=== PATIENT | female | born 1960 | race Caucasian/White ===

== ENCOUNTER → 2018-02-22 13:40 | Outpatient (CLI) | payer MEDICARE, MEDICAID, SELFPAY ==
--- NOTE | 2018-02-22 13:44 | ECHOD_ITS ---
Reason For Study: SOB, HTN Procedure This was a 2D Doppler, Color Flow transthoracic echocardiogram. The study was technically difficult. Exam performed in department. Left Ventricle Normal size and thickness. The estimated ejection fraction is 65 %. No regional wall motion abnormalities noted. Right Ventricle Normal size and thickness. Normal systolic function. Atria The left atrium is severely enlarged. Normal right atrium. Normal atrial septum. Mitral Valve Peak transmitral valve gradient 8 mmHg. Mean transmitral valve gradient 3 mmHg. Bioprosthetic mitral valve. Stable appearing bioprosthetic mitral valve apparatus. Tricuspid Valve Normal tricuspid valve. Mild (1+) tricuspid valve insufficiency. Right ventricular systolic pressure estimated to be 39 mmHg. Mild pulmonary hypertension. Aortic Valve Trisinus/trileaflet aortic valve. Mild diffuse aortic valve thickening. Trivial aortic valve insufficiency. Pulmonic Valve Normal pulmonic valve. Trivial pulmonic valve insufficiency. Great Vessels Normal aortic root. Normal arch. Normal inferior vena cava. Inferior vena cava collapse with sniff. Pericardium/Pleural No pericardial effusion. MMode/2D Measurements & Calculations LVIDd: 4.8 cm IVSd: 1.0 cm Ao root diam: 3.0 cm LVIDs: 3.3 cm LVPWd: 1.0 cm LA dimension: 4.3 cm RVDd: 3.7 cm FS: 31.0 % LAV(MOD-bp): 105.5 ml LA A4 area: 26.7 cm2 RA A4 area: 17.3 cm2 LAV(MOD-bp) Indexed: 65.9 ml/m2 LAV(MOD-sp2): 105.4 ml LAV(MOD-sp4): 93.0 ml Doppler Measurements & Calculations MV E max andry: 127.8 cm/sec Lat Peak E' Andry: 6.6 cm/sec Med Peak E' Andry: 6.2 cm/sec MV A max andry: 135.1 cm/sec E/E' lat: 19.2 E/E' med: 20.6 MV E/A: 0.95 MV V2 max: 141.4 cm/sec Ao V2 max: 151.3 cm/sec AI max andry: 352.0 cm/sec MV max P.0 mmHg Ao max P.2 mmHg AI max P.6 mmHg MV V2 mean: 84.3 cm/sec AI dec slope: 125.9 cm/sec2 MV mean P.1 mmHg AI P1/2t: 818.8 msec MV V2 VTI: 53.0 cm LV V1 max: 143.6 cm/sec PA V2 max: 72.3 cm/sec PI dec slope: 122.8 cm/sec2 LV V1 max P.3 mmHg TR max andry: 257.2 cm/sec TR max P.7 mmHg Interpretation Summary The estimated ejection fraction is 65 %. The left atrium is severely enlarged. Normal functioning bioprosthetic mitral valve. Mild (1+) tricuspid valve insufficiency. Right ventricular systolic pressure estimated to be 39 mmHg. Mild pulmonary hypertension. Trivial aortic valve insufficiency. There is no comparison study available. Ordering Physician: James Spivey Referring Physician: Naveen Chen Performed By: Lisa Cordova RDCS, RVT
== END ==
PROVIDERS: Family Provider Internal Medicine; PCP Internal Medicine; Visit Provider Internal Medicine Cardiovascular Disease
DX: R06.02 Shortness of breath (principal); I10 Essential (primary) hypertension; Z95.2 Presence of prosthetic heart valve
CPT/HCPCS: 93306

== ENCOUNTER → 2018-04-06 12:38 | Outpatient (CLI) | payer MEDICAID, MEDICARE, SELFPAY ==
--- NOTE | 2018-04-06 13:10 | RAD_ITS ---
STUDY: X-RAY - CERVICAL SPINE REASON FOR EXAM: Female, 57 years old. Pain, stiffness TECHNIQUE: 3 view(s) of the cervical spine were obtained. COMPARISON: None FINDINGS: There is curve reversal. There is mild degenerative anterolisthesis at C2-C3. There is marked degenerative disc disease at C3-C4, C4-C5, C5-C6 and C6-C7. There is mild Luschka joint arthrosis. There is multilevel facet osteoarthritis. There is mild curvature at the cervicothoracic region with a convexity to the right. C7-T1 poorly demonstrated on the lateral view. There is no fracture. There is no osseous destruction. The prevertebral soft tissue structures are intact. Craniotomy and median sternotomy noted. RAD/Cerv Spine 2 or 3 Views IMPRESSION: Marked degenerative disease of the cervical spine Mild degenerative anterolisthesis, C2-C3 Mild curvature at the cervicothoracic region with a convexity to the right Electronically Signed: [place] MD at 9:35 EDT Tel , Service support ,
== END ==
PROVIDERS: Family Provider Internal Medicine; PCP Internal Medicine; Visit Provider Nurse Practitioner Family
DX: Z78.0 Asymptomatic menopausal state (principal); M54.2 Cervicalgia
CPT/HCPCS: 72040; 77080

== ENCOUNTER → 2018-06-05 14:00 | Outpatient (CLI) | payer MEDICARE, SELFPAY ==
[2018-06-05 15:32] LABS: Absolute Lymphocyte Count 1.55 X10^3/ul (0.83-4.51); Absolute Neutrophil Count 4.8 X10^3/uL (2.0-7.7); Basophil# 0.04 X10^3/uL; Basophil% 0.5 % (0-1); Eosinophil# 0.34 X10^3/uL; Eosinophils% 4.6 % (0-5); Hematocrit 42.5 % (37-47); Hemoglobin 13.8 g/dl (12.0-15.0); Lymphocyte # 1.55 X10^3/ul (4.0); Mean Corp Hgb Conc 32.5 g/gl (32-36); Mean Corpuscular Hgb 29.1 pg (27.0-32.0); Mean Corpuscular Volume 89.5 fL (81-99); Mean Platelet Vol. 9.7 fl (6.2-12.0); Monocyte# 0.65 X10^3/uL; Monocyte% 8.8 % (0-10); Neutrophil # 4.78 X10^3/uL (2.7-7.7); Platelet Count 163 K/mm3 (150-450); RBC Distribution Width CV 13.6 % (11.6-14.6); RBC Distribution Width SD 44.2 fl (35.1-43.9); Red Blood Count 4.75 M/mm3 (4.2-5.4); White Blood Count 7.4 K/mm3 (4.4-11.0)
[2018-06-05 15:40] LABS: POSITIVE COUNT NO; POSITIVE DIFFERENTIAL NO; POSITIVE MORPHOLOGY NO
[2018-06-05 16:08] LABS: ALB/GLOB Ratio 1.2 RATIO (0.9-2.4); AST(SGOT) 22 U/L (15-37); Alanine Aminotransfer ALT/SGPT 26 U/L (13-56); Alkaline Phosphatase 75 U/L (45-117); Anion Gap 9 (5-15); BUN 11 mg/dL (7-18); Calcium,Total 8.7 mg/dL (8.5-10.1); Chloride 105 mmol/L (98-107); Cholesterol 231 mg/dL (200); Creatinine, Serum 0.65 mg/dL (0.55-1.02); EST Glomerular Filtration Rate 100 mL/min (>60); Est Glom Filt Rate - Afr Amer 120 mL/min (>60); Globulin 3.3 g/dL (2.2-4.2); Glucose 77 mg/dL (74-106); High Density Lipoprotein 59 mg/dL; Potassium 3.7 mmol/L (3.5-5.1); Protein, Total 7.3 g/dL (6.4-8.2); Sodium Level 140 mmol/L (136-145); Triglycerides 122 mg/dL; Very Low Density Lipoprotein 24 mg/dL (5-40)
== END ==
PROVIDERS: Family Provider Internal Medicine; PCP Internal Medicine; Referring Provider Internal Medicine; Visit Provider Internal Medicine
DX: I34.0 Nonrheumatic mitral (valve) insufficiency (principal); I10 Essential (primary) hypertension
CPT/HCPCS: 36415; 80053; 80061; 85025

== ENCOUNTER → 2018-09-07 10:47 | Outpatient (CLI) | payer MEDICARE, SELFPAY ==
[2018-08-10 15:16] VITALS: BMI 25.9
--- NOTE | 2018-09-07 14:29 | PFTCOMP ---
COMPLETE PULMONARY FUNCTION TEST INTERPRETATION Brief HPI: Patient is a 58 year old female, currently under the care of Dr. Chen, who presents to [facility] for complete pulmonary function tests secondary to diagnosis of dyspnea. Respiratory therapist reports good effort and reproducible results. Interpretation: Forced expiration spirometry shows a mild large airways obstructive ventilatory defect with an FEV1 of 87% predicted. There is no significant bronchodilator response by strict ATS criteria. Spirograms are of good quality and plateau slowly, indicating slowly emptying areas of the lungs. The respiratory flow volume loop shows decreased expiratory flow rates at high lung volumes consistent with small airways obstruction. Lung volumes by body plethysmography show a normal total lung capacity at 5.66 L, 103% predicted. All other lung volumes are within normal limits. Diffusion capacity by carbon monoxide is normal at 83% predicted. The airway resistance is normal. No previous pulmonary function tests were available for review. Impression: Irreversible mild large airways obstructive ventilatory defect in a pattern consistent with chronic bronchitis
== END ==
PROVIDERS: Family Provider Internal Medicine; PCP Internal Medicine; Referring Provider Internal Medicine; Visit Provider Internal Medicine
DX: R06.00 Dyspnea, unspecified (principal)
CPT/HCPCS: 94060; 94726; 94729

== ENCOUNTER → 2019-03-28 | Outpatient (CLI) | payer MEDICARE, SELFPAY ==
[2019-02-21 10:17] VITALS: BMI 24.1
--- NOTE | 2019-03-28 13:28 | RAD_ITS ---
STUDY: SWALLOWING STUDY REASON FOR EXAM: Female, 58 years old. Dysphagia. TECHNIQUE: The examination was performed with Speech Pathology in attendance. Under fluoroscopic observation, the patient ingested thin barium, thick barium, barium pudding, and barium coated cracker. FLUOROSCOPY TIME: 1:19 minutes/seconds. 1215 spot images were obtained. RADIOLOGIST INVOLVEMENT: Radiologist was present and providing direct supervision. COMPARISON: None. FINDINGS: The following was observed during swallowing of the various mixtures of barium: Thin Barium: There was no evidence of aspiration or laryngeal penetration. Barium Pudding: There was no evidence of aspiration or laryngeal penetration. Barium Coated Cracker: There was no evidence of aspiration or laryngeal penetration. RAD/Swallowing Function w/Video IMPRESSION: Normal tailored barium swallow study. No evidence of increased risk for aspiration. The swallow study findings were discussed with the patient by the speech pathologist at the conclusion of the examination. Please see speech pathology report for more information and recommendations. Electronically Signed: Francisco Campos, at 14:07 EDT , Service support ,
--- NOTE | 2019-03-28 15:35 | SP.MBSS_ITS ---
PRIMARY / SECONDARY DIAGNOSIS: dysphagia (R13.10) REFERRING PHYSICIAN: TAMARA Gipson CURRENT DIET: regular textures, thin liquids DENTITION: natural MENTAL STATUS: sufficient for participation. RESPIRATORY STATUS: O2 via room air REASON FOR REFERRAL: The Patient is a 58 year old female referred for a modified barium swallow (MBS) study to objectively assess the Patients oropharyngeal swallow function under fluoroscopy secondary to reports of dysphagia with both solids and liquids particularly over the last 3 to 4 weeks described best as post prandial globus sensation without substernal discomfort, with occasional ?scratchy throat? with odynophagia (at most 3/10, though this is not consistent) and fluctuating appetite. She reports prior workup (her description sounds similar to an upper GI series) approximately 5-10 years prior in [place], [place], with some similarities with symptomology (globus sensation and appetite alterations). MEDICAL HISTORY: Chronic obstructive pulmonary disease, chronic asthma, non-rheumatic mitral regurgitation status post mitral valve replacement, osteoarthritis, hypertension, anemia, gout, peptic ulcer disease, ulcerative colitis, status post back surgery. PREVIOUS MODIFIED BARIUM SWALLOW STUDY: None. ASSESSMENT PARAMETERS: The Patient participated in a Modified Barium Swallow (MBS) study on 03/28/2019. Dr. Campos was the radiologist present for this evaluation. This study was recorded in the lateral view and images were sent to PACs for storage. Scoring was completed through each trial using the 8-point Penetration-Aspiration Scale (PAS), and summarized via the Modified Barium Swallow Impairment Profile (MBSImP) and the Bolus Residue Scale (BRS), with severity scoring through the Dysphagia Severity Rating Scale (DSRS) and the Swallowing Performance Scale (PSP), and recommended diet textures through the International Dysphagia Diet Standardisation Initiative (IDDSI). RESULTS OF THE EVALUATION: The Patient presents with mastication and deglutition abilities found to be grossly within functional limits (DSRS: 1; SPS: 2) OBJECTIVE ASSESSMENT OF SWALLOW FUNCTION (QUANTITATIVE ? PER TRIAL): PENETRATION / ASPIRATION SCALE (NGUYEN): 1 = does not enter airway 2 = enters airway/above vocal folds/ejected 3 = enters airway/above vocal folds/not ejected 4 = enters airway/contacts vocal folds/ejected 5 = enters airway/contacts vocal folds/not ejected 6 = enters airway/below vocal folds/ejected 7 = enters airway/below vocal folds/not ejected despite effort 8 = enters airway/below vocal folds/no effort PENETRATION / ASPIRATION SCALE (SCORE): Thin liquid - 5 mL tsp.: 1 Thin liquids via cup (single sip): 2 Thin liquids via cup (single sip): 1 Thin liquids via cup (single sip): 1 Thin liquids via cup (sequential swallows): 1 Pudding via spoon: 1 Regular textured cookie: 1 Thin liquids via straw (sequential swallows): 2 OBJECTIVE ASSESSMENT OF SWALLOW FUNCTION (QUANTITATIVE ? AGGREGATE): MODIFIED BARIUM SWALLOW IMPAIRMENT PROFILE (MBSImP) LABIAL SEAL: 1 (of 4) interlabial escape, no progression TONGUE CONTROL: 2 (of 3) posterior escape < 50% BOLUS PREPARATION / MASTICATION: 0 (of 3) timely and efficient BOLUS TRANSPORT / LINGUAL MOTION: 3 (of 4) repetitive / disorganized motion ORAL RESIDUE: 2 (of 4) residue collection on oral structures INITIATION OF PHARYNGEAL SWALLOW: 2 (of 4) posterior surface of epiglottis SOFT PALATE ELEVATION: 0 (of 4) no bolus between soft palate & pharyngeal wall LARYNGEAL ELEVATION: 0 (of 3) complete superior movement / approximation ANTERIOR HYOID EXCURSION: 1 (of 2) partial movement EPIGLOTTIC MOVEMENT: 0 (of 2) complete inversion LARYNGEAL VESTIBULE CLOSURE: 0 (of 2) complete closure PHARYNGEAL STRIPPING WAVE: 0 (of 2) present / complete PE SEGMENT OPENIN (of 3) complete distension / duration; no obstruction TONGUE BASE RETRACTION: 1 (of 4) trace column of contrast PHARYNGEAL RESIDUE: 1 (of 4) trace residue ESOPHAGEAL BOLUS CLEARANCE: could not view BOLUS RESIDUE SCALE (BRS): 2 (of 6) residue in valleculae DYSPHAGIA SEVERITY RATING SCALE (DSRS): 1 (within functional limits) SWALLOWING PERFORMANCE SCALE (SPS): 2 (within functional limits) OBJECTIVE ASSESSMENT OF SWALLOW FUNCTION (QUALITATIVE): ORAL PREPARATORY PHASE: sufficient mastication rate and quality; sufficient anterior oral containment during presentation / manipulation; preserved management of breathing / bolus formation. ORAL TRANSITIONAL PHASE: occasional fragmented swallowing (piecemeal deglutition); very faint discoordinated lingual movements (lingual undulations) across trials with little impact on bolus transition; insufficient oral containment with premature posterior bolus loss directly contributing to intermittent transient penetration with thin liquids, though occasional transient penetration is not considered to be significantly outside normal values for age matched peers. PHARYNGEAL PHASE: no clinically significant signs of pharyngeal dyssynchrony; appropriate hyolaryngeal excursion and laryngeal vestibule closure / pressure; no signs of pharyngeal dysmotility; no signs of velopharyngeal impairments; no further penetration / no aspiration throughout trials. ESOPHAGEAL PHASE: no obvious esophageal phase abnormalities observed. RESPONSE TO STRATEGIES: all deficits managed successfully with reduction in bolus rate / volume adjustments. INTERVENTION RECOMMENDATIONS AND CONSIDERATIONS: The Patient presents with mastication and deglutition abilities found to be grossly within functional limits. Noted oral transitional phase findings (fine lingual undulations) may potentially be exacerbated with suboptimal intake positioning, though otherwise would not pose a direct negative impact on intake sufficiency at the current time (though these findings are most commonly identified in progressive neurological etiologies if not directly associated with an acute neurological incident). Again, this finding was very mild in nature, and does not directly suggest a neurological etiology. 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 No further skilled speech-language services warranted at this time targeting dysphagia. POST ASSESSMENT EDUCATION: Results and recommendations were discussed with the Patient immediately following MBS completion, with the Patient verbalizing understanding and agreement with all recommendations and education provided. I provided brief overview of signs and symptoms of aspiration, with recommendations for the Patient to further discuss symptoms with the Patients primary care provider. DIET TEXTURE RECOMMENDATIONS: Will recommend a regular ? soft textured (IDDSI: 6), thin liquid diet (IDDSI: 0) diet RECOMMENDED COMPENSATORY STRATEGIES: Reduced bolus volume / rate of ingestion, seated upright at 90 degrees during PO intake, remain upright for 30-60 minutes post meal (GERD precaution). IMAGE COUNT: 1215 Kaamri [address] M.A., CCC-SURGICAL SUPPLY ASSISTANT MBSImP Certified, LSVT Certified [facility] Speech-Language Pathology Department [email or web address]
== END | disposition home or self-care (01) ==
LOC: RAD 13:25
PROVIDERS: Family Provider Internal Medicine; PCP Internal Medicine; Referring Provider Nurse Practitioner Acute Care; Visit Provider Nurse Practitioner Acute Care
DX: R13.10 Dysphagia, unspecified (principal)
CPT/HCPCS: 74230; 92611

== ENCOUNTER → 2019-05-11 | Outpatient (CLI) | payer MEDICARE, SELFPAY ==
[2019-05-10 14:27] VITALS: BMI 24.1
[2019-05-11 12:55] LABS: Absolute Lymphocyte Count 1.99 X10^3/uL (0.83-4.51); Absolute Neutrophil Count 15.3 X10^3/uL (2.0-7.7); Basophil# 0.12 X10^3/uL; Basophil% 0.6 % (0-1); Eosinophil# 0.57 X10^3/uL; Eosinophils% 2.9 % (0-5); Hematocrit 47.8 % (37-47); Hemoglobin 15.2 g/dL (12.0-15.0); Lymphocyte # 1.99 X10^3/ul (4.0); Lymphocyte % 10.1 % (19-41); Mean Corp Hgb Conc 31.8 g/dL (32-36); Mean Corpuscular Hgb 29.1 pg (27.0-32.0); Mean Corpuscular Volume 91.4 fL (81-99); Mean Platelet Vol. 10.8 fl (6.2-12.0); Monocyte# 1.61 X10^3/uL; Monocyte% 8.2 % (0-10); NRBC Flagged by Analyzer 0 % (0-5); Neutrophil # 15.29 X10^3/uL (2.7-7.7); Neutrophil % 77.8 % (47-70); POSITIVE DIFFERENTIAL YES; Platelet Count 248 K/mm3 (150-450); RBC Distribution Width CV 13.5 % (11.6-14.6); RBC Distribution Width SD 45.5 fl (35.1-43.9); Red Blood Count 5.23 M/mm3 (4.2-5.4); White Blood Count 19.7 K/mm3 (4.4-11.0)
[2019-05-11 13:02] LABS: Differential Indicated SCAN CRITERIA MET
[2019-05-11 13:12] LABS: ALB/GLOB Ratio 1.3 RATIO (0.9-2.4); AST(SGOT) 22 U/L (15-37); Alanine Aminotransfer ALT/SGPT 29 U/L (13-56); Albumin, Serum 4.5 g/dL (3.2-5.0); Alkaline Phosphatase 69 U/L (45-117); Anion Gap 10 (5-15); BUN 14 mg/dL (7-18); BUN/Creat Ratio 15.9 RATIO (10-20); Calcium,Total 9.1 mg/dL (8.5-10.1); Chloride 110 mmol/L (98-107); Cholesterol 220 mg/dL (200); Creatinine, Serum 0.88 mg/dL (0.55-1.02); EST Glomerular Filtration Rate 70 mL/min (>60); Est Glom Filt Rate - Afr Amer 84 mL/min (>60); Globulin 3.5 g/dL (2.2-4.2); Glucose 99 mg/dL (74-106); High Density Lipoprotein 55 mg/dL; Potassium 3.9 mmol/L (3.5-5.1); Sodium Level 142 mmol/L (136-145); Thyroid Stim Hormone (TSH) 0.29 uIU/mL (0.358-3.74); Triglycerides 182 mg/dL; Very Low Density Lipoprotein 36 mg/dL (5-40)
[2019-05-11 13:48] LABS: Platelet Estimate ADEQUATE (ADEQ); Red Cell Morphology NORM C+C NORMAL (NORM C&C)
[2019-05-14 12:16] LABS: Pathologist Review Reviewed
== END | disposition home or self-care (01) ==
LOC: BIMLAB 10:22
PROVIDERS: Family Provider Internal Medicine; PCP Internal Medicine; Visit Provider Internal Medicine
DX: I10 Essential (primary) hypertension (principal); K21.9 Gastro-esophageal reflux disease without esophagitis; Z13.29 Encounter for screening for other suspected endocrine disorder
CPT/HCPCS: 36415; 80053; 80061; 84443; 85025

== ENCOUNTER → 2019-05-16 | Outpatient (CLI) | payer MEDICARE, SELFPAY ==
[2019-05-10 14:27] VITALS: BMI 24.1
[2019-05-16 12:38] LABS: Absolute Lymphocyte Count 2.56 X10^3/uL (0.83-4.51); Absolute Neutrophil Count 7.9 X10^3/uL (2.0-7.7); Basophil# 0.11 X10^3/uL; Basophil% 0.9 % (0-1); Eosinophil# 0.37 X10^3/uL; Eosinophils% 3.1 % (0-5); Hematocrit 49.7 % (37-47); Hemoglobin 15.7 g/dL (12.0-15.0); Lymphocyte # 2.56 X10^3/ul (4.0); Lymphocyte % 21.3 % (19-41); Mean Corp Hgb Conc 31.6 g/dL (32-36); Mean Corpuscular Hgb 29.2 pg (27.0-32.0); Mean Corpuscular Volume 92.6 fL (81-99); Mean Platelet Vol. 10.8 fl (6.2-12.0); Monocyte# 1.06 X10^3/uL; Monocyte% 8.8 % (0-10); NRBC Flagged by Analyzer 0 % (0-5); Neutrophil # 7.87 X10^3/uL (2.7-7.7); Neutrophil % 65.3 % (47-70); Platelet Count 260 K/mm3 (150-450); RBC Distribution Width CV 13.2 % (11.6-14.6); Red Blood Count 5.37 M/mm3 (4.2-5.4)
== END | disposition home or self-care (01) ==
LOC: BIMLAB 09:40
PROVIDERS: Family Provider Internal Medicine; PCP Internal Medicine; Visit Provider Internal Medicine
DX: D72.829 Elevated white blood cell count, unspecified (principal)
CPT/HCPCS: 36415; 85025

== ENCOUNTER → 2019-06-11 | Outpatient (CLI) | payer MEDICARE, SELFPAY ==
[2019-06-11 13:38] VITALS: BMI 24.1
[2019-06-11 16:58] LABS: Mucous, Urine 0 SEEN /hpf (<or=2+)
[2019-06-11 17:36] LABS: Color, Urine Yellow (Yellow); Glucose, Dipstick Normal (Normal); Ketone-Dipstick Negative (Negative); Leukocyte Esterase-Dipstick 500 /ul (Negative); Nitrite-Dipstick Negative (Negative); Occult Blood-Urine 25 /ul (Negative); Protein-Dipstick Negative (Negative); Urine Bilirubin Dipstick Negative (Negative); Urine Clarity Sl. Cloudy (Clear); Urine Urobilinogen Normal (Normal)
[2019-06-11 18:04] LABS: White Blood Cells 10-25 SEEN /hpf (0-5)
[2019-06-11 18:05] LABS: Bacteria RARE /hpf (None Seen); Red Blood Cells-Urine 0-5 SEEN /hpf (0-5); Squamous Epithelial Cells - UA 0-5 SEEN /hpf (5-10)
== END | disposition home or self-care (01) ==
LOC: LABSPEC 15:36
PROVIDERS: Family Provider Internal Medicine; PCP Internal Medicine; Referring Provider Internal Medicine; Visit Provider Internal Medicine
DX: R10.2 Pelvic and perineal pain (principal)
CPT/HCPCS: 81001

== ENCOUNTER → 2019-06-12 | Outpatient (CLI) | payer MEDICARE, SELFPAY ==
[2019-06-11 13:38] VITALS: BMI 24.1
[2019-06-12 12:25] LABS: Absolute Lymphocyte Count 2.33 X10^3/uL (0.83-4.51); Absolute Neutrophil Count 6.1 X10^3/uL (2.0-7.7); Eosinophil# 0.65 X10^3/uL; Eosinophils% 6.3 % (0-5); Hematocrit 49.1 % (37-47); Lymphocyte # 2.33 X10^3/ul (4.0); Lymphocyte % 22.7 % (19-41); Mean Corp Hgb Conc 32.6 g/dL (32-36); Mean Corpuscular Hgb 29.3 pg (27.0-32.0); Mean Corpuscular Volume 89.8 fL (81-99); Mean Platelet Vol. 10.6 fl (6.2-12.0); Monocyte# 1.07 X10^3/uL; Monocyte% 10.4 % (0-10); NRBC Flagged by Analyzer 0 % (0-5); Neutrophil # 6.06 X10^3/uL (2.7-7.7); Neutrophil % 59.2 % (47-70); Platelet Count 310 K/mm3 (150-450); RBC Distribution Width CV 12.6 % (11.6-14.6); RBC Distribution Width SD 41.4 fl (35.1-43.9); Red Blood Count 5.47 M/mm3 (4.2-5.4); White Blood Count 10.3 K/mm3 (4.4-11.0)
[2019-06-12 12:42] LABS: T4 Free Direct 1.11 ng/dL (0.76-1.46); Thyroid Stim Hormone (TSH) 0.63 uIU/mL (0.358-3.74)
== END | disposition home or self-care (01) ==
LOC: BIMLAB 10:02
PROVIDERS: Family Provider Internal Medicine; PCP Internal Medicine; Visit Provider Internal Medicine
DX: R94.6 Abnormal results of thyroid function studies (principal); D72.829 Elevated white blood cell count, unspecified
CPT/HCPCS: 36415; 84439; 84443; 85025

== ENCOUNTER → 2019-06-14 | Outpatient (CLI) | payer MEDICARE, SELFPAY ==
[2019-06-11 13:38] VITALS: BMI 24.1
== END | disposition home or self-care (01) ==
LOC: BIMLAB 09:37
PROVIDERS: Family Provider Internal Medicine; PCP Internal Medicine; Visit Provider Internal Medicine
DX: R10.2 Pelvic and perineal pain (principal)
CPT/HCPCS: 87077; 87086; 87088; 87186

== ENCOUNTER → 2019-10-15 09:46 | Outpatient (CLI) | payer MEDICARE, SELFPAY ==
[2019-10-12 13:37] VITALS: BMI 25.5
[2019-10-15 13:13] LABS: Anion Gap 9 (5-15); BUN 11 mg/dL (7-18); BUN/Creat Ratio 12.3 RATIO (10-20); Calcium,Total 9.4 mg/dL (8.5-10.1); Chloride 105 mmol/L (98-107); Creatinine, Serum 0.89 mg/dL (0.55-1.02); EST Glomerular Filtration Rate 68 mL/min (>60); Est Glom Filt Rate - Afr Amer 83 mL/min (>60); Glucose 54 mg/dL (74-106); Potassium 4.1 mmol/L (3.5-5.1); Sodium Level 139 mmol/L (136-145)
[2020-04-29 13:57] VITALS: BMI 24.1
== END ==
PROVIDERS: PCP Internal Medicine; Referring Provider Internal Medicine; Visit Provider Internal Medicine
DX: I10 Essential (primary) hypertension (principal)
CPT/HCPCS: 36415; 80048

== ENCOUNTER → 2020-04-29 14:38 | Outpatient (CLI) | payer MEDICARE, MEDICAID, SELFPAY ==
[2020-04-29 13:57] VITALS: BMI 24.1
[2020-04-29 17:14] LABS: Absolute Lymphocyte Count 1.15 X10^3/uL (0.83-4.51); Absolute Neutrophil Count 7.1 X10^3/uL (2.0-7.7); Basophil# 0.08 X10^3/uL; Basophil% 0.9 % (0-1); Eosinophil# 0.07 X10^3/uL; Eosinophils% 0.8 % (0-5); Hematocrit 49.6 % (37-47); Hemoglobin 15.5 g/dL (12.0-15.0); Lymphocyte # 1.15 X10^3/ul (4.0); Lymphocyte % 12.5 % (19-41); Mean Corp Hgb Conc 31.3 g/dL (32-36); Mean Corpuscular Hgb 28.1 pg (27.0-32.0); Mean Corpuscular Volume 89.9 fL (81-99); Mean Platelet Vol. 10.3 fl (6.2-12.0); Monocyte# 0.79 X10^3/uL; Monocyte% 8.6 % (0-10); NRBC Flagged by Analyzer 0 % (0-5); Neutrophil # 7.08 X10^3/uL (2.7-7.7); Neutrophil % 76.8 % (47-70); Platelet Count 254 K/mm3 (150-450); RBC Distribution Width CV 14.5 % (11.6-14.6); RBC Distribution Width SD 48.2 fl (35.1-43.9); Red Blood Count 5.52 M/mm3 (4.2-5.4); White Blood Count 9.2 K/mm3 (4.4-11.0)
[2020-04-29 17:33] LABS: ALB/GLOB Ratio 1.2 RATIO (0.9-2.4); AST(SGOT) 26 U/L (15-37); Alanine Aminotransfer ALT/SGPT 26 U/L (13-56); Albumin, Serum 4.3 g/dL (3.2-5.0); Alkaline Phosphatase 70 U/L (45-117); Anion Gap 6 (5-15); BUN 11 mg/dL (7-18); BUN/Creat Ratio 14.7 RATIO (10-20); Calcium,Total 8.9 mg/dL (8.5-10.1); Chloride 109 mmol/L (98-107); Cholesterol 213 mg/dL (200); Creatinine, Serum 0.75 mg/dL (0.55-1.02); EST Glomerular Filtration Rate 84 mL/min (>60); Est Glom Filt Rate - Afr Amer 101 mL/min (>60); Globulin 3.6 g/dL (2.2-4.2); Glucose 77 mg/dL (74-106); High Density Lipoprotein 73 mg/dL; Potassium 3.9 mmol/L (3.5-5.1); Protein, Total 7.9 g/dL (6.4-8.2); Sodium Level 140 mmol/L (136-145); Triglycerides 157 mg/dL; Very Low Density Lipoprotein 31 mg/dL (5-40)
== END ==
PROVIDERS: PCP Internal Medicine; Referring Provider Internal Medicine; Visit Provider Internal Medicine
DX: J44.9 Chronic obstructive pulmonary disease, unspecified (principal); I10 Essential (primary) hypertension
CPT/HCPCS: 36415; 80053; 80061; 85025

== ENCOUNTER → 2020-09-03 14:40 | Outpatient (CLI) | payer MEDICARE, MEDICAID, SELFPAY ==
[2020-06-23 14:38] VITALS: BMI 22.8
--- NOTE | 2020-09-03 15:44 | NEURO ---
NCS and/or EMG Patient Report Ordering Doctor: Giuseppe Paris DATE OF SERVICE: 09/03/20 Alia Milner presents for electrodiagnostic testing of the right upper limb. She reports numbness in the fifth digit of the right hand for the past several months. She has had multiple elbow surgeries. Electrodiagnostic findings: Right median motor nerve demonstrates normal distal latency, amplitude and conduction velocity. Right ulnar motor nerve demonstrates normal distal latency and amplitude with an approximately 40% drop in conduction across the elbow. Prolonged right ulnar F wave is noted. Borderline prolonged right median sensory latency. 1+ fibrillations are noted in the right flexor carpi ulnaris. Electrodiagnostic impression: This is an abnormal study of the right upper limb 1. Electrodiagnostic findings suggestive of right ulnar neuropathy. This is consistent with a moderate to advanced right cubital tunnel syndrome. 2. There are borderline findings for right-sided median mononeuropathy. No clinical symptoms of carpal tunnel syndrome are noted. If there are any further questions, please do not hesitate to contact me
== END ==
PROVIDERS: PCP Internal Medicine; Referring Provider Orthopaedic Surgery; Visit Provider Orthopaedic Surgery
DX: G56.21 Lesion of ulnar nerve, right upper limb (principal); M62.541 Muscle wasting and atrophy, not elsewhere classified, right hand
CPT/HCPCS: 95886; 95913

== ENCOUNTER 2020-10-21 06:35 | Day surgery (SDC) | payer MEDICARE, MEDICAID, SELFPAY ==
[2020-06-23 14:38] VITALS: BMI 22.8
[2020-10-21 07:07] VITALS: BP 126/86; PULSE 66; RESP 16; TEMP 36.7; O2SAT 95; BMI 22.1
[2020-10-21] MEDS: Lactated Ringers 1,000 ML 100 ML IV (07:13)
--- NOTE | 2020-10-21 07:22 | PCM.HP.BLA ---
History and Physical Date of Admission: 10/21/20 Intake Intake Visit Reasons: right hand Chief Complaint: f/u visit Allergies linezolid [From Zyvox] Allergy (Unknown, Verified 10/15/19 09:26) Unknown vancomycin Allergy (Unknown, Verified 10/15/19 09:26) Unknown ibuprofen Adverse Reaction (Verified 10/15/19 09:26) Unknown tramadol Adverse Reaction (Verified 10/15/19 09:26) Unknown [facility] Medical History (Updated 06/23/20 @ 14:52 by Mareclina Brewer) Asthma (Chronic) Non-rheumatic mitral regurgitation (Chronic) Hypertension (Chronic) hx of right elbow sugrery (Acute) Anemia (Chronic) COPD (chronic obstructive pulmonary disease) (Chronic) Gout (Chronic) Osteoarthritis (Chronic) Peptic ulcer disease (Chronic) Ulcerative colitis (Chronic) Surgical History H/O mitral valve replacement (Chronic) History of back surgery (Acute) Family History Mother Diabetes Social History (Updated 10/01/20 @ 10:[address] Giuseppe Paris DO) Smoking Status: Former smoker Tobacco: How many years used: 1 how long ago did patient quit smokin, 1ppd second hand exposure: Yes alcohol intake: current alcohol intake frequency: holidays/special occasions only substance use type: does not use what type of physical activity do you participate in: none HPI right hand: Details: Parts of this documentation were recorded by a scribe, this documentation accurately reflects the service provided and the decisions made by me, Dr. Giuseppe Paris DO 10/01/20 075. BLAS LUJAN is a 60 year old F here today for F/U on right hand/elbow after having EMG completed. SHe continues to have numbness and weakness of the right hand. SHe states that she has numbness and tingling mainly in the 5th digit. She does have a hx of right elbow scope with Dr. Mix for spur removal per patient. She is also having right elbow pain. Ortho Exam General General: Yes no acute distress Neurologic: Yes alert, Yes oriented x3 Psychologic: Yes reasonable and appropriate Right Wrist/Hand Skin/Wound: No Swelling, No Ecchymosis, Yes capillary refill normal Right Wrist: Yes Thenar Atrophy WRIST: hypothenar atrophy noted inner osseous wasting Left Wrist/Hand Skin/Wound: No Swelling, No Ecchymosis Right Elbow Skin/Wound: No eccymosis, No erythema, No Swelling ELBOW: hypertrophic elbow lacking 55 elbow extension full flexion full supination crepitation at elbow 85 pronation hypothenar artrophy noted Supplemental Info 09/03/2020 EMG right upper extremity advanced cubital tunnel syndrome 06/23/2020 x-ray right elbow advanced ulnohumeral and radiocapitellar arthrosisAnd proximal radial ulnar joint arthrosisThere is ossification of the lateral collateral ligament Assessment & Plan Problems 1. Cubital tunnel syndrome on right G56.21 Plan Patient educated that the EMG shows moderate to advanced right cubital tunnel syndrome. 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 Recommended a ulnar nerve decompression vs transposition which will take the pressure of the nerve to allow the nerve to regenerate and possibly allow her nerve to regenerate. Educated that this may not take away her numbness and tingling but it will keep it from worsening.As her atrophy is permanent, Educated that the surgery will not do anything to help with the elbow ROM or pain. Reviewed the pre-operative plans with the patient. Risks and benefits of the procedure were fully explained, including but not limited to infection, neurovascular injury, continued pain, arthritis, stiffness, need for further surgery, re-injury, DVT, PE, general risks of anesthesia, and loss of limb or life expected post operative course. The patient understands all the risks and does wish to proceed with written consent for right ulnar nerve decompression vs transposition at the elbow, surgery as indicated. Follow up 2 weeks post op or sooner if pain, swelling, numbness or associated symptoms, or concerns develop. All questions answered. Patient in agreement of plan. Coding Level of Care Code Off vis,est,level 3 Diagnoses Cubital tunnel syndrome on right G56.21 I have re-examined the patient. There are no clinical changes since date of exam Procedure Criteria Procedure Type: Elective COVID Risk Discussion: The surgeon/proceduralist and patient have discussed in detail the risk of exposure to and/or potential harm posed by the COVID-19 virus with having a surgery/procedure at this time versus the risk of delaying the surgery/procedure. It is not possible to know either the risk of delaying the surgery or procedure or chance of getting an infection with perfect accuracy, but a joint decision was made between the patient and the surgeon/proceduralist to proceed at this time with the scheduled surgery/procedure as indicated on the consent form.
[2020-10-21] MEDS: Cefazolin 2 GM in 0.9% Normal Saline 100 ML IV (10:30)
[2020-10-21] MEDS: Bupiv/Epi 0.5% Mpf 30 ML Vial (11:18)
--- NOTE | 2020-10-21 11:25 | PCM.DC.ORTHO ---
Discharge Diet: No Restrictions Keep extremity elevated above heart level: Operative Extremity Additional Instructions: Encourage elbow wrist and finger range of motion immediately. Do not lift push or pull with operative extremity. Leave dressing on clean and dry for 48 hours. Then may remove and begin showering with antibacterial soap. Do not submerge completely as in tub pool or pond for 3 weeks postop. May cover with large Band-Aid to avoid stitch irritation. Follow-up in 2 weeks call with any questions or concerns. Allergies/Adverse Reactions: Allergies linezolid [From Zyvox] Allergy (Unknown, Verified 10/21/20 06:48) Unknown vancomycin Allergy (Unknown, Verified 10/21/20 06:48) Unknown ibuprofen Adverse Reaction (Verified 10/21/20 06:48) Unknown tramadol Adverse Reaction (Verified 10/21/20 06:48) Unknown Medications to take at Discharge aspirin 81 mg tablet,delayed release 81 mg PO QDAY #90 tab 11/16/18 risperidone 1 mg tablet 1 mg PO QHS 11/16/18 omeprazole 40 mg capsule,delayed release 40 mg PO QDAY #90 cap 05/10/19 budesonide-formoterol HFA 160 mcg-4.5 mcg/actuation aerosol inhaler 2 puff INHALATION BID #1 device 09/07/19 tizanidine 4 mg tablet 4 mg PO BID PRN #60 tab 07/28/20 Albuterol Sulfate [Albuterol Sulfate HFA] See Rx Instructions .ROUTE PRN PRN 10/14/20 Allopurinol 100 mg PO DAILY 10/14/20 Fluticasone Propionate 2 spray INTRANASAL PRN PRN 10/14/20 Gabapentin [Neurontin] 300 mg PO BID 10/14/20 Metoprolol Tartrate 25 mg PO QHS 10/14/20 Metoprolol Tartrate 50 mg PO DAILY 10/14/20 Oxycodone [Oxyir] 5 mg PO Q4H PRN PRN #20 tablet 10/21/20 The following prescriptions were given: Oxycodone [Oxyir] 5 mg PO Q4H PRN PRN #20 tablet PRN Reason: Pain Score 6-10 Transmission Status: Received by [facility]/pharmacy #[id number] Primary Care Physician: Naveen Chen MD [Primary Care Provider] - Test Results: Test results from this visit will be discussed in further detail at your follow-up appointment, if applicable. Please Follow Up With: Giuseppe Paris DO - 2 weeks
--- NOTE | 2020-10-21 11:28 | PCM.OPRPT ---
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 Patient did have prior surgery of the right elbow with severe OA with severe stiffness with an ill inability to extend the elbow lacking 70 degrees, risks benefits and alternatives were reviewed including risks of bleeding infection nerve artery tissue damage need for further surgery and continued pain need for possible transposition of nerve if nerve unstable after decompression Procedure: The patient was met in the preoperative holding area the operative extremity was identified by both patient and physician and was marked the patient was met by anesthesia and brought back to the operating room and transferred to the operating table in the supine position. Aanesthesia was started. The patient was prepped and draped in the usual sterile fashion. A well-padded tourniquet was placed on the operative upper extremity in a sterile fashion . A timeout was called to ensure the proper patient procedure and extremity were being contemplated. An Esmarch was used to exsanguinate the extremity. The tourniquet was inflated to 250 mmHg. First we turned our attention to the elbow made a curvilinear skin incision over the path of the ulnar nerve dissection was carried down as full-thickness flaps with attention to avoid any crossing branches of medial antebrachial cutaneous nerves. electrocautery was used for hemostasis, the ulnar nerve was reached the nerve was then identified proximally. dissection to free it from the surrounding soft tissue was performed until its distal extent splitting of the 2 heads of the FCU nerve was mobilized and proximally up to the medial intermuscular septum and there was no further constrictions proximally. The release was carried out on the dorsal side of the tunnel and when the elbow was brought through range of motion there was no subluxation of the nerve. the elbow was brought through range of motion and was felt it was free of constriction and stable without subluxation therefore subcutaneous closure with 3-0 Vicryl followed by 3-0 nylon horizontal matrress stitches. Dressing was applied in the form of Xeroform 4 x 4 ABD web roll and an Ashish wrap from the hand to the axilla. Patient tolerated the procedure well there was no intraoperative complications will follow-up in 2 weeks .
[2020-10-21 11:31] VITALS: BP 122/81; BP 126/86; PULSE 74; RESP 16; TEMP 36.1; O2SAT 98
[2020-10-21 11:45] VITALS: BP 126/86; BP 139/86; PULSE 69; RESP 16; O2SAT 97
[2020-10-21 11:53] VITALS: BP 126/86; BP 138/88; PULSE 68; RESP 16; TEMP 36.2; O2SAT 97
[2020-10-21 12:20] VITALS: BP 126/86
== END 2020-10-21 12:43 | disposition home or self-care (01) ==
LOC: SDC 06:35 → AC 06:36
PROVIDERS: PCP Internal Medicine; Referring Provider Orthopaedic Surgery; Visit Provider Orthopaedic Surgery
PROC: (CPT 64718; principal; 2020-10-21 09:45)
DX: G56.21 Lesion of ulnar nerve, right upper limb (principal); Z20.828 Contact with and (suspected) exposure to other viral communicable diseases; I10 Essential (primary) hypertension; M19.90 Unspecified osteoarthritis, unspecified site; M10.9 Gout, unspecified; K51.90 Ulcerative colitis, unspecified, without complications; J44.9 Chronic obstructive pulmonary disease, unspecified; Z79.899 Other long term (current) drug therapy; Z79.51 Long term (current) use of inhaled steroids; Z79.82 Long term (current) use of aspirin; Z87.891 Personal history of nicotine dependence; Z95.2 Presence of prosthetic heart valve
CPT/HCPCS: 01710; 64718; 87426; C9803; J7120

== ENCOUNTER → 2021-02-26 15:19 | Outpatient (CLI) | payer MEDICARE, MEDICAID, SELFPAY ==
[2021-02-04 13:10] VITALS: BMI 22.1
--- NOTE | 2021-02-26 15:22 | BI_ITS ---
MAMMOGRAPHY - BILATERAL SCREENING REASON FOR EXAM: Female, 60 years old. Routine annual screening examination. PERTINENT HISTORY: Non-contributory. TECHNIQUE: Digital bilateral breast mami (3D mammographic acquisition) in the CC and MLO projections. 2-D mediolateral oblique (MLO) and craniocaudad (CC) views of both breasts were obtained. CAD: Full Field Digital Mammography with Computer Added Detection was performed. COMPARISON: No comparison mammograms available at this time. If any prior films become available, an addendum to this report can be generated. FINDINGS: Breast Composition: The breasts are heterogeneously dense, which may obscure small masses. There are no dominant masses or suspicious calcifications. No other significant abnormalities are identified. BI/SCRN MAMM (CAD)W/MAMI BILAT IMPRESSION: Negative screening mammogram. Yearly followup mammogram recommended. (A) ASSESSMENT CATEGORY: BIRADS Category 1: Negative. A letter regarding these results will be sent to the patient by the facility within 30 days. Approximately 10% of breast cancers are not detected by mammography. A normal mammogram should not delay biopsy of a clinically suspicious abnormality. [id number] Electronically Signed: Francisco Campos MD at 8:09 EDT , Service support ,
--- NOTE | 2021-02-26 15:30 | BD_ITS ---
STUDY: DUAL ENERGY X-RAY ABSORPTIOMETRY / DXA REASON FOR EXAM: Female, 60 years old. Screening. The patient is postmenopausal. Loss of height. TECHNIQUE: Bone Mineral Density (BMD) measurements of lumbar spine and bilateral hips were obtained. COMPARISON: Comparison is made with prior study dated 04/06/2018. FINDINGS: Lumbar Spine (L1-L4): g/cm2 (0.940) / T-score (-2.2) / Z-score (-0.8) Findings are suggestive of osteopenia with a high fracture risk. 50% loss of height of the T12 vertebrae. Left Femur Total: g/cm2 (0.777) / T-score (-1.8) / Z-score (-0.8) Left Femoral Neck: g/cm2 (0.752) / T-score (-2.1) / Z-score (-0.7) Right Femur Total: g/cm2 (0.781) / T-score (-1.8) / Z-score (-0.8) Right Femoral Neck: g/cm2 (0.692) / T-score (-2.5) / Z-score (-1.2) The T-Scores on the most recent prior examination were: Lumbar Spine (L1-L4): There has been improvement of bone density since the previous examination. Left Femur Total: which represents a worsening of 0.8%. Right Femur Total: which represents a worsening of 4.4%. BD/Dexa Bone Density Study IMPRESSION: The patient is considered osteopenic as outlined below according to World Boby Organization (WHO) criteria with a high fracture risk. There has been worsening of bone density since the previous examination. Reference Information: The T-score is the number of standard deviations above or below the standard which is normal for young adults at their peak bone mineral density. The World Health Organization (WHO) interprets the T-scores as follows: Above -1 Normal bone density Between -1 and -2.5 Osteopenia Equal to / or below -2.5 Osteoporosis As a practical clinical guideline, osteopenia may be graded as follows: Mild -1 through -1.5 Moderate -1.6 through -2.0 Severe -2.1 through -2.4 The Z-score is the number of standard deviations above or below age-matched controls. A Z-score of less than -1.5 would be considered abnormal. References: 1. NIH Osteoporosis and Related Bone Diseases www osteo.org 2. International Society for Clinical Densitometry www iscd.org 3. National Osteoporosis Foundation www nof.org Electronically Signed: Francisco Campos MD at 10:07 EDT , Service support ,
== END ==
PROVIDERS: PCP Internal Medicine; Referring Provider Nurse Practitioner Family; Visit Provider Nurse Practitioner Family
DX: Z78.0 Asymptomatic menopausal state (principal); Z12.31 Encounter for screening mammogram for malignant neoplasm of breast
CPT/HCPCS: 77063; 77067; 77080

== ENCOUNTER → 2021-08-20 13:21 | Outpatient (CLI) | payer MEDICARE, MEDICAID, SELFPAY | PROVIDERS: PCP Internal Medicine; Referring Provider Internal Medicine; Visit Provider Internal Medicine | DX: U07.1 COVID-19 (principal) | CPT/HCPCS: 87635; U0005; U0003 ==

== ENCOUNTER 2021-09-09 10:46 | Emergency (ER) | payer MEDICARE, MEDICAID, SELFPAY ==
[2021-09-09 10:47] VITALS: BP 110/84; PULSE 88; RESP 18; TEMP 35.4; O2SAT 100; BMI 22.1
[2021-09-09 11:07] VITALS: O2SAT 95
--- NOTE | 2021-09-09 11:17 | EDS_ITS ---
HPI History of Present Illness Chief Complaint: Shortness of Breath Narrative Narrative: 61-year-old female presenting with dyspnea, body aches, generalized fatigue. She states has been this way for weeks. She tested positive for COVID on 19 August. She was ill prior to this but cannot narrow down to date. This puts her at 21 days post testing. Patient has not had any chest pain. She states that she has had some diarrhea since the time she was diagnosed. She states that even though she is weak she was able to ambulate to her car and get a ride to the emergency room where she walked into the emergency room. She has not had any falls. [facility] Medical History Anemia Asthma COPD (chronic obstructive pulmonary disease) Gout hx of right elbow sugrery Hypertension Muscle spasm Non-rheumatic mitral regurgitation Osteoarthritis Peptic ulcer disease Suspected COVID-19 virus infection Ulcerative colitis URI (upper respiratory infection) Home Medications albuterol sulfate 90 mcg/actuation aerosol inhaler See Rx Instructions .ROUTE PRN PRN #8.5 g 02/04/21 [Rx Last Taken Unknown] aspirin 81 mg tablet,delayed release 81 mg PO QDAY #90 tab 02/04/21 [Rx Last Taken Unknown] metoprolol tartrate 25 mg tablet 50 mg PO DAILY #270 tab 02/04/21 [Rx Last Taken Unknown] omeprazole 40 mg capsule,delayed release 40 mg PO QDAY #90 cap 02/04/21 [Rx Last Taken Unknown] gabapentin 300 mg capsule 300 mg PO BID #180 cap 02/05/21 [Rx Last Taken Unknown] alendronate 35 mg tablet 35 mg PO QWEEK #20 tab 03/03/21 [Rx Last Taken Unknown] allopurinol 100 mg tablet 100 mg PO DAILY #90 tab 05/01/21 [Rx Last Taken Unknown] budesonide-formoterol HFA 160 mcg-4.5 mcg/actuation aerosol inhaler 2 puff INHALATION BID #1 device 08/19/21 [Rx Last Taken Unknown] fluticasone propionate 50 mcg/actuation nasal spray,suspension 2 spray INTRANASAL PRN PRN #16 g 08/19/21 [Rx Last Taken Unknown] tizanidine 4 mg tablet 4 mg PO BID PRN 90 Days #180 tab 08/19/21 [Rx Last Taken Unknown] cephalexin 500 mg PO Q12 #14 capsule 09/09/21 [Rx Last Taken Unknown] lorazepam 0.5 mg PO DAILY PRN PRN 09/09/21 [History Last Taken Unknown] ondansetron 4 mg PO Q8H PRN PRN #10 tab 09/09/21 [Rx Last Taken Unknown] Allergy/AdvReac Type Severity Reaction Status Date / Time linezolid [From Zyvox] Allergy Unknown Unknown Verified 09/09/21 10:47 vancomycin Allergy Unknown Unknown Verified 09/09/21 10:47 ibuprofen AdvReac Unknown Verified 09/09/21 10:47 tramadol AdvReac Unknown Verified 09/09/21 10:47 Family History Mother Diabetes Surgical History H/O mitral valve replacement History of back surgery Social History Smoking Status: Never smoker Tobacco: How many years used: 1 how long ago did patient quit smokin, 1ppd second hand exposure: Yes alcohol intake: current alcohol intake frequency: holidays/special occasions only substance use type: does not use what type of physical activity do you participate in: none ROS ROS ED Constitutional Constitutional ED: Reports chills; Denies fever(s) Eyes Eyes: Denies blurry vision or diplopia ENT ENT ED: Denies rhinorrhea or sore throat Cardiovascular Cardiovascular: Denies chest pain or palpitations Respiratory/Chest Respiratory/Chest: Reports dyspnea; Denies cough or dyspnea on exertion Gastrointestinal Gastrointestinal: Reports diarrhea and nausea; Denies abdominal pain Genitourinary Genitourinary ED: Denies dysuria or hematuria Musculoskeletal Musculoskeletal: Reports myalgias; Denies arthralgias, back pain or neck pain Integumentary Denies Abrasions or rash Neurologic Neurologic: Denies headache(s) or weakness Psychiatric Psychiatric: Reports anxiety EXAM Physical Exam Const Vital Signs: 09/09/21 10:47 09/09/21 11:07 09/09/21 13:30 Temperature 95.7 F L Temperature Source Temporal Pulse Rate 88 103 H Respiratory Rate 18 17 Respiratory Effort Normal Non-Labored Respiratory Depth Normal Respiratory Pattern Normal Blood Pressure 110/84 H 125/105 H Blood Pressure Mean 92 111 Pulse Ox 100 96 Oxygen Delivery Method Room Air Room Air Room Air 09/09/21 14:00 Temperature 98.3 F Temperature Source Temporal Pulse Rate 87 Respiratory Rate 16 Respiratory Effort Respiratory Depth Respiratory Pattern Blood Pressure 125/105 H Blood Pressure Mean 111 Pulse Ox 97 Oxygen Delivery Method Room Air Positive well nourished General Appearance ED: NAD; Negative for pallor HEENT Reports moist mucous membranes atraumatic Eyes PERRL and EOMs intact bilaterally Neck no lymphadenopathy and supple Resp normal respiratory effort and clear to auscultation bilaterally Cardio regular rate and regular rhythm GI non-tender and non-distended Palpation: soft Extremity normal to inspection General Extremety ED: Negative for edema or tenderness General Extremity: Negative for edema Neuro oriented x3, CN's II-XII intact bilaterally and no sensory deficits noted Sensorium / Orientation: alert Motor Exam: strength 5/5 throughout Psych Attitude: agitated Mood & Affect: anxious Skin General Skin Exam: Negative for jaundice or pallor Rashes: no rashes MDM MDM MDM Narrative Medical decision making narrative: Patient presenting with subjective dyspnea, body aches, chills, fatigue. Her examination is normal and her lungs are clear to auscultation. Her respiratory rate is 18. O2 sats are 100% on room air. She is weeks status post having COVID. She is not having any chest pain and she is not hypoxic so has a low clinical suspicion for PE. Due to the patient's chronic diarrhea and fatigue I will obtain blood work and imaging as well as urinalysis to evaluate the patient's symptoms. She is slightly hemoconcentrated with a hemoglobin of 15.9. Platelets are also hemoconcentrated 570. Patient was given IV fluids and Zofran. Her creatinine is noted to be slightly elevated at 1.13. In April of last year it was 0.75. EKG was performed which shows a sinus rhythm with a ventricular rate of 91 bpm without sign of ischemic change on my interpretation. There is artifact noted on EKG. Chest x-ray on my interface shows no acute cardiopulmonary process and the radiologist agree. Patient's alkaline phosphatase is 126, AST is 38 but otherwise her LFTs are unremarkable. This could likely be leftover from her recent COVID infection. High-sensitivity troponin is 7. Again the patient does not have any chest pain and has suggestive shortness of breath without any hypoxia or tachypnea. I do not believe this is ACS. I did check a urinalysis today and it is positive for UTI. Patient is given a dose of Rocephin. Even though she has no other leukocytosis I do not believe she is septic does not require admission. She will be given a prescription for Zofran and Keflex and is counseled to hydrate well. She is to follow-up with her primary care physician to ensure resolution or return for any new or worsening symptoms. Impression: 1. Generalized weakness 2. Dyspnea unknown cause 3. UTI 4. Dehydration 5. Leukocytosis Lab Data Attestation: I reviewed the patient's lab results. Labs: Laboratory Results - last 24 hr 09/09/21 09/09/21 09/09/21 11:40 11:40 14:14 WBC 18.8 H RBC 5.31 Hgb 15.9 H Hct 49.1 H MCV 92.5 MCH 29.9 MCHC 32.4 RDW Std Deviation 42.2 RDW Coeff of Raheel 12.3 Plt Count 570 H MPV 10.5 Immature Gran % (Auto) 4.400 H Neut % (Auto) 76.1 H Lymph % (Auto) 9.1 L Nobles % (Auto) 9.4 Eos % (Auto) 0.1 Baso % (Auto) 0.9 Absolute Neuts (auto) 14.3 H Absolute Lymphs (auto) 1.71 Nucleated RBC % 0 Differential Comment SCANNED Diff Path Review May foll Sodium 134 L Potassium 4.5 Chloride 97 L Carbon Dioxide 29.0 Anion Gap 8 BUN 23 H Creatinine 1.13 H Estim Creat Clear Calc 50.20 Est GFR (MDRD) Af Amer 63 Est GFR (MDRD) Non-Af 52 L BUN/Creatinine Ratio 20.4 H Glucose 99 Calcium 9.5 Total Bilirubin 0.60 AST 38 H ALT 37 Alkaline Phosphatase 126 H Troponin I High Sens 7 Total Protein 8.7 H Albumin 3.1 L Globulin 5.6 H Albumin/Globulin Ratio 0.6 L Urine Color Yellow Urine Clarity Sl. Cloudy Urine pH 7.0 Ur Specific [place] 1.005 Urine Protein 30 H Urine Glucose (UA) Normal Urine Ketones Negative Urine Occult Blood 25 H Urine Nitrite Positive H Urine Bilirubin Negative Urine Urobilinogen 1 H Ur Leukocyte Esterase 500 H Urine RBC 5-10 SEEN Urine WBC >100 SEEN Ur Squamous Epith Cells 0 SEEN Urine Bacteria 4+ Urine Mucus 0 SEEN Radiography Diagnostic Testing: Clinical Impression(s) from Imaging Studies Chest X-Ray 09/09/21 11:45 IMPRESSION: Mild increased markings in the left upper lobe suggestive of either linear atelectasis and/or scarring. Electronically Signed: Francisco Campos MD at 12:05 EST , Service support , Discharge Plan Triage Chief Complaint: Shortness of Breath ED Provider: Ruddy An Dx/Rx/DC Orders Instructions: ED CYSTITIS Female Adult Prescriptions: New cephalexin 500 mg capsule 500 mg PO Q12 Qty: 14 RF: 0 ondansetron 4 mg tablet,disintegrating 4 mg PO Q8H PRN PRN (Reason: Nausea) Qty: 10 RF: 0 No Action albuterol sulfate 90 mcg/actuation HFA aerosol inhaler See Rx Instructions .Route PRN PRN (Reason: Sob &/Or Wheezing) Qty: 8.5 RF: 1 aspirin [Adult Aspirin Regimen] 81 mg tablet,delayed release (DR/EC) 81 mg PO QDAY Qty: 90 RF: 3 metoprolol tartrate 25 mg tablet 50 mg PO DAILY Qty: 270 RF: 1 omeprazole 40 mg capsule,delayed release(DR/EC) 40 mg PO QDAY Qty: 90 RF: 3 tizanidine 4 mg tablet 4 mg PO BID PRN (Reason: muscle spasticity) 90 Days Qty: 180 RF: 0 fluticasone propionate 50 mcg/actuation spray,suspension 2 spray INTRANASAL PRN PRN (Reason: Nasal Congestion) Qty: 16 RF: 2 Symbicort 160-4.5 mcg/actuation HFA aerosol inhaler 2 puff INHALATION BID Qty: 1 RF: 6 lorazepam 0.5 mg tablet 0.5 mg PO DAILY PRN PRN (Reason: Anxiety) RF: 0 gabapentin 300 mg capsule 300 mg PO BID Qty: 180 RF: 1 alendronate 35 mg tablet 35 mg PO QWEEK Qty: 20 RF: 1 allopurinol 100 mg tablet 100 mg PO DAILY Qty: 90 RF: 0 Primary Care Provider: Naveen Chen Referrals: Naveen Chen MD [Primary Care Provider] - Disposition Disposition: Home, Self Care
--- NOTE | 2021-09-09 11:17 | EKG12_ITS ---
Test Reason : SOB Blood Pressure : / mmHG Vent. Rate : 091 BPM Atrial Rate : 091 BPM P-R Int : 170 ms QRS Dur : 076 ms QT Int : 368 ms P-R-T Axes : 034 -50 063 degrees QTc Int : 452 ms Normal sinus rhythm Left axis deviation Inferior infarct , age undetermined Anterior infarct , age undetermined ST & T wave abnormality, consider lateral ischemia Abnormal ECG Confirmed by JARED DELACRUZ, SAIMA ([id number]), school photograph editor JOSE A HOBSON ([id number]) on 09/10/2021 1:38:14 PM Referred By: YVONNE Confirmed By:KAMAR COLEMAN MD
--- NOTE | 2021-09-09 11:23 | NURSING ---
NO OLD EKGS
--- NOTE | 2021-09-09 11:45 | RAD_ITS ---
STUDY: X-RAY CHEST REASON FOR EXAM: Female, 61 years old. Cough TECHNIQUE: Single AP portable view of the chest. COMPARISON: None. FINDINGS: Minimal increased markings in the left upper lobe suggestive of either linear atelectasis and/or scarring. There is no demonstrated pleural abnormality. Sternal cerclage wires are present from a prior sternotomy. Normal mediastinum and destini. Normal visualized pulmonary arteries. There is atherosclerotic tortuosity of the aortic arch and descending thoracic aorta. There are diffuse degenerative changes of the visualized thoracic spine. There is degenerative osteoarthritis of the bilateral shoulders. There is no demonstrated abnormality of the visualized soft tissue structures of the upper abdomen. RAD/Chest 1 View (Portable) IMPRESSION: Mild increased markings in the left upper lobe suggestive of either linear atelectasis and/or scarring. Electronically Signed: Francisco Campos MD at 12:05 EST , Service support ,
[2021-09-09 11:51] LABS: Absolute Lymphocyte Count 1.71 X10^3/uL (0.83-4.51); Absolute Neutrophil Count 14.3 X10^3/uL (2.0-7.7); Basophil# 0.17 X10^3/uL; Basophil% 0.9 % (0-1); Eosinophil# 0.02 X10^3/uL; Eosinophils% 0.1 % (0-5); Hematocrit 49.1 % (37-47); Hemoglobin 15.9 g/dL (12.0-15.0); Lymphocyte # 1.71 X10^3/ul (0.83-4.51); Lymphocyte % 9.1 % (19-41); Mean Corp Hgb Conc 32.4 g/dL (32-36); Mean Corpuscular Hgb 29.9 pg (27.0-32.0); Mean Corpuscular Volume 92.5 fL (81-99); Mean Platelet Vol. 10.5 fl (6.2-12.0); Monocyte# 1.77 X10^3/uL; Monocyte% 9.4 % (0-10); NRBC Flagged by Analyzer 0 % (0-5); Neutrophil # 14.26 X10^3/uL (2.7-7.7); Neutrophil % 76.1 % (47-70); POSITIVE DIFFERENTIAL YES; Platelet Count 570 K/mm3 (150-450); RBC Distribution Width CV 12.3 % (11.6-14.6); RBC Distribution Width SD 42.2 fl (35.1-43.9); Red Blood Count 5.31 M/mm3 (4.2-5.4); White Blood Count 18.8 K/mm3 (4.4-11.0)
[2021-09-09 11:52] LABS: Differential Indicated SCAN CRITERIA MET
[2021-09-09 12:21] LABS: Differential Comment SCANNED
[2021-09-09 12:28] LABS: ALB/GLOB Ratio 0.6 RATIO (0.9-2.4); AST(SGOT) 38 U/L (15-37); Alanine Aminotransfer ALT/SGPT 37 U/L (13-56); Albumin, Serum 3.1 g/dL (3.2-5.0); Alkaline Phosphatase 126 U/L (45-117); Anion Gap 8 (5-15); BUN 23 mg/dL (7-18); BUN/Creat Ratio 20.4 RATIO (10-20); Calcium,Total 9.5 mg/dL (8.5-10.1); Chloride 97 mmol/L (98-107); Creatinine, Serum 1.13 mg/dL (0.55-1.02); EST Glomerular Filtration Rate 52 mL/min (>60); Est Glom Filt Rate - Afr Amer 63 mL/min (>60); Globulin 5.6 g/dL (2.2-4.2); Glucose 99 mg/dL (74-106); Potassium 4.5 mmol/L (3.5-5.1); Protein, Total 8.7 g/dL (6.4-8.2); Sodium Level 134 mmol/L (136-145); Troponin-I HS 7 pg/mL (3.0-54.0)
[2021-09-09 13:30] VITALS: BP 125/105; PULSE 103; RESP 17; O2SAT 96
[2021-09-09 14:00] VITALS: BP 125/105; PULSE 87; RESP 16; TEMP 36.8; O2SAT 97
--- NOTE | 2021-09-09 14:03 | ED.RN ---
risk of sepsis discussed with md. no source at this time. will discuses with patient about straight cath for ua. yany cortez rn [id number]
[2021-09-09 14:18] LABS: Mucous, Urine 0 SEEN /hpf (<or=2+); Squamous Epithelial Cells - UA 0 SEEN /hpf (5-10)
[2021-09-09 14:28] LABS: Color, Urine Yellow (Yellow); Glucose, Dipstick Normal (Normal); Ketone-Dipstick Negative (Negative); Leukocyte Esterase-Dipstick 500 /ul (Negative); Nitrite-Dipstick Positive (Negative); Occult Blood-Urine 25 /ul (Negative); Protein-Dipstick 30 mg/dl (Negative); Specific Gravity, Urine 1.005 (1.002-1.030); Urine Bilirubin Dipstick Negative (Negative); Urine Clarity Sl. Cloudy (Clear); Urine Urobilinogen 1 mg/dl (Normal)
[2021-09-09 15:06] LABS: Bacteria 4+ /hpf (None Seen); Red Blood Cells-Urine 5-10 SEEN /hpf (0-5); White Blood Cells >100 SEEN /hpf (0-5)
[2021-09-09] MEDS: Ceftriaxone 1 GM/50 ML BAG IV (15:35)
[2021-09-09 15:44] VITALS: BP 110/99; PULSE 90; PULSE 93; RESP 20; RESP 21; TEMP 36.8; O2SAT 98
--- NOTE | 2021-09-09 16:40 | ED.RN ---
discharge packet printed, but no order placed. verbal order entered for demarco/galen cortez rn [id number]
[2021-09-09 16:47] VITALS: BP 118/91; PULSE 92; RESP 18; O2SAT 100
[2021-09-10 13:03] LABS: Pathologist Review Reviewed
== END 2021-09-09 16:48 | disposition home or self-care (01) ==
PROVIDERS: Emergency Provider Student in an Organized Health Care Education/Training Program; PCP Internal Medicine; Visit Provider Student in an Organized Health Care Education/Training Program
DX: N39.0 Urinary tract infection, site not specified (principal); J44.9 Chronic obstructive pulmonary disease, unspecified; D72.829 Elevated white blood cell count, unspecified; E86.0 Dehydration; I10 Essential (primary) hypertension; M19.90 Unspecified osteoarthritis, unspecified site; Z79.82 Long term (current) use of aspirin; Z79.899 Other long term (current) drug therapy; Z86.16 Personal history of COVID-19; Z87.891 Personal history of nicotine dependence
CPT/HCPCS: 71045; 80053; 81001; 84484; 85025; 87077; 87086; 87088; 87186; 93005; 96365; 99285; J7040; J7050; P9612; A4216

== ENCOUNTER → 2022-01-21 | Outpatient (CLI) | payer MEDICARE, MEDICAID, SELFPAY ==
[2022-01-21 15:03] LABS: Absolute Lymphocyte Count 1.21 X10^3/uL (0.83-4.51); Absolute Neutrophil Count 6.1 X10^3/uL (2.0-7.7); Basophil# 0.11 X10^3/uL; Basophil% 1.3 % (0-1); Eosinophil# 0.37 X10^3/uL; Eosinophils% 4.3 % (0-5); Hematocrit 41.9 % (37-47); Hemoglobin 14.4 g/dL (12.0-15.0); Lymphocyte # 1.21 X10^3/ul (0.83-4.51); Mean Corp Hgb Conc 34.4 g/dL (32-36); Mean Corpuscular Hgb 31.2 pg (27.0-32.0); Mean Corpuscular Volume 90.9 fL (81-99); Mean Platelet Vol. 9.8 fl (6.2-12.0); Monocyte# 0.78 X10^3/uL; NRBC Flagged by Analyzer 0 % (0-5); Neutrophil # 6.13 X10^3/uL (2.7-7.7); Neutrophil % 71.1 % (47-70); Platelet Count 200 K/mm3 (150-450); RBC Distribution Width CV 12.2 % (11.6-14.6); RBC Distribution Width SD 40.6 fl (35.1-43.9); Red Blood Count 4.61 M/mm3 (4.2-5.4); White Blood Count 8.6 K/mm3 (4.4-11.0)
[2022-01-21 15:26] LABS: Vitamin D,25 Hydroxy 45.6 ng/mL
[2022-01-21 15:42] LABS: ALB/GLOB Ratio 1.1 RATIO (0.9-2.4); AST(SGOT) 50 U/L (15-37); Alanine Aminotransfer ALT/SGPT 35 U/L (13-56); Albumin, Serum 3.9 g/dL (3.2-5.0); Alkaline Phosphatase 69 U/L (45-117); Anion Gap 13 (5-15); BUN 13 mg/dL (7-18); BUN/Creat Ratio 17.6 RATIO (10-20); Calcium,Total 9.2 mg/dL (8.5-10.1); Chloride 101 mmol/L (98-107); Cholesterol 241 mg/dL (200); Creatinine, Serum 0.74 mg/dL (0.55-1.02); EST Glomerular Filtration Rate 85 mL/min (>60); Est Glom Filt Rate - Afr Amer 102 mL/min (>60); Globulin 3.6 g/dL (2.2-4.2); Glucose 84 mg/dL (74-106); High Density Lipoprotein 79 mg/dL; Potassium 3.9 mmol/L (3.5-5.1); Protein, Total 7.5 g/dL (6.4-8.2); Sodium Level 135 mmol/L (136-145); Thyroid Stim Hormone (TSH) 0.37 uIU/mL (0.358-3.74); Triglycerides 111 mg/dL; Very Low Density Lipoprotein 22 mg/dL (5-40)
== END | disposition home or self-care (01) ==
LOC: BIMLAB 13:27
PROVIDERS: PCP Internal Medicine; Referring Provider Nurse Practitioner Family; Visit Provider Nurse Practitioner Family
DX: Z00.00 Encounter for general adult medical examination without abnormal findings (principal); I10 Essential (primary) hypertension; E56.9 Vitamin deficiency, unspecified; M85.80 Other specified disorders of bone density and structure, unspecified site; Z95.2 Presence of prosthetic heart valve
CPT/HCPCS: 36415; 80053; 80061; 82306; 84443; 85025

== ENCOUNTER → 2022-07-20 | Outpatient (CLI) | payer MEDICARE, SELFPAY ==
--- NOTE | 2022-07-20 13:48 | BI_ITS ---
MAMMOGRAPHY - BILATERAL SCREENING REASON FOR EXAM: Female, 62 years old. Routine annual screening examination. PERTINENT HISTORY: Non-contributory. TECHNIQUE: Digital bilateral breast mami (3D mammographic acquisition) in the CC and MLO projections. 2-D mediolateral oblique (MLO) and craniocaudad (CC) views of both breasts were obtained. CAD: Full Field Digital Mammography with Computer Added Detection was performed. COMPARISON: 02/26/2021 FINDINGS: Breast Composition: The breasts are heterogeneously dense, which may obscure small masses. There are no dominant masses or suspicious calcifications. Stable scattered bilateral benign-appearing breast calcifications. No other significant abnormalities are identified. There has been no significant change since the prior study. BI/SCRN MAMM (CAD)W/MAMI BILAT IMPRESSION: Stable bilateral screening mammogram. Yearly follow-up mammogram recommended. (A) ASSESSMENT CATEGORY: BIRADS Category 2: Benign. A letter regarding these results will be sent to the patient by the facility within 30 days. Approximately 10% of breast cancers are not detected by mammography. A normal mammogram should not delay biopsy of a clinically suspicious abnormality. Electronically Signed: Willy Pinedo, at 10:33 EST ,
== END | disposition home or self-care (01) ==
LOC: OPBI 13:47
PROVIDERS: PCP Internal Medicine; Referring Provider Nurse Practitioner Family; Visit Provider Nurse Practitioner Family
DX: Z12.31 Encounter for screening mammogram for malignant neoplasm of breast (principal)
CPT/HCPCS: 77063; 77067

== ENCOUNTER → 2022-09-09 | Outpatient (CLI) | payer MEDICARE, SELFPAY ==
[2022-09-09 15:15] LABS: Absolute Lymphocyte Count 0.88 X10^3/uL (0.83-4.51); Basophil# 0.05 X10^3/uL; Basophil% 0.6 % (0-1); Eosinophil# 0.26 X10^3/uL; Eosinophils% 3.3 % (0-5); Hematocrit 44.4 % (37-47); Hemoglobin 14.6 g/dL (12.0-15.0); Lymphocyte # 0.88 X10^3/ul (0.83-4.51); Lymphocyte % 11.2 % (19-41); Mean Corp Hgb Conc 32.9 g/dL (32-36); Mean Corpuscular Hgb 31.9 pg (27.0-32.0); Mean Corpuscular Volume 96.9 fL (81-99); Mean Platelet Vol. 9.6 fl (6.2-12.0); Monocyte# 0.65 X10^3/uL; Monocyte% 8.3 % (0-10); NRBC Flagged by Analyzer 0 % (0-5); Neutrophil # 5.96 X10^3/uL (2.7-7.7); Neutrophil % 76.1 % (47-70); Platelet Count 191 K/mm3 (150-450); RBC Distribution Width CV 12.3 % (11.6-14.6); RBC Distribution Width SD 44.1 fl (35.1-43.9); Red Blood Count 4.58 M/mm3 (4.2-5.4); White Blood Count 7.8 K/mm3 (4.4-11.0)
[2022-09-09 16:14] LABS: Vitamin B12 428 pg/mL (211-911)
[2022-09-09 16:23] LABS: ALB/GLOB Ratio 1.2 RATIO (0.9-2.4); AST(SGOT) 22 U/L (15-37); Alanine Aminotransfer ALT/SGPT 24 U/L (13-56); Albumin, Serum 4.3 g/dL (3.2-5.0); Alkaline Phosphatase 69 U/L (45-117); Anion Gap 7 (5-15); BUN 9 mg/dL (7-18); BUN/Creat Ratio 10.5 RATIO (10-20); Calcium,Total 9.3 mg/dL (8.5-10.1); Chloride 103 mmol/L (98-107); Creatinine, Serum 0.86 mg/dL (0.55-1.02); EST Glomerular Filtration Rate 71 mL/min (>60); Est Glom Filt Rate - Afr Amer 86 mL/min (>60); Globulin 3.5 g/dL (2.2-4.2); Glucose 139 mg/dL (74-106); Potassium 3.8 mmol/L (3.5-5.1); Protein, Total 7.8 g/dL (6.4-8.2); Sodium Level 136 mmol/L (136-145); T4 Free Direct 0.86 ng/dL (0.76-1.46); Thyroid Stim Hormone (TSH) 0.46 uIU/mL (0.358-3.74)
== END | disposition home or self-care (01) ==
LOC: BIMLAB 14:17
PROVIDERS: PCP Internal Medicine; Referring Provider Internal Medicine; Visit Provider Internal Medicine
DX: G62.9 Polyneuropathy, unspecified (principal); F41.9 Anxiety disorder, unspecified; I10 Essential (primary) hypertension
CPT/HCPCS: 36415; 80053; 82607; 84439; 84443; 85025

== ENCOUNTER 2023-04-28 21:06 | Emergency (ER) | payer MEDICARE, MEDICAID, SELFPAY ==
[2023-04-28 21:07] VITALS: BP 109/75; PULSE 91; RESP 16; TEMP 37.1; O2SAT 99
[2023-04-28 21:59] VITALS: BMI 15.3
--- NOTE | 2023-04-28 22:57 | EKG12_ITS ---
Test Reason : SOB Blood Pressure : / mmHG Vent. Rate : 083 BPM Atrial Rate : 083 BPM P-R Int : 114 ms QRS Dur : 080 ms QT Int : 402 ms P-R-T Axes : -13 -47 072 degrees QTc Int : 472 ms Normal sinus rhythm Left axis deviation Septal infarct (cited on or before 09-SEP-2021) Abnormal ECG Confirmed by JULI SANTANA ([id number]), research editor CARMITA GAMA ([id number]) on 05/12/2023 11:30:42 AM Referred By: Confirmed By:JLUI SANTANA
--- NOTE | 2023-04-28 22:58 | EDS_ITS ---
HPI History of Present Illness Chief Complaint: General Illness Informant: patient Narrative Narrative: Patient presents for multiple symptoms. She states she has had an uncomfortable burning and at times itchy rash in her genital area and proximal inner thighs for the past month or more. She was seen at a different ER states that she was given nystatin but it was a small tube, she did it for a short period of time and she thinks maybe it helped but it is hard to get a clear answer from her, but she ran out and states that she went back and was given a different prescription but she does not know what it was, and she has not seen anybody else until she came here. Today all day, she states she has had stiffness and numbness in her legs, trouble moving them due to this. Feels like muscle spasms. Less in her arms. Occurring bilaterally symmetrically. She admits to feeling very anxious and having a lot of anxiety problems. She denies any potential exposure to STDs or sexual activity in the last year. She denies vaginal discharge, asked on several different occasions, again difficult to get a straight answer from her. She told triage that she was feeling little short of breath, but I had asked her if she was feeling short of breath in order to discern it, she did not disclose this is one of her numerous symptoms, she states she feels a little nauseated. She denies any chest discomfort. [facility] Medical History Anemia Asthma Carpal tunnel syndrome Cervical radiculopathy COPD (chronic obstructive pulmonary disease) Encounter for preventative adult health care examination Flu vaccine need Gout hx of right elbow sugrery Hypertension Lumbar radiculopathy Muscle spasm Neuropathy Non-rheumatic mitral regurgitation Osteoarthritis Peptic ulcer disease Suspected COVID-19 virus infection Tinnitus Ulcerative colitis URI (upper respiratory infection) Vitamin deficiency Home Medications lorazepam 0.5 mg tablet 0.5 mg PO DAILY PRN PRN Anxiety 09/09/21 [History Last Taken Unknown] aspirin 81 mg tablet,delayed release (Adult Aspirin Regimen) 81 mg PO QDAY #90 tabs 02/02/22 [Rx Last Taken Unknown] albuterol sulfate 90 mcg/actuation aerosol inhaler See Rx Instructions .Route .COMPLEX #8.5 ea 04/07/22 [Rx Last Taken Unknown] allopurinol 100 mg tablet 100 mg PO DAILY #90 tabs 04/21/22 [Rx Last Taken Unknown] metoprolol tartrate 25 mg tablet 50 mg (2 x 25 mg) PO DAILY #270 tabs 07/26/22 [Rx Last Taken Unknown] fluticasone propionate 50 mcg/actuation nasal spray,suspension 2 spray intranasal PRN PRN Nasal Congestion #16 grams 08/31/22 [Rx Last Taken Unknown] alendronate 35 mg tablet 35 mg PO QWEEK #20 tabs 10/21/22 [Rx Last Taken Unknown] omeprazole 40 mg capsule,delayed release See Rx Instructions .Route .COMPLEX #90 caps 01/31/23 [Rx Last Taken Unknown] gabapentin 300 mg capsule 300 mg PO BID #180 caps 02/22/23 [Rx Last Taken Unknown] budesonide-formoterol HFA 160 mcg-4.5 mcg/actuation aerosol inhaler (Symbicort) See Rx Instructions .Route .COMPLEX #30.6 ea 03/07/23 [Rx Last Taken Unknown] tizanidine 4 mg tablet See Rx Instructions .Route .COMPLEX #180 tabs 03/07/23 [Rx Last Taken Unknown] halobetasol propionate 0.05 % topical cream See Rx Instructions .Route .COMPLEX #45 grams 03/28/23 [Rx Last Taken Unknown] fluconazole 150 mg tablet 150 mg PO DAILY #1 TAB 04/29/23 [Rx Last Taken Unknown] Allergy/AdvReac Type Severity Reaction Status Date / Time linezolid [From Zyvox] Allergy Unknown Unknown Verified 04/28/23 21:09 vancomycin Allergy Unknown Unknown Verified 04/28/23 21:09 ibuprofen AdvReac Unknown Verified 04/28/23 21:09 tramadol AdvReac Unknown Verified 04/28/23 21:09 Family History Mother Diabetes Surgical History H/O mitral valve replacement History of back surgery Social History Smoking Status: Never smoker Tobacco: How many years used: 1 how long ago did patient quit smokin, 1ppd second hand exposure: Yes alcohol intake: current alcohol intake frequency: holidays/special occasions only substance use type: does not use what type of physical activity do you participate in: none ROS ROS ED Constitutional Constitutional ED: Denies chills or fever(s) Eyes Eyes: Denies change in vision or diplopia ENT ENT ED: Denies rhinorrhea or sore throat Cardiovascular Cardiovascular: Denies chest pain or palpitations Respiratory/Chest Respiratory/Chest: Reports cough, dyspnea and sputum Gastrointestinal Gastrointestinal: Reports nausea; Denies abdominal pain, diarrhea or vomiting Genitourinary Genitourinary ED: Denies dysuria or hematuria Musculoskeletal Musculoskeletal: Denies back pain or neck pain Integumentary Reports rash; Denies abscess Neurologic Neurologic: Denies headache(s), paresthesias or weakness Psychiatric Psychiatric: Reports anxiety; Denies suicidal ideation or suicidal thoughts EXAM Physical Exam Const Vital Signs: 04/28/23 21:07 Temperature 98.7 F Temperature Source Temporal Pulse Rate 91 Respiratory Rate 16 Blood Pressure 109/75 Blood Pressure Mean 86 Pulse Ox 99 Positive well nourished and well developed General Appearance ED: well developed and NAD HEENT Reports moist mucous membranes normocephalic and atraumatic Eyes PERRL and EOMs intact bilaterally Neck full ROM and supple Chest Wall inspection of chest normal and palpation of chest normal Resp normal respiratory effort and clear to auscultation bilaterally Cardio regular rate, regular rhythm and no murmurs Rate: Negative for tachycardic GI non-tender and non-distended Auscultation: normoactive bowel sounds Palpation: soft Narrative: External genitourinary rash, it is nonraised erythematous blanching macular, but coalescent and full blanching erythema on labia. No evidence of a vaginal discharge externally. Rash progresses to the mons pubis and proximal inner thighs bilaterally. The rash is minimally tender except on the labia later it is more so. Back/Spine no CVA tenderness General Back: other FROM Extremity normal to inspection Extremity Narrative: Several nontender ecchymoses of variety of ages both lower legs General Extremety ED: Negative for edema, pulses abnormal or tenderness General Extremity: Negative for edema or pulses abnormal Neuro oriented x3, CN's II-XII intact bilaterally and no sensory deficits noted Sensorium / Orientation: awake and alert Motor Exam: strength 5/5 throughout Psych Psych Narrative: Extremely anxious and fidgety with psychomotor agitation Skin no wounds Skin Narrative: Rash genitourinary area no other rashes see above for details MDM MDM MDM Narrative Medical decision making narrative: Other than a nonspecifically slightly elevated BNP and mild nonspecific leukocytosis, the rest of the patient's labs are unremarkable. 1 view chest x- ray on my interpretation negative for any acute abnormality or pneumonia, radiology in agreement. Her EKG is unremarkable and troponin is normal. Given all of this, I think the rash looks more like candidiasis, and this helps to confirm my suspicion for her dyspnea being related to her anxiety which seems significant. I cross checked all of her medications with fluconazole, there are no significant interactions, so I am going to give her a prescription for a fluconazole 150 mg and have her follow-up with her doctor and/or gynecology as an outpatient. Lab Data Attestation: I reviewed the patient's lab results. Labs: Laboratory Results - last 24 hr 04/28/23 23:10 WBC 13.1 H RBC 4.79 Hgb 15.3 H Hct 45.1 MCV 94.2 MCH 31.9 MCHC 33.9 RDW Std Deviation 42.4 RDW Coeff of Raheel 12.1 Plt Count 214 MPV 9.6 Immature Gran % (Auto) 0.500 Neut % (Auto) 74.5 H Lymph % (Auto) 9.6 L Carbon % (Auto) 11.7 H Eos % (Auto) 3.2 Baso % (Auto) 0.5 Absolute Neuts (auto) 9.7 H Absolute Lymphs (auto) 1.25 Nucleated RBC % 0 Differential Comment SCANNED Diff Path Review December foll PT 12.4 INR 0.9 APTT 25.7 Sodium 131 L Potassium 4.4 Chloride 96 L Carbon Dioxide 25.0 Anion Gap 10 BUN 10 Creatinine 0.93 Estim Creat Clear Calc 42.74 Est GFR (MDRD) Af Amer 78 Est GFR (MDRD) Non-Af 65 BUN/Creatinine Ratio 10.8 Glucose 82 Calcium 10.1 Troponin I High Sens 6 B-Natriuretic Peptide 336.8 H Radiography Diagnostic Testing: Clinical Impression(s) from Imaging Studies Chest X-Ray 04/28/23 23:20 IMPRESSION: No acute findings in the chest. Electronically Signed: Romero Smith MD at 23:39 EDT , Rhythm Strip Rhythm Strip: Sinus Rhythm Rate: 85 Ectopy: None EKG Initial EKG: Attestation: I personally reviewed and interpreted this EKG as follows: Interpretation: Sinus Rhythm, No Acute Injury Pattern and LAFB Discharge Plan Triage Chief Complaint: General Illness ED Provider: Ricki Peña Dx/Rx/DC Orders Clinical Impression: Candidiasis of female genitalia, Anxiety Instructions: ED Erendira Skin Infection (Adult) Prescriptions: New fluconazole 150 mg tablet 150 mg PO DAILY Qty: 1 0RF No Action lorazepam 0.5 mg tablet 0.5 mg PO DAILY PRN PRN (Reason: Anxiety) aspirin [Adult Aspirin Regimen] 81 mg tablet,delayed release (DR/EC) 81 mg PO QDAY Qty: 90 3RF albuterol sulfate 90 mcg/actuation HFA aerosol inhaler See Rx Instructions .ROUTE .COMPLEX Qty: 8.5 1RF Dose Instruction: INHALE 2 PUFFS EVERY 6 HOURS NEEDED FOR SHORTNESS OF BREATH/WHEEZING Rx Instructions: INHALE 2 PUFFS EVERY 6 HOURS NEEDED FOR SHORTNESS OF BREATH/WHEEZING allopurinol 100 mg tablet 100 mg PO DAILY Qty: 90 2RF Rx Instructions: TAKE 1 TABLET BY MOUTH EVERY DAY metoprolol tartrate 25 mg tablet 50 mg PO DAILY Qty: 270 1RF Rx Instructions: TAKE 2 TABLET BY MOUTH IN THE MORNING AND 1 TABLET AT NIGHT. fluticasone propionate 50 mcg/actuation spray,suspension 2 spray INTRANASAL PRN PRN (Reason: Nasal Congestion) Qty: 16 2RF alendronate 35 mg tablet 35 mg PO QWEEK Qty: 20 1RF omeprazole 40 mg capsule,delayed release(DR/EC) See Rx Instructions .ROUTE .COMPLEX Qty: 90 3RF Dose Instruction: TAKE 1 CAPSULE BY MOUTH EVERY DAY Rx Instructions: TAKE 1 CAPSULE BY MOUTH EVERY DAY gabapentin 300 mg capsule 300 mg PO BID Qty: 180 1RF Rx Instructions: TAKE 1 CAPSULE BY MOUTH TWICE DAILY tizanidine 4 mg tablet See Rx Instructions .ROUTE .COMPLEX Qty: 180 0RF Dose Instruction: 1 TABLET ORALLY TWICE A DAY NEEDED FOR MUSCLE SPASTICITY FOR 3 MONTHS Rx Instructions: 1 TABLET ORALLY TWICE A DAY NEEDED FOR MUSCLE SPASTICITY FOR 3 MONTHS Symbicort 160-4.5 mcg/actuation HFA aerosol inhaler See Rx Instructions .ROUTE .COMPLEX Qty: 30.6 2RF Dose Instruction: INHALE 2 PUFFS BY MOUTH TWICE A DAY Rx Instructions: INHALE 2 PUFFS BY MOUTH TWICE A DAY halobetasol propionate 0.05 % cream See Rx Instructions .ROUTE .COMPLEX Qty: 45 1RF Dose Instruction: APPLY TOPICALLY EVERY DAY NEEDED FOR RASH Rx Instructions: APPLY TOPICALLY EVERY DAY NEEDED FOR RASH Primary Care Provider: Naveen Chen Referrals: Naveen Chen MD [Primary Care Provider] - 1 Week if not improving Disposition Disposition: Home, Self Care
--- NOTE | 2023-04-28 23:20 | RAD_ITS ---
EXAM: XR CHEST, 1 VIEW CLINICAL INDICATION: sob TECHNIQUE: Frontal view of the chest. COMPARISON: 09/09/2021 FINDINGS: LUNGS AND PLEURAL SPACES: Unremarkable. No consolidation or edema. No pneumothorax. No effusion. HEART: Unremarkable. Cardiac silhouette not enlarged. MEDIASTINUM: Central airways and mediastinal contour are unremarkable. BONES/JOINTS: Median sternotomy wires are in place. There is an atrial appendage clip. SOFT TISSUES: Unremarkable. RAD/Chest 1 View (Portable) IMPRESSION: No acute findings in the chest. Electronically Signed: Romero Smith MD at 23:39 EDT ,
[2023-04-28 23:23] LABS: Absolute Lymphocyte Count 1.25 X10^3/uL (0.83-4.51); Absolute Neutrophil Count 9.7 X10^3/uL (2.0-7.7); Basophil# 0.06 X10^3/uL; Basophil% 0.5 % (0-1); Eosinophil# 0.42 X10^3/uL; Eosinophils% 3.2 % (0-5); Hematocrit 45.1 % (37-47); Hemoglobin 15.3 g/dL (12.0-15.0); Lymphocyte # 1.25 X10^3/ul (0.83-4.51); Lymphocyte % 9.6 % (19-41); Mean Corp Hgb Conc 33.9 g/dL (32-36); Mean Corpuscular Hgb 31.9 pg (27.0-32.0); Mean Corpuscular Volume 94.2 fL (81-99); Mean Platelet Vol. 9.6 fl (6.2-12.0); Monocyte# 1.53 X10^3/uL; Monocyte% 11.7 % (0-10); NRBC Flagged by Analyzer 0 % (0-5); Neutrophil # 9.72 X10^3/uL (2.7-7.7); Neutrophil % 74.5 % (47-70); POSITIVE DIFFERENTIAL YES; Platelet Count 214 K/mm3 (150-450); RBC Distribution Width CV 12.1 % (11.6-14.6); RBC Distribution Width SD 42.4 fl (35.1-43.9); Red Blood Count 4.79 M/mm3 (4.2-5.4); White Blood Count 13.1 K/mm3 (4.4-11.0)
[2023-04-28 23:31] LABS: Differential Indicated SCAN CRITERIA MET
[2023-04-28 23:33] LABS: International Normalized Ratio 0.9; Prothrombin Time (Protime)PT. 12.4 SECONDS (11.7-14.9)
[2023-04-28 23:34] LABS: Partial Thromboplast Time 25.7 Seconds (24.1-36.2)
[2023-04-28 23:41] LABS: BNP,B-Type NATRIURETIC PEPTIDE 336.8 pg/mL (0-100)
[2023-04-28 23:48] LABS: Anion Gap 10 (5-15); BUN 10 mg/dL (7-18); BUN/Creat Ratio 10.8 RATIO (10-20); Calcium,Total 10.1 mg/dL (8.5-10.1); Chloride 96 mmol/L (98-107); Creatinine, Serum 0.93 mg/dL (0.55-1.02); EST Glomerular Filtration Rate 65 mL/min (>60); Est Glom Filt Rate - Afr Amer 78 mL/min (>60); Estimated Creatinine Clearance 42.74 ml/min; Glucose 82 mg/dL (74-106); Potassium 4.4 mmol/L (3.5-5.1); Sodium Level 131 mmol/L (136-145); Troponin-I HS 6 pg/mL (3.0-54.0)
[2023-04-28 23:50] LABS: Differential Comment SCANNED
[2023-04-29 00:24] VITALS: PULSE 78; RESP 16; O2SAT 97
[2023-05-03 08:58] LABS: Pathologist Review Reviewed
== END 2023-04-29 00:24 | disposition home or self-care (01) ==
PROVIDERS: Emergency Provider Emergency Medicine; PCP Internal Medicine; Visit Provider Emergency Medicine
DX: B37.9 Candidiasis, unspecified (principal); J44.9 Chronic obstructive pulmonary disease, unspecified; F41.9 Anxiety disorder, unspecified; I10 Essential (primary) hypertension; R06.02 Shortness of breath; Z79.82 Long term (current) use of aspirin; Z79.899 Other long term (current) drug therapy; Z87.891 Personal history of nicotine dependence
CPT/HCPCS: 71045; 80048; 83880; 84484; 85025; 85610; 85730; 93005; 99283; J7030; A4216

== ENCOUNTER → 2024-01-04 | Outpatient (CLI) | payer MEDICARE, MEDICAID, SELFPAY ==
[2024-01-04 15:10] LABS: Absolute Lymphocyte Count 2.13 X10^3/uL (0.83-4.51); Absolute Neutrophil Count 4.6 X10^3/uL (2.0-7.7); Basophil# 0.11 X10^3/uL; Basophil% 1.4 % (0-1); Eosinophil# 0.33 X10^3/uL; Eosinophils% 4.1 % (0-5); Hematocrit 42.5 % (37-47); Hemoglobin 13.9 g/dL (12.0-15.0); Lymphocyte # 2.13 X10^3/ul (0.83-4.51); Lymphocyte % 26.2 % (19-41); Mean Corp Hgb Conc 32.7 g/dL (32-36); Mean Corpuscular Hgb 31.9 pg (27.0-32.0); Mean Corpuscular Volume 97.5 fL (81-99); Mean Platelet Vol. 9.6 fl (6.2-12.0); Monocyte# 0.88 X10^3/uL; Monocyte% 10.8 % (0-10); NRBC Flagged by Analyzer 0 % (0-5); Neutrophil # 4.64 X10^3/uL (2.7-7.7); Neutrophil % 57.1 % (47-70); Platelet Count 257 K/mm3 (150-450); RBC Distribution Width CV 11.9 % (11.6-14.6); RBC Distribution Width SD 42.9 fl (35.1-43.9); Red Blood Count 4.36 M/mm3 (4.2-5.4); White Blood Count 8.1 K/mm3 (4.4-11.0)
[2024-01-04 15:38] LABS: Vitamin D,25 Hydroxy 50.6 ng/mL
[2024-01-04 15:52] LABS: ALB/GLOB Ratio 1.2 RATIO (0.9-2.4); AST(SGOT) 25 U/L (15-37); Alanine Aminotransfer ALT/SGPT 19 U/L (13-56); Albumin, Serum 4.2 g/dL (3.2-5.0); Alkaline Phosphatase 63 U/L (45-117); Anion Gap 10 (5-15); BUN 15 mg/dL (7-18); BUN/Creat Ratio 15.4 RATIO (10-20); Calcium,Total 9.9 mg/dL (8.5-10.1); Chloride 100 mmol/L (98-107); Cholesterol 242 mg/dL (200); Creatinine, Serum 0.98 mg/dL (0.55-1.02); EST Glomerular Filtration Rate 61 mL/min (>60); Est Glom Filt Rate - Afr Amer 74 mL/min (>60); Globulin 3.5 g/dL (2.2-4.2); Glucose 80 mg/dL (74-106); High Density Lipoprotein 64 mg/dL; Potassium 4.5 mmol/L (3.5-5.1); Protein, Total 7.7 g/dL (6.4-8.2); Sodium Level 136 mmol/L (136-145); Triglycerides 236 mg/dL; Very Low Density Lipoprotein 47 mg/dL (5-40)
== END | disposition home or self-care (01) ==
LOC: BIMLAB 14:19
PROVIDERS: PCP Internal Medicine; Visit Provider Internal Medicine
DX: I10 Essential (primary) hypertension (principal); M85.80 Other specified disorders of bone density and structure, unspecified site
CPT/HCPCS: 36415; 80053; 80061; 82306; 85025

== ENCOUNTER 2024-01-21 12:36 | Emergency (ER) | payer MEDICARE, MEDICAID, SELFPAY ==
[2024-01-21 12:37] VITALS: BP 129/103; PULSE 67; RESP 18; TEMP 36.8; O2SAT 99
[2024-01-21 12:46] VITALS: O2SAT 96
--- NOTE | 2024-01-21 12:50 | CT_ITS ---
STUDY: CT CERVICAL SPINE WITHOUT CONTRAST REASON FOR EXAM: Female, 63 years old. Neck pain after trauma RADIATION DOSAGE (If Supplied By Facility): CTDIvol = ( 16.49 ) mGy, DLP = ( 324.33 ) mGycm TECHNIQUE: High resolution transaxial imaging was performed without contrast material. Sagittal and coronal images were reconstructed. Individualized dose optimization techniques were used for this CT. COMPARISON: None FINDINGS: Normal craniovertebral junction. There are degenerative changes of the anterior atlantoaxial articulation. Normal odontoid process. There is reversal of the normal cervical lordosis. Bones are demineralized with sclerotic endplate changes. There is 2 to 3 mm of posterior subluxation of C3 on C2. There is anatomic alignment between C3 and T1. C2-3: Sclerotic endplate changes with disc space narrowing. No spinal canal narrowing, there is bilateral foraminal narrowing due to facet joint hypertrophy. C3-4: Sclerotic endplate changes with posterior uncovertebral spurs. No spinal canal narrowing, bilateral foraminal narrowing due to facet joint hypertrophy. C4-5: Sclerotic endplate changes with posterior uncovertebral spurs. No spinal canal narrowing, bilateral foraminal narrowing due to facet joint hypertrophy. C5-6: Sclerotic endplate changes with posterior uncovertebral spurs. No spinal canal narrowing, bilateral foraminal narrowing due to facet joint hypertrophy. C6-7: Sclerotic endplate changes with posterior uncovertebral spurs. No spinal canal narrowing, bilateral foraminal narrowing due to facet joint hypertrophy. C7-T1: Normal endplates. Disc space narrowing. Normal central canal and intervertebral neuroforamina. Dense calcifications in the carotid artery bulbs. No airway narrowing or deviation. Lung apices are free of a superimposed pulmonary process. CT/Spine Cervical without Contras IMPRESSION: Multilevel degenerative changes, as described above. No demonstrated fracture or suspicious osseous lesion Reversal of the natural lordotic curvature Electronically Signed: Evaristo Mckenzie MD at 13:46 EDT ,
--- NOTE | 2024-01-21 12:50 | CT_ITS ---
STUDY: CT BRAIN WITHOUT CONTRAST REASON FOR EXAM: Female, 63 years old. Headache after trauma RADIATION DOSAGE (If Supplied By Facility): CTDIvol = ( 44.99 ) mGy, DLP = ( 829.85 ) mGycm TECHNIQUE: Transaxial CT imaging of the brain was performed without administration of intravenous contrast material. Individualized dose optimization techniques were used for this CT. COMPARISON: No relevant priors. FINDINGS: Left frontal scalp hematoma without associated fracture. Normal size ventricles and extra-axial spaces for the patient''s age. Normal white matter tracts of the cerebral hemispheres. Normal basal ganglia and thalami. Normal brainstem. Normal cerebellum. There is no intracranial hemorrhage. There are no findings of an acute ischemic infarction. There is mucoperiosteal inflammatory disease of the paranasal sinuses consistent with mild chronic sinusitis. CT/Brain/Head without Contrast IMPRESSION: Age consistent changes, no acute intracranial abnormalities Left frontal scalp hematoma without skull fracture Electronically Signed: Evaristo Mckenzie MD at 13:35 EDT ,
--- NOTE | 2024-01-21 12:55 | EX.ED.GENINJ ---
HPI History of Present Illness Chief Complaint: Fall Informant: patient Narrative Narrative: 63-year-old female presenting to the emergency room following mechanical fall. Patient states she was walking to the grocery store when she tripped over an elevated sidewalk. She states she hit her head on the ground injuring her forehead and nose. States that her left wrist was also underneath her. She notes pain to the left wrist. She was assisted back home and EMS was called. Patient was placed in a c-collar. She developed some right-sided facial numbness and route to the hospital which is improved now. This was described more as a tingling sensation. Patient notes a slight amount of neck discomfort particularly on the left. She denies any leg symptoms other than bruising and abrasions to the right knee. [facility] Medical History Health care maintenance Anxiety and depression Dermatitis Abnormal involuntary movement Flu vaccine need Neuropathy Tinnitus Lumbar radiculopathy Cervical radiculopathy Carpal tunnel syndrome Encounter for preventative adult health care examination Vitamin deficiency Muscle spasm Suspected COVID-19 virus infection URI (upper respiratory infection) hx of right elbow sugrery Asthma Osteoarthritis COPD (chronic obstructive pulmonary disease) Peptic ulcer disease Ulcerative colitis Non-rheumatic mitral regurgitation Gout Anemia Hypertension Home Medications ?Medication ?Instructions ?Recorded ?Last Taken ?Type aspirin 81 mg tablet,delayed 81 mg PO QDAY #90 tabs 02/02/22 Unknown Rx release (Adult Aspirin Regimen) omeprazole 40 mg capsule,delayed See Rx Instructions .Route 01/31/23 Unknown Rx release .COMPLEX #90 caps budesonide-formoterol HFA 160 See Rx Instructions .Route 03/07/23 Unknown Rx mcg-4.5 mcg/actuation aerosol .COMPLEX #30.6 ea inhaler (Symbicort) fluticasone propionate 50 See Rx Instructions .Route 09/05/23 Unknown Rx mcg/actuation nasal .COMPLEX #48 mL spray,suspension metoprolol tartrate 25 mg tablet 50 mg (2 x 25 mg) PO DAILY #270 09/16/23 Unknown Rx tabs allopurinol 100 mg tablet 100 mg PO DAILY #90 tabs 12/05/23 Unknown Rx gabapentin 300 mg capsule 300 mg PO BID #180 caps 01/04/24 Unknown Rx tizanidine 4 mg tablet See Rx Instructions .Route 01/04/24 Unknown Rx .COMPLEX #60 tabs hydrocodone-acetaminophen 5-325mg 1 tab PO Q6H PRN PRN Pain 3 days 01/21/24 Unknown Rx 5mg-325mg #12 TABLETS Allergy/AdvReac Type Severity Reaction Status Date / Time linezolid (From Zyvox) Allergy Unknown Unknown Verified 01/21/24 12:42 vancomycin Allergy Unknown Unknown Verified 01/21/24 12:42 ibuprofen AdvReac Unknown Verified 01/21/24 12:42 tramadol AdvReac Unknown Verified 01/21/24 12:42 Family History Mother Diabetes Surgical History History of back surgery H/O mitral valve replacement Social History Smoking Status: Never smoker Tobacco: How many years used: 1 how long ago did patient quit smokin, 1ppd second hand exposure: Yes alcohol intake: current alcohol intake frequency: holidays/special occasions only substance use type: does not use what type of physical activity do you participate in: none ROS ROS ED Constitutional Constitutional ED: Denies chills, fever(s) or weight loss Eyes Eyes: Denies change in vision or diplopia ENT ENT ED: Denies ear pain, rhinorrhea or sore throat Cardiovascular Cardiovascular: Denies chest pain, orthopnea, palpitations or racing heartbeat Respiratory/Chest Respiratory/Chest: Denies cough, dyspnea or orthopnea Gastrointestinal Gastrointestinal: Denies abdominal pain, diarrhea, nausea or vomiting Genitourinary Genitourinary ED: Denies dysuria, hematuria or urinary frequency Musculoskeletal Musculoskeletal: Reports neck pain and other Details: Left wrist pain ; Denies arthralgias or myalgias Integumentary Reports Abrasions; Denies abscess or rash Neurologic Neurologic: Reports headache(s); Denies weakness Psychiatric Psychiatric: Denies anxiety, depression, suicidal ideation or suicidal thoughts Endocrine Endocrinology: Denies polydipsia, polyphagia or polyuria Allergic/Immunologic Allergic/Immunologic ED: Denies mouth swelling, tongue swelling or urticaria EXAM Physical Exam Const Vital Signs: 01/21/24 12:37 01/21/24 12:46 Temperature 98.3 F Temperature Source Oral Pulse Rate 67 Respiratory Rate 18 Respiratory Effort Normal Non-Labored Respiratory Depth Normal Respiratory Pattern Normal Blood Pressure 129/103 H Blood Pressure Mean 111 Pulse Ox 99 96 Oxygen Delivery Method Room Air Room Air Positive well nourished and well developed General Appearance ED: well developed HEENT Reports normocephalic and moist mucous membranes HEENT Narrative: There is hematoma and abrasion to the mid forehead and nose. No obvious septal hematoma. Oropharyngeal exam is negative. Patient is in a c-collar. Eyes PERRL and EOMs intact bilaterally Neck no lymphadenopathy, supple and no JVD Resp normal respiratory effort and clear to auscultation bilaterally Cardio regular rate, regular rhythm and no murmurs GI normal to inspection, nondistended, normoactive bowel sounds and non-tender Palpation: soft Back/Spine no CVA tenderness and normal ROM Extremity Extremity Narrative: There is swelling over the left distal radius. No snuffbox tenderness. Neurovascular intact distal. Elbow and mid forearm appear normal. Right knee demonstrates superficial abrasions and mild contusion over the anterior aspect the knee. There is no joint effusion. Ligaments appear stable. Full range of motion. General Extremety ED: Negative for edema General Extremity: Negative for edema Neuro oriented x3 and CN's II-XII intact bilaterally Sensorium / Orientation: alert Motor Exam: strength 5/5 throughout Psych mental status grossly normal Mood & Affect: Negative for depressed or tearful Skin Skin Narrative: Abrasions to the face nose right knee MDM MDM MDM Narrative Medical decision making narrative: Patient received Percocet for pain. CT of the brain demonstrated no acute intracranial hemorrhage or fracture. CT of the cervical spine demonstrated no acute fracture. She was cleared from the cervical spine. My independent interpretation of the plain films of the left wrist is an acute nondisplaced fracture of the distal radius. Patient was placed in a anterior posterior plaster splint made by this physician. It was well-padded with cotton. Patient neurovascularly intact pre and post application. Patient was advised she will need to follow-up with orthopedics. I will write for pain medication at home. She is understanding of the plan. History & Record Review Discussion w/independent historian: Patient Radiography Diagnostic Testing: Clinical Impression(s) from Imaging Studies Brain CT 01/21/24 12:50 IMPRESSION: Age consistent changes, no acute intracranial abnormalities Left frontal scalp hematoma without skull fracture Electronically Signed: Evaristo Mckenzie MD at 13:35 EDT , Cervical Spine CT 01/21/24 12:50 IMPRESSION: Multilevel degenerative changes, as described above. No demonstrated fracture or suspicious osseous lesion Reversal of the natural lordotic curvature Electronically Signed: Evaristo Mckenzie MD at 13:46 EDT , Wrist X-Ray 01/21/24 13:22 IMPRESSION: Acute minimally displaced fracture in the distal lateral aspect of the radius suspected with associated soft tissue swelling Abnormal widening of the scapholunate joint space suggests ligamentous disruption, likely chronic Severe intercarpal and first carpal metacarpal arthrosis, there is subluxation of the first carpometacarpal joint with soft tissue swelling Chondrocalcinosis noted in the TFCC No other demonstrated fracture. However, wrist fractures in patients of this age can be subtle, particularly due to the overlapping structures and osteopenia. If there is strong clinical suspicion of another fracture, recommend further evaluation with bone scan or cross-sectional imaging Electronically Signed: Evaristo Mckenzie MD at 13:51 EDT , Discharge Plan Triage Chief Complaint: Fall ED Provider: James Ryder Dx/Rx/DC Orders Clinical Impression: Fall, Traumatic hematoma of forehead, Nasal contusion, Distal radius fracture, left, Abrasion of knee Instructions: Distal Radius Fx, ED Head Injury (Adult), ED Nasal Contusion Prescriptions: New hydrocodone-acetaminophen 5-325 mg tablet 1 tab PO Q6H PRN PRN (Reason: Pain) 3 Days Qty: 12 0RF No Action tizanidine 4 mg tablet See Rx Instructions .ROUTE .COMPLEX Qty: 60 1RF Dose Instruction: TAKE 1 TABLET BY MOUTH TWICE A DAY NEEDED FOR MUSCLE SPASTICITY FOR 3 MONTHS Rx Instructions: TAKE 1 TABLET BY MOUTH TWICE A DAY NEEDED FOR MUSCLE SPASTICITY FOR 3 MONTHS gabapentin 300 mg capsule 300 mg PO BID Qty: 180 1RF Rx Instructions: TAKE 1 CAPSULE BY MOUTH TWICE DAILY aspirin [Adult Aspirin Regimen] 81 mg tablet,delayed release (DR/EC) 81 mg PO QDAY Qty: 90 3RF omeprazole 40 mg capsule,delayed release(DR/EC) See Rx Instructions .ROUTE .COMPLEX Qty: 90 3RF Dose Instruction: TAKE 1 CAPSULE BY MOUTH EVERY DAY Rx Instructions: TAKE 1 CAPSULE BY MOUTH EVERY DAY Symbicort 160-4.5 mcg/actuation HFA aerosol inhaler See Rx Instructions .ROUTE .COMPLEX Qty: 30.6 2RF Dose Instruction: INHALE 2 PUFFS BY MOUTH TWICE A DAY Rx Instructions: INHALE 2 PUFFS BY MOUTH TWICE A DAY fluticasone propionate 50 mcg/actuation spray,suspension See Rx Instructions .ROUTE .COMPLEX Qty: 48 0RF Dose Instruction: INSTILL 2 SPRAY(S) INTRANASALLY NEEDED NEEDED FOR NASAL CONGESTION Rx Instructions: INSTILL 2 SPRAY(S) INTRANASALLY NEEDED NEEDED FOR NASAL CONGESTION metoprolol tartrate 25 mg tablet 50 mg PO DAILY Qty: 270 1RF Rx Instructions: TAKE 2 TABLET BY MOUTH IN THE MORNING AND 1 TABLET AT NIGHT. allopurinol 100 mg tablet 100 mg PO DAILY Qty: 90 0RF Rx Instructions: TAKE 1 TABLET BY MOUTH EVERY DAY Primary Care Provider: Naveen Chen Referrals: Naveen Chen MD [Primary Care Provider] - Giuseppe Paris DO [Med Staff - Active Staff] - As soon as possible Print Language: Welsh Disposition Disposition: Home, Self Care
[2024-01-21] MEDS: Oxycodone/Apap 5/325 Tablet PO (13:09)
--- NOTE | 2024-01-21 13:22 | RAD_ITS ---
STUDY: X-RAY - LEFT WRIST REASON FOR EXAM: Female, 63 years old. Acute pain after trauma TECHNIQUE: 3 view(s) of the wrist were obtained. COMPARISON: None. FINDINGS: The bones are diffusely demineralized. Acute nondisplaced fracture of the distal lateral radius suspected with associated soft tissue swelling. No demonstrated distal ulnar fracture. There is chondrocalcinosis noted in the TFCC. There is narrowing of the radioscaphoid joint space and abnormal widening of the scapholunate joint space suggesting ligamentous disruption, likely chronic. There is intercarpal arthrosis particularly between the lunate, capitate and hamate There is severe degenerative arthrosis between the trapezium and first metacarpal with subluxation and extra-articular calcifications. Surgical hardware in the distal first metacarpal free of complication RAD/Wrist min 3 Views IMPRESSION: Acute minimally displaced fracture in the distal lateral aspect of the radius suspected with associated soft tissue swelling Abnormal widening of the scapholunate joint space suggests ligamentous disruption, likely chronic Severe intercarpal and first carpal metacarpal arthrosis, there is subluxation of the first carpometacarpal joint with soft tissue swelling Chondrocalcinosis noted in the TFCC No other demonstrated fracture. However, wrist fractures in patients of this age can be subtle, particularly due to the overlapping structures and osteopenia. If there is strong clinical suspicion of another fracture, recommend further evaluation with bone scan or cross-sectional imaging Electronically Signed: Evaristo Mckenzie MD at 13:51 EDT ,
[2024-01-21 14:25] VITALS: BP 149/94; PULSE 65; RESP 16; TEMP 36.8; O2SAT 97
== END 2024-01-21 14:26 | disposition home or self-care (01) ==
PROVIDERS: Emergency Provider Emergency Medicine; PCP Internal Medicine; Visit Provider Emergency Medicine
DX: S00.03XA Contusion of scalp, initial encounter (principal); J44.9 Chronic obstructive pulmonary disease, unspecified; S00.33XA Contusion of nose, initial encounter; S80.211A Abrasion, right knee, initial encounter; S52.502A Unspecified fracture of the lower end of left radius, initial encounter for closed fracture; Z79.82 Long term (current) use of aspirin; Z79.899 Other long term (current) drug therapy; W10.1XXA Fall (on)(from) sidewalk curb, initial encounter; I10 Essential (primary) hypertension; Z87.891 Personal history of nicotine dependence
CPT/HCPCS: 29125; 70450; 72125; 73110; 99282

== ENCOUNTER → 2024-03-14 | Outpatient (CLI) | payer MEDICARE, MEDICAID, SELFPAY ==
--- NOTE | 2024-03-14 13:42 | BD_ITS ---
STUDY: DUAL ENERGY X-RAY ABSORPTIOMETRY / DXA REASON FOR EXAM: Female, 63 years old. Post Menopausal TECHNIQUE: Bone Mineral Density (BMD) measurements of lumbar spine and bilateral hips were obtained. COMPARISON: Comparison is made with prior study dated February 26, 2021. FINDINGS: Lumbar Spine (L1-L4): g/cm2 (0.745) / T-score (-2.8) / Z-score (-1.1) Findings are suggestive of osteoporosis with a high fracture risk. Left Femur Total: g/cm2 (0.721) / T-score (-1.8) / Z-score (-0.6) Left Femoral Neck: g/cm2 (0.605) / T-score (-2.2) / Z-score (-0.7) Right Femur Total: g/cm2 (0.670) / T-score (-2.2) / Z-score (-1.0) Right Femoral Neck: g/cm2 (0.563) / T-score (-2.6) / Z-score (-1.1) The T-Scores on the most recent prior examination were: Lumbar Spine (L1-L4): There has been worsening of bone density since the previous examination. Left Femur Total: which represents an improvement of 0.6%. Right Femur Total: which represents a worsening of 7.1%. BD/Dexa Bone Density Study IMPRESSION: The patient is considered osteoporotic as outlined below according to World Boby Organization (WHO) criteria with a high fracture risk. There has been worsening of bone density since the previous examination. Reference Information: The T-score is the number of standard deviations above or below the standard which is normal for young adults at their peak bone mineral density. The World Health Organization (WHO) interprets the T-scores as follows: Above -1 Normal bone density Between -1 and -2.5 Osteopenia Equal to / or below -2.5 Osteoporosis As a practical clinical guideline, osteopenia may be graded as follows: Mild -1 through -1.5 Moderate -1.6 through -2.0 Severe -2.1 through -2.4 The Z-score is the number of standard deviations above or below age-matched controls. A Z-score of less than -1.5 would be considered abnormal. References: 1. NIH Osteoporosis and Related Bone Diseases www osteo.org 2. International Society for Clinical Densitometry www iscd.org 3. National Osteoporosis Foundation www nof.org Electronically Signed: Francisco Campos MD at 15:24 EDT ,
--- NOTE | 2024-03-14 13:42 | BI_ITS ---
MAMMOGRAPHY - BILATERAL SCREENING REASON FOR EXAM: Female, 63 years old. Routine annual screening examination. PERTINENT HISTORY: Non-contributory. TECHNIQUE: Digital bilateral breast mmai (3D mammographic acquisition) in the CC and MLO projections. 2-D mediolateral oblique (MLO) and craniocaudad (CC) views of both breasts were obtained. CAD: Full Field Digital Mammography with Computer Added Detection was performed. COMPARISON: Comparison is made with prior study dated July 20, 2022 and February 26, 2021. FINDINGS: Breast Composition: The breasts are heterogeneously dense, which may obscure small masses. There are no dominant masses or suspicious calcifications. Small benign-appearing right axillary lymph nodes. No other significant abnormalities are identified. There has been no significant change since the prior study. BI/SCRN MAMM (CAD)W/MAMI BILAT IMPRESSION: Stable bilateral screening mammogram. Yearly follow-up mammogram recommended. (A) ASSESSMENT CATEGORY: BIRADS Category 2: Benign. A letter regarding these results will be sent to the patient by the facility within 30 days. Approximately 10% of breast cancers are not detected by mammography. A normal mammogram should not delay biopsy of a clinically suspicious abnormality. [id number] Electronically Signed: Francisco aCmpos MD at 8:23 EDT ,
== END | disposition home or self-care (01) ==
LOC: OPBI 13:42
PROVIDERS: PCP Internal Medicine; Referring Provider Internal Medicine; Visit Provider Internal Medicine
DX: Z12.31 Encounter for screening mammogram for malignant neoplasm of breast (principal); Z78.0 Asymptomatic menopausal state
CPT/HCPCS: 77063; 77067; 77080

== ENCOUNTER → 2024-10-01 | Outpatient (CLI) | payer MEDICARE, SELFPAY ==
[2024-10-01 12:19] LABS: Absolute Lymphocyte Count 1.33 X10^3/uL (0.83-4.51); Absolute Neutrophil Count 5.7 X10^3/uL (2.0-7.7); Basophil# 0.06 X10^3/uL; Basophil% 0.7 % (0-1); Eosinophil# 0.35 X10^3/uL; Eosinophils% 4.3 % (0-5); Hematocrit 40.3 % (37-47); Hemoglobin 12.8 g/dL (12.0-15.0); Lymphocyte # 1.33 X10^3/ul (0.83-4.51); Lymphocyte % 16.2 % (19-41); Mean Corp Hgb Conc 31.8 g/dL (32-36); Mean Corpuscular Hgb 30.9 pg (27.0-32.0); Mean Corpuscular Volume 97.3 fL (81-99); Mean Platelet Vol. 10.5 fl (6.2-12.0); Monocyte# 0.73 X10^3/uL; Monocyte% 8.9 % (0-10); NRBC Flagged by Analyzer 0 % (0-5); Neutrophil % 69.7 % (47-70); Platelet Count 228 K/mm3 (150-450); RBC Distribution Width CV 11.6 % (11.6-14.6); RBC Distribution Width SD 41.4 fl (35.1-43.9); Red Blood Count 4.14 M/mm3 (4.2-5.4); White Blood Count 8.2 K/mm3 (4.4-11.0)
[2024-10-01 12:33] LABS: ALB/GLOB Ratio 1.1 RATIO (0.9-2.4); AST(SGOT) 24 U/L (15-37); Alanine Aminotransfer ALT/SGPT 19 U/L (13-56); Albumin, Serum 3.9 g/dL (3.2-5.0); Alkaline Phosphatase 68 U/L (45-117); Anion Gap 10 (5-15); BUN 12 mg/dL (7-18); BUN/Creat Ratio 14.7 RATIO (10-20); Calcium,Total 10.2 mg/dL (8.5-10.1); Chloride 100 mmol/L (98-107); Cholesterol 208 mg/dL (200); Creatinine, Serum 0.82 mg/dL (0.55-1.02); EST Glomerular Filtration Rate 75 mL/min (>60); Est Glom Filt Rate - Afr Amer 90 mL/min (>60); Globulin 3.6 g/dL (2.2-4.2); Glucose 88 mg/dL (74-106); High Density Lipoprotein 71 mg/dL; Potassium 4.2 mmol/L (3.5-5.1); Protein, Total 7.5 g/dL (6.4-8.2); Sodium Level 136 mmol/L (136-145); Triglycerides 146 mg/dL; Uric Acid 5.5 mg/dL (2.6-6.0); Very Low Density Lipoprotein 29 mg/dL (5-40)
[2024-10-01 16:02] LABS: Vitamin D,25 Hydroxy 75.1 ng/mL
== END | disposition home or self-care (01) ==
LOC: BIMLAB 11:15
PROVIDERS: PCP Internal Medicine; Referring Provider Internal Medicine; Visit Provider Internal Medicine
DX: I10 Essential (primary) hypertension (principal); M10.9 Gout, unspecified; J45.909 Unspecified asthma, uncomplicated; M81.0 Age-related osteoporosis without current pathological fracture
CPT/HCPCS: 36415; 80053; 80061; 82306; 84550; 85025

== ENCOUNTER 2025-07-18 11:32 | Emergency (ER) | payer MEDICARE, MEDICAID, SELFPAY ==
[2025-07-18] VITALS (8 sets, daily range): BP systolic 126–147; BP diastolic 88–112; PULSE 85–93; RESP 20–26; TEMP 36.7; O2SAT 94–100; BMI 21.9
--- NOTE | 2025-07-18 11:51 | RAD_ITS ---
PROCEDURE: HIP, UNI W/ PELVIS 2-3 VIEWS 07/18/2025 REASON FOR EXAM: HIP PAIN TECHNIQUE: Procedure Code: RAD Modality: DX Procedure: HIP, UNI W/ PELVIS 2-3 VIEWS Laterality: Left hip FINDINGS: Bones: Transverse impacted fracture of the neck of the left proximal femur. There is cephalic migration of the distal fracture fragment. Joints: Osteoarthritis of the left hip joint. Soft tissues: Findings suggestive of a distended urinary bladder. Other: RAD/HIP, UNI W/ Pelvis 2-3 Views IMPRESSION: Impacted subcapital fracture of the proximal left femoral neck with degenerativ e changes. Cephalic migration of the distal fracture fragment. Reading Location: [facility]
--- NOTE | 2025-07-18 11:58 | EX.ED.DYSGE1 ---
HPI History of Present Illness Chief Complaint: Lower Extremity Injury Narrative Narrative: Chief complaint and HPI: 65-year-old female with past medical history of GERD, anxiety/depression, osteoporosis, COPD, gout presents for evaluation of left pain after a fall. Patient admits to drinking 2 glasses of wine yesterday evening. Fell in her bedroom at approximately 2 AM and has since been lying on the floor. Per patient, she is not a daily drinker however daughter told EMS that the patient is. Patient states she did hit her head. Not on blood thinners. No LOC. Patient complains of left hip pain. Left hip is shortened and internally rotated. She was unable to ambulate given the pain in her hip. She denies any fever, chills, shortness of breath, chest pain abdominal pain, nausea, vomiting, dysuria. Review of systems: See HPI Medications: As listed on the chart Allergies: As listed on the chart PFSH: Per chart Vital signs: As listed on the chart. Reviewed. Physical exam: Gen: A&O x3, anxious, fidgety Head: Normocephalic, atraumatic Eyes: No sclera icterus, conjunctiva clear, PERRL, EOMI ENT: TMs clear BL, dry mucous membranes, no swelling/lacerations/blood in the mouth or the nares, No nasal septal hematoma, no facial tenderness Neck: Trachea midline, No JVD, Nontender, full range of motion CV: RRR, no murmurs, no chest wall TTP Resp: Lungs CTA BL, no w/r/c GI: Abd soft, non-distended, non-tender, no r/r/g Musc: Full ROM of all the extremities except left lower extremity secondary to left hip pain, left hip is shortened and internally rotated, hip is tender to palpation, DP/PT pulses +2 bilaterally, compartments soft, good capillary refill, sensation intact, no spinal TTP, no guillermina step-offs Skin: Warm, dry, scattered abrasions to the right lower extremity Neuro: Alert, oriented, grossly intact, sensation intact, GCS 15 [facility] Medical History Allergies Arthritis Swallowing disorder Balance disorder Choreiform movements GERD (gastroesophageal reflux disease) Osteoporosis Health care maintenance Anxiety and depression Dermatitis Abnormal involuntary movement Flu vaccine need Neuropathy Tinnitus Lumbar radiculopathy Cervical radiculopathy Carpal tunnel syndrome Encounter for preventative adult health care examination Vitamin deficiency Muscle spasm Suspected COVID-19 virus infection URI (upper respiratory infection) hx of right elbow sugrery Asthma Osteoarthritis COPD (chronic obstructive pulmonary disease) Peptic ulcer disease Ulcerative colitis Non-rheumatic mitral regurgitation Gout Anemia Hypertension Home Medications ?Medication ?Instructions ?Recorded ?Last Taken ?Type aspirin 81 mg tablet,delayed 81 mg PO QDAY #90 tabs 02/02/22 Unknown Rx release (Adult Aspirin Regimen) budesonide-formoterol HFA 160 See Rx Instructions .Route 03/07/23 Unknown Rx mcg-4.5 mcg/actuation aerosol .COMPLEX #30.6 ea inhaler (Symbicort) calcium carbonate (Calcium 600) 600 mg PO BID #180 tabs 04/25/24 Unknown Rx cholecalciferol (vitamin D3) 50 50 mcg PO DAILY #90 caps 04/25/24 Unknown Rx mcg (2,000 unit) capsule metoprolol tartrate 25 mg tablet 50 mg (2 x 25 mg) PO DAILY #270 01/24/25 Unknown Rx tabs ketoconazole 2 % shampoo 1 applic topical 3XW #120 mL 05/10/25 Unknown Rx levocetirizine 5 mg tablet (Xyzal) 5 mg PO QDAY PRN allergy symptoms 05/10/25 Unknown Rx #90 tabs triamcinolone acetonide 0.1 % 1 applic topical BID PRN rash #80 05/10/25 Unknown Rx topical ointment grams denosumab 60 mg/mL subcutaneous 60 mg subcut [id number] #1 mL 05/13/25 Unknown Rx syringe (Prolia) fluticasone propionate 50 See Rx Instructions .Route 06/03/25 Unknown Rx mcg/actuation nasal .COMPLEX #48 mL spray,suspension albuterol sulfate 90 mcg/actuation 2 puff inhalation Q6H PRN 06/05/25 Unknown Rx aerosol inhaler shortness of breath or wheezing #8.5 grams omeprazole 40 mg capsule,delayed See Rx Instructions .Route 06/06/25 Unknown Rx release .COMPLEX #90 caps allopurinol 100 mg tablet 100 mg PO DAILY #90 tabs 06/17/25 Unknown Rx cyclobenzaprine 10 mg tablet 10 mg PO BID PRN muscle spasm 30 06/24/25 Unknown Rx days #60 tabs gabapentin 300 mg capsule 300 mg PO BID #180 caps 06/24/25 Unknown Rx Allergy/AdvReac Type Severity Reaction Status Date / Time linezolid (From Zyvox) Allergy Unknown Unknown Verified 07/18/25 11:40 vancomycin Allergy Unknown Unknown Verified 07/18/25 11:40 ibuprofen AdvReac Unknown Verified 07/18/25 11:40 tramadol AdvReac Unknown Verified 07/18/25 11:40 Family History Mother Diabetes Surgical History History of back surgery H/O mitral valve replacement Social History (Updated 07/18/25 @ 11:41 by Amy Guzmán) household members: family current occupational status: disabled Smoking Status: Never smoker Tobacco: How many years used: 1 how long ago did patient quit smokin, 1ppd second hand exposure: Yes alcohol intake: current alcohol intake frequency: holidays/special occasions only substance use type: does not use what type of physical activity do you participate in: none EXAM Physical Exam Const Vital Signs: 07/18/25 11:33 07/18/25 12:30 07/18/25 12:31 Temperature 98.1 F Temperature Source Oral Pulse Rate 85 Respiratory Rate 20 H Blood Pressure 147/112 H 126/95 H Blood Pressure Mean 123 107 Pulse Ox 94 94 Oxygen Delivery Method Room Air Oxygen Flow Rate (L/min) 07/18/25 13:00 07/18/25 13:15 07/18/25 14:00 Temperature Temperature Source Pulse Rate 85 91 Respiratory Rate 22 H 26 H Blood Pressure 141/93 H 141/93 H 142/88 H Blood Pressure Mean 109 109 105 Pulse Ox 97 98 Oxygen Delivery Method Room Air Nasal Cannula Oxygen Flow Rate (L/min) 2 07/18/25 14:05 Temperature Temperature Source Pulse Rate Respiratory Rate Blood Pressure Blood Pressure Mean Pulse Ox 100 Oxygen Delivery Method Nasal Cannula Oxygen Flow Rate (L/min) 2 MDM MDM MDM Narrative Medical decision making narrative: 65-year-old female with past medical history of GERD, anxiety/depression, osteoporosis, COPD, gout presents for evaluation of left pain after a fall. Patient admits to drinking 2 glasses of wine yesterday evening. Fell in her bedroom at approximately 2 AM and has since been lying on the floor. Per patient, she is not a daily drinker however daughter told EMS that the patient is. Patient states she did hit her head. Not on blood thinners. No LOC. Patient complains of left hip pain. See physical exam findings. Differential diagnosis includes but is not limited to left hip fracture, left hip contusion, intracranial bleed/injury, electrolyte abnormality, rhabdomyolysis, dehydration, alcohol intoxication. NS bolus, Zofran, morphine ordered for symptoms. Will get EKG and chest x-ray for suspected left hip fracture for operative planning. I did personally look at the CT head. Concern is for head bleed. Patient's head of bed increased to 30 degrees. SBP goal less than 140. Repeat blood pressure currently 126/95. Will add on coagulation panel. Patient not on blood thinners so no need for reversal. CBC with leukocytosis at 17.7. Hemoglobin and platelets unremarkable. Coagulation panel unremarkable. CMP unremarkable except for mild AST elevation of 36. Would suspect this in someone who drinks alcohol. CPK mildly elevated to 225. Patient receiving fluids. Alcohol level 42.1. Patient mildly intoxicated. UA negative for UTI. CT of the cervical spine without any acute traumatic injury. Degenerative disc disease. CT of the head shows a new area of increased curvilinear density in the posterior superior aspect of the right parietal lobe. This was not seen on prior study. May represent either focal area of contusion versus possible venous angioma with calcification. Given this finding, I did personally speak to the radiologist. Suspect more of a vascular anomaly however cannot rule out a head bleed with her recent trauma. Recommended MRI brain. Given there is a concern for possible traumatic head bleed. Patient will need to be transferred to a trauma center. [facility] Will be contacted. X-ray of the hip and pelvis was personally reviewed and interpreted by me, ED physician. Patient has a left hip fracture. Per radiology impacted subcapital fracture of the proximal left femoral neck. Urine drug screen negative. Patient was discussed with the ER physician Dr. Hazel who accepted admission. Patient will be transferred. She confirmed understand the plan. EKG: Interpreted by me/EM physician: EKG shows normal sinus rhythm with nonspecific T wave abnormalities. Prolonged QTc of 490. Heart rate 85 Diagnostic: Interpreted by me/EM physician: X-ray of the chest shows no pneumonia, pneumothorax, pneumonia. Mild cardiomegaly. Radiology in agreement. Impression: 1. Possible traumatic head bleed versus vascular anomaly 2. Left hip fracture 3. Alcohol intoxication 4. Mild dehydration 5. AST transaminitis 6. Leukocytosis, likely reactive from trauma 7. Mechanical fall Lab Data Labs: Laboratory Results - last 24 hr 07/18/25 07/18/25 11:49 12:43 WBC 17.7 H RBC 3.84 L Hgb 12.6 Hct 37.4 MCV 97.4 MCH 32.8 H MCHC 33.7 RDW Std Deviation 45.4 H RDW Coeff of Raheel 12.7 Plt Count 244 MPV 9.2 Immature Gran % (Auto) 0.600 Neut % (Auto) 88.2 H Lymph % (Auto) 4.8 L [place] % (Auto) 5.8 Eos % (Auto) 0.3 Baso % (Auto) 0.3 Absolute Neuts (auto) 15.6 H Absolute Lymphs (auto) 0.85 Nucleated RBC % 0 PT 12.5 INR 0.9 APTT 24.7 Sodium 139 Potassium 3.7 Chloride 100 Carbon Dioxide 23.6 Anion Gap 15 BUN 12 Creatinine 0.57 L Estim Creat Clear Calc 67.27 Est GFR (MDRD) Non-Af 100 BUN/Creatinine Ratio 21.1 H Glucose 90 Calcium 9.2 Total Bilirubin 0.53 AST 36 H ALT 26 Alkaline Phosphatase 68 Total Creatine Kinase 225 H Total Protein 7.1 Albumin 4.2 Globulin 2.9 Albumin/Globulin Ratio 1.5 Urine Color Yellow Urine Clarity Clear Urine pH 6.5 Ur Specific Starr 1.010 Urine Protein 15 H Urine Glucose (UA) Normal Urine Ketones Negative Urine Occult Blood 10 H Urine Nitrite Negative Urine Bilirubin Negative Urine Urobilinogen Normal Ur Leukocyte Esterase Negative Urine RBC 0 SEEN Urine WBC 0 SEEN Ur Squamous Epith Cells 0 SEEN Urine Bacteria 0 SEEN Urine Mucus 0 SEEN Urine Opiates Screen NEGATIVE U Buprenorphine Qual NEGATIVE Ur Oxycodone Screen NEGATIVE Urine Methadone Screen NEGATIVE Urine Fentanyl Screen NEGATIVE Ur Barbiturates Screen NEGATIVE Ur Phencyclidine Scrn NEGATIVE Ur Amphetamines Screen NEGATIVE U Benzodiazepines Scrn NEGATIVE Urine Cocaine Screen NEGATIVE U Cannabinoids Screen NEGATIVE Ethyl Alcohol 42.1 H Radiography Diagnostic Testing: Clinical Impression(s) from Imaging Studies Hip/Pelvis X-Ray 07/18/25 11:51 IMPRESSION: Impacted subcapital fracture of the proximal left femoral neck with degenerative changes. Cephalic migration of the distal fracture fragment. Reading Location: [facility] Brain CT 07/18/25 12:15 IMPRESSION: New area of increased curvilinear density in the posterior superior aspect of the right parietal lobe. This was not seen on prior study. This may represent either a focal area of contusion versus possible venous angioma with calcifications. Reading Location: [facility] Cervical Spine CT 07/18/25 12:15 IMPRESSION: There is loss of the lordosis. There is grade 1 spondylolisthesis at C2-3, 0.4 cm. There is anterior wedging of the C4-5 and C6 vertebral bodies, similar to the prior. There is degenerative disc disease at each level. Is no visible acute traumatic injury or significant interval change. Reading Location: [facility] Chest X-Ray 07/18/25 12:20 IMPRESSION: No Acute Findings. Stable examination. Reading Location: [facility] Discharge Plan Triage Chief Complaint: Lower Extremity Injury ED Provider: Cayden Regalado Dx/Rx/DC Orders Prescriptions: No Action calcium carbonate [Calcium 600] 600 mg calcium (1,500 mg) tablet 600 mg PO BID Qty: 180 3RF cholecalciferol (vitamin D3) 50 mcg (2,000 unit) capsule 50 mcg PO DAILY Qty: 90 3RF ketoconazole 2 % shampoo 1 applic topical 3XW Qty: 120 3RF triamcinolone acetonide 0.1 % ointment 1 applic topical BID PRN (Reason: rash) Qty: 80 3RF levocetirizine [Xyzal] 5 mg tablet 5 mg PO QDAY PRN (Reason: allergy symptoms) Qty: 90 2RF aspirin [Adult Aspirin Regimen] 81 mg tablet,delayed release (DR/EC) 81 mg PO QDAY Qty: 90 3RF Symbicort 160-4.5 mcg/actuation HFA aerosol inhaler See Rx Instructions .ROUTE .COMPLEX Qty: 30.6 2RF Dose Instruction: INHALE 2 PUFFS BY MOUTH TWICE A DAY Rx Instructions: INHALE 2 PUFFS BY MOUTH TWICE A DAY metoprolol tartrate 25 mg tablet 50 mg PO DAILY Qty: 270 0RF Rx Instructions: TAKE 2 TABLET BY MOUTH IN THE MORNING AND 1 TABLET AT NIGHT. Prolia 60 mg/mL syringe 60 mg subcut [id number] Qty: 1 1RF fluticasone propionate 50 mcg/actuation spray,suspension See Rx Instructions .ROUTE .COMPLEX Qty: 48 1RF Dose Instruction: INSTILL 2 SPRAY(S) INTRANASALLY NEEDED NEEDED FOR NASAL CONGESTION Rx Instructions: INSTILL 2 SPRAY(S) INTRANASALLY NEEDED NEEDED FOR NASAL CONGESTION albuterol sulfate 90 mcg/actuation HFA aerosol inhaler 2 puff inhalation Q6H PRN (Reason: shortness of breath or wheezing) Qty: 8.5 3RF omeprazole 40 mg capsule,delayed release(DR/EC) See Rx Instructions .ROUTE .COMPLEX Qty: 90 1RF Dose Instruction: TAKE 1 CAPSULE BY MOUTH EVERY DAY Rx Instructions: TAKE 1 CAPSULE BY MOUTH EVERY DAY allopurinol 100 mg tablet 100 mg PO DAILY Qty: 90 1RF Rx Instructions: TAKE 1 TABLET BY MOUTH EVERY DAY cyclobenzaprine 10 mg tablet 10 mg PO BID PRN (Reason: muscle spasm) 30 Days Qty: 60 0RF gabapentin 300 mg capsule 300 mg PO BID Qty: 180 0RF Rx Instructions: TAKE 1 CAPSULE BY MOUTH TWICE DAILY Primary Care Provider: Naveen Chen Referrals: Naveen Chen MD [Primary Care Provider, Internal Medicine] Print Language: Icelandic
[2025-07-18 12:00] LABS: Hematocrit 37.4 % (37-47); Hemoglobin 12.6 g/dL (12.0-15.0); Immature Granulocytes Count 0.100 X10^3/uL (0.0-0.0); Mean Corp Hgb Conc 33.7 g/dL (32-36); Mean Corpuscular Volume 97.4 fL (81-99); Mean Platelet Vol. 9.2 fl (6.2-12.0); NRBC Flagged by Analyzer 0 % (0-5); Platelet Count 244 K/mm3 (150-450); RBC Distribution Width CV 12.7 % (11.6-14.6); RBC Distribution Width SD 45.4 fl (35.1-43.9); Red Blood Count 3.84 M/mm3 (4.2-5.4); White Blood Count 17.7 K/mm3 (4.4-11.0)
[2025-07-18] MEDS: 0.9% Normal Saline (1000mL) 1,000 ML 1000 ML IV (12:04)
--- NOTE | 2025-07-18 12:15 | CT_ITS ---
PROCEDURE: BRAIN/HEAD WITHOUT CONTRAST 07/18/2025 REASON FOR EXAM: TRAUMA TECHNIQUE: Procedure Code: CTBR Modality: CT Procedure: BRAIN/HEAD WITHOUT CONTRAST Coronal and Sagittal reconstruction series were provided. One or more dose reduction techniques were used (e.g., Automated exposure control, adjustment of the mA and/or kV according to patient size, use of iterative reconstruction technique. RADIATION DOSE SUMMARY: CTDlvol: 44.99 mGy DLP: 829.85 mGycm COMPARISON: January 21, 2024 FINDINGS: Brain: Within normal limits for age there is evidence of a 8.4 mm focal area of curvilinear increased density in the posterior aspect of the right parietal lobe superiorly. This may represent either a focal contusion versus possible venous angioma malformation. This was not present on prior study. No surrounding edema or mass effect is seen. CSF Spaces: Mild generalized cerebral atrophy Sinuses/Mastoids: Partial opacification of the left maxillary sinus and left ethmoid sinus. Bones: No fracture seen. CT/Brain/Head without Contrast IMPRESSION: New area of increased curvilinear density in the posterior superior aspect of t he right parietal lobe. This was not seen on prior study. This may represent either a focal area of contusion versus possib le venous angioma with calcifications. Reading Location: [facility]
--- NOTE | 2025-07-18 12:15 | CT_ITS ---
PROCEDURE: SPINE CERVICAL WITHOUT CONTRAS 07/18/2025 REASON FOR EXAM: TRAUMA TECHNIQUE: Procedure Code: CTSPC Modality: CT Procedure: SPINE CERVICAL WITHOUT CONTRAS Coronal and Sagittal reconstruction series were provided. One or more dose reduction techniques were used (e.g., Automated exposure control, adjustment of the mA and/or kV according to patient size, use of iterative reconstruction technique. RADIATION DOSE SUMMARY: DLP: 1093 mGycm COMPARISON: Jan 21 2024 FINDINGS: There is loss of the lordosis. There is grade 1 spondylolisthesis at C2-3, 0.4 cm. There is fusion of the C3 and 4 vertebral bodies. There is fusion of the C6 and 7 vertebral bodies. There is anterior wedging of the C4-5 and C6 vertebral bodies, similar to the prior. There is degenerative disc disease at each level. The facets are aligned with severe sclerosis. Prevertebral soft tissues are within normal limits. Shotty adenopathy is noted in the right and left, measuring less than 1 cm in short axis. CT/Spine Cervical without Contras IMPRESSION: There is loss of the lordosis. There is grade 1 spondylolisthesis at C2-3, 0.4 cm. There is anterior wedging of the C4-5 and C6 vertebral bodies, similar to the p rior. There is degenerative disc disease at each level. Is no visible acute traumatic injury or significant interval change. Reading Location: [facility]
--- NOTE | 2025-07-18 12:20 | RAD_ITS ---
PROCEDURE: CHEST 1 VIEW (PORTABLE) 07/18/2025 REASON FOR EXAM: FALL TECHNIQUE: Frontal view of the chest. COMPARISON: April 28, 2023. FINDINGS: Hardware: Prior midline sternotomy and aortic valve replacement. Heart: Mild cardiomegaly. Lungs: The lungs are clear. Bones: Degenerative changes are identified within the thoracic spine. RAD/Chest 1 View (Portable) IMPRESSION: No Acute Findings. Stable examination. Reading Location: [facility]
[2025-07-18 12:33] LABS: Alcohol, Blood (Medical)-Serum 42.1 mg/dL (<=10.0)
[2025-07-18 12:34] LABS: AST(SGOT) 36 U/L (<=31); Alanine Aminotransfer ALT/SGPT 26 U/L (<=34); Albumin, Serum 4.2 g/dL (3.4-4.8); Alkaline Phosphatase 68 U/L (35-104); Anion Gap 15 (5-15); BUN 12 mg/dL (4-19); BUN/Creat Ratio 21.1 RATIO (10-20); CPK Total, Creatine Kinase 225 U/L (24-195); Calcium,Total 9.2 mg/dL (7.6-11.0); Carbon Dioxide 23.6 mmol/L (21.0-32.0); Chloride 100 mmol/L (98-108); Estimated Creatinine Clearance 67.27 ml/min (50-250); Globulin 2.9 g/dL (2.2-4.2); Glucose 90 mg/dL (70-99); Potassium 3.7 mmol/L (3.3-5.1)
[2025-07-18 12:35] LABS: Partial Thromboplast Time 24.7 Seconds (24.1-36.2)
[2025-07-18 12:41] LABS: Prothrombin Time (Protime)PT. 12.5 SECONDS (11.7-14.9)
[2025-07-18 12:46] LABS: Mucous, Urine 0 SEEN /hpf (<or=2+); Red Blood Cells-Urine 0 SEEN /hpf (0-5); Squamous Epithelial Cells - UA 0 SEEN /hpf (5-10)
[2025-07-18 12:56] LABS: Color, Urine Yellow (Yellow); Glucose, Dipstick Normal (Normal); Ketone-Dipstick Negative (Negative); Leukocyte Esterase-Dipstick Negative /ul (Negative); Nitrite-Dipstick Negative (Negative); Occult Blood-Urine 10 /ul (Negative); Protein-Dipstick 15 mg/dl (Negative); Specific Gravity, Urine 1.010 (1.002-1.030); Urine Bilirubin Dipstick Negative (Negative)
[2025-07-18 13:36] LABS: Barbiturate Urine NEGATIVE (< 200 ng/mL); Benzodiazepine Urine NEGATIVE (< 200 ng/mL); PCP Urine NEGATIVE (< 25 ng/mL); THC Urine NEGATIVE (< 50 ng/mL)
--- OUTSIDE RECORDS SUMMARY | 2025-07-18 18:16 | XMS RPT_ITS | CCD ---
Author Organization [facility] Care Team Providers Care Cogeneration Operator Name Role Phone Brauch, Carmen Unavailable No, Physician Unavailable Unavailable No, Physician Unavailable Unavailable CESAR, SHEA BEBO Unavailable Unavailable NO, PHYSICIAN Unavailable Unavailable CRUZ GARY Unavailable Unavailable NO, PHYSICIAN Unavailable Unavailable BLOSSOM, BILL B. Unavailable Unavailable BLOSSOM, BILL B. Unavailable Unavailable CESAR, SHEA BEBO Unavailable Unavailable NO, PHYSICIAN Unavailable Unavailable WILL, YUMI S. Unavailable Unavailable WILL, YUMI S. Unavailable Unavailable BRAUCH, CARMEN Unavailable Unavailable BRAUCH, CARMEN Unavailable Unavailable BLOSSOM, BILL B. Unavailable Unavailable BRAUCH, CARMEN Unavailable Unavailable BLOSSOM, BILL B. Unavailable Unavailable BLOSSOM, BILL B. Unavailable Unavailable [facility] Unavailable Unavailable BRAUCH, CARMEN Unavailable Unavailable Brauch, Carmen A Unavailable Unavailable Harry Feliciano Unavailable Unavailable Brauch, Carmen A Unavailable Unavailable Brauch, Caremn A Unavailable Unavailable Brauch, Carmen A Unavailable Unavailable Brauch, Carmen A Unavailable Unavailable Andres Mason Unavailable Unavailable Chavez Sheikh Unavailable Unavailable Awais Ross Unavailable Unavailable Brauch, Carmen A Unavailable Unavailable Brauch, Carmen A Unavailable Unavailable Andressa Alas Unavailable Unavailable Brauch, Carmen A Unavailable Unavailable Giuseppe Jama Unavailable Unavailable Brauch, Carmen A Unavailable Unavailable Brauch, Carmen A Unavailable Unavailable Brauch, Carmen A Unavailable Unavailable Brauch, Carmen A Unavailable Unavailable Brauch, Carmen A Unavailable Unavailable Brauch, Carmen A Unavailable Unavailable Brauch, Carmen A Unavailable Unavailable Tucker Horton G Unavailable Unavailable Brauch, Carmen A Unavailable Unavailable Brauch, Carmen A Unavailable Unavailable LorenzoMega W Unavailable Unavailable Cesar, Shea Unavailable Unavailable Brauch, Carmen A Unavailable Unavailable Lipsmeyer, Diego P Unavailable Unavaila ble Brauch, Carmen A Unavailable Unavailable Brauch, Carmen A Unavailable Unavailable Brauch, Carmen A Unavailable Unavailable Brauch, Carmen A Unavailable Unavailable Brauch, Carmen A Unavailable Unavailable Brauch, Carmen A Unavailable Unavailable Brauch, Carmen A Unavailable Unavailable Norgan, Malachi S Unavailable Unavailable Brauch, Carmen A Unavailable Unavailable Brauch, Carmen A Unavailable Unavailable Abro, Masroor A Unavailable Unavailable Alvino, Joe L Unavailable Unavailable TatianaSukhdeep dumont Unavailable Unavailable Brauch, Carmen A Unavailable Unavailable Misc1, Doctor Unavailable Unavailable MONISHA CABRAL Unavailable Unavailable NO, PHYSICIAN Unavailable Unavailable BLOSSOM, BILL B. Unavailable Unavailable BLOSSOM, BILL B. Unavailable Unavailable NO, PHYSICIAN Unavailable Unavailable BLOSSOM, BILL B. Unavailable Unavailable NO, PHYSICIAN Unavailable Unavailable BLOSSOM, BILL B. Unavailable Unavailable BLOSSOM, BILL B. Unavailable Unavailable NO, PHYSICIAN Unavailable Unavailable BLOSSOM, BILL B. Unavailable Unavailable BLOSSOM, BILL B. Unavailable Unavailable NO, PHYSICIAN Unavailable Unavailable PROVIDER, UNKNOWN Unavailable Unavailable [facility], Doctor Unavailable Unavailable Remi, Debra Unavailable Unavailable ANDRESSA ALAS MD Unavailable Unavailable ANDRESSA ALAS MD Unavailable Unavailable ANDRESSA ALAS MD Unavailable Unavailable ANDRESSA ALAS MD Unavailable Unavailable HARPREET, ALI Unavailable Unavailable WHITESIDE, SUDHA Unavailable Unavailable STONE, AILYN Unavailable Unavailable WHITESIDE, SUDHA Unavailable Unavailable STONE, AILYN Unavailable Unavailable WHITESIDE, SUDHA Unavailable Unavailable WHITESIDE, SUDHA Unavailable Unavailable HARPREET, ALI Unavailable Unavailable Brauch, Carmen Nannette Primary Care Provider Dr. Alex Chen Primary Care Provider [phone] Dr. Alex Chen Referring Provider Cash WINKLER, TAMARA Bernard Attending Provider [phone] Dr. Alex Chen Primary Care Provider [phone] Dr. Alex Chen Attending Provider [phone] Dr. Alex Chen Referring Provider [phone] ALEX CHEN MD Primary Care Physician ([phone] DR PERNELL ESCAMILLA DO Attending Unavailable VERO DELACRUZ, EFRADHAONGBE B Primary Care Unavailab Pauline DELACRUZ, OPAL Attending Unavailable VERO DELACRUZ, HALBE B Primary Care Unavailab Pauline DELACRUZ, OPAL Attending Unavailable VERO DELACRUZ, ALEX B Primary Care Unavailab Abril DELACRUZ, OLMAN Olguin Attending Unavail able VERO DELACRUZ, ROSHANONGBE B Primary Care UnavailDr. Alex Randall MD Primary Care Provider Dr. Alex Chen MD Referring Provider [phone] NURSE, BIM Attending Provider Unavailable Dr. Alex Chen MD Attending Provider [phone] Oleghe, Efewongbe Primary Care Unavailable Oleghe, Efewongbe Attending Unavailable Oleghe, Efewongbe Referring Unavailable Oleghe, Efewongbe Primary Care Unavailable Oleghe, Efewongbe Attending Unavailable Oleghe, Efewongbe Referring Unavailable Oleghe, Efewongbe Primary Care Unavailable NURSE, BIM Attending Unavailable Oleghe, Efewongbe Referring Unavailable Oleghe, Efewongbe Attending Unavailable Oleghe, Efewongbe Referring Unavailable Oleghe, Efewongbe Primary Care Unavailable Oleghe, Efewongbe Attending Unavailable Oleghe, Efewongbe Referring Unavailable Oleghe, Efewongbe Primary Care Unavailable Oleghe, Efewongbe Primary Care Unavailable Oleghe, Efewongbe Attending Unavailable Oleghe, Efewongbe Referring Unavailable Allergies Allergy Classification Reported Allergen(s) Allergy Type Date of Onset Reaction(s) Facility (11 sources) cefuroxime; Translations: [CEFUROXIME] Propensity to adverse reactions to drug 11-26-19 15 Shortness Of Breath [facility] Work Phone: (17 sources) ibuprofen; Translations: [IBUPROFEN] Propensity to adverse reactions to drug 09-13-19 18 Other (See Comments) [facility] Work Phone: (11 sources) ketorolac; Translations: [KETOROLAC TROMETHAMINE] Propensity to adverse reactions to drug 08-23-20 17 [facility] Work Phone: (11 sources) naproxen; Translations: [NAPROXEN] Propensity to adverse reactions to drug 05-10-20 14 GI Intolerance [facility] Work Phone: (11 sources) sulfaSALAzine; Translations: [SULFASALAZINE] Propensity to adverse reactions to drug 05-05-20 16 Anaphylaxis [facility] Work Phone: (17 sources) traMADol; Translations: [TRAMADOL] Propensity to adverse reactions to drug 09-13-19 18 GI Intolerance [facility] Work Phone: (1 source) brompheniramine Drug Allergy 10-02-19 18 [facility] Repository (1 source) cefuroxime Drug Allergy 10-02-19 18 [facility] (1 source) dextromethorphan Drug Allergy 10-02-19 18 [facility] (2 sources) ibuprofen Drug Allergy 10-02-19 18 [facility] (3 sources) linezolid Drug Allergy 05-25-20 17 [facility] (1 source) metoclopramide Drug Allergy 10-02-19 18 [facility] (1 source) naproxen Drug Allergy 10-02-19 18 [facility] (1 source) pseudoephedrine Drug Allergy 10-02-19 18 [facility] (2 sources) vancomycin Drug Allergy 10-02-19 18 [facility] (6 sources) linezolid Drug Allergy 01-22-20 22 Unknown [facility] (6 sources) Vancomycin Drug Allergy 01-22-20 22 Unknown [facility] (3 sources) misc antibiotic Propensity to adverse reactions to drug [facility] (1 source) traMADol Drug Allergy 05-10-20 [facility] Repository Medications Current Medications Medication Drug Class(es) Dates Sig (Normalized) Sig (Original) [id number] 200 actuat albuterol 0.09 mg/actuat metered dose inhaler (20 sources) beta2-Adrenergic Agonist Start: 04-25-2024 Albuterol Sulfate 90 mcg/actuation HFA aerosol inhaler Active 2 NMA INHALATION EVERY 6 HOURS as needed for shortness of breath or wheezing 8.5 3 April 25, 2024 12:00am Start: 01-21-2022 take 2 puff(s) by in halation every six hours as needed for wheezing Albuterol Sulfate Active 0 .Route NEEDED 8.5 January 21, 2022 1:16pm INHALE 2 PUFF EVERY 6 HOURS NEEDED FOR SHORTNESS OF BREATH OR WHEEZING Start: 07-31-2019 End: 05-19-2023 take 2 puff(s) by inhalation every six hours as needed for wheezing Albuterol Sulfate 90 mcg/actuation HFA aerosol inhaler Discontinued 0 .ROUTE .COMPLEX 8.5 1 April 07, 2022 9:05am May 19, 2023 3:03pm INHALE 2 PUFFS EVERY 6 HOURS NEEDED FOR SHORTNESS OF BREATH/WHEEZING Start: 08-30-2018 End: 07-31-2019 Albuterol Sulfate (Ventolin Hfa) 90 mcg/actuation HFA aerosol inhaler Discontinued 2 NMA INHALATION EVERY 6 HOURS as needed for shortness of breath or wheezing 8.5 3 August 30, 2018 4:16pm July 31, 2019 4:58pm Start: 08-30-2018 End: 07-31-2019 take 1 puff(s) by inhalation every six hours Albuterol Sulfate (Ventolin Hfa) 90 mcg/actuation HFA aerosol inhaler Discontinued 2 PUFF INHALATION EVERY 6 HOURS 8.5 August 30, 2018 4:16pm July 31, 2019 4:58pm Start: 08-30-2018 End: 07-31-2019 take 1 puff(s) by inhalation every six hours Albuterol Sulfate (Ventolin Hfa) 90 mcg/actuation HFA aerosol inhaler Discontinued 2 PUFF INHALATION EVERY 6 HOURS 8.5 August 30, 2018 4:16pm July 31, 2019 4:58pm Start: 03-20-2018 End: 08-30-2018 Albuterol Sulfate (Ventolin Hfa) 90 mcg/actuation HFA aerosol inhaler Discontinued 2 NMA INHALATION EVERY 6 HOURS as needed for shortness of breath or wheezing 8.5 3 March 20, 2018 12:18pm August 30, 2018 4:16pm Start: 03-20-2018 End: 08-30-2018 take 1 puff(s) by inhalation every six hours Albuterol Sulfate (Ventolin Hfa) 90 mcg/actuation HFA aerosol inhaler Discontinued 2 PUFF INHALATION EVERY 6 HOURS 8.5 March 20, 2018 12:18pm August 30, 2018 4:16pm Start: 02-11-2018 End: 03-20-2018 Albuterol Sulfate (Ventolin Hfa) 90 mcg/actuation HFA aerosol inhaler Discontinued 2 NMA INHALATION EVERY 6 HOURS as needed February 11, 2018 12:00am March 20, 2018 12:18pm Start: 02-11-2018 End: 03-20-2018 take 1 puff(s) by inhalation every six hours Albuterol Sulfate (Ventolin Hfa) 90 mcg/actuation HFA aerosol inhaler Discontinued 2 PUFF INHALATION EVERY 6 HOURS February 11, 2018 12:00am March 20, 2018 12:18pm take 2.5 mg by inhal ation three times daily as needed albuterol (PROVENTIL) 2.5 mg /3 mL (0.083 %) nebulizer solution Inhale 2.5 mg 3 (three) times a day as needed . 0 Active take 2 puff(s) by in halation every four to six hours as needed for wheezing VENTOLIN HFA 90 mcg/actuation inhaler Inhale 2 puffs every 4 to 6 hours as needed for wheezing . 0 Active VENTOLIN HFA 90 mcg/actuation inhaler Inhale 2 puffs every 4 to 6 hours as needed for wheezing . Active albuterol 90 mcg /actuation inhaler Inhale 1 puff as needed . Active VENTOLIN HFA 90 mcg/actuation inhaler Inhale 2 puffs every 6 (six) hours as needed for wheezing. Active allopurinol 100 mg oral tablet (20 sources) Xanthine Oxidase Inhibitor Start: 02-11-2018 End: 03-12-2025 take 1 tablet by mouth once daily Allopurinol 100 mg tablet Active 100 mg PO DAILY 90 0 March 12, 2025 1:22pm TAKE 1 TABLET BY MOUTH EVERY DAY atorvastatin 40 mg oral tablet (4 sources) HMG-CoA Reductase Inhibitor Start: 11-07-2017 take 1 tablet by mouth once daily atorvastatin (LIPITOR) 40 MG tablet Take 1 (one) tablet (40 mg total) by mouth nightly. 30 tablet 2 11/07/2017 Active 120 actuat budesonide 0.16 mg/actuat / formoterol fumarate 0.0045 mg/actuat metered dose inhaler (20 sources) Corticosteroid, beta2-Adrenergic Agonist Start: 03-07-2023 take 2 puff(s) by mouth twice daily Budesonide-Formoter ol (Symbicort) 160-4.5 mcg/actuation HFA aerosol inhaler Active 0 .ROUTE .COMPLEX 30.6 2 March 07, 2023 3:59pm INHALE 2 PUFFS BY MOUTH TWICE A DAY Start: 09-07-2019 End: 03-07-2023 Budesonide-Formoterol (Symbi heladio) 160-4.5 mcg/actuation HFA aerosol inhaler Discontinued 2 NMA INHALATION TWICE A DAY 1 March 04, 2021 9:56am August 19, 2021 2:32pm Start: 09-07-2019 End: 03-07-2023 take 1 puff(s) by inhalation twice daily Budesonide-Formoterol (Symbicort) 160-4.5 mcg/actuation HFA aerosol inhaler Discontinued 2 PUFF INHALATION TWICE A DAY March 04, 2021 9:56am August 19, 2021 2:32pm Start: 02-21-2019 End: 09-07-2019 Budesonide-Formoterol (Symbi heladio) 160-4.5 mcg/actuation HFA aerosol inhaler Discontinued 2 NMA INHALATION TWICE A DAY 1 February 21, 2019 12:00am September 07, 2019 5:09pm Start: 02-21-2019 End: 09-07-2019 take 1 puff(s) by inhalation twice daily Budesonide-Formoterol (Symbicort) 160-4.5 mcg/actuation HFA aerosol inhaler Discontinued 2 PUFF INHALATION TWICE A DAY February 21, 2019 12:00am September 07, 2019 5:09pm calcium carbonate 1500 mg oral tablet (2 sources) Start: 04-25-2024 take 1 tablet by mouth twice daily Calcium Carbonate (Calcium 600) 600 mg calcium (1,500 mg) tablet Active 600 mg PO TWICE A DAY 180 April 25, 2024 12:00am cholecalciferol 0.05 mg oral capsule (2 sources) Vitamin D Start: 04-25-2024 take 1 capsule by mouth once daily Cholecalciferol (Vitamin D3) 50 mcg (2,000 unit) capsule Active 50 ug PO DAILY 90 April 25, 2024 12:00am cyclobenzaprine hydrochloride 10 mg oral tablet (10 sources) Muscle Relaxant Start: 05-29-2024 End: 05-10-2025 take 1 tablet by mouth twice daily as needed for muscle spasms Cyclobenzaprine 10 mg tablet Active 10 mg PO TWICE A DAY as needed for muscle spasm 90 May 10, 2025 3:04pm 1 ml denosumab 60 mg/ml prefilled syringe (4 sources) RANK Ligand Inhibitor Start: 04-25-2024 End: 05-16-2024 Denosumab (Prolia) 60 mg/mL syringe Active 60 mg SC every 6 months 1 May 16, 2024 2:08pm fluticasone propionate 0.05 mg/actuat metered dose nasal spray (20 sources) Corticosteroid Start: 09-05-2023 End: 03-11-2025 Fluticasone Propionate 50 mcg/actuation spray,suspension Active 0 .ROUTE .COMPLEX 48 0 March 11, 2025 2:18pm INSTILL 2 SPRAY(S) INTRANASALLY NEEDED NEEDED FOR NASAL CONGESTION Start: 02-04-2021 End: 09-05-2023 Fluticasone Propionate 50 mc g/actuation spray,suspension Discontinued 2 NMA INTRANASAL NEEDED as needed for Nasal Congestion 14 10August 10, 2023 5:34pm September 05, 2023 5:37pm Start: 10-14-2020 End: 02-04-2021 Fluticasone Propionate 16 GM spray,suspension Discontinued 2 NMA INTRANASAL NEEDED as needed for Nasal Congestion October 14, 2020 10:43am February 04, 2021 1:25pm Start: 10-14-2020 End: 08-31-2022 Fluticasone Propionate Disco ntinued 2 SPRAY INTRANASAL NEEDED June 04, 2022 1:17pm August 31, 2022 9:47am Start: 02-11-2018 End: 11-16-2018 Fluticasone Propionate 250 mcg/actuation blister with device Discontinued 1 NMA INHALATION TWICE A DAY February 11, 2018 12:00am November 16, 2018 2:27pm Start: 02-11-2018 End: 10-14-2020 Fluticasone Propionate 50 mc g/actuation spray,suspension Discontinued 2 NMA INTRANASAL daily 47.4 3 May 29, 2020 1:51pm October 14, 2020 10:43am Start: 02-11-2018 End: 11-16-2018 Fluticasone Propionate Disco ntinued 1 INH INHALATION TWICE A DAY February 11, 2018 12:00am November 16, 2018 2:27pm Start: 02-11-2018 End: 10-14-2020 Fluticasone Propionate Disco ntinued 2 SPRAY INTRANASAL daily 47.4 May 29, 2020 1:51pm October 14, 2020 10:43am take 2 spray(s) nasa l route once daily fluticasone (FLONASE) 50 mcg/actuation nasal spray Instill 2 sprays into each nostril daily. 0 Active furosemide 40 mg oral tablet (4 sources) Loop Diuretic take 1 tablet by mouth once daily furosemide (LASIX) 40 MG tablet Take 40 mg by mouth daily. Active gabapentin 300 mg oral capsule (20 sources) Anti-epileptic Agent Start: 02-11-2018 End: 04-05-2025 take 1 capsule by mouth twice daily Gabapentin 300 mg capsule Active 300 mg PO TWICE A DAY 180 0 April 05, 2025 2:49pm TAKE 1 CAPSULE BY MOUTH TWICE DAILY take 1 capsule by mouth once chrsi ly gabapentin (NEURONTIN) 300 MG capsule Take 300 mg by mouth daily. Active ketoconazole 20 mg/ml medicated shampoo (2 sources) Azole Antifungal Start: 05-10-2025 Ketoconazole 2 % shampoo Active 1 NMA TOPICAL 3 TIMES A WEEK 120 3 May 10, 2025 12:00am Start: 04-11-2023 End: 05-09-2023 ketoconazole 2% topical crea m Apply 1 kathe, Topical, qDay, X 14 day(s), # 30 gram(s), 1 Refill(s), Cream Start Date: 04/11/23 Stop Date: 05/09/23 Status: Ordered levocetirizine dihydrochloride 5 mg oral tablet (1 source) Histamine-1 Receptor Antagonist Start: 05-10-2025 take 1 tablet by mouth once daily as needed Levocetirizine (Xyzal) 5 mg tablet Active 5 mg PO daily as needed for allergy symptoms 90 2 May 10, 2025 12:00am lisinopril 10 mg oral tablet (5 sources) Angiotensin Converting Enzyme Inhibitor Start: 08-25-2017 lisinopril (PRINIVIL,ZESTRIL) 10 MG tablet take 1 tablet by gadiel th once daily, then take 1 tablet by mouth lisinopril (PRINIVIL,ZESTRIL) 5 MG table t Take 5 mg by mouth daily. Active magnesium oxide 400 mg oral tablet (4 sources) take 1 tablet by mouth once daily, then take 1 tablet by mouth magnesium oxide (MAG-OX) 400 mg tablet Take 400 mg by mouth daily. Active metroNIDAZOLE 500 mg oral tablet (1 source) Nitroimidazole Antimicrobial Start: 018 metroNIDAZOLE (FLAGYL) 500 MG tablet naproxen 250 mg oral tablet (4 sources) Nonsteroidal Anti-inflammatory Drug take 1 tablet by mouth twice daily at mealtime naproxen (NAPROSYN) 250 MG tablet Take 250 mg by mouth 2 (two) times a day with meals. Active omeprazole 40 mg delayed release oral capsule (20 sources) Proton Pump Inhibitor Start: 019 End: 025 take 1 capsule by mouth once daily Omeprazole 40 mg capsule,delayed release(DR/EC) Active 0 .ROUTE .COMPLEX 90 0 March 11, 2025 2:18pm TAKE 1 CAPSULE BY MOUTH EVERY DAY Start: 02-11-2018 End: 05-10-2019 take 1 capsule by mouth once daily Omeprazole 20 mg capsule,delayed release(DR/EC) Discontinued 20 mg PO daily February 11, 2018 12:00am May 10, 2019 2:52pm oseltamivir 75 mg oral capsule (1 source) Neuraminidase Inhibitor Start: 08-25-2017 oseltamivir (TAMIFLU) 75 MG capsule potassium chloride 10 meq extended release oral capsule (4 sources) take 1 capsule by mouth once daily, then take 1 capsule by mouth potassium chloride (MICRO-K) 10 MEQ CR capsule Take 10 mEq by mouth daily. Active traMADol hydrochloride 50 mg oral tablet (1 source) Opioid Agonist Start: 09-30-2017 traMADol (ULTRAM) 50 mg tablet triamcinolone acetonide 0.001 mg/mg topical ointment (1 source) Corticosteroid Start: 05-10-2025 Triamcinolone Acetonide 0.1 % ointment Active 1 NMA TOPICAL TWICE A DAY as needed for rash 80 3 May 10, 2025 12:00am Completed/Discontinued Medications Medication Drug Class(es) Dates Sig (Normalized) Sig (Original) acetaminophen 325 mg / HYDROcodone bitartrate 5 mg oral tablet (4 sources) Opioid Agonist Start: 01-27-2024 End: 01-31-2024 Hydrocodone-Acetami nophen 5-325 mg tablet Discontinued 1 {tbl} PO Q8H as needed for pain 12 4 0 January 27, 2024 January 30, 2024 12:00am January 31, 2024 12:05am Fracture of distal end of left radius Start: 01-21-2024 End: 05-10-2025 Hydrocodone-Acetaminophen 5- 325 mg tablet Discontinued 1 {tbl} PO EVERY 6 HOURS NEEDED as needed for Pain 12 3 0 January 21, 2024 May 10, 2025 2:02pm Fracture of distal end of left radius alendronic acid 35 mg oral tablet (20 sources) Bisphosphonate Start: 02-04-2021 End: 01-21-2024 take 1 tablet by mouth every week Alendronate 35 mg tablet Discontinued 35 mg PO EVERY WEEK 20 1 October 21, 2022 2:13pm January 21, 2024 12:45pm Start: 06-19-2018 End: 06-23-2020 take 1 tablet by mouth every week Alendronate 35 mg tablet Discontinued 35 mg PO EVERY WEEK 20 0 June 19, 2018 12:00am June 23, 2020 2:37pm ALPRAZolam 0.5 mg oral tablet (14 sources) Benzodiazepine Start: 02-11-2018 End: 11-16-2018 Alprazolam 0.5 mg tablet Discontinued 0.5 mg PO 2 to 3 times per day as needed February 11, 2018 12:00am November 16, 2018 2:28pm take 1 tablet by gadiel th once as needed for sleep ALPRAZolam (XANAX) 0.5 MG tablet Take 0. 5 mg by mouth nightly as needed for sleep. Active amoxicillin 500 mg / clavulanate 125 mg oral tablet (6 sources) Penicillin-class Antibacterial Start: 06-18-2019 End: 07-09-2019 Amoxicillin-Pot Clavulanate 500-125 mg tablet Discontinued 1 {tbl} PO TWICE A DAY 14 June 18, 2019 12:00am July 09, 2019 2:34pm Start: 06-18-2019 End: 07-09-2019 take 1 tablet by mouth twice daily Amoxicillin-Pot Clavulanate Discontinued 1 TABLET PO TWICE A DAY June 18, 2019 12:00am July 09, 2019 2:34pm aspirin 81 mg delayed release oral tablet (20 sources) Nonsteroidal Anti-inflammatory Drug Start: 02-11-2018 End: 02-02-2022 take 1 tablet by mouth once daily Aspirin (Adult Aspirin Regimen) 81 mg tablet,delayed release (DR/EC) Discontinued 81 mg PO daily 90 3 February 04, 2021 1:24pm February 02, 2022 1:48pm Start: 11-08-2017 take 2 tablets by mo [facility] once daily aspirin 81 MG EC tablet Take 2 (two) tablets (162 mg total) by mouth daily. 60 tablet 2 11/08/2017 Active take 1 tablet by gadiel once daily aspirin 81 MG EC tablet Take 81 mg by mouth daily. Active cephalexin 500 mg oral capsule (6 sources) Cephalosporin Antibacterial Start: 09-09-2021 End: 01-21-2022 take 1 capsule by mouth every twelve hours Cephalexin 500 mg capsule Discontinued 500 mg PO EVERY 12 HOURS 14 September 09, 2021 1:00am January 21, 2022 1:01pm cholestyramine resin 4000 mg powder for oral suspension (14 sources) Bile Acid Sequestrant Start: 02-11-2018 End: 10-12-2019 Cholestyramine (With Sugar) 4 gram powder Discontinued 4 g PO TWICE A DAY February 11, 2018 12:00am October 12, 2019 2:35pm take 1 dose by mouth twice daily at mealtime cholestyramine-aspartame (cholestyramine light) 4 gram PwPk Take 1 packet by mouth 2 (two) times a day with meals. 0 Active escitalopram 5 mg oral tablet (12 sources) Serotonin Reuptake Inhibitor Start: 03-20-2018 End: 11-16-2018 take 1 tablet by mouth once daily Escitalopram Oxalate 5 mg tablet Discontinued 5 mg PO DAILY 90 3 June 19, 2018 12:00am November 16, 2018 2:26pm fluconazole 150 mg oral tablet (3 sources) Azole Antifungal Start: 04-29-2023 End: 05-19-2023 take 1 tablet by mouth once daily Fluconazole 150 mg tablet Discontinued 150 mg PO DAILY 1 April 29, 2023 12:00am May 19, 2023 3:02pm Fluticasone Propion-Salmeterol (14 sources) Corticosteroid, beta2-Adrenergic Agonist Start: 02-21-2019 End: 02-21-2019 Fluticasone Propion-Salmeterol (Advair Diskus) 250-50 mcg/dose blister with device Discontinued 1 INH INHALATION TWICE A DAY February 21, 2019 10:24am February 21, 2019 11:02am Start: 02-21-2019 End: 02-21-2019 Fluticasone Propion-Salmeter ol (Advair Diskus) 250-50 mcg/dose blister with device Discontinued 1 NMA INHALATION TWICE A DAY February 21, 2019 12:00am February 21, 2019 11:02am Start: 02-21-2019 End: 02-21-2019 Fluticasone Propion-Salmeter ol (Advair Diskus) 250-50 mcg/dose blister with device Discontinued 1 INH INHALATION TWICE A DAY February 21, 2019 12:00am February 21, 2019 11:02am Start: 02-21-2019 End: 02-21-2019 Fluticasone Propion-Salmeter ol (Advair Diskus) 250-50 mcg/dose blister with device Discontinued 1 INH INHALATION TWICE A DAY February 20, 2019 11:00pm February 21, 2019 10:02am take 1 puff(s) by in halation twice daily as needed fluticasone-salmeterol (ADVAIR DISKUS) 250-50 mcg/dose diskus inhaler Inhale 1 puff 2 (two) times a day as needed . 0 Active fluticasone-salm eterol (ADVAIR DISKUS) 250-50 mcg/dose diskus inhaler Inhale 1 puff 2 (two) times a day as needed . Active fluticasone-salm eterol (ADVAIR DISKUS) 250-50 mcg/dose diskus inhaler Inhale 1 puff 2 (two) times a day. Active halobetasol propionate 0.5 mg/ml topical cream (20 sources) Corticosteroid Start: 03-28-2023 End: 01-21-2024 Halobetasol Propionate 0.05 % cream Discontinued 0 .ROUTE .COMPLEX 45 August 18, 2023 3:59pm January 21, 2024 12:44pm APPLY TOPICALLY EVERY DAY NEEDED FOR RASH Start: 01-21-2022 End: 03-28-2023 Halobetasol Propionate 0.05 % cream Discontinued 1 NMA TOPICAL daily as needed for rash 50 January 21, 2022 1:16pm March 28, 2023 9:12am Start: 02-24-2018 End: 11-16-2018 Halobetasol Propionate 0.05 % cream Discontinued 1 NMA TOPICAL daily February 24, 2018 12:00am November 16, 2018 3:16pm halobetasol (ULT RAVATE) 0.05 % ointment Apply 1 application topically daily as needed . 0 Active halobetasol (ULT RAVATE) 0.05 % cream Apply topically 2 (two) times a day. Active LORazepam 0.5 mg oral tablet (6 sources) Benzodiazepine Start: 09-09-2021 End: 01-21-2024 take 1 tablet by mouth once daily as needed for anxiety Lorazepam 0.5 mg tablet Discontinued 0.5 mg PO DAILY NEEDED as needed for Anxiety September 09, 2021 1:00am January 21, 2024 12:44pm mesalamine 1200 mg delayed release oral tablet (6 sources) Aminosalicylate End: 12-13-2017 take 1200 mg by mouth once daily at breakfast mesalamine (LIALDA) 1.2 g EC tablet Take 1,200 mg by mouth daily with breakfast. 12/13/2017 Discontinued metoprolol tartrate 25 mg oral tablet (20 sources) beta-Adrenergic Mary Start: 10-14-2020 End: 11-03-2020 take 1 tablet by mouth at bedtime Metoprolol Tartrate 25 MG tablet Discontinued 25 mg PO AT BEDTIME October 14, 2020 1:00am November 03, 2020 12:13pm Start: 05-10-2019 End: 01-24-2025 Metoprolol Tartrate 25 mg ta blet Discontinued 50 mg PO DAILY 270 September 16, 2023 11:37am January 24, 2025 2:29pm TAKE 2 TABLET BY MOUTH IN THE MORNING AND 1 TABLET AT NIGHT. Start: 05-10-2019 End: 07-26-2022 Metoprolol Tartrate Disconti nued 0 .ROUTE .COMPLEX 180 January 02, 2020 8:30am October 14, 2020 10:43am TAKE 2 TABLET BY MOUTH IN THE MORNING AND 1 TABLET AT NIGHT. Start: 03-20-2018 End: 05-10-2019 take 1 tablet by mouth twice daily Metoprolol Tartrate 25 mg tablet Discontinued 0 .ROUTE .COMPLEX 180 March 23, 2019 7:29am May 10, 2019 2:52pm TAKE 1 TABLET BY MOUTH TWICE A DAY Start: 02-11-2018 End: 03-20-2018 Metoprolol Tartrate 25 mg ta blet Discontinued 12.5 mg PO TWICE A DAY February 11, 2018 12:00am March 20, 2018 12:21pm Start: 02-11-2018 End: 03-20-2018 take 12.5 mg by mouth twice daily Metoprolol Tartrate Discontinued 12.5 MG PO TWICE A DAY February 11, 2018 12:00am March 20, 2018 12:21pm Start: 11-07-2017 take 0.5 tablet by m outh twice daily metoprolol tartrate (LOPRESSOR) 25 MG tablet Take 0.5 (one-half) tablet (12.5 mg total) by mouth 2 (two) times a day. 30 tablet 2 11/07/2017 Active Start: 08-17-2017 metoprolol tar trate (LOPRESSOR) 25 MG tablet mirtazapine 15 mg oral tablet (4 sources) Start: 11-10-2023 End: 01-21-2024 take 1 tablet by mouth at bedtime Mirtazapine 15 mg tablet Discontinued 15 mg PO AT BEDTIME 60 November 10, 2023 9:20am January 21, 2024 12:45pm Start: 07-11-2023 End: 11-10-2023 Mirtazapine 15 mg tablet Dis continued 15 mg PO AT BEDTIME 60 July 11, 2023 1:00am November 10, 2023 9:21am TAKE 1/2 TABLET DAILY X 2 WEEKS THEN INCREASE TO 1 TABLET nitrofurantoin, macrocrystals 100 mg oral capsule (6 sources) Nitrofuran Antibacterial Start: 06-12-2019 End: 10-12-2019 take 1 capsule by mouth twice daily at mealtime Nitrofurantoin Macrocrystal 100 mg capsule Discontinued 100 mg PO TWICE A DAY 10 June 12, 2019 12:00am October 12, 2019 2:36pm must administer with a meal/food nystatin [id number] unt/ml topical cream (7 sources) Polyene Antifungal Start: 08-08-2023 End: 01-21-2024 Nystatin 100,000 unit/gram cream Discontinued 0 .ROUTE .COMPLEX 180 0 September 05, 2023 5:37pm January 21, 2024 12:43pm 1 APPLICATION TOPICALLY THREE TIMES A DAY FOR 3 MONTHS Start: 05-19-2023 End: 08-08-2023 Nystatin 100,000 unit/gram c ream Discontinued 1 NMA TOPICAL THREE TIMES A DAY 30 90 5 May 19, 2023 12:00am August 08, 2023 5:07pm Start: 03-27-2023 End: 04-06-2023 nystatin 100,000 units/g top ical ointment Apply 1 kathe, Topical, TID, X 10 day(s), # 30 gram(s), 0 Refill(s) Start Date: 03/27/23 Stop Date: 04/06/23 Status: Ordered ondansetron 4 mg disintegrating oral tablet (15 sources) Serotonin-3 Receptor Antagonist Start: 09-09-2021 End: 09-09-2022 take 1 tablet by mouth every eight hours as needed for nausea Ondansetron 4 mg tablet,disintegrating Discontinued 4 mg PO EVERY 8 HOURS NEEDED as needed for Nausea 10 September 09, 2021 1:00am September 09, 2022 2:18pm Start: 09-06-2017 End: 12-13-2017 ondansetron (ZOFRAN-ODT) 4 M G disintegrating tablet End: 12-13-2017 take 1 tablet by mouth every eight hours as needed ondansetron (ZOFRAN) 4 MG tablet Take 4 mg by mouth every 8 (eight) hours as needed for nausea. 12/13/2017 Discontinued OXcarbazepine 150 mg oral tablet (6 sources) Anti-epileptic Agent Start: 11-16-2018 End: 04-29-2020 take 1 tablet by mouth three times daily Oxcarbazepine 150 mg tablet Discontinued 150 mg PO THREE TIMES A DAY November 16, 2018 12:00am April 29, 2020 1:56pm oxyCODONE hydrochloride 5 mg oral capsule (8 sources) Opioid Agonist Start: 02-11-2018 End: 06-19-2018 take 1 capsule by mouth every six hours as needed Oxycodone 5 mg capsule Discontinued 5 mg PO EVERY 6 HOURS as needed 0 February 11, 2018 12:00am June 19, 2018 3:00pm Start: 11-16-2017 End: 12-13-2017 take 1 tablet by mouth every six hours as needed oxyCODONE (ROXICODONE) 5 MG immediate release tablet Take 5 mg by mouth every 6 (six) hours as needed . 11/16/2017 12/13/2017 Discontinued predniSONE 20 mg oral tablet (2 sources) Start: 05-19-2023 End: 07-11-2023 take 1 tablet by mouth once daily Prednisone 20 mg tablet Discontinued 20 mg PO DAILY 10 May 19, 2023 12:00am July 11, 2023 2:28pm risperiDONE 1 mg oral tablet (6 sources) Atypical Antipsychotic Start: 11-16-2018 End: 04-27-2021 take 1 tablet by mouth at bedtime Risperidone 1 mg tablet Discontinued 1 mg PO AT BEDTIME November 16, 2018 12:00am April 27, 2021 12:08pm sucralfate 100 mg/ml oral suspension (6 sources) Aluminum Complex End: 12-13-2017 take 1 g by mouth four times daily before mealtime sucralfate (CARAFATE) 100 mg/mL suspension Take 1 g by mouth 4 (four) times a day before meals and nightly. 12/13/2017 Discontinued take 1 tablet by gadiel th four times daily before mealtime sucralfate (CARAFATE) 1 gram tablet Take 1 g by mouth 4 (four) times a day before meals and nightly. Active tiZANidine 4 mg oral tablet (20 sources) Central alpha-2 Adrenergic Agonist Start: 05-26-2021 End: 05-29-2024 take 1 tablet by mouth twice daily as needed Tizanidine 4 mg tablet Discontinued 0 .ROUTE .COMPLEX 60 1 April 06, 2024 10:20am May 29, 2024 12:18pm TAKE 1 TABLET BY MOUTH TWICE A DAY NEEDED FOR MUSCLE SPASTICITY FOR 3 MONTHS Start: 04-29-2021 End: 05-26-2021 take 1 tablet by mouth once as needed Tizanidine 4 mg tablet Discontinued 4 mg PO ONCE as needed for muscle spasticity 30 0 April 29, 2021 12:18pm May 26, 2021 11:25am Start: 03-20-2018 End: 04-29-2021 take 1 tablet by mouth twice daily as needed Tizanidine 4 mg tablet Discontinued 4 mg PO TWICE A DAY as needed for muscle spasticity 60 2 February 27, 2021 12:53pm April 29, 2021 12:18pm Start: 02-24-2018 End: 03-20-2018 take 1 tablet by mouth three times daily as needed Tizanidine 4 mg tablet Discontinued 4 mg PO THREE TIMES A DAY as needed February 24, 2018 12:00am March 20, 2018 12:18pm take 1 tablet by gadiel th every eight hours as needed tiZANidine (ZANAFLEX) 4 MG tablet Take 4 mg by mouth every 8 (eight) hours as needed . 0 Active tiZANidine (ESTELITA FLEX) 4 MG capsule Take by mouth 3 (three) times a day. Active 24 hr topiramate 50 mg extended release oral capsule (14 sources) Anti-epileptic Agent Start: 02-11-2018 End: 06-19-2018 take 1 capsule by mouth once daily Topiramate 50 mg capsule,extended release 24hr Discontinued 50 mg PO daily February 11, 2018 12:00am June 19, 2018 3:00pm take 1 tablet by mouth once arnulfo y topiramate (TOPAMAX) 50 MG tablet Take 50 mg by mouth daily . 0 Active 30 actuat umeclidinium 0.0625 mg/actuat dry powder inhaler (19 sources) Anticholinergic Start: 03-20-2018 End: 02-21-2019 take 62.5 ug by inhalation every twenty-four hours Umeclidinium (Incruse Ellipta) 62.5 mcg/actuation blister with device Discontinued 1 NMA INHALATION Q24H 30 3 March 20, 2018 12:17pm February 21, 2019 10:25am Start: 02-11-2018 End: 03-20-2018 take 62.5 ug by inhalation every twenty-four hours Umeclidinium (Incruse Ellipta) 62.5 mcg/actuation blister with device Discontinued 1 INH INHALATION Q24H February 11, 2018 8:40pm March 20, 2018 12:18pm Start: 02-11-2018 End: 03-20-2018 take 62.5 ug by inhalation every twenty-four hours Umeclidinium (Incruse Ellipta) 62.5 mcg/actuation blister with device Discontinued 1 NMA INHALATION Q24H February 11, 2018 12:00am March 20, 2018 12:18pm Start: 02-11-2018 End: 03-20-2018 take 62.5 ug by inhalation every twenty-four hours Umeclidinium (Incruse Ellipta) 62.5 mcg/actuation blister with device Discontinued 1 INH INHALATION Q24H February 11, 2018 12:00am March 20, 2018 12:18pm Start: 02-11-2018 End: 03-20-2018 take 62.5 ug by inhalation every twenty-four hours Umeclidinium (Incruse Ellipta) 62.5 mcg/actuation blister with device Discontinued 1 INH INHALATION Q24H February 10, 2018 11:00pm March 20, 2018 11:18am Start: 09-18-2017 INCRUSE ELLIPT A 62.5 mcg/actuation DsDv take 62.5 ug by inha lation once daily INCRUSE ELLIPTA 62.5 mcg/actuation DsDv Inhale 62.5 mcg daily . 0 Active INCRUSE ELLIPTA 62.5 mcg/actuation DsDv Inhale 62.5 mcg daily . Active Problems Active Problems Problem Classification Problem Date Documented Da te Episodic/Chronic Allergic reactions (7 sources) Allergy status to other drugs, medicaments and biological substances status; Translations: [Allergy status to narcotic agent status] Onset: 03-24-2017 05-19-2023 Episodic Anxiety disorders (19 sources) Anxiety state; Translations: [Anxiety disorder, unspecified] Onset: 01-24-2014 09-13-2017 Chronic Asthma (9 sources) Asthma; Translations: [Unspecified asthma, uncomplicated] Onset: 10-01-2024 10-21-2020 Chronic Cardiac and circulatory congenital anomalies (8 sources) Left atrial dilatation; Translations: [Left atrial dilation] Onset: 09-03-2016 09-13-2017 Chronic Cardiac dysrhythmias (10 sources) Nonsustained ventricular tachycardia ; Translations: [Ventricular tachycardia] Onset: 09-13-2017 09-13-2017 Chronic Chronic obstructive pulmonary disease and bronchiectasis (15 sources) Chronic obstructive lung disease; Translations: [Chronic obstructive pulmonary disease with (acute) exacerbation] Onset: 11-13-2014 09-13-2017 Chronic Conditions associated with dizziness or vertigo (6 sources) Dizziness; Translations: [Dizziness and giddiness] 11-16-2018 Episodic Congestive heart failure; nonhypertensive (3 sources) Acute on chronic diastolic (congestive) heart failure; Translations: [ACUTE ON CHRONIC DIASTOLIC (CONGESTIVE) HEART FAILURE] Onset: 08-14-2017 Chronic Deficiency and other anemia (3 sources) Iron deficiency anemia secondary to blood loss (chronic); Translations: [Anemia in other chronic diseases classified elsewhere] Onset: 08-14-2017 Chronic Disorders of lipid metabolism (14 sources) Mixed hyperlipidemia; Translations: [Hyperlipidemia, unspecified] Onset: 01-24-2014 09-13-2017 Chronic E Codes: Fall (2 sources) Fall; Translations: [Unspecified fall, initial encounter] 01-29-2024 Episodic Esophageal disorders (12 sources) Gastro-esophageal reflux disease without esophagitis; Translations: [Gastro-esophageal reflux disease with esophagitis] Onset: 01-24-2014 09-13-2017 Chronic Essential hypertension (18 sources) Essential hypertension; Translations: [Essential (primary) hypertension] Onset: 06-06-2014 09-13-2017 Chronic Fracture of upper limb (2 sources) Unspecified fracture of the lower end of left radius, initial encounter for closed fracture; Translations: [Fracture of distal end of left radius] 01-29-2024 Episodic Gastroduodenal ulcer (1 source) Peptic ulcer, site unspecified, unspecified as acute or chronic, without hemorrhage or perforation; Translations: [PEPTIC ULC, SITE UNSP, UNSP AC OR CHR, W/O HEMOR OR PERF] Onset: 08-14-2017 Chronic Gout and other crystal arthropathies (6 sources) Gout, unspecified; Translations: [Gout] Onset: 03-24-2017 10-01-2024 Chronic Heart valve disorders (20 sources) Non-rheumatic mitral regurgitation ; Translations: [Nonrheumatic mitral (valve) prolapse] Onset: 09-03-2016 09-13-2017 Chronic Comment on above: Mitral valve replace ment w/ 29 mm Medtronic Porcine Valve and left atrial appendage clip Heart valve disorders (1 source) Non-rheumatic mitral valve prolapse; Translations: [Nonrheumatic mitral valve prolapse] Onset: 09-03-2016 09-13-2017 Hypertension with complications and secondary hypertension (1 source) Hypertensive heart disease with heart failure; Translations: [HYPERTENSIVE HEART DISEASE WITH HEART FAILURE] Onset: 08-14-2017 Chronic Immunizations and screening for infectious disease (11 sources) Suspected disease caused by 2019-nCoV; Translations: [Suspected COVID-19 virus infection] 08-19-2021 Episodic Mood disorders (8 sources) Depressive disorder; Translations: [Depression] Onset: 06-06-2014 09-13-2017 Chronic Mood disorders (1 source) Major depressive disorder, single episode, unspecified; Translations: [MAJOR DEPRESSIVE DISORDER, SINGLE EPISODE, UNSPECIFIED] Onset: 08-14-2017 Mycoses (5 sources) Candidal paronychia ; Translations: [Candidiasis of skin and nail] Onset: 03-27-2023 Episodic Nutritional deficiencies (6 sources) Vitamin deficiency; Translations: [Vitamin deficiency, unspecified] 01-21-2022 Episodic Osteoarthritis (2 sources) Unspecified osteoarthritis, unspecified site; Translations: [UNSPECIFIED OSTEOARTHRITIS, UNSPECIFIED SITE] Onset: 08-14-2017 Chronic Osteoporosis (4 sources) Osteoporosis; Translations: [Age-related osteoporosis without current pathological fracture] Onset: 02-07-2025 10-01-2024 Chronic Other and ill-defined heart disease (8 sources) Heart disease, unspecified; Translations: [Disorder of cardiac ventricle] Onset: 09-03-2016 09-13-2017 Chronic Other bone disease and musculoskeletal deformities (6 sources) Osteopenia; Translations: [Other specified disorders of bone density and structure, unspecified site] 08-10-2018 Episodic Other connective tissue disease (6 sources) Spasm; Translations: [Other muscle spasm] 08-19-2021 Episodic Other ear and sense organ disorders (4 sources) Tinnitus; Translations: [Tinnitus, unspecified ear] 09-09-2022 Episodic Other ear and sense organ disorders (1 source) Tinnitus, unspecified ear; Translations: [Tinnitus, unspecified] 01-12-2023 Episodic Other endocrine disorders (1 source) Hypoglycemia; Translations: [Hypoglycemia, unspecified] Onset: 03-27-2023 Chronic Other gastrointestinal disorders (2 sources) Dysphagia; Translations: [Dysphagia, unspecified] 10-01-2024 Episodic Other inflammatory condition of skin (10 sources) Psoriasis; Translations: [Psoriasis, unspecified] Onset: 09-13-2017 09-13-2017 Chronic Other lower respiratory disease (6 sources) Dyspnea; Translations: [Dyspnea, unspecified] 08-10-2018 Episodic Other nervous system disorders (6 sources) Chronic pain; Translations: [Other chronic pain] Onset: 11-05-2016 09-13-2017 Chronic Other nervous system disorders (4 sources) Carpal tunnel syndrome; Translations: [Carpal tunnel syndrome, unspecified upper limb] 09-09-2022 Chronic Other nervous system disorders (4 sources) Neuropathy; Translations: [Polyneuropathy, unspecified] 09-09-2022 Chronic Other nervous system disorders (1 source) Polyneuropathy, unspecified; Translations: [Mononeuritis of unspecified site] 09-09-2022 Chronic Other nervous system disorders (2 sources) Chorea; Translations: [Other abnormal involuntary movements] 10-01-2024 Episodic Other nervous system disorders (2 sources) Involuntary movement; Translations: [Unspecified abnormal involuntary movements] 07-11-2023 Episodic Other nervous system disorders (2 sources) Impairment of balance; Translations: [Other abnormalities of gait and mobility] 10-01-2024 Episodic Other non-traumatic joint disorders (10 sources) Arthritis; Translations: [Unspecified osteoarthritis, unspecified site] Onset: 01-24-2014 09-13-2017 Chronic Other nutritional; endocrine; and metabolic disorders (7 sources) Dyslipidemia; Translations: [Dyslipidemia] Onset: 09-13-2017 09-13-2017 Chronic Other upper respiratory infections (12 sources) Upper respiratory infection; Translations: [Acute upper respiratory infection, unspecified] 08-10-2018 Episodic Veronique-; endo-; and myocarditis; cardiomyopathy (1 source) Endocarditis, valve unspecified; Translations: [ENDOCARDITIS, VALVE UNSPECIFIED] Onset: 03-24-2017 Chronic Residual codes; unclassified (1 source) Problem situation; Translations: [Other problems related to lifestyle] Onset: 03-27-2023 Episodic Respiratory failure; insufficiency; arrest (1 source) Acute and chronic respiratory failure with hypoxia; Translations: [ACUTE AND CHRONIC RESPIRATORY FAILURE WITH HYPOXIA] Onset: 08-14-2017 Chronic Spondylosis; intervertebral disc disorders; other back problems (16 sources) Degeneration of lumbosacral intervertebral disc; Translations: [Degeneration of lumbar intervertebral disc] Onset: 04-04-2015 09-13-2017 Chronic Spondylosis; intervertebral disc disorders; other back problems (20 sources) Chronic back pain ; Translations: [Low back pain] Onset: 08-14-2017 09-13-2017 Episodic Substance-related disorders (1 source) Cocaine abuse, in remission; Translations: [History of cocaine abuse] Onset: 09-13-2017 09-13-2017 Superficial injury; contusion (6 sources) Injury of forehead; Translations: [Contusion of other part of head, initial encounter] 01-29-2024 Episodic Thyroid disorders (8 sources) Goiter; Translations: [Goiter] Onset: 06-13-2014 09-13-2017 Chronic Unclassified (2 sources) Unknown / UNK(Unknown) Onset: 10-18-2017 Unclassified (1 source) Microscopic colitis, unspecified; Translations: [MICROSCOPIC COLITIS, UNSPECIFIED] Onset: 03-24-2017 Unclassified (1 source) Pure hypercholesterolemia , unspecified; Translations: [PURE HYPERCHOLESTEROLEMIA , UNSPECIFIED] Onset: 03-24-2017 Unclassified (1 source) Gout, unspecified / M10.9(ICD-10) Onset: 02-25-2017 Unclassified (2 sources) L30.9 - Dermatitis, unspecified Unclassified (2 sources) M19.90 - Unspecified osteoarthritis, unspecified site Past or Other Problems Problem Classification Problem Date Documented Da te Episodic/Chronic Abdominal hernia (11 sources) Hiatal hernia; Translations: [Diaphragmatic hernia without obstruction or gangrene] Onset: 08-14-2017 09-13-2017 Episodic Acute and unspecified renal failure (1 source) Acute kidney failure, unspecified; Translations: [ACUTE KIDNEY FAILURE, UNSPECIFIED] Onset: 08-14-2017 Episodic Acute posthemorrhagic anemia (1 source) Acute posthemorrhagic anemia; Translations: [ACUTE POSTHEMORRHAGIC ANEMIA] Onset: 03-24-2017 Episodic Deficiency and other anemia (2 sources) Iron deficiency anemia, unspecified; Translations: [Iron deficiency anemia, unspecified] Onset: 08-23-2017 Episodic Fluid and electrolyte disorders (4 sources) Hypokalemia; Translations: [Hyperkalemia] Onset: 08-14-2017 Episodic Gastrointestinal hemorrhage (1 source) Chronic or unspecified gastric ulcer with hemorrhage; Translations: [CHRONIC OR UNSPECIFIED GASTRIC ULCER WITH HEMORRHAGE] Onset: 03-24-2017 Episodic Influenza (2 sources) Influenza due to unidentified influenza virus with other respiratory manifestations; Translations: [Flu due to unidentified influenza virus w oth resp manifest] Onset: 08-23-2017 Episodic Malaise and fatigue (1 source) Other malaise; Translations: [OTHER MALAISE] Onset: 03-24-2017 Episodic Medical examination/evaluation (2 sources) Encounter for other preprocedural examination; Translations: [Encounter for other preprocedural examination] Onset: 11-01-2017 Episodic Nonspecific chest pain (12 sources) Chest pain; Translations: [Other chest pain] Onset: 08-23-2017 09-13-2017 Episodic Other aftercare (2 sources) credit products officer (current) use of aspirin; Translations: [Other halfway (current) drug therapy] Onset: 03-24-2017 Episodic Other bone disease and musculoskeletal deformities (2 sources) Chondrocostal junction syndrome [Tietze]; Translations: [Chondrocostal junction syndrome [Tietze]] Onset: 08-23-2017 Episodic Other fractures (1 source) Collapsed vertebra, not elsewhere classified, thoracic region, initial encounter for fracture; Translations: [COLLAPSED VERTEBRA, NEC, THORACIC REGION, INIT] Onset: 03-24-2017 Episodic Other gastrointestinal disorders (2 sources) Dysphagia, unspecified; Translations: [Dysphagia, unspecified] Onset: 10-01-2024 Episodic Other liver diseases (2 sources) Nonspecific elevation of levels of transaminase and lactic acid dehydrogenase [LDH]; Translations: [Nonspec elev of levels of transamns & lactic acid dehydrgnse] Onset: 08-23-2017 Episodic Other lower respiratory disease (10 sources) Dyspnea on exertion; Translations: [Shortness of breath] Onset: 09-03-2016 09-13-2017 Episodic Other nervous system disorders (2 sources) Other acute postprocedural pain; Translations: [Other acute postprocedural pain] Onset: 11-02-2017 Episodic Other nervous system disorders (1 source) Other abnormal involuntary movements; Translations: [Other abnormal involuntary movements] Onset: 10-01-2024 Episodic Other nervous system disorders (1 source) Other abnormalities of gait and mobility; Translations: [Other abnormalities of gait and mobility] Onset: 10-01-2024 Episodic Other non-traumatic joint disorders (6 sources) Shoulder pain; Translations: [Pain in left shoulder] Onset: 11-05-2016 09-13-2017 Episodic Pleurisy; pneumothorax; pulmonary collapse (1 source) Pleural effusion, not elsewhere classified; Translations: [PLEURAL EFFUSION, NOT ELSEWHERE CLASSIFIED] Onset: 08-14-2017 Episodic Screening or history of mental health and substance abuse (1 source) Personal history of nicotine dependence; Translations: [PERSONAL HISTORY OF NICOTINE DEPENDENCE] Onset: 03-24-2017 Episodic Unclassified (10 sources) Personal history of other specified conditions; Translations: [History of cocaine abuse] Onset: 03-24-2017 09-13-2017 Episodic Unclassified (1 source) Cardiac Valve Problem Onset: 10-18-2017 Unclassified (5 sources) hx of right elbow sugrery 03-29-2022 Comment on above: 2016 Urinary tract infections (1 source) Urinary tract infection, site not specified; Translations: [URINARY TRACT INFECTION, SITE NOT SPECIFIED] Onset: 08-14-2017 Episodic Results Test Name Value Interpretation Reference Range Facility Internal Medicine Office Vis radha 05-10-2025 Internal Medicine Office Visit [facility] [address] [place] [address] OFFICE VISIT Date of Service: 05/10/25 MR#: [id number] Acct: [id number] Name: LEBLAS Acacia Rep #: [id number] : 1960 Provider: Dr. Alex solis MD Age/Sex: 65/F [place] [facility] [place] [facility] [place]: Signed Intake Vital Signs 10/01/24 10:48 05/10/25 14:07 Height 5 ft 7 in 5 ft 7 in Weight: 130 lb BMI 20.3 BP 118/78 Blood Pressure Location Lt brachial Position Sitting Respiration 16 Pulse 81 Pulse Source Monitor Temp 96.5 F L Temp Source Temporal Pulse Oximetry (%) 94 Oxygen Delivery Method room air Intake Visit Reasons: MED FU Chief Complaint: Follow-up chronic conditions [place] And Recausticizing Operator Required: No Accompanied by: Self Is patient in pain?: Yes (generalized left wrist) Pain scale (1-10): 8 Allergies linezolid (From Zyvox) Allergy (Unknown, Verified 05/10/25 13:46) Unknown vancomycin Allergy (Unknown, Verified 05/10/25 13:46) Unknown ibuprofen Adverse Reaction (Verified 05/10/25 13:46) Unknown tramadol Adverse Reaction (Verified 05/10/25 13:46) Unknown Medications ???Medication ???Instructions ???Recorded ???Confirmed ???Type aspirin 81 mg tablet,delayed 81 mg PO QDAY #90 tabs 02/02/22 Rx release (Adult Aspirin Regimen) budesonide-formoterol HFA 160 See Rx Instructions .Route 3 05/10/25 Rx mcg-4.5 mcg/actuation aerosol .COMPLEX #30.6 ea inhaler (Symbicort) albuterol sulfate 90 mcg/actuation 2 puff inhalation Q6H PRN 05/10/25 Rx aerosol inhaler shortness of breath or wheezing #8.5 grams calcium carbonate (Calcium 600) 600 mg PO BID #180 tabs 04/25/24 0 05/10/25 Rx cholecalciferol (vitamin D3) 50 50 mcg PO DAILY #90 caps 04/25/24 05/10/25 Rx mcg (2,000 unit) capsule denosumab 60 mg/mL subcutaneous 60 mg subcut [id number] #1 mL 05/10/25 Rx syringe (Prolia) metoprolol tartrate 25 mg tablet 50 mg (2 x 25 mg) PO DAILY #270 05/10/25 Rx tabs fluticasone propionate 50 See Rx Instructions .Route 5 05/10/25 Rx mcg/actuation nasal .COMPLEX #48 mL spray,suspension omeprazole 40 mg capsule,delayed See Rx Instructions .Route 5 05/10/25 Rx release .COMPLEX #90 caps allopurinol 100 mg tablet 100 mg PO DAILY #90 tabs 03/12/25 05/10/25 Rx gabapentin 300 mg capsule 300 mg PO BID #180 caps 04/05/25 0 05/10/25 Rx cyclobenzaprine 10 mg tablet 10 mg PO BID PRN muscle spasm #90 05/10/25 05/10/25 Rx tabs ketoconazole 2 % shampoo 1 applic topical 3XW #120 mL 05/1005/10/25 Rx levocetirizine 5 mg tablet (Xyzal) 5 mg PO QDAY PRN allergy symptom s 05/10/25 05/10/25 Rx #90 tabs triamcinolone acetonide 0.1 % 1 applic topical BID PRN rash #80 05/10/25 05/10/25 Rx topical ointment grams Have you fallen in the past year?: No PFS Medical History (Updated 05/10/25 @ 16:[address] Alex Chen MD) Allergies Arthritis Swallowing disorder Balance disorder Choreiform movements GERD (gastroesophageal reflux disease) Osteoporosis Health care maintenance Anxiety and depression Dermatitis Abnormal involuntary movement Flu vaccine need Neuropathy Tinnitus Lumbar radiculopathy Cervical radiculopathy Carpal tunnel syndrome Encounter for preventative adult health care examination Vitamin deficiency Muscle spasm Suspected COVID-19 virus infection URI (upper respiratory infection) hx of right elbow sugrery Asthma Osteoarthritis COPD (chronic obstructive pulmonary disease) Peptic ulcer disease Ulcerative colitis Non-rheumatic mitral regurgitation Gout Anemia Hypertension Surgical History History of back surgery H/O mitral valve replacement Family History Mother Diabetes Social History Smoking Status: Never smoker Tobacco: How many years used: 1 how long ago did patient quit smokin, 1ppd second hand exposure: Yes alcohol intake: current alcohol intake frequency: holidays/special occasions only substance use type: does not use what type of physical activity do you participate in: none HPI HPI Chief Complaint: Follow-up chronic conditions Details: BLAS LUJAN, is a 65 F who presents to the office today for follow-up of her chronic conditions. Also has some concerns. She reports a rash on her scalp which has been itchy. Has tried some [id number] measures without any significant improvement. No known precipitating factor. She also reports a prior history of psoriasis, has not seen dermatology lately. Status post fall in December, since then she reported almost generalized joint pain. Limitation of movement due to (more content not included)... Normal [facility] Office Visit Reporton 2024 Office Visit Report [facility] [address] [place] [address] OFFICE VISIT Date of Service: 02/01/25 MR#: [id number] Acct: [id number] Patient: BLAS LUJAN Rep #: [id number] : 1960 Provider: NINFA NURSE Age/Sex: 64/F [place] [facility] [place]: Signed Intake Vital Signs 10/01/24 10:48 Height 5 ft 7 in Intake Visit Reasons: PROLIA Chief Complaint: prolia injection Is patient in pain?: No Allergies linezolid (From Zyvox) Allergy (Unknown, Verified 02/01/25 10:48) Unknown vancomycin Allergy (Unknown, Verified 02/01/25 10:48) Unknown ibuprofen Adverse Reaction (Verified 02/01/25 10:48) Unknown tramadol Adverse Reaction (Verified 02/01/25 10:48) Unknown Medications ???Medication ???Instructions ???Recorded ???Confirmed ???Type aspirin 81 mg tablet,delayed 81 mg PO QDAY #90 tabs 02/02/22 Rx release (Adult Aspirin Regimen) budesonide-formoterol HFA 160 See Rx Instructions .Route 3 02/01/25 Rx mcg-4.5 mcg/actuation aerosol .COMPLEX #30.6 ea inhaler (Symbicort) hydrocodone-acetaminophen 5-325mg 1 tab PO Q6H PRN PRN Pain 3 days 01/21/24 02/01/25 Rx 5mg-325mg #12 TABLETS fluticasone propionate 50 See Rx Instructions .Route 4 02/01/25 Rx mcg/actuation nasal .COMPLEX #48 mL spray,suspension omeprazole 40 mg capsule,delayed See Rx Instructions .Route 4 02/01/25 Rx release .COMPLEX #90 caps albuterol sulfate 90 mcg/actuation 2 puff inhalation Q6H PRN 02/01/25 Rx aerosol inhaler shortness of breath or wheezing #8.5 grams calcium carbonate (Calcium 600) 600 mg PO BID #180 tabs 04/25/24 0 02/01/25 Rx cholecalciferol (vitamin D3) 50 50 mcg PO DAILY #90 caps 04/25/24 02/01/25 Rx mcg (2,000 unit) capsule denosumab 60 mg/mL subcutaneous 60 mg subcut [id number] #1 mL 02/01/25 Rx syringe (Prolia) gabapentin 300 mg capsule 300 mg PO BID #180 caps 11/12/24 0 02/01/25 Rx allopurinol 100 mg tablet 100 mg PO DAILY #90 tabs 12/17/24 02/01/25 Rx cyclobenzaprine 10 mg tablet 10 mg PO BID PRN muscle spasm #90 01/22/25 02/01/25 Rx tabs metoprolol tartrate 25 mg tablet 50 mg (2 x 25 mg) PO DAILY #270 02/01/25 Rx tabs Have you fallen in the past year?: No Nurse's Note: prolia shot given at this time without any signs or symptoms or reactions to injection at this time [facility] Office Procedures Injections Medication Given: Yes Is this a patient provided medication?: Yes Office Meds Prolia 60 mg/mL subcutaneous syringe Performing Provider: Alex Chen MD Performing Location: [facility] Administered by: Mami Pepper on 02/01/25 10:59 Dose Route Admin Location Dispensed Lot Number Expiration Date NDC Man ufacturer 60 mg subcut ASHLEE 1 mL [id number] 03/28/27 92544-413-98 [employer]GEN Assessment and Plan Assessment and Plan (1) Osteoporosis: Status: Chronic Orders: Orders Prolia Injection Today M81.0 - Age-related osteoporosis without current pathological fracture Clinical Quality Measures Falls Risk Screening/Assistive Devices Have you fallen in the past year?: No 02/01/25 1323 Date Alex Chen MD Cosigner Signature: Date (if applicable) CC: Normal [facility] CBC W/Diff, Automatedon 02-0 -2024 Absolute Lymph 1.33 X10 3/uL Normal 0.83-4.51 [facility] Comment on above: Performed By: #### L 100.0100, L506.1000, L500.4100, L501.1400, L500.4050 #### [facility] [address] [place], [address] Absolute Neut 5.7 X10 3/uL Normal 2.0-7.7 [facility] Comment on above: Performed By: #### L 100.0100, L506.1000, L500.4100, L501.1400, L500.4050 #### [facility] [address] [place], [address] Basophils/100 WBC (Bld) 0.7 % Normal 0-1 [facility] Comment on above: Performed By: #### L 100.0100, L506.1000, L500.4100, L501.1400, L500.4050 #### [facility] [address] [place], [address] Eosinophils/100 WBC (Bld) 4.3 % Normal 0-5 [facility] Comment on above: Performed By: #### L 100.0100, L506.1000, L500.4100, L501.1400, L500.4050 #### [facility] [address] [place], [address] Erythrocyte distribution width (RBC) [Ratio] 11.6 % Normal 11.6-14.6 [facility] Comment on above: Performed By: #### L 100.0100, L506.1000, L500.4100, L501.1400, L500.4050 #### [facility] [address] [place], [address] Hematocrit (Bld) [Volume fraction] 40.3 % Normal 37-47 [facility] Comment on above: Performed By: #### L 100.0100, L506.1000, L500.4100, L501.1400, L500.4050 #### [facility] [address] [place], [address] Hemoglobin (Bld) [Mass/Vol] 12.8 g/dL Normal 12.0-15.0 [facility] Comment on above: Performed By: #### L 100.0100, L506.1000, L500.4100, L501.1400, L500.4050 #### [facility] [address] [place], [address] IG% 0.200 Normal 0.0-0.9 [facility] Comment on above: Result Comment: IG% - Immature Granulocytes (promyelocytes, myelocytes and metamyelocytes) > 1% indicates that a LEFT SHIFT is Present. Performed By: #### L 100.0100, L506.1000, L500.4100, L501.1400, L500.4050 #### [facility] [address] [place], [address] Lymphocytes/100 WBC (Bld) 16.2 % Low 19-41 [facility] Comment on above: Performed By: #### L 100.0100, L506.1000, L500.4100, L501.1400, L500.4050 #### [facility] [address] [place], [address] MCH (RBC) [Entitic mass] 30.9 pg Normal 27.0-32.0 [facility] Comment on above: Performed By: #### L 100.0100, L506.1000, L500.4100, L501.1400, L500.4050 #### [facility] [address] [place], [address] MCHC (RBC) [Mass/Vol] 31.8 g/dL Low 32-36 [facility] Comment on above: Performed By: #### L 100.0100, L506.1000, L500.4100, L501.1400, L500.4050 #### [facility] [address] [place], [address] MCV (RBC) [Entitic vol] 97.3 fL Normal 81-99 [facility] Comment on above: Performed By: #### L 100.0100, L506.1000, L500.4100, L501.1400, L500.4050 #### [facility] [address] [place], [address] Monocytes/100 WBC (Bld) 8.9 % Normal 0-10 [facility] Comment on above: Performed By: #### L 100.0100, L506.1000, L500.4100, L501.1400, L500.4050 #### [facility] [address] [place], [address] Neutrophils/100 WBC (Bld) 69.7 % Normal 47-70 [facility] Comment on above: Performed By: #### L 100.0100, L506.1000, L500.4100, L501.1400, L500.4050 #### [facility] [address] [place], [address] Nucleated RBC (Bld) [#/Vol] 0 10*3/uL Normal 0-5 [facility] Comment on above: Performed By: #### L 100.0100, L506.1000, L500.4100, L501.1400, L500.4050 #### [facility] [address] [place], [address] Platelet mean volume (Bld) [Entitic vol] 10.5 fL Normal 6.2-12.0 [facility] Comment on above: Performed By: #### L 100.0100, L506.1000, L500.4100, L501.1400, L500.4050 #### [facility] [address] [place], [address] Platelets (Bld) [#/Vol] 228 10*3/uL Normal 150-450 [facility] Comment on above: Performed By: #### L 100.0100, L506.1000, L500.4100, L501.1400, L500.4050 #### [facility] [address] [place], [address] RBC (Bld) [#/Vol] 4.14 10*6/uL Low 4.2-5.4 [facility] Comment on above: Performed By: #### L 100.0100, L506.1000, L500.4100, L501.1400, L500.4050 #### [facility] [address] [place], [address] RDW SD 41.4 fl Normal 35.1-43.9 [facility] Comment on above: Performed By: #### L 100.0100, L506.1000, L500.4100, L501.1400, L500.4050 #### [facility] [address] [place], [address] WBC (Bld) [#/Vol] 8.2 10*3/uL Normal 4.4-11.0 [facility] Comment on above: Performed By: #### L 100.0100, L506.1000, L500.4100, L501.1400, L500.4050 #### [facility] [address] [place], [address] Comprehensive Metabolic Prof ilon 10-01-2024 Albumin [Mass/Vol] 3.9 g/dL Normal 3.2-5.0 [facility] Comment on above: Performed By: #### L 100.0100, L506.1000, L500.4100, L501.1400, L500.4050 #### [facility] [address] [place], [address] Albumin/Globulin [Mass ratio] 1.1 {ratio} Normal 0.9-2.4 [facility] Comment on above: Performed By: #### L 100.0100, L506.1000, L500.4100, L501.1400, L500.4050 #### [facility] [address] [place], [address] ALK P 68 U/L Normal 45-117 [facility] Comment on above: Performed By: #### L 100.0100, L506.1000, L500.4100, L501.1400, L500.4050 #### [facility] [address] [place], [address] ALT [Catalytic activity/Vol] 19 U/L Normal 13-56 [facility] Comment on above: Performed By: #### L 100.0100, L506.1000, L500.4100, L501.1400, L500.4050 #### [facility] [address] [place], [address] AST [Catalytic activity/Vol] 24 U/L Normal 15-37 [facility] Comment on above: Performed By: #### L 100.0100, L506.1000, L500.4100, L501.1400, L500.4050 #### [facility] [address] [place], [address] Bilirubin [Mass/Vol] 0.50 mg/dL Normal 0.20-1.00 [facility] Comment on above: Result Comment: For patients on eltrombopag therapy, use of Dimension [place] TBIL is not recommended. Performed By: #### L 100.0100, L506.1000, L500.4100, L501.1400, L500.4050 #### [facility] [address] [place], [address] BUN/CRE 14.7 RATIO Normal 10-20 [facility] Comment on above: Performed By: #### L 100.0100, L506.1000, L500.4100, L501.1400, L500.4050 #### [facility] [address] [place], [address] CA,Total 10.2 mg/dL High 8.5-10.1 [facility] Comment on above: Performed By: #### L 100.0100, L506.1000, L500.4100, L501.1400, L500.4050 #### [facility] [address] [place], [address] Chloride [Moles/Vol] 100 mmol/L Normal 98-107 [facility] Comment on above: Performed By: #### L 100.0100, L506.1000, L500.4100, L501.1400, L500.4050 #### [facility] [address] [place], [address] CO2 [Moles/Vol] 26.0 mmol/L Normal 21.0-32.0 [facility] Comment on above: Performed By: #### L 100.0100, L506.1000, L500.4100, L501.1400, L500.4050 #### [facility] [address] [place], [address] Creatinine [Mass/Vol] 0.82 mg/dL Normal 0.55-1.02 [facility] Comment on above: Result Comment: The validity of the calculated GFR GFRAA in patients over 70 years has not been determined. Clinical correlation is essential. Performed By: #### L 100.0100, L506.1000, L500.4100, L501.1400, L500.4050 #### [facility] [address] [place], [address] EST GFR - AA 90 mL/min Normal >60 [facility] Comment on above: Result Comment: Afri can Jordanian GFR Calc Performed By: #### L 100.0100, L506.1000, L500.4100, L501.1400, L500.4050 #### [facility] [address] [place], [address] GAP 10 Normal 5-15 [facility] Comment on above: Performed By: #### L 100.0100, L506.1000, L500.4100, L501.1400, L500.4050 #### [facility] [address] [place], [address] GFR/1.73 sq M.predicted among non-blacks MDRD (S/P/Bld) [Vol rate/Area] 75 mL/min/{1.73_m2} Normal >60 [facility] Comment on above: Result Comment: Non- GFR Calc Performed By: #### L 100.0100, L506.1000, L500.4100, L501.1400, L500.4050 #### [facility] [address] [place], [address] Globulin (S) [Mass/Vol] 3.6 g/dL Normal 2.2-4.2 [facility] Comment on above: Performed By: #### L 100.0100, L506.1000, L500.4100, L501.1400, L500.4050 #### [facility] [address] [place], [address] Glucose [Mass/Vol] 88 mg/dL Normal 74-106 [facility] Comment on above: Performed By: #### L 100.0100, L506.1000, L500.4100, L501.1400, L500.4050 #### [facility] [address] [place], [address] Potassium [Moles/Vol] 4.2 mmol/L Normal 3.5-5.1 [facility] Comment on above: Performed By: #### L 100.0100, L506.1000, L500.4100, L501.1400, L500.4050 #### [facility] [address] [place], [address] Sodium [Moles/Vol] 136 mmol/L Normal 136-145 [facility] Comment on above: Performed By: #### L 100.0100, L506.1000, L500.4100, L501.1400, L500.4050 #### [facility] [address] [place], [address] T PROT 7.5 g/dL Normal 6.4-8.2 [facility] Comment on above: Performed By: #### L 100.0100, L506.1000, L500.4100, L501.1400, L500.4050 #### [facility] [address] [place], [address] Urea nitrogen [Mass/Vol] 12 mg/dL Normal 7-18 [facility] Comment on above: Performed By: #### L 100.0100, L506.1000, L500.4100, L501.1400, L500.4050 #### [facility] [address] [place], [address] Internal Medicine Office Vis sandra 10-01-2024 Internal Medicine Office Visit [facility] [address] [place] [address] [place] [address] OFFICE VISIT Date of Service: 10/01/24 MR#: [id number] Acct: [id number] Name: BLAS LUJAN Acacia Rep #: [id number] : 1960 Provider: Dr. Alex solis MD Age/Sex: 64/F [place] [facility] [place] [facility] [place] Status: Signed Intake Vital Signs 04/25/24 13:32 08/20/24 12:13 10/01/24 10:48 Height 5 ft 7 in 5 ft 7 in 5 ft 7 in Weight: 123 lb 8 oz BMI 19.3 BP 138/98 H Blood Pressure Location Lt brachial Position Sitting Respiration 18 Pulse 64 Pulse Source Auscultation Temp 96 F L Temp Source Temporal Intake Visit Reasons: MED FU Chief Complaint: FU Chronic Conditions. Fell today and tuesday [employer] Required: No Accompanied by: Self Is patient in pain?: Yes (right sided pain headache ) Pain scale (1-10): 9 Pain Scale - Faces (1-5): 4 Allergies linezolid (From Zyvox) Allergy (Unknown, Verified 10/01/24 10:45) Unknown vancomycin Allergy (Unknown, Verified 10/01/24 10:45) Unknown ibuprofen Adverse Reaction (Verified 10/01/24 10:45) Unknown tramadol Adverse Reaction (Verified 10/01/24 10:45) Unknown Medications ???Medication ???Instructions ???Recorded ???Confirmed ???Type aspirin 81 mg tablet,delayed 81 mg PO QDAY #90 tabs 02/02/22 Rx release (Adult Aspirin Regimen) budesonide-formoterol HFA 160 See Rx Instructions .Route 3 10/01/24 Rx mcg-4.5 mcg/actuation aerosol .COMPLEX #30.6 ea inhaler (Symbicort) metoprolol tartrate 25 mg tablet 50 mg (2 x 25 mg) PO DAILY #270 10/01/24 Rx tabs hydrocodone-acetaminophen 5-325mg 1 tab PO Q6H PRN PRN Pain 3 days 01/21/24 10/01/24 Rx 5mg-325mg #12 TABLETS fluticasone propionate 50 See Rx Instructions .Route 4 10/01/24 Rx mcg/actuation nasal .COMPLEX #48 mL spray,suspension omeprazole 40 mg capsule,delayed See Rx Instructions .Route 4 10/01/24 Rx release .COMPLEX #90 caps albuterol sulfate 90 mcg/actuation 2 puff inhalation Q6H PRN 10/01/24 Rx aerosol inhaler shortness of breath or wheezing #8.5 grams calcium carbonate (Calcium 600) 600 mg PO BID #180 tabs 04/25/24 0 10/01/24 Rx cholecalciferol (vitamin D3) 50 50 mcg PO DAILY #90 caps 04/25/24 10/01/24 Rx mcg (2,000 unit) capsule gabapentin 300 mg capsule 300 mg PO BID #180 caps 05/03/24 0 10/01/24 Rx denosumab 60 mg/mL subcutaneous 60 mg subcut [id number] #1 mL 10/01/24 Rx syringe (Prolia) cyclobenzaprine 10 mg tablet 10 mg PO BID PRN muscle spasm #90 08/23/24 10/01/24 Rx tabs allopurinol 100 mg tablet 100 mg PO DAILY #90 tabs 09/24/24 10/01/24 Rx Patient : No Have you fallen in the past year?: Yes (multiple times) [facility] Medical History (Updated 10/01/24 @ 17:[address] Alex Chen MD) Swallowing disorder Balance disorder Choreiform movements GERD (gastroesophageal reflux disease) Osteoporosis Health care maintenance Anxiety and depression Dermatitis Abnormal involuntary movement Flu vaccine need Neuropathy Tinnitus Lumbar radiculopathy Cervical radiculopathy Carpal tunnel syndrome Encounter for preventative adult health care examination Vitamin deficiency Muscle spasm Suspected COVID-19 virus infection URI (upper respiratory infection) hx of right elbow sugrery Asthma Osteoarthritis COPD (chronic obstructive pulmonary disease) Peptic ulcer disease Ulcerative colitis Non-rheumatic mitral regurgitation Gout Anemia Hypertension Surgical History History of back surgery H/O mitral valve replacement Family History Mother Diabetes Social History Smoking Status: Never smoker Tobacco: How many years used: 1 how long ago did patient quit smokin, 1ppd second hand exposure: Yes alcohol intake: current alcohol intake frequency: holidays/special occasions only substance use type: does not use what type of physical activity do you participate in: none HPI HPI Chief Complaint: FU Chronic Conditions. Fell today and tuesday Details: BLAS LUJAN, is a 64 F who presents to the office today for follow-up of her chronic conditions. Also has some concerns. History of balance/gait abnormality. Was seen by neurology in the past and workup for Allegany's came back negative. Movement abnormality was thought to be due to tardive dyskinesia. She however has not followed up with neurology in a while. Worsening symptoms and over the last couple of days, has had some falls. These falls have been mechanical. She also reports sensation of food and medications getting stuck when she swallows. This has been ongoing for a month. Does (more content not included)... Normal [facility] Lipid Profileon 10-01-2024 Cholesterol [Mass/Vol] 208 mg/dL High 200 [facility] Comment on above: Result Comment: <200 mg/dL Desirable 200-240 mg/dL Borderline >240 mg/dL High Risk Performed By: #### L 100.0100, L506.1000, L500.4100, L501.1400, L500.4050 #### [facility] [address] [place], [address] Cholesterol in HDL [Mass/Vol] 71 mg/dL Normal [facility] Comment on above: Result Comment: The drugs N-Acetylcysteine and Metamizole may falsely depress this assay. Reference Range HDL <40 mg/dL Low HDL Cholesterol HDL >or= 60 mg/dL High HDL Cholesterol Performed By: #### L 100.0100, L506.1000, L500.4100, L501.1400, L500.4050 #### [facility] [address] [place], [address] Cholesterol in LDL [Mass/Vol] 108 mg/dL Normal 0-130 [facility] Comment on above: Performed By: #### L 100.0100, L506.1000, L500.4100, L501.1400, L500.4050 #### [facility] [address] [place], [address] Cholesterol in VLDL [Mass/Vol] 29 mg/dL Normal 5-40 [facility] Comment on above: Performed By: #### L 100.0100, L506.1000, L500.4100, L501.1400, L500.4050 #### [facility] [address] [place], [address] Triglyceride [Mass/Vol] 146 mg/dL Normal [facility] Comment on above: Result Comment: The drugs N-Acetylcysteine and Metamizole may falsely depress this assay. Serum Triglycerides Reference Interval Normal <150 mg/dL Borderline high 150 - 199 mg/dL High 200 - 499 mg/dL Very High > or = 500 mg/dL Performed By: #### L 100.0100, L506.1000, L500.4100, L501.1400, L500.4050 #### [facility] [address] [place], [address] Uric Acidon 10-01-2024 URIC 5.5 mg/dL Normal 2.6-6.0 [facility] Comment on above: Result Comment: The drugs N-Acetylcysteine and Metamizole may falsely depress this assay. Performed By: #### L 100.0100, L506.1000, L500.4100, L501.1400, L500.4050 #### [facility] [address] [place], [address] Vitamin D,25 Hydroxyon 10-01 Vitamin D 25-OH 75.1 ng/mL Normal [facility] Comment on above: Result Comment: Brandy min D 25(OH) Status Range Deficiency <20 ng/mL (50nmol/L) Insufficiency 20 - 30 ng/mL (50 - 75 nmol/L) Sufficiency 30 - 100 ng/mL (75 - 250 nmol/L) Toxicity >100 ng/mL (>250 nmol/L) Performed By: #### L 100.0100, L506.1000, L500.4100, L501.1400, L500.4050 #### [facility] [address] [place], [address] Office Visit Reporton 2023 Office Visit Report [facility] [address] [place] [address] OFFICE VISIT Date of Service: 06/08/24 MR#: [id number] Acct: [id number] Patient: BLAS LUJAN Rep #: [id number] : 1960 Provider: NINFA NURSE Age/Sex: 64/F [place] [facility] [place] Status: Signed Intake Vital Signs 04/25/24 13:32 Height 5 ft 7 in Weight: 128 lb 2 oz BMI 20.0 BP 118/66 Blood Pressure Location Lt brachial Position Sitting Respiration 16 Pulse 66 Pulse Source Monitor Temp 97.6 F L Temp Source Temporal Pulse Oximetry (%) 99 Oxygen Delivery Method room air Intake Visit Reasons: PROLIA Chief Complaint: prolia injection Allergies linezolid (From Zyvox) Allergy (Unknown, Verified 04/25/24 13:28) Unknown vancomycin Allergy (Unknown, Verified 04/25/24 13:28) Unknown ibuprofen Adverse Reaction (Verified 04/25/24 13:28) Unknown tramadol Adverse Reaction (Verified 04/25/24 13:28) Unknown Have you fallen in the past year?: No Office Procedures Injections Site of injection: Sub-Q Is this a patient provided medication?: No Office Meds Prolia 60 mg/mL subcutaneous syringe Performing Provider: Alex Chen MD Performing Location: [facility] Administered by: Rosaline Wheatley MA on 06/08/24 10:26 Dose Route Admin Location Dispensed Lot Number Expiration Date ND Man ufacturer 60 mg subcut left Sub Q 1 mL [id number] 07/28/26 70847-205-47 [employer] Assessment and Plan Assessment and Plan (1) Osteoporosis: Status: Acute Orders: Orders Prolia Injection Today M81.0 - Age-related osteoporosis without current pathological fracture Clinical Quality Measures Falls Risk Screening/Assistive Devices Have you fallen in the past year?: No 06/08/24 1219 Date Alex Chen MD Cosigner Signature: Date (if applicable) CC: Normal [facility] CT HEAD OR BRAIN W/O CONTRAS Ton 06-21-2023 CT HEAD OR BRAIN W/O CONTRAST ORIGINAL HISTORY: Involuntary movement COMPARISON: No TECHNIQUE: Routine non-contrast head CT with sagittal and coronal reconstructions This exam was performed according to our departmental dose optimization program, and includes the following measures where applicable: automated exposure control, adjustment of the mAs and/or kVp according to patient size and/or exam, and an iterative reconstruction algorithm. FINDINGS: The study is degraded by motion. There is a right craniotomy. The ventricles and sulci are mildly enlarged. There are no abnormal intra or extra-axial fluid collections within the limits of the examination saavedra-white matter differentiation is maintained. IMPRESSION: Limited by motion. Right craniotomy, otherwise unremarkable. Interpreted by: Willi Deshpande MD Preliminary Report By: Willi Deshpande MD Electronically signed By Willi Deshpande MD Dictated Date: 06/21/2023 9:24:35 AM Prelim Date: 06/21/2023 9:28:08 AM Sign Date: 06/21/2023 9:28:08 AM Ordering Provider: OPAL MEIER [facility] [place]20[place] [facility] [place] See Comments [facility]) Comment on above: Result Comment: Comp lete reference lab report scanned to EMR. Performed By: #### M [facility] #### [address] [address] Absolute lymphocyte countOrd ered By: Ricki Danielsone on 04-28-2023 Lymphocytes Auto (Unsp spec) [#/Vol] 1.25 10*3/uL 0.83-4.51 [facility] Basophil percentageOrdered B y: Ricki Peña on 04-28-2023 Basophils/100 WBC (Bld) 0.5 % 0-1 [facility] Chloride [Moles/Vol] 96 mmol/L 98-107 [facility] Eosinophils/100 WBC (Bld) 3.2 % 0-5 [facility] Glucose [Mass/Vol] 82 mg/dL 74-106 [facility] Neutrophils (Bld) [#/Vol] 9.7 10*3/uL 2.0-7.7 [facility] Neutrophils/100 WBC (Bld) 74.5 % 47-70 [facility] Potassium [Moles/Vol] 4.4 mmol/L 3.5-5.1 [facility] Comment on above: Moderate Hemolysis, Result may be falsely increased. Sodium [Moles/Vol] 131 mmol/L 136-145 [facility] WBC (Bld) [#/Vol] 13.1 10*3/uL 4.4-11.0 [facility] Blood erythrocytes count (nu mber/volume)Ordered By: Ricki Peña on 04-28-2023 RBC (Bld) [#/Vol] 4.79 10*6/uL 4.2-5.4 [facility] Blood hemoglobin measurement (mass/volume)Ordered By: Ricki Peña on 04-28-2023 Hemoglobin (Bld) [Mass/Vol] 15.3 g/dL 12.0-15.0 [facility] Blood lymphocytes/100 leukoc ytesOrdered By: Ricki Peña on 04-28-2023 Lymphocytes/100 WBC (Bld) 9.6 % 19-41 [facility] Blood manual differential co mment interpretation (narrative result)Ordered By: Ricki Peña on 04-28-2023 Manual differential comment Henry (Bld) [Interp] SCANNED [facility] Blood monocytes/100 leukocyt esOrdered By: Ricki Peña on 04-28-2023 Monocytes/100 WBC (Bld) 11.7 % 0-10 [facility] Blood platelet mean volumeOr dered By: Ricki Peña on 04-28-2023 Platelet mean volume (Bld) [Entitic vol] 9.6 fL 6.2-12.0 [facility] Determination of erythrocyte mean corpuscular volume (MCV)Ordered By: Ricki Peña on 04-28-2023 MCV (RBC) [Entitic vol] 94.2 fL 81-99 [facility] Hematocrit Auto (Bld) [Volum e fraction]Ordered By: Ricki Peña on 04-28-2023 Hematocrit (Bld) [Volume fraction] 45.1 % 37-47 [facility] INR in Blood by Coagulation assayOrdered By: Ricki Peña on 04-28-2023 INR Coag (Bld) [Relative time] 0.9 {INR} [facility] Laboratory - Chemistry and C hemistry - challengeOrdered By: Ricki Peña on 04-28-2023 CO2 [Moles/Vol] 25.0 mmol/L 21.0-32.0 [facility] Natriuretic peptide B (Bld) [Mass/Vol] 336.8 pg/mL 0-100 [facility] Urea nitrogen/Creatinine [Mass ratio] 10.8 mg/mg 10-20 [facility] Laboratory - CoagulationOrde red By: Ricki Peña on 04-28-2023 aPTT Coag (Bld) [Time] 25.7 s 24.1-36.2 [facility] PT Coag (PPP) [Time] 12.4 s 11.7-14.9 [facility] Laboratory - Hematology and Cell countsOrdered By: Ricki Peña on 04-28-2023 Erythrocyte distribution width (RBC) [Entitic vol] 42.4 fL 35.1-43.9 [facility] Erythrocyte distribution width (RBC) [Ratio] 12.1 % 11.6-14.6 [facility] Immature granulocytes/100 WBC (Bld) 0.500 % 0.0-0.9 [facility] Comment on above: IG% - Immature Granu locytes (promyelocytes, myelocytes and metamyelocytes) > 1% indicates that a LEFT SHIFT is Present. MCH (RBC) [Entitic mass] 31.9 pg 27.0-32.0 [facility] Nucleated RBC/100 WBC (Bld) [Ratio] 0 % 0-5 [facility] MCHC Auto (RBC) [Mass/Vol]Or dered By: Ricki Peña on 04-28-2023 MCHC (RBC) [Mass/Vol] 33.9 g/dL 32-36 [facility] No Panel InformationOrdered By: Ricki Peña on 04-28-2023 Estimated Creatinine Clearance Calc 42.74 ml/min [facility] Estimated GFR (MDRD) Amer 78 mL/min >60 [facility] Comment on above: GFR Calc Estimated GFR (MDRD) Non-Af Amer 65 mL/min >60 [facility] Comment on above: Non- GFR Calc Troponin I High Sensitivity 6 pg/mL 3.0-54.0 [facility] Comment on above: Please Note: New Johanne t Units and Gender Specific Reference Ranges. For more information see Policy Stat Procedure [place] High Sensitivity Troponin (TNIH) and attachments. Platelets bldOrdered By: Nazia Peña on 04-28-2023 Platelets (Bld) [#/Vol] 214 10*3/uL 150-450 [facility] Review by pathologistOrdered By: Ricki Peña on 04-28-2023 Pathologist review Henry (Unsp spec) [Interp] May foll [facility] Serum or plasma calcium jalen urement (mass/volume)Ordered By: Ricki Peña on 04-28-2023 Calcium [Mass/Vol] 10.1 mg/dL 8.5-10.1 [facility] Serum or plasma creatinine m easurement (mass/volume)Ordered By: Ricki Peña on 04-28-2023 Creatinine [Mass/Vol] 0.93 mg/dL 0.55-1.02 [facility] Comment on above: The validity of the calculated GFR & GFRAA in patients over 70 years has not been determined. Clinical correlation is essential. Serum or plasma urea nitroge n measurement (mass/volume)Ordered By: Ricki Peña on 04-28-2023 Urea nitrogen [Mass/Vol] 10 mg/dL 7-18 [facility] Thin prep Papanicolaou smear with manual screeningOrdered By: Ricki Peña on 04-28-2023 Thin prep Papanicolaou smear with manual screening 10 5-15 [facility] .Auto Diffon 03-27-2023 Basophil, Absolute 0.0 10 3/mcL Normal 0.0-0.2 [facility] ([place]) Comment on above: Performed By: #### T NINA, CBC, ANEU, ADELAINA, MDW, BMP, GFR #### [address] [address] Basophils/100 WBC (Bld) 0.3 % Normal 0.0-2.5 [facility] ([place]) Comment on above: Performed By: #### T NINA, CBC, ANEU, DARVIN, W, BMP, GFR #### [address] [address] Eosinophil, Absolute 0.9 10 3/mcL High 0.0-0.4 [facility] ([place]) Comment on above: Performed By: #### T NINA, CBC, ANEU, ADELAINA, MDW, BMP, GFR #### [address] [address] Eosinophils/100 WBC (Bld) 9.5 % High 0.0-7.0 [facility] ([place]) Comment on above: Performed By: #### T NINA, CBC, ANEU, ADIFF, MDW, BMP, GFR #### [address] [address] Lymphocyte, Absolute 1.5 10 3/mcL Normal 0.8-3.9 [facility] ([place]) Comment on above: Performed By: #### T NINA, CBC, ANEU, ADIFF, MDW, BMP, GFR #### [address] [address] Lymphocytes/100 WBC (Bld) 15.4 % Normal 10.0-50.0 [facility] ([place]) Comment on above: Performed By: #### T NINA, CBC, ANEU, ADIFF, MDW, BMP, GFR #### [address] [address] Monocyte, Absolute 0.9 10 3/mcL Normal 0.2-1.0 [facility] ([place]) Comment on above: Performed By: #### T NINA, CBC, ANEU, ADIFF, MDW, BMP, GFR #### [address] [address] Monocytes/100 WBC (Bld) 9.5 % Normal 1.7-13.0 [facility] ([place]) Comment on above: Performed By: #### T NINA, CBC, ANEU, ADIFF, MDW, BMP, GFR #### [address] [address] Neutrophils/100 WBC (Bld) 65.3 % Normal 37.0-80.0 [facility] ([place] Comment on above: Performed By: #### T NINA, CBC, ANEU, ADIFF, MDW, BMP, GFR #### [address] [address] .GFRon 03-27-2023 GFR Non- 65 ml/min/1.73sqm Normal [facility] ([place]) Comment on above: Result Comment: GFR Population mean for , Non- Americans Ages 20-29 = 116 mL/min/1.73 sq.m. Ages 30-39 = 107 mL/min/1.73 sq.m. Ages 40-49 = 99 mL/min/1.73 sq.m. Ages 50-59 = 93 mL/min/1.73 sq.m. Ages 60-69 = 85 mL/min/1.73 sq.m. Ages 70+ = 75 mL/min/1.73 sq.m. Chronic Kidney Disease: Less than 60 mL/min/1.73 square meters End Stage Renal Disease: Less than 15 mL/min/1.73 square meters Performed By: #### T NINA, CBC, ANEU, ADIFF, MDW, BMP, GFR #### [address] [address] GFR 79 ml/min/1.73sqm Normal [facility] ([place]) Comment on above: Result Comment: GFR Population mean for , Non- Americans Ages 20-29 = 116 mL/min/1.73 sq.m. Ages 30-39 = 107 mL/min/1.73 sq.m. Ages 40-49 = 99 mL/min/1.73 sq.m. Ages 50-59 = 93 mL/min/1.73 sq.m. Ages 60-69 = 85 mL/min/1.73 sq.m. Ages 70+ = 75 mL/min/1.73 sq.m. Chronic Kidney Disease: Less than 60 mL/min/1.73 square meters End Stage Renal Disease: Less than 15 mL/min/1.73 square meters Performed By: #### T NINA, CBC, ANEU, ADIFF, MDW, BMP, GFR #### [address] [address] .MDWon 03-27-2023 Monocyte Distribution Width 17.06 Normal 0.00-20.00 [facility] ([place]) Comment on above: Result Comment: For ED adult patients suspected of sepsis, MDW<=20.0 does not rule out sepsis or risk of sepsis Performed By: #### T NINA, CBC, ANEU, ADIFF, MDW, BMP, GFR #### [address] [address] .NEUABSon 03-27-2023 Neutrophil, Absolute 6.3 10 3/mcL High 2.9-6.2 [facility] ([place]) Comment on above: Performed By: #### T NINA, CBC, ANEU, ADIFF, MDW, BMP, GFR #### [place] [address] .Urinalysis Microscopic (AO) on 03-27-2023 UA Bacteria 2+ /hpf Abnormal [facility] ([place]) Comment on above: Performed By: #### T NINA, CBC, ANEU, ADIFF, MDW, BMP, GFR #### [place] [address] UA RBC 10-15 Abnormal None Seen [facility] ([place]) Comment on above: Performed By: #### T NINA, CBC, ANEU, ADIFF, MDW, BMP, GFR #### [place] [address] UA Squam Epithelial 0-5 Abnormal None Seen [facility] ([place]) Comment on above: Performed By: #### T NINA, CBC, ANEU, ADIFF, MDW, BMP, GFR #### [place] [address] UA WBC 15-25 Abnormal None Seen [facility] ([place]) Comment on above: Performed By: #### T NINA, CBC, ANEU, ADIFF, MDW, BMP, GFR #### [place] [address] Meghna 03-27-2023 Ethanol Level 35 mg/dL High 0-3 [facility] ([place]) Comment on above: Performed By: #### T NINA, CBC, ANEU, ADIFF, MDW, BMP, GFR #### [place] [address] BMPon 03-27-2023 BUN/Creatinine Ratio 5 ratio Low 7-27 [facility] ([place]) Comment on above: Performed By: #### T MARIANOHS, CBC, ANEU, ADIFF, MDW, BMP, GFR #### [address] [address] Calcium [Mass/Vol] 8.5 mg/dL Normal 8.4-10.2 [facility] ([place]) Comment on above: Performed By: #### T NINA, CBC, ANEU, ADIFF, MDW, BMP, GFR #### [address] [address] Chloride [Moles/Vol] 98 mmol/L Normal 98-107 [facility] ([place]) Comment on above: Performed By: #### T NINA, CBC, ANEU, ADIFF, MDW, BMP, GFR #### [address] [address] CO2 [Moles/Vol] 27 mmol/L Normal 23-31 [facility] ([place]) Comment on above: Performed By: #### T NINA, CBC, ANEU, ADIFF, MDW, BMP, GFR #### [address] [address] Creatinine [Mass/Vol] 0.88 mg/dL Normal 0.55-1.02 [facility] ([place]) Comment on above: Performed By: #### T NINA, CBC, ANEU, ADIFF, MDW, BMP, GFR #### [address] [address] Electrolyte Balance 9.0 mEq/L Normal 4.0-15.0 [facility] ([place]) Comment on above: Performed By: #### T NINA, CBC, ANEU, ADIFF, MDW, BMP, GFR #### [address] [address] Glucose [Mass/Vol] 62 mg/dL Low 80-115 [facility] ([place]) Comment on above: Performed By: #### T NINA, CBC, ANEU, ADIFF, MDW, BMP, GFR #### [address] [address] Potassium [Moles/Vol] 3.7 mmol/L Normal 3.5-5.1 [facility] ([place]) Comment on above: Performed By: #### T ROPHS, CBC, ANEU, ADIFF, MDW, BMP, GFR #### [address] [address] Sodium [Moles/Vol] 134 mmol/L Low 136-145 [facility] ([place]) Comment on above: Performed By: #### T MARIANOHS, CBC, ANEU, ADIFF, MDW, BMP, GFR #### [place] [id number] Urea nitrogen [Mass/Vol] 4 mg/dL Low 7-18 [facility] ([place]) Comment on above: Performed By: #### T NINA, CBC, ANEU, ADIFF, MDW, BMP, GFR #### [place] [id number] CBCon 03-27-2023 Erythrocyte distribution width (RBC) [Ratio] 12.8 % Normal 11.5-14.5 [facility] ([place]) Comment on above: Performed By: #### T NINA, CBC, ANEU, ADIFF, MDW, BMP, GFR #### [place] [address] Hematocrit (Bld) [Volume fraction] 41.9 % Normal 37.0-47.0 [facility] ([place]) Comment on above: Performed By: #### T NINA, CBC, ANEU, ADIFF, MDW, BMP, GFR #### [place] [id number] Hgb 14.1 G/dL Normal 12.0-16.0 [facility] ([place]) Comment on above: Performed By: #### T NINA, CBC, ANEU, ADIFF, MDW, BMP, GFR #### [place] [id number] MCH (RBC) [Entitic mass] 32.0 pg High 27.0-31.2 [facility] ([place]) Comment on above: Performed By: #### T MARIANOHS, CBC, ANEU, ADIFF, MDW, BMP, GFR #### [place] [id number] MCHC 33.5 G/dL Normal 33.0-37.0 [facility] ([place]) Comment on above: Performed By: #### T NINA, CBC, ANEU, ADELAINA, MDW, BMP, GFR #### [address] [address] MCV (RBC) [Entitic vol] 95.3 fL High 80.0-94.0 [facility] ([place]) Comment on above: Performed By: #### T NINA, CBC, ANEU, ADIFF, MDW, BMP, GFR #### [address] [address] Platelet 184 10 3/mcL Normal 130-400 [facility] ([place]) Comment on above: Performed By: #### T NINA, CBC, ANEU, ADELAINA, MDW, BMP, GFR #### [address] [address] Platelet mean volume (Bld) [Entitic vol] 7.3 fL Low 7.4-10.4 [facility] ([place]) Comment on above: Performed By: #### T NINA, CBC, ANEU, ADELAINA, MDW, BMP, GFR #### [address] [address] RBC 4.40 10 6/mcL Normal 4.20-5.40 [facility] ([place]) Comment on above: Performed By: #### Keshawn WOOD, CBC, ANEU, ADIFF, MDW, BMP, GFR #### [place] [phone] WBC 9.7 10 3/mcL Normal 4.6-10.8 [facility] ([place]) Comment on above: Performed By: #### T NINA, CBC, ANEU, ADIFF, MDW, BMP, GFR #### [address] [address] LABORATORYOrdered By: SYSTEM SYSTEM on 03-27-2023 Ethanol [Mass/Vol] 35 mg/dL Invalid Interpretation Code 0 - 3 mg/dL AO ADM SS Basophil, Absolute 0.0 103/mcL Invalid Interpretation Code 0.0 - 0.2 10^3/mcL AO Workflow SS Basophils/100 WBC (Bld) 0.3 % Invalid Interpretation Code 0.0 - 2.5 % AO Workflow SS Calcium [Mass/Vol] 8.5 mg/dL Invalid Interpretation Code 8.4 - 10.2 mg/dL AO ADM SS Chloride [Moles/Vol] 98 mmol/L Invalid Interpretation Code 98 - 107 mmol/L AO ADM SS CO2 [Moles/Vol] 27 mmol/L Invalid Interpretation Code 23 - 31 mmol/L AO ADM SS Creatinine [Mass/Vol] 0.88 mg/dL Invalid Interpretation Code 0.55 - 1.02 mg/dL AO ADM SS Electrolyte Balance 9.0 mEq/L Invalid Interpretation Code 4.0 - 15.0 mEq/L AO ADM SS Eosinophil, Absolute 0.9 103/mcL Invalid Interpretation Code 0.0 - 0.4 10^3/mcL AO Workflow SS Eosinophils/100 WBC (Bld) 9.5 % Invalid Interpretation Code 0.0 - 7.0 % AO Workflow SS Erythrocyte distribution width (RBC) [Ratio] 12.8 % Invalid Interpretation Code 11.5 - 14.5 % AO Workflow SS GFR/1.73 sq M.predicted among blacks MDRD (S/P/Bld) [Vol rate/Area] 79 ml/min/1.73sqm Invalid Interpretation Code AO Chemistry S Comment on above: Interpretive Data: GFR Population mean for , Non- Americans Ages 20-29 = 116 mL/min/1.73 sq.m. Ages 30-39 = 107 mL/min/1.73 sq.m. Ages 40-49 = 99 mL/min/1.73 sq.m. Ages 50-59 = 93 mL/min/1.73 sq.m. Ages 60-69 = 85 mL/min/1.73 sq.m. Ages 70+ = 75 mL/min/1.73 sq.m. Chronic Kidney Disease: Less than 60 mL/min/1.73 square meters End Stage Renal Disease: Less than 15 mL/min/1.73 square meters GFR/1.73 sq M.predicted among non-blacks MDRD (S/P/Bld) [Vol rate/Area] 65 ml/min/1.73sqm Invalid Interpretation Code AO Chemistry S Comment on above: Interpretive Data: GFR Population mean for , Non- Americans Ages 20-29 = 116 mL/min/1.73 sq.m. Ages 30-39 = 107 mL/min/1.73 sq.m. Ages 40-49 = 99 mL/min/1.73 sq.m. Ages 50-59 = 93 mL/min/1.73 sq.m. Ages 60-69 = 85 mL/min/1.73 sq.m. Ages 70+ = 75 mL/min/1.73 sq.m. Chronic Kidney Disease: Less than 60 mL/min/1.73 square meters End Stage Renal Disease: Less than 15 mL/min/1.73 square meters Glucose [Mass/Vol] 62 mg/dL Invalid Interpretation Code 80 - 115 mg/dL AO ADM SS Hematocrit (Bld) [Volume fraction] 41.9 % Invalid Interpretation Code 37.0 - 47.0 % AO Workflow SS Hemoglobin (Bld) [Mass/Vol] 14.1 G/dL Invalid Interpretation Code 12.0 - 16.0 G/dL AO Workflow SS Lymphocyte, Absolute 1.5 103/mcL Invalid Interpretation Code 0.8 - 3.9 10^3/mcL AO Workflow SS Lymphocytes/100 WBC (Bld) 15.4 % Invalid Interpretation Code 10.0 - 50.0 % AO Workflow SS MCH (RBC) [Entitic mass] 32.0 pg Invalid Interpretation Code 27.0 - 31.2 pg AO Workflow SS MCHC 33.5 G/dL Invalid Interpretation Code 33.0 - 37.0 G/dL AO Workflow SS MCV (RBC) [Entitic vol] 95.3 fL Invalid Interpretation Code 80.0 - 94.0 fL AO Workflow SS Monocyte distribution width Auto (Bld) [Entitic vol] 17.06 1 Invalid Interpretation Code 0.00 - 20.00 AO Workflow SS Comment on above: Result Comment: For ED adult patients suspected of sepsis, MDW<=20.0 does not rule out sepsis or risk of sepsis Monocyte, Absolute 0.9 103/mcL Invalid Interpretation Code 0.2 - 1.0 10^3/mcL AO Workflow SS Monocytes/100 WBC (Bld) 9.5 % Invalid Interpretation Code 1.7 - 13.0 % AO Workflow SS Neutrophil, Absolute 6.3 103/mcL Invalid Interpretation Code 2.9 - 6.2 10^3/mcL AO Workflow SS Neutrophils/100 WBC (Bld) 65.3 % Invalid Interpretation Code 37.0 - 80.0 % AO Workflow SS Platelet mean volume (Bld) [Entitic vol] 7.3 fL Invalid Interpretation Code 7.4 - 10.4 fL AO Workflow SS Platelets (Bld) [#/Vol] 184 103/mcL Invalid Interpretation Code 130 - 400 10^3/mcL AO Workflow SS Potassium [Moles/Vol] 3.7 mmol/L Invalid Interpretation Code 3.5 - 5.1 mmol/L AO ADM SS RBC (Bld) [#/Vol] 4.40 106/mcL Invalid Interpretation Code 4.20 - 5.40 10^6/mcL AO Workflow SS Sodium [Moles/Vol] 134 mmol/L Invalid Interpretation Code 136 - 145 mmol/L AO ADM SS Troponin I.cardiac DL <= 0.01 ng/mL [Mass/Vol] 5.5 ng/L Invalid Interpretation Code 0.0 - 51.4 ng/L AO ADM SS Urea nitrogen [Mass/Vol] 4 mg/dL Invalid Interpretation Code 7 - 18 mg/dL AO ADM SS Urea nitrogen/Creatinine [Mass ratio] 5 ratio Invalid Interpretation Code 7 - 27 ratio AO ADM SS WBC (Bld) [#/Vol] 9.7 103/mcL Invalid Interpretation Code 4.6 - 10.8 10^3/mcL AO Workflow SS LABORATORYOrdered By: Doug Grimaldo on 03-27-2023 Appearance (U) Clear (03/27/23 6:43 PM) Invalid Interpretation Code Clear AO Auto Urine SS Bacteria LM.HPF (Urine sed) [#/Area] 2 /[HPF] Invalid Interpretation Code AO Auto Urine SS Bilirubin Ql (U) Negative (03/27/23 6:43 PM) Invalid Interpretation Code Negative AO Auto Urine SS Color (U) Yellow (03/27/23 6:43 PM) Invalid Interpretation Code AO Auto Urine SS Glucose Test strip (U) [Mass/Vol] Negative Invalid Interpretation Code Negative AO Auto Urine SS Hemoglobin Auto test strip (U) [Mass/Vol] Small *ABN* (03/27/23 6:43 PM) Invalid Interpretation Code Negative AO Auto Urine SS Ketones Ql (U) Negative Invalid Interpretation Code Negative AO Auto Urine SS UA Leuk Est Moderate *ABN* (03/27/23 6:43 PM) Invalid Interpretation Code Negative AO Auto Urine SS UA Nitrite Negative (03/27/23 6:43 PM) Invalid Interpretation Code Negative AO Auto Urine SS UA pH 6.0 (03/27/23 6:43 PM) Invalid Interpretation Code 5.0 - 8.0 AO Auto Urine SS UA Protein Negative Invalid Interpretation Code Negative AO Auto Urine SS UA RBC 10-15 /HPF Invalid Interpretation Code None Seen AO Auto Urine SS UA Spec Grav 1.010 *ABN* (03/27/23 6:43 PM) Invalid Interpretation Code 1.015-1.02 5 AO Auto Urine SS UA Specimen Type Void (03/27/23 6:43 PM) Invalid Interpretation Code AO Auto Urine SS UA Squam Epithelial 0-5 /HPF Invalid Interpretation Code None Seen AO Auto Urine SS UA Urobilinogen 0.2 E.U./dL Invalid Interpretation Code 0.2-1.0 AO Auto Urine SS WBC LM.HPF (Urine sed) [#/Area] 15-25 /HPF Invalid Interpretation Code None Seen AO Auto Urine SS TROPHSon 03-27-2023 Troponin I High Sensitivity 5.5 ng/L Normal 0.0-51.4 [facility] ([place]) Comment on above: Performed By: #### T ROPHS, CBC, ANEU, DARVIN, W, BMP, GFR #### [address] [address] UAon 03-27-2023 Color (U) Yellow Normal [facility] ([place]) Comment on above: Performed By: #### U AMICAO, UA #### [address] [address] Glucose (U) [Mass/Vol] Negative Normal Negative [facility] ([place]) Comment on above: Performed By: #### U AMICAO, UA #### [address] [address] Ketones Ql (U) Negative Normal Negative [facility] ([place]) Comment on above: Performed By: #### U AMICAO, UA #### [address] [address] UA Appear Clear Normal Clear [facility] ([place] Comment on above: Performed By: #### U AMICAO, UA #### [address] [address] UA Blood Small Abnormal Negative [facility] ([place]) Comment on above: Performed By: #### U AMICAO, UA #### [place] [address] UA Leuk Est Moderate Abnormal Negative [facility] ([place] Comment on above: Performed By: #### U AMICAO, UA #### [place] [address] UA Nitrite Negative Normal Negative [facility] ([place] Comment on above: Performed By: #### U AMICAO, UA #### [place] [address] UA pH 6.0 Normal 5.0 - 8.0 [facility] ([place] Comment on above: Performed By: #### U AMICAO, UA #### [place] [address] UA Protein Negative Normal Negative [facility] ([place] Comment on above: Performed By: #### U AMICAO, UA #### [place] [address] UA Spec Grav 1.010 Abnormal 1.015-1.02 5 [facility] ([place] Comment on above: Performed By: #### U AMICAO, UA #### [place] [address] UA Specimen Type Void Normal [facility] ([place] Comment on above: Performed By: #### U AMICAO, UA #### [place] [address] UA Urobilinogen 0.2 E.U./dL Normal 0.2-1.0 [facility] ([place] Comment on above: Performed By: #### U AMICAO, UA #### [place] [address] Urobilinogen (U) [Mass/Vol] Negative Normal Negative [facility] ([place] Comment on above: Performed By: #### U AMICAO, UA #### [place] [id number] Absolute lymphocyte countOrd ered By: Dr. Chen on 09-09-2022 Lymphocytes Auto (Unsp spec) [#/Vol] 0.88 10*3/uL 0.83-4.51 [facility] Basophil percentageOrdered B y: Dr. Chen on 09-09-2022 Basophils/100 WBC (Bld) 0.6 % 0-1 [facility] Bilirubin [Mass/Vol] 0.50 mg/dL 0.20-1.00 [facility] Comment on above: For patients on eltr ombopag therapy, use of Dimension [place] TBIL is not recommended. Chloride [Moles/Vol] 103 mmol/L 98-107 [facility] Eosinophils/100 WBC (Bld) 3.3 % 0-5 [facility] Glucose [Mass/Vol] 139 mg/dL 74-106 [facility] Comment on above: Fasting Glucose resu lt greater than or equal to 126 mg/dL suggests DIABETES MELLITUS per A.D.A. criteria. Neutrophils (Bld) [#/Vol] 6.0 10*3/uL 2.0-7.7 [facility] Neutrophils/100 WBC (Bld) 76.1 % 47-70 [facility] Potassium [Moles/Vol] 3.8 mmol/L 3.5-5.1 [facility] Protein [Mass/Vol] 7.8 g/dL 6.4-8.2 [facility] Sodium [Moles/Vol] 136 mmol/L 136-145 [facility] WBC (Bld) [#/Vol] 7.8 10*3/uL 4.4-11.0 [facility] Blood erythrocytes count (nu mber/volume)Ordered By: Dr. Chen on 09-09-2022 RBC (Bld) [#/Vol] 4.58 10*6/uL 4.2-5.4 [facility] Blood hemoglobin measurement (mass/volume)Ordered By: Dr. Chen on 09-09-2022 Hemoglobin (Bld) [Mass/Vol] 14.6 g/dL 12.0-15.0 [facility] Blood lymphocytes/100 leukoc ytesOrdered By: Dr. Chen on 09-09-2022 Lymphocytes/100 WBC (Bld) 11.2 % 19-41 [facility] Blood monocytes/100 leukocyt esOrdered By: Dr. Chen on 09-09-2022 Monocytes/100 WBC (Bld) 8.3 % 0-10 [facility] Blood platelet mean volumeOr dered By: Dr. Chen on 09-09-2022 Platelet mean volume (Bld) [Entitic vol] 9.6 fL 6.2-12.0 [facility] Determination of erythrocyte mean corpuscular volume (MCV)Ordered By: Dr. Chen on 09-09-2022 MCV (RBC) [Entitic vol] 96.9 fL 81-99 [facility] Hematocrit Auto (Bld) [Volum e fraction]Ordered By: Dr. Chen on 09-09-2022 Hematocrit (Bld) [Volume fraction] 44.4 % 37-47 [facility] Laboratory - Chemistry and C hemistry - challengeOrdered By: Dr. Chen on 09-09-2022 ALP [Catalytic activity/Vol] 69 U/L 45-117 [facility] ALT [Catalytic activity/Vol] 24 U/L 13-56 [facility] CO2 [Moles/Vol] 26.0 mmol/L 21.0-32.0 [facility] Cobalamin (Vitamin B12) [Mass/Vol] 428 pg/mL 211-911 [facility] Free T4 [Mass/Vol] 0.86 ng/dL 0.76-1.46 [facility] Globulin (S) [Mass/Vol] 3.5 g/dL 2.2-4.2 [facility] Urea nitrogen/Creatinine [Mass ratio] 10.5 mg/mg 10-20 [facility] Laboratory - Hematology and Cell countsOrdered By: Dr. Chen on 09-09-2022 Erythrocyte distribution width (RBC) [Entitic vol] 44.1 fL 35.1-43.9 [facility] Erythrocyte distribution width (RBC) [Ratio] 12.3 % 11.6-14.6 [facility] Immature granulocytes/100 WBC (Bld) 0.500 % 0.0-0.9 [facility] Comment on above: IG% - Immature Granu locytes (promyelocytes, myelocytes and metamyelocytes) > 1% indicates that a LEFT SHIFT is Present. MCH (RBC) [Entitic mass] 31.9 pg 27.0-32.0 [facility] Nucleated RBC/100 WBC (Bld) [Ratio] 0 % 0-5 [facility] MCHC Auto (RBC) [Mass/Vol]Or dered By: Dr. Chen on 09-09-2022 MCHC (RBC) [Mass/Vol] 32.9 g/dL 32-36 [facility] No Panel InformationOrdered By: Dr. Chen on 09-09-2022 Estimated GFR (MDRD) Amer 86 mL/min >60 [facility] Comment on above: GFR Calc Estimated GFR (MDRD) Non-Af Amer 71 mL/min >60 [facility] Comment on above: Non- GFR Calc Thyroid Stimulating Hormone (TSH) 0.46 uIU/mL 0.358-3.74 [facility] Platelets bldOrdered By: Dr. Chen on 09-09-2022 Platelets (Bld) [#/Vol] 191 10*3/uL 150-450 [facility] Serum or plasma albumin jalen urement (mass/volume)Ordered By: Dr. Chen on 09-09-2022 Albumin [Mass/Vol] 4.3 g/dL 3.2-5.0 [facility] Serum or plasma albumin/glob ulin mass ratioOrdered By: Dr. Chen on 09-09-2022 Albumin/Globulin [Mass ratio] 1.2 {ratio} 0.9-2.4 [facility] Serum or plasma calcium jalen urement (mass/volume)Ordered By: Dr. Chen on 09-09-2022 Calcium [Mass/Vol] 9.3 mg/dL 8.5-10.1 [facility] Serum or plasma creatinine m easurement (mass/volume)Ordered By: Dr. Chen on 09-09-2022 Creatinine [Mass/Vol] 0.86 mg/dL 0.55-1.02 [facility] Comment on above: The validity of the calculated GFR & GFRAA in patients over 70 years has not been determined. Clinical correlation is essential. Serum or plasma urea nitroge n measurement (mass/volume)Ordered By: Dr. Chen on 09-09-2022 Urea nitrogen [Mass/Vol] 9 mg/dL 7-18 [facility] Thin prep Papanicolaou smear with manual screeningOrdered By: Dr. Chen on 09-09-2022 Thin prep Papanicolaou smear with manual screening 22 U/L 15-37 [facility] Thin prep Papanicolaou smear with manual screening 7 5-15 [facility] Absolute lymphocyte counton 01-21-2022 Lymphocytes Auto (Unsp spec) [#/Vol] 1.21 10*3/uL 0.83-4.51 [facility] Work Phone: Basophil percentageon 2021 Basophils/100 WBC (Bld) 1.3 % 0-1 [facility] Work Phone: Bilirubin [Mass/Vol] 0.60 mg/dL 0.20-1.00 [facility] Work Phone: Comment on above: For patients on eltr ombopag therapy, use of Dimension [place] TBIL is not recommended. Chloride [Moles/Vol] 101 mmol/L 98-107 [facility] Work Phone: Cholesterol [Mass/Vol] 241 mg/dL <200 [facility] Work Phone: Comment on above: <200 mg/dL Desirable 200-240 mg/dL Borderline >240 mg/dL High Risk Eosinophils/100 WBC (Bld) 4.3 % 0-5 [facility] Work Phone: Glucose [Mass/Vol] 84 mg/dL 74-106 [facility] Work Phone: Neutrophils (Bld) [#/Vol] 6.1 10*3/uL 2.0-7.7 [facility] Work Phone: Neutrophils/100 WBC (Bld) 71.1 % 47-70 [facility] Work Phone: Potassium [Moles/Vol] 3.9 mmol/L 3.5-5.1 [facility] Work Phone: Protein [Mass/Vol] 7.5 g/dL 6.4-8.2 [facility] Work Phone: Sodium [Moles/Vol] 135 mmol/L 136-145 [facility] Work Phone: Triglyceride [Mass/Vol] 111 mg/dL [facility] Work Phone: Comment on above: The drugs N-Acetylcy steine and Metamizole may falsely depress this assay.Serum Triglycerides Reference Interval Normal <150 mg/dL Borderline high 150 - 199 mg/dL High 200 - 499 mg/dL Very High > or = 500 mg/dL WBC (Bld) [#/Vol] 8.6 10*3/uL 4.4-11.0 [facility] Work Phone: Blood erythrocytes count (nu mber/volume)on 01-21-2022 RBC (Bld) [#/Vol] 4.61 10*6/uL 4.2-5.4 [facility] Work Phone: Blood hemoglobin measurement (mass/volume)on 01-21-2022 Hemoglobin (Bld) [Mass/Vol] 14.4 g/dL 12.0-15.0 [facility] Work Phone: Blood lymphocytes/100 leukoc yteson 01-21-2022 Lymphocytes/100 WBC (Bld) 14.0 % 19-41 [facility] Work Phone: Blood monocytes/100 leukocyt eson 01-21-2022 Monocytes/100 WBC (Bld) 9.0 % 0-10 [facility] Work Phone: Blood platelet mean volumeon 01-21-2022 Platelet mean volume (Bld) [Entitic vol] 9.8 fL 6.2-12.0 [facility] Work Phone: Determination of erythrocyte mean corpuscular volume (MCV)on 01-21-2022 MCV (RBC) [Entitic vol] 90.9 fL 81-99 [facility] Work Phone: Hematocrit Auto (Bld) [Volum e fraction]on 01-21-2022 Hematocrit (Bld) [Volume fraction] 41.9 % 37-47 [facility] Work Phone: Laboratory - Chemistry and C hemistry - challengeon 01-21-2022 ALP [Catalytic activity/Vol] 69 U/L 45-117 [facility] Work Phone: [phone] ALT [Catalytic activity/Vol] 35 U/L 13-56 [facility] Work Phone: [phone] CO2 [Moles/Vol] 21.0 mmol/L 21.0-32.0 [facility] Work Phone: [phone] Globulin (S) [Mass/Vol] 3.6 g/dL 2.2-4.2 [facility] Work Phone: Urea nitrogen/Creatinine [Mass ratio] 17.6 mg/mg 10-20 [facility] Work Phone: Laboratory - Hematology and Cell countson 01-21-2022 Erythrocyte distribution width (RBC) [Entitic vol] 40.6 fL 35.1-43.9 [facility] Work Phone: [phone] Erythrocyte distribution width (RBC) [Ratio] 12.2 % 11.6-14.6 [facility] Work Phone: Immature granulocytes/100 WBC (Bld) 0.300 % 0.0-0.9 [facility] Work Phone: Comment on above: IG% - Immature Granu locytes (promyelocytes, myelocytes and metamyelocytes) > 1% indicates that a LEFT SHIFT is Present. MCH (RBC) [Entitic mass] 31.2 pg 27.0-32.0 [facility] Work Phone: Nucleated RBC/100 WBC (Bld) [Ratio] 0 % 0-5 [facility] Work Phone: [phone] MCHC Auto (RBC) [Mass/Vol]on 01-21-2022 MCHC (RBC) [Mass/Vol] 34.4 g/dL 32-36 [facility] Work Phone: No Panel Informationon 01-21 Estimated GFR (MDRD) Amer 102 mL/min >60 [facility] Work Phone: Comment on above: GFR Calc Estimated GFR (MDRD) Non-Af Amer 85 mL/min >60 [facility] Work Phone: Comment on above: Non- GFR Calc Thyroid Stimulating Hormone (TSH) 0.37 uIU/mL 0.358-3.74 [facility] Work Phone: Vitamin D 25-Hydroxy 45.6 ng/mL [facility] Work Phone: Comment on above: Vitamin D 25(OH) Sta tus Range Deficiency <20 ng/mL (50nmol/L) Insufficiency 20 - 30 ng/mL (50 - 75 nmol/L) Sufficiency 30 - 100 ng/mL (75 - 250 nmol/L) Toxicity >100 ng/mL (>250 nmol/L) Platelets bldon 01-21-2022 Platelets (Bld) [#/Vol] 200 10*3/uL 150-450 [facility] Work Phone: Serum or plasma albumin jalen urement (mass/volume)on 01-21-2022 Albumin [Mass/Vol] 3.9 g/dL 3.2-5.0 [facility] Work Phone: Serum or plasma albumin/glob ulin mass ratioon 01-21-2022 Albumin/Globulin [Mass ratio] 1.1 {ratio} 0.9-2.4 [facility] Work Phone: Serum or plasma calcium jalen urement (mass/volume)on 01-21-2022 Calcium [Mass/Vol] 9.2 mg/dL 8.5-10.1 [facility] Work Phone: Serum or plasma cholesterol in HDL measurement (mass/volume)on 01-21-2022 Cholesterol in HDL [Mass/Vol] 79 mg/dL [facility] Work Phone: Comment on above: The drugs N-Acetylcy steine and Metamizole may falsely depress this assay. Reference Range HDL <40 mg/dL Low HDL Cholesterol HDL >or= 60 mg/dL High HDL Cholesterol Serum or plasma cholesterol in VLDL measurement (mass/volume)on 01-21-2022 Cholesterol in VLDL [Mass/Vol] 22 mg/dL 5-40 [facility] Work Phone: Serum or plasma creatinine m easurement (mass/volume)on 01-21-2022 Creatinine [Mass/Vol] 0.74 mg/dL 0.55-1.02 [facility] Work Phone: Comment on above: The validity of the calculated GFR & GFRAA in patients over 70 years has not been determined. Clinical correlation is essential. Serum or plasma low density lipoprotein (LDL) cholesterol measurement (mass/volume)on 01-21-2022 Cholesterol in LDL [Mass/Vol] 140 mg/dL 0-130 [facility] Work Phone: Serum or plasma urea nitroge n measurement (mass/volume)on 01-21-2022 Urea nitrogen [Mass/Vol] 13 mg/dL 7-18 [facility] Work Phone: Thin prep Papanicolaou smear with manual screeningon 01-21-2022 Thin prep Papanicolaou smear with manual screening 50 U/L 15-37 [facility] Work Phone: Thin prep Papanicolaou smear with manual screening 13 5-15 [facility] Work Phone: EXTERNAL LAB SCANon 12-13-19 18 EXTERNAL LAB SCAN Ordered by an unspec ified provider. Invalid Interpretation Code [facility] HEPATIC PANELon 12-12-2017 Albumin 3.9 g/dL Normal 3.9-5.0 [facility] Comment on above: Performed By: #### C REAT-EGFR, SEC CALL ####Main Lab - [id number] [place], [place] [address] Alkaline phosphatase (ALP) 93 U/L Normal 43-122 [facility] Comment on above: Performed By: #### C REAT-EGFR, SEC CALL ####Main Lab - [id number] [place], [place] [address] ALT/SGPT 14 U/L Normal 7-56 [facility] Comment on above: Performed By: #### C REAT-EGFR, SEC CALL ####Main Lab - [id number] [place], [place] [address] AST/SGOT 24 U/L Normal 8-39 [facility] Comment on above: Performed By: #### C REAT-EGFR, SEC CALL ####Main Lab - [id number] [place], [place] [address] Bilirubin (direct) 0.1 mg/dL Normal 0.0-0.6 [facility] Comment on above: Performed By: #### C REAT-EGFR, SEC CALL ####Main Lab - [id number] [place], [place] [address] Bilirubin (total) 0.5 mg/dL Normal 0.2-1.3 [facility] Comment on above: Performed By: #### C REAT-EGFR, SEC CALL ####Main Lab - [id number] [place], [place] [address] Globulin 3.3 g/dL Normal [facility] Comment on above: Performed By: #### C REAT-EGFR, SEC CALL ####Main Lab - [id number] [place], [place] [address] Protein 7.2 g/dL Normal 6.3-8.2 [facility] Comment on above: Performed By: #### C REAT-EGFR, SEC CALL ####Main Lab - [id number] [place], [place] [address] XR CHEST PA/APon 11-03-2017 XR CHEST PA/AP EXAMINATION:XR CHEST PA/APHISTORY:ORDERING SYSTEM PROVIDED HISTORY: post open heart surgery, TECHNOLOGIST PROVIDED HISTORY: Reason for exam: post open heart surgeryIllness/OtherCancer History: .Surgery, RadiationHistory: OHSEncounter Type: OngoingAdditional signs and symptoms:ORDERING SYSTEM PROVIDED DIAGNOSIS CODES:COMPARISON:Prior available dated 11/02/2017.FINDINGS:Cardiom egaly is redemonstrated with an endotracheal tube now removed. Feeding tube has been removed. [place] catheter overlies the right pulmonary artery stable in position. Left atrial appendage closure device is again seen. There is median sternotomy wires and pericardial surgical clips. No acute airspace disease. No large effusion. No pneumothorax. A mediastinal drain is also noted stable in position. No acute osseous finding.IMPRESSION:Interval removal of the endotracheal tube and feeding tube with stable positioning of other lines and support tubes as above. Cardiomegaly. No acute airspace disease or localizing pulmonary pathology.ASC/hffWorkstatio n ID: [id number] by: YAS MELENDEZ on TueNov 03, 2017 4:43:17 AM ESTTranscribed by: GAIL HODGES on TueNov 03, 2017 5:03:54 AM ESTFinalized by: YAS MELENDEZ on TueNov 03, 2017 5:03:54 AM EST Normal [facility] Comment on above: Order Comment: Reaso n for exam?:post open heart surgeryInjury/Trauma or Illness?:Illness/OtherHow long have you had these symptoms (acute/chronic)?:UnknownHistory of cancer?:.Surgeries, chemotherapy, or radiation?:OHSType of Exam?:OngoingAdditional signs and symptoms?: ECHOCARDIOGRAM TRANSESOPHAGE Aida 11-02-2017 ECHOCARDIOGRAM TRANSESOPHAGEAL Transesophageal Echocardiogram ___Patient: LE Roger [facility] Rec#: [id number] (Age): 1960(57y) Height: 160(cm)/62(in) Study Date: 11/02/2017 Weight: 53(kg)/117(lbs)Room#: OR BSA: 1.54 Type: Inpatient Loc: BERTHA Procedure RoomSex: F Reading: Sushant Umaña MD, FAC Referring: BILL GARIBAY B. History: MV disorder. Diagnosis: ICD-10-PCS Nonrheumatic mitral valve disorder,unspecified (I34.9) Mitral valve disorders (424.0) CPT Code(s): DOP ECHO COLOR CONCHIS GÉNESIS MAPG (26690) DOP ECHO COMPL(32037) BERTHA R-T IMG 2D W/PRB IMG ACQUISJ IR (89621) Summary: 3D images were obtained. A technically adequateintraoperative BERTHA study was performed. Esophageal intubation of the TEEprobe was performed by the anesthesiologist. Conclusions: There is normal left ventricular systolic function. There is prolapse of the A2 segment of the anterior mitral valveleaflet with severe (4+) posteriorly directed mitral regurgitation. There is no significant change compared to prior BERTHA report 09/12/17. Findings were discussed with Dr. Garibay in the OR.Findings Reason For Study:Mitral valve disorder. BERTHA Procedures:The BERTHA probe was passed in the operating room after the patient wassedated with general anesthesia. Left Ventricle:The left ventricular chamber size is borderline dilated. Borderlineconcentric left ventricular hypertrophy is observed. There is normalleft ventricular systolic function. The estimated ejection fraction is60-65%. Left Atrium:The left atrium is moderately dilated. The left atrial appendagevelocity is normal. Left atrial appendage peak emptying velocity 55cm/sec. No atrial septal defect is demonstrated by color Doppler. Apatent foramen ovale is not demonstrated by color Doppler. Right Ventricle:The right ventricular chamber size and systolic function are withinnormal limits. Right Atrium:The right atrial cavity size is normal. A prominent eustachian valve isnoted in the right atrium. Aortic Valve:The aortic valve is trileaflet. The aortic valve leaflets are mildlythickened. There is aortic annular calcification. There is nohemodynamically significant stenosis. There is no evidence of aorticregurgitation. Mitral Valve:The mitral valve leaflets appear myxomatous. There is moderate mitralvalve prolapse. There is prolapse of the A2 segment of the anteriormitral valve leaflet. (confirmed with 3D imaging) There is severemitral regurgitation. The mitral regurgitant jet is posteriorlydirected. Pulmonary vein flow reversal is present. Tricuspid Valve:The tricuspid valve leaflets are normal. There is mild tricuspidregurgitation. Unable to estimate the right ventricular systolicpressure. Pulmonic Valve:The pulmonic valve appears normal. There is mild pulmonicregurgitation. Aorta:There is evidence of grade 2 (extensive intimal thickening) atheromatousdisease in the transverse aorta. There is evidence of grade 2(extensive intimal thickening) atherotic disease in the descendingaorta. Pulmonary Artery:The main pulmonary artery is not well visualized. Electronically Signed at 11/02/2017 09:48:51 by: Sushant Umaña MD,FACC, FASE, FASLEÓN, FSCCT Normal [facility] XR CHEST PA/APon 11-02-2017 XR CHEST PA/AP EXAMINATION:XR CHEST PA/AP, 11/02/2017HISTORY:post open heart surgeryCOMPARISON:None.FIND INGS:The patient is mildly kyphotic and mildly rotated to the right. Sternotomy wires are noted. An endotracheal tube is in satisfactory position with its tip 4 cm above the christ. An NG tube is in satisfactory position with the side port in the distal half of the stomach and its tip extending beyond the bottom of this film. A right IJ [place] catheter has its tip projecting over the right main pulmonary artery pointed distally. A mediastinal drain is in place.The heart is moderately enlarged but exaggerated by rightward rotation. The lungs are well expanded and appear clear. No pneumothorax is seen.IMPRESSION:1. Support lines and tubes in satisfactory position.2. Cardiomegaly without acute cardiopulmonary disease.WPT/mjrWorkstation ID: [id number] by: PEYMAN HE on TueNov 02, 2017 2:48:35 PM ESTTranscribed by: CHRISTIE COOK on TueNov 02, 2017 3:30:27 PM ESTFinalized by: PEYMAN HE on TueNov 02, 2017 3:47:38 PM EST Normal [facility] Comment on above: Order Comment: Reaso n for exam?:post open heart surgeryInjury/Trauma or Illness?:Illness/OtherHow long have you had these symptoms (acute/chronic)?:UnknownHistory of cancer?:.Surgeries, chemotherapy, or radiation?:.Type of Exam?:UnknownAdditional signs and symptoms?:. PFT SPIROMETRYon 11-01-2017 PFT SPIROMETRY PFT SPIROMETRY INTERPRETATIONPFT INTERPRETATION INDICATIONS:Dx codes listed based upon CMS 2015 accepted ICD10 codesSOBSPIROMETRY:Spiromet ry demonstrates a mild obstruction. ADDITIONAL STATEMENTS / CONCLUSIONS:See event technician's [id number] ATS/ERS PFT Reference Sets (NHANES III) and Interpretation Guidelines in use.Finalized by: MARGARET MARROQUIN on TueNov 01, 2017 3:44:17 PM EST Normal [facility] REPORT OF OPERATIONon 2017 REPORT OF OPERATION [address] [place] [address] REPORT OF OPERATION : [id number] Signed Name: BLAS LUJAN MRUN: [id number] : 1960 Loc: 2S Age / Sex: 57/ F Adm Status: DIS IN Adm Date:10/01/17 Room/Bed: [facility] CAPSULE ENDOSCOPY DATE: 10/11/2017. REASON FOR REFERRAL: Iron deficiency anemia. PROCEDURE: After informed consent was obtained, the patient was able to swallow capsule endoscopy without difficulty. FINDINGS: The patient was noted to have some diffuse gastritis within the lower portion of the stomach, although no active bleeding or blood was seen. No abnormality was seen within the small bowel. SUMMARY AND RECOMMENDATIONS: Diffuse gastritis was seen was in the stomach, although no active bleeding. The small bowel was completely unremarkable. If he patient continues to drop her hemoglobin count, she may benefit from repeat upper endoscopy. Dictated By: Giuseppe Jama DO 10/12/17 0704 10/12/17 0704 Dictated Date/Time: 10/11/17 1246 Transcribed Date/Time: 10/11/17 1309 Normal [facility] DISCHARGE SUMMARYon 10-05-19 18 DISCHARGE SUMMARY [address] [place] [address] DISCHARGE SUMMARY : [id number] Signed Name: BLAS LUJAN MRUN: [id number] : 1960 Loc: 2S Age / Sex: 57/ F Adm Status: DIS IN Adm Date:10/01/17 Room/Bed: 228[facility] DATE: 10/05/2017 PRIMARY DIAGNOSES: Vasovagal syncope. SECONDARY DIAGNOSES: 1. Severe mitral regurgitation. 2. Acute kidney injury. 3. Hypertension. 4. Microcytic anemia. HOSPITAL COURSE: This patient presented with syncope, it seemed to be consistent with diarrhea. She did have some gastroenteritis. She has a history of ulcerative colitis as well and will followup with gastroenteritis soon. This led to dehydration and a syncopal episode. The patient also had acute kidney injury. This improved with IV fluids. She also worked with PT and OT. Additionally, she has severe mitral regurgitation that may make her more prone to develop syncope. She does have an appointment on the , she had to change it during this hospitalization, to get this evaluated. She will likely need surgical intervention for this, and I also consulted [facility] to talk to her about social and financial support for this. Also, she has a history of microcytic anemia as she had peptic ulcer disease. Dr. Simpson was on consult and did a capsule study on this patient and will followup with this patient regarding that. The patient is feeling better today other than having arthritis pain, but I did tell her since she was in pain management, I cannot discharge her on any narcotics, but will try to get her back in another pain management possibly. Also, she has had some back pain. There was concern for a fracture that we will get an MRI for as an outpatient. We will also try to arrange pain control for this as well. The patient will followup with me next week. PHYSICAL EXAMINATION: VITAL SIGNS: On discharge; temperature is 98.9, pulse is 84, respirations 18, blood pressure 91/62, 97% on room air. GENERAL: The patient is in no acute distress, alert and oriented x3. NECK: Supple. There is no JVD. LUNGS: Breath sounds are clear to auscultation bilaterally. HEART: Regular rate and rhythm with a systolic murmur. ABDOMEN: Soft, nontender, nondistended. EXTREMITIES: There is no edema or rashes. DISPOSITION: The patient will be discharged home today, will followup with me next week regarding these issues and we will try to arrange for MRI and pain management. Additionally, the patient will followup with cardiology at [facility] on 10/18/2017 to get assessed for surgery. Dictated By: Carmen Ford MD 10/17/17 0031 10/17/17 0031 Dictated Date/Time: 10/05/17 0913 Transcribed Date/Time: 10/05/17 0939 Normal [facility] MAGNESIUMon 10-05-2017 Magnesium 1.6 mg/dL Low 1.7-2.2 [facility] Comment on above: Performed By: #### C REAT-EGFR, SEC CALL ####Main Lab - [id number] [place], [place] [address] RENAL PANELon 10-05-2017 Albumin 3.0 g/dL Low 3.9-5.0 [facility] Comment on above: Performed By: #### C REAT-EGFR, SEC CALL ####Main Lab - [id number] [place], [place] [address] Anion gap 12 mmol/L Normal 9-18 [facility] Comment on above: Performed By: #### C REAT-EGFR, SEC CALL ####Main Lab - [id number] [place], [place] [address] BUN (urea nitrogen) 6 mg/dL Low 7-21 [facility] Comment on above: Performed By: #### C REAT-EGFR, SEC CALL ####Main Lab - [id number] [place] [address] BUN/Creatinine Ratio 8.7 Ratio Normal 5.0-42.0 [facility] Comment on above: Performed By: #### C REAT-EGFR, SEC CALL ####Main Lab - [id number] [place], [place] [address] Calcium 8.4 mg/dL Normal 8.4-10.2 [facility] Comment on above: Performed By: #### C REAT-EGFR, SEC CALL ####Main Lab - [id number] [place], [place] [address] Chloride 104 mmol/L Normal 98-107 [facility] Comment on above: Performed By: #### C REAT-EGFR, SEC CALL ####Main Lab - [id number] [place], [place] [address] CO2 27 mmol/L Normal 22-31 [facility] Comment on above: Performed By: #### C REAT-EGFR, SEC CALL ####Main Lab - [id number] [place], [place] [address] Creatinine 73.52 mg/dL Normal [facility] Comment on above: Result Comment: COCK CROFT-GAULT FORMULA 1973 Performed By: #### C REAT-EGFR, SEC CALL ####Main Lab - [id number] [place], [place] [address] Creatinine 0.69 mg/dL Low 0.80-1.30 [facility] Comment on above: Performed By: #### C REAT-EGFR, SEC CALL ####Main Lab - [id number] [place], [place] [address] eGFR (non-black) mL/min/{1.73_m2} Normal So [facility] Comment on above: Performed By: #### C REAT-EGFR, SEC CALL ####Main Lab - [id number] [place], [place] [address] Glucose mass conc 103 mg/dL High 70-99 [facility] Comment on above: Result Comment: The glucose range is based on recommendations from theAmerican Diabetes Association for fasting blood glucoserange. Performed By: #### C REAT-EGFR, SEC CALL ####Main Lab - [id number] [place], [place] [address] Phosphate 2.8 mg/dL Normal 2.5-4.5 [facility] Comment on above: Performed By: #### C REAT-EGFR, SEC CALL ####Main Lab - [id number] [place], [place] [address] Potassium molar conc 3.2 mmol/L Low 3.6-5.0 [facility] Comment on above: Performed By: #### C REAT-EGFR, SEC CALL ####Main Lab - [id number] [place] [address] Sodium 140 mmol/L Normal 137-145 [facility] Comment on above: Performed By: #### C REAT-EGFR, SEC CALL ####Main Lab - [id number] [place], [place] [address] PROGRESS NOTEon 10-04-2017 PROGRESS NOTE [address] [facility], [place] [address] PROGRESS NOTE : [id number] Signed Name: BLAS LUJAN MRUN: [id number] : 1960 Loc: 2S Age / Sex: 57/ F Adm Status: DIS IN Adm Date:10/01/17 Room/Bed: 228- DATE OF NOTE: 10/04/2017 SUBJECTIVE: Blas Lujan is resting comfortably. She denies any chest pain or shortness of breath. Her appetite is still poor. She is voiding without any difficulty. She is continuing on IV fluids. OBJECTIVE: VITAL SIGNS: Blood pressure is 96/68, pulse is 88, temperature 98.5. HEENT EXAM: Benign. LUNGS: Clear anteriorly. HEART: Regular rate. ABDOMEN: Soft. EXTREMITIES: Without pitting edema. LABS: There are no labs today. ASSESSMENT AND PLAN: 1. Acute renal failure due to dehydration. She is stable. Appetite is still poor. She will have labs in the morning. I encouraged her to try to eat as much as possible. 2. History of valvular heart disease. She is scheduled in a few weeks to have an evaluation for possible valvular surgery. Again, I encouraged her to improve her nutrition so she can tolerate any interventions planned. Dictated By: Paxton Kelly MD 10/15/17171810/15/171718 Dictated Date/Time: 10/04/172004 Transcribed Date/Time: 10/04/172052 Normal [facility] PROGRESS NOTE [address] [facility], [place] [address] PROGRESS NOTE : [id number] Signed Name: BLAS LUJAN MRUN: [id number] : 1960 Loc: 2S Age / Sex: 57/ F Adm Status: DIS IN Adm Date:10/01/17 Room/Bed: 228- DATE OF SERVICE: 10/04/2017. SUBJECTIVE: The patient this morning, states that she is feeling so much better, but she is having pain in her elbow, still having a little bit of abdominal pain. Had a capsule study yesterday. She was able to change her cardiology appointment to 10/18/2017. She is currently working with Therapy, but other than that, no other concerns. She should be able to go tomorrow. OBJECTIVE: VITAL SIGNS: Temperature is 98.3, pulse 84, respirations 18, blood pressure 91/64, 94% on room air. GENERAL: She is in no acute distress. She is alert and oriented. NECK: Supple. There is no JVD. CARDIAC: There is a systolic murmur, but regular rate and rhythm. LUNGS: Clear to auscultation bilaterally. ABDOMEN: Soft, nontender, nondistended. EXTREMITIES: Lower extremities, no edema. She does have some edema and tenderness of her right elbow. ASSESSMENT AND PLAN: 1. Syncope. Upon workup, likely etiology appears to be consistent with orthostatic in nature. The patient is currently continuing IV fluids. 2. Severe mitral regurgitation. The patient changed her appointment to 10/18/2017 and will followup for that. She may need surgical intervention. I consulted M to help with social issues just to make sure that the patient has adequate social and financial support to engage in this because she will need transportation to [place] and support and help with this procedure and just want to make sure that she gets adequate help. 3. Acute kidney injury, has now resolved, likely due to volume depletion and diarrhea. 4. Hypertension, currently controlled. Continue to monitor. 5. Microcytic anemia. Has a history of peptic ulcer disease. Dr. Simpson did a capsule endoscopy. DISPOSITION: The PillCam study was done and we will just assess the patient's elbow pain today and have QCM talk to the patient about social issues because I want to make sure she has adequate support for the upcoming valve evaluation and then the patient will likely be able to be discharged tomorrow. Dictated By: Carmen Ford MD 10/17/17 0030 10/17/17 0030 Dictated Date/Time: 10/04/17 0859 Transcribed Date/Time: 10/04/17 0914 Normal [facility] PROGRESS NOTE [address] [facility], [place] [address] PROGRESS NOTE : [id number] Signed Name: BLAS LUJAN MRUN: [id number] : 1960 Loc: 2S Age / Sex: 57/ F Adm Status: DIS IN Adm Date:10/01/17 Room/Bed: [facility] DATE OF NOTE: 10/03/2017 SUBJECTIVE: Blas Lujan says she is doing okay. She still feels weak. She does not have much of an appetite. She says she is voiding without any difficulty. She denies any chest pain or shortness of breath. OBJECTIVE: GENERAL: She is a frail-appearing woman. VITAL SIGNS: Blood pressure is 90/58, pulse is 82, temperature is 98.4. HEENT EXAM: Benign. Mucous membranes appear moist. NECK: There is no apparent JVD. LUNGS: Clear anteriorly. HEART: Regular rate. ABDOMEN: Soft. EXTREMITIES: Without pitting edema. LABS: This morning, show a sodium of 138, potassium is 3.7, BUN 18, creatinine 0.71. IMPRESSION AND PLAN: Acute renal failure. She is stable in this regard. Kidney function is returning to normal. Her oral intake is still quite poor. Therefore, I have elected to maintain IV fluids for now until her diet is more substantial. Dictated By: Paxton Kelly MD 10/15/17171710/15/171717 Dictated Date/Time: 10/03/172214 Transcribed Date/Time: 10/03/172231 Normal [facility] XR ELBOW, RIGHT AP/LATon XR ELBOW, RIGHT AP/LAT [facility] [address] [place] [address] Diagnostic Imaging Report : [id number] S[id number] MRUN: [id number] : 1960 Loc: 2S Age / Sex: 57 / F ADM Status: ADM IN ADM Date: 10/01/17 Room/Bed: [facility] Ordering Physician: Carmen Ford MD Procedure: XR ELBOW, RIGHT AP/LAT Order Number(s): [id number] Ordered Date: 10/04/17 Ordered Time: 08 EXAMINATION: 2 VIEWS OF THE RIGHT ELBOW 10/04/2017 9:55 am COMPARISON: Right elbow 03/09/2016. HISTORY: pain FINDINGS: AP and lateral exposures show similar periarticular osteopenia. Degenerative hypertrophic spurring about the radial head is re- demonstrated with dystrophic corticated calcifications in the periarticular soft tissues lateral to the radiohumeral joint, unchanged. Some hypertrophic bone proliferation near the ulnohumeral joint is re- demonstrated. Slight displaced anterior fat pad could reflect some joint effusion. Occult bony injury cannot be completely excluded in light of joint effusion. IMPRESSION: Degenerative findings are re- demonstrated as discussed above. There appears to be a anterior fat pad as noted above. Follow-up CT or MR imaging if continued symptomatology or clinical suspicion. Dictated By: Errol Vigil DO Dictated Date/Time: 10/04/17 1002 Signed By: Peyman Vigil DO Signed Date/Time: 10/04/17 1010 Transcribed Date/Time: 10/04/17 1006 Normal [facility] OT IP EVALUATIONon 8 OT IP EVALUATION [address] [place] [address] OT IP EVALUATION : [id number] Signed Name: BLAS LUJAN [facility]#: [id number] MRUN: [id number] : 1960 Loc: 2S Age / Sex: 57/ F Adm Status: ADM IN Adm Date:10/01/17 Room/Bed: [facility] OCCUPATIONAL THERAPY INPATIENT EVALUATION Date: 10/03/17 Time: 1011 Diagnosis: Metabolic Acidosis, Renal Failure, Syncope Treatment Diagnosis: Muscle wasting and atrophy, not elsewhere classified, unspecified site Referring Physician: Dr. Byers Orders as They Appear on Chart: OT eval and treat Precautions: Fall risk History of Present Illness: Pt was admitted with multiple syncopal episodes and diarrhea x2-3 days. She was found to be severely dehydrated. Past Medical History: HTN, valve problems, ejection fraction of 55%, moderate increase in left atrial size, severe mitral valve prolapse, mild tricuspid regurgitation, hyperlipidemia Home Environment: Pt lives alone in an apartment. Her significant other lives next door. Her apartment is one story with no AUBREY. She was (I) with ADL, using a shower chair. She has a cane by her bed in case she is unsteady when she wakes up, but typically does not use AD. She shares cooking and cleaning with her significant other. Bed Alarm: yes SUBJECTIVE Pain: 7/10 in her left shoulder; 8/10 in her left elbow. Pt reports gout in her shoulder and spurs in her elbow and reports she fell on her left arm a week ago. She reports pain in her heels, which she did not rate. They felt soft so pt was educated to keep them raised off the bed and nursing was notified. OBJECTIVE Current Functional Status Self Care: LB ADL: SBA Functional Mobility: Bed mobility: SBA Sit to stand: CGA (slightly unsteady) Physical Assessment Range of Motion: BUE: WFL Muscle Strength: Shoulder flexion/extension R: 4-/5 L: 4/5 Shoulder ab/adduction R: 4-/5 L: 4/5 Elbow flexion/extension: 4+/5 Grasp: Fair Sustained Activity Tolerance: Fair- Coordination: Grossly intact Sensation: Pt reports numbness and tingling in her fingertips Perception: Pt hearing and vision appear functional Cognition/Safety: Pt was oriented. She had slurred speech at times and could be difficult to understand, but when asked to repeat herself, would speak clearly. She answered questions and followed directions appropriately. ASSESSMENT Pt is a 57 year old female admitted with syncopal episodes. She is demonstrating decreased endurance and strength affecting her self care skills. She would benefit from OT to improve her independence and safety. PLAN Treatment to include the following: Ther ex, ther act, ADL, endurance, strengthening, functional transfers, pt education Time Frame/Duration of Treatment: 1-2 times per day, 5 days per week while inpatient Goals were established with the patient and are as follows: 1. Pt will complete at least 20 minutes of ADL tasks with 2 or less rest breaks to improve endurance for self care tasks. 2. Pt will complete UE strengthening tasks for at least 10 minutes with 2 or less rest breaks to improve UE strengthen and endurance for self care tasks. 3. Pt will demonstrate improved standing endurance to stand at sink for ADL skills for at least 5 minutes with no rest break. Discharge Recommendations: Pending progress with therapy services to determine if safe to discharge to home Evaluation Complexity Level: Low Impairment code and severity modifier chosen (All patients with Medicare): CURRENT: 20-39% impaired self care GOAL: 1-19% impaired self care Justification: Pt with deficits in self care related to decreased endurance and strength This patient will be discharged from OT services at [facility] when all goals are met, patient has a plateau in progress, per physicians order or refusal of therapy services 3 consecutive times. Thank you very much for requesting our participation in the advancement of this patient's care! Dictated By: Dagoberto CAMARENA/[email or web address] 10/03/17 1237 Dictated Date/Time: 10/03/17 1104 Transcribed Date/Time: 10/03/17 1104 Normal [facility] PROGRESS NOTEon 10-03-2017 PROGRESS NOTE [address] [facility], [place] [address] PROGRESS NOTE : [id number] Signed Name: BLAS LUJAN MRUN: [id number] : 1960 Loc: 2S Age / Sex: 57/ F Adm Status: DIS IN Adm Date:10/01/17 Room/Bed: [facility] DATE: 10/03/2017 SUBJECTIVE: The patient was admitted for syncope, was also found to have an elevated creatinine and found to be dehydrated. She is getting IV fluids. Also, she is getting a capsule study today to look into her anemia and abdominal pain. She states she is feeling somewhat better over all, but she is concerned about missing her appointment at [place] for her heart, but she will call them as soon as she can this morning to reschedule it. I encouraged her to do. OBJECTIVE: VITAL SIGNS: Temperature is 97.7, pulse 92, respirations 16, blood pressure 83/56, 98% on room air. GENERAL: She is in no acute distress, alert and oriented x3, somewhat anxious. NECK: Supple. There is no JVD. CARDIAC: She has a systolic murmur. Regular rate and rhythm. LUNGS: Clear to auscultation bilaterally. ABDOMEN: Soft, nontender, nondistended. LOWER EXTREMITIES: No pitting edema. ASSESSMENT AND PLAN: 1. Syncope. Upon workup appears to be orthostatic. The patient is getting IV fluids. May also be related to her underlying valvular disease. 2. Severe mitral regurgitation. Her appointment is tomorrow morning. The patient is getting a capsule test today. She is going to call to try to reschedule this appointment for later this week. 3. Acute kidney injury, now resolved, likely due to volume depletion and diarrhea. 4. Hypertension. Blood pressure is actually a little bit on the low side. We will continue to monitor that. 5. Microcytic anemia. The patient had an EGD where it was noted she had peptic ulcer disease. Dr. Simpson saw the patient. The patient is currently getting a capsule endoscopy. Stool guaiac was negative. DISPOSITION: The PillCam study is being done and I anticipate discharge tomorrow morning. The patient is going to reschedule her cardiology appointment and I will have her followup with me later on this week. Dictated By: Carmen Ford MD 10/17/17 0029 10/17/17 0029 Dictated Date/Time: 10/03/17 0900 Transcribed Date/Time: 10/03/17 0922 Normal [facility] PT Inpatient Evaluationon PT Inpatient Evaluation [address] [place] [id number] PT Inpatient Evaluation : [id number] Signed Name: BLAS LUJAN MRUN: [id number] : 1960 Loc: 2S Age / Sex: 57/ F Adm Status: DIS IN Adm Date:10/01/17 Room/Bed: [facility] Physical Therapy Inpatient Evaluation Date: 10/03/2017 Time: 1320 Diagnosis: Metabolic acidosis, renal failure, syncope. Treatment Diagnosis: Weakness, difficulty in walking, generalized pain. Referring Physician: Dr. Byers. Order: Physical therapy eval/treat. Precautions: Fall precautions. History of Present Illness: Patient is a 57-year-old female who had been experiencing diarrhea at home for 2-3 days prior to admission. On 10/01/2017, patient experienced several syncopal episodes. Patient complained of headache, neck pain with occasional chest pain. Patient was brought to the Emergency Room on 10/01/2017. Patient had severe dehydration with acute kidney injury. Patient was found to have a high potassium. Patient received a CT of the head that revealed no acute intracranial abnormality. Patient received a chest x-ray which revealed no acute abnormality. Patient was admitted to acute care on 10/01/2017. Patient is now referred to physical therapy. Past Medical History: HTN, mitral valve prolapse, hyperlipidemia, and tricuspid regurgitation. Refer to chart for further past medical history. Home Environment: Patient lives in a one-story apartment with her significant other living next door. Patient had one step to enter her apartment. Patient ambulated with a straight cane occasionally and occasionally held onto furniture depending on how she felt. Patient tub showered with use of shower seat and mat to the floor of the tub. Patient was able to dress herself. Significant other and patient shared the cooking and cleaning. Patient did not drive. Significant other transported her to appointments. Subjective: Patient is lying in bed upon therapist entering the room. Patient reports that she fell a couple weeks ago. Patient reports that she passed out multiple times on Tuesday but does not remember if she felt dizzy at the time. Patient presently complains of pain across her shoulders into her neck. Patient reports that she has gout to the left shoulder. Patient reports soreness to the right elbow. Patient reports a generalized pain in bilateral legs secondary to arthritis. Patient reports that she especially has pain to bilateral heels from lying in bed. Patient reports her fingers feel sore and swollen. Patient reports that she has had a headache since admission. Patient appears to be alert and oriented. Patient had slurred speech at times making it difficult to understand her. Patient required verbal encouragement to participate with physical therapy evaluation especially assessment of functional mobility. ROM: Active range of motion of bilateral upper extremities is within functional limits except for right elbow extension at 0-40 degrees. Active range of motion of bilateral lower extremities is plantar flexion 20 degrees, dorsiflexion to neutral left and limited right, knee flexion 100 degrees, knee extension within functional limits, hip flexion 60 degrees, and hip abduction 10 degrees. Patient tends to lie with left lower extremity internally rotated. Muscle Strength: Patient reports that she is right hand dominant. Muscle strength of right upper extremity is generally 4-/5 for shoulder flexors, elbow extensors to 4+/5 for elbow flexors and grossly hand grasp. Muscle strength of left upper extremity is generally 4/5 for shoulder flexors, elbow extensors to 4+/5 for elbow flexors and gross hand grasp. Muscle strength of bilateral lower extremities is generally 3+/5 for hip flexors, hip abductors, plantar flexors to 4-/5 for left dorsiflexors, bilateral knee flexors to 4/5 for knee extensors. Patient has poor endurance to repetitive activities with bilateral lower extremities. Neurological: Patient presently reports experiencing a headache since admission but does not rate on the pain scale. Patient reports pain across bilateral posterior shoulders into the neck region at 7-8/10 on the pain scale. Patient reports soreness in the right elbow at 8/10 on the pain scale. Patient reports generalized pain to bilateral lower extremities at 7/10 on pain scale. Patient reports pain in bilateral heels at 6/10 on the pain scale. Patient experiences numbness and tingling to bilateral hands. Fine motor coordination appears to be intact to bilateral hands but performed at a slow pace. Integumentary/Circulatory: Patient has an IV located in the left upper extremity. Cardiopulmonary: Refer to patient's past medical history. Patient is currently on telemetry. Functional Activity: Bed mobility: Standby assist with use of side rail, verbal and physical cues for safety. Supine to sit: Standby assist with use of side rail and verbal cueing for safety. Sit to supine: Standby assist to contact guard with verbal cueing to lie to side first. Sit to stand: Contact guard to minimal assist with verbal and physical cues for proper hand placement and safety. Patient tends to have a flexed posture upon standing with rounded shoulders and forward head. Patient is noted to be unsteady initially. Stand to sit: Contact guard with verbal and physical cues for proper hand placement and safety. Ambulation/Stairs: Patient stands at edge of bed without an assistive device with contact guard to minimal assist for safety. Patient tends to hold to the bed with one hand. Patient does not attempt ambulation at this time reporting that she is not feeling well. Balance: Standing static balance: Poor plus to fair minus. Endurance: Endurance for activity: Poor plus as patient limits herself. Patient Education: Patient is educated in the role of physical therapy, the benefits of mobility, safety techniques. Patient requires reinforcement during the evaluation. Physical Therapy Goals to be achieved in 5-7 days. 1. Increase strength and endurance of bilateral lower extremities to promote increased functional mobility with decreased risk of falls by performing range of motion/strengthening exercises to patient's tolerance. 2. Modified independent for bed mobility. 3. Modified independent for transfers supine to sit and sit to supine. 4. Standby assist for transfers sit to stand and stand to sit with increased safety and decreased risk of falls so patient is independent with functional transfers upon return home. 5. Standby assist to contact guard for ambulation at least 180 feet with proper gait components, proper safety techniques and an assistive device if appropriate to promote improved functional mobility with decreased risk of falls for return home. 6. Assess status on one step. Patient Goals: Patient's goals are to be stronger and to return home. Rehab Potential: Fair depending on patient's compliance with PT. Treatment Plan: Patient will be seen 1-2 treatment sessions per day 5 days per week and 1 treatment session per day one day per week consisting of therapeutic exercise bilateral lower extremities, bed mobility training, transfer training, and gait training. If patient has decreased gait components, posture and safety, patient may be instructed in the use of an appropriate assistive device. As patient's status improves, patient will be seen for assessment of status on one step. Treatment received this date: Patient is seen for initial evaluation and therapeutic activities in the p.m. Discharge Plan: Patient will be discharged from physical therapy upon achievement of above goals, physicians orders, and/or plateau in function. Patient will be further assessed for appropriate discharge needs. Post Treatment Positioning: Patient is lying in bed with bed alarm on. Patient has call light, phone, and tray table within reach. Nursing staff is aware of patient's position. Treatment Minutes: Evaluation and 8 minutes of therapeutic activities in the p.m. Evaluation Complexity Level: Moderate Impairment code and severity modifier chosen (All patient's with Medicare Medicare HMOs): CURRENT : G8978 CL 60-79% impaired GOAL: G8979 CJ 20-39% impaired Justification: Due to patient's symptoms, patient had syncopal episodes prior to admission. Patient now presents with generalized pain, decreased strength and endurance of lower extremities with decreased balance, decreased safety and decreased functional mobility compared to her prior levels. Patient requires skilled physical therapy intervention at this time. Thank you for this referral. Please feel free to call with any questions or concerns. Dictated By: Feliberto KIRAN [id number], Zamzam Courtney 10/09/17 1253 Dictated Date/Time: 10/03/17 1320 Transcribed Date/Time: 10/03/17 1722 Normal [facility] RENAL PANELon 10-03-2017 Albumin 3.2 g/dL Low 3.9-5.0 [facility] Comment on above: Performed By: #### C REAT-EGFR, SEC CALL ####Main Lab - [id number] [place], [place] [address] Anion gap 12 mmol/L Normal 9-18 [facility] Comment on above: Performed By: #### C REAT-EGFR, SEC CALL ####Main Lab - [id number] [place], [place] [address] BUN (urea nitrogen) 18 mg/dL Normal 7-21 [facility] Comment on above: Performed By: #### C REAT-EGFR, SEC CALL ####Main Lab - [id number] [place], [place] [address] BUN/Creatinine Ratio 25.4 Ratio Normal 5.0-42.0 [facility] Comment on above: Performed By: #### C REAT-EGFR, SEC CALL ####Main Lab - [id number] [place], [place] [address] Calcium 8.3 mg/dL Low 8.4-10.2 [facility] Comment on above: Performed By: #### C REAT-EGFR, SEC CALL ####Main Lab - [id number] [place], [place] [address] Chloride 105 mmol/L Normal 98-107 [facility] Comment on above: Result Comment: Inco nsisitent with previous results. Performed By: #### C REAT-EGFR, SEC CALL ####Main Lab - [id number] [place], [place] [address] CO2 25 mmol/L Normal 22-31 [facility] Comment on above: Performed By: #### C REAT-EGFR, SEC CALL ####Main Lab - [id number] [place], [place] [address] Creatinine 0.71 mg/dL Low 0.80-1.30 [facility] Comment on above: Performed By: #### C REAT-EGFR, SEC CALL ####Main Lab - [id number] [place], [place] [address] Creatinine 71.45 mg/dL Normal [facility] Comment on above: Result Comment: COCK CROFT-GAULT FORMULA 1972 Performed By: #### C REAT-EGFR, SEC CALL ####Main Lab - [id number] [place], [place] [address] eGFR (non-black) mL/min/{1.73_m2} Normal [facility] Comment on above: Performed By: #### C REAT-EGFR, SEC CALL ####Main Lab - [id number] [place], [place] [address] Glucose mass conc 95 mg/dL Normal 70-99 [facility] Comment on above: Result Comment: The glucose range is based on recommendations from theAmerican Diabetes Association for fasting blood glucoserange. Performed By: #### C REAT-EGFR, SEC CALL ####Main Lab - [id number] [place], [place] [address] Phosphate 3.0 mg/dL Normal 2.5-4.5 [facility] Comment on above: Performed By: #### C REAT-EGFR, SEC CALL ####Main Lab - [id number] [place], [place] [address] Potassium molar conc 3.7 mmol/L Normal 3.6-5.0 [facility] Comment on above: Performed By: #### C REAT-EGFR, SEC CALL ####Main Lab - [id number] [place], [place] [address] Sodium 138 mmol/L Normal 137-145 [facility] Comment on above: Performed By: #### C REAT-EGFR, SEC CALL ####Main Lab - [id number] [place], [place] [address] ANISOCYTOSISon 10-02-2017 Anisocytosis presence 3+ Abnormal [facility] Comment on above: Order Comment: @12/14: SMUDGE CELLS added. RFLXG = MORPH.@10/02/17656: GIANT PLATELETS added. RFLXG = MORPH.@10/02/17656: POLYCHROM added. RFLXG = MORPH.@10/02/17656: HYPERCHROM added. RFLXG = MORPH.@10/02/17656: HYPOCHROM added. RFLXG = MORPH.@10/02/17656: POIK added. RFLXG = MORPH.@10/02/17656: BASO STIP added. RFLXG = MORPH.@10/02/17656: ANISO added. RFLXG = MORPH.@10/02/17656: MICRO added. RFLXG = MORPH.@10/02/17656: MACRO added. RFLXG = MORPH.@10/02/17656: SPHERE added. RFLXG = MORPH.@10/02/17656: ELLIPTO added. RFLXG = MORPH.@10/02/17656: SIDEROCYTE added. RFLXG = MORPH.@02/04/18 0657: ADARSH BODIES added. RFLXG = MORPH.@10/02/1757: PELGER-HUET added. RFLXG = MORPH.@10/02/17656: ANA LILIA BODIES added. RFLXG = MORPH.@10/02/1757: SICKLE added. RFLXG = MORPH.@10/02/1757: TARGET added. RFLXG = MORPH.@10/02/1757: TEAR added. RFLXG = MORPH.@10/02/1757: OVAL added. RFLXG = MORPH.@10/02/1757: STOMATO added. RFLXG = MORPH.@10/02/17656: HELMET CELLS added. RFLXG = MORPH.@10/02/17656: HJ BODIES added. RFLXG = MORPH.@10/02/17656: TOXIC GRAN added. RFLXG = MORPH.@10/02/17656: TOXIC VAC added. RFLXG = MORPH.@10/02/17656: DOHLE BODIES added. RFLXG = MORPH.@10/02/17656: NIMISHA CELLS added. RFLXG = MORPH.@10/02/17656: CRENATED RBC added. RFLXG = MORPH.@10/02/17656: ACANTHO added. RFLXG = MORPH.@10/02/17656: ROLY RODS added. RFLXG = MORPH.@10/02/17656: ROULEAUX added. RFLXG = MORPH.@10/02/17656: SCHISTO added. RFLXG = MORPH.@10/02/17656: PARASITES added. RFLXG = MORPH. Performed By: #### C REAT-EGFR, SEC CALL ####Main Lab - [id number] [place], [place] [address] BASIC METABOLIC PANELon Anion gap 13 mmol/L Normal 9-18 [facility] Comment on above: Performed By: #### C REAT-EGFR, SEC CALL ####Main Lab - [id number] [place], [place] [address] BUN (urea nitrogen) 48 mg/dL High 7-21 [facility] Comment on above: Performed By: #### C REAT-EGFR, SEC CALL ####Main Lab - [id number] [place], [place] [address] BUN/Creatinine Ratio 44.9 Ratio High 5.0-42.0 [facility] Comment on above: Performed By: #### C REAT-EGFR, SEC CALL ####Main Lab - [id number] [place], [place] [address] Calcium 8.8 mg/dL Normal 8.4-10.2 [facility] Comment on above: Performed By: #### C REAT-EGFR, SEC CALL ####Main Lab - [id number] [place], [place] [address] Chloride 116 mmol/L High 98-107 [facility] Comment on above: Performed By: #### C REAT-EGFR, SEC CALL ####Main Lab - [id number] [place] [address] CO2 17 mmol/L Low 22-31 [facility] Comment on above: Performed By: #### C REAT-EGFR, SEC CALL ####Main Lab - [id number] [place] [address] Creatinine 1.07 mg/dL Normal 0.80-1.30 [facility] Comment on above: Performed By: #### C REAT-EGFR, SEC CALL ####Main Lab - [id number] [place] [address] Creatinine 47.41 mg/dL Normal [facility] Comment on above: Result Comment: COCK CROFT-GAULT FORMULA 1973 Performed By: #### C REAT-EGFR, SEC CALL ####Main Lab - [id number] [place] [address] eGFR (non-black) 53.000 mL/min/{1.73_m2} Normal [facility] Comment on above: Performed By: #### C REAT-EGFR, SEC CALL ####Main Lab - [id number] [place], [place] [address] Glucose mass conc 117 mg/dL High 70-99 [facility] Comment on above: Result Comment: The glucose range is based on recommendations from theAmerican Diabetes Association for fasting blood glucoserange. Performed By: #### C REAT-EGFR, SEC CALL ####Main Lab - [id number] [place], [place] [address] Potassium molar conc 4.1 mmol/L Normal 3.6-5.0 [facility] Comment on above: Performed By: #### C REAT-EGFR, SEC CALL ####Main Lab - [id number] [place] [address] Sodium 142 mmol/L Normal 137-145 [facility] Comment on above: Performed By: #### C REAT-EGFR, SEC CALL ####Main Lab - [id number] [place] [address] Age 57 Years Normal [facility] Comment on above: Performed By: #### C REAT-EGFR, SEC CALL ####Main Lab - [id number] [place] [address] Anion gap 11 mmol/L Normal 9-18 [facility] Comment on above: Order Comment: @ COL L DATE was changed from 10/01/17 to 10/02/17@ by [id number]. Old specimen was 0203:[id number]. Performed By: #### C REAT-EGFR, SEC CALL ####Main Lab - [id number] [place] [address] BUN (urea nitrogen) 61 mg/dL High 7-21 [facility] Comment on above: Order Comment: @ COL L DATE was changed from 10/01/17 to 10/02/17@ by [id number]. Old specimen was 0203:[id number]. Performed By: #### C REAT-EGFR, SEC CALL ####Main Lab - [id number] [place] [address] BUN/Creatinine Ratio 40.4 Ratio Normal 5.0-42.0 [facility] Comment on above: Order Comment: @ COL L DATE was changed from 10/01/17 to 10/02/17@ by [id number]. Old specimen was 0203:[id number]. Performed By: #### C REAT-EGFR, SEC CALL ####Main Lab - [id number] [place] [address] Calcium 8.6 mg/dL Normal 8.4-10.2 [facility] Comment on above: Order Comment: @ COL L DATE was changed from 10/01/17 to 10/02/17@ by [id number]. Old specimen was 0203:[id number]. Performed By: #### C REAT-EGFR, SEC CALL ####Main Lab - [id number] [place], [place] [address] Chloride 119 mmol/L High 98-107 [facility] Comment on above: Order Comment: @ COL L DATE was changed from 10/01/17 to 10/02/17@ by [id number]. Old specimen was 0203:[id number]. Performed By: #### C REAT-EGFR, SEC CALL ####Main Lab - [id number] [place], [place] [address] CO2 15 mmol/L Low 22-31 [facility] Comment on above: Order Comment: @ COL L DATE was changed from 10/01/17 to 10/02/17@ by [id number]. Old specimen was 0203:[id number]. Performed By: #### C REAT-EGFR, SEC CALL ####Main Lab - [id number] [place], [place] [address] Creatinine 1.51 mg/dL High 0.80-1.30 [facility] Comment on above: Order Comment: @ COL L DATE was changed from 10/01/17 to 10/02/17@ by [id number]. Old specimen was 0203:[id number]. Performed By: #### Chyna REAT-EGFR, SEC CALL ####Main Lab - [id number] [place], [place] [address] Creatinine 33.59 mg/dL Normal [facility] Comment on above: Order Comment: @ COL L DATE was changed from 10/01/17 to 10/02/17@ by [id number]. Old specimen was 0203:[id number]. Result Comment: COCK CROFT-GAULT FORMULA 1973 Performed By: #### C REAT-EGFR, SEC CALL ####Main Lab - [id number] [place], [place] [address] eGFR (non-black) 35.000 mL/min/{1.73_m2} Normal [facility] Comment on above: Order Comment: @ COL L DATE was changed from 10/01/17 to 10/02/17@ by [id number]. Old specimen was 0203:[id number]. Performed By: #### C REAT-EGFR, SEC CALL ####Main Lab - [id number] [place], [place] [address] Glucose mass conc 69 mg/dL Low 70-99 [facility] Comment on above: Order Comment: @ COL L DATE was changed from 10/01/17 to 10/02/17@ by [id number]. Old specimen was 0203:[id number]. Result Comment: The glucose range is based on recommendations from theAmerican Diabetes Association for fasting blood glucoserange. Performed By: #### C REAT-EGFR, SEC CALL ####Main Lab - [id number] [place] [address] Potassium molar conc 4.2 mmol/L Normal 3.6-5.0 [facility] Comment on above: Order Comment: @ COL L DATE was changed from 10/01/17 to 10/02/17@ by [id number]. Old specimen was 0203:[id number]. Result Comment: Inco nsisitent with previous results. Performed By: #### C REAT-EGFR, SEC CALL ####Main Lab - [id number] [place] [address] Sodium 141 mmol/L Normal 137-145 [facility] Comment on above: Order Comment: @ COL L DATE was changed from 10/01/17 to 10/02/17@ by [id number]. Old specimen was 0203:[id number]. Performed By: #### C REAT-EGFR, SEC CALL ####Main Lab - [id number] [place], [place] [address] Age 57 Years Normal [facility] Comment on above: Order Comment: @ COL L DATE was changed from 10/01/17 to 10/02/17@ by [id number]. Old specimen was 0203:[id number]. Performed By: #### C REAT-EGFR, SEC CALL ####Main Lab - [id number] [place], [place] [address] NIMISHA CELLSon 10-02-2017 NIMISHA CELLS 1+ Abnormal [facility] Comment on above: Order Comment: @12/14: SMUDGE CELLS added. RFLXG = MORPH.@10/02/17656: GIANT PLATELETS added. RFLXG = MORPH.@10/02/17656: POLYCHROM added. RFLXG = MORPH.@10/02/17656: HYPERCHROM added. RFLXG = MORPH.@10/02/17656: HYPOCHROM added. RFLXG = MORPH.@10/02/17656: POIK added. RFLXG = MORPH.@10/02/17656: BASO STIP added. RFLXG = MORPH.@10/02/17656: ANISO added. RFLXG = MORPH.@10/02/17656: MICRO added. RFLXG = MORPH.@10/02/17656: MACRO added. RFLXG = MORPH.@10/02/17656: SPHERE added. RFLXG = MORPH.@10/02/17656: ELLIPTO added. RFLXG = MORPH.@10/02/17656: SIDEROCYTE added. RFLXG = MORPH.@10/02/17656: ADARSH BODIES added. RFLXG = MORPH.@10/02/17656: PELGER-HUET added. RFLXG = MORPH.@10/02/17656: ANA LILIA BODIES added. RFLXG = MORPH.@10/02/17656: SICKLE added. RFLXG = MORPH.@10/02/17656: TARGET added. RFLXG = MORPH.@10/02/17656: TEAR added. RFLXG = MORPH.@10/02/17656: OVAL added. RFLXG = MORPH.@10/02/17656: STOMATO added. RFLXG = MORPH.@10/02/17656: HELMET CELLS added. RFLXG = MORPH.@10/02/17656: HJ BODIES added. RFLXG = MORPH.@10/02/17656: TOXIC GRAN added. RFLXG = MORPH.@10/02/17656: TOXIC VAC added. RFLXG = MORPH.@10/02/17656: DOHLE BODIES added. RFLXG = MORPH.@10/02/17656: NIMISHA CELLS added. RFLXG = MORPH.@10/02/17656: CRENATED RBC added. RFLXG = MORPH.@10/02/17656: ACANTHO added. RFLXG = MORPH.@10/02/17656: ROLY RODS added. RFLXG = MORPH.@10/02/17656: ROULEAUX added. RFLXG = MORPH.@10/02/17656: SCHISTO added. RFLXG = MORPH.@10/02/17656: PARASITES added. RFLXG = MORPH. Performed By: #### C REAT-EGFR, SEC CALL ####Main Lab - [id number] [place] [address] CBC WITH AUTO DIFFon 018 Basophils Auto #/vol (Bld) 0.1 10 3/uL Normal 0.0-0.2 [facility] Comment on above: Order Comment: @12/14: SMUDGE CELLS added. RFLXG = MORPH.@10/02/17656: GIANT PLATELETS added. RFLXG = MORPH.@10/02/17656: POLYCHROM added. RFLXG = MORPH.@10/02/17656: HYPERCHROM added. RFLXG = MORPH.@10/02/17656: HYPOCHROM added. RFLXG = MORPH.@10/02/17656: POIK added. RFLXG = MORPH.@10/02/17656: BASO STIP added. RFLXG = MORPH.@10/02/17656: ANISO added. RFLXG = MORPH.@10/02/17656: MICRO added. RFLXG = MORPH.@10/02/17656: MACRO added. RFLXG = MORPH.@10/02/17656: SPHERE added. RFLXG = MORPH.@10/02/17656: ELLIPTO added. RFLXG = MORPH.@10/02/17656: SIDEROCYTE added. RFLXG = MORPH.@10/02/17656: ADARSH BODIES added. RFLXG = MORPH.@10/02/17656: PELGER-HUET added. RFLXG = MORPH.@10/02/17656: ANA LILIA BODIES added. RFLXG = MORPH.@10/02/17656: SICKLE added. RFLXG = MORPH.@10/02/17656: TARGET added. RFLXG = MORPH.@10/02/17656: TEAR added. RFLXG = MORPH.@10/02/17656: OVAL added. RFLXG = MORPH.@10/02/17656: STOMATO added. RFLXG = MORPH.@10/02/17656: HELMET CELLS added. RFLXG = MORPH.@10/02/17656: HJ BODIES added. RFLXG = MORPH.@10/02/17656: TOXIC GRAN added. RFLXG = MORPH.@10/02/17656: TOXIC VAC added. RFLXG = MORPH.@10/02/17656: DOHLE BODIES added. RFLXG = MORPH.@10/02/17656: NIMISHA CELLS added. RFLXG = MORPH.@10/02/17656: CRENATED RBC added. RFLXG = MORPH.@10/02/17656: ACANTHO added. RFLXG = MORPH.@10/02/17656: ROLY RODS added. RFLXG = MORPH.@10/02/17656: ROULEAUX added. RFLXG = MORPH.@10/02/17656: SCHISTO added. RFLXG = MORPH.@10/02/17656: PARASITES added. RFLXG = MORPH. Performed By: #### C REAT-EGFR, SEC CALL ####Main Lab - [id number] [place], [place] [address] Basophils/100 WBC Auto (Bld) 1.7 % High 0.0-1.0 [facility] Comment on above: Order Comment: @12/14: SMUDGE CELLS added. RFLXG = MORPH.@10/02/17656: GIANT PLATELETS added. RFLXG = MORPH.@10/02/17656: POLYCHROM added. RFLXG = MORPH.@10/02/17656: HYPERCHROM added. RFLXG = MORPH.@10/02/17656: HYPOCHROM added. RFLXG = MORPH.@10/02/17656: POIK added. RFLXG = MORPH.@10/02/17656: BASO STIP added. RFLXG = MORPH.@10/02/17656: ANISO added. RFLXG = MORPH.@10/02/17656: MICRO added. RFLXG = MORPH.@10/02/17656: MACRO added. RFLXG = MORPH.@10/02/17656: SPHERE added. RFLXG = MORPH.@10/02/17656: ELLIPTO added. RFLXG = MORPH.@10/02/17656: SIDEROCYTE added. RFLXG = MORPH.@10/02/17656: ADARSH BODIES added. RFLXG = MORPH.@10/02/17656: PELGER-HUET added. RFLXG = MORPH.@10/02/17656: ANA LILIA BODIES added. RFLXG = MORPH.@10/02/17656: SICKLE added. RFLXG = MORPH.@10/02/17656: TARGET added. RFLXG = MORPH.@10/02/17656: TEAR added. RFLXG = MORPH.@10/02/17656: OVAL added. RFLXG = MORPH.@10/02/17656: STOMATO added. RFLXG = MORPH.@10/02/17656: HELMET CELLS added. RFLXG = MORPH.@10/02/17656: HJ BODIES added. RFLXG = MORPH.@10/02/17656: TOXIC GRAN added. RFLXG = MORPH.@10/02/17656: TOXIC VAC added. RFLXG = MORPH.@10/02/17656: DOHLE BODIES added. RFLXG = MORPH.@10/02/17656: NIMISHA CELLS added. RFLXG = MORPH.@10/02/17656: CRENATED RBC added. RFLXG = MORPH.@10/02/17656: ACANTHO added. RFLXG = MORPH.@10/02/17656: ROLY RODS added. RFLXG = MORPH.@10/02/17656: ROULEAUX added. RFLXG = MORPH.@10/02/17656: SCHISTO added. RFLXG = MORPH.@10/02/17656: PARASITES added. RFLXG = MORPH. Performed By: #### C REAT-EGFR, SEC CALL ####Main Lab - [id number] [place], [place] [address] Eosinophils 0.5 10 3/uL Normal 0.0-0.7 [facility] Comment on above: Order Comment: @0 12/14 656: SMUDGE CELLS added. RFLXG = MORPH.@10/02/17656: GIANT PLATELETS added. RFLXG = MORPH.@10/02/17656: POLYCHROM added. RFLXG = MORPH.@10/02/17656: HYPERCHROM added. RFLXG = MORPH.@10/02/17656: HYPOCHROM added. RFLXG = MORPH.@10/02/17656: POIK added. RFLXG = MORPH.@10/02/17656: BASO STIP added. RFLXG = MORPH.@10/02/17656: ANISO added. RFLXG = MORPH.@10/02/17656: MICRO added. RFLXG = MORPH.@10/02/17656: MACRO added. RFLXG = MORPH.@10/02/17656: SPHERE added. RFLXG = MORPH.@10/02/17656: ELLIPTO added. RFLXG = MORPH.@10/02/17656: SIDEROCYTE added. RFLXG = MORPH.@10/02/17656: ADARSH BODIES added. RFLXG = MORPH.@10/02/17656: PELGER-HUET added. RFLXG = MORPH.@10/02/17656: ANA LILIA BODIES added. RFLXG = MORPH.@10/02/17656: SICKLE added. RFLXG = MORPH.@10/02/17656: TARGET added. RFLXG = MORPH.@10/02/17656: TEAR added. RFLXG = MORPH.@10/02/17656: OVAL added. RFLXG = MORPH.@10/02/17656: STOMATO added. RFLXG = MORPH.@10/02/17656: HELMET CELLS added. RFLXG = MORPH.@10/02/17656: HJ BODIES added. RFLXG = MORPH.@10/02/17656: TOXIC GRAN added. RFLXG = MORPH.@10/02/17656: TOXIC VAC added. RFLXG = MORPH.@10/02/17656: DOHLE BODIES added. RFLXG = MORPH.@10/02/17656: NIMISHA CELLS added. RFLXG = MORPH.@10/02/17656: CRENATED RBC added. RFLXG = MORPH.@10/02/17656: ACANTHO added. RFLXG = MORPH.@10/02/17656: ROLY RODS added. RFLXG = MORPH.@10/02/17656: ROULEAUX added. RFLXG = MORPH.@10/02/17656: SCHISTO added. RFLXG = MORPH.@10/02/17656: PARASITES added. RFLXG = MORPH. Performed By: #### C REAT-EGFR, SEC CALL ####Main Lab - [id number] [place], [place] [address] Eosinophils/100 leukocytes 8.6 % High 0.0-5.0 [facility] Comment on above: Order Comment: @12/14: SMUDGE CELLS added. RFLXG = MORPH.@10/02/17656: GIANT PLATELETS added. RFLXG = MORPH.@10/02/17656: POLYCHROM added. RFLXG = MORPH.@10/02/17656: HYPERCHROM added. RFLXG = MORPH.@10/02/17656: HYPOCHROM added. RFLXG = MORPH.@10/02/17656: POIK added. RFLXG = MORPH.@10/02/17656: BASO STIP added. RFLXG = MORPH.@10/02/17656: ANISO added. RFLXG = MORPH.@10/02/17656: MICRO added. RFLXG = MORPH.@10/02/17656: MACRO added. RFLXG = MORPH.@10/02/17656: SPHERE added. RFLXG = MORPH.@10/02/17656: ELLIPTO added. RFLXG = MORPH.@10/02/17656: SIDEROCYTE added. RFLXG = MORPH.@10/02/17656: ADARSH BODIES added. RFLXG = MORPH.@10/02/17656: PELGER-HUET added. RFLXG = MORPH.@10/02/17656: ANA LILIA BODIES added. RFLXG = MORPH.@10/02/17656: SICKLE added. RFLXG = MORPH.@10/02/17656: TARGET added. RFLXG = MORPH.@10/02/17656: TEAR added. RFLXG = MORPH.@10/02/17656: OVAL added. RFLXG = MORPH.@10/02/17656: STOMATO added. RFLXG = MORPH.@10/02/17656: HELMET CELLS added. RFLXG = MORPH.@10/02/17656: HJ BODIES added. RFLXG = MORPH.@10/02/17656: TOXIC GRAN added. RFLXG = MORPH.@10/02/17656: TOXIC VAC added. RFLXG = MORPH.@10/02/17656: DOHLE BODIES added. RFLXG = MORPH.@10/02/17656: NIMISHA CELLS added. RFLXG = MORPH.@10/02/17656: CRENATED RBC added. RFLXG = MORPH.@10/02/17656: ACANTHO added. RFLXG = MORPH.@10/02/17656: ROLY RODS added. RFLXG = MORPH.@10/02/17656: ROULEAUX added. RFLXG = MORPH.@10/02/17656: SCHISTO added. RFLXG = MORPH.@10/02/17656: PARASITES added. RFLXG = MORPH. Performed By: #### C REAT-EGFR, SEC CALL ####Main Lab - [id number] [place] [address] Erythrocyte distribution width Auto Ratio (RBC) 33.2 % High 11.5-14.0 [facility] Comment on above: Order Comment: @12/14: SMUDGE CELLS added. RFLXG = MORPH.@10/02/17656: GIANT PLATELETS added. RFLXG = MORPH.@10/02/17656: POLYCHROM added. RFLXG = MORPH.@10/02/17656: HYPERCHROM added. RFLXG = MORPH.@10/02/17656: HYPOCHROM added. RFLXG = MORPH.@10/02/17656: POIK added. RFLXG = MORPH.@10/02/17656: BASO STIP added. RFLXG = MORPH.@10/02/17656: ANISO added. RFLXG = MORPH.@10/02/17656: MICRO added. RFLXG = MORPH.@10/02/17656: MACRO added. RFLXG = MORPH.@10/02/17656: SPHERE added. RFLXG = MORPH.@10/02/17656: ELLIPTO added. RFLXG = MORPH.@10/02/17656: SIDEROCYTE added. RFLXG = MORPH.@10/02/17656: ADARSH BODIES added. RFLXG = MORPH.@10/02/17656: PELGER-HUET added. RFLXG = MORPH.@10/02/17656: ANA LILIA BODIES added. RFLXG = MORPH.@10/02/17656: SICKLE added. RFLXG = MORPH.@10/02/17656: TARGET added. RFLXG = MORPH.@10/02/17656: TEAR added. RFLXG = MORPH.@10/02/17656: OVAL added. RFLXG = MORPH.@10/02/17656: STOMATO added. RFLXG = MORPH.@10/02/17656: HELMET CELLS added. RFLXG = MORPH.@10/02/17656: HJ BODIES added. RFLXG = MORPH.@10/02/17656: TOXIC GRAN added. RFLXG = MORPH.@10/02/17656: TOXIC VAC added. RFLXG = MORPH.@10/02/17656: DOHLE BODIES added. RFLXG = MORPH.@10/02/17656: NIMISHA CELLS added. RFLXG = MORPH.@10/02/17656: CRENATED RBC added. RFLXG = MORPH.@10/02/17656: ACANTHO added. RFLXG = MORPH.@10/02/17656: ROLY RODS added. RFLXG = MORPH.@10/02/17656: ROULEAUX added. RFLXG = MORPH.@10/02/17656: SCHISTO added. RFLXG = MORPH.@10/02/17656: PARASITES added. RFLXG = MORPH. Performed By: #### C REAT-EGFR, SEC CALL ####Main Lab - [id number] [place], [place] [address] Erythrocytes (RBC) 3.77 x10 6/uL Low 3.89-5.30 [facility] Comment on above: Order Comment: @12/14: SMUDGE CELLS added. RFLXG = MORPH.@10/02/17656: GIANT PLATELETS added. RFLXG = MORPH.@10/02/17656: POLYCHROM added. RFLXG = MORPH.@10/02/17656: HYPERCHROM added. RFLXG = MORPH.@10/02/17656: HYPOCHROM added. RFLXG = MORPH.@10/02/17656: POIK added. RFLXG = MORPH.@10/02/17656: BASO STIP added. RFLXG = MORPH.@10/02/17656: ANISO added. RFLXG = MORPH.@10/02/17656: MICRO added. RFLXG = MORPH.@10/02/17656: MACRO added. RFLXG = MORPH.@10/02/17656: SPHERE added. RFLXG = MORPH.@10/02/17656: ELLIPTO added. RFLXG = MORPH.@10/02/17656: SIDEROCYTE added. RFLXG = MORPH.@10/02/17656: ADARSH BODIES added. RFLXG = MORPH.@10/02/17656: PELGER-HUET added. RFLXG = MORPH.@10/02/17656: ANA LILIA BODIES added. RFLXG = MORPH.@10/02/17656: SICKLE added. RFLXG = MORPH.@10/02/17656: TARGET added. RFLXG = MORPH.@10/02/17656: TEAR added. RFLXG = MORPH.@10/02/17656: OVAL added. RFLXG = MORPH.@10/02/17656: STOMATO added. RFLXG = MORPH.@10/02/17656: HELMET CELLS added. RFLXG = MORPH.@10/02/17656: HJ BODIES added. RFLXG = MORPH.@10/02/17656: TOXIC GRAN added. RFLXG = MORPH.@10/02/17656: TOXIC VAC added. RFLXG = MORPH.@10/02/17656: DOHLE BODIES added. RFLXG = MORPH.@10/02/17656: NIMISHA CELLS added. RFLXG = MORPH.@10/02/17656: CRENATED RBC added. RFLXG = MORPH.@10/02/17656: ACANTHO added. RFLXG = MORPH.@10/02/17656: ROLY RODS added. RFLXG = MORPH.@10/02/17656: ROULEAUX added. RFLXG = MORPH.@10/02/17656: SCHISTO added. RFLXG = MORPH.@10/02/17656: PARASITES added. RFLXG = MORPH. Performed By: #### C REAT-EGFR, SEC CALL ####Main Lab - [id number] [place] [id number] Hematocrit (HCT) 26.0 % Low 34.8-45.0 [facility] Comment on above: Order Comment: @12/14: SMUDGE CELLS added. RFLXG = MORPH.@10/02/17656: GIANT PLATELETS added. RFLXG = MORPH.@10/02/17656: POLYCHROM added. RFLXG = MORPH.@10/02/17656: HYPERCHROM added. RFLXG = MORPH.@10/02/17656: HYPOCHROM added. RFLXG = MORPH.@10/02/17656: POIK added. RFLXG = MORPH.@10/02/17656: BASO STIP added. RFLXG = MORPH.@10/02/17656: ANISO added. RFLXG = MORPH.@10/02/17656: MICRO added. RFLXG = MORPH.@10/02/17656: MACRO added. RFLXG = MORPH.@10/02/17656: SPHERE added. RFLXG = MORPH.@10/02/17656: ELLIPTO added. RFLXG = MORPH.@10/02/17656: SIDEROCYTE added. RFLXG = MORPH.@10/02/17656: ADARSH BODIES added. RFLXG = MORPH.@10/02/17656: PELGER-HUET added. RFLXG = MORPH.@10/02/17656: ANA LILIA BODIES added. RFLXG = MORPH.@10/02/17656: SICKLE added. RFLXG = MORPH.@10/02/17656: TARGET added. RFLXG = MORPH.@10/02/17656: TEAR added. RFLXG = MORPH.@10/02/17656: OVAL added. RFLXG = MORPH.@10/02/17656: STOMATO added. RFLXG = MORPH.@10/02/17656: HELMET CELLS added. RFLXG = MORPH.@10/02/17656: HJ BODIES added. RFLXG = MORPH.@10/02/17656: TOXIC GRAN added. RFLXG = MORPH.@10/02/17656: TOXIC VAC added. RFLXG = MORPH.@10/02/17656: DOHLE BODIES added. RFLXG = MORPH.@10/02/17656: NIMISHA CELLS added. RFLXG = MORPH.@10/02/17656: CRENATED RBC added. RFLXG = MORPH.@10/02/17656: ACANTHO added. RFLXG = MORPH.@10/02/17656: ROLY RODS added. RFLXG = MORPH.@10/02/17656: ROULEAUX added. RFLXG = MORPH.@10/02/17656: SCHISTO added. RFLXG = MORPH.@10/02/17656: PARASITES added. RFLXG = MORPH. Performed By: #### C REAT-EGFR, SEC CALL ####Main Lab - [id number] [place], [place] [address] Hemoglobin mass conc (Bld) 8.5 g/dL Low 11.6-14.9 [facility] Comment on above: Order Comment: @12/14: SMUDGE CELLS added. RFLXG = MORPH.@10/02/17656: GIANT PLATELETS added. RFLXG = MORPH.@10/02/17656: POLYCHROM added. RFLXG = MORPH.@10/02/17656: HYPERCHROM added. RFLXG = MORPH.@10/02/17656: HYPOCHROM added. RFLXG = MORPH.@10/02/17656: POIK added. RFLXG = MORPH.@10/02/17656: BASO STIP added. RFLXG = MORPH.@10/02/17656: ANISO added. RFLXG = MORPH.@10/02/17656: MICRO added. RFLXG = MORPH.@10/02/17656: MACRO added. RFLXG = MORPH.@10/02/17656: SPHERE added. RFLXG = MORPH.@10/02/17656: ELLIPTO added. RFLXG = MORPH.@10/02/17656: SIDEROCYTE added. RFLXG = MORPH.@10/02/17656: ADARSH BODIES added. RFLXG = MORPH.@10/02/17656: PELGER-HUET added. RFLXG = MORPH.@10/02/17656: ANA LILIA BODIES added. RFLXG = MORPH.@10/02/17656: SICKLE added. RFLXG = MORPH.@10/02/17656: TARGET added. RFLXG = MORPH.@10/02/17656: TEAR added. RFLXG = MORPH.@10/02/17656: OVAL added. RFLXG = MORPH.@10/02/17656: STOMATO added. RFLXG = MORPH.@10/02/17656: HELMET CELLS added. RFLXG = MORPH.@10/02/17656: HJ BODIES added. RFLXG = MORPH.@10/02/17656: TOXIC GRAN added. RFLXG = MORPH.@10/02/17656: TOXIC VAC added. RFLXG = MORPH.@10/02/17656: DOHLE BODIES added. RFLXG = MORPH.@10/02/17656: NIMISHA CELLS added. RFLXG = MORPH.@10/02/17656: CRENATED RBC added. RFLXG = MORPH.@10/02/17656: ACANTHO added. RFLXG = MORPH.@10/02/17656: ROLY RODS added. RFLXG = MORPH.@10/02/17656: ROULEAUX added. RFLXG = MORPH.@10/02/17656: SCHISTO added. RFLXG = MORPH.@10/02/17656: PARASITES added. RFLXG = MORPH. Performed By: #### C REMARY-EGFR, SEC CALL ####Main Lab - [id number] [place], [place] [address] Lymphocytes 1.5 10 3/uL Normal 1.0-3.5 [facility] Comment on above: Order Comment: @12/14: SMUDGE CELLS added. RFLXG = MORPH.@10/02/17656: GIANT PLATELETS added. RFLXG = MORPH.@10/02/17656: POLYCHROM added. RFLXG = MORPH.@10/02/17656: HYPERCHROM added. RFLXG = MORPH.@10/02/17656: HYPOCHROM added. RFLXG = MORPH.@10/02/17656: POIK added. RFLXG = MORPH.@10/02/17656: BASO STIP added. RFLXG = MORPH.@10/02/17656: ANISO added. RFLXG = MORPH.@10/02/17656: MICRO added. RFLXG = MORPH.@10/02/17656: MACRO added. RFLXG = MORPH.@10/02/17656: SPHERE added. RFLXG = MORPH.@10/02/17656: ELLIPTO added. RFLXG = MORPH.@10/02/17656: SIDEROCYTE added. RFLXG = MORPH.@10/02/17656: ADARSH BODIES added. RFLXG = MORPH.@10/02/17656: PELGER-HUET added. RFLXG = MORPH.@10/02/17656: ANA LILIA BODIES added. RFLXG = MORPH.@10/02/17656: SICKLE added. RFLXG = MORPH.@10/02/17656: TARGET added. RFLXG = MORPH.@10/02/17656: TEAR added. RFLXG = MORPH.@10/02/17656: OVAL added. RFLXG = MORPH.@10/02/17656: STOMATO added. RFLXG = MORPH.@10/02/17656: HELMET CELLS added. RFLXG = MORPH.@10/02/17656: HJ BODIES added. RFLXG = MORPH.@10/02/17656: TOXIC GRAN added. RFLXG = MORPH.@10/02/17656: TOXIC VAC added. RFLXG = MORPH.@10/02/17656: DOHLE BODIES added. RFLXG = MORPH.@10/02/17656: NIMISHA CELLS added. RFLXG = MORPH.@10/02/17656: CRENATED RBC added. RFLXG = MORPH.@10/02/17656: ACANTHO added. RFLXG = MORPH.@10/02/17656: ROLY RODS added. RFLXG = MORPH.@10/02/17656: ROULEAUX added. RFLXG = MORPH.@10/02/17656: SCHISTO added. RFLXG = MORPH.@10/02/17656: PARASITES added. RFLXG = MORPH. Performed By: #### C OLIVIER-PRERNA, SEC CALL ####Main Lab - [id number] [place], [place] [address] Lymphocytes/100 leukocytes 23.5 % Low 24.0-44.0 [facility] Comment on above: Order Comment: @12/14: SMUDGE CELLS added. RFLXG = MORPH.@10/02/17656: GIANT PLATELETS added. RFLXG = MORPH.@10/02/17656: POLYCHROM added. RFLXG = MORPH.@10/02/17656: HYPERCHROM added. RFLXG = MORPH.@10/02/17656: HYPOCHROM added. RFLXG = MORPH.@10/02/17656: POIK added. RFLXG = MORPH.@10/02/17656: BASO STIP added. RFLXG = MORPH.@10/02/17656: ANISO added. RFLXG = MORPH.@10/02/17656: MICRO added. RFLXG = MORPH.@10/02/17656: MACRO added. RFLXG = MORPH.@10/02/17656: SPHERE added. RFLXG = MORPH.@10/02/17656: ELLIPTO added. RFLXG = MORPH.@10/02/17656: SIDEROCYTE added. RFLXG = MORPH.@10/02/17656: ADARSH BODIES added. RFLXG = MORPH.@10/02/17656: PELGER-HUET added. RFLXG = MORPH.@10/02/17656: ANA LILIA BODIES added. RFLXG = MORPH.@10/02/17656: SICKLE added. RFLXG = MORPH.@10/02/17656: TARGET added. RFLXG = MORPH.@10/02/17656: TEAR added. RFLXG = MORPH.@10/02/17656: OVAL added. RFLXG = MORPH.@10/02/17656: STOMATO added. RFLXG = MORPH.@10/02/17656: HELMET CELLS added. RFLXG = MORPH.@10/02/17656: HJ BODIES added. RFLXG = MORPH.@10/02/17656: TOXIC GRAN added. RFLXG = MORPH.@10/02/17656: TOXIC VAC added. RFLXG = MORPH.@10/02/17656: DOHLE BODIES added. RFLXG = MORPH.@10/02/17656: NIMISHA CELLS added. RFLXG = MORPH.@10/02/17656: CRENATED RBC added. RFLXG = MORPH.@10/02/17656: ACANTHO added. RFLXG = MORPH.@10/02/17656: ROLY RODS added. RFLXG = MORPH.@10/02/17656: ROULEAUX added. RFLXG = MORPH.@10/02/17656: SCHISTO added. RFLXG = MORPH.@10/02/17656: PARASITES added. RFLXG = MORPH. Performed By: #### C REAT-EGFR, SEC CALL ####Main Lab - [id number] [place], [place] [address] MCH 22.6 pg Low 27.0-31.0 [facility] Comment on above: Order Comment: @12/14: SMUDGE CELLS added. RFLXG = MORPH.@10/02/17656: GIANT PLATELETS added. RFLXG = MORPH.@10/02/17656: POLYCHROM added. RFLXG = MORPH.@10/02/17656: HYPERCHROM added. RFLXG = MORPH.@10/02/17656: HYPOCHROM added. RFLXG = MORPH.@10/02/17656: POIK added. RFLXG = MORPH.@10/02/17656: BASO STIP added. RFLXG = MORPH.@10/02/17656: ANISO added. RFLXG = MORPH.@10/02/17656: MICRO added. RFLXG = MORPH.@10/02/17656: MACRO added. RFLXG = MORPH.@10/02/17656: SPHERE added. RFLXG = MORPH.@10/02/17656: ELLIPTO added. RFLXG = MORPH.@10/02/17656: SIDEROCYTE added. RFLXG = MORPH.@10/02/17656: ADARSH BODIES added. RFLXG = MORPH.@10/02/17656: PELGER-HUET added. RFLXG = MORPH.@10/02/17656: ANA LILIA BODIES added. RFLXG = MORPH.@10/02/17656: SICKLE added. RFLXG = MORPH.@10/02/17656: TARGET added. RFLXG = MORPH.@10/02/17656: TEAR added. RFLXG = MORPH.@10/02/17656: OVAL added. RFLXG = MORPH.@10/02/17656: STOMATO added. RFLXG = MORPH.@10/02/17656: HELMET CELLS added. RFLXG = MORPH.@10/02/17656: HJ BODIES added. RFLXG = MORPH.@10/02/17656: TOXIC GRAN added. RFLXG = MORPH.@10/02/17656: TOXIC VAC added. RFLXG = MORPH.@10/02/17656: DOHLE BODIES added. RFLXG = MORPH.@10/02/17656: NIMISHA CELLS added. RFLXG = MORPH.@10/02/17656: CRENATED RBC added. RFLXG = MORPH.@10/02/17656: ACANTHO added. RFLXG = MORPH.@10/02/17656: ROLY RODS added. RFLXG = MORPH.@10/02/17656: ROULEAUX added. RFLXG = MORPH.@10/02/17656: SCHISTO added. RFLXG = MORPH.@10/02/17656: PARASITES added. RFLXG = MORPH. Performed By: #### C REAT-EGFR, SEC CALL ####Main Lab - [id number] [place] [address] MCHC mass conc (RBC) 32.7 g/dL Normal 32.0-36.0 [facility] Comment on above: Order Comment: @12/14: SMUDGE CELLS added. RFLXG = MORPH.@10/02/17656: GIANT PLATELETS added. RFLXG = MORPH.@10/02/17656: POLYCHROM added. RFLXG = MORPH.@10/02/17656: HYPERCHROM added. RFLXG = MORPH.@10/02/17656: HYPOCHROM added. RFLXG = MORPH.@10/02/17656: POIK added. RFLXG = MORPH.@10/02/17656: BASO STIP added. RFLXG = MORPH.@10/02/17656: ANISO added. RFLXG = MORPH.@10/02/17656: MICRO added. RFLXG = MORPH.@10/02/17656: MACRO added. RFLXG = MORPH.@10/02/17656: SPHERE added. RFLXG = MORPH.@10/02/17656: ELLIPTO added. RFLXG = MORPH.@10/02/17656: SIDEROCYTE added. RFLXG = MORPH.@10/02/17656: ADARSH BODIES added. RFLXG = MORPH.@10/02/17656: PELGER-HUET added. RFLXG = MORPH.@10/02/17656: ANA LILIA BODIES added. RFLXG = MORPH.@10/02/17656: SICKLE added. RFLXG = MORPH.@10/02/17656: TARGET added. RFLXG = MORPH.@10/02/17656: TEAR added. RFLXG = MORPH.@10/02/17656: OVAL added. RFLXG = MORPH.@10/02/17656: STOMATO added. RFLXG = MORPH.@10/02/17656: HELMET CELLS added. RFLXG = MORPH.@10/02/17656: HJ BODIES added. RFLXG = MORPH.@10/02/17656: TOXIC GRAN added. RFLXG = MORPH.@10/02/17656: TOXIC VAC added. RFLXG = MORPH.@10/02/17656: DOHLE BODIES added. RFLXG = MORPH.@10/02/17656: NIMISHA CELLS added. RFLXG = MORPH.@10/02/17656: CRENATED RBC added. RFLXG = MORPH.@10/02/17656: ACANTHO added. RFLXG = MORPH.@10/02/17656: ROLY RODS added. RFLXG = MORPH.@10/02/17656: ROULEAUX added. RFLXG = MORPH.@10/02/17656: SCHISTO added. RFLXG = MORPH.@10/02/17656: PARASITES added. RFLXG = MORPH. Performed By: #### C REAT-EGFR, SEC CALL ####Main Lab - [id number] [place], [place] [address] MCV 69.2 fL Low 78.0-100.0 [facility] Comment on above: Order Comment: @12/14: SMUDGE CELLS added. RFLXG = MORPH.@10/02/17656: GIANT PLATELETS added. RFLXG = MORPH.@10/02/17656: POLYCHROM added. RFLXG = MORPH.@10/02/17656: HYPERCHROM added. RFLXG = MORPH.@10/02/17656: HYPOCHROM added. RFLXG = MORPH.@10/02/17656: POIK added. RFLXG = MORPH.@10/02/17656: BASO STIP added. RFLXG = MORPH.@10/02/17656: ANISO added. RFLXG = MORPH.@10/02/17656: MICRO added. RFLXG = MORPH.@10/02/17656: MACRO added. RFLXG = MORPH.@10/02/17656: SPHERE added. RFLXG = MORPH.@10/02/17656: ELLIPTO added. RFLXG = MORPH.@10/02/17656: SIDEROCYTE added. RFLXG = MORPH.@10/02/17656: ADARSH BODIES added. RFLXG = MORPH.@10/02/17656: PELGER-HUET added. RFLXG = MORPH.@10/02/17656: ANA LILIA BODIES added. RFLXG = MORPH.@10/02/17656: SICKLE added. RFLXG = MORPH.@10/02/17656: TARGET added. RFLXG = MORPH.@02/04/18 0657: TEAR added. RFLXG = MORPH.@10/02/17656: OVAL added. RFLXG = MORPH.@10/02/17656: STOMATO added. RFLXG = MORPH.@10/02/17656: HELMET CELLS added. RFLXG = MORPH.@10/02/17656: HJ BODIES added. RFLXG = MORPH.@10/02/17656: TOXIC GRAN added. RFLXG = MORPH.@10/02/17656: TOXIC VAC added. RFLXG = MORPH.@10/02/17656: DOHLE BODIES added. RFLXG = MORPH.@10/02/17656: NIMISHA CELLS added. RFLXG = MORPH.@10/02/17656: CRENATED RBC added. RFLXG = MORPH.@10/02/17656: ACANTHO added. RFLXG = MORPH.@10/02/17656: ROLY RODS added. RFLXG = MORPH.@10/02/17656: ROULEAUX added. RFLXG = MORPH.@10/02/17656: SCHISTO added. RFLXG = MORPH.@10/02/17656: PARASITES added. RFLXG = MORPH. Performed By: #### C REAT-EGFR, SEC CALL ####Main Lab - [id number] [place], [place] [address] Monocytes 0.5 10 3/uL Normal 0.2-0.8 [facility] Comment on above: Order Comment: @12/14: SMUDGE CELLS added. RFLXG = MORPH.@10/02/17656: GIANT PLATELETS added. RFLXG = MORPH.@10/02/17656: POLYCHROM added. RFLXG = MORPH.@10/02/17656: HYPERCHROM added. RFLXG = MORPH.@10/02/17656: HYPOCHROM added. RFLXG = MORPH.@10/02/17656: POIK added. RFLXG = MORPH.@10/02/17656: BASO STIP added. RFLXG = MORPH.@10/02/17656: ANISO added. RFLXG = MORPH.@10/02/17656: MICRO added. RFLXG = MORPH.@10/02/17656: MACRO added. RFLXG = MORPH.@10/02/17656: SPHERE added. RFLXG = MORPH.@10/02/17656: ELLIPTO added. RFLXG = MORPH.@10/02/17656: SIDEROCYTE added. RFLXG = MORPH.@10/02/17656: ADARSH BODIES added. RFLXG = MORPH.@10/02/17656: PELGER-HUET added. RFLXG = MORPH.@10/02/17656: ANA LILIA BODIES added. RFLXG = MORPH.@10/02/17656: SICKLE added. RFLXG = MORPH.@10/02/17656: TARGET added. RFLXG = MORPH.@10/02/17656: TEAR added. RFLXG = MORPH.@10/02/17656: OVAL added. RFLXG = MORPH.@10/02/17656: STOMATO added. RFLXG = MORPH.@10/02/17656: HELMET CELLS added. RFLXG = MORPH.@10/02/17656: HJ BODIES added. RFLXG = MORPH.@10/02/17656: TOXIC GRAN added. RFLXG = MORPH.@10/02/17656: TOXIC VAC added. RFLXG = MORPH.@10/02/17656: DOHLE BODIES added. RFLXG = MORPH.@10/02/17656: NIMISHA CELLS added. RFLXG = MORPH.@10/02/17656: CRENATED RBC added. RFLXG = MORPH.@10/02/17656: ACANTHO added. RFLXG = MORPH.@10/02/17656: ROLY RODS added. RFLXG = MORPH.@10/02/17656: ROULEAUX added. RFLXG = MORPH.@10/02/17656: SCHISTO added. RFLXG = MORPH.@10/02/17656: PARASITES added. RFLXG = MORPH. Performed By: #### C REAT-EGFR, SEC CALL ####Main Lab - [id number] [place], [place] [address] Monocytes/100 leukocytes 7.9 % Normal 1.7-9.3 [facility] Comment on above: Order Comment: @12/14: SMUDGE CELLS added. RFLXG = MORPH.@10/02/17656: GIANT PLATELETS added. RFLXG = MORPH.@10/02/17656: POLYCHROM added. RFLXG = MORPH.@10/02/17656: HYPERCHROM added. RFLXG = MORPH.@10/02/17656: HYPOCHROM added. RFLXG = MORPH.@10/02/17656: POIK added. RFLXG = MORPH.@10/02/17656: BASO STIP added. RFLXG = MORPH.@10/02/17656: ANISO added. RFLXG = MORPH.@10/02/17656: MICRO added. RFLXG = MORPH.@10/02/17656: MACRO added. RFLXG = MORPH.@10/02/17656: SPHERE added. RFLXG = MORPH.@10/02/17656: ELLIPTO added. RFLXG = MORPH.@10/02/17656: SIDEROCYTE added. RFLXG = MORPH.@10/02/17656: ADARSH BODIES added. RFLXG = MORPH.@10/02/17656: PELGER-HUET added. RFLXG = MORPH.@10/02/17656: ANA LILIA BODIES added. RFLXG = MORPH.@10/02/17656: SICKLE added. RFLXG = MORPH.@10/02/17656: TARGET added. RFLXG = MORPH.@10/02/17656: TEAR added. RFLXG = MORPH.@10/02/17656: OVAL added. RFLXG = MORPH.@10/02/17656: STOMATO added. RFLXG = MORPH.@10/02/17656: HELMET CELLS added. RFLXG = MORPH.@10/02/17656: HJ BODIES added. RFLXG = MORPH.@10/02/17656: TOXIC GRAN added. RFLXG = MORPH.@10/02/17656: TOXIC VAC added. RFLXG = MORPH.@10/02/17656: DOHLE BODIES added. RFLXG = MORPH.@10/02/17656: NIMISHA CELLS added. RFLXG = MORPH.@10/02/17656: CRENATED RBC added. RFLXG = MORPH.@10/02/17656: ACANTHO added. RFLXG = MORPH.@10/02/17656: ROLY RODS added. RFLXG = MORPH.@10/02/17656: ROULEAUX added. RFLXG = MORPH.@10/02/17656: SCHISTO added. RFLXG = MORPH.@10/02/17656: PARASITES added. RFLXG = MORPH. Performed By: #### C REAT-EGFR, SEC CALL ####Main Lab - [id number] [place], [place] [address] Neutrophils 3.7 10 3/uL Normal 1.5-6.7 [facility] Comment on above: Order Comment: @12/14: SMUDGE CELLS added. RFLXG = MORPH.@10/02/17656: GIANT PLATELETS added. RFLXG = MORPH.@10/02/17656: POLYCHROM added. RFLXG = MORPH.@10/02/17656: HYPERCHROM added. RFLXG = MORPH.@10/02/17656: HYPOCHROM added. RFLXG = MORPH.@10/02/17656: POIK added. RFLXG = MORPH.@10/02/17656: BASO STIP added. RFLXG = MORPH.@10/02/17656: ANISO added. RFLXG = MORPH.@10/02/17656: MICRO added. RFLXG = MORPH.@10/02/17656: MACRO added. RFLXG = MORPH.@10/02/17656: SPHERE added. RFLXG = MORPH.@10/02/17656: ELLIPTO added. RFLXG = MORPH.@10/02/17656: SIDEROCYTE added. RFLXG = MORPH.@10/02/17656: ADARSH BODIES added. RFLXG = MORPH.@10/02/17656: PELGER-HUET added. RFLXG = MORPH.@10/02/17656: ANA LILIA BODIES added. RFLXG = MORPH.@10/02/17656: SICKLE added. RFLXG = MORPH.@10/02/17656: TARGET added. RFLXG = MORPH.@10/02/17656: TEAR added. RFLXG = MORPH.@10/02/17656: OVAL added. RFLXG = MORPH.@10/02/17656: STOMATO added. RFLXG = MORPH.@10/02/17656: HELMET CELLS added. RFLXG = MORPH.@10/02/17656: HJ BODIES added. RFLXG = MORPH.@10/02/17656: TOXIC GRAN added. RFLXG = MORPH.@10/02/17656: TOXIC VAC added. RFLXG = MORPH.@10/02/17656: DOHLE BODIES added. RFLXG = MORPH.@10/02/17656: NIMISHA CELLS added. RFLXG = MORPH.@10/02/17656: CRENATED RBC added. RFLXG = MORPH.@10/02/17656: ACANTHO added. RFLXG = MORPH.@10/02/17656: ROLY RODS added. RFLXG = MORPH.@10/02/17656: ROULEAUX added. RFLXG = MORPH.@10/02/17656: SCHISTO added. RFLXG = MORPH.@10/02/17656: PARASITES added. RFLXG = MORPH. Performed By: #### C REAT-EGFR, SEC CALL ####Main Lab - [id number] [place], [place] [address] Platelet mean volume (PMV) 8.4 fL Normal 6.0-9.5 [facility] Comment on above: Order Comment: @12/14: SMUDGE CELLS added. RFLXG = MORPH.@10/02/17656: GIANT PLATELETS added. RFLXG = MORPH.@10/02/17656: POLYCHROM added. RFLXG = MORPH.@10/02/17656: HYPERCHROM added. RFLXG = MORPH.@10/02/17656: HYPOCHROM added. RFLXG = MORPH.@10/02/17656: POIK added. RFLXG = MORPH.@10/02/17656: BASO STIP added. RFLXG = MORPH.@10/02/17656: ANISO added. RFLXG = MORPH.@10/02/17656: MICRO added. RFLXG = MORPH.@10/02/17656: MACRO added. RFLXG = MORPH.@10/02/17656: SPHERE added. RFLXG = MORPH.@10/02/17656: ELLIPTO added. RFLXG = MORPH.@10/02/17656: SIDEROCYTE added. RFLXG = MORPH.@10/02/17656: ADARSH BODIES added. RFLXG = MORPH.@10/02/17656: PELGER-HUET added. RFLXG = MORPH.@10/02/17656: ANA LILIA BODIES added. RFLXG = MORPH.@10/02/17656: SICKLE added. RFLXG = MORPH.@10/02/17656: TARGET added. RFLXG = MORPH.@10/02/17656: TEAR added. RFLXG = MORPH.@10/02/17656: OVAL added. RFLXG = MORPH.@10/02/17656: STOMATO added. RFLXG = MORPH.@10/02/17656: HELMET CELLS added. RFLXG = MORPH.@10/02/17656: HJ BODIES added. RFLXG = MORPH.@10/02/17656: TOXIC GRAN added. RFLXG = MORPH.@10/02/17656: TOXIC VAC added. RFLXG = MORPH.@10/02/17656: DOHLE BODIES added. RFLXG = MORPH.@10/02/17656: NIMISHA CELLS added. RFLXG = MORPH.@10/02/17656: CRENATED RBC added. RFLXG = MORPH.@10/02/17656: ACANTHO added. RFLXG = MORPH.@10/02/1757: ROLY RODS added. RFLXG = MORPH.@10/02/17656: ROULEAUX added. RFLXG = MORPH.@10/02/17656: SCHISTO added. RFLXG = MORPH.@10/02/17656: PARASITES added. RFLXG = MORPH. Performed By: #### C REAT-EGFR, SEC CALL ####Main Lab - [id number] [place], [place] [address] Platelets 206 10 3/uL Normal 150-450 [facility] Comment on above: Order Comment: @0 12/14 656: SMUDGE CELLS added. RFLXG = MORPH.@10/02/17656: GIANT PLATELETS added. RFLXG = MORPH.@10/02/17656: POLYCHROM added. RFLXG = MORPH.@10/02/17656: HYPERCHROM added. RFLXG = MORPH.@10/02/17656: HYPOCHROM added. RFLXG = MORPH.@10/02/17656: POIK added. RFLXG = MORPH.@10/02/17656: BASO STIP added. RFLXG = MORPH.@10/02/17656: ANISO added. RFLXG = MORPH.@10/02/17656: MICRO added. RFLXG = MORPH.@10/02/17656: MACRO added. RFLXG = MORPH.@10/02/17656: SPHERE added. RFLXG = MORPH.@10/02/17656: ELLIPTO added. RFLXG = MORPH.@10/02/17656: SIDEROCYTE added. RFLXG = MORPH.@10/02/17656: ADARSH BODIES added. RFLXG = MORPH.@10/02/17656: PELGER-HUET added. RFLXG = MORPH.@10/02/17656: ANA LILIA BODIES added. RFLXG = MORPH.@10/02/17656: SICKLE added. RFLXG = MORPH.@10/02/17656: TARGET added. RFLXG = MORPH.@10/02/17656: TEAR added. RFLXG = MORPH.@10/02/17656: OVAL added. RFLXG = MORPH.@10/02/17656: STOMATO added. RFLXG = MORPH.@10/02/17656: HELMET CELLS added. RFLXG = MORPH.@10/02/17656: HJ BODIES added. RFLXG = MORPH.@10/02/17656: TOXIC GRAN added. RFLXG = MORPH.@10/02/17656: TOXIC VAC added. RFLXG = MORPH.@10/02/17656: DOHLE BODIES added. RFLXG = MORPH.@10/02/17656: NIMISHA CELLS added. RFLXG = MORPH.@10/02/17656: CRENATED RBC added. RFLXG = MORPH.@10/02/17656: ACANTHO added. RFLXG = MORPH.@10/02/17656: ROLY RODS added. RFLXG = MORPH.@10/02/17656: ROULEAUX added. RFLXG = MORPH.@10/02/17656: SCHISTO added. RFLXG = MORPH.@10/02/17656: PARASITES added. RFLXG = MORPH. Performed By: #### C [facility], SEC CALL ####Main Lab - [id number] [place], [place] [address] Segmented Neutrophils/100 leukocytes 58.3 % Normal 36.0-66.0 [facility] Comment on above: Order Comment: @12/14: SMUDGE CELLS added. RFLXG = MORPH.@10/02/17656: GIANT PLATELETS added. RFLXG = MORPH.@10/02/17656: POLYCHROM added. RFLXG = MORPH.@10/02/17656: HYPERCHROM added. RFLXG = MORPH.@10/02/17656: HYPOCHROM added. RFLXG = MORPH.@10/02/17656: POIK added. RFLXG = MORPH.@10/02/17656: BASO STIP added. RFLXG = MORPH.@10/02/17656: ANISO added. RFLXG = MORPH.@10/02/17656: MICRO added. RFLXG = MORPH.@10/02/17656: MACRO added. RFLXG = MORPH.@10/02/17656: SPHERE added. RFLXG = MORPH.@10/02/17656: ELLIPTO added. RFLXG = MORPH.@10/02/17656: SIDEROCYTE added. RFLXG = MORPH.@10/02/17656: ADARSH BODIES added. RFLXG = MORPH.@10/02/17656: PELGER-HUET added. RFLXG = MORPH.@10/02/17656: ANA LILIA BODIES added. RFLXG = MORPH.@10/02/17656: SICKLE added. RFLXG = MORPH.@10/02/17656: TARGET added. RFLXG = MORPH.@10/02/17656: TEAR added. RFLXG = MORPH.@10/02/17656: OVAL added. RFLXG = MORPH.@10/02/17656: STOMATO added. RFLXG = MORPH.@10/02/17656: HELMET CELLS added. RFLXG = MORPH.@10/02/17656: HJ BODIES added. RFLXG = MORPH.@10/02/17656: TOXIC GRAN added. RFLXG = MORPH.@10/02/17656: TOXIC VAC added. RFLXG = MORPH.@10/02/17656: DOHLE BODIES added. RFLXG = MORPH.@10/02/17656: NIMISHA CELLS added. RFLXG = MORPH.@10/02/17656: CRENATED RBC added. RFLXG = MORPH.@10/02/17656: ACANTHO added. RFLXG = MORPH.@10/02/17656: ROLY RODS added. RFLXG = MORPH.@10/02/17656: ROULEAUX added. RFLXG = MORPH.@10/02/17656: SCHISTO added. RFLXG = MORPH.@10/02/17656: PARASITES added. RFLXG = MORPH. Performed By: #### C [facility], SEC CALL ####Main Lab - [id number] [place], [place] [address] WBC (Leukocytes) 6.4 10 3/uL Normal 4.0-10.5 [facility] Comment on above: Order Comment: @12/14: SMUDGE CELLS added. RFLXG = MORPH.@10/02/17656: GIANT PLATELETS added. RFLXG = MORPH.@10/02/17656: POLYCHROM added. RFLXG = MORPH.@10/02/17656: HYPERCHROM added. RFLXG = MORPH.@10/02/17656: HYPOCHROM added. RFLXG = MORPH.@10/02/17656: POIK added. RFLXG = MORPH.@10/02/17656: BASO STIP added. RFLXG = MORPH.@10/02/17656: ANISO added. RFLXG = MORPH.@10/02/17656: MICRO added. RFLXG = MORPH.@10/02/17656: MACRO added. RFLXG = MORPH.@10/02/17656: SPHERE added. RFLXG = MORPH.@10/02/17656: ELLIPTO added. RFLXG = MORPH.@10/02/17656: SIDEROCYTE added. RFLXG = MORPH.@10/02/17656: ADARSH BODIES added. RFLXG = MORPH.@10/02/17656: PELGER-HUET added. RFLXG = MORPH.@10/02/17656: ANA LILIA BODIES added. RFLXG = MORPH.@10/02/17656: SICKLE added. RFLXG = MORPH.@10/02/17656: TARGET added. RFLXG = MORPH.@10/02/17656: TEAR added. RFLXG = MORPH.@10/02/17656: OVAL added. RFLXG = MORPH.@10/02/17656: STOMATO added. RFLXG = MORPH.@10/02/17656: HELMET CELLS added. RFLXG = MORPH.@10/02/17656: HJ BODIES added. RFLXG = MORPH.@10/02/17656: TOXIC GRAN added. RFLXG = MORPH.@10/02/17 0657: TOXIC VAC added. RFLXG = MORPH.@10/02/1757: DOHLE BODIES added. RFLXG = MORPH.@10/02/17656: NIMISHA CELLS added. RFLXG = MORPH.@10/02/1757: CRENATED RBC added. RFLXG = MORPH.@10/02/1757: ACANTHO added. RFLXG = MORPH.@10/02/1757: ROLY RODS added. RFLXG = MORPH.@10/02/1757: ROULEAUX added. RFLXG = MORPH.@10/02/1757: SCHISTO added. RFLXG = MORPH.@10/02/17656: PARASITES added. RFLXG = MORPH. Performed By: #### C REAT-EGFR, SEC CALL ####Main Lab - [id number] [place], [place] [address] D-DIMERon 10-02-2017 D-DIMER 0.42 ug/mL Normal 0.00-0.50 [facility] Comment on above: Order Comment: @ COL L DATE was changed from 10/01/17 to 10/02/17@ by [id number]. Old specimen was [id number]. Result Comment: The D-Dimer assay can be used to assist in the diagnosis ofvenous thromboembolism. For the assay in use at [facility]), a D-Dimer cutoff of <0.50 ug/mL FEU has anegative predictive value of 99% for all patients suspectedof venous thromboembolism. Performed By: #### C REAT-EGFR, SEC CALL ####Main Lab - [id number] [place], [place] [address] HYPOCHROMASIAon 10-02-2017 HYPOCHROMASIA 1+ Abnormal [facility] Comment on above: Order Comment: @12/14: SMUDGE CELLS added. RFLXG = MORPH.@10/02/17656: GIANT PLATELETS added. RFLXG = MORPH.@10/02/1757: POLYCHROM added. RFLXG = MORPH.@10/02/17656: HYPERCHROM added. RFLXG = MORPH.@10/02/17656: HYPOCHROM added. RFLXG = MORPH.@10/02/17656: POIK added. RFLXG = MORPH.@10/02/17656: BASO STIP added. RFLXG = MORPH.@10/02/17656: ANISO added. RFLXG = MORPH.@10/02/17656: MICRO added. RFLXG = MORPH.@10/02/17656: MACRO added. RFLXG = MORPH.@10/02/17656: SPHERE added. RFLXG = MORPH.@10/02/17656: ELLIPTO added. RFLXG = MORPH.@10/02/17656: SIDEROCYTE added. RFLXG = MORPH.@10/02/17656: ADARSH BODIES added. RFLXG = MORPH.@10/02/17656: PELGER-HUET added. RFLXG = MORPH.@10/02/17656: ANA LILIA BODIES added. RFLXG = MORPH.@10/02/17656: SICKLE added. RFLXG = MORPH.@10/02/17656: TARGET added. RFLXG = MORPH.@10/02/17656: TEAR added. RFLXG = MORPH.@10/02/17656: OVAL added. RFLXG = MORPH.@10/02/17656: STOMATO added. RFLXG = MORPH.@10/02/17656: HELMET CELLS added. RFLXG = MORPH.@10/02/17656: HJ BODIES added. RFLXG = MORPH.@10/02/17656: TOXIC GRAN added. RFLXG = MORPH.@10/02/17656: TOXIC VAC added. RFLXG = MORPH.@10/02/17656: DOHLE BODIES added. RFLXG = MORPH.@10/02/17656: NIMISHA CELLS added. RFLXG = MORPH.@10/02/17656: CRENATED RBC added. RFLXG = MORPH.@10/02/17656: ACANTHO added. RFLXG = MORPH.@10/02/17656: ROLY RODS added. RFLXG = MORPH.@10/02/17656: ROULEAUX added. RFLXG = MORPH.@10/02/17656: SCHISTO added. RFLXG = MORPH.@10/02/17656: PARASITES added. RFLXG = MORPH. Performed By: #### C REAT-EGFR, SEC CALL ####Main Lab - [id number] [place], [place] [address] LACTATEon 10-02-2017 Lactate 2.2 mmol/L Normal 0.7-2.4 [facility] Comment on above: Performed By: #### C REAT-EGFR, SEC CALL ####Main Lab - [id number] [place], [place] [address] MICROCYTOSISon 10-02-2017 MICROCYTOSIS 3+ Abnormal [facility] Comment on above: Order Comment: @12/14: SMUDGE CELLS added. RFLXG = MORPH.@10/02/17656: GIANT PLATELETS added. RFLXG = MORPH.@10/02/17656: POLYCHROM added. RFLXG = MORPH.@10/02/17656: HYPERCHROM added. RFLXG = MORPH.@10/02/17656: HYPOCHROM added. RFLXG = MORPH.@10/02/17656: POIK added. RFLXG = MORPH.@10/02/17656: BASO STIP added. RFLXG = MORPH.@10/02/17656: ANISO added. RFLXG = MORPH.@10/02/17656: MICRO added. RFLXG = MORPH.@10/02/17656: MACRO added. RFLXG = MORPH.@10/02/17656: SPHERE added. RFLXG = MORPH.@10/02/17656: ELLIPTO added. RFLXG = MORPH.@10/02/17656: SIDEROCYTE added. RFLXG = MORPH.@10/02/17656: ADARSH BODIES added. RFLXG = MORPH.@10/02/17656: PELGER-HUET added. RFLXG = MORPH.@10/02/17656: ANA LILIA BODIES added. RFLXG = MORPH.@02/04/18 0657: SICKLE added. RFLXG = MORPH.@10/02/1757: TARGET added. RFLXG = MORPH.@10/02/17656: TEAR added. RFLXG = MORPH.@10/02/17656: OVAL added. RFLXG = MORPH.@10/02/17656: STOMATO added. RFLXG = MORPH.@10/02/17656: HELMET CELLS added. RFLXG = MORPH.@10/02/17656: HJ BODIES added. RFLXG = MORPH.@10/02/17656: TOXIC GRAN added. RFLXG = MORPH.@10/02/17656: TOXIC VAC added. RFLXG = MORPH.@10/02/17656: DOHLE BODIES added. RFLXG = MORPH.@10/02/17656: NIMISHA CELLS added. RFLXG = MORPH.@10/02/17656: CRENATED RBC added. RFLXG = MORPH.@10/02/17656: ACANTHO added. RFLXG = MORPH.@10/02/17656: ROLY RODS added. RFLXG = MORPH.@10/02/17656: ROULEAUX added. RFLXG = MORPH.@10/02/17656: SCHISTO added. RFLXG = MORPH.@10/02/17656: PARASITES added. RFLXG = MORPH. Performed By: #### C REAT-EGFR, SEC CALL ####Main Lab - [id number] [place] [id number] MRSA NASAL INPATIENTon 10-02 MRSA NARES SCREEN Negative Normal NEGATIVE [facility] Comment on above: Result Comment: Meth odology:PCR@Internal Pos/Neg controls reacted as detailed in procedure@literature. Performed By: #### C REAT-EGFR, SEC CALL ####Main Lab - [id number] [place] [id number] PERSONAL HISTORY AND PHYSICA Negro 10-02-2017 PERSONAL HISTORY AND PHYSICAL [address] [place] [address] PERSONAL HISTORY AND PHYSICAL : [id number] Signed Name: LEBLAS MRUN: [id number] : 1960 Loc: 2S Age / Sex: 57/ F Adm Status: ADM IN Adm Date:10/01/17 Room/Bed: [facility] DATE OF ADMISSION: 10/01/2017 DATE OF EXAMINATION: 10/01/2017 CHIEF COMPLAINT: Multiple syncopal episodes, diarrhea. HISTORY OF PRESENT ILLNESS: The patient is a 57-year-old female with history significant for hypertension, valve problems, with a recent ECHO with ejection fraction of 55%, moderate increased left atrial size, severe mitral valve prolapse, mild tricuspid regurgitation and hyperlipidemia who presented here with complaints of multiple syncopal episodes. The patient said she had had diarrhea for the past 2-3 days. No vomiting. Today she had several episodes of syncope. She passed out several times at home. She does not remember what happened and she was brought to the emergency room by a friend. She denied any abdominal pain. She is complaining of headache and neck pain, occasional chest pain. No shortness of breath. The patient was evaluated in the emergency room, found to have severe dehydration with acute kidney injury, creatinine of 2.38, bicarbonate of 13, potassium of 5.9. The patient was treated in the emergency room for the high potassium and admitted to the hospital for further care. PAST MEDICAL HISTORY: 1. Hypertension. 2. Mitral valve prolapse. 3. Hyperlipidemia. 4. Tricuspid regurgitation. FAMILY HISTORY: Diabetes in her mom. Hypertension runs in her family. SOCIAL HISTORY: She quit smoking about 4 years ago. Quit alcohol about 4 months ago. She says she does was not drinking much, just wine occasionally. Denied any drug use. ALLERGIES: SHE IS ALLERGIC TO CEFUROXIME, BROMPHENIRAMINE AND DEXTROMETHORPHAN. HOME MEDICATIONS: Include: 1. Oxycodone. 2. Lisinopril. 3. Cipro. 4. Albuterol. 5. Sucralfate. 6. Xanax. 7. Aspirin. 8. Advair. 9. Metronidazole. 10. Tizanidine 11. Pantoprazole. 12. Topiramate. 13. Gabapentin. REVIEW OF SYSTEMS: The patient had multiple syncopal episodes, chest pain, but no shortness of breath. The rest of her review of systems including all other systems reviewed were negative. PHYSICAL EXAMINATION: VITAL SIGNS: Show temperature of 97.6, pulse of 87, respiratory of 16, blood pressure of 140/111, saturating at 100% on room air. GENERAL: Patient is awake, alert, oriented, not in acute distress. HEENT: Sclerae are clear with no icterus. Mucous membrane is pink but dry. NECK: Supple. No jugular venous distention or carotid bruits. LUNGS: Clear to auscultation bilaterally. No wheezes or crackles. HEART: Regular rate and rhythm. S1 and S2 are positive. No rubs or gallops. The patient has murmurs on listening to her heart. ABDOMEN: Soft, nontender, nondistended. Bowel sounds are positive in all 4 quadrants. SKIN: Warm and dry. No lesions. No petechia or ecchymosis. NEUROLOGIC: No gross deficits. No edema. LABORATORY EVALUATION: CBC shows WBC of 9.9, H/H of 10 and 31.4, platelet count of 245,000. Chemistry shows sodium of 142, potassium of 5.9, chloride of 111, bicarbonate of 13, BUN of 77, creatinine of 2.38, glucose of 104, lactic acid of 2.2. Liver function test is normal. BNP of 100. Troponin of less than 0.03. Stool occult is negative. IMAGING: CT of the head done in the emergency room shows no acute intracranial abnormality. Chest x-ray done in the emergency room shows no acute abnormality. ASSESSMENT: 1. Multiple syncope, etiology not certain. The patient has severe mitral prolapse. Not sure if this is what is causing the syncope. She is very dehydrated from the diarrhea with metabolic acidosis and hyperkalemia, which could also cause the syncope. We will replace fluid and resuscitate the patient and see how the patient does. We will repeat a 2-D ECHO. Consult Cardiology to see the patient. The patient says she has an appointment to see a specialist at [place] for possible surgical repair of her heart. 2. Dehydration due to diarrhea. Continue IV fluid and monitor the patient closely. 3. Metabolic acidosis due to acute kidney injury. Replace with bicarbonate drip and monitor the patient closely. 4. Acute kidney injury, severe, secondary to the dehydration. Continue bicarbonate drip. Consult Nephrology to see the patient. 5. Hyperkalemia. The patient was treated in the emergency room. We will repeat potassium level. 6. Hypertension, benign and well-controlled. Continue home medication. Hold lisinopril and all nephrotoxic medication. 7. Hyperlipidemia. Continue home medication. Continue DVT and GI prophylaxis. I anticipate between 1-2 midnights stay in the hospital. Dictated By: Malachi Byers MD 10/02/17 1224 10/02/17 1224 Dictated Date/Time: 10/02/17 0009 Transcribed Date/Time: 10/02/17 0953 Normal [facility] PROGRESS NOTEon 10-02-[address] [facility], [place] [address] PROGRESS NOTE : [id number] Signed Name: BLAS LUJAN MRUN: [id number] : 1960 Loc: 2S Age / Sex: 57/ F Adm Status: DIS IN Adm Date:10/01/17 Room/Bed: [facility] DATE OF SERVICE: 10/02/2017 SUBJECTIVE: Ms. Lujan was admitted yesterday for symptoms of multiple falls and syncope. She was found to have an elevated creatinine and was started on intravenous fluid resuscitation with bicarbonate. She noticed significant improvement. She denies any dizziness, lightheadedness or near syncope this morning. Her blood work this morning revealed a creatinine of 1.07, BUN of 48 compared to 61 yesterday. Carbon dioxide has improved to 17 compared to 13 last night. All other blood work is unremarkable except a hemoglobin of 8.5 and MCV of 70. OBJECTIVE: VITAL SIGNS: Temperature 98, pulse 85, respiratory rate 16, blood pressure 94/55, oxygen saturation 96% on room air. GENERAL: She is a middle-aged female who appears older than her stated age. She is not in any significant distress. NECK: No elevated JVP. CARDIAC EXAM: Holosystolic murmur in the apex with radiation to the axilla suggestive of severe mitral regurgitation. LUNGS: No significant crackles or wheezing. ABDOMEN: Soft, nontender, nondistended. LOWER EXTREMITIES: No pitting edema. ASSESSMENT: 1. Syncope consistent with orthostatic in nature. It is improving with intravenous fluid resuscitation. 2. Severe mitral regurgitation. The patient is scheduled to undergo evaluation for surgical repair. Her appointment is on Tuesday. Hopefully, she will be discharged and would be able to make that appointment. 3. Acute kidney injury, likely secondary to diarrhea leading to volume depletion. Her creatinine has normalized. 4. Metabolic acidosis secondary to diarrhea, improving. 5. Hypertension, well controlled. 6. Hyperlipidemia. 7. Continue deep venous thrombosis and gastrointestinal prophylaxis. 8. Microcytic anemia. The patient has had an EGD and colonoscopy in the recent past. She was recommended a capsule endoscopy for further evaluation. She was seen by Dr. Simpson this afternoon, who recommended a capsule endoscopy, which will be started tomorrow. The drop in hemoglobin from 10 at presentation to 8.5 this morning is consistent with dilution due to concomitant decrease in the platelet count. Stool guaiac was negative during this hospitalization. DISPOSITION: Anticipated discharge in the next 24 hours. A PillCam study will be completed as an outpatient. Dictated By: Luis A Delgado MD 10/15/17 1155 10/15/17 1155 Dictated Date/Time: 10/02/17 2141 Transcribed Date/Time: 10/03/17 0767 Normal [facility] REPORT OF CONSULTATIONon REPORT OF CONSULTATION [facility] [place] [address] REPORT OF CONSULTATION : [id number] S[id number] MRUN: [id number] : 1960 Loc: 2S Age / Sex: 57/ F Adm Status: DIS IN Adm Date:10/01/17 Room/Bed: [facility] REASON FOR CONSULTATION: Acute kidney injury. HISTORY OF PRESENT ILLNESS: This 57-year-old lady tells me she has a history of colitis. She had a CT scan of the abdomen last Tuesday when she went to the ER; that was because she was having profound diarrhea and has a history of colitis. Her diarrhea persisted since that time. It looks like her baseline creatinine is anywhere from about 0.7 to 1. There are a couple of outliers, one from November 2 years ago when her creatinine was as high as 4.85. When she came in this time, it was 2.38, and by this morning with some rehydration with just IV fluids, it is down to 1.07. She is feeling somewhat better. She was passing out at home. She has valvular heart disease and was scheduled to see Dr. Bill Garibay at [facility] on Tuesday regarding valve replacement surgery. She does not feel dizzy today and does not feel like she is going to pass out. She is able to eat and drink. The diarrhea persists, but it seems not to be as active. Her last urine was from this past July and it showed just trace proteinuria. PAST MEDICAL HISTORY: Significant for valvular heart disease affecting both her mitral valve and tricuspid valve. Again, she is being evaluated for replacement surgery. She has had hypertension, dyslipidemia and colitis of some sort. SURGICAL HISTORY: She has really not had any surgery she tells me. ALLERGIES: SHE STATES SHE IS ALLERGIC TO BROMPHENIRAMINE, DEXTROMETHORPHAN CEFTRIAXONE. HOME MEDICATIONS: Included: 1. Oxycodone. 2. Lisinopril. 3. Ciprofloxacin. 4. Gabapentin. 5. Topiramate. 6. Pantoprazole. 7. Metronidazole. 8. Advair. 9. Aspirin. 10. Alprazolam. 11. Sucralfate. 12. Albuterol 13. Tizanidine. FAMILY HISTORY: In this case is irrelevant. SOCIAL HISTORY: She quit smoking about 4 years ago. She stopped drinking alcohol about 4 months ago. She was not drinking a lot even then, just occasionally. She has a remote history of cocaine abuse for over 20 years ago according to her history. PHYSICAL EXAMINATION: VITAL SIGNS: Her blood pressure is 93/56, pulse 89, respirations 20, temperature 97.9. GENERAL: She is a thin, alert lady lying in bed. She looks much older than her stated age of 57. HEENT: Normocephalic. Scar over the left frontal area. I did not ask her what that was from. Pupils are round, react to light and accommodation. NECK: No nodes, JVD, goiter or bruits. LUNGS: Clear to auscultation. HEART: Regular rate and rhythm. ABDOMEN: Soft and nontender. Bowel sounds are hyperactive. EXTREMITIES: She has no edema. Her radial pulses are 3+. Dorsalis pedis and posterior tibials are 2+. NEUROLOGIC: Nonlateralizing. LABORATORY AND ANCILLARY DATA: Her most recent sodium is 142, potassium 4.1, chloride 116, CO2 17, urea nitrogen 48 and creatinine 1.07, down from 2.3 yesterday. IMPRESSION AND PLAN: Acute kidney injury due to volume depletion. It looks like this is primarily due to her diarrhea and has mostly resolved right now with aggressive rehydration. I think it is important looking forward to make sure that she is not still having diarrhea before we stop her IV fluids. The composition of those IV fluids should chloride-poor and bicarbonate-rich since she still has a metabolic acidosis. I do see that the composition of those fluids has been changed from admission. It had been normal saline and it looks like she has half-normal saline now that is just about to be hung, with 50 mEq of sodium bicarbonate. I might opt for something more like D5W with 100 mEq of sodium bicarbonate, but there is nothing wrong with the fluids she is prescribed now either. I think we will see what that does between today and tomorrow, and if we need to make changes, we will. Dictated By: Joe De Oliveira MD 10/09/[id number] Dictated Date/Time: 10/02/17 1207 Transcribed Date/Time: 10/02/17 1351 Normal [facility] REPORT OF CONSULTATION [address] [place] [address] REPORT OF CONSULTATION : [id number] Signed Name: BLAS LUJAN MRUN: [id number] : 1960 Loc: 2S Age / Sex: 57/ F Adm Status: ADM IN Adm Date:10/01/17 Room/Bed: [facility] DATE OF ADMISSION: 10/01/2017. DATE OF SERVICE: 10/02/2017. REASON FOR CONSULTATION: Syncope. PRIMARY [place] [employer] ATTENDANT: Dr. Cesar. HISTORY OF PRESENT ILLNESS: This is a 57-year-old female with known history of severe mitral valve prolapse with severe MR, normal LV function, status post recent BERTHA. Patient is scheduled for mitral valve repair with Dr. Garibay at [place]. She is scheduled on this coming Tuesday with him. Patient has presented to the hospital with multiple recurrent syncopal episodes. According to the patient, for the past 2 weeks, she has been having severe diarrhea and at times they are black in color with some chills and abdominal pain. She states that she was seen by her primary care physician and had given her 2 p.o. antibiotics for her ongoing diarrhea. She states that in those 2 weeks, she has also presented to the ER for the same symptoms and was subsequently discharged. She states that, due to her ongoing symptoms not resolving, then for the past day she has been having recurrent syncopal episodes and feeling really weak. She is denying any palpitations. No chest pain, no shortness of breath, no edema. The patient stated that she has had a GI workup last year and she had endoscopy done last year, as well. Since admission, the patient states that she is feeling a little bit better, but still feels really weak. She has no other complaints. PAST MEDICAL HISTORY: 1. Severe mitral valve regurgitation secondary to mitral valve prolapse. 2. Hypertension. 3. Hyperlipidemia. 4. History of colitis. 5. Gastroesophageal reflux disease. PAST SURGICAL HISTORY: 1. The patient had a cardiac catheterization done last year. 2. Thoracentesis. ALLERGIES: PLEASE SEE ATTACHED LIST. HOME MEDICATIONS: 1. Lisinopril. 2. Ciprofloxacin. 3. Albuterol. 4. Carafate. 5. Xanax. 6. Aspirin. 7. Flagyl. 8. Protonix. 9. Gabapentin. 10. Topiramate. 11. Advair. 12. Oxycodone. IMMUNIZATIONS: The patient is up-to-date with her immunizations. SOCIAL HISTORY: The patient is a former smoker. Denies any IV drug use, also denies any high large quantity of alcohol. FAMILY HISTORY: Significant for diabetes, hypertension. REVIEW OF SYSTEMS: All systems reviewed were negative, except as per HPI. CODE STATUS: The patient is a FULL CODE. PHYSICAL EXAMINATION: GENERAL APPEARANCE: The patient does not seem to be in any distress. VITAL SIGNS: Afebrile, T-max of 97.9, blood pressure 93/56, heart rate of 89 beats per minute, saturating 98% on room air. HEAD/NECK: No JVD. No goiter. No bruit. CARDIOVASCULAR: Normal S1, S2 sounds. No friction, no rubs. Grade 3 systolic ejection murmur noted. No S3 or S4 heart sounds. LUNGS: Clear breath sounds. ABDOMEN: Soft, mild, diffuse tenderness. EXTREMITIES: No edema. No rash. PSYCHIATRIC: Negative for anxiety or depression. Alert and oriented x3. NEUROLOGIC: Cranial nerves 2-12 grossly intact. No lateralizing signs. LABORATORIES AND IMAGING: Hemoglobin on presentation was 10, today it is 8.5, hematocrit 31.4 to 26. Platelet count 245, today is 206. Sodium 142, potassium was 5.9 upon presentation. BUN 77, creatinine 2.38. This is all acute. Glucose 104. Troponins x3 negative. BNP is 100. CT of the brain is unremarkable. Chest x-ray shows no acute cardiopulmonary process. EKG shows sinus rhythm with a heart rate of 82 beats per minute. ASSESSMENT AND PLAN: A 57-year-old female with known history of severe mitral regurgitation due to mitral valve prolapse, pending mitral valve repair. She has presented with 2 weeks of diarrhea with black stools, has presented with recurrent multiple syncopal episodes, most likely secondary to dehydration and possibly acute blood loss anemia. Agree with primary care's assessment and management with IV hydration and antibiotics. Also would recommend for GI consult to further assess for possible acute blood loss anemia versus dilutional drop of hemoglobin due to aggressive hydration. We will discontinue echocardiogram due to the patient recently having a BERTHA done already. No further cardiac workup indicated at this time. From cardiac standpoint, the patient is stable. DISPOSITION: As per the patient's clinical improvement, no further cardiac workup indicated at this time. We will sign off at this time. Please call with any questions. Thank you for the consult. Dictated By: Zaira Russo MD 10/02/17 1444 10/02/17 1444 Dictated Date/Time: 10/02/17 1136 Transcribed Date/Time: 10/02/17 1318 Normal [facility] REPORT OF CONSULTATION [address] [place] [address] REPORT OF CONSULTATION : [id number] Signed [id number] MRUN: [id number] : 1960 Loc: 2S Age / Sex: 57/ F Adm Status: ADM IN Adm Date:10/01/17 Room/Bed: [facility] DATE: 10/02/2017. HISTORY OF PRESENT ILLNESS: I am asked to see Blas in consultation for blood per rectum and decreased hemoglobin. I reviewed the chart. I also reviewed an operative report from Dr. Jama from April 2017 where he did an upper and lower endoscopy. Colonoscopy was normal. EGD was normal. He made a comment that she may benefit from a PillCam evaluation of the small bowel if she would have persistent symptoms. She also had an EGD by Dr. Sheikh in February 2017 showing some gastritis. She is on daily aspirin and she is on omeprazole and Carafate at home as well. She was admitted with diarrhea, dehydration and acute renal failure. Her creatinine has resolved. Her BUN remains elevated. Her hemoglobin did decrease from 10 to 8.5 but I suspect some of this is due to dehydration. She does have a decreased MCV consistent with iron deficiency. She denies to me that she saw any blood, but nursing staff reports there was some visible blood in her stool. She denies nausea or vomiting. She had a syncopal episode. She also complained of headache, neck pain, chest pain. She also has severe valvular heart disease and is supposed to see a surgeon in [place] to discuss surgical repair. PAST MEDICAL HISTORY: As above, plus hypertension and hyperlipidemia. FAMILY HISTORY: Positive for hypertension, diabetes. SOCIAL HISTORY: She is an ex-smoker, recently quit drinking. ALLERGIES: REVIEWED. MEDICATIONS: As above. REVIEW OF SYSTEMS: A total of 12 systems reviewed, otherwise negative. PHYSICAL EXAMINATION: GENERAL: She is awake, alert, oriented, in no acute distress. VITAL SIGNS: Height 5 feet 3 inches, weight 57.8 kg. Temperature 97.9, pulse 89, respirations 20, blood pressure 93/56, oxygen saturation 98% on room air. HEENT: Normocephalic. Sclerae are white. NECK: Supple. LUNGS: Clear and symmetric. HEART: Regular rate and rhythm. ABDOMEN: Soft, nontender. SKIN: Warm and dry. NEURO: Without focal deficits. LABORATORY STUDIES: Reviewed. She did have a negative Hemoccult on admission. ASSESSMENT AND PLAN: The patient was admitted with dehydration, diarrhea and microcytic anemia. She has had recent upper and lower endoscopy. I am concerned that she may still be dehydrated and would not do well with a colonoscopy prep right now. I discussed this case with the hospitalist and will plan on doing a small bowel PillCam endoscopy tomorrow. Dictated By: Sukhdeep Simpson MD 10/02/17 1434 10/02/17 1434 Dictated Date/Time: 10/02/17 1134 Transcribed Date/Time: 10/02/17 1151 Normal [facility] TROPONIN Ion 10-02-2017 Troponin I.cardiac mass conc ng/mL Normal 0.0-0.03 [facility] Comment on above: Result Comment: Refe rence Interval < or = 0.03 ng/mLClinical Correlation Needed 0.03 - 0.12 ng/mLAMI Cutoff, Presumptive = or > 0.12 ng/mL Performed By: #### C REAT-EGFR, SEC CALL ####Main Lab - [id number] [place], [place] [address] Troponin I.cardiac mass conc ng/mL Normal 0.0-0.03 [facility] Comment on above: Order Comment: @ COL L DATE was changed from 10/01/17 to 10/02/17@ by [id number]. Old specimen was [id number]. Result Comment: Refe rence Interval < or = 0.03 ng/mLClinical Correlation Needed 0.03 - 0.12 ng/mLAMI Cutoff, Presumptive = or > 0.12 ng/mL Performed By: #### C REAT-EGFR, SEC CALL ####Main Lab - [id number] [place], [place] [address] VENOUS PHon 10-02-2017 VENOUS PH 7.22 Units Low 7.32-7.42 [facility] Comment on above: Order Comment: [place] rature 96.1 F Performed By: #### C REAT-EGFR, SEC CALL ####Main Lab - [id number] [place], [place] [address] ANISOCYTOSISon 10-01-2017 Anisocytosis presence 2+ Abnormal [facility] Comment on above: Order Comment: @11/13: SMUDGE CELLS added. RFLXG = MORPH.@10/01/172108: GIANT PLATELETS added. RFLXG = MORPH.@10/01/172108: POLYCHROM added. RFLXG = MORPH.@10/01/172108: HYPERCHROM added. RFLXG = MORPH.@10/01/172108: HYPOCHROM added. RFLXG = MORPH.@10/01/172108: POIK added. RFLXG = MORPH.@10/01/172108: BASO STIP added. RFLXG = MORPH.@10/01/172108: ANISO added. RFLXG = MORPH.@10/01/172108: MICRO added. RFLXG = MORPH.@10/01/172108: MACRO added. RFLXG = MORPH.@10/01/172108: SPHERE added. RFLXG = MORPH.@10/01/172108: ELLIPTO added. RFLXG = MORPH.@10/01/172108: SIDEROCYTE added. RFLXG = MORPH.@10/01/172108: ADARSH BODIES added. RFLXG = MORPH.@10/01/172108: PELGER-HUET added. RFLXG = MORPH.@10/01/172108: ANA LILIA BODIES added. RFLXG = MORPH.@10/01/172108: SICKLE added. RFLXG = MORPH.@10/01/172108: TARGET added. RFLXG = MORPH.@10/01/172108: TEAR added. RFLXG = MORPH.@10/01/172108: OVAL added. RFLXG = MORPH.@10/01/172108: STOMATO added. RFLXG = MORPH.@10/01/172108: HELMET CELLS added. RFLXG = MORPH.@10/01/172108: HJ BODIES added. RFLXG = MORPH.@10/01/172108: TOXIC GRAN added. RFLXG = MORPH.@10/01/172108: TOXIC VAC added. RFLXG = MORPH.@10/01/172108: DOHLE BODIES added. RFLXG = MORPH.@10/01/172108: NIMISHA CELLS added. RFLXG = MORPH.@10/01/172108: CRENATED RBC added. RFLXG = MORPH.@10/01/172108: ACANTHO added. RFLXG = MORPH.@10/01/172108: ROLY RODS added. RFLXG = MORPH.@10/01/172108: ROULEAUX added. RFLXG = MORPH.@10/01/172108: SCHISTO added. RFLXG = MORPH.@10/01/172108: PARASITES added. RFLXG = MORPH. Performed By: #### C OLIVIER-EGFR, SEC CALL ####Main Lab - [id number] [place] [address] B-TYPE NATRIURETIC PEPTIDEon 10-01-2017 BNP 100 pg/mL High 0-99 [facility] Comment on above: Result Comment: BNP Reference Heyxmuyln203-293 pg/mL: Indeterminate range. > 400 pg/mL: Very high probability of myocardial strain/failure. Performed By: #### C REAT-EGFR, SEC CALL ####Main Lab - [id number] [place], [place] [address] CBC WITH AUTO DIFFon 018 Basophils Auto #/vol (Bld) 0.2 10 3/uL Normal 0.0-0.2 [facility] Comment on above: Order Comment: @11/13: SMUDGE CELLS added. RFLXG = MORPH.@10/01/172108: GIANT PLATELETS added. RFLXG = MORPH.@10/01/172108: POLYCHROM added. RFLXG = MORPH.@10/01/172108: HYPERCHROM added. RFLXG = MORPH.@10/01/172108: HYPOCHROM added. RFLXG = MORPH.@10/01/172108: POIK added. RFLXG = MORPH.@10/01/172108: BASO STIP added. RFLXG = MORPH.@10/01/172108: ANISO added. RFLXG = MORPH.@10/01/172108: MICRO added. RFLXG = MORPH.@10/01/172108: MACRO added. RFLXG = MORPH.@10/01/172108: SPHERE added. RFLXG = MORPH.@10/01/172108: ELLIPTO added. RFLXG = MORPH.@10/01/172108: SIDEROCYTE added. RFLXG = MORPH.@10/01/172108: ADARSH BODIES added. RFLXG = MORPH.@10/01/172108: PELGER-HUET added. RFLXG = MORPH.@10/01/172108: ANA LILIA BODIES added. RFLXG = MORPH.@10/01/172108: SICKLE added. RFLXG = MORPH.@10/01/172108: TARGET added. RFLXG = MORPH.@10/01/172108: TEAR added. RFLXG = MORPH.@10/01/172108: OVAL added. RFLXG = MORPH.@10/01/172108: STOMATO added. RFLXG = MORPH.@10/01/172108: HELMET CELLS added. RFLXG = MORPH.@10/01/172108: HJ BODIES added. RFLXG = MORPH.@10/01/172108: TOXIC GRAN added. RFLXG = MORPH.@10/01/172108: TOXIC VAC added. RFLXG = MORPH.@10/01/172108: DOHLE BODIES added. RFLXG = MORPH.@10/01/172108: NIMISHA CELLS added. RFLXG = MORPH.@10/01/172108: CRENATED RBC added. RFLXG = MORPH.@10/01/172108: ACANTHO added. RFLXG = MORPH.@10/01/172108: ROLY RODS added. RFLXG = MORPH.@10/01/172108: ROULEAUX added. RFLXG = MORPH.@10/01/172108: SCHISTO added. RFLXG = MORPH.@10/01/172108: PARASITES added. RFLXG = MORPH. Performed By: #### C REAT-EGFR, SEC CALL ####Main Lab - [id number] [place], [place] [address] Basophils/100 WBC Auto (Bld) 1.6 % High 0.0-1.0 [facility] Comment on above: Order Comment: @11/13: SMUDGE CELLS added. RFLXG = MORPH.@10/01/172108: GIANT PLATELETS added. RFLXG = MORPH.@10/01/172108: POLYCHROM added. RFLXG = MORPH.@10/01/172108: HYPERCHROM added. RFLXG = MORPH.@10/01/172108: HYPOCHROM added. RFLXG = MORPH.@10/01/172108: POIK added. RFLXG = MORPH.@10/01/172108: BASO STIP added. RFLXG = MORPH.@10/01/172108: ANISO added. RFLXG = MORPH.@10/01/172108: MICRO added. RFLXG = MORPH.@10/01/172108: MACRO added. RFLXG = MORPH.@10/01/172108: SPHERE added. RFLXG = MORPH.@10/01/172108: ELLIPTO added. RFLXG = MORPH.@10/01/172108: SIDEROCYTE added. RFLXG = MORPH.@10/01/172108: ADARSH BODIES added. RFLXG = MORPH.@10/01/172108: PELGER-HUET added. RFLXG = MORPH.@10/01/172108: ANA LILIA BODIES added. RFLXG = MORPH.@10/01/172108: SICKLE added. RFLXG = MORPH.@10/01/172108: TARGET added. RFLXG = MORPH.@10/01/172108: TEAR added. RFLXG = MORPH.@10/01/172108: OVAL added. RFLXG = MORPH.@10/01/172108: STOMATO added. RFLXG = MORPH.@10/01/172108: HELMET CELLS added. RFLXG = MORPH.@10/01/172108: HJ BODIES added. RFLXG = MORPH.@10/01/172108: TOXIC GRAN added. RFLXG = MORPH.@10/01/172108: TOXIC VAC added. RFLXG = MORPH.@10/01/172108: DOHLE BODIES added. RFLXG = MORPH.@10/01/172108: NIMISHA CELLS added. RFLXG = MORPH.@10/01/172108: CRENATED RBC added. RFLXG = MORPH.@10/01/172108: ACANTHO added. RFLXG = MORPH.@10/01/172108: ROLY RODS added. RFLXG = MORPH.@10/01/172108: ROULEAUX added. RFLXG = MORPH.@10/01/172108: SCHISTO added. RFLXG = MORPH.@10/01/172108: PARASITES added. RFLXG = MORPH. Performed By: #### C REAT-EGFR, SEC CALL ####Main Lab - [id number] [place], [place] [address] Eosinophils 0.4 10 3/uL Normal 0.0-0.7 [facility] Comment on above: Order Comment: @11/13: SMUDGE CELLS added. RFLXG = MORPH.@10/01/172108: GIANT PLATELETS added. RFLXG = MORPH.@10/01/172108: POLYCHROM added. RFLXG = MORPH.@10/01/172108: HYPERCHROM added. RFLXG = MORPH.@10/01/172108: HYPOCHROM added. RFLXG = MORPH.@10/01/172108: POIK added. RFLXG = MORPH.@10/01/172108: BASO STIP added. RFLXG = MORPH.@10/01/172108: ANISO added. RFLXG = MORPH.@10/01/172108: MICRO added. RFLXG = MORPH.@10/01/172108: MACRO added. RFLXG = MORPH.@10/01/172108: SPHERE added. RFLXG = MORPH.@10/01/172108: ELLIPTO added. RFLXG = MORPH.@10/01/172108: SIDEROCYTE added. RFLXG = MORPH.@10/01/172108: ADARSH BODIES added. RFLXG = MORPH.@10/01/172108: PELGER-HUET added. RFLXG = MORPH.@10/01/172108: ANA LILIA BODIES added. RFLXG = MORPH.@10/01/172108: SICKLE added. RFLXG = MORPH.@10/01/172108: TARGET added. RFLXG = MORPH.@10/01/172108: TEAR added. RFLXG = MORPH.@10/01/172108: OVAL added. RFLXG = MORPH.@10/01/172108: STOMATO added. RFLXG = MORPH.@10/01/172108: HELMET CELLS added. RFLXG = MORPH.@10/01/172108: HJ BODIES added. RFLXG = MORPH.@10/01/172108: TOXIC GRAN added. RFLXG = MORPH.@10/01/172108: TOXIC VAC added. RFLXG = MORPH.@10/01/172108: DOHLE BODIES added. RFLXG = MORPH.@10/01/172108: NIMISHA CELLS added. RFLXG = MORPH.@10/01/172108: CRENATED RBC added. RFLXG = MORPH.@10/01/172108: ACANTHO added. RFLXG = MORPH.@10/01/172108: ROLY RODS added. RFLXG = MORPH.@10/01/172108: ROULEAUX added. RFLXG = MORPH.@10/01/172108: SCHISTO added. RFLXG = MORPH.@10/01/172108: PARASITES added. RFLXG = MORPH. Performed By: #### C REAT-EGFR, SEC CALL ####Main Lab - [id number] [place], [place] [address] Eosinophils/100 leukocytes 4.2 % Normal 0.0-5.0 [facility] Comment on above: Order Comment: @11/13: SMUDGE CELLS added. RFLXG = MORPH.@10/01/172108: GIANT PLATELETS added. RFLXG = MORPH.@10/01/172108: POLYCHROM added. RFLXG = MORPH.@10/01/172108: HYPERCHROM added. RFLXG = MORPH.@10/01/172108: HYPOCHROM added. RFLXG = MORPH.@10/01/172108: POIK added. RFLXG = MORPH.@10/01/172108: BASO STIP added. RFLXG = MORPH.@10/01/172108: ANISO added. RFLXG = MORPH.@10/01/172108: MICRO added. RFLXG = MORPH.@10/01/172108: MACRO added. RFLXG = MORPH.@10/01/172108: SPHERE added. RFLXG = MORPH.@10/01/172108: ELLIPTO added. RFLXG = MORPH.@10/01/172108: SIDEROCYTE added. RFLXG = MORPH.@10/01/172108: ADARSH BODIES added. RFLXG = MORPH.@10/01/172108: PELGER-HUET added. RFLXG = MORPH.@10/01/172108: ANA LILIA BODIES added. RFLXG = MORPH.@10/01/172108: SICKLE added. RFLXG = MORPH.@10/01/172108: TARGET added. RFLXG = MORPH.@10/01/172108: TEAR added. RFLXG = MORPH.@10/01/172108: OVAL added. RFLXG = MORPH.@10/01/172108: STOMATO added. RFLXG = MORPH.@10/01/172108: HELMET CELLS added. RFLXG = MORPH.@10/01/172108: HJ BODIES added. RFLXG = MORPH.@10/01/172108: TOXIC GRAN added. RFLXG = MORPH.@10/01/172108: TOXIC VAC added. RFLXG = MORPH.@10/01/172108: DOHLE BODIES added. RFLXG = MORPH.@10/01/172108: NIMISHA CELLS added. RFLXG = MORPH.@10/01/172108: CRENATED RBC added. RFLXG = MORPH.@10/01/172108: ACANTHO added. RFLXG = MORPH.@10/01/172108: ROLY RODS added. RFLXG = MORPH.@10/01/172108: ROULEAUX added. RFLXG = MORPH.@10/01/172108: SCHISTO added. RFLXG = MORPH.@10/01/172108: PARASITES added. RFLXG = MORPH. Performed By: #### C REAT-EGFR, SEC CALL ####Main Lab - [id number] [place], [place] [address] Erythrocyte distribution width Auto Ratio (RBC) 32.6 % High 11.5-14.0 [facility] Comment on above: Order Comment: @11/13: SMUDGE CELLS added. RFLXG = MORPH.@10/01/172108: GIANT PLATELETS added. RFLXG = MORPH.@10/01/172108: POLYCHROM added. RFLXG = MORPH.@10/01/172108: HYPERCHROM added. RFLXG = MORPH.@10/01/172108: HYPOCHROM added. RFLXG = MORPH.@10/01/172108: POIK added. RFLXG = MORPH.@10/01/172108: BASO STIP added. RFLXG = MORPH.@10/01/172108: ANISO added. RFLXG = MORPH.@10/01/172108: MICRO added. RFLXG = MORPH.@10/01/172108: MACRO added. RFLXG = MORPH.@10/01/172108: SPHERE added. RFLXG = MORPH.@10/01/172108: ELLIPTO added. RFLXG = MORPH.@10/01/172108: SIDEROCYTE added. RFLXG = MORPH.@10/01/172108: ADARSH BODIES added. RFLXG = MORPH.@10/01/172108: PELGER-HUET added. RFLXG = MORPH.@10/01/172108: ANA LILIA BODIES added. RFLXG = MORPH.@10/01/172108: SICKLE added. RFLXG = MORPH.@10/01/172108: TARGET added. RFLXG = MORPH.@10/01/172108: TEAR added. RFLXG = MORPH.@10/01/172108: OVAL added. RFLXG = MORPH.@10/01/172108: STOMATO added. RFLXG = MORPH.@10/01/172108: HELMET CELLS added. RFLXG = MORPH.@10/01/172108: HJ BODIES added. RFLXG = MORPH.@10/01/172108: TOXIC GRAN added. RFLXG = MORPH.@10/01/172108: TOXIC VAC added. RFLXG = MORPH.@10/01/172108: DOHLE BODIES added. RFLXG = MORPH.@10/01/172108: NIMISHA CELLS added. RFLXG = MORPH.@10/01/172108: CRENATED RBC added. RFLXG = MORPH.@10/01/172108: ACANTHO added. RFLXG = MORPH.@10/01/172108: ROLY RODS added. RFLXG = MORPH.@10/01/172108: ROULEAUX added. RFLXG = MORPH.@10/01/172108: SCHISTO added. RFLXG = MORPH.@10/01/172108: PARASITES added. RFLXG = MORPH. Performed By: #### C REAT-EGFR, SEC CALL ####Main Lab - [id number] [place], [place] [address] Erythrocytes (RBC) 4.43 x10 6/uL Normal 3.89-5.30 [facility] Comment on above: Order Comment: @11/13: SMUDGE CELLS added. RFLXG = MORPH.@10/01/172108: GIANT PLATELETS added. RFLXG = MORPH.@10/01/172108: POLYCHROM added. RFLXG = MORPH.@10/01/172108: HYPERCHROM added. RFLXG = MORPH.@10/01/172108: HYPOCHROM added. RFLXG = MORPH.@10/01/172108: POIK added. RFLXG = MORPH.@10/01/172108: BASO STIP added. RFLXG = MORPH.@10/01/172108: ANISO added. RFLXG = MORPH.@10/01/172108: MICRO added. RFLXG = MORPH.@10/01/172108: MACRO added. RFLXG = MORPH.@10/01/172108: SPHERE added. RFLXG = MORPH.@10/01/172108: ELLIPTO added. RFLXG = MORPH.@10/01/172108: SIDEROCYTE added. RFLXG = MORPH.@10/01/172108: ADARSH BODIES added. RFLXG = MORPH.@10/01/172108: PELGER-HUET added. RFLXG = MORPH.@10/01/172108: ANA LILIA BODIES added. RFLXG = MORPH.@10/01/172108: SICKLE added. RFLXG = MORPH.@10/01/172108: TARGET added. RFLXG = MORPH.@10/01/172108: TEAR added. RFLXG = MORPH.@10/01/172108: OVAL added. RFLXG = MORPH.@10/01/172108: STOMATO added. RFLXG = MORPH.@10/01/172108: HELMET CELLS added. RFLXG = MORPH.@10/01/172108: HJ BODIES added. RFLXG = MORPH.@10/01/172108: TOXIC GRAN added. RFLXG = MORPH.@10/01/172108: TOXIC VAC added. RFLXG = MORPH.@10/01/172108: DOHLE BODIES added. RFLXG = MORPH.@10/01/172108: NIMISHA CELLS added. RFLXG = MORPH.@10/01/172108: CRENATED RBC added. RFLXG = MORPH.@10/01/172108: ACANTHO added. RFLXG = MORPH.@10/01/172108: ROLY RODS added. RFLXG = MORPH.@10/01/172108: ROULEAUX added. RFLXG = MORPH.@10/01/172108: SCHISTO added. RFLXG = MORPH.@10/01/172108: PARASITES added. RFLXG = MORPH. Performed By: #### C REAT-EGFR, SEC CALL ####Main Lab - [id number] [place], [place] [address] Hematocrit (HCT) 31.4 % Low 34.8-45.0 [facility] Comment on above: Order Comment: @11/13: SMUDGE CELLS added. RFLXG = MORPH.@10/01/172108: GIANT PLATELETS added. RFLXG = MORPH.@10/01/172108: POLYCHROM added. RFLXG = MORPH.@10/01/172108: HYPERCHROM added. RFLXG = MORPH.@10/01/172108: HYPOCHROM added. RFLXG = MORPH.@10/01/172108: POIK added. RFLXG = MORPH.@10/01/172108: BASO STIP added. RFLXG = MORPH.@10/01/172108: ANISO added. RFLXG = MORPH.@10/01/172108: MICRO added. RFLXG = MORPH.@10/01/172108: MACRO added. RFLXG = MORPH.@10/01/172108: SPHERE added. RFLXG = MORPH.@10/01/172108: ELLIPTO added. RFLXG = MORPH.@10/01/172108: SIDEROCYTE added. RFLXG = MORPH.@10/01/172108: ADARSH BODIES added. RFLXG = MORPH.@10/01/172108: PELGER-HUET added. RFLXG = MORPH.@10/01/172108: ANA LILIA BODIES added. RFLXG = MORPH.@10/01/172108: SICKLE added. RFLXG = MORPH.@10/01/172108: TARGET added. RFLXG = MORPH.@10/01/172108: TEAR added. RFLXG = MORPH.@10/01/172108: OVAL added. RFLXG = MORPH.@10/01/172108: STOMATO added. RFLXG = MORPH.@10/01/172108: HELMET CELLS added. RFLXG = MORPH.@10/01/172108: HJ BODIES added. RFLXG = MORPH.@10/01/172108: TOXIC GRAN added. RFLXG = MORPH.@10/01/172108: TOXIC VAC added. RFLXG = MORPH.@10/01/172108: DOHLE BODIES added. RFLXG = MORPH.@10/01/172108: NIMISHA CELLS added. RFLXG = MORPH.@10/01/172108: CRENATED RBC added. RFLXG = MORPH.@10/01/172108: ACANTHO added. RFLXG = MORPH.@10/01/172108: ROLY RODS added. RFLXG = MORPH.@10/01/172108: ROULEAUX added. RFLXG = MORPH.@10/01/172108: SCHISTO added. RFLXG = MORPH.@10/01/172108: PARASITES added. RFLXG = MORPH. Performed By: #### C REAT-EGFR, SEC CALL ####Main Lab - [id number] [place] [address] Hemoglobin mass conc (Bld) 10.0 g/dL Low 11.6-14.9 [facility] Comment on above: Order Comment: @11/13: SMUDGE CELLS added. RFLXG = MORPH.@10/01/172108: GIANT PLATELETS added. RFLXG = MORPH.@10/01/172108: POLYCHROM added. RFLXG = MORPH.@10/01/172108: HYPERCHROM added. RFLXG = MORPH.@10/01/172108: HYPOCHROM added. RFLXG = MORPH.@10/01/172108: POIK added. RFLXG = MORPH.@10/01/172108: BASO STIP added. RFLXG = MORPH.@10/01/172108: ANISO added. RFLXG = MORPH.@10/01/172108: MICRO added. RFLXG = MORPH.@10/01/172108: MACRO added. RFLXG = MORPH.@10/01/172108: SPHERE added. RFLXG = MORPH.@10/01/172108: ELLIPTO added. RFLXG = MORPH.@10/01/172108: SIDEROCYTE added. RFLXG = MORPH.@10/01/172108: ADARSH BODIES added. RFLXG = MORPH.@10/01/172108: PELGER-HUET added. RFLXG = MORPH.@10/01/172108: ANA LILIA BODIES added. RFLXG = MORPH.@10/01/172108: SICKLE added. RFLXG = MORPH.@10/01/172108: TARGET added. RFLXG = MORPH.@10/01/172108: TEAR added. RFLXG = MORPH.@10/01/172108: OVAL added. RFLXG = MORPH.@10/01/172108: STOMATO added. RFLXG = MORPH.@10/01/172108: HELMET CELLS added. RFLXG = MORPH.@10/01/172108: HJ BODIES added. RFLXG = MORPH.@10/01/172108: TOXIC GRAN added. RFLXG = MORPH.@10/01/172108: TOXIC VAC added. RFLXG = MORPH.@10/01/172108: DOHLE BODIES added. RFLXG = MORPH.@10/01/172108: NIMISHA CELLS added. RFLXG = MORPH.@10/01/172108: CRENATED RBC added. RFLXG = MORPH.@10/01/172108: ACANTHO added. RFLXG = MORPH.@10/01/172108: ROLY RODS added. RFLXG = MORPH.@10/01/172108: ROULEAUX added. RFLXG = MORPH.@10/01/172108: SCHISTO added. RFLXG = MORPH.@10/01/172108: PARASITES added. RFLXG = MORPH. Performed By: #### C REAT-EGFR, SEC CALL ####Main Lab - [id number] [place], [place] [address] Lymphocytes 1.5 10 3/uL Normal 1.0-3.5 [facility] Comment on above: Order Comment: @11/13: SMUDGE CELLS added. RFLXG = MORPH.@10/01/172108: GIANT PLATELETS added. RFLXG = MORPH.@10/01/172108: POLYCHROM added. RFLXG = MORPH.@10/01/172108: HYPERCHROM added. RFLXG = MORPH.@10/01/172108: HYPOCHROM added. RFLXG = MORPH.@10/01/172108: POIK added. RFLXG = MORPH.@10/01/172108: BASO STIP added. RFLXG = MORPH.@10/01/172108: ANISO added. RFLXG = MORPH.@10/01/172108: MICRO added. RFLXG = MORPH.@10/01/172108: MACRO added. RFLXG = MORPH.@10/01/172108: SPHERE added. RFLXG = MORPH.@10/01/172108: ELLIPTO added. RFLXG = MORPH.@10/01/172108: SIDEROCYTE added. RFLXG = MORPH.@10/01/172108: ADARSH BODIES added. RFLXG = MORPH.@10/01/172108: PELGER-HUET added. RFLXG = MORPH.@10/01/172108: ANA LILIA BODIES added. RFLXG = MORPH.@10/01/172108: SICKLE added. RFLXG = MORPH.@10/01/172108: TARGET added. RFLXG = MORPH.@10/01/172108: TEAR added. RFLXG = MORPH.@10/01/172108: OVAL added. RFLXG = MORPH.@10/01/172108: STOMATO added. RFLXG = MORPH.@10/01/172108: HELMET CELLS added. RFLXG = MORPH.@10/01/172108: HJ BODIES added. RFLXG = MORPH.@10/01/172108: TOXIC GRAN added. RFLXG = MORPH.@10/01/172108: TOXIC VAC added. RFLXG = MORPH.@10/01/172108: DOHLE BODIES added. RFLXG = MORPH.@10/01/172108: NIMISHA CELLS added. RFLXG = MORPH.@10/01/172108: CRENATED RBC added. RFLXG = MORPH.@10/01/172108: ACANTHO added. RFLXG = MORPH.@10/01/172108: ROLY RODS added. RFLXG = MORPH.@10/01/172108: ROULEAUX added. RFLXG = MORPH.@10/01/172108: SCHISTO added. RFLXG = MORPH.@10/01/172108: PARASITES added. RFLXG = MORPH. Performed By: #### C REAT-EGFR, SEC CALL ####[facility] - [id number] [place], [place] [address] Lymphocytes/100 leukocytes 15.5 % Low 24.0-44.0 [facility] Comment on above: Order Comment: @11/13: SMUDGE CELLS added. RFLXG = MORPH.@10/01/172108: GIANT PLATELETS added. RFLXG = MORPH.@10/01/172108: POLYCHROM added. RFLXG = MORPH.@10/01/172108: HYPERCHROM added. RFLXG = MORPH.@10/01/172108: HYPOCHROM added. RFLXG = MORPH.@10/01/172108: POIK added. RFLXG = MORPH.@10/01/172108: BASO STIP added. RFLXG = MORPH.@10/01/172108: ANISO added. RFLXG = MORPH.@10/01/172108: MICRO added. RFLXG = MORPH.@10/01/172108: MACRO added. RFLXG = MORPH.@10/01/172108: SPHERE added. RFLXG = MORPH.@10/01/172108: ELLIPTO added. RFLXG = MORPH.@10/01/172108: SIDEROCYTE added. RFLXG = MORPH.@10/01/172108: ADARSH BODIES added. RFLXG = MORPH.@10/01/172108: PELGER-HUET added. RFLXG = MORPH.@10/01/172108: ANA LILIA BODIES added. RFLXG = MORPH.@10/01/172108: SICKLE added. RFLXG = MORPH.@10/01/172108: TARGET added. RFLXG = MORPH.@10/01/172108: TEAR added. RFLXG = MORPH.@10/01/172108: OVAL added. RFLXG = MORPH.@10/01/172108: STOMATO added. RFLXG = MORPH.@10/01/172108: HELMET CELLS added. RFLXG = MORPH.@10/01/172108: HJ BODIES added. RFLXG = MORPH.@10/01/172108: TOXIC GRAN added. RFLXG = MORPH.@10/01/172108: TOXIC VAC added. RFLXG = MORPH.@10/01/172108: DOHLE BODIES added. RFLXG = MORPH.@10/01/172108: NIMISHA CELLS added. RFLXG = MORPH.@10/01/172108: CRENATED RBC added. RFLXG = MORPH.@10/01/172108: ACANTHO added. RFLXG = MORPH.@10/01/172108: ROLY RODS added. RFLXG = MORPH.@10/01/172108: ROULEAUX added. RFLXG = MORPH.@10/01/172108: SCHISTO added. RFLXG = MORPH.@10/01/172108: PARASITES added. RFLXG = MORPH. Performed By: #### C REAT-EGFR, SEC CALL ####[facility] - [id number] [place], [place] [address] MCH 22.4 pg Low 27.0-31.0 [facility] Comment on above: Order Comment: @11/13: SMUDGE CELLS added. RFLXG = MORPH.@10/01/172108: GIANT PLATELETS added. RFLXG = MORPH.@10/01/172108: POLYCHROM added. RFLXG = MORPH.@10/01/172108: HYPERCHROM added. RFLXG = MORPH.@10/01/172108: HYPOCHROM added. RFLXG = MORPH.@10/01/172108: POIK added. RFLXG = MORPH.@10/01/172108: BASO STIP added. RFLXG = MORPH.@10/01/172108: ANISO added. RFLXG = MORPH.@10/01/172108: MICRO added. RFLXG = MORPH.@10/01/172108: MACRO added. RFLXG = MORPH.@10/01/172108: SPHERE added. RFLXG = MORPH.@10/01/172108: ELLIPTO added. RFLXG = MORPH.@10/01/172108: SIDEROCYTE added. RFLXG = MORPH.@10/01/172108: ADARSH BODIES added. RFLXG = MORPH.@10/01/172108: PELGER-HUET added. RFLXG = MORPH.@10/01/172108: ANA LILIA BODIES added. RFLXG = MORPH.@10/01/172108: SICKLE added. RFLXG = MORPH.@10/01/172108: TARGET added. RFLXG = MORPH.@10/01/172108: TEAR added. RFLXG = MORPH.@10/01/172108: OVAL added. RFLXG = MORPH.@10/01/172108: STOMATO added. RFLXG = MORPH.@10/01/172108: HELMET CELLS added. RFLXG = MORPH.@10/01/172108: HJ BODIES added. RFLXG = MORPH.@10/01/172108: TOXIC GRAN added. RFLXG = MORPH.@10/01/172108: TOXIC VAC added. RFLXG = MORPH.@10/01/172108: DOHLE BODIES added. RFLXG = MORPH.@10/01/172108: NIMISHA CELLS added. RFLXG = MORPH.@10/01/172108: CRENATED RBC added. RFLXG = MORPH.@10/01/172108: ACANTHO added. RFLXG = MORPH.@10/01/172108: ROLY RODS added. RFLXG = MORPH.@10/01/172108: ROULEAUX added. RFLXG = MORPH.@10/01/172108: SCHISTO added. RFLXG = MORPH.@10/01/172108: PARASITES added. RFLXG = MORPH. Performed By: #### C REAT-EGFR, SEC CALL ####[facility] - [id number] [place] [address] MCHC mass conc (RBC) 31.7 g/dL Low 32.0-36.0 [facility] Comment on above: Order Comment: @11/13: SMUDGE CELLS added. RFLXG = MORPH.@10/01/172108: GIANT PLATELETS added. RFLXG = MORPH.@10/01/172108: POLYCHROM added. RFLXG = MORPH.@10/01/172108: HYPERCHROM added. RFLXG = MORPH.@10/01/172108: HYPOCHROM added. RFLXG = MORPH.@10/01/172108: POIK added. RFLXG = MORPH.@10/01/172108: BASO STIP added. RFLXG = MORPH.@10/01/172108: ANISO added. RFLXG = MORPH.@10/01/172108: MICRO added. RFLXG = MORPH.@10/01/172108: MACRO added. RFLXG = MORPH.@10/01/172108: SPHERE added. RFLXG = MORPH.@10/01/172108: ELLIPTO added. RFLXG = MORPH.@10/01/172108: SIDEROCYTE added. RFLXG = MORPH.@10/01/172108: ADARSH BODIES added. RFLXG = MORPH.@10/01/172108: PELGER-HUET added. RFLXG = MORPH.@10/01/172108: ANA LILIA BODIES added. RFLXG = MORPH.@10/01/172108: SICKLE added. RFLXG = MORPH.@10/01/172108: TARGET added. RFLXG = MORPH.@10/01/172108: TEAR added. RFLXG = MORPH.@10/01/172108: OVAL added. RFLXG = MORPH.@10/01/172108: STOMATO added. RFLXG = MORPH.@10/01/172108: HELMET CELLS added. RFLXG = MORPH.@10/01/172108: HJ BODIES added. RFLXG = MORPH.@10/01/172108: TOXIC GRAN added. RFLXG = MORPH.@10/01/172108: TOXIC VAC added. RFLXG = MORPH.@10/01/172108: DOHLE BODIES added. RFLXG = MORPH.@10/01/172108: NIMISHA CELLS added. RFLXG = MORPH.@10/01/172108: CRENATED RBC added. RFLXG = MORPH.@10/01/172108: ACANTHO added. RFLXG = MORPH.@10/01/172108: ROLY RODS added. RFLXG = MORPH.@10/01/172108: ROULEAUX added. RFLXG = MORPH.@10/01/172108: SCHISTO added. RFLXG = MORPH.@10/01/172108: PARASITES added. RFLXG = MORPH. Performed By: #### C REAT-EGFR, SEC CALL ####[facility] - [id number] [place], [place] [address] MCV 70.8 fL Low 78.0-100.0 [facility] Comment on above: Order Comment: @11/13: SMUDGE CELLS added. RFLXG = MORPH.@10/01/172108: GIANT PLATELETS added. RFLXG = MORPH.@10/01/172108: POLYCHROM added. RFLXG = MORPH.@10/01/172108: HYPERCHROM added. RFLXG = MORPH.@10/01/172108: HYPOCHROM added. RFLXG = MORPH.@10/01/172108: POIK added. RFLXG = MORPH.@10/01/172108: BASO STIP added. RFLXG = MORPH.@10/01/172108: ANISO added. RFLXG = MORPH.@10/01/172108: MICRO added. RFLXG = MORPH.@10/01/172108: MACRO added. RFLXG = MORPH.@10/01/172108: SPHERE added. RFLXG = MORPH.@10/01/172108: ELLIPTO added. RFLXG = MORPH.@10/01/172108: SIDEROCYTE added. RFLXG = MORPH.@10/01/172108: ADARSH BODIES added. RFLXG = MORPH.@10/01/172108: PELGER-HUET added. RFLXG = MORPH.@10/01/172108: ANA LILIA BODIES added. RFLXG = MORPH.@10/01/172108: SICKLE added. RFLXG = MORPH.@10/01/172108: TARGET added. RFLXG = MORPH.@10/01/172108: TEAR added. RFLXG = MORPH.@10/01/172108: OVAL added. RFLXG = MORPH.@10/01/172108: STOMATO added. RFLXG = MORPH.@10/01/172108: HELMET CELLS added. RFLXG = MORPH.@10/01/172108: HJ BODIES added. RFLXG = MORPH.@10/01/172108: TOXIC GRAN added. RFLXG = MORPH.@10/01/172108: TOXIC VAC added. RFLXG = MORPH.@10/01/172108: DOHLE BODIES added. RFLXG = MORPH.@10/01/172108: NIMISHA CELLS added. RFLXG = MORPH.@10/01/172108: CRENATED RBC added. RFLXG = MORPH.@10/01/172108: ACANTHO added. RFLXG = MORPH.@10/01/172108: ROLY RODS added. RFLXG = MORPH.@10/01/172108: ROULEAUX added. RFLXG = MORPH.@10/01/172108: SCHISTO added. RFLXG = MORPH.@10/01/172108: PARASITES added. RFLXG = MORPH. Performed By: #### C REAT-EGFR, SEC CALL ####[facility] - [id number] [place], [place] [address] Monocytes 0.8 10 3/uL Normal 0.2-0.8 [facility] Comment on above: Order Comment: @11/13: SMUDGE CELLS added. RFLXG = MORPH.@10/01/172108: GIANT PLATELETS added. RFLXG = MORPH.@10/01/172108: POLYCHROM added. RFLXG = MORPH.@10/01/172108: HYPERCHROM added. RFLXG = MORPH.@10/01/172108: HYPOCHROM added. RFLXG = MORPH.@10/01/172108: POIK added. RFLXG = MORPH.@10/01/172108: BASO STIP added. RFLXG = MORPH.@10/01/172108: ANISO added. RFLXG = MORPH.@10/01/172108: MICRO added. RFLXG = MORPH.@10/01/172108: MACRO added. RFLXG = MORPH.@10/01/172108: SPHERE added. RFLXG = MORPH.@10/01/172108: ELLIPTO added. RFLXG = MORPH.@10/01/172108: SIDEROCYTE added. RFLXG = MORPH.@10/01/172108: ADARSH BODIES added. RFLXG = MORPH.@10/01/172108: PELGER-HUET added. RFLXG = MORPH.@10/01/172108: ANA LILIA BODIES added. RFLXG = MORPH.@10/01/172108: SICKLE added. RFLXG = MORPH.@10/01/172108: TARGET added. RFLXG = MORPH.@10/01/172108: TEAR added. RFLXG = MORPH.@10/01/172108: OVAL added. RFLXG = MORPH.@10/01/172108: STOMATO added. RFLXG = MORPH.@10/01/172108: HELMET CELLS added. RFLXG = MORPH.@10/01/172108: HJ BODIES added. RFLXG = MORPH.@10/01/172108: TOXIC GRAN added. RFLXG = MORPH.@10/01/172108: TOXIC VAC added. RFLXG = MORPH.@10/01/172108: DOHLE BODIES added. RFLXG = MORPH.@10/01/172108: NIMISHA CELLS added. RFLXG = MORPH.@10/01/172108: CRENATED RBC added. RFLXG = MORPH.@10/01/172108: ACANTHO added. RFLXG = MORPH.@10/01/172108: ROLY RODS added. RFLXG = MORPH.@10/01/172108: ROULEAUX added. RFLXG = MORPH.@10/01/172108: SCHISTO added. RFLXG = MORPH.@10/01/172108: PARASITES added. RFLXG = MORPH. Performed By: #### C REMARY-EGFR, SEC CALL ####[facility] - [id number] [place], [place] [address] Monocytes/100 leukocytes 7.7 % Normal 1.7-9.3 [facility] Comment on above: Order Comment: @11/13: SMUDGE CELLS added. RFLXG = MORPH.@10/01/172108: GIANT PLATELETS added. RFLXG = MORPH.@10/01/172108: POLYCHROM added. RFLXG = MORPH.@10/01/172108: HYPERCHROM added. RFLXG = MORPH.@10/01/172108: HYPOCHROM added. RFLXG = MORPH.@10/01/172108: POIK added. RFLXG = MORPH.@10/01/172108: BASO STIP added. RFLXG = MORPH.@10/01/172108: ANISO added. RFLXG = MORPH.@10/01/172108: MICRO added. RFLXG = MORPH.@10/01/172108: MACRO added. RFLXG = MORPH.@10/01/172108: SPHERE added. RFLXG = MORPH.@10/01/172108: ELLIPTO added. RFLXG = MORPH.@10/01/172108: SIDEROCYTE added. RFLXG = MORPH.@10/01/172108: ADARSH BODIES added. RFLXG = MORPH.@10/01/172108: PELGER-HUET added. RFLXG = MORPH.@10/01/172108: ANA LILIA BODIES added. RFLXG = MORPH.@10/01/172108: SICKLE added. RFLXG = MORPH.@10/01/172108: TARGET added. RFLXG = MORPH.@10/01/172108: TEAR added. RFLXG = MORPH.@10/01/172108: OVAL added. RFLXG = MORPH.@10/01/172108: STOMATO added. RFLXG = MORPH.@10/01/172108: HELMET CELLS added. RFLXG = MORPH.@10/01/172108: HJ BODIES added. RFLXG = MORPH.@10/01/172108: TOXIC GRAN added. RFLXG = MORPH.@10/01/172108: TOXIC VAC added. RFLXG = MORPH.@10/01/172108: DOHLE BODIES added. RFLXG = MORPH.@10/01/172108: NIMISHA CELLS added. RFLXG = MORPH.@10/01/172108: CRENATED RBC added. RFLXG = MORPH.@10/01/172108: ACANTHO added. RFLXG = MORPH.@10/01/172108: ROLY RODS added. RFLXG = MORPH.@10/01/172108: ROULEAUX added. RFLXG = MORPH.@10/01/172108: SCHISTO added. RFLXG = MORPH.@10/01/172108: PARASITES added. RFLXG = MORPH. Performed By: #### C REAT-EGFR, SEC CALL ####[facility] - [id number] [place], [place] [address] Neutrophils 7.0 10 3/uL High 1.5-6.7 [facility] Comment on above: Order Comment: @11/13: SMUDGE CELLS added. RFLXG = MORPH.@10/01/172108: GIANT PLATELETS added. RFLXG = MORPH.@10/01/172108: POLYCHROM added. RFLXG = MORPH.@10/01/172108: HYPERCHROM added. RFLXG = MORPH.@10/01/172108: HYPOCHROM added. RFLXG = MORPH.@10/01/172108: POIK added. RFLXG = MORPH.@10/01/172108: BASO STIP added. RFLXG = MORPH.@10/01/172108: ANISO added. RFLXG = MORPH.@10/01/172108: MICRO added. RFLXG = MORPH.@10/01/172108: MACRO added. RFLXG = MORPH.@10/01/172108: SPHERE added. RFLXG = MORPH.@10/01/172108: ELLIPTO added. RFLXG = MORPH.@10/01/172108: SIDEROCYTE added. RFLXG = MORPH.@10/01/172108: ADARSH BODIES added. RFLXG = MORPH.@10/01/172108: PELGER-HUET added. RFLXG = MORPH.@10/01/172108: ANA LILIA BODIES added. RFLXG = MORPH.@10/01/172108: SICKLE added. RFLXG = MORPH.@10/01/172108: TARGET added. RFLXG = MORPH.@10/01/172108: TEAR added. RFLXG = MORPH.@10/01/172108: OVAL added. RFLXG = MORPH.@10/01/172108: STOMATO added. RFLXG = MORPH.@10/01/172108: HELMET CELLS added. RFLXG = MORPH.@10/01/172108: HJ BODIES added. RFLXG = MORPH.@10/01/172108: TOXIC GRAN added. RFLXG = MORPH.@10/01/172108: TOXIC VAC added. RFLXG = MORPH.@10/01/172108: DOHLE BODIES added. RFLXG = MORPH.@10/01/172108: NIMISHA CELLS added. RFLXG = MORPH.@10/01/172108: CRENATED RBC added. RFLXG = MORPH.@10/01/172108: ACANTHO added. RFLXG = MORPH.@10/01/172108: ROLY RODS added. RFLXG = MORPH.@10/01/172108: ROULEAUX added. RFLXG = MORPH.@10/01/172108: SCHISTO added. RFLXG = MORPH.@10/01/172108: PARASITES added. RFLXG = MORPH. Performed By: #### C REAT-EGFR, SEC CALL ####[facility] - [id number] [place] [address] PLATELET ESTIMATE COMMENT CONFIRMED Abnormal [facility] Comment on above: Order Comment: @11/13: SMUDGE CELLS added. RFLXG = MORPH.@10/01/172108: GIANT PLATELETS added. RFLXG = MORPH.@10/01/172108: POLYCHROM added. RFLXG = MORPH.@10/01/172108: HYPERCHROM added. RFLXG = MORPH.@10/01/172108: HYPOCHROM added. RFLXG = MORPH.@10/01/172108: POIK added. RFLXG = MORPH.@10/01/172108: BASO STIP added. RFLXG = MORPH.@10/01/172108: ANISO added. RFLXG = MORPH.@10/01/172108: MICRO added. RFLXG = MORPH.@10/01/172108: MACRO added. RFLXG = MORPH.@10/01/172108: SPHERE added. RFLXG = MORPH.@10/01/172108: ELLIPTO added. RFLXG = MORPH.@10/01/172108: SIDEROCYTE added. RFLXG = MORPH.@10/01/172108: ADARSH BODIES added. RFLXG = MORPH.@10/01/172108: PELGER-HUET added. RFLXG = MORPH.@10/01/172108: ANA LILIA BODIES added. RFLXG = MORPH.@10/01/172108: SICKLE added. RFLXG = MORPH.@10/01/172108: TARGET added. RFLXG = MORPH.@10/01/172108: TEAR added. RFLXG = MORPH.@10/01/172108: OVAL added. RFLXG = MORPH.@10/01/172108: STOMATO added. RFLXG = MORPH.@10/01/172108: HELMET CELLS added. RFLXG = MORPH.@10/01/172108: HJ BODIES added. RFLXG = MORPH.@10/01/172108: TOXIC GRAN added. RFLXG = MORPH.@10/01/172108: TOXIC VAC added. RFLXG = MORPH.@10/01/172108: DOHLE BODIES added. RFLXG = MORPH.@10/01/172108: NIMISHA CELLS added. RFLXG = MORPH.@10/01/172108: CRENATED RBC added. RFLXG = MORPH.@10/01/172108: ACANTHO added. RFLXG = MORPH.@10/01/172108: ROLY RODS added. RFLXG = MORPH.@10/01/172108: ROULEAUX added. RFLXG = MORPH.@10/01/172108: SCHISTO added. RFLXG = MORPH.@10/01/172108: PARASITES added. RFLXG = MORPH. Result Comment: Plat elet count performed by review: at 21:04:13 10/01/2017by .Platelet count performed by review: at 21:07:37 10/01/2017by . Performed By: #### C REAT-EGFR, SEC CALL ####[facility] - [id number] [place], [place] [address] Platelet mean volume (PMV) 8.6 fL Normal 6.0-9.5 [facility] Comment on above: Order Comment: @11/13: SMUDGE CELLS added. RFLXG = MORPH.@10/01/172108: GIANT PLATELETS added. RFLXG = MORPH.@10/01/172108: POLYCHROM added. RFLXG = MORPH.@10/01/172108: HYPERCHROM added. RFLXG = MORPH.@10/01/172108: HYPOCHROM added. RFLXG = MORPH.@10/01/172108: POIK added. RFLXG = MORPH.@10/01/172108: BASO STIP added. RFLXG = MORPH.@10/01/172108: ANISO added. RFLXG = MORPH.@10/01/172108: MICRO added. RFLXG = MORPH.@10/01/172108: MACRO added. RFLXG = MORPH.@10/01/172108: SPHERE added. RFLXG = MORPH.@10/01/172108: ELLIPTO added. RFLXG = MORPH.@10/01/172108: SIDEROCYTE added. RFLXG = MORPH.@10/01/172108: ADARSH BODIES added. RFLXG = MORPH.@10/01/172108: PELGER-HUET added. RFLXG = MORPH.@10/01/172108: ANA LILIA BODIES added. RFLXG = MORPH.@10/01/172108: SICKLE added. RFLXG = MORPH.@10/01/172108: TARGET added. RFLXG = MORPH.@10/01/172108: TEAR added. RFLXG = MORPH.@10/01/172108: OVAL added. RFLXG = MORPH.@10/01/172108: STOMATO added. RFLXG = MORPH.@10/01/172108: HELMET CELLS added. RFLXG = MORPH.@10/01/172108: HJ BODIES added. RFLXG = MORPH.@10/01/172108: TOXIC GRAN added. RFLXG = MORPH.@10/01/172108: TOXIC VAC added. RFLXG = MORPH.@10/01/172108: DOHLE BODIES added. RFLXG = MORPH.@10/01/172108: NIMISHA CELLS added. RFLXG = MORPH.@10/01/172108: CRENATED RBC added. RFLXG = MORPH.@10/01/172108: ACANTHO added. RFLXG = MORPH.@10/01/172108: ROLY RODS added. RFLXG = MORPH.@10/01/172108: ROULEAUX added. RFLXG = MORPH.@10/01/172108: SCHISTO added. RFLXG = MORPH.@10/01/172108: PARASITES added. RFLXG = MORPH. Performed By: #### C REAT-EGFR, SEC CALL ####[facility] - [id number] [place], [place] [address] Platelets 245 10 3/uL Normal 150-450 [facility] Comment on above: Order Comment: @11/13: SMUDGE CELLS added. RFLXG = MORPH.@10/01/172108: GIANT PLATELETS added. RFLXG = MORPH.@10/01/172108: POLYCHROM added. RFLXG = MORPH.@10/01/172108: HYPERCHROM added. RFLXG = MORPH.@10/01/172108: HYPOCHROM added. RFLXG = MORPH.@10/01/172108: POIK added. RFLXG = MORPH.@10/01/172108: BASO STIP added. RFLXG = MORPH.@10/01/172108: ANISO added. RFLXG = MORPH.@10/01/172108: MICRO added. RFLXG = MORPH.@10/01/172108: MACRO added. RFLXG = MORPH.@10/01/172108: SPHERE added. RFLXG = MORPH.@10/01/172108: ELLIPTO added. RFLXG = MORPH.@10/01/172108: SIDEROCYTE added. RFLXG = MORPH.@10/01/172108: ADARSH BODIES added. RFLXG = MORPH.@10/01/172108: PELGER-HUET added. RFLXG = MORPH.@10/01/172108: ANA LILIA BODIES added. RFLXG = MORPH.@10/01/172108: SICKLE added. RFLXG = MORPH.@10/01/172108: TARGET added. RFLXG = MORPH.@10/01/172108: TEAR added. RFLXG = MORPH.@10/01/172108: OVAL added. RFLXG = MORPH.@10/01/172108: STOMATO added. RFLXG = MORPH.@10/01/172108: HELMET CELLS added. RFLXG = MORPH.@10/01/172108: HJ BODIES added. RFLXG = MORPH.@10/01/172108: TOXIC GRAN added. RFLXG = MORPH.@10/01/172108: TOXIC VAC added. RFLXG = MORPH.@10/01/172108: DOHLE BODIES added. RFLXG = MORPH.@10/01/172108: NIMISHA CELLS added. RFLXG = MORPH.@10/01/172108: CRENATED RBC added. RFLXG = MORPH.@10/01/172108: ACANTHO added. RFLXG = MORPH.@10/01/172108: ROLY RODS added. RFLXG = MORPH.@10/01/172108: ROULEAUX added. RFLXG = MORPH.@10/01/172108: SCHISTO added. RFLXG = MORPH.@10/01/172108: PARASITES added. RFLXG = MORPH. Performed By: #### C REAT-EGFR, SEC CALL ####[facility] - [id number] [place], [place] [address] Segmented Neutrophils/100 leukocytes 71.0 % High 36.0-66.0 [facility] Comment on above: Order Comment: @11/13: SMUDGE CELLS added. RFLXG = MORPH.@10/01/172108: GIANT PLATELETS added. RFLXG = MORPH.@10/01/172108: POLYCHROM added. RFLXG = MORPH.@10/01/172108: HYPERCHROM added. RFLXG = MORPH.@10/01/172108: HYPOCHROM added. RFLXG = MORPH.@10/01/172108: POIK added. RFLXG = MORPH.@10/01/172108: BASO STIP added. RFLXG = MORPH.@10/01/172108: ANISO added. RFLXG = MORPH.@10/01/172108: MICRO added. RFLXG = MORPH.@10/01/172108: MACRO added. RFLXG = MORPH.@10/01/172108: SPHERE added. RFLXG = MORPH.@10/01/172108: ELLIPTO added. RFLXG = MORPH.@10/01/172108: SIDEROCYTE added. RFLXG = MORPH.@10/01/172108: ADARSH BODIES added. RFLXG = MORPH.@10/01/172108: PELGER-HUET added. RFLXG = MORPH.@10/01/172108: ANA LILIA BODIES added. RFLXG = MORPH.@10/01/172108: SICKLE added. RFLXG = MORPH.@10/01/172108: TARGET added. RFLXG = MORPH.@10/01/172108: TEAR added. RFLXG = MORPH.@10/01/172108: OVAL added. RFLXG = MORPH.@10/01/172108: STOMATO added. RFLXG = MORPH.@10/01/172108: HELMET CELLS added. RFLXG = MORPH.@10/01/172108: HJ BODIES added. RFLXG = MORPH.@10/01/172108: TOXIC GRAN added. RFLXG = MORPH.@10/01/172108: TOXIC VAC added. RFLXG = MORPH.@10/01/172108: DOHLE BODIES added. RFLXG = MORPH.@10/01/172108: NIMISHA CELLS added. RFLXG = MORPH.@10/01/172108: CRENATED RBC added. RFLXG = MORPH.@10/01/172108: ACANTHO added. RFLXG = MORPH.@10/01/172108: ROLY RODS added. RFLXG = MORPH.@10/01/172108: ROULEAUX added. RFLXG = MORPH.@10/01/172108: SCHISTO added. RFLXG = MORPH.@10/01/172108: PARASITES added. RFLXG = MORPH. Performed By: #### C REAT-EGFR, SEC CALL ####[facility] - [id number] [place] 6[address] WBC (Leukocytes) 9.9 10 3/uL Normal 4.0-10.5 [facility] Comment on above: Order Comment: @11/13: SMUDGE CELLS added. RFLXG = MORPH.@10/01/172108: GIANT PLATELETS added. RFLXG = MORPH.@10/01/172108: POLYCHROM added. RFLXG = MORPH.@10/01/172108: HYPERCHROM added. RFLXG = MORPH.@10/01/172108: HYPOCHROM added. RFLXG = MORPH.@10/01/172108: POIK added. RFLXG = MORPH.@10/01/172108: BASO STIP added. RFLXG = MORPH.@10/01/172108: ANISO added. RFLXG = MORPH.@10/01/172108: MICRO added. RFLXG = MORPH.@10/01/172108: MACRO added. RFLXG = MORPH.@10/01/172108: SPHERE added. RFLXG = MORPH.@10/01/172108: ELLIPTO added. RFLXG = MORPH.@10/01/172108: SIDEROCYTE added. RFLXG = MORPH.@10/01/172108: ADARSH BODIES added. RFLXG = MORPH.@10/01/172108: PELGER-HUET added. RFLXG = MORPH.@10/01/172108: ANA LILIA BODIES added. RFLXG = MORPH.@10/01/172108: SICKLE added. RFLXG = MORPH.@10/01/172108: TARGET added. RFLXG = MORPH.@10/01/172108: TEAR added. RFLXG = MORPH.@10/01/172108: OVAL added. RFLXG = MORPH.@10/01/172108: STOMATO added. RFLXG = MORPH.@10/01/172108: HELMET CELLS added. RFLXG = MORPH.@10/01/172108: HJ BODIES added. RFLXG = MORPH.@10/01/172108: TOXIC GRAN added. RFLXG = MORPH.@10/01/172108: TOXIC VAC added. RFLXG = MORPH.@10/01/172108: DOHLE BODIES added. RFLXG = MORPH.@10/01/172108: NIMISHA CELLS added. RFLXG = MORPH.@10/01/172108: CRENATED RBC added. RFLXG = MORPH.@10/01/172108: ACANTHO added. RFLXG = MORPH.@10/01/172108: ROLY RODS added. RFLXG = MORPH.@10/01/172108: ROULEAUX added. RFLXG = MORPH.@10/01/172108: SCHISTO added. RFLXG = MORPH.@10/01/172108: PARASITES added. RFLXG = MORPH. Performed By: #### C REAT-EGFR, SEC CALL ####[facility] - [id number] [place], [place] [address] COMPREHENSIVE METABOLIC PANE Negro 10-01-2017 Albumin 4.2 g/dL Normal 3.9-5.0 [facility] Comment on above: Performed By: #### C REAT-EGFR, SEC CALL ####[facility] - [id number] [place], [place] [address] Albumin/Globulin Ratio 1.4 {ratio} Normal 1.1-1.8 [facility] Comment on above: Performed By: #### C REAT-EGFR, SEC CALL ####[facility] - [id number] [place], [place] [address] Alkaline phosphatase (ALP) 53 U/L Normal 43-122 [facility] Comment on above: Performed By: #### C REAT-EGFR, SEC CALL ####[facility] - [id number] [place], [place] [address] ALT/SGPT 18 U/L Normal 7-56 [facility] Comment on above: Performed By: #### C REAT-EGFR, SEC CALL ####[facility] - [id number] [place], [place] [address] Anion gap 18 mmol/L Normal 9-18 [facility] Comment on above: Performed By: #### C REAT-EGFR, SEC CALL ####[facility] - [id number] [place], [place] [address] AST/SGOT 21 U/L Normal 8-39 [facility] Comment on above: Performed By: #### C REAT-EGFR, SEC CALL ####[facility] - [id number] [place], [place] [address] Bilirubin (total) 0.4 mg/dL Normal 0.2-1.3 [facility] Comment on above: Performed By: #### C REAT-EGFR, SEC CALL ####[facility] - [id number] [place], [place] [address] BUN (urea nitrogen) 77 mg/dL High 7-21 [facility] Comment on above: Performed By: #### C REAT-EGFR, SEC CALL ####[facility] - [id number] [place], [place] [address] BUN/Creatinine Ratio 32.4 Ratio Normal 5.0-42.0 [facility] Comment on above: Performed By: #### C REAT-EGFR, SEC CALL ####[facility] - [id number] [place], [place] [address] Calcium 9.3 mg/dL Normal 8.4-10.2 [facility] Comment on above: Performed By: #### C REAT-EGFR, SEC CALL ####[facility] - [id number] [place], [place] [address] Chloride 117 mmol/L High 98-107 [facility] Comment on above: Performed By: #### C REAT-EGFR, SEC CALL ####[facility] - [id number] [place], [place] [address] CO2 13 mmol/L Critically low 22-31 [facility] Comment on above: Performed By: #### C REAT-EGFR, SEC CALL ####[facility] - [id number] [place], [place] [address] Creatinine 21.31 mg/dL Normal [facility] Comment on above: Result Comment: COCK CROFT-GAULT FORMULA 1973 Performed By: #### C REAT-EGFR, SEC CALL ####[facility] - [id number] [place], [place] [address] Creatinine 2.38 mg/dL High 0.80-1.30 [facility] Comment on above: Performed By: #### C REAT-EGFR, SEC CALL ####[facility] - [id number] [place], [place] [address] eGFR (non-black) 21.000 mL/min/{1.73_m2} Normal [facility] Comment on above: Performed By: #### C REAT-EGFR, SEC CALL ####[facility] - [id number] [place], [place] [address] Globulin 2.9 g/dL Normal [facility] Comment on above: Performed By: #### C REAT-EGFR, SEC CALL ####[facility] - [id number] [place], [place] [address] Glucose mass conc 104 mg/dL High 70-99 [facility] Comment on above: Result Comment: The glucose range is based on recommendations from theAmerican Diabetes Association for fasting blood glucoserange. Performed By: #### C REAT-EGFR, SEC CALL ####[facility] - [id number] [place], [place] [address] Potassium molar conc 5.9 mmol/L High 3.6-5.0 [facility] Comment on above: Performed By: #### C REAT-EGFR, SEC CALL ####[facility] - [id number] [place], [place] [address] Protein 7.1 g/dL Normal 6.3-8.2 [facility] Comment on above: Performed By: #### C REAT-EGFR, SEC CALL ####[facility] - [id number] [place], [place] [address] Sodium 142 mmol/L Normal 137-145 [facility] Comment on above: Performed By: #### C REAT-EGFR, SEC CALL ####[facility] - [id number] [place], [place] [address] Age 57 Years Normal [facility] Comment on above: Performed By: #### C REAT-EGFR, SEC CALL ####[facility] - [id number] [place], [place] [address] CREATINE KINASEon 10-01-2017 Creatine kinase (CK) 51 U/L Low 55-170 [facility] Comment on above: Performed By: #### C REAT-EGFR, SEC CALL ####[facility] - [id number] [place], [place] [address] CREATINE KINASE MBon 018 CKMB 5.4 ng/mL High 0.0-3.7 [facility] Comment on above: Performed By: #### C REAT-EGFR, SEC CALL ####[facility] - [id number] [place], [place] [address] CT HEAD W/O CONTRASTon 10-01 CT HEAD W/O CONTRAST [facility] [address] [place] [address] Diagnostic Imaging Report : [id number] Signed Name: BLAS LUJAN MRUN: [id number] : 1960 Loc: ED Age / Sex: 57 / F ADM Status: REG ER ADM Date: 10/01/17 Room/Bed: Ordering Physician: Paxton Rodriguez PA-C Procedure: CT HEAD W/O CONTRAST Order Number(s): [id number] Ordered Date: 10/01/17 Ordered Time: 2101 EXAMINATION: CT OF THE HEAD WITHOUT CONTRAST 10/01/2017 9:08 pm TECHNIQUE: CT of the head was performed without the administration of intravenous contrast. Dose modulation, iterative reconstruction, and/or weight based adjustment of the mA/kV was utilized to reduce the radiation dose to as low as reasonably achievable. COMPARISON: HISTORY: headache syncope FINDINGS: The brain volume is within normal limits for age. There is no acute infarct, hemorrhage, or hydrocephalus identified. Opacification of right mastoid air cells is present which is nonspecific, new compared to previously. Postop changes right temporal calvarium present. Motion artifact limits the exam. Cerebellar tonsils mildly low could indicate Chiari 1 malformation IMPRESSION: No acute intracranial abnormality is identified. Opacification of right mastoid air cells. Dictated By: Александр Marcos DO Dictated Date/Time: 10/01/172142 Signed By: Александр Marcos Signed Date/Time: 10/01/172153 Transcribed Date/Time: 10/01/172149 Normal [facility] HYPOCHROMASIAon 10-01-2017 HYPOCHROMASIA 2+ Abnormal [facility] Comment on above: Order Comment: @11/13: SMUDGE CELLS added. RFLXG = MORPH.@10/01/172108: GIANT PLATELETS added. RFLXG = MORPH.@10/01/172108: POLYCHROM added. RFLXG = MORPH.@10/01/172108: HYPERCHROM added. RFLXG = MORPH.@10/01/172108: HYPOCHROM added. RFLXG = MORPH.@10/01/172108: POIK added. RFLXG = MORPH.@10/01/172108: BASO STIP added. RFLXG = MORPH.@10/01/172108: ANISO added. RFLXG = MORPH.@10/01/172108: MICRO added. RFLXG = MORPH.@10/01/172108: MACRO added. RFLXG = MORPH.@10/01/172108: SPHERE added. RFLXG = MORPH.@10/01/172108: ELLIPTO added. RFLXG = MORPH.@10/01/172108: SIDEROCYTE added. RFLXG = MORPH.@10/01/172108: ADARSH BODIES added. RFLXG = MORPH.@10/01/172108: PELGER-HUET added. RFLXG = MORPH.@10/01/172108: ANA LILIA BODIES added. RFLXG = MORPH.@10/01/172108: SICKLE added. RFLXG = MORPH.@10/01/172108: TARGET added. RFLXG = MORPH.@10/01/172108: TEAR added. RFLXG = MORPH.@10/01/172108: OVAL added. RFLXG = MORPH.@10/01/172108: STOMATO added. RFLXG = MORPH.@10/01/172108: HELMET CELLS added. RFLXG = MORPH.@10/01/172108: HJ BODIES added. RFLXG = MORPH.@10/01/172108: TOXIC GRAN added. RFLXG = MORPH.@10/01/172108: TOXIC VAC added. RFLXG = MORPH.@10/01/172108: DOHLE BODIES added. RFLXG = MORPH.@10/01/172108: NIMISHA CELLS added. RFLXG = MORPH.@10/01/172108: CRENATED RBC added. RFLXG = MORPH.@10/01/172108: ACANTHO added. RFLXG = MORPH.@10/01/172108: ROLY RODS added. RFLXG = MORPH.@10/01/172108: ROULEAUX added. RFLXG = MORPH.@10/01/172108: SCHISTO added. RFLXG = MORPH.@10/01/172108: PARASITES added. RFLXG = MORPH. Performed By: #### C REAT-EGFR, SEC CALL ####Main Lab - [id number] [place] [address] MICROCYTOSISon 10-01-2017 MICROCYTOSIS 1+ Abnormal [facility] Comment on above: Order Comment: @11/13: SMUDGE CELLS added. RFLXG = MORPH.@10/01/172108: GIANT PLATELETS added. RFLXG = MORPH.@10/01/172108: POLYCHROM added. RFLXG = MORPH.@10/01/172108: HYPERCHROM added. RFLXG = MORPH.@10/01/172108: HYPOCHROM added. RFLXG = MORPH.@10/01/172108: POIK added. RFLXG = MORPH.@10/01/172108: BASO STIP added. RFLXG = MORPH.@10/01/172108: ANISO added. RFLXG = MORPH.@10/01/172108: MICRO added. RFLXG = MORPH.@10/01/172108: MACRO added. RFLXG = MORPH.@10/01/172108: SPHERE added. RFLXG = MORPH.@10/01/172108: ELLIPTO added. RFLXG = MORPH.@10/01/172108: SIDEROCYTE added. RFLXG = MORPH.@10/01/172108: ADARSH BODIES added. RFLXG = MORPH.@10/01/172108: PELGER-HUET added. RFLXG = MORPH.@10/01/172108: ANA LILIA BODIES added. RFLXG = MORPH.@10/01/172108: SICKLE added. RFLXG = MORPH.@10/01/172108: TARGET added. RFLXG = MORPH.@10/01/172108: TEAR added. RFLXG = MORPH.@10/01/172108: OVAL added. RFLXG = MORPH.@10/01/172108: STOMATO added. RFLXG = MORPH.@10/01/172108: HELMET CELLS added. RFLXG = MORPH.@10/01/172108: HJ BODIES added. RFLXG = MORPH.@10/01/172108: TOXIC GRAN added. RFLXG = MORPH.@10/01/172108: TOXIC VAC added. RFLXG = MORPH.@10/01/172108: DOHLE BODIES added. RFLXG = MORPH.@10/01/172108: NIMISHA CELLS added. RFLXG = MORPH.@10/01/172108: CRENATED RBC added. RFLXG = MORPH.@10/01/172108: ACANTHO added. RFLXG = MORPH.@10/01/172108: ROLY RODS added. RFLXG = MORPH.@10/01/172108: ROULEAUX added. RFLXG = MORPH.@10/01/172108: SCHISTO added. RFLXG = MORPH.@10/01/172108: PARASITES added. RFLXG = MORPH. Performed By: #### C REAT-EGFR, SEC CALL ####Main Lab - [id number] [place], [place] [address] OCCULT BLOOD, STOOLon 2017 OCCULT BLOOD, STOOL Negative Normal NEGATIVE [facility] Comment on above: Result Comment: @Int ernal Pos/Neg controls reacted as detailed in procedure@literature. Performed By: #### C REAT-EGFR, SEC CALL ####Main Lab - [id number] [place], [place] [address] POIKILOCYTOSISon 10-01-2017 POIKILOCYTOSIS 1+ Abnormal [facility] Comment on above: Order Comment: @11/13: SMUDGE CELLS added. RFLXG = MORPH.@10/01/172108: GIANT PLATELETS added. RFLXG = MORPH.@10/01/172108: POLYCHROM added. RFLXG = MORPH.@10/01/172108: HYPERCHROM added. RFLXG = MORPH.@10/01/172108: HYPOCHROM added. RFLXG = MORPH.@10/01/172108: POIK added. RFLXG = MORPH.@10/01/172108: BASO STIP added. RFLXG = MORPH.@10/01/172108: ANISO added. RFLXG = MORPH.@10/01/172108: MICRO added. RFLXG = MORPH.@10/01/172108: MACRO added. RFLXG = MORPH.@10/01/172108: SPHERE added. RFLXG = MORPH.@10/01/172108: ELLIPTO added. RFLXG = MORPH.@10/01/172108: SIDEROCYTE added. RFLXG = MORPH.@10/01/172108: ADARSH BODIES added. RFLXG = MORPH.@10/01/172108: PELGER-HUET added. RFLXG = MORPH.@10/01/172108: ANA LILIA BODIES added. RFLXG = MORPH.@10/01/172108: SICKLE added. RFLXG = MORPH.@10/01/172108: TARGET added. RFLXG = MORPH.@10/01/172108: TEAR added. RFLXG = MORPH.@10/01/172108: OVAL added. RFLXG = MORPH.@10/01/172108: STOMATO added. RFLXG = MORPH.@10/01/172108: HELMET CELLS added. RFLXG = MORPH.@10/01/172108: HJ BODIES added. RFLXG = MORPH.@10/01/172108: TOXIC GRAN added. RFLXG = MORPH.@10/01/172108: TOXIC VAC added. RFLXG = MORPH.@10/01/172108: DOHLE BODIES added. RFLXG = MORPH.@10/01/172108: NIMISHA CELLS added. RFLXG = MORPH.@10/01/172108: CRENATED RBC added. RFLXG = MORPH.@10/01/172108: ACANTHO added. RFLXG = MORPH.@10/01/172108: ROLY RODS added. RFLXG = MORPH.@10/01/172108: ROULEAUX added. RFLXG = MORPH.@10/01/172108: SCHISTO added. RFLXG = MORPH.@10/01/172108: PARASITES added. RFLXG = MORPH. Performed By: #### C REAT-EGFR, SEC CALL ####Main Lab - [id number] [place], [place] [address] TROPONIN Ion 10-01-2017 Troponin I.cardiac mass conc ng/mL Normal 0.0-0.03 [facility] Comment on above: Result Comment: Refe rence Interval < or = 0.03 ng/mLClinical Correlation Needed 0.03 - 0.12 ng/mLAMI Cutoff, Presumptive = or > 0.12 ng/mL Performed By: #### C REAT-EGFR, SEC CALL ####Main Lab - [id number] [place], [place] [address] XR PORTABLE CHEST (1VIEW)on 10-01-2017 XR PORTABLE CHEST (1VIEW) [facility] [address] [place] [id number] Diagnostic Imaging Report : [id number] Signed Name: BLAS LUJAN MRUN: [id number] : 1960 Loc: ED Age / Sex: 57 / F ADM Status: REG ER ADM Date: 10/01/17 Room/Bed: Ordering Physician: Paxton Rodriguez PA-C Procedure: XR PORTABLE CHEST (1VIEW) Order Number(s): [id number] Ordered Date: 10/01/17 Ordered Time: 2012 EXAMINATION: SINGLE VIEW OF THE CHEST 10/01/2017 9:00 pm COMPARISON: HISTORY: lightheaded FINDINGS: Stable cardiomediastinal silhouette. No acute pleural or pulmonary abnormality is identified. Overlying monitoring wires/ leads are present. IMPRESSION: No acute cardiopulmonary process by portable evaluation. Dictated By: Александр Marcos DO Dictated Date/Time: 10/01/172118 Signed By: Александр Marcos Signed Date/Time: 10/01/172124 Transcribed Date/Time: 10/01/172120 Normal [facility] XR CERVICAL SPINEon 09-27-19 XR CERVICAL SPINE [facility] [address] [place], [place] [id number] Diagnostic Imaging Report : [id number] Signed Name: BLAS LUJAN MRUN: [id number] : 1960 Loc: RAD Age / Sex: 57 / F ADM Status: REG CLI ADM Date: 09/27/17 Room/Bed: Ordering Physician: Carmen Ford MD Procedure: XR CERVICAL SPINE Order Number(s): [id number] Ordered Date: 09/27/17 Ordered Time: 1411 EXAMINATION: 5 VIEWS OF THE CERVICAL SPINE 09/27/2017 2:29 pm COMPARISON: 02/04/2017 HISTORY: NECK PAIN FINDINGS: Stable 3.5- 4 mm anterior subluxation C2 on C3, stable loss vertebral body height at C3, radiographically stable reversal cervical lordosis and multilevel advanced disc space narrowing throughout cervical spine. Prevertebral soft tissue prominence noted of the C2 and C3 level which may partially reflect reversal cervical lordosis however, retropharyngeal soft tissue mass, edema/inflammatory change cannot be excluded. No air-fluid leveling. Contrast-enhanced soft tissue neck CT suggested if clinical concern of prevertebral soft tissue pathology. Otherwise, facet joints are radiographically intact. Bony foraminal stenosis C3-C4 and to a lesser degree at C4-C5 noted. IMPRESSION: Prevertebral soft tissue prominence new/ worse compared to 02/04/2017. Contrast-enhanced soft tissue neck CT recommended if clinical concern of inflammatory or neoplastic prevertebral soft tissue abnormality. Otherwise, no significant radiographic change with 3.5- 4 mm anterior subluxation C 2 on C3, advanced multilevel disc space narrowing, bony foraminal stenosis at loss vertebral body height at C3. Cervical MRI suggested if clinical concern of radiculopathy/ nerve compression. Dictated By: Awais Asencio DO Dictated Date/Time: 09/27/17 1459 Signed By: Awais Asencio DO Signed Date/Time: 09/27/17 1507 Transcribed Date/Time: 09/27/17 1503 Normal [facility] XR LUMBAR SPINEon 09-27-2017 XR LUMBAR SPINE [facility] [address] [place] [address] Diagnostic Imaging Report : [id number] [id number] MRUN: [id number] : 1960 Loc: RAD Age / Sex: 57 / F ADM Status: REG CLI ADM Date: 09/27/17 Room/Bed: Ordering Physician: Carmen Ford MD Procedure: XR LUMBAR SPINE Order Number(s): [id number] Ordered Date: 09/27/17 Ordered Time: 141 EXAMINATION: 5 VIEWS OF THE LUMBAR SPINE 09/27/2017 2:29 pm COMPARISON: 02/04/2017 HISTORY: LOW BACK PAIN FINDINGS: Vertebral body compression fracture T11 of uncertain acuity. Lumbar MRI to include lower thoracic region suggested for further evaluation. Stable grade 2 spondylolisthesis, severe disc space narrowing at L5-S1 with underlying bilateral spondylolysis at this level. 1.5 cm subluxation L5 on S1 noted at this level. Otherwise, vertebral body heights, spinal alignment are intact. There is approximately 05-10 degrees lumbar side bending to the left which may partially reflect patient positioning or muscle spasm. Otherwise, spinal alignment is intact. IMPRESSION: New vertebral body compression fracture T11 compared to 02/04/2017. Finding is of uncertain radiographic acuity. Lumbar MRI to include lower thoracic segments recommended for further evaluation. 1. Bilateral spondylolysis, grade 2 spondylolisthesis, severe disc space narrowing L5-S1. 1.5 cm stable subluxation of L5 on S1 noted. Lumbar MRI can also further evaluate the debris/severity of exiting nerve compression at this level. 2. 05-10 degrees lumbar side bending to the left which may reflect muscle spasm or patient positioning. Dictated By: Awais Asencio DO Dictated Date/Time: 09/27/17 1435 Signed By: Awais Asencio DO Signed Date/Time: 09/27/17 1443 Transcribed Date/Time: 09/27/17 1439 Normal [facility] AMYLASEon 09-25-2017 Amylase 107 U/L Normal 30-110 [facility] Comment on above: Performed By: #### C REAT-EGFR, SEC CALL ####Main Lab - [id number] [place] [id number] ANISOCYTOSISon 09-25-2017 Anisocytosis presence 2+ Abnormal [facility] Comment on above: Order Comment: @08/30: SMUDGE CELLS added. RFLXG = MORPH.@09/25/1744: GIANT PLATELETS added. RFLXG = MORPH.@09/25/17 0944: POLYCHROM added. RFLXG = MORPH.@09/25/1744: HYPERCHROM added. RFLXG = MORPH.@09/25/1744: HYPOCHROM added. RFLXG = MORPH.@09/25/1744: POIK added. RFLXG = MORPH.@09/25/1744: BASO STIP added. RFLXG = MORPH.@09/25/1744: ANISO added. RFLXG = MORPH.@09/25/1744: MICRO added. RFLXG = MORPH.@09/25/1744: MACRO added. RFLXG = MORPH.@09/25/1744: SPHERE added. RFLXG = MORPH.@09/25/1744: ELLIPTO added. RFLXG = MORPH.@09/25/17943: SIDEROCYTE added. RFLXG = MORPH.@09/25/17943: ADARSH BODIES added. RFLXG = MORPH.@09/25/17943: PELGER-HUET added. RFLXG = MORPH.@09/25/17943: ANA LILIA BODIES added. RFLXG = MORPH.@09/25/17943: SICKLE added. RFLXG = MORPH.@09/25/17943: TARGET added. RFLXG = MORPH.@09/25/17943: TEAR added. RFLXG = MORPH.@09/25/17943: OVAL added. RFLXG = MORPH.@09/25/17943: STOMATO added. RFLXG = MORPH.@09/25/17943: HELMET CELLS added. RFLXG = MORPH.@09/25/17943: HJ BODIES added. RFLXG = MORPH.@09/25/17943: TOXIC GRAN added. RFLXG = MORPH.@09/25/17943: TOXIC VAC added. RFLXG = MORPH.@09/25/17943: DOHLE BODIES added. RFLXG = MORPH.@09/25/17943: NIMISHA CELLS added. RFLXG = MORPH.@09/25/17943: CRENATED RBC added. RFLXG = MORPH.@09/25/17943: ACANTHO added. RFLXG = MORPH.@09/25/17943: ROLY RODS added. RFLXG = MORPH.@09/25/17943: ROULEAUX added. RFLXG = MORPH.@09/25/17943: SCHISTO added. RFLXG = MORPH.@09/25/17943: PARASITES added. RFLXG = MORPH. Performed By: #### C REAT-EGFR, SEC CALL ####Main Lab - [id number] [place], [place] [address] CBC WITH AUTO DIFFon 018 Basophils Auto #/vol (Bld) 0.1 10 3/uL Normal 0.0-0.2 [facility] Comment on above: Order Comment: @08/30: SMUDGE CELLS added. RFLXG = MORPH.@09/25/17943: GIANT PLATELETS added. RFLXG = MORPH.@09/25/17943: POLYCHROM added. RFLXG = MORPH.@09/25/17943: HYPERCHROM added. RFLXG = MORPH.@09/25/17943: HYPOCHROM added. RFLXG = MORPH.@09/25/17943: POIK added. RFLXG = MORPH.@09/25/17943: BASO STIP added. RFLXG = MORPH.@09/25/17943: ANISO added. RFLXG = MORPH.@09/25/17943: MICRO added. RFLXG = MORPH.@09/25/17943: MACRO added. RFLXG = MORPH.@09/25/17943: SPHERE added. RFLXG = MORPH.@09/25/17943: ELLIPTO added. RFLXG = MORPH.@09/25/17943: SIDEROCYTE added. RFLXG = MORPH.@09/25/17943: ADARSH BODIES added. RFLXG = MORPH.@09/25/17943: PELGER-HUET added. RFLXG = MORPH.@09/25/17943: ANA LILIA BODIES added. RFLXG = MORPH.@09/25/17943: SICKLE added. RFLXG = MORPH.@09/25/17943: TARGET added. RFLXG = MORPH.@09/25/17943: TEAR added. RFLXG = MORPH.@09/25/17943: OVAL added. RFLXG = MORPH.@09/25/17943: STOMATO added. RFLXG = MORPH.@09/25/17943: HELMET CELLS added. RFLXG = MORPH.@09/25/17943: HJ BODIES added. RFLXG = MORPH.@09/25/17943: TOXIC GRAN added. RFLXG = MORPH.@09/25/17943: TOXIC VAC added. RFLXG = MORPH.@09/25/17943: DOHLE BODIES added. RFLXG = MORPH.@09/25/17943: NIMISHA CELLS added. RFLXG = MORPH.@09/25/17943: CRENATED RBC added. RFLXG = MORPH.@09/25/17943: ACANTHO added. RFLXG = MORPH.@09/25/17943: ROLY RODS added. RFLXG = MORPH.@09/25/17943: ROULEAUX added. RFLXG = MORPH.@09/25/17943: SCHISTO added. RFLXG = MORPH.@09/25/17943: PARASITES added. RFLXG = MORPH. Performed By: #### C REAT-EGFR, SEC CALL ####Main Lab - [id number] [place], [place] [address] Basophils/100 WBC Auto (Bld) 1.2 % High 0.0-1.0 [facility] Comment on above: Order Comment: @08/30: SMUDGE CELLS added. RFLXG = MORPH.@09/25/17943: GIANT PLATELETS added. RFLXG = MORPH.@09/25/17943: POLYCHROM added. RFLXG = MORPH.@09/25/17943: HYPERCHROM added. RFLXG = MORPH.@09/25/17943: HYPOCHROM added. RFLXG = MORPH.@09/25/17943: POIK added. RFLXG = MORPH.@09/25/17943: BASO STIP added. RFLXG = MORPH.@09/25/17943: ANISO added. RFLXG = MORPH.@09/25/17943: MICRO added. RFLXG = MORPH.@09/25/17943: MACRO added. RFLXG = MORPH.@09/25/17943: SPHERE added. RFLXG = MORPH.@09/25/17943: ELLIPTO added. RFLXG = MORPH.@09/25/17943: SIDEROCYTE added. RFLXG = MORPH.@09/25/17943: ADARSH BODIES added. RFLXG = MORPH.@09/25/17943: PELGER-HUET added. RFLXG = MORPH.@09/25/17943: ANA LILIA BODIES added. RFLXG = MORPH.@09/25/17943: SICKLE added. RFLXG = MORPH.@09/25/17943: TARGET added. RFLXG = MORPH.@09/25/17943: TEAR added. RFLXG = MORPH.@09/25/17943: OVAL added. RFLXG = MORPH.@09/25/17943: STOMATO added. RFLXG = MORPH.@09/25/17943: HELMET CELLS added. RFLXG = MORPH.@09/25/17943: HJ BODIES added. RFLXG = MORPH.@09/25/17943: TOXIC GRAN added. RFLXG = MORPH.@09/25/17943: TOXIC VAC added. RFLXG = MORPH.@09/25/17943: DOHLE BODIES added. RFLXG = MORPH.@09/25/17943: NIMISHA CELLS added. RFLXG = MORPH.@09/25/17943: CRENATED RBC added. RFLXG = MORPH.@09/25/17943: ACANTHO added. RFLXG = MORPH.@09/25/17943: ROLY RODS added. RFLXG = MORPH.@09/25/17943: ROULEAUX added. RFLXG = MORPH.@09/25/17943: SCHISTO added. RFLXG = MORPH.@09/25/17943: PARASITES added. RFLXG = MORPH. Performed By: #### C REAT-EGFR, SEC CALL ####Main Lab - [id number] [place], [place] [address] Eosinophils 0.7 10 3/uL Normal 0.0-0.7 [facility] Comment on above: Order Comment: @08/30: SMUDGE CELLS added. RFLXG = MORPH.@09/25/17943: GIANT PLATELETS added. RFLXG = MORPH.@09/25/17943: POLYCHROM added. RFLXG = MORPH.@09/25/17943: HYPERCHROM added. RFLXG = MORPH.@09/25/17943: HYPOCHROM added. RFLXG = MORPH.@09/25/17943: POIK added. RFLXG = MORPH.@09/25/17943: BASO STIP added. RFLXG = MORPH.@09/25/17943: ANISO added. RFLXG = MORPH.@09/25/17943: MICRO added. RFLXG = MORPH.@09/25/17943: MACRO added. RFLXG = MORPH.@09/25/17943: SPHERE added. RFLXG = MORPH.@09/25/17943: ELLIPTO added. RFLXG = MORPH.@09/25/17943: SIDEROCYTE added. RFLXG = MORPH.@09/25/17943: ADARSH BODIES added. RFLXG = MORPH.@09/25/17943: PELGER-HUET added. RFLXG = MORPH.@09/25/17943: ANA LILIA BODIES added. RFLXG = MORPH.@09/25/17943: SICKLE added. RFLXG = MORPH.@09/25/17943: TARGET added. RFLXG = MORPH.@09/25/17943: TEAR added. RFLXG = MORPH.@09/25/17943: OVAL added. RFLXG = MORPH.@09/25/17943: STOMATO added. RFLXG = MORPH.@09/25/17943: HELMET CELLS added. RFLXG = MORPH.@09/25/17943: HJ BODIES added. RFLXG = MORPH.@09/25/17943: TOXIC GRAN added. RFLXG = MORPH.@09/25/17943: TOXIC VAC added. RFLXG = MORPH.@09/25/17943: DOHLE BODIES added. RFLXG = MORPH.@09/25/17943: NIMISHA CELLS added. RFLXG = MORPH.@09/25/17943: CRENATED RBC added. RFLXG = MORPH.@09/25/17943: ACANTHO added. RFLXG = MORPH.@09/25/17943: ROLY RODS added. RFLXG = MORPH.@09/25/17943: ROULEAUX added. RFLXG = MORPH.@09/25/17943: SCHISTO added. RFLXG = MORPH.@09/25/17943: PARASITES added. RFLXG = MORPH. Performed By: #### C REAT-EGFR, SEC CALL ####[facility] - [id number] [place], [place] [address] Eosinophils/100 leukocytes 6.3 % High 0.0-5.0 [facility] Comment on above: Order Comment: @08/30: SMUDGE CELLS added. RFLXG = MORPH.@09/25/17943: GIANT PLATELETS added. RFLXG = MORPH.@09/25/17943: POLYCHROM added. RFLXG = MORPH.@09/25/17943: HYPERCHROM added. RFLXG = MORPH.@09/25/17943: HYPOCHROM added. RFLXG = MORPH.@09/25/17943: POIK added. RFLXG = MORPH.@09/25/17943: BASO STIP added. RFLXG = MORPH.@09/25/17943: ANISO added. RFLXG = MORPH.@09/25/17943: MICRO added. RFLXG = MORPH.@09/25/17943: MACRO added. RFLXG = MORPH.@09/25/17943: SPHERE added. RFLXG = MORPH.@09/25/17943: ELLIPTO added. RFLXG = MORPH.@09/25/17943: SIDEROCYTE added. RFLXG = MORPH.@09/25/17943: ADARSH BODIES added. RFLXG = MORPH.@09/25/17943: PELGER-HUET added. RFLXG = MORPH.@09/25/17943: ANA LILIA BODIES added. RFLXG = MORPH.@09/25/17943: SICKLE added. RFLXG = MORPH.@09/25/17943: TARGET added. RFLXG = MORPH.@09/25/17943: TEAR added. RFLXG = MORPH.@09/25/17943: OVAL added. RFLXG = MORPH.@09/25/17943: STOMATO added. RFLXG = MORPH.@09/25/17943: HELMET CELLS added. RFLXG = MORPH.@09/25/17943: HJ BODIES added. RFLXG = MORPH.@09/25/17943: TOXIC GRAN added. RFLXG = MORPH.@09/25/17943: TOXIC VAC added. RFLXG = MORPH.@09/25/17943: DOHLE BODIES added. RFLXG = MORPH.@09/25/17943: NIMISHA CELLS added. RFLXG = MORPH.@09/25/17943: CRENATED RBC added. RFLXG = MORPH.@09/25/17943: ACANTHO added. RFLXG = MORPH.@09/25/17943: ROLY RODS added. RFLXG = MORPH.@09/25/17943: ROULEAUX added. RFLXG = MORPH.@09/25/17943: SCHISTO added. RFLXG = MORPH.@09/25/17943: PARASITES added. RFLXG = MORPH. Performed By: #### C REAT-EGFR, SEC CALL ####Main Lab - [id number] [place] [address] Erythrocyte distribution width Auto Ratio (RBC) 33.4 % High 11.5-14.0 [facility] Comment on above: Order Comment: @08/30: SMUDGE CELLS added. RFLXG = MORPH.@09/25/17943: GIANT PLATELETS added. RFLXG = MORPH.@09/25/17943: POLYCHROM added. RFLXG = MORPH.@09/25/17943: HYPERCHROM added. RFLXG = MORPH.@09/25/17943: HYPOCHROM added. RFLXG = MORPH.@09/25/17943: POIK added. RFLXG = MORPH.@09/25/17943: BASO STIP added. RFLXG = MORPH.@09/25/17943: ANISO added. RFLXG = MORPH.@09/25/17943: MICRO added. RFLXG = MORPH.@09/25/17943: MACRO added. RFLXG = MORPH.@09/25/17943: SPHERE added. RFLXG = MORPH.@09/25/17943: ELLIPTO added. RFLXG = MORPH.@09/25/17943: SIDEROCYTE added. RFLXG = MORPH.@09/25/17943: ADARSH BODIES added. RFLXG = MORPH.@09/25/17943: PELGER-HUET added. RFLXG = MORPH.@09/25/17943: ANA LILIA BODIES added. RFLXG = MORPH.@09/25/17943: SICKLE added. RFLXG = MORPH.@09/25/17943: TARGET added. RFLXG = MORPH.@09/25/17943: TEAR added. RFLXG = MORPH.@09/25/17943: OVAL added. RFLXG = MORPH.@09/25/17943: STOMATO added. RFLXG = MORPH.@09/25/17943: HELMET CELLS added. RFLXG = MORPH.@09/25/17943: HJ BODIES added. RFLXG = MORPH.@09/25/17943: TOXIC GRAN added. RFLXG = MORPH.@09/25/17943: TOXIC VAC added. RFLXG = MORPH.@09/25/17943: DOHLE BODIES added. RFLXG = MORPH.@09/25/17943: NIMISHA CELLS added. RFLXG = MORPH.@09/25/17943: CRENATED RBC added. RFLXG = MORPH.@09/25/17943: ACANTHO added. RFLXG = MORPH.@09/25/17943: ROLY RODS added. RFLXG = MORPH.@09/25/17943: ROULEAUX added. RFLXG = MORPH.@09/25/17943: SCHISTO added. RFLXG = MORPH.@09/25/17943: PARASITES added. RFLXG = MORPH. Performed By: #### C REMARY-EGFR, SEC CALL ####Main Lab - [id number] [place] [address] Erythrocytes (RBC) 5.23 x10 6/uL Normal 3.89-5.30 [facility] Comment on above: Order Comment: @08/30: SMUDGE CELLS added. RFLXG = MORPH.@09/25/17943: GIANT PLATELETS added. RFLXG = MORPH.@09/25/17943: POLYCHROM added. RFLXG = MORPH.@09/25/17943: HYPERCHROM added. RFLXG = MORPH.@09/25/17943: HYPOCHROM added. RFLXG = MORPH.@09/25/17943: POIK added. RFLXG = MORPH.@09/25/17943: BASO STIP added. RFLXG = MORPH.@09/25/17943: ANISO added. RFLXG = MORPH.@09/25/17943: MICRO added. RFLXG = MORPH.@09/25/17943: MACRO added. RFLXG = MORPH.@09/25/17943: SPHERE added. RFLXG = MORPH.@09/25/17943: ELLIPTO added. RFLXG = MORPH.@09/25/17943: SIDEROCYTE added. RFLXG = MORPH.@09/25/17943: ADARSH BODIES added. RFLXG = MORPH.@09/25/17943: PELGER-HUET added. RFLXG = MORPH.@09/25/17943: ANA LILIA BODIES added. RFLXG = MORPH.@09/25/17943: SICKLE added. RFLXG = MORPH.@09/25/17943: TARGET added. RFLXG = MORPH.@09/25/17943: TEAR added. RFLXG = MORPH.@09/25/17943: OVAL added. RFLXG = MORPH.@09/25/17943: STOMATO added. RFLXG = MORPH.@09/25/17943: HELMET CELLS added. RFLXG = MORPH.@09/25/17943: HJ BODIES added. RFLXG = MORPH.@09/25/17943: TOXIC GRAN added. RFLXG = MORPH.@09/25/17943: TOXIC VAC added. RFLXG = MORPH.@09/25/17943: DOHLE BODIES added. RFLXG = MORPH.@09/25/17943: NIMISHA CELLS added. RFLXG = MORPH.@09/25/17943: CRENATED RBC added. RFLXG = MORPH.@09/25/17943: ACANTHO added. RFLXG = MORPH.@09/25/17943: ROLY RODS added. RFLXG = MORPH.@09/25/17943: ROULEAUX added. RFLXG = MORPH.@09/25/17943: SCHISTO added. RFLXG = MORPH.@09/25/17943: PARASITES added. RFLXG = MORPH. Performed By: #### C REAT-EGFR, SEC CALL ####Main Lab - [id number] [place] [id number] Hematocrit (HCT) 35.6 % Normal 34.8-45.0 [facility] Comment on above: Order Comment: @08/30: SMUDGE CELLS added. RFLXG = MORPH.@09/25/17943: GIANT PLATELETS added. RFLXG = MORPH.@09/25/17943: POLYCHROM added. RFLXG = MORPH.@09/25/17943: HYPERCHROM added. RFLXG = MORPH.@09/25/17943: HYPOCHROM added. RFLXG = MORPH.@09/25/17943: POIK added. RFLXG = MORPH.@09/25/17943: BASO STIP added. RFLXG = MORPH.@09/25/17943: ANISO added. RFLXG = MORPH.@09/25/17943: MICRO added. RFLXG = MORPH.@09/25/17943: MACRO added. RFLXG = MORPH.@09/25/17943: SPHERE added. RFLXG = MORPH.@09/25/17943: ELLIPTO added. RFLXG = MORPH.@09/25/17943: SIDEROCYTE added. RFLXG = MORPH.@09/25/17943: ADARSH BODIES added. RFLXG = MORPH.@09/25/17943: PELGER-HUET added. RFLXG = MORPH.@09/25/17943: ANA LILIA BODIES added. RFLXG = MORPH.@09/25/17943: SICKLE added. RFLXG = MORPH.@09/25/17943: TARGET added. RFLXG = MORPH.@09/25/17943: TEAR added. RFLXG = MORPH.@09/25/17943: OVAL added. RFLXG = MORPH.@09/25/17943: STOMATO added. RFLXG = MORPH.@09/25/17943: HELMET CELLS added. RFLXG = MORPH.@09/25/17943: HJ BODIES added. RFLXG = MORPH.@09/25/17943: TOXIC GRAN added. RFLXG = MORPH.@09/25/17943: TOXIC VAC added. RFLXG = MORPH.@09/25/17943: DOHLE BODIES added. RFLXG = MORPH.@09/25/17943: NIMISHA CELLS added. RFLXG = MORPH.@09/25/17943: CRENATED RBC added. RFLXG = MORPH.@09/25/17943: ACANTHO added. RFLXG = MORPH.@09/25/17943: ROLY RODS added. RFLXG = MORPH.@09/25/17943: ROULEAUX added. RFLXG = MORPH.@09/25/17943: SCHISTO added. RFLXG = MORPH.@09/25/17943: PARASITES added. RFLXG = MORPH. Performed By: #### C REAT-EGFR, SEC CALL ####Main Lab - [id number] [place], [place] [address] Hemoglobin mass conc (Bld) 11.3 g/dL Low 11.6-14.9 [facility] Comment on above: Order Comment: @08/30: SMUDGE CELLS added. RFLXG = MORPH.@09/25/17943: GIANT PLATELETS added. RFLXG = MORPH.@09/25/17943: POLYCHROM added. RFLXG = MORPH.@09/25/17943: HYPERCHROM added. RFLXG = MORPH.@09/25/17943: HYPOCHROM added. RFLXG = MORPH.@09/25/17943: POIK added. RFLXG = MORPH.@09/25/17943: BASO STIP added. RFLXG = MORPH.@09/25/17943: ANISO added. RFLXG = MORPH.@09/25/17943: MICRO added. RFLXG = MORPH.@09/25/17943: MACRO added. RFLXG = MORPH.@09/25/17943: SPHERE added. RFLXG = MORPH.@09/25/17943: ELLIPTO added. RFLXG = MORPH.@09/25/17943: SIDEROCYTE added. RFLXG = MORPH.@09/25/17943: ADARSH BODIES added. RFLXG = MORPH.@09/25/17943: PELGER-HUET added. RFLXG = MORPH.@09/25/17943: ANA LILIA BODIES added. RFLXG = MORPH.@09/25/17943: SICKLE added. RFLXG = MORPH.@09/25/17943: TARGET added. RFLXG = MORPH.@09/25/17943: TEAR added. RFLXG = MORPH.@09/25/17943: OVAL added. RFLXG = MORPH.@09/25/17943: STOMATO added. RFLXG = MORPH.@09/25/17943: HELMET CELLS added. RFLXG = MORPH.@09/25/17943: HJ BODIES added. RFLXG = MORPH.@09/25/17943: TOXIC GRAN added. RFLXG = MORPH.@09/25/17943: TOXIC VAC added. RFLXG = MORPH.@09/25/17943: DOHLE BODIES added. RFLXG = MORPH.@09/25/17943: NIMISHA CELLS added. RFLXG = MORPH.@09/25/17943: CRENATED RBC added. RFLXG = MORPH.@09/25/17943: ACANTHO added. RFLXG = MORPH.@09/25/17943: ROLY RODS added. RFLXG = MORPH.@09/25/17943: ROULEAUX added. RFLXG = MORPH.@09/25/17943: SCHISTO added. RFLXG = MORPH.@09/25/17943: PARASITES added. RFLXG = MORPH. Performed By: #### C REAT-EGFR, SEC CALL ####Main Lab - [id number] [place], [place] [address] Lymphocytes 1.7 10 3/uL Normal 1.0-3.5 [facility] Comment on above: Order Comment: @08/30: SMUDGE CELLS added. RFLXG = MORPH.@09/25/17943: GIANT PLATELETS added. RFLXG = MORPH.@09/25/17943: POLYCHROM added. RFLXG = MORPH.@09/25/17943: HYPERCHROM added. RFLXG = MORPH.@09/25/17943: HYPOCHROM added. RFLXG = MORPH.@09/25/17943: POIK added. RFLXG = MORPH.@09/25/17943: BASO STIP added. RFLXG = MORPH.@09/25/17943: ANISO added. RFLXG = MORPH.@09/25/17943: MICRO added. RFLXG = MORPH.@09/25/17943: MACRO added. RFLXG = MORPH.@09/25/17943: SPHERE added. RFLXG = MORPH.@09/25/17943: ELLIPTO added. RFLXG = MORPH.@09/25/17943: SIDEROCYTE added. RFLXG = MORPH.@09/25/17943: ADARSH BODIES added. RFLXG = MORPH.@09/25/17943: PELGER-HUET added. RFLXG = MORPH.@09/25/17943: ANA LILIA BODIES added. RFLXG = MORPH.@09/25/17943: SICKLE added. RFLXG = MORPH.@09/25/17943: TARGET added. RFLXG = MORPH.@09/25/17943: TEAR added. RFLXG = MORPH.@09/25/17943: OVAL added. RFLXG = MORPH.@09/25/17943: STOMATO added. RFLXG = MORPH.@09/25/17943: HELMET CELLS added. RFLXG = MORPH.@09/25/17943: HJ BODIES added. RFLXG = MORPH.@09/25/17943: TOXIC GRAN added. RFLXG = MORPH.@09/25/17943: TOXIC VAC added. RFLXG = MORPH.@09/25/17943: DOHLE BODIES added. RFLXG = MORPH.@09/25/17943: NIMISHA CELLS added. RFLXG = MORPH.@09/25/17943: CRENATED RBC added. RFLXG = MORPH.@09/25/17943: ACANTHO added. RFLXG = MORPH.@09/25/17943: ROLY RODS added. RFLXG = MORPH.@09/25/17943: ROULEAUX added. RFLXG = MORPH.@09/25/17943: SCHISTO added. RFLXG = MORPH.@09/25/17943: PARASITES added. RFLXG = MORPH. Performed By: #### C REAT-EGFR, SEC CALL ####Main Lab - [id number] [place], [place] [address] Lymphocytes/100 leukocytes 15.4 % Low 24.0-44.0 [facility] Comment on above: Order Comment: @08/30: SMUDGE CELLS added. RFLXG = MORPH.@09/25/17943: GIANT PLATELETS added. RFLXG = MORPH.@09/25/17943: POLYCHROM added. RFLXG = MORPH.@09/25/17943: HYPERCHROM added. RFLXG = MORPH.@09/25/17943: HYPOCHROM added. RFLXG = MORPH.@09/25/17943: POIK added. RFLXG = MORPH.@09/25/17943: BASO STIP added. RFLXG = MORPH.@09/25/17943: ANISO added. RFLXG = MORPH.@09/25/17943: MICRO added. RFLXG = MORPH.@09/25/17943: MACRO added. RFLXG = MORPH.@09/25/17943: SPHERE added. RFLXG = MORPH.@09/25/17943: ELLIPTO added. RFLXG = MORPH.@09/25/17943: SIDEROCYTE added. RFLXG = MORPH.@09/25/17943: ADARSH BODIES added. RFLXG = MORPH.@09/25/17943: PELGER-HUET added. RFLXG = MORPH.@09/25/17943: ANA LIILA BODIES added. RFLXG = MORPH.@09/25/17943: SICKLE added. RFLXG = MORPH.@09/25/17943: TARGET added. RFLXG = MORPH.@09/25/17943: TEAR added. RFLXG = MORPH.@09/25/17943: OVAL added. RFLXG = MORPH.@09/25/17943: STOMATO added. RFLXG = MORPH.@09/25/17943: HELMET CELLS added. RFLXG = MORPH.@09/25/17943: HJ BODIES added. RFLXG = MORPH.@09/25/17943: TOXIC GRAN added. RFLXG = MORPH.@09/25/17943: TOXIC VAC added. RFLXG = MORPH.@09/25/17943: DOHLE BODIES added. RFLXG = MORPH.@09/25/17943: NIMISHA CELLS added. RFLXG = MORPH.@09/25/17943: CRENATED RBC added. RFLXG = MORPH.@09/25/17943: ACANTHO added. RFLXG = MORPH.@09/25/17943: ROLY RODS added. RFLXG = MORPH.@09/25/17943: ROULEAUX added. RFLXG = MORPH.@09/25/17943: SCHISTO added. RFLXG = MORPH.@09/25/17943: PARASITES added. RFLXG = MORPH. Performed By: #### C REAT-EGFR, SEC CALL ####Main Lab - [id number] [place] [address] MCH 21.6 pg Low 27.0-31.0 [facility] Comment on above: Order Comment: @08/30: SMUDGE CELLS added. RFLXG = MORPH.@09/25/17943: GIANT PLATELETS added. RFLXG = MORPH.@09/25/17943: POLYCHROM added. RFLXG = MORPH.@09/25/17943: HYPERCHROM added. RFLXG = MORPH.@09/25/17943: HYPOCHROM added. RFLXG = MORPH.@09/25/17943: POIK added. RFLXG = MORPH.@09/25/17943: BASO STIP added. RFLXG = MORPH.@09/25/17943: ANISO added. RFLXG = MORPH.@09/25/17943: MICRO added. RFLXG = MORPH.@09/25/17943: MACRO added. RFLXG = MORPH.@09/25/17943: SPHERE added. RFLXG = MORPH.@09/25/17943: ELLIPTO added. RFLXG = MORPH.@09/25/17943: SIDEROCYTE added. RFLXG = MORPH.@09/25/17943: ADARSH BODIES added. RFLXG = MORPH.@09/25/17943: PELGER-HUET added. RFLXG = MORPH.@09/25/17943: ANA LILIA BODIES added. RFLXG = MORPH.@09/25/17943: SICKLE added. RFLXG = MORPH.@09/25/17943: TARGET added. RFLXG = MORPH.@09/25/17943: TEAR added. RFLXG = MORPH.@09/25/17943: OVAL added. RFLXG = MORPH.@09/25/17943: STOMATO added. RFLXG = MORPH.@09/25/17943: HELMET CELLS added. RFLXG = MORPH.@09/25/17943: HJ BODIES added. RFLXG = MORPH.@09/25/17943: TOXIC GRAN added. RFLXG = MORPH.@09/25/17943: TOXIC VAC added. RFLXG = MORPH.@09/25/17943: DOHLE BODIES added. RFLXG = MORPH.@09/25/17943: NIMISHA CELLS added. RFLXG = MORPH.@09/25/17943: CRENATED RBC added. RFLXG = MORPH.@09/25/17943: ACANTHO added. RFLXG = MORPH.@09/25/17943: ROLY RODS added. RFLXG = MORPH.@09/25/17943: ROULEAUX added. RFLXG = MORPH.@09/25/17943: SCHISTO added. RFLXG = MORPH.@09/25/17943: PARASITES added. RFLXG = MORPH. Performed By: #### C REAT-EGFR, SEC CALL ####Main Lab - [id number] [place] [id number] MCHC mass conc (RBC) 31.8 g/dL Low 32.0-36.0 [facility] Comment on above: Order Comment: @08/30: SMUDGE CELLS added. RFLXG = MORPH.@09/25/17943: GIANT PLATELETS added. RFLXG = MORPH.@09/25/17943: POLYCHROM added. RFLXG = MORPH.@09/25/17943: HYPERCHROM added. RFLXG = MORPH.@09/25/17943: HYPOCHROM added. RFLXG = MORPH.@09/25/17943: POIK added. RFLXG = MORPH.@09/25/17943: BASO STIP added. RFLXG = MORPH.@09/25/17943: ANISO added. RFLXG = MORPH.@09/25/17943: MICRO added. RFLXG = MORPH.@09/25/17943: MACRO added. RFLXG = MORPH.@09/25/17943: SPHERE added. RFLXG = MORPH.@09/25/17943: ELLIPTO added. RFLXG = MORPH.@09/25/17943: SIDEROCYTE added. RFLXG = MORPH.@09/25/17943: ADARSH BODIES added. RFLXG = MORPH.@09/25/17943: PELGER-HUET added. RFLXG = MORPH.@09/25/17943: ANA LILIA BODIES added. RFLXG = MORPH.@09/25/17943: SICKLE added. RFLXG = MORPH.@09/25/17943: TARGET added. RFLXG = MORPH.@09/25/17943: TEAR added. RFLXG = MORPH.@09/25/17943: OVAL added. RFLXG = MORPH.@09/25/17943: STOMATO added. RFLXG = MORPH.@09/25/17943: HELMET CELLS added. RFLXG = MORPH.@09/25/17943: HJ BODIES added. RFLXG = MORPH.@09/25/17943: TOXIC GRAN added. RFLXG = MORPH.@09/25/17943: TOXIC VAC added. RFLXG = MORPH.@09/25/17943: DOHLE BODIES added. RFLXG = MORPH.@09/25/17943: NIMISHA CELLS added. RFLXG = MORPH.@09/25/17943: CRENATED RBC added. RFLXG = MORPH.@09/25/17943: ACANTHO added. RFLXG = MORPH.@09/25/17943: ROLY RODS added. RFLXG = MORPH.@09/25/17943: ROULEAUX added. RFLXG = MORPH.@09/25/17943: SCHISTO added. RFLXG = MORPH.@09/25/17943: PARASITES added. RFLXG = MORPH. Performed By: #### C REAT-EGFR, SEC CALL ####Main Lab - [id number] [place], [place] [address] MCV 68.1 fL Low 78.0-100.0 [facility] Comment on above: Order Comment: @08/30: SMUDGE CELLS added. RFLXG = MORPH.@09/25/17943: GIANT PLATELETS added. RFLXG = MORPH.@09/25/17943: POLYCHROM added. RFLXG = MORPH.@09/25/17943: HYPERCHROM added. RFLXG = MORPH.@09/25/17943: HYPOCHROM added. RFLXG = MORPH.@09/25/17943: POIK added. RFLXG = MORPH.@09/25/17943: BASO STIP added. RFLXG = MORPH.@09/25/17943: ANISO added. RFLXG = MORPH.@09/25/17943: MICRO added. RFLXG = MORPH.@09/25/17943: MACRO added. RFLXG = MORPH.@09/25/17943: SPHERE added. RFLXG = MORPH.@09/25/17943: ELLIPTO added. RFLXG = MORPH.@09/25/17943: SIDEROCYTE added. RFLXG = MORPH.@09/25/17943: ADARSH BODIES added. RFLXG = MORPH.@09/25/17943: PELGER-HUET added. RFLXG = MORPH.@09/25/17943: ANA LILIA BODIES added. RFLXG = MORPH.@09/25/17943: SICKLE added. RFLXG = MORPH.@09/25/17943: TARGET added. RFLXG = MORPH.@09/25/17943: TEAR added. RFLXG = MORPH.@09/25/17943: OVAL added. RFLXG = MORPH.@09/25/17943: STOMATO added. RFLXG = MORPH.@09/25/17943: HELMET CELLS added. RFLXG = MORPH.@09/25/17943: HJ BODIES added. RFLXG = MORPH.@09/25/17943: TOXIC GRAN added. RFLXG = MORPH.@09/25/17943: TOXIC VAC added. RFLXG = MORPH.@09/25/17943: DOHLE BODIES added. RFLXG = MORPH.@09/25/17943: NIMISHA CELLS added. RFLXG = MORPH.@09/25/17943: CRENATED RBC added. RFLXG = MORPH.@09/25/17943: ACANTHO added. RFLXG = MORPH.@09/25/17943: ROLY RODS added. RFLXG = MORPH.@09/25/17943: ROULEAUX added. RFLXG = MORPH.@09/25/17943: SCHISTO added. RFLXG = MORPH.@09/25/17943: PARASITES added. RFLXG = MORPH. Performed By: #### C REAT-EGFR, SEC CALL ####Main Lab - [id number] [place], [place] [address] Monocytes 0.9 10 3/uL High 0.2-0.8 [facility] Comment on above: Order Comment: @08/30: SMUDGE CELLS added. RFLXG = MORPH.@09/25/17943: GIANT PLATELETS added. RFLXG = MORPH.@09/25/17943: POLYCHROM added. RFLXG = MORPH.@09/25/17943: HYPERCHROM added. RFLXG = MORPH.@09/25/17943: HYPOCHROM added. RFLXG = MORPH.@09/25/17943: POIK added. RFLXG = MORPH.@09/25/17943: BASO STIP added. RFLXG = MORPH.@09/25/17943: ANISO added. RFLXG = MORPH.@09/25/17943: MICRO added. RFLXG = MORPH.@09/25/17943: MACRO added. RFLXG = MORPH.@09/25/17943: SPHERE added. RFLXG = MORPH.@09/25/17943: ELLIPTO added. RFLXG = MORPH.@09/25/17943: SIDEROCYTE added. RFLXG = MORPH.@09/25/17943: ADARSH BODIES added. RFLXG = MORPH.@09/25/17943: PELGER-HUET added. RFLXG = MORPH.@09/25/17943: ANA LILIA BODIES added. RFLXG = MORPH.@09/25/17943: SICKLE added. RFLXG = MORPH.@09/25/17943: TARGET added. RFLXG = MORPH.@09/25/17943: TEAR added. RFLXG = MORPH.@09/25/17943: OVAL added. RFLXG = MORPH.@09/25/17943: STOMATO added. RFLXG = MORPH.@09/25/17943: HELMET CELLS added. RFLXG = MORPH.@09/25/17943: HJ BODIES added. RFLXG = MORPH.@09/25/17943: TOXIC GRAN added. RFLXG = MORPH.@09/25/17943: TOXIC VAC added. RFLXG = MORPH.@09/25/17943: DOHLE BODIES added. RFLXG = MORPH.@09/25/17943: NIMISHA CELLS added. RFLXG = MORPH.@09/25/17943: CRENATED RBC added. RFLXG = MORPH.@09/25/17943: ACANTHO added. RFLXG = MORPH.@09/25/17943: ROLY RODS added. RFLXG = MORPH.@09/25/17943: ROULEAUX added. RFLXG = MORPH.@09/25/17943: SCHISTO added. RFLXG = MORPH.@09/25/17943: PARASITES added. RFLXG = MORPH. Performed By: #### C REAT-EGFR, SEC CALL ####Main Lab - [id number] [place], [place] [address] Monocytes/100 leukocytes 8.2 % Normal 1.7-9.3 [facility] Comment on above: Order Comment: @08/30: SMUDGE CELLS added. RFLXG = MORPH.@09/25/17943: GIANT PLATELETS added. RFLXG = MORPH.@09/25/17943: POLYCHROM added. RFLXG = MORPH.@09/25/17943: HYPERCHROM added. RFLXG = MORPH.@09/25/17943: HYPOCHROM added. RFLXG = MORPH.@09/25/17943: POIK added. RFLXG = MORPH.@09/25/17943: BASO STIP added. RFLXG = MORPH.@09/25/17943: ANISO added. RFLXG = MORPH.@09/25/17943: MICRO added. RFLXG = MORPH.@09/25/17943: MACRO added. RFLXG = MORPH.@09/25/17943: SPHERE added. RFLXG = MORPH.@09/25/17943: ELLIPTO added. RFLXG = MORPH.@09/25/17943: SIDEROCYTE added. RFLXG = MORPH.@09/25/17943: ADARSH BODIES added. RFLXG = MORPH.@09/25/17943: PELGER-HUET added. RFLXG = MORPH.@09/25/17943: ANA LILIA BODIES added. RFLXG = MORPH.@09/25/17943: SICKLE added. RFLXG = MORPH.@09/25/17943: TARGET added. RFLXG = MORPH.@09/25/17943: TEAR added. RFLXG = MORPH.@09/25/17943: OVAL added. RFLXG = MORPH.@09/25/17943: STOMATO added. RFLXG = MORPH.@09/25/17943: HELMET CELLS added. RFLXG = MORPH.@09/25/17943: HJ BODIES added. RFLXG = MORPH.@09/25/17943: TOXIC GRAN added. RFLXG = MORPH.@09/25/17943: TOXIC VAC added. RFLXG = MORPH.@09/25/17943: DOHLE BODIES added. RFLXG = MORPH.@09/25/17943: NIMISHA CELLS added. RFLXG = MORPH.@09/25/17943: CRENATED RBC added. RFLXG = MORPH.@09/25/17943: ACANTHO added. RFLXG = MORPH.@09/25/17943: ROLY RODS added. RFLXG = MORPH.@09/25/17943: ROULEAUX added. RFLXG = MORPH.@09/25/17943: SCHISTO added. RFLXG = MORPH.@09/25/17943: PARASITES added. RFLXG = MORPH. Performed By: #### C REAT-EGFR, SEC CALL ####Main Lab - [id number] [place] [address] Neutrophils 7.8 10 3/uL High 1.5-6.7 [facility] Comment on above: Order Comment: @08/30: SMUDGE CELLS added. RFLXG = MORPH.@09/25/17943: GIANT PLATELETS added. RFLXG = MORPH.@09/25/17943: POLYCHROM added. RFLXG = MORPH.@09/25/17943: HYPERCHROM added. RFLXG = MORPH.@09/25/17943: HYPOCHROM added. RFLXG = MORPH.@09/25/17943: POIK added. RFLXG = MORPH.@09/25/17943: BASO STIP added. RFLXG = MORPH.@09/25/17943: ANISO added. RFLXG = MORPH.@09/25/17943: MICRO added. RFLXG = MORPH.@09/25/17943: MACRO added. RFLXG = MORPH.@09/25/17943: SPHERE added. RFLXG = MORPH.@09/25/17943: ELLIPTO added. RFLXG = MORPH.@09/25/17943: SIDEROCYTE added. RFLXG = MORPH.@09/25/17943: ADARSH BODIES added. RFLXG = MORPH.@09/25/17943: PELGER-HUET added. RFLXG = MORPH.@09/25/17943: ANA LILIA BODIES added. RFLXG = MORPH.@09/25/17943: SICKLE added. RFLXG = MORPH.@09/25/17943: TARGET added. RFLXG = MORPH.@09/25/17943: TEAR added. RFLXG = MORPH.@09/25/17943: OVAL added. RFLXG = MORPH.@09/25/17943: STOMATO added. RFLXG = MORPH.@09/25/17943: HELMET CELLS added. RFLXG = MORPH.@09/25/17943: HJ BODIES added. RFLXG = MORPH.@09/25/17943: TOXIC GRAN added. RFLXG = MORPH.@09/25/17943: TOXIC VAC added. RFLXG = MORPH.@09/25/17943: DOHLE BODIES added. RFLXG = MORPH.@09/25/17943: NIMISHA CELLS added. RFLXG = MORPH.@09/25/17943: CRENATED RBC added. RFLXG = MORPH.@09/25/17943: ACANTHO added. RFLXG = MORPH.@09/25/17943: ROLY RODS added. RFLXG = MORPH.@09/25/17943: ROULEAUX added. RFLXG = MORPH.@09/25/17943: SCHISTO added. RFLXG = MORPH.@09/25/17943: PARASITES added. RFLXG = MORPH. Performed By: #### C REAT-EGFR, SEC CALL ####Main Lab - [id number] [place], [place] [address] Platelet mean volume (PMV) 8.6 fL Normal 6.0-9.5 [facility] Comment on above: Order Comment: @08/30: SMUDGE CELLS added. RFLXG = MORPH.@09/25/17943: GIANT PLATELETS added. RFLXG = MORPH.@09/25/17943: POLYCHROM added. RFLXG = MORPH.@09/25/17943: HYPERCHROM added. RFLXG = MORPH.@09/25/17943: HYPOCHROM added. RFLXG = MORPH.@09/25/17943: POIK added. RFLXG = MORPH.@09/25/17943: BASO STIP added. RFLXG = MORPH.@09/25/17943: ANISO added. RFLXG = MORPH.@09/25/17943: MICRO added. RFLXG = MORPH.@09/25/17943: MACRO added. RFLXG = MORPH.@09/25/17943: SPHERE added. RFLXG = MORPH.@09/25/17943: ELLIPTO added. RFLXG = MORPH.@09/25/17943: SIDEROCYTE added. RFLXG = MORPH.@09/25/17943: ADARSH BODIES added. RFLXG = MORPH.@09/25/17943: PELGER-HUET added. RFLXG = MORPH.@09/25/17943: ANA LILIA BODIES added. RFLXG = MORPH.@09/25/17943: SICKLE added. RFLXG = MORPH.@09/25/17943: TARGET added. RFLXG = MORPH.@09/25/17943: TEAR added. RFLXG = MORPH.@09/25/17943: OVAL added. RFLXG = MORPH.@09/25/17943: STOMATO added. RFLXG = MORPH.@09/25/17943: HELMET CELLS added. RFLXG = MORPH.@09/25/17943: HJ BODIES added. RFLXG = MORPH.@09/25/17943: TOXIC GRAN added. RFLXG = MORPH.@09/25/17943: TOXIC VAC added. RFLXG = MORPH.@09/25/17943: DOHLE BODIES added. RFLXG = MORPH.@09/25/17943: NIMISHA CELLS added. RFLXG = MORPH.@09/25/17943: CRENATED RBC added. RFLXG = MORPH.@09/25/17943: ACANTHO added. RFLXG = MORPH.@09/25/17943: ROLY RODS added. RFLXG = MORPH.@09/25/17943: ROULEAUX added. RFLXG = MORPH.@09/25/17943: SCHISTO added. RFLXG = MORPH.@09/25/17943: PARASITES added. RFLXG = MORPH. Performed By: #### C REAT-EGFR, SEC CALL ####Main Lab - [id number] [place], [place] [address] Platelets 352 10 3/uL Normal 150-450 [facility] Comment on above: Order Comment: @08/30: SMUDGE CELLS added. RFLXG = MORPH.@09/25/17943: GIANT PLATELETS added. RFLXG = MORPH.@09/25/17943: POLYCHROM added. RFLXG = MORPH.@09/25/17943: HYPERCHROM added. RFLXG = MORPH.@09/25/17943: HYPOCHROM added. RFLXG = MORPH.@09/25/17943: POIK added. RFLXG = MORPH.@09/25/17943: BASO STIP added. RFLXG = MORPH.@09/25/17943: ANISO added. RFLXG = MORPH.@09/25/17943: MICRO added. RFLXG = MORPH.@09/25/17943: MACRO added. RFLXG = MORPH.@09/25/17943: SPHERE added. RFLXG = MORPH.@09/25/17943: ELLIPTO added. RFLXG = MORPH.@09/25/17943: SIDEROCYTE added. RFLXG = MORPH.@09/25/17943: ADARSH BODIES added. RFLXG = MORPH.@09/25/17943: PELGER-HUET added. RFLXG = MORPH.@09/25/17943: ANA LILIA BODIES added. RFLXG = MORPH.@09/25/17943: SICKLE added. RFLXG = MORPH.@09/25/17943: TARGET added. RFLXG = MORPH.@09/25/17943: TEAR added. RFLXG = MORPH.@09/25/17943: OVAL added. RFLXG = MORPH.@09/25/17943: STOMATO added. RFLXG = MORPH.@09/25/17943: HELMET CELLS added. RFLXG = MORPH.@09/25/17943: HJ BODIES added. RFLXG = MORPH.@09/25/17943: TOXIC GRAN added. RFLXG = MORPH.@09/25/17943: TOXIC VAC added. RFLXG = MORPH.@09/25/17943: DOHLE BODIES added. RFLXG = MORPH.@09/25/17943: NIMISHA CELLS added. RFLXG = MORPH.@09/25/17943: CRENATED RBC added. RFLXG = MORPH.@09/25/17943: ACANTHO added. RFLXG = MORPH.@09/25/17943: ROLY RODS added. RFLXG = MORPH.@09/25/17943: ROULEAUX added. RFLXG = MORPH.@09/25/17943: SCHISTO added. RFLXG = MORPH.@09/25/17943: PARASITES added. RFLXG = MORPH. Performed By: #### C REAT-EGFR, SEC CALL ####Main Lab - [id number] [place], [place] [address] Segmented Neutrophils/100 leukocytes 68.9 % High 36.0-66.0 [facility] Comment on above: Order Comment: @08/30: SMUDGE CELLS added. RFLXG = MORPH.@09/25/17943: GIANT PLATELETS added. RFLXG = MORPH.@09/25/17943: POLYCHROM added. RFLXG = MORPH.@09/25/17943: HYPERCHROM added. RFLXG = MORPH.@09/25/17943: HYPOCHROM added. RFLXG = MORPH.@09/25/17943: POIK added. RFLXG = MORPH.@09/25/17943: BASO STIP added. RFLXG = MORPH.@09/25/17943: ANISO added. RFLXG = MORPH.@09/25/17943: MICRO added. RFLXG = MORPH.@09/25/17943: MACRO added. RFLXG = MORPH.@09/25/17943: SPHERE added. RFLXG = MORPH.@09/25/17943: ELLIPTO added. RFLXG = MORPH.@09/25/17943: SIDEROCYTE added. RFLXG = MORPH.@09/25/17943: ADARSH BODIES added. RFLXG = MORPH.@09/25/17943: PELGER-HUET added. RFLXG = MORPH.@09/25/17943: ANA LILIA BODIES added. RFLXG = MORPH.@09/25/17943: SICKLE added. RFLXG = MORPH.@09/25/17943: TARGET added. RFLXG = MORPH.@09/25/17943: TEAR added. RFLXG = MORPH.@01/28/18 0944: OVAL added. RFLXG = MORPH.@09/25/17943: STOMATO added. RFLXG = MORPH.@09/25/17943: HELMET CELLS added. RFLXG = MORPH.@09/25/17943: HJ BODIES added. RFLXG = MORPH.@09/25/17943: TOXIC GRAN added. RFLXG = MORPH.@09/25/17943: TOXIC VAC added. RFLXG = MORPH.@09/25/17943: DOHLE BODIES added. RFLXG = MORPH.@09/25/17943: NIMISHA CELLS added. RFLXG = MORPH.@09/25/17943: CRENATED RBC added. RFLXG = MORPH.@09/25/17943: ACANTHO added. RFLXG = MORPH.@09/25/17943: ROLY RODS added. RFLXG = MORPH.@09/25/17943: ROULEAUX added. RFLXG = MORPH.@09/25/17943: SCHISTO added. RFLXG = MORPH.@09/25/17943: PARASITES added. RFLXG = MORPH. Performed By: #### C REAT-EGFR, SEC CALL ####Main Lab - [id number] [place] [address] WBC (Leukocytes) 11.3 10 3/uL High 4.0-10.5 [facility] Comment on above: Order Comment: @08/30: SMUDGE CELLS added. RFLXG = MORPH.@09/25/17943: GIANT PLATELETS added. RFLXG = MORPH.@09/25/17943: POLYCHROM added. RFLXG = MORPH.@09/25/17943: HYPERCHROM added. RFLXG = MORPH.@09/25/17943: HYPOCHROM added. RFLXG = MORPH.@09/25/17943: POIK added. RFLXG = MORPH.@09/25/17943: BASO STIP added. RFLXG = MORPH.@09/25/17943: ANISO added. RFLXG = MORPH.@09/25/17943: MICRO added. RFLXG = MORPH.@09/25/17943: MACRO added. RFLXG = MORPH.@09/25/17943: SPHERE added. RFLXG = MORPH.@09/25/17943: ELLIPTO added. RFLXG = MORPH.@09/25/17943: SIDEROCYTE added. RFLXG = MORPH.@09/25/17943: ADARSH BODIES added. RFLXG = MORPH.@09/25/17943: PELGER-HUET added. RFLXG = MORPH.@09/25/17943: ANA LILIA BODIES added. RFLXG = MORPH.@09/25/17943: SICKLE added. RFLXG = MORPH.@09/25/17943: TARGET added. RFLXG = MORPH.@09/25/17943: TEAR added. RFLXG = MORPH.@09/25/17943: OVAL added. RFLXG = MORPH.@09/25/17943: STOMATO added. RFLXG = MORPH.@09/25/17943: HELMET CELLS added. RFLXG = MORPH.@09/25/17943: HJ BODIES added. RFLXG = MORPH.@09/25/17943: TOXIC GRAN added. RFLXG = MORPH.@09/25/17943: TOXIC VAC added. RFLXG = MORPH.@09/25/17943: DOHLE BODIES added. RFLXG = MORPH.@09/25/17943: NIMISHA CELLS added. RFLXG = MORPH.@09/25/17943: CRENATED RBC added. RFLXG = MORPH.@09/25/17943: ACANTHO added. RFLXG = MORPH.@09/25/17943: ROLY RODS added. RFLXG = MORPH.@09/25/17943: ROULEAUX added. RFLXG = MORPH.@09/25/17943: SCHISTO added. RFLXG = MORPH.@09/25/17943: PARASITES added. RFLXG = MORPH. Performed By: #### C REAT-EGFR, SEC CALL ####[facility] - [id number], [place] [address] COMPREHENSIVE METABOLIC PANE Negro 09-25-2017 Albumin 4.8 g/dL Normal 3.9-5.0 [facility] Comment on above: Performed By: #### C REAT-EGFR, SEC CALL ####[facility] - [id number] [place], [place] [address] Albumin/Globulin Ratio 1.4 {ratio} Normal 1.1-1.8 [facility] Comment on above: Performed By: #### C REAT-EGFR, SEC CALL ####[facility] - [id number] [place], [place] [address] Alkaline phosphatase (ALP) 75 U/L Normal 43-122 [facility] Comment on above: Performed By: #### C REAT-EGFR, SEC CALL ####[facility] - [id number] [place], [place] [address] ALT/SGPT 14 U/L Normal 7-56 [facility] Comment on above: Performed By: #### C REAT-EGFR, SEC CALL ####[facility] - [id number] [place], [place] [address] Anion gap 17 mmol/L Normal 9-18 [facility] Comment on above: Performed By: #### C REAT-EGFR, SEC CALL ####[facility] - [id number] [place], [place] [address] AST/SGOT 20 U/L Normal 8-39 [facility] Comment on above: Performed By: #### C REAT-EGFR, SEC CALL ####[facility] - [id number] [place], [place] [address] Bilirubin (total) 0.5 mg/dL Normal 0.2-1.3 [facility] Comment on above: Performed By: #### C REAT-EGFR, SEC CALL ####[facility] - [id number] [place], [place] [address] BUN (urea nitrogen) 47 mg/dL High 7-21 [facility] Comment on above: Performed By: #### C REAT-EGFR, SEC CALL ####[facility] - [id number] [place], [place] [address] BUN/Creatinine Ratio 26.4 Ratio Normal 5.0-42.0 [facility] Comment on above: Performed By: #### C REAT-EGFR, SEC CALL ####[facility] - [id number] [place], [place] [address] Calcium 9.6 mg/dL Normal 8.4-10.2 [facility] Comment on above: Performed By: #### C REAT-EGFR, SEC CALL ####[facility] - [id number] [place] [address] Chloride 105 mmol/L Normal 98-107 [facility] Comment on above: Performed By: #### C REAT-EGFR, SEC CALL ####[facility] - [id number] [place] [address] CO2 17 mmol/L Low 22-31 [facility] Comment on above: Performed By: #### C REAT-EGFR, SEC CALL ####[facility] - [id number] [place] [address] Creatinine 1.78 mg/dL High 0.80-1.30 [facility] Comment on above: Performed By: #### C REAT-EGFR, SEC CALL ####[facility] - [id number] [place] [address] Creatinine 28.50 mg/dL Normal [facility] Comment on above: Result Comment: COCK CROFT-GAULT FORMULA 1972 Performed By: #### C REAT-EGFR, SEC CALL ####[facility] - [id number] [place] [address] eGFR (non-black) 29.000 mL/min/{1.73_m2} Normal [facility] Comment on above: Performed By: #### C REAT-EGFR, SEC CALL ####[facility] - [id number] [place] [address] Globulin 3.4 g/dL Normal [facility] Comment on above: Performed By: #### C REAT-EGFR, SEC CALL ####[facility] - [id number] [place] [address] Glucose mass conc 110 mg/dL High 70-99 [facility] Comment on above: Result Comment: The glucose range is based on recommendations from theAmerican Diabetes Association for fasting blood glucoserange. Performed By: #### C REAT-EGFR, SEC CALL ####[facility] - [id number] [place], [place] [address] Potassium molar conc 4.6 mmol/L Normal 3.6-5.0 [facility] Comment on above: Performed By: #### C REAT-EGFR, SEC CALL ####[facility] - [id number] [place], [place] [address] Protein 8.2 g/dL Normal 6.3-8.2 [facility] Comment on above: Performed By: #### C REAT-EGFR, SEC CALL ####[facility] - [id number] [place], [place] [address] Sodium 134 mmol/L Low 137-145 [facility] Comment on above: Performed By: #### C REAT-EGFR, SEC CALL ####[facility] - [id number] [place], [place] [address] Age 57 Years Normal [facility] Comment on above: Performed By: #### C REAT-EGFR, SEC CALL ####[facility] - [id number] [place], [place] [address] CT ABDOMEN PELVIS W/Oon 08-30 CT ABDOMEN PELVIS W/O [facility] [address] [place], [place] [id number] Diagnostic Imaging Report : [id number] Signed Name: BLAS LUJAN MRUN: [id number] : 1960 Loc: ED Age / Sex: 57 / F ADM Status: REG ER ADM Date: 09/25/17 Room/Bed: Ordering Physician: Willi Cesar PA-C Procedure: CT ABDOMEN PELVIS W/O Order Number(s): [id number] Ordered Date: 09/25/17 Ordered Time: 12 EXAMINATION: CT OF THE ABDOMEN AND PELVIS WITHOUT CONTRAST 09/25/2017 10:02 am TECHNIQUE: CT of the abdomen and pelvis was performed without the administration of intravenous contrast. Multiplanar reformatted images are provided for review. Dose modulation, iterative reconstruction, and/or weight based adjustment of the mA/kV was utilized to reduce the radiation dose to as low as reasonably achievable. COMPARISON: 08/14/2017 HISTORY: abd pain FINDINGS: Lower Chest: There is resolution of right pleural effusion. Organs: The liver, spleen, pancreas, gallbladder, adrenal glands, kidneys within normal limits. GI/Bowel: There is mild fluid distention of the colon likely related to diarrhea. The appendix is seen within normal limits. There are no dilated small bowel loops. Pelvis: No free fluid evident in the pelvis. Peritoneum/Retroperitoneum: No evidence for retroperitoneal adenopathy. Bones/Soft Tissues: There is 1 cm anterolisthesis L5 on S1 related to pars defect with associated marked degenerative disc change. Schmorl's node versus old compression T11. IMPRESSION: Mild fluid distention of the colon suggests gastroenteritis and diarrhea. No evidence for stone involving the kidneys or ureters. 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 Dictated By: Min Lynn MD Dictated Date/Time: 09/25/17 1016 Signed By: Min Lynn MD Signed Date/Time: 09/25/17 1024 Transcribed Date/Time: 09/25/17 1020 Normal [facility] LIPASEon 09-25-2017 Lipase 28 U/L Normal 23-300 [facility] Comment on above: Performed By: #### C REAT-EGFR, SEC CALL ####Main Lab - [id number] [place] [address] MICROCYTOSISon 09-25-2017 MICROCYTOSIS 1+ Abnormal [facility] Comment on above: Order Comment: @08/30 04/15 0944: SMUDGE CELLS added. RFLXG = MORPH.@09/25/17 0944: GIANT PLATELETS added. RFLXG = MORPH.@09/25/17 0944: POLYCHROM added. RFLXG = MORPH.@09/25/17 0944: HYPERCHROM added. RFLXG = MORPH.@09/25/17 0944: HYPOCHROM added. RFLXG = MORPH.@09/25/17 0944: POIK added. RFLXG = MORPH.@09/25/17 0944: BASO STIP added. RFLXG = MORPH.@09/25/17 0944: ANISO added. RFLXG = MORPH.@09/25/17 0944: MICRO added. RFLXG = MORPH.@09/25/17 0944: MACRO added. RFLXG = MORPH.@09/25/17943: SPHERE added. RFLXG = MORPH.@09/25/17943: ELLIPTO added. RFLXG = MORPH.@09/25/17943: SIDEROCYTE added. RFLXG = MORPH.@09/25/17943: ADARSH BODIES added. RFLXG = MORPH.@09/25/17943: PELGER-HUET added. RFLXG = MORPH.@09/25/17943: ANA LILIA BODIES added. RFLXG = MORPH.@09/25/17943: SICKLE added. RFLXG = MORPH.@09/25/17943: TARGET added. RFLXG = MORPH.@09/25/17943: TEAR added. RFLXG = MORPH.@09/25/17943: OVAL added. RFLXG = MORPH.@09/25/17943: STOMATO added. RFLXG = MORPH.@09/25/17943: HELMET CELLS added. RFLXG = MORPH.@09/25/17943: HJ BODIES added. RFLXG = MORPH.@09/25/17943: TOXIC GRAN added. RFLXG = MORPH.@09/25/17943: TOXIC VAC added. RFLXG = MORPH.@09/25/17943: DOHLE BODIES added. RFLXG = MORPH.@09/25/17943: NIMISHA CELLS added. RFLXG = MORPH.@09/25/17943: CRENATED RBC added. RFLXG = MORPH.@09/25/17943: ACANTHO added. RFLXG = MORPH.@09/25/17943: ROLY RODS added. RFLXG = MORPH.@09/25/17943: ROULEAUX added. RFLXG = MORPH.@09/25/17943: SCHISTO added. RFLXG = MORPH.@09/25/17943: PARASITES added. RFLXG = MORPH. Performed By: #### C REAT-EGFR, SEC CALL ####Main Lab - [id number] [address] POIKILOCYTOSISon 09-25-2017 POIKILOCYTOSIS 1+ Abnormal [place] rn [facility] Comment on above: Order Comment: @08/30: SMUDGE CELLS added. RFLXG = MORPH.@09/25/17943: GIANT PLATELETS added. RFLXG = MORPH.@09/25/17943: POLYCHROM added. RFLXG = MORPH.@09/25/17943: HYPERCHROM added. RFLXG = MORPH.@09/25/17943: HYPOCHROM added. RFLXG = MORPH.@09/25/17943: POIK added. RFLXG = MORPH.@09/25/17943: BASO STIP added. RFLXG = MORPH.@09/25/17943: ANISO added. RFLXG = MORPH.@09/25/17943: MICRO added. RFLXG = MORPH.@09/25/17943: MACRO added. RFLXG = MORPH.@09/25/17943: SPHERE added. RFLXG = MORPH.@09/25/17943: ELLIPTO added. RFLXG = MORPH.@09/25/17943: SIDEROCYTE added. RFLXG = MORPH.@09/25/17943: ADARSH BODIES added. RFLXG = MORPH.@09/25/17943: PELGER-HUET added. RFLXG = MORPH.@09/25/17943: ANA LILIA BODIES added. RFLXG = MORPH.@09/25/17943: SICKLE added. RFLXG = MORPH.@09/25/17943: TARGET added. RFLXG = MORPH.@09/25/17943: TEAR added. RFLXG = MORPH.@09/25/17943: OVAL added. RFLXG = MORPH.@09/25/17943: STOMATO added. RFLXG = MORPH.@09/25/17943: HELMET CELLS added. RFLXG = MORPH.@09/25/17943: HJ BODIES added. RFLXG = MORPH.@09/25/17943: TOXIC GRAN added. RFLXG = MORPH.@09/25/17943: TOXIC VAC added. RFLXG = MORPH.@09/25/17 0944: DOHLE BODIES added. RFLXG = MORPH.@09/25/17 0944: NIMISHA CELLS added. RFLXG = MORPH.@09/25/17 0944: CRENATED RBC added. RFLXG = MORPH.@09/25/17 0944: ACANTHO added. RFLXG = MORPH.@09/25/17 0944: ROLY RODS added. RFLXG = MORPH.@09/25/17 0944: ROULEAUX added. RFLXG = MORPH.@09/25/17 0944: SCHISTO added. RFLXG = MORPH.@09/25/17 0944: PARASITES added. RFLXG = MORPH. Performed By: #### C REAT-EGFR, SEC CALL ####Main Lab - [id number] [place], [place] [address] ECHO BRETHA(TRANSESOPHAGEAL)on 09-12-2017 ECHO BERTHA(TRANSESOPHAGEAL) [facility] [address] [place] [id number] Cardiovascular Imaging Report : [id number] Signed Name: BLAS LUJAN MRUN: [id number] : 1960 Loc: CCL Age / Sex: 57 / F ADM Status: REG [facility] ADM Date: 09/12/17 Room/Bed: Ordering Physician: Shea Cesar MD Procedure: ECHO BERTHA(TRANSESOPHAGEAL) Order Number(s): [id number] Ordered Date: 09/12/17 Ordered Time: 921 SEOSYNCVPROD [id number].PDF Transesophageal Echo Report Ht (in): 63 Wt (lb): 127 BSA: 1.6 Stay Type: O Technologist: Tammy Juarez RDCS Nurse: Ashley Cabral RN Nurse: Bridgett Washington BSN, Indications: SEVERE MR BP: 114 / 71 HR: 85 Rhythm: Sinus. Technical Quality: Good Medications The posterior pharynx was sprayed with Cetacaine spray. The patient was medicated with 8 mcg of IV Fentanyl and 150 mgs of IV Versed. Complications None. Proc. Components The patient was brought to the BERTHA examination room in a fasting state after obtaining an informed consent. The BERTHA probe was passed into the posterior pharynx , mid-esophagus, distal esophagus, and gastric fundus. BERTHA was performed at multiple levels. The patient tolerated the procedure well and there were no complications. The patient was transferred to the floor in satisfactory condition. CONCLUSIONS Left ventricular ejection fraction is estimated at 55 %. Moderately increased left atrial size. Severe mitral valve prolapse. Prolapse of the anterior mitral valve leaflet. Prolapse of the posterior mitral valve leaflet. Mild tricuspid valve regurgitation. Will refer to CTS for MVR FINDINGS Left Ventricle Normal left ventricular cavity size. Normal left ventricular wall thickness. Normal left ventricular systolic function. Left ventricular ejection fraction is estimated at 55 %. Right Ventricle Normal right ventricular size. Normal right ventricular systolic function. Right Atrium Normal right atrial size. Left Atrium Moderately increased left atrial size. LA Appendage Normal left atrial appendage. No thrombus visualized in the left atrial appendage. IA Septum Normal interatrial septum. No patent foramen ovale. Mitral Valve Severe mitral valve prolapse. Prolapse of the anterior mitral valve leaflet. Prolapse of the posterior mitral valve leaflet. No mitral valve stenosis. Aortic Valve Structurally normal trileaflet aortic valve. No aortic valve stenosis. No aortic valve regurgitation. Tricuspid Valve Structurally normal tricuspid valve. No tricuspid valve stenosis. Mild tricuspid valve regurgitation. Pulmonic Valve Structurally normal pulmonic valve. No pulmonary valve stenosis. No pulmonary valve regurgitation. Pericardium No pericardial effusion. Aorta Normal aorta. Shea Cesar MD (Electronically Signed) Final Date: 12 September 2017 18:07 Dictated By: Shea Cesar MD Dictated Date/Time: 09/12/17 1043 Signed By: Shea Cesar MD, MD Signed Date/Time: 09/12/17 1807 Transcribed Date/Time: 09/12/17 1043 Normal [facility] TEEon 09-12-2017 BERTHA Ordered by an unspec ified provider. Invalid Interpretation Code [employer] Work Phone: Basic Metabolic Panelon 12-2 Anion gap 15 mmol/L Normal [facility] Comment on above: Result Comment: Rene dash entered after finding on pending list. Performed By: #### B MP3, MG3, TSH4, TROPN ####[address] [place] [address] CO2 18 mmol/L Low 22-30 [facility] Comment on above: Performed By: #### B MP3, MG3, TSH4, TROPN ####[address] [place] [address] Troponin Ion 08-26-2017 Troponin I.cardiac mass conc 0.018 ng/mL Normal 0.000-0.03 4 [facility] Comment on above: Result Comment: 0.04 6 - 0.400 = Indeterminate> 0.400 = Consider Myocardial Injury Performed By: #### T ROPN, HEMOG, LFT3, ACET4 ####[place] [address] Acetaminophenon 08-25-2017 Acetaminophen mass conc <10.0 Normal 10.0-30.0 [facility] Comment on above: Performed By: #### T ROPN, HEMOG, LFT3, ACET4 ####[address] [place] [address] Basic Metabolic Panelon 07-30 Calcium 8.4 mg/dL Normal 8.4-10.2 [facility] Comment on above: Performed By: #### T ROPN, HEMOG, LFT3, ACET4 ####[place] [address] Glucose mass conc 78 mg/dL Normal 70-100 [facility] Comment on above: Performed By: #### T ROPN, HEMOG, LFT3, ACET4 ####[address] [place] [address] Urea nitrogen 17 mg/dL Normal 7-20 [facility] Comment on above: Performed By: #### T ROPN, HEMOG, LFT3, ACET4 ####[address] [place] [address] Anion gap 10 mmol/L Normal [facility] Comment on above: Performed By: #### T ROPN, HEMOG, LFT3, ACET4 ####[address] [place] [address] CO2 22 mmol/L Normal 22-30 [facility] Comment on above: Performed By: #### T PAYTON, HEMOG, LFT3, ACET4 ####[address] [place] [address] Creatinine 0.70 mg/dL Normal 0.52-1.25 [facility] Comment on above: Performed By: #### T PAYTON, HEMOG, LFT3, ACET4 ####[address] [address] [place] [address] eGFR (black) mL/min/{1.73_m2} Normal >60 [facility] Comment on above: Performed By: #### T PAYTON, HEMOG, LFT3, ACET4 ####[address] [address] [place] [address] eGFR (non-black) mL/min/{1.73_m2} Normal >60 [facility] Comment on above: Result Comment: Sour ce- MDRD equation with creatinine calibration to IDMS(NKDEP)eGFR not recommended for drug dose adjustment Performed By: #### T PAYTON HEMOG, LFT3, ACET4 ####[address] [place] [address] Chloride 103 mmol/L Normal 98-107 [facility] Comment on above: Performed By: #### T PAYTON, HEMOG, LFT3, ACET4 ####[place] [address] Potassium molar conc 4.1 mmol/L Normal 3.5-5.1 [facility] Comment on above: Performed By: #### T PAYTON HEMOG, LFT3, ACET4 ####[address] [place] [address] Sodium 135 mmol/L Low 137-145 [facility] Comment on above: Performed By: #### T PAYTON, HEMOG, LFT3, ACET4 ####[place] [address] Ethanol Serum/Plasmaon 08-25 Ethanol-Serum/Plasma <0.010 Normal 0.000-0 .01 0 [facility] Comment on above: Result Comment: NOTE : This result is for medical treatment only.Analysis performed using non-forensic procedures. Performed By: #### T PAYTON HEMOG, LFT3, ACET4 ####[place] [address] Ferritinon 08-25-2017 Ferritin 14 ng/mL Normal 8-252 [facility] Comment on above: Performed By: #### T PAYTON, HEMOG, LFT3, ACET4 ####[place] [address] Hemogram w/ Autodiffon 08-25 WBC (Leukocytes) 6.4 10*3/uL Normal 3.6-10.7 [facility] Comment on above: Performed By: #### T PAYTON HEMOG, LFT3, ACET4 ####[place] [address] Erythrocyte distribution width Auto Ratio (RBC) 26.8 % High 11.5-14.5 [facility] Comment on above: Performed By: #### T PAYTON HEMOG, LFT3, ACET4 ####[place] [address] Erythrocytes (RBC) 4.59 10*6/uL Normal 3.80-5.20 [facility] Comment on above: Performed By: #### T PAYTON HEMOG, LFT3, ACET4 ####[place] [address] Hematocrit (HCT) 29.0 % Low 35.0-47.0 [facility] Comment on above: Performed By: #### T PAYTON, HEMOG, LFT3, ACET4 ####[place] [address] Hemoglobin mass conc (Bld) 9.0 g/dL Low 11.7-16.0 [facility] Comment on above: Performed By: #### T PAYTON, HEMOG, LFT3, ACET4 ####[address] [address] MCH 19.6 pg Low 26.0-34.0 [facility] Comment on above: Performed By: #### T PAYTON, HEMOG, LFT3, ACET4 ####[address] [address] [facility] mass conc (RBC) 31.0 % Low 32.0-36.0 [facility] Comment on above: Performed By: #### T PAYTON, HEMOG, LFT3, ACET4 ####[address] [address] MCV 63.3 fL Low 79.0-98.0 [facility] Comment on above: Performed By: #### T PAYTON, HEMOG, LFT3, ACET4 ####[address] [address] Platelet mean volume (PMV) 9.6 fL Normal 7.4-10.4 [facility] Comment on above: Performed By: #### T PAYTON, HEMOG, LFT3, ACET4 ####[address] [address] Platelets 276 10*3/uL Normal 140-440 [facility] Comment on above: Performed By: #### T PAYTON, HEMOG, LFT3, ACET4 ####[address] [address] Hepatic Functionon 7 Alanine aminotransferase (ALT) 68 U/L Normal 13-69 [facility] Comment on above: Performed By: #### T PAYTON, HEMOG, LFT3, ACET4 ####[address] [address] Albumin 3.4 g/dL Low 3.5-5.0 [facility] Comment on above: Performed By: #### T ROPN, HEMOG, LFT3, ACET4 ####[address] [address] Alkaline phosphatase (ALP) 86 U/L Normal 38-126 [facility] Comment on above: Performed By: #### T ROPN, HEMOG, LFT3, ACET4 ####[address] [address] Aspartate aminotransferase (AST) 98 U/L High 15-46 [facility] Comment on above: Performed By: #### T ROPN, HEMOG, LFT3, ACET4 ####[address] [place] [address] Protein 6.1 g/dL Low 6.3-8.2 [facility] Comment on above: Performed By: #### T ROPN, HEMOG, LFT3, ACET4 ####[address] [place] [address] Bilirubin (direct) 0.0 mg/dL Normal 0.0-0.3 [facility] Comment on above: Performed By: #### T ROPN, HEMOG, LFT3, ACET4 ####[address] [place] [address] Bilirubin (total) 1.1 mg/dL Normal 0.2-1.3 [facility] Comment on above: Performed By: #### T ROPN, HEMOG, LFT3, ACET4 ####[place] [address] Ironon 08-25-2017 Saturation 6 % Low 15-50 [facility] Comment on above: Performed By: #### T ROPN, HEMOG, LFT3, ACET4 ####[place] [address] Total Iron Binding Cap. 419 ug/dL Normal 261-497 [facility] Comment on above: Performed By: #### T ROPN, HEMOG, LFT3, ACET4 ####[place] [address] Iron, Total 27 ug/dL Low 37-170 [facility] Comment on above: Performed By: #### T ROPN, HEMOG, LFT3, ACET4 ####[address] [address] Manual Diffon 08-25-2017 Abs Baso Cnt 0.0 10*3/uL Normal 0.0-0.2 [facility] Comment on above: Performed By: #### T ROPN, HEMOG, LFT3, ACET4 ####[address] [place] [address] Anisocytosis presence Slight Normal [facility] Comment on above: Performed By: #### T ROPN, HEMOG, LFT3, ACET4 ####[place] [address] Eosinophils 0.0 10*3/uL Normal 0.0-0.5 [facility] Comment on above: Performed By: #### T ROPN, HEMOG, LFT3, ACET4 ####[place] [address] Erythrocyte morphology ABNORMAL Normal [facility] Comment on above: Performed By: #### T ROPN, HEMOG, LFT3, ACET4 ####[place] [address] Erythrocytes (RBC) 1 /100{WBCs} High -1-0 [facility] Comment on above: Result Comment: Newb orn (<60 days) 1-10Adult <1 Performed By: #### T ROPN, HEMOG, LFT3, ACET4 ####[place] [address] Hypochromia Slight Normal [facility] Comment on above: Performed By: #### T ROPN, HEMOG, LFT3, ACET4 ####[place] [address] Lymphocytes 1.8 10*3/uL Normal 1.1-4.5 [facility] Comment on above: Performed By: #### T ROPN, HEMOG, LFT3, ACET4 ####[place] [address] Lymphocytes/100 leukocytes 28 % Normal [facility] Comment on above: Performed By: #### T ROPN, HEMOG, LFT3, ACET4 ####[place] [address] Macrocytosis Slight Normal [facility] Comment on above: Performed By: #### T ROPN, HEMOG, LFT3, ACET4 ####[place] [address] Monocytes 0.3 10*3/uL Normal 0.2-1.1 [facility] Comment on above: Performed By: #### T ROPN, HEMOG, LFT3, ACET4 ####[address] [place] [address] Monocytes/100 leukocytes 4 % Normal [facility] Comment on above: Performed By: #### T ROPMonet, HEMOG, LFT3, ACET4 ####[address] [place] [address] Neutrophils 4.4 10*3/uL Normal 2.2-8.2 [facility] Comment on above: Performed By: #### T ROPN, HEMOG, LFT3, ACET4 ####[address] [place] [address] Polychromasia Slight Normal [facility] Comment on above: Performed By: #### T ROPMonet, HEMOG, LFT3, ACET4 ####[address] [address] Seg Neutrophils 68 % Normal [facility] Comment on above: Performed By: #### T ROPMonet, HEMOG, LFT3, ACET4 ####[address] [place] [address] Bands 0 % Normal [facility] Comment on above: Performed By: #### T ROPMonet, HEMOG, LFT3, ACET4 ####[address] [address] Basophils/100 WBC Auto (Bld) 0 % Normal [facility] Comment on above: Performed By: #### T PAYTON, HEMOG, LFT3, ACET4 ####[address] [place] [address] Cells counted 100 Normal [facility] Comment on above: Performed By: #### T ROPN, HEMOG, LFT3, ACET4 ####[address] [place] [address] Eosinophils/100 leukocytes 0 % Normal [facility] Comment on above: Performed By: #### T ROPN, HEMOG, LFT3, ACET4 ####[address] [place] [address] NT pro BNPon 08-25-2017 BNP 78168 pg/mL High 0-125 [facility] Comment on above: Performed By: #### T ROPN, HEMOG, LFT3, ACET4 ####[place] [address] Vitamin B12on 08-25-2017 Cobalamins (Vitamin B12) pg/mL High 239-931 [facility] Comment on above: Performed By: #### T ROPN, HEMOG, LFT3, ACET4 ####[place] [address] Basic Metabolic Panelon 07-30 Calcium 8.4 mg/dL Normal 8.4-10.2 [facility] Comment on above: Performed By: #### B MP3, MG3, TSH4, TROPN ####[place] [address] Glucose mass conc 113 mg/dL High 70-100 [facility] Comment on above: Performed By: #### B MP3, MG3, TSH4, TROPN ####[place] [address] Urea nitrogen 12 mg/dL Normal 7-20 [facility] Comment on above: Performed By: #### B MP3, MG3, TSH4, TROPN ####[place] [address] Creatinine 0.77 mg/dL Normal 0.52-1.25 [facility] Comment on above: Performed By: #### B MP3, MG3, TSH4, TROPN ####[place] [address] eGFR (black) mL/min/{1.73_m2} Normal >60 [facility] Comment on above: Performed By: #### B MP3, MG3, TSH4, TROPN ####[place] [address] eGFR (non-black) mL/min/{1.73_m2} Normal >60 [facility] Comment on above: Result Comment: Sour ce- MDRD equation with creatinine calibration to IDMS(NKDEP)eGFR not recommended for drug dose adjustment Performed By: #### B MP3, MG3, TSH4, TROPN ####[address] [place] [address] Potassium molar conc 3.7 mmol/L Normal 3.5-5.1 [facility] Comment on above: Performed By: #### B MP3, MG3, TSH4, TROPN ####[address] [place] [address] Sodium 136 mmol/L Low 137-145 [facility] Comment on above: Performed By: #### B MP3, MG3, TSH4, TROPN ####[address] [address] Chloride 103 mmol/L Normal 98-107 [facility] Comment on above: Performed By: #### B MP3, MG3, TSH4, TROPN ####[place] [address] Hemogram w/ Autodiffon 08-24 Abs Baso Cnt 0.0 10*3/uL Normal 0.0-0.2 [facility] Comment on above: Performed By: #### T PAYTON, HEMOG, LFT3, ACET4 ####[place] [address] Basophils/100 WBC Auto (Bld) 0.0 % Normal [facility] Comment on above: Performed By: #### T PAYTON, HEMOG, LFT3, ACET4 ####[address] [place] [address] Eosinophils 0.1 10*3/uL Normal 0.0-0.5 [facility] Comment on above: Performed By: #### T PAYTON, HEMOG, LFT3, ACET4 ####[address] [address] Eosinophils/100 leukocytes 0.6 % Normal [facility] Comment on above: Performed By: #### T PAYTON, HEMOG, LFT3, ACET4 ####[address] [place] [address] Erythrocyte distribution width Auto Ratio (RBC) 27.3 % High 11.5-14.5 [facility] Comment on above: Performed By: #### T PAYTON, HEMOG, LFT3, ACET4 ####[place] [address] Erythrocytes (RBC) 5.00 10*6/uL Normal 3.80-5.20 [facility] Comment on above: Performed By: #### T PAYTON, HEMOG, LFT3, ACET4 ####[address] [address] Granulocytes/100 WBC (Bld) 85.8 % Normal [facility] Comment on above: Performed By: #### T PAYTON HEMOG, LFT3, ACET4 ####[address] [address] Hematocrit (HCT) 32.4 % Low 35.0-47.0 [facility] Comment on above: Performed By: #### T PAYTON HEMOG, LFT3, ACET4 ####[place] [address] Hemoglobin mass conc (Bld) 9.9 g/dL Low 11.7-16.0 [facility] Comment on above: Performed By: #### T PAYTON, HEMOG, LFT3, ACET4 ####[address] [address] Lymphocytes 0.9 10*3/uL Low 1.0-4.3 [facility] Comment on above: Performed By: #### T PAYTON, HEMOG, LFT3, ACET4 ####[address] [address] Lymphocytes/100 leukocytes 9.7 % Normal [facility] Comment on above: Performed By: #### T PAYTON, HEMOG, LFT3, ACET4 ####[address] [address] MCH 19.8 pg Low 26.0-34.0 [facility] Comment on above: Performed By: #### T PAYTON, HEMOG, LFT3, ACET4 ####[address] [address] MCHC mass conc (RBC) 30.5 % Low 32.0-36.0 [facility] Comment on above: Performed By: #### T SHIVA CAIN, LFT3, ACET4 ####[address] [address] MCV 64.8 fL Low 79.0-98.0 [facility] Comment on above: Performed By: #### T PAYTON HEMOG, LFT3, ACET4 ####[place] [address] Monocytes 0.4 10*3/uL Normal 0.0-0.8 [facility] Comment on above: Performed By: #### Keshawn CAIN HEMOG, LFT3, ACET4 ####[place] [address] Monocytes/100 leukocytes 3.9 % Normal [facility] Comment on above: Performed By: #### SHIVA TORRES, LFT3, ACET4 ####[place] [address] Neutrophils 8.0 10*3/uL High 1.8-7.0 [facility] Comment on above: Performed By: #### HAYLEY TORRESOG, LFT3, ACET4 ####[place] [address] Platelet mean volume (PMV) 8.1 fL Normal 7.4-10.4 [facility] Comment on above: Performed By: #### Keshawn CAIN HEMOG, LFT3, ACET4 ####[address] [address] Platelets 289 10*3/uL Normal 140-440 [facility] Comment on above: Performed By: #### Keshawn CAIN HEMOG, LFT3, ACET4 ####[address] [address] WBC (Leukocytes) 9.3 10*3/uL Normal 3.6-10.7 [facility] Comment on above: Performed By: #### Keshawn CAIN HEMOG, LFT3, ACET4 ####[place] [address] Magnesiumon 08-24-2017 Magnesium 1.7 mg/dL Normal 1.6-2.3 [facility] Comment on above: Performed By: #### T ROPN, HEMOG, LFT3, ACET4 ####[place] [address] Procalcitoninon 08-24-2017 Procalcitonin <0.10 Normal <0.10 [facility] Comment on above: Performed By: #### T ROPN, HEMOG, LFT3, ACET4 ####[place] [address] Interpretation See Below Normal [facility] Comment on above: Result Comment: PCT <0.50 = Low risk of severe sepsis and/or septic shock.PCT >2.00 = High risk of severe sepsis and/or septic shock. Performed By: #### T ROPMonet, HEMOG, LFT3, ACET4 ####[place] [address] Thyroid Stim. Hormoneon 07-30 Thyroid Stim. Hormone 1.410 uU/mL Normal 0.465-4.68 0 [facility] Comment on above: Performed By: #### T ROPMonet, HEMOG, LFT3, ACET4 ####[place] [address] Acetaminophenon 08-23-2017 Acetaminophen mass conc <10.0 Normal 10.0-30.0 [facility] Comment on above: Performed By: #### T ROPN, HEMOG, LFT3, ACET4 ####[place] [address] CR Chest PA/LATon 08-23-2017 CR Chest PA/LAT Patient Name: BLAS ABARCA Diagnostic Radiology Exam Date/Time 08/23/2017 12:10:23 EST Exam CR Chest PA/LAT Ordering Physician KATHLEEN CARMONA ROBERT Accession Number [id number] CPT4 Codes 84219 () Reason For Exam chest pain, shortness of breath Report Clinical indications: Chest pain and shortness of breath FINDINGS: Two views are submitted and compared with a prior study from 11/17/2007. The cardiomediastinal silhouette may be slightly enlarged, accounting for some differences in patient positioning and beam angle. There is slight interstitial prominence which is suggestive of pulmonary venous congestion. There is no clear-cut evidence of lobar infiltrate, effusion or pneumothorax. Osseous and soft tissue structures remain intact. IMPRESSION: Findings suggestive of mild cardiomegaly and slight pulmonary venous congestion. Report Dictated on Final Dictated: 08/23/2017 12:17 pm Dictating Physician: MD TAPIA RUSSELL Signed Date and Time: 08/23/2017 12:19 pm Signed by: MD TAPIA RUSSELL Transcribed Date and Time: 08/23/2017 12:17 Normal [facility] Chem and Lactic Acid Panel, POCon 08-23-2017 Anion gap 9 mmol/L Normal 7-16 [facility] Comment on above: Performed By: #### C LAPC ####[address] [address] [place] [address] Chloride 105 mmol/L Normal 98-107 [facility] Comment on above: Performed By: #### C LAPC ####[address] [address] [place] [address] CO2 19 mmol/L Low 22-30 [facility] Comment on above: Performed By: #### C LAPC ####[id number] [place] [address] Creatinine 0.39 mg/dL Low 0.52-1.25 [facility] Comment on above: Performed By: #### C LAPC ####[address] [place] [address] eGFR (non-black) mL/min/{1.73_m2} Normal -1-61 [facility] Comment on above: Performed By: #### C LAPC ####[address] [place], [place] [address] Glucose mass conc 107 mg/dL High 70-100 [facility] Comment on above: Performed By: #### C LAPC ####[address] [place] [address] Ionized Ca,Measured 4.4 mg/dL Normal 4.3-5.2 [facility] Comment on above: Result Comment: Perf ormed by KATERIN ID: [id number] Performed By: #### C LAPC ####[address] [place] [address] Lactic Acid, POC 0.97 mmol/L Normal 0.59-1.39 [facility] Comment on above: Performed By: #### C LAPC ####[address] [address] Potassium molar conc 3.5 mmol/L Normal 3.5-5.1 [facility] Comment on above: Performed By: #### C LAPC ####[address] [address] Sodium 132 mmol/L Low 133-145 [facility] Comment on above: Performed By: #### C LAPC ####[address] [address] Hemogramon 08-23-2017 Erythrocyte distribution width Auto Ratio (RBC) 27.1 % High 11.5-14.5 [facility] Comment on above: Performed By: #### T PAYTON, HEMOG, LFT3, ACET4 ####[address] [address] Erythrocytes (RBC) 5.51 10*6/uL High 3.80-5.20 [facility] Comment on above: Performed By: #### T PAYTON, HEMOG, LFT3, ACET4 ####[address] [address] Hematocrit (HCT) 35.5 % Normal 35.0-47.0 [facility] Comment on above: Performed By: #### T MARIANON, HEMOG, LFT3, ACET4 ####[address] [address] Hemoglobin mass conc (Bld) 10.8 g/dL Low 11.7-16.0 [facility] Comment on above: Performed By: #### T ROPN, HEMOG, LFT3, ACET4 ####[place] [address] MCH 19.7 pg Low 26.0-34.0 [facility] Comment on above: Performed By: #### T ROPN, HEMOG, LFT3, ACET4 ####[place] [address] MCHC mass conc (RBC) 30.5 % Low 32.0-36.0 [facility] Comment on above: Performed By: #### T ROPN, HEMOG, LFT3, ACET4 ####[place] [address] MCV 64.4 fL Low 79.0-98.0 [facility] Comment on above: Performed By: #### T ROPN, HEMOG, LFT3, ACET4 ####[place] [address] Platelet mean volume (PMV) 8.4 fL Normal 7.4-10.4 [facility] Comment on above: Performed By: #### T PAYTON, HEMOG, LFT3, ACET4 ####[place] [address] Platelets 288 10*3/uL Normal 140-440 [facility] Comment on above: Performed By: #### T ROPN, HEMOG, LFT3, ACET4 ####[place] [address] WBC (Leukocytes) 9.0 10*3/uL Normal 3.6-10.7 [facility] Comment on above: Performed By: #### T ROPN, HEMOG, LFT3, ACET4 ####[place] [address] Hepatic Functionon 7 Alanine aminotransferase (ALT) 120 U/L High 1369 [facility] Comment on above: Performed By: #### T ROPN, HEMOG, LFT3, ACET4 ####[place] [facility] [place] [address] Alkaline phosphatase (ALP) 106 U/L Normal 38-126 [facility] Comment on above: Performed By: #### T ROPN, HEMOG, LFT3, ACET4 ####[place] [address] [place] [address] Aspartate aminotransferase (AST) 91 U/L High 15-46 [facility] Comment on above: Result Comment: Slig htly hemolysed, interpret with caution. Performed By: #### T ROPN, HEMOG, LFT3, ACET4 ####[address] [address] [place] [address] Bilirubin (direct) 0.0 mg/dL Normal 0.0-0.3 [facility] Comment on above: Result Comment: Slig htly hemolysed, interpret with caution. Performed By: #### T ROPN, HEMOG, LFT3, ACET4 ####[address] [address] [place] [address] Bilirubin (total) 1.0 mg/dL Normal 0.2-1.3 [facility] Comment on above: Performed By: #### T ROPN, HEMOG, LFT3, ACET4 ####[address] [address] [place] [address] Protein 6.9 g/dL Normal 6.3-8.2 [facility] Comment on above: Performed By: #### T ROPN, HEMOG, LFT3, ACET4 ####[address] [address] [place] [address] Albumin 4.1 g/dL Normal 3.5-5.0 [facility] Comment on above: Performed By: #### T ROPN, HEMOG, LFT3, ACET4 ####[address] [address] [place] [address] Influenza/RSV by PCRon 08-23 Influenza/RSV by PCR Specimen Source Comment:Nasal [facility] Patient name: BLAS LUJAN ArvinRJaiN.: [id number] : 1960 Age: 57 Sex: F Ord. Physician: TOBIAS MAURER III Location: [id number] Copy to: MIGUEL MAURER IIIT Acacia Yu. Date: 08/23/17 MICROBIOLOGYORDER#: [id number] COLLECTED: 08/23/17 19:02SOURCE: Respiratory -Nasopharyngeal RECEIVED: 08/23/17 19:22 OE C O M M E N T S Specime n Source Comment:NasalFlu A PCR FINAL 08/23/17 21:POSITIVEFlu B PCR FINAL 08/23/17 21:NEGATIVERSV PCR FINAL 08/23/17 21:NEGATIVEMethod : FDA-Approved PCR Assay by [employer] Normal [facility] Comment on above: Performed By: #### I NFPC ####[place] [address] Troponin Ion 08-23-2017 Troponin I.cardiac mass conc 0.013 ng/mL Normal 0.000-0.03 4 [facility] Comment on above: Result Comment: 0.04 6 - 0.400 = Indeterminate> 0.400 = Consider Myocardial Injury Performed By: #### T ROPN, HEMOG, LFT3, ACET4 ####[place] [address] Urinalysis,Macroon 7 Bilirubin (direct) Negative Normal Negative [facility] Comment on above: Performed By: #### U AMAC, UAMIC ####[place] [address] Ketone,Urine Negative Normal Negative [facility] Comment on above: Performed By: #### U AMAC, UAMIC ####[place] [address] Occult Blood,Ur Negative Normal Negative [facility] Comment on above: Performed By: #### U AMAC, UAMIC ####[place] [address] Specific [place],Urine 1.005 Normal 1.005-1.03 0 [facility] Comment on above: Performed By: #### U AMAC, UAMIC ####[address] [place] [address] Total Protein,Urine Negative Normal Negative [facility] Comment on above: Performed By: #### U AMAC, UAMIC ####[address] [address] [place] [address] Urine, appearance clear Normal Clear [facility] Comment on above: Performed By: #### U AMAC, UAMIC ####[address] [address] [place] [address] Urine, color yellow Normal Lt. Yellow [facility] Comment on above: Performed By: #### U AMAC, UAMIC ####[address] [place] [address] Urine, glucose presence NORM Normal Negative [facility] Comment on above: Performed By: #### U AMAC, UAMIC ####[address] [address] [place] [address] Urine, nitrite presence Negative Normal Negative [facility] Comment on above: Performed By: #### U AMAC, UAMIC ####[address] [place] [address] Urine, pH 7.0 [pH] Normal 5.0-8.0 [facility] Comment on above: Performed By: #### U AMAC, UAMIC ####[address] [place] [address] Urine, urobilinogen NORM Normal 0-1 [facility] Comment on above: Performed By: #### U AMAC, UAMIC ####[address] [place] [address] WBC (Leukocytes) 1+ Normal Negative [facility] Comment on above: Performed By: #### U AMAC, UAMIC ####[address] [place] [address] Urinalysis,Microscopicon Urine, bacteria in sediment Few (1-5) Normal Negative [facility] Comment on above: Performed By: #### U AMAC, UAMIC ####[place] [address] [address] Urine, epithelial cells in sediment 0-2 Normal 3-5 [facility] Comment on above: Performed By: #### U AMAC, UAMIC ####[place] [address] [place] [address] Urine, erythrocytes in sediment by area Negative Normal 0-2 [facility] Comment on above: Performed By: #### U AMAC, UAMIC ####[place] [address] [place] [address] Urine, leukocytes in sedmiment 0-2 Normal 0-5 [facility] Comment on above: Performed By: #### U AMDAVID, UAMIC ####[address] [place] [address] BLOOD CULTUREon 08-20-2017 Bacteria culture : No Growth after 5 days. Normal [facility] Comment on above: Performed By: #### C REAT-EGFR, SEC CALL ####Main Lab - [id number] [place], [place] [address] PLEURAL FLUID, CYTOLOGYon PLEURAL FLUID, CYTOLOGY SEE REF LAB REPORT Normal [facility] Comment on above: Performed By: #### C REAT-EGFR, SEC CALL ####Main Lab - [id number] [place], [place] [address] BODY FLUID AMYLASEon 017 Amylase 7 U/L Normal . [facility] Comment on above: Order Comment: Pleur al Fluid Result Comment: : Peritoneal : Pleural : Synovial :: : : :: : Transudate : Exudate : :: : : : :: 88-109 U/L : Not Estab. : Not Estab.: Not Estab. :: : : : : The method performance specifications have not been established for this test in body fluid. The test result should be integrated into the clinical context for interpretation.The method performance specifications have not beenestablished for this test in body fluid. The test resultshould be integrated into the clinical context forinterpretation.Performed at: [address] [id number] Director: Stefan Tyler PhD, Phone: [phone] Performed By: #### C REAT-EGFR, SEC CALL ####Main Lab - [id number] [place] [address] BODY FLUID LDHon 08-18-2017 BODY FLUID LDH 81 IU/L Normal . [place] [facility] Comment on above: Order Comment: Oneil ramos Fluid Result Comment: : Peritoneal : Pleural : Synovial : CSF :: : : : :: : Transudate: Exudate : : :: : : : : :: Not Estab. : <200 U/L : >200 U/L : <240 U/L : Not Estab.:: : : : _: The method performance specifications have not been established for this test in body fluid. The test result should be integrated into the clinical context for interpretation.The reference intervals and other method performancespecifications have not been established for this test. Thetest result should be integrated into the clinical contextfor interpretation. Performed By: #### C REAT-EGFR, SEC CALL ####Main Lab - [id number] [place], [place] [address] BODY FLUID PROTEINon 12- 017 BODY FLUID PROTEIN 1.7 g/dL Normal . [facility] Comment on above: Order Comment: Oneil al Fluid Result Comment: : Peritoneal : Pleural : Synovial :: : : :: : Transudate : Exudate : :: : : : :: Not Estab. : <3 g/dL : >3 g/dL : <2.5 g/dL :: : : : : The method performance specifications have not been established for this test in body fluid. The test result should be integrated into the clinical context for interpretation.The method performance specifications have not beenestablished for this test in body fluid. The test resultshould be integrated into the clinical context forinterpretation. Performed By: #### C WILFREDAT-EGFR, SEC CALL ####Main Lab - [id number] [place] [address] BODY FLUID TRIGLYCERIDESon 1 10-19-2016 BODY FLUID TRIGLYCERIDES 13 mg/dL Normal . [facility] Comment on above: Order Comment: Oneil ramos Fluid Result Comment: : Peritoneal : Pleural : Synovial :: : : :: : Transudate : Exudate : :: : : : :: Not Estab. : Not Estab. : Not Estab.: Not Estab. :: : : : : The method performance specifications have not been established for this test in body fluid. The test result should be integrated into the clinical context for interpretation.The reference intervals and other method performancespecifications have not been established for this test. Thetest result should be integrated into the clinical contextfor interpretation.Performed at: [address] [id number] Director: Stefan Tyler PhD, Phone: [phone] Performed By: #### C WILFREDAT-EGFR, SEC CALL ####Main Lab - [id number] [place], [place] [address] ACID FAST CULTUREon 08-17-20 17 ACID FAST CULTURE PLEURAL FLUID - RIGH T Mycobacterium XXX Ql Cult: Negative No acid fast bacilli isolated after 6 weeks. Performed at: [address] [id number] Manager Environmental Health And Safety: Stefan Tyler PhD, Phone: [phone] [facility] Comment on above: Performed By: #### C REAT-EGFR, SEC CALL ####Main Lab - [id number] [place], [place] [address] ACID FAST SMEARon 08-17-2017 ACID FAST SMEAR PLEURAL FLUID - RIGH T Acid fast Stn XXX: Negative Performed at: [address] [id number] Manager Environmental Health And Safety: Stefan Tyler PhD, Phone: [phone] [facility] Comment on above: Performed By: #### C REAT-EGFR, SEC CALL ####[facility] - [id number] [place], [place] [address] AFB SPECIMEN PROCESSINGon AFB SPECIMEN PROCESSING PLEURAL FLUID - RIGHT Specimen preparation XXX: Comment Straight Inoculation without Smear Normal [facility] Comment on above: Performed By: #### C REAT-EGFR, SEC CALL ####Main Lab - [id number] [place], [place] [address] ANISOCYTOSISon 08-17-2017 Anisocytosis presence 3+ Abnormal [facility] Comment on above: Order Comment: @07/30: SMUDGE CELLS added. RFLXG = MORPH.@08/17/1751: GIANT PLATELETS added. RFLXG = MORPH.@08/17/1751: POLYCHROM added. RFLXG = MORPH.@08/17/1751: HYPERCHROM added. RFLXG = MORPH.@08/17/1751: HYPOCHROM added. RFLXG = MORPH.@08/17/1751: POIK added. RFLXG = MORPH.@08/17/1751: BASO STIP added. RFLXG = MORPH.@08/17/1751: ANISO added. RFLXG = MORPH.@08/17/17650: MICRO added. RFLXG = MORPH.@08/17/17650: MACRO added. RFLXG = MORPH.@08/17/17650: SPHERE added. RFLXG = MORPH.@08/17/17650: ELLIPTO added. RFLXG = MORPH.@08/17/17650: SIDEROCYTE added. RFLXG = MORPH.@08/17/17650: ADARSH BODIES added. RFLXG = MORPH.@08/17/17650: PELGER-HUET added. RFLXG = MORPH.@08/17/17650: ANA LILIA BODIES added. RFLXG = MORPH.@08/17/17650: SICKLE added. RFLXG = MORPH.@08/17/17650: TARGET added. RFLXG = MORPH.@08/17/17650: TEAR added. RFLXG = MORPH.@08/17/17650: OVAL added. RFLXG = MORPH.@08/17/17650: STOMATO added. RFLXG = MORPH.@08/17/17650: HELMET CELLS added. RFLXG = MORPH.@08/17/17650: HJ BODIES added. RFLXG = MORPH.@08/17/17650: TOXIC GRAN added. RFLXG = MORPH.@08/17/17650: TOXIC VAC added. RFLXG = MORPH.@08/17/17650: DOHLE BODIES added. RFLXG = MORPH.@08/17/17650: NIMISHA CELLS added. RFLXG = MORPH.@08/17/17650: CRENATED RBC added. RFLXG = MORPH.@08/17/17650: ACANTHO added. RFLXG = MORPH.@08/17/17650: ROLY RODS added. RFLXG = MORPH.@08/17/17650: ROULEAUX added. RFLXG = MORPH.@08/17/17650: SCHISTO added. RFLXG = MORPH.@08/17/17650: PARASITES added. RFLXG = MORPH. Performed By: #### C REAT-EGFR, SEC CALL ####Main Lab - [id number] [place], [place] [address] BASIC METABOLIC PANELon 12-2 0-2017 Anion gap 13 mmol/L Normal 9-18 [facility] Comment on above: Performed By: #### C REAT-EGFR, SEC CALL ####Main Lab - [id number] [place], [place] [address] BUN (urea nitrogen) 17 mg/dL Normal 7-21 [facility] Comment on above: Performed By: #### C REAT-EGFR, SEC CALL ####Main Lab - [id number] [place] [address] BUN/Creatinine Ratio 23.9 Ratio Normal 5.0-42.0 [facility] Comment on above: Performed By: #### C REAT-EGFR, SEC CALL ####Main Lab - [id number] [place], [place] [address] Calcium 8.4 mg/dL Normal 8.4-10.2 [facility] Comment on above: Performed By: #### C REAT-EGFR, SEC CALL ####[facility] Lab - [id number] [place], [place] [address] Chloride 103 mmol/L Normal 98-107 [facility] Comment on above: Performed By: #### C REAT-EGFR, SEC CALL ####[facility] Lab - [id number] [place], [place] [address] CO2 21 mmol/L Low 22-31 [facility] Comment on above: Performed By: #### C REAT-EGFR, SEC CALL ####Main Lab - [id number] [place], [place] [address] Creatinine 71.45 mg/dL Normal [facility] Comment on above: Result Comment: COCK CROFT-GAULT FORMULA 1974 Performed By: #### C REAT-EGFR, SEC CALL ####Main Lab - [id number] [place] [address] Creatinine 0.71 mg/dL Low 0.80-1.30 [facility] Comment on above: Performed By: #### C REAT-EGFR, SEC CALL ####Main Lab - [id number] [place] [address] eGFR (non-black) mL/min/{1.73_m2} Normal So [facility] Comment on above: Performed By: #### C REAT-EGFR, SEC CALL ####Main Lab - [id number] [place], [place] [address] Glucose mass conc 94 mg/dL Normal 70-99 [facility] Comment on above: Result Comment: The glucose range is based on recommendations from theAmerican Diabetes Association for fasting blood glucoserange. Performed By: #### C REAT-EGFR, SEC CALL ####Main Lab - [id number] [place], [place] [address] Potassium molar conc 3.4 mmol/L Low 3.6-5.0 [facility] Comment on above: Performed By: #### C REAT-EGFR, SEC CALL ####Main Lab - [id number] [place], [place] [address] Sodium 134 mmol/L Low 137-145 [facility] Comment on above: Performed By: #### C REAT-EGFR, SEC CALL ####Main Lab - [id number] [place], [place] [address] Age 57 Years Normal [facility] Comment on above: Performed By: #### C REAT-EGFR, SEC CALL ####Main Lab - [id number] [place], [place] [address] CBC WITH AUTO DIFFon 08-17-2 017 Basophils Auto #/vol (Bld) 0.1 10 3/uL Normal 0.0-0.2 [facility] Comment on above: Order Comment: @07/30: SMUDGE CELLS added. RFLXG = MORPH.@08/17/17650: GIANT PLATELETS added. RFLXG = MORPH.@08/17/1751: POLYCHROM added. RFLXG = MORPH.@08/17/17650: HYPERCHROM added. RFLXG = MORPH.@08/17/1751: HYPOCHROM added. RFLXG = MORPH.@08/17/1751: POIK added. RFLXG = MORPH.@08/17/1751: BASO STIP added. RFLXG = MORPH.@08/17/1751: ANISO added. RFLXG = MORPH.@08/17/17650: MICRO added. RFLXG = MORPH.@08/17/17650: MACRO added. RFLXG = MORPH.@08/17/17650: SPHERE added. RFLXG = MORPH.@08/17/17650: ELLIPTO added. RFLXG = MORPH.@08/17/17650: SIDEROCYTE added. RFLXG = MORPH.@08/17/17650: ADARSH BODIES added. RFLXG = MORPH.@08/17/17650: PELGER-HUET added. RFLXG = MORPH.@08/17/17650: ANA LILIA BODIES added. RFLXG = MORPH.@08/17/17650: SICKLE added. RFLXG = MORPH.@08/17/17650: TARGET added. RFLXG = MORPH.@08/17/17650: TEAR added. RFLXG = MORPH.@08/17/17650: OVAL added. RFLXG = MORPH.@08/17/17650: STOMATO added. RFLXG = MORPH.@08/17/17650: HELMET CELLS added. RFLXG = MORPH.@08/17/17650: HJ BODIES added. RFLXG = MORPH.@08/17/17650: TOXIC GRAN added. RFLXG = MORPH.@08/17/17650: TOXIC VAC added. RFLXG = MORPH.@08/17/17650: DOHLE BODIES added. RFLXG = MORPH.@08/17/17650: NIMISHA CELLS added. RFLXG = MORPH.@08/17/17650: CRENATED RBC added. RFLXG = MORPH.@08/17/17650: ACANTHO added. RFLXG = MORPH.@08/17/17650: ROLY RODS added. RFLXG = MORPH.@08/17/17650: ROULEAUX added. RFLXG = MORPH.@08/17/17650: SCHISTO added. RFLXG = MORPH.@08/17/17650: PARASITES added. RFLXG = MORPH. Performed By: #### C REAT-EGFR, SEC CALL ####Main Lab - [id number] [place], [place] [address] Basophils/100 WBC Auto (Bld) 1.0 % Normal 0.0-1.0 [facility] Comment on above: Order Comment: @07/30: SMUDGE CELLS added. RFLXG = MORPH.@08/17/17650: GIANT PLATELETS added. RFLXG = MORPH.@08/17/17650: POLYCHROM added. RFLXG = MORPH.@08/17/17650: HYPERCHROM added. RFLXG = MORPH.@08/17/17650: HYPOCHROM added. RFLXG = MORPH.@08/17/17650: POIK added. RFLXG = MORPH.@08/17/17650: BASO STIP added. RFLXG = MORPH.@08/17/17650: ANISO added. RFLXG = MORPH.@08/17/17650: MICRO added. RFLXG = MORPH.@08/17/17650: MACRO added. RFLXG = MORPH.@08/17/17650: SPHERE added. RFLXG = MORPH.@08/17/17650: ELLIPTO added. RFLXG = MORPH.@08/17/17650: SIDEROCYTE added. RFLXG = MORPH.@08/17/17650: ADARSH BODIES added. RFLXG = MORPH.@08/17/17650: PELGER-HUET added. RFLXG = MORPH.@08/17/17650: ANA LILIA BODIES added. RFLXG = MORPH.@08/17/17650: SICKLE added. RFLXG = MORPH.@08/17/1751: TARGET added. RFLXG = MORPH.@08/17/17650: TEAR added. RFLXG = MORPH.@08/17/17650: OVAL added. RFLXG = MORPH.@08/17/17650: STOMATO added. RFLXG = MORPH.@08/17/17650: HELMET CELLS added. RFLXG = MORPH.@08/17/17650: HJ BODIES added. RFLXG = MORPH.@08/17/17650: TOXIC GRAN added. RFLXG = MORPH.@08/17/17650: TOXIC VAC added. RFLXG = MORPH.@08/17/17650: DOHLE BODIES added. RFLXG = MORPH.@08/17/17650: NIMISHA CELLS added. RFLXG = MORPH.@08/17/17650: CRENATED RBC added. RFLXG = MORPH.@08/17/17650: ACANTHO added. RFLXG = MORPH.@08/17/17650: ROLY RODS added. RFLXG = MORPH.@08/17/17650: ROULEAUX added. RFLXG = MORPH.@08/17/17650: SCHISTO added. RFLXG = MORPH.@08/17/17650: PARASITES added. RFLXG = MORPH. Performed By: #### C REAT-EGFR, SEC CALL ####Main Lab - [id number] [place], [place] [address] Eosinophils 0.4 10 3/uL Normal 0.0-0.7 [facility] Comment on above: Order Comment: @07/30: SMUDGE CELLS added. RFLXG = MORPH.@08/17/17650: GIANT PLATELETS added. RFLXG = MORPH.@08/17/17650: POLYCHROM added. RFLXG = MORPH.@08/17/17650: HYPERCHROM added. RFLXG = MORPH.@08/17/17650: HYPOCHROM added. RFLXG = MORPH.@08/17/17650: POIK added. RFLXG = MORPH.@08/17/17650: BASO STIP added. RFLXG = MORPH.@08/17/17650: ANISO added. RFLXG = MORPH.@08/17/17650: MICRO added. RFLXG = MORPH.@08/17/17650: MACRO added. RFLXG = MORPH.@08/17/17650: SPHERE added. RFLXG = MORPH.@08/17/17650: ELLIPTO added. RFLXG = MORPH.@08/17/17650: SIDEROCYTE added. RFLXG = MORPH.@08/17/17650: ADARSH BODIES added. RFLXG = MORPH.@08/17/17650: PELGER-HUET added. RFLXG = MORPH.@08/17/17650: ANA LILIA BODIES added. RFLXG = MORPH.@08/17/17650: SICKLE added. RFLXG = MORPH.@08/17/17650: TARGET added. RFLXG = MORPH.@08/17/17650: TEAR added. RFLXG = MORPH.@08/17/17650: OVAL added. RFLXG = MORPH.@08/17/17650: STOMATO added. RFLXG = MORPH.@08/17/17650: HELMET CELLS added. RFLXG = MORPH.@08/17/17650: HJ BODIES added. RFLXG = MORPH.@08/17/17650: TOXIC GRAN added. RFLXG = MORPH.@08/17/17650: TOXIC VAC added. RFLXG = MORPH.@08/17/17650: DOHLE BODIES added. RFLXG = MORPH.@08/17/17650: NIMIHSA CELLS added. RFLXG = MORPH.@08/17/17650: CRENATED RBC added. RFLXG = MORPH.@08/17/17650: ACANTHO added. RFLXG = MORPH.@08/17/17650: ROLY RODS added. RFLXG = MORPH.@08/17/17650: ROULEAUX added. RFLXG = MORPH.@08/17/17650: SCHISTO added. RFLXG = MORPH.@08/17/17650: PARASITES added. RFLXG = MORPH. Performed By: #### C REAT-EGFR, SEC CALL ####[facility] - [id number] [place], [place] [address] Eosinophils/100 leukocytes 4.6 % Normal 0.0-5.0 [facility] Comment on above: Order Comment: @07/30: SMUDGE CELLS added. RFLXG = MORPH.@08/17/17650: GIANT PLATELETS added. RFLXG = MORPH.@08/17/17650: POLYCHROM added. RFLXG = MORPH.@08/17/17650: HYPERCHROM added. RFLXG = MORPH.@08/17/17650: HYPOCHROM added. RFLXG = MORPH.@08/17/17650: POIK added. RFLXG = MORPH.@08/17/17650: BASO STIP added. RFLXG = MORPH.@08/17/17650: ANISO added. RFLXG = MORPH.@08/17/17650: MICRO added. RFLXG = MORPH.@08/17/17650: MACRO added. RFLXG = MORPH.@08/17/17650: SPHERE added. RFLXG = MORPH.@08/17/17650: ELLIPTO added. RFLXG = MORPH.@08/17/17650: SIDEROCYTE added. RFLXG = MORPH.@08/17/17650: ADARSH BODIES added. RFLXG = MORPH.@08/17/17650: PELGER-HUET added. RFLXG = MORPH.@08/17/17650: ANA LILIA BODIES added. RFLXG = MORPH.@08/17/17650: SICKLE added. RFLXG = MORPH.@08/17/17650: TARGET added. RFLXG = MORPH.@08/17/17650: TEAR added. RFLXG = MORPH.@08/17/17650: OVAL added. RFLXG = MORPH.@08/17/17650: STOMATO added. RFLXG = MORPH.@08/17/17650: HELMET CELLS added. RFLXG = MORPH.@08/17/17650: HJ BODIES added. RFLXG = MORPH.@08/17/17650: TOXIC GRAN added. RFLXG = MORPH.@08/17/17650: TOXIC VAC added. RFLXG = MORPH.@08/17/17650: DOHLE BODIES added. RFLXG = MORPH.@08/17/17650: NIMISHA CELLS added. RFLXG = MORPH.@08/17/17650: CRENATED RBC added. RFLXG = MORPH.@08/17/17650: ACANTHO added. RFLXG = MORPH.@08/17/17650: ROLY RODS added. RFLXG = MORPH.@08/17/17650: ROULEAUX added. RFLXG = MORPH.@08/17/17650: SCHISTO added. RFLXG = MORPH.@08/17/17650: PARASITES added. RFLXG = MORPH. Performed By: #### C REAT-EGFR, SEC CALL ####[facility] - [id number] [place], [place] [address] Erythrocyte distribution width Auto Ratio (RBC) 26.3 % High 11.5-14.0 [facility] Comment on above: Order Comment: @07/30: SMUDGE CELLS added. RFLXG = MORPH.@08/17/17650: GIANT PLATELETS added. RFLXG = MORPH.@08/17/17650: POLYCHROM added. RFLXG = MORPH.@08/17/17650: HYPERCHROM added. RFLXG = MORPH.@08/17/17650: HYPOCHROM added. RFLXG = MORPH.@08/17/17650: POIK added. RFLXG = MORPH.@08/17/17650: BASO STIP added. RFLXG = MORPH.@08/17/17650: ANISO added. RFLXG = MORPH.@08/17/17650: MICRO added. RFLXG = MORPH.@08/17/17650: MACRO added. RFLXG = MORPH.@08/17/17650: SPHERE added. RFLXG = MORPH.@08/17/17650: ELLIPTO added. RFLXG = MORPH.@08/17/17650: SIDEROCYTE added. RFLXG = MORPH.@08/17/17650: ADARSH BODIES added. RFLXG = MORPH.@08/17/17650: PELGER-HUET added. RFLXG = MORPH.@08/17/17650: ANA LILIA BODIES added. RFLXG = MORPH.@08/17/17650: SICKLE added. RFLXG = MORPH.@08/17/17650: TARGET added. RFLXG = MORPH.@08/17/17650: TEAR added. RFLXG = MORPH.@08/17/17650: OVAL added. RFLXG = MORPH.@08/17/17650: STOMATO added. RFLXG = MORPH.@08/17/17650: HELMET CELLS added. RFLXG = MORPH.@08/17/17650: HJ BODIES added. RFLXG = MORPH.@08/17/17650: TOXIC GRAN added. RFLXG = MORPH.@08/17/17650: TOXIC VAC added. RFLXG = MORPH.@08/17/17650: DOHLE BODIES added. RFLXG = MORPH.@08/17/17650: NIMISHA CELLS added. RFLXG = MORPH.@08/17/17650: CRENATED RBC added. RFLXG = MORPH.@08/17/17650: ACANTHO added. RFLXG = MORPH.@08/17/17650: ROLY RODS added. RFLXG = MORPH.@08/17/17650: ROULEAUX added. RFLXG = MORPH.@08/17/17650: SCHISTO added. RFLXG = MORPH.@08/17/17650: PARASITES added. RFLXG = MORPH. Performed By: #### C REAT-EGFR, SEC CALL ####Main Lab - [id number] [place], [place] [address] Erythrocytes (RBC) 4.50 x10 6/uL Normal 3.89-5.30 [facility] Comment on above: Order Comment: @07/30: SMUDGE CELLS added. RFLXG = MORPH.@08/17/17650: GIANT PLATELETS added. RFLXG = MORPH.@08/17/17650: POLYCHROM added. RFLXG = MORPH.@08/17/17650: HYPERCHROM added. RFLXG = MORPH.@08/17/17650: HYPOCHROM added. RFLXG = MORPH.@08/17/17650: POIK added. RFLXG = MORPH.@08/17/17650: BASO STIP added. RFLXG = MORPH.@08/17/17650: ANISO added. RFLXG = MORPH.@08/17/17650: MICRO added. RFLXG = MORPH.@08/17/17650: MACRO added. RFLXG = MORPH.@08/17/17650: SPHERE added. RFLXG = MORPH.@08/17/17650: ELLIPTO added. RFLXG = MORPH.@08/17/17650: SIDEROCYTE added. RFLXG = MORPH.@08/17/17650: ADARSH BODIES added. RFLXG = MORPH.@08/17/17650: PELGER-HUET added. RFLXG = MORPH.@08/17/17650: ANA LILIA BODIES added. RFLXG = MORPH.@08/17/17650: SICKLE added. RFLXG = MORPH.@08/17/17650: TARGET added. RFLXG = MORPH.@08/17/17650: TEAR added. RFLXG = MORPH.@08/17/17650: OVAL added. RFLXG = MORPH.@08/17/17650: STOMATO added. RFLXG = MORPH.@08/17/17650: HELMET CELLS added. RFLXG = MORPH.@08/17/17650: HJ BODIES added. RFLXG = MORPH.@08/17/17650: TOXIC GRAN added. RFLXG = MORPH.@08/17/17650: TOXIC VAC added. RFLXG = MORPH.@08/17/17650: DOHLE BODIES added. RFLXG = MORPH.@08/17/17650: NIMISHA CELLS added. RFLXG = MORPH.@08/17/17650: CRENATED RBC added. RFLXG = MORPH.@08/17/17650: ACANTHO added. RFLXG = MORPH.@08/17/17650: ROLY RODS added. RFLXG = MORPH.@08/17/17650: ROULEAUX added. RFLXG = MORPH.@08/17/17650: SCHISTO added. RFLXG = MORPH.@08/17/17650: PARASITES added. RFLXG = MORPH. Performed By: #### C REAT-EGFR, SEC CALL ####Main Lab - [id number] [place], [place] [address] Hematocrit (HCT) 27.8 % Low 34.8-45.0 [facility] Comment on above: Order Comment: @07/30: SMUDGE CELLS added. RFLXG = MORPH.@08/17/17650: GIANT PLATELETS added. RFLXG = MORPH.@08/17/17650: POLYCHROM added. RFLXG = MORPH.@08/17/17650: HYPERCHROM added. RFLXG = MORPH.@08/17/17650: HYPOCHROM added. RFLXG = MORPH.@08/17/17650: POIK added. RFLXG = MORPH.@08/17/17650: BASO STIP added. RFLXG = MORPH.@08/17/17650: ANISO added. RFLXG = MORPH.@08/17/17650: MICRO added. RFLXG = MORPH.@08/17/17650: MACRO added. RFLXG = MORPH.@08/17/17650: SPHERE added. RFLXG = MORPH.@08/17/17650: ELLIPTO added. RFLXG = MORPH.@08/17/17650: SIDEROCYTE added. RFLXG = MORPH.@08/17/17650: ADARSH BODIES added. RFLXG = MORPH.@08/17/17650: PELGER-HUET added. RFLXG = MORPH.@08/17/17650: ANA LILIA BODIES added. RFLXG = MORPH.@08/17/1751: SICKLE added. RFLXG = MORPH.@08/17/17650: TARGET added. RFLXG = MORPH.@08/17/17650: TEAR added. RFLXG = MORPH.@08/17/17650: OVAL added. RFLXG = MORPH.@08/17/17650: STOMATO added. RFLXG = MORPH.@08/17/17650: HELMET CELLS added. RFLXG = MORPH.@08/17/17650: HJ BODIES added. RFLXG = MORPH.@08/17/17650: TOXIC GRAN added. RFLXG = MORPH.@08/17/17650: TOXIC VAC added. RFLXG = MORPH.@08/17/17650: DOHLE BODIES added. RFLXG = MORPH.@08/17/17650: NIMISHA CELLS added. RFLXG = MORPH.@08/17/17650: CRENATED RBC added. RFLXG = MORPH.@08/17/17650: ACANTHO added. RFLXG = MORPH.@08/17/17650: ROLY RODS added. RFLXG = MORPH.@08/17/17650: ROULEAUX added. RFLXG = MORPH.@08/17/17650: SCHISTO added. RFLXG = MORPH.@08/17/17650: PARASITES added. RFLXG = MORPH. Performed By: #### C REAT-EGFR, SEC CALL ####Main Lab - [id number] [place] [address] Hemoglobin mass conc (Bld) 9.0 g/dL Low 11.6-14.9 [facility] Comment on above: Order Comment: @07/30: SMUDGE CELLS added. RFLXG = MORPH.@08/17/17650: GIANT PLATELETS added. RFLXG = MORPH.@08/17/17650: POLYCHROM added. RFLXG = MORPH.@08/17/17650: HYPERCHROM added. RFLXG = MORPH.@08/17/17650: HYPOCHROM added. RFLXG = MORPH.@08/17/17650: POIK added. RFLXG = MORPH.@08/17/17650: BASO STIP added. RFLXG = MORPH.@08/17/17650: ANISO added. RFLXG = MORPH.@08/17/17650: MICRO added. RFLXG = MORPH.@08/17/17650: MACRO added. RFLXG = MORPH.@08/17/17650: SPHERE added. RFLXG = MORPH.@08/17/17650: ELLIPTO added. RFLXG = MORPH.@08/17/17650: SIDEROCYTE added. RFLXG = MORPH.@08/17/17650: ADARSH BODIES added. RFLXG = MORPH.@08/17/17650: PELGER-HUET added. RFLXG = MORPH.@08/17/17650: ANA LILIA BODIES added. RFLXG = MORPH.@08/17/17650: SICKLE added. RFLXG = MORPH.@08/17/17650: TARGET added. RFLXG = MORPH.@08/17/17650: TEAR added. RFLXG = MORPH.@08/17/17650: OVAL added. RFLXG = MORPH.@08/17/17650: STOMATO added. RFLXG = MORPH.@08/17/17650: HELMET CELLS added. RFLXG = MORPH.@08/17/17650: HJ BODIES added. RFLXG = MORPH.@08/17/17650: TOXIC GRAN added. RFLXG = MORPH.@08/17/17650: TOXIC VAC added. RFLXG = MORPH.@08/17/17650: DOHLE BODIES added. RFLXG = MORPH.@08/17/17650: NIMISHA CELLS added. RFLXG = MORPH.@08/17/17650: CRENATED RBC added. RFLXG = MORPH.@08/17/17650: ACANTHO added. RFLXG = MORPH.@08/17/17650: ROLY RODS added. RFLXG = MORPH.@08/17/17650: ROULEAUX added. RFLXG = MORPH.@08/17/17650: SCHISTO added. RFLXG = MORPH.@08/17/17650: PARASITES added. RFLXG = MORPH. Performed By: #### C REAT-EGFR, SEC CALL ####[facility] - [id number] [place], [place] [address] Lymphocytes 1.6 10 3/uL Normal 1.0-3.5 [facility] Comment on above: Order Comment: @07/30: SMUDGE CELLS added. RFLXG = MORPH.@08/17/17650: GIANT PLATELETS added. RFLXG = MORPH.@08/17/17650: POLYCHROM added. RFLXG = MORPH.@08/17/17650: HYPERCHROM added. RFLXG = MORPH.@08/17/17650: HYPOCHROM added. RFLXG = MORPH.@08/17/17650: POIK added. RFLXG = MORPH.@08/17/17650: BASO STIP added. RFLXG = MORPH.@08/17/17650: ANISO added. RFLXG = MORPH.@08/17/17650: MICRO added. RFLXG = MORPH.@08/17/17650: MACRO added. RFLXG = MORPH.@08/17/17650: SPHERE added. RFLXG = MORPH.@08/17/17650: ELLIPTO added. RFLXG = MORPH.@08/17/17650: SIDEROCYTE added. RFLXG = MORPH.@08/17/17650: ADARSH BODIES added. RFLXG = MORPH.@08/17/17650: PELGER-HUET added. RFLXG = MORPH.@08/17/17650: ANA LILIA BODIES added. RFLXG = MORPH.@08/17/17650: SICKLE added. RFLXG = MORPH.@08/17/17650: TARGET added. RFLXG = MORPH.@08/17/17650: TEAR added. RFLXG = MORPH.@08/17/17650: OVAL added. RFLXG = MORPH.@08/17/17650: STOMATO added. RFLXG = MORPH.@08/17/17650: HELMET CELLS added. RFLXG = MORPH.@08/17/17650: HJ BODIES added. RFLXG = MORPH.@08/17/17650: TOXIC GRAN added. RFLXG = MORPH.@08/17/17650: TOXIC VAC added. RFLXG = MORPH.@08/17/17650: DOHLE BODIES added. RFLXG = MORPH.@08/17/17650: NIMISHA CELLS added. RFLXG = MORPH.@08/17/17650: CRENATED RBC added. RFLXG = MORPH.@08/17/17650: ACANTHO added. RFLXG = MORPH.@08/17/17650: ROLY RODS added. RFLXG = MORPH.@08/17/17650: ROULEAUX added. RFLXG = MORPH.@08/17/17650: SCHISTO added. RFLXG = MORPH.@08/17/17650: PARASITES added. RFLXG = MORPH. Performed By: #### C REAT-EGFR, SEC CALL ####Main Lab - [id number] [place], [place] [address] Lymphocytes/100 leukocytes 19.7 % Low 24.0-44.0 [facility] Comment on above: Order Comment: @07/30: SMUDGE CELLS added. RFLXG = MORPH.@08/17/17650: GIANT PLATELETS added. RFLXG = MORPH.@08/17/17650: POLYCHROM added. RFLXG = MORPH.@08/17/17650: HYPERCHROM added. RFLXG = MORPH.@08/17/17650: HYPOCHROM added. RFLXG = MORPH.@08/17/17650: POIK added. RFLXG = MORPH.@08/17/17650: BASO STIP added. RFLXG = MORPH.@08/17/17650: ANISO added. RFLXG = MORPH.@08/17/17650: MICRO added. RFLXG = MORPH.@08/17/17650: MACRO added. RFLXG = MORPH.@08/17/17650: SPHERE added. RFLXG = MORPH.@08/17/17650: ELLIPTO added. RFLXG = MORPH.@08/17/17650: SIDEROCYTE added. RFLXG = MORPH.@08/17/17650: ADARSH BODIES added. RFLXG = MORPH.@08/17/17650: PELGER-HUET added. RFLXG = MORPH.@08/17/17650: ANA LILIA BODIES added. RFLXG = MORPH.@08/17/17650: SICKLE added. RFLXG = MORPH.@08/17/17650: TARGET added. RFLXG = MORPH.@08/17/17650: TEAR added. RFLXG = MORPH.@08/17/17650: OVAL added. RFLXG = MORPH.@08/17/17650: STOMATO added. RFLXG = MORPH.@08/17/17650: HELMET CELLS added. RFLXG = MORPH.@08/17/17650: HJ BODIES added. RFLXG = MORPH.@08/17/17650: TOXIC GRAN added. RFLXG = MORPH.@08/17/17650: TOXIC VAC added. RFLXG = MORPH.@08/17/17650: DOHLE BODIES added. RFLXG = MORPH.@08/17/17650: NIMISHA CELLS added. RFLXG = MORPH.@08/17/17650: CRENATED RBC added. RFLXG = MORPH.@08/17/17650: ACANTHO added. RFLXG = MORPH.@08/17/17650: ROLY RODS added. RFLXG = MORPH.@08/17/17650: ROULEAUX added. RFLXG = MORPH.@08/17/17650: SCHISTO added. RFLXG = MORPH.@08/17/17650: PARASITES added. RFLXG = MORPH. Performed By: #### C REAT-EGFR, SEC CALL ####Main Lab - [id number] [place] [address] MCH 20.1 pg Low 27.0-31.0 [facility] Comment on above: Order Comment: @07/30: SMUDGE CELLS added. RFLXG = MORPH.@08/17/17650: GIANT PLATELETS added. RFLXG = MORPH.@08/17/17650: POLYCHROM added. RFLXG = MORPH.@08/17/17650: HYPERCHROM added. RFLXG = MORPH.@08/17/17650: HYPOCHROM added. RFLXG = MORPH.@08/17/17650: POIK added. RFLXG = MORPH.@08/17/17650: BASO STIP added. RFLXG = MORPH.@08/17/17650: ANISO added. RFLXG = MORPH.@08/17/17650: MICRO added. RFLXG = MORPH.@08/17/17650: MACRO added. RFLXG = MORPH.@08/17/17650: SPHERE added. RFLXG = MORPH.@08/17/17650: ELLIPTO added. RFLXG = MORPH.@08/17/17650: SIDEROCYTE added. RFLXG = MORPH.@08/17/17650: ADARSH BODIES added. RFLXG = MORPH.@08/17/17650: PELGER-HUET added. RFLXG = MORPH.@08/17/17650: ANA LILIA BODIES added. RFLXG = MORPH.@08/17/17650: SICKLE added. RFLXG = MORPH.@08/17/17650: TARGET added. RFLXG = MORPH.@08/17/17650: TEAR added. RFLXG = MORPH.@08/17/17650: OVAL added. RFLXG = MORPH.@08/17/17650: STOMATO added. RFLXG = MORPH.@08/17/17650: HELMET CELLS added. RFLXG = MORPH.@08/17/17650: HJ BODIES added. RFLXG = MORPH.@08/17/17650: TOXIC GRAN added. RFLXG = MORPH.@08/17/17650: TOXIC VAC added. RFLXG = MORPH.@08/17/17650: DOHLE BODIES added. RFLXG = MORPH.@08/17/17650: NIMISHA CELLS added. RFLXG = MORPH.@08/17/17650: CRENATED RBC added. RFLXG = MORPH.@08/17/17650: ACANTHO added. RFLXG = MORPH.@08/17/17650: ROLY RODS added. RFLXG = MORPH.@08/17/17650: ROULEAUX added. RFLXG = MORPH.@08/17/17650: SCHISTO added. RFLXG = MORPH.@08/17/17650: PARASITES added. RFLXG = MORPH. Performed By: #### C REAT-EGFR, SEC CALL ####Main Lab - [id number] [place] [id number] MCHC mass conc (RBC) 32.5 g/dL Normal 32.0-36.0 [facility] Comment on above: Order Comment: @07/30: SMUDGE CELLS added. RFLXG = MORPH.@08/17/17650: GIANT PLATELETS added. RFLXG = MORPH.@08/17/17650: POLYCHROM added. RFLXG = MORPH.@08/17/17650: HYPERCHROM added. RFLXG = MORPH.@08/17/17650: HYPOCHROM added. RFLXG = MORPH.@08/17/17650: POIK added. RFLXG = MORPH.@08/17/17650: BASO STIP added. RFLXG = MORPH.@08/17/17650: ANISO added. RFLXG = MORPH.@08/17/17650: MICRO added. RFLXG = MORPH.@08/17/17650: MACRO added. RFLXG = MORPH.@08/17/17650: SPHERE added. RFLXG = MORPH.@08/17/17650: ELLIPTO added. RFLXG = MORPH.@08/17/17650: SIDEROCYTE added. RFLXG = MORPH.@08/17/17650: ADARSH BODIES added. RFLXG = MORPH.@08/17/17650: PELGER-HUET added. RFLXG = MORPH.@08/17/17650: ANA LILIA BODIES added. RFLXG = MORPH.@08/17/17650: SICKLE added. RFLXG = MORPH.@08/17/17650: TARGET added. RFLXG = MORPH.@08/17/17650: TEAR added. RFLXG = MORPH.@08/17/17650: OVAL added. RFLXG = MORPH.@08/17/17650: STOMATO added. RFLXG = MORPH.@08/17/17650: HELMET CELLS added. RFLXG = MORPH.@08/17/17650: HJ BODIES added. RFLXG = MORPH.@08/17/17650: TOXIC GRAN added. RFLXG = MORPH.@08/17/17650: TOXIC VAC added. RFLXG = MORPH.@08/17/17650: DOHLE BODIES added. RFLXG = MORPH.@08/17/17650: NIMISHA CELLS added. RFLXG = MORPH.@08/17/17650: CRENATED RBC added. RFLXG = MORPH.@08/17/17650: ACANTHO added. RFLXG = MORPH.@08/17/17650: ROLY RODS added. RFLXG = MORPH.@08/17/17650: ROULEAUX added. RFLXG = MORPH.@08/17/17650: SCHISTO added. RFLXG = MORPH.@08/17/17650: PARASITES added. RFLXG = MORPH. Performed By: #### C REAT-EGFR, SEC CALL ####Main Lab - [id number] [place], [place] [address] MCV 61.9 fL Low 78.0-100.0 [facility] Comment on above: Order Comment: @07/30: SMUDGE CELLS added. RFLXG = MORPH.@08/17/17650: GIANT PLATELETS added. RFLXG = MORPH.@08/17/17650: POLYCHROM added. RFLXG = MORPH.@08/17/17650: HYPERCHROM added. RFLXG = MORPH.@08/17/17650: HYPOCHROM added. RFLXG = MORPH.@08/17/17650: POIK added. RFLXG = MORPH.@08/17/17650: BASO STIP added. RFLXG = MORPH.@08/17/17650: ANISO added. RFLXG = MORPH.@08/17/17650: MICRO added. RFLXG = MORPH.@08/17/17650: MACRO added. RFLXG = MORPH.@08/17/17650: SPHERE added. RFLXG = MORPH.@08/17/17650: ELLIPTO added. RFLXG = MORPH.@08/17/17650: SIDEROCYTE added. RFLXG = MORPH.@08/17/17650: ADARSH BODIES added. RFLXG = MORPH.@08/17/17650: PELGER-HUET added. RFLXG = MORPH.@08/17/17650: ANA LILIA BODIES added. RFLXG = MORPH.@08/17/17650: SICKLE added. RFLXG = MORPH.@08/17/17650: TARGET added. RFLXG = MORPH.@08/17/17650: TEAR added. RFLXG = MORPH.@08/17/17650: OVAL added. RFLXG = MORPH.@08/17/17650: STOMATO added. RFLXG = MORPH.@08/17/17650: HELMET CELLS added. RFLXG = MORPH.@08/17/17650: HJ BODIES added. RFLXG = MORPH.@08/17/17650: TOXIC GRAN added. RFLXG = MORPH.@08/17/17650: TOXIC VAC added. RFLXG = MORPH.@08/17/17650: DOHLE BODIES added. RFLXG = MORPH.@08/17/17650: NIMISHA CELLS added. RFLXG = MORPH.@08/17/17650: CRENATED RBC added. RFLXG = MORPH.@08/17/17650: ACANTHO added. RFLXG = MORPH.@08/17/17650: ROLY RODS added. RFLXG = MORPH.@08/17/17650: ROULEAUX added. RFLXG = MORPH.@08/17/17650: SCHISTO added. RFLXG = MORPH.@08/17/17650: PARASITES added. RFLXG = MORPH. Performed By: #### C REAT-EGFR, SEC CALL ####[facility] - [id number] [place], [place] [address] Monocytes 0.9 10 3/uL High 0.2-0.8 [facility] Comment on above: Order Comment: @07/30: SMUDGE CELLS added. RFLXG = MORPH.@08/17/17650: GIANT PLATELETS added. RFLXG = MORPH.@08/17/17650: POLYCHROM added. RFLXG = MORPH.@08/17/17650: HYPERCHROM added. RFLXG = MORPH.@08/17/17650: HYPOCHROM added. RFLXG = MORPH.@08/17/17650: POIK added. RFLXG = MORPH.@08/17/17650: BASO STIP added. RFLXG = MORPH.@08/17/17650: ANISO added. RFLXG = MORPH.@08/17/17650: MICRO added. RFLXG = MORPH.@08/17/17650: MACRO added. RFLXG = MORPH.@08/17/17650: SPHERE added. RFLXG = MORPH.@08/17/17650: ELLIPTO added. RFLXG = MORPH.@08/17/17650: SIDEROCYTE added. RFLXG = MORPH.@08/17/17650: ADARSH BODIES added. RFLXG = MORPH.@08/17/17650: PELGER-HUET added. RFLXG = MORPH.@08/17/17650: ANA LILIA BODIES added. RFLXG = MORPH.@08/17/17650: SICKLE added. RFLXG = MORPH.@08/17/17650: TARGET added. RFLXG = MORPH.@08/17/17650: TEAR added. RFLXG = MORPH.@08/17/17650: OVAL added. RFLXG = MORPH.@08/17/17650: STOMATO added. RFLXG = MORPH.@08/17/17650: HELMET CELLS added. RFLXG = MORPH.@08/17/17650: HJ BODIES added. RFLXG = MORPH.@08/17/17650: TOXIC GRAN added. RFLXG = MORPH.@08/17/17650: TOXIC VAC added. RFLXG = MORPH.@08/17/17650: DOHLE BODIES added. RFLXG = MORPH.@08/17/17650: NIMISHA CELLS added. RFLXG = MORPH.@08/17/17650: CRENATED RBC added. RFLXG = MORPH.@08/17/17650: ACANTHO added. RFLXG = MORPH.@08/17/17650: ROLY RODS added. RFLXG = MORPH.@08/17/17650: ROULEAUX added. RFLXG = MORPH.@08/17/17650: SCHISTO added. RFLXG = MORPH.@08/17/17650: PARASITES added. RFLXG = MORPH. Performed By: #### C REAT-EGFR, SEC CALL ####Main Lab - [id number] [place], [place] [address] Monocytes/100 leukocytes 11.9 % High 1.7-9.3 [facility] Comment on above: Order Comment: @07/30: SMUDGE CELLS added. RFLXG = MORPH.@08/17/17650: GIANT PLATELETS added. RFLXG = MORPH.@08/17/17650: POLYCHROM added. RFLXG = MORPH.@08/17/17650: HYPERCHROM added. RFLXG = MORPH.@08/17/17650: HYPOCHROM added. RFLXG = MORPH.@08/17/17650: POIK added. RFLXG = MORPH.@08/17/17650: BASO STIP added. RFLXG = MORPH.@08/17/17650: ANISO added. RFLXG = MORPH.@08/17/17650: MICRO added. RFLXG = MORPH.@08/17/17650: MACRO added. RFLXG = MORPH.@08/17/17650: SPHERE added. RFLXG = MORPH.@08/17/17650: ELLIPTO added. RFLXG = MORPH.@08/17/17650: SIDEROCYTE added. RFLXG = MORPH.@08/17/17650: ADARSH BODIES added. RFLXG = MORPH.@08/17/17650: PELGER-HUET added. RFLXG = MORPH.@08/17/17650: ANA LILIA BODIES added. RFLXG = MORPH.@08/17/17650: SICKLE added. RFLXG = MORPH.@08/17/17650: TARGET added. RFLXG = MORPH.@08/17/17650: TEAR added. RFLXG = MORPH.@08/17/17650: OVAL added. RFLXG = MORPH.@08/17/17650: STOMATO added. RFLXG = MORPH.@08/17/17650: HELMET CELLS added. RFLXG = MORPH.@08/17/17650: HJ BODIES added. RFLXG = MORPH.@08/17/17650: TOXIC GRAN added. RFLXG = MORPH.@08/17/17650: TOXIC VAC added. RFLXG = MORPH.@08/17/17650: DOHLE BODIES added. RFLXG = MORPH.@08/17/17650: NIMISHA CELLS added. RFLXG = MORPH.@08/17/17650: CRENATED RBC added. RFLXG = MORPH.@08/17/17650: ACANTHO added. RFLXG = MORPH.@08/17/17650: ROLY RODS added. RFLXG = MORPH.@08/17/17650: ROULEAUX added. RFLXG = MORPH.@08/17/17650: SCHISTO added. RFLXG = MORPH.@08/17/17650: PARASITES added. RFLXG = MORPH. Performed By: #### C REAT-EGFR, SEC CALL ####[facility] - [id number] [place], [place] [address] Neutrophils 5.0 10 3/uL Normal 1.5-6.7 [facility] Comment on above: Order Comment: @07/30: SMUDGE CELLS added. RFLXG = MORPH.@08/17/17650: GIANT PLATELETS added. RFLXG = MORPH.@08/17/17650: POLYCHROM added. RFLXG = MORPH.@08/17/17650: HYPERCHROM added. RFLXG = MORPH.@08/17/17650: HYPOCHROM added. RFLXG = MORPH.@08/17/17650: POIK added. RFLXG = MORPH.@08/17/17650: BASO STIP added. RFLXG = MORPH.@08/17/17650: ANISO added. RFLXG = MORPH.@08/17/17650: MICRO added. RFLXG = MORPH.@08/17/17650: MACRO added. RFLXG = MORPH.@08/17/17650: SPHERE added. RFLXG = MORPH.@08/17/17650: ELLIPTO added. RFLXG = MORPH.@08/17/17650: SIDEROCYTE added. RFLXG = MORPH.@08/17/17650: ADARSH BODIES added. RFLXG = MORPH.@08/17/17650: PELGER-HUET added. RFLXG = MORPH.@08/17/17650: ANA LILIA BODIES added. RFLXG = MORPH.@08/17/17650: SICKLE added. RFLXG = MORPH.@08/17/17650: TARGET added. RFLXG = MORPH.@08/17/17650: TEAR added. RFLXG = MORPH.@08/17/17650: OVAL added. RFLXG = MORPH.@08/17/17650: STOMATO added. RFLXG = MORPH.@08/17/17650: HELMET CELLS added. RFLXG = MORPH.@08/17/17650: HJ BODIES added. RFLXG = MORPH.@08/17/17650: TOXIC GRAN added. RFLXG = MORPH.@08/17/17650: TOXIC VAC added. RFLXG = MORPH.@08/17/17650: DOHLE BODIES added. RFLXG = MORPH.@08/17/17650: NIMISHA CELLS added. RFLXG = MORPH.@08/17/17650: CRENATED RBC added. RFLXG = MORPH.@08/17/17650: ACANTHO added. RFLXG = MORPH.@08/17/17650: ROLY RODS added. RFLXG = MORPH.@08/17/17650: ROULEAUX added. RFLXG = MORPH.@08/17/17650: SCHISTO added. RFLXG = MORPH.@08/17/17650: PARASITES added. RFLXG = MORPH. Performed By: #### C REAT-EGFR, SEC CALL ####[facility] - [id number] [place] [id number] Platelet mean volume (PMV) 9.1 fL Normal 6.0-9.5 [facility] Comment on above: Order Comment: @07/30: SMUDGE CELLS added. RFLXG = MORPH.@08/17/17650: GIANT PLATELETS added. RFLXG = MORPH.@08/17/17650: POLYCHROM added. RFLXG = MORPH.@08/17/17650: HYPERCHROM added. RFLXG = MORPH.@08/17/17650: HYPOCHROM added. RFLXG = MORPH.@08/17/17650: POIK added. RFLXG = MORPH.@08/17/17650: BASO STIP added. RFLXG = MORPH.@08/17/17650: ANISO added. RFLXG = MORPH.@08/17/17650: MICRO added. RFLXG = MORPH.@08/17/17650: MACRO added. RFLXG = MORPH.@08/17/17650: SPHERE added. RFLXG = MORPH.@08/17/17650: ELLIPTO added. RFLXG = MORPH.@08/17/17650: SIDEROCYTE added. RFLXG = MORPH.@08/17/17650: ADARSH BODIES added. RFLXG = MORPH.@08/17/17650: PELGER-HUET added. RFLXG = MORPH.@08/17/17650: ANA LILIA BODIES added. RFLXG = MORPH.@08/17/17650: SICKLE added. RFLXG = MORPH.@08/17/17650: TARGET added. RFLXG = MORPH.@08/17/17650: TEAR added. RFLXG = MORPH.@08/17/17650: OVAL added. RFLXG = MORPH.@08/17/17650: STOMATO added. RFLXG = MORPH.@08/17/17650: HELMET CELLS added. RFLXG = MORPH.@08/17/17650: HJ BODIES added. RFLXG = MORPH.@08/17/17650: TOXIC GRAN added. RFLXG = MORPH.@08/17/17650: TOXIC VAC added. RFLXG = MORPH.@08/17/17650: DOHLE BODIES added. RFLXG = MORPH.@08/17/17650: NIMISHA CELLS added. RFLXG = MORPH.@08/17/17650: CRENATED RBC added. RFLXG = MORPH.@08/17/17650: ACANTHO added. RFLXG = MORPH.@08/17/17650: ROLY RODS added. RFLXG = MORPH.@08/17/17650: ROULEAUX added. RFLXG = MORPH.@08/17/17650: SCHISTO added. RFLXG = MORPH.@08/17/17650: PARASITES added. RFLXG = MORPH. Performed By: #### C REAT-EGFR, SEC CALL ####[facility] - [id number] [place], [place] [address] Platelets 243 10 3/uL Normal 150-450 [facility] Comment on above: Order Comment: @07/30: SMUDGE CELLS added. RFLXG = MORPH.@08/17/17650: GIANT PLATELETS added. RFLXG = MORPH.@08/17/17650: POLYCHROM added. RFLXG = MORPH.@08/17/17650: HYPERCHROM added. RFLXG = MORPH.@08/17/17650: HYPOCHROM added. RFLXG = MORPH.@08/17/17650: POIK added. RFLXG = MORPH.@08/17/17650: BASO STIP added. RFLXG = MORPH.@08/17/17650: ANISO added. RFLXG = MORPH.@08/17/17650: MICRO added. RFLXG = MORPH.@08/17/17650: MACRO added. RFLXG = MORPH.@08/17/17650: SPHERE added. RFLXG = MORPH.@08/17/17650: ELLIPTO added. RFLXG = MORPH.@08/17/17650: SIDEROCYTE added. RFLXG = MORPH.@08/17/17650: ADARSH BODIES added. RFLXG = MORPH.@08/17/17650: PELGER-HUET added. RFLXG = MORPH.@08/17/17650: ANA LILIA BODIES added. RFLXG = MORPH.@08/17/17650: SICKLE added. RFLXG = MORPH.@08/17/17650: TARGET added. RFLXG = MORPH.@08/17/17650: TEAR added. RFLXG = MORPH.@08/17/17650: OVAL added. RFLXG = MORPH.@08/17/17650: STOMATO added. RFLXG = MORPH.@08/17/17650: HELMET CELLS added. RFLXG = MORPH.@08/17/17650: HJ BODIES added. RFLXG = MORPH.@08/17/17650: TOXIC GRAN added. RFLXG = MORPH.@08/17/17650: TOXIC VAC added. RFLXG = MORPH.@08/17/17650: DOHLE BODIES added. RFLXG = MORPH.@08/17/17650: NIMISHA CELLS added. RFLXG = MORPH.@08/17/17650: CRENATED RBC added. RFLXG = MORPH.@08/17/17650: ACANTHO added. RFLXG = MORPH.@08/17/17650: ROLY RODS added. RFLXG = MORPH.@08/17/17650: ROULEAUX added. RFLXG = MORPH.@08/17/17650: SCHISTO added. RFLXG = MORPH.@08/17/17650: PARASITES added. RFLXG = MORPH. Performed By: #### C REMARY-EGFR, SEC CALL ####[facility] - [id number] [place], [place] [address] Segmented Neutrophils/100 leukocytes 62.8 % Normal 36.0-66.0 [facility] Comment on above: Order Comment: @07/30: SMUDGE CELLS added. RFLXG = MORPH.@08/17/17650: GIANT PLATELETS added. RFLXG = MORPH.@08/17/17650: POLYCHROM added. RFLXG = MORPH.@08/17/17650: HYPERCHROM added. RFLXG = MORPH.@08/17/17650: HYPOCHROM added. RFLXG = MORPH.@08/17/17650: POIK added. RFLXG = MORPH.@08/17/17650: BASO STIP added. RFLXG = MORPH.@08/17/17650: ANISO added. RFLXG = MORPH.@08/17/17650: MICRO added. RFLXG = MORPH.@08/17/17650: MACRO added. RFLXG = MORPH.@08/17/17650: SPHERE added. RFLXG = MORPH.@08/17/17650: ELLIPTO added. RFLXG = MORPH.@08/17/17650: SIDEROCYTE added. RFLXG = MORPH.@08/17/17650: ADARSH BODIES added. RFLXG = MORPH.@08/17/17650: PELGER-HUET added. RFLXG = MORPH.@08/17/17650: ANA LILIA BODIES added. RFLXG = MORPH.@08/17/17650: SICKLE added. RFLXG = MORPH.@08/17/17650: TARGET added. RFLXG = MORPH.@08/17/17650: TEAR added. RFLXG = MORPH.@08/17/17650: OVAL added. RFLXG = MORPH.@08/17/17650: STOMATO added. RFLXG = MORPH.@08/17/17650: HELMET CELLS added. RFLXG = MORPH.@08/17/17650: HJ BODIES added. RFLXG = MORPH.@08/17/17650: TOXIC GRAN added. RFLXG = MORPH.@08/17/17650: TOXIC VAC added. RFLXG = MORPH.@08/17/17650: DOHLE BODIES added. RFLXG = MORPH.@08/17/17650: NIMISHA CELLS added. RFLXG = MORPH.@08/17/17650: CRENATED RBC added. RFLXG = MORPH.@08/17/17650: ACANTHO added. RFLXG = MORPH.@08/17/17650: ROLY RODS added. RFLXG = MORPH.@08/17/17650: ROULEAUX added. RFLXG = MORPH.@08/17/17650: SCHISTO added. RFLXG = MORPH.@08/17/17650: PARASITES added. RFLXG = MORPH. Performed By: #### C REAT-EGFR, SEC CALL ####Main Lab - [id number] [place], [place] [address] WBC (Leukocytes) 7.9 10 3/uL Normal 4.0-10.5 [facility] Comment on above: Order Comment: @07/30: SMUDGE CELLS added. RFLXG = MORPH.@08/17/17650: GIANT PLATELETS added. RFLXG = MORPH.@08/17/17650: POLYCHROM added. RFLXG = MORPH.@08/17/17650: HYPERCHROM added. RFLXG = MORPH.@08/17/17650: HYPOCHROM added. RFLXG = MORPH.@08/17/17650: POIK added. RFLXG = MORPH.@08/17/17650: BASO STIP added. RFLXG = MORPH.@08/17/17650: ANISO added. RFLXG = MORPH.@08/17/17650: MICRO added. RFLXG = MORPH.@08/17/17650: MACRO added. RFLXG = MORPH.@08/17/17650: SPHERE added. RFLXG = MORPH.@08/17/17650: ELLIPTO added. RFLXG = MORPH.@08/17/17650: SIDEROCYTE added. RFLXG = MORPH.@08/17/17650: ADARSH BODIES added. RFLXG = MORPH.@08/17/17650: PELGER-HUET added. RFLXG = MORPH.@08/17/17650: ANA LILIA BODIES added. RFLXG = MORPH.@08/17/17650: SICKLE added. RFLXG = MORPH.@08/17/17650: TARGET added. RFLXG = MORPH.@08/17/17650: TEAR added. RFLXG = MORPH.@08/17/17650: OVAL added. RFLXG = MORPH.@08/17/17650: STOMATO added. RFLXG = MORPH.@08/17/17650: HELMET CELLS added. RFLXG = MORPH.@08/17/17650: HJ BODIES added. RFLXG = MORPH.@08/17/17650: TOXIC GRAN added. RFLXG = MORPH.@08/17/17650: TOXIC VAC added. RFLXG = MORPH.@08/17/17650: DOHLE BODIES added. RFLXG = MORPH.@08/17/17650: NIMISHA CELLS added. RFLXG = MORPH.@08/17/17650: CRENATED RBC added. RFLXG = MORPH.@08/17/17650: ACANTHO added. RFLXG = MORPH.@08/17/17650: ROLY RODS added. RFLXG = MORPH.@08/17/17650: ROULEAUX added. RFLXG = MORPH.@08/17/17650: SCHISTO added. RFLXG = MORPH.@08/17/17650: PARASITES added. RFLXG = MORPH. Performed By: #### C REAT-EGFR, SEC CALL ####Main Lab - [id number] [place], [place] [address] CELL COUNT,PLEURAL FLUIDon 1 10-18-2016 RBC,PLEURAL FLUID 369 /ccm High 0-0 [facility] Comment on above: Order Comment: @07/30 1147: PLF DIFF added. RFLXG = PLFCTDIFF. Performed By: #### C REAT-EGFR, SEC CALL ####Main Lab - [id number] [place], [place] [address] WBC,PLEURAL FLUID 100 /ccm High 0-0 [facility] Comment on above: Order Comment: @07/30 1147: PLF DIFF added. RFLXG = PLFCTDIFF. Result Comment: The WBC Differential was performed on a concentratedspecimen by [employer]. Performed By: #### C REAT-EGFR, SEC CALL ####Main Lab - [id number] [place], [place] [address] APPEARANCE,BODY FLUID CLEAR Normal [facility] Comment on above: Order Comment: @07/30 1147: PLF DIFF added. RFLXG = PLFCTDIFF. Performed By: #### C REAT-EGFR, SEC CALL ####Main Lab - [id number] [place], [place] [address] COLOR,BODY FLUID STRAW Abnormal [facility] Comment on above: Order Comment: @07/30 1147: PLF DIFF added. RFLXG = PLFCTDIFF. Performed By: #### C REAT-EGFR, SEC CALL ####Main Lab - [id number] [place], [place] [address] TOTAL VOLUME,BODY FLUID 858 mL Normal [facility] Comment on above: Order Comment: @07/30 1147: PLF DIFF added. RFLXG = PLFCTDIFF. Performed By: #### C REAT-EGFR, SEC CALL ####Main Lab - [id number] [place], [place] [address] DIFFERENTIAL, PLEURAL FLUIDo n 08-17-2017 MESOTHELIAL CELLS,PLEURAL FLD 24 % Normal [facility] Comment on above: Order Comment: @07/30 1147: PLF DIFF added. RFLXG = PLFCTDIFF. Result Comment: CLUS TERED CELLS SIMILAR TO ISOLATED MESOTHELIAL CELLS, FAVORCLUSTERED MESOTHELIALS. CORRELATE WITH CYTOPATHOLOGY RESULT.Rolando HAN MD Performed By: #### C REAT-EGFR, SEC CALL ####Main Lab - [id number] [place], [place] [address] MACROPHAGE, PLEURAL FLUID 9 % Normal [facility] Comment on above: Order Comment: @07/30 1147: PLF DIFF added. RFLXG = PLFCTDIFF. Performed By: #### C REAT-EGFR, SEC CALL ####Main Lab - [id number] [place], [place] [address] Lymphocytes/100 leukocytes 37 % Normal [facility] Comment on above: Order Comment: @07/30 1147: PLF DIFF added. RFLXG = PLFCTDIFF. Performed By: #### C REAT-EGFR, SEC CALL ####Main Lab - [id number] [place], [place] [address] Monocytes/100 leukocytes 9 % Normal [facility] Comment on above: Order Comment: @07/30 1147: PLF DIFF added. RFLXG = PLFCTDIFF. Performed By: #### C REAT-EGFR, SEC CALL ####Main Lab - [id number] [place], [place] [address] SEG NEUT,PLEURAL FLUID 21 % Normal [facility] Comment on above: Order Comment: @07/30 1147: PLF DIFF added. RFLXG = PLFCTDIFF. Performed By: #### C REAT-EGFR, SEC CALL ####Main Lab - [id number] [place], [place] [address] DISCHARGE SUMMARYon 08-17-20 DISCHARGE SUMMARY [address] [place] [address] DISCHARGE SUMMARY : [id number] Signed Name: BLAS LUJAN MRUN: [id number] : 1960 Loc: 3S Age / Sex: 57/ F Adm Status: DIS IN Adm Date:08/14/17 Room/Bed: [facility] DISCHARGE DIAGNOSES: Include 1. Severe mitral regurgitation and pleural effusion. 2. Anemia secondary to peptic ulcer disease. 3. Chronic pain due to back pain, has history of fractures of her disks. 4. Chronic obstructive pulmonary disease. HOSPITAL COURSE: The patient presented with atypical chest pain, ruled out for ACS. Also ruled out for pulmonary embolism. Did have multiple heart failure symptoms as well, found that she does have severe mitral regurgitation. Dr. Shea Cesar saw the patient. Recommended the patient get a BERTHA after the holidays since the patient did want to be discharged to spend time with family. She does have a history of a heart catheterization done in August 2006 that did not show any coronary artery disease. The BERTHA will be scheduled after 09/04/2017 and then she will probably get further referral from there. The patient is now feeling much better after a thoracentesis today and her breathing is well improved and she is ready to go home. She is still concerned about her back pain, wanted to try a different pain management doctor, so I will refer that as an outpatient as well and will have her follow up in my office with me and I will make sure that she gets her BERTHA done and gets her pain management scheduled. We also discharged her on 28 of Percocet until she gets in pain management as well as add albuterol nebulizer treatments. Also, for her mitral regurgitation, she was placed on Lasix 20 mg daily, Lopressor 12.5 mg twice a day, aspirin 81 mg daily and Mag-Ox 400 mg p.o. q.24 hours and potassium 20 mEq every day, and we will make sure we send her scripts through outpatient systems with those so that it is updated. PHYSICAL EXAMINATION: VITAL SIGNS: Temperature is 97.7, pulse is 76, respirations 18, blood pressure 107/77, 100% on room air. GENERAL: The patient is in no acute distress, alert and oriented x3. NECK: Supple. There is no JVD. LUNGS: Breath sounds are clear to auscultation bilaterally. CARDIAC: Regular rate and rhythm with no murmurs. EXTREMITIES: There is no edema or rash. DISPOSITION: Patient will be discharged home to see her family over the holidays. She should follow up with me within about a week or so, and I will have our office call for an appointment and make sure her medication list is updated and make sure that she gets her BERTHA scheduled as suggested by Dr. Cesar. I appreciate cardiology help in managing this patient. Dictated By: Carmen Ford MD 08/25/[id number] Dictated Date/Time: 08/17/17 1712 Transcribed Date/Time: 08/18/17 1302 Normal [facility] GRAM STAINon 08-17-2017 GRAM STAIN Gram Stn XXX: GRAM STAIN RESULT GRAM STAIN MADE FROM CONCENTRATED SPECIMEN MODERATE WBC's PRESENT/HPF NO BACTERIA SEEN/OIF Normal [facility] Comment on above: Performed By: #### C REAT-EGFR, SEC CALL ####Main Lab - [id number] [place] [address] HYPOCHROMASIAon 08-17-2017 HYPOCHROMASIA 1+ Abnormal [facility] Comment on above: Order Comment: @07/30: SMUDGE CELLS added. RFLXG = MORPH.@08/17/1751: GIANT PLATELETS added. RFLXG = MORPH.@08/17/1751: POLYCHROM added. RFLXG = MORPH.@08/17/1751: HYPERCHROM added. RFLXG = MORPH.@08/17/17650: HYPOCHROM added. RFLXG = MORPH.@08/17/1751: POIK added. RFLXG = MORPH.@08/17/17650: BASO STIP added. RFLXG = MORPH.@08/17/17650: ANISO added. RFLXG = MORPH.@08/17/17650: MICRO added. RFLXG = MORPH.@08/17/17650: MACRO added. RFLXG = MORPH.@08/17/17650: SPHERE added. RFLXG = MORPH.@08/17/17650: ELLIPTO added. RFLXG = MORPH.@08/17/17650: SIDEROCYTE added. RFLXG = MORPH.@08/17/17650: ADARSH BODIES added. RFLXG = MORPH.@08/17/1751: PELGER-HUET added. RFLXG = MORPH.@08/17/1751: ANA LILIA BODIES added. RFLXG = MORPH.@08/17/17650: SICKLE added. RFLXG = MORPH.@08/17/1751: TARGET added. RFLXG = MORPH.@08/17/1751: TEAR added. RFLXG = MORPH.@08/17/1751: OVAL added. RFLXG = MORPH.@08/17/17650: STOMATO added. RFLXG = MORPH.@08/17/1751: HELMET CELLS added. RFLXG = MORPH.@08/17/1751: HJ BODIES added. RFLXG = MORPH.@08/17/17650: TOXIC GRAN added. RFLXG = MORPH.@12/20/17 0651: TOXIC VAC added. RFLXG = MORPH.@08/17/1751: DOHLE BODIES added. RFLXG = MORPH.@08/17/17650: NIMISHA CELLS added. RFLXG = MORPH.@08/17/17650: CRENATED RBC added. RFLXG = MORPH.@08/17/17650: ACANTHO added. RFLXG = MORPH.@08/17/17650: ROLY RODS added. RFLXG = MORPH.@08/17/17650: ROULEAUX added. RFLXG = MORPH.@08/17/17650: SCHISTO added. RFLXG = MORPH.@08/17/17650: PARASITES added. RFLXG = MORPH. Performed By: #### C REAT-EGFR, SEC CALL ####Main Lab - [id number] [place], [place] [address] LACTATE DEHYDROGENASE (LDH)o n 08-17-2017 Lactate dehydrogenase (LDH) 253 U/L Low 313-618 [facility] Comment on above: Order Comment: Karlai rachel Instructions: draw within 30 minutes of the procedure Performed By: #### C REAT-EGFR, SEC CALL ####Main Lab - [id number] [place], [place] [address] MICROCYTOSISon 08-17-2017 MICROCYTOSIS 2+ Abnormal [facility] Comment on above: Order Comment: @07/30: SMUDGE CELLS added. RFLXG = MORPH.@08/17/17650: GIANT PLATELETS added. RFLXG = MORPH.@08/17/17650: POLYCHROM added. RFLXG = MORPH.@08/17/1751: HYPERCHROM added. RFLXG = MORPH.@08/17/17650: HYPOCHROM added. RFLXG = MORPH.@08/17/17650: POIK added. RFLXG = MORPH.@08/17/17650: BASO STIP added. RFLXG = MORPH.@08/17/1751: ANISO added. RFLXG = MORPH.@08/17/17650: MICRO added. RFLXG = MORPH.@08/17/17650: MACRO added. RFLXG = MORPH.@08/17/17650: SPHERE added. RFLXG = MORPH.@08/17/17650: ELLIPTO added. RFLXG = MORPH.@08/17/17650: SIDEROCYTE added. RFLXG = MORPH.@08/17/17650: ADARSH BODIES added. RFLXG = MORPH.@08/17/17650: PELGER-HUET added. RFLXG = MORPH.@08/17/17650: ANA LILIA BODIES added. RFLXG = MORPH.@08/17/17650: SICKLE added. RFLXG = MORPH.@08/17/17650: TARGET added. RFLXG = MORPH.@08/17/17650: TEAR added. RFLXG = MORPH.@08/17/17650: OVAL added. RFLXG = MORPH.@08/17/17650: STOMATO added. RFLXG = MORPH.@08/17/17650: HELMET CELLS added. RFLXG = MORPH.@08/17/17650: HJ BODIES added. RFLXG = MORPH.@08/17/17650: TOXIC GRAN added. RFLXG = MORPH.@08/17/17650: TOXIC VAC added. RFLXG = MORPH.@08/17/17650: DOHLE BODIES added. RFLXG = MORPH.@08/17/17650: NIMISHA CELLS added. RFLXG = MORPH.@08/17/17650: CRENATED RBC added. RFLXG = MORPH.@08/17/17650: ACANTHO added. RFLXG = MORPH.@08/17/17650: ROLY RODS added. RFLXG = MORPH.@08/17/17650: ROULEAUX added. RFLXG = MORPH.@08/17/17650: SCHISTO added. RFLXG = MORPH.@08/17/1751: PARASITES added. RFLXG = MORPH. Performed By: #### C REAT-EGFR, SEC CALL ####Main Lab - [id number] [place], [place] [address] OVALOCYTESon 08-17-2017 OVALOCYTES 1+ Normal [facility] Comment on above: Order Comment: @07/30: SMUDGE CELLS added. RFLXG = MORPH.@08/17/17650: GIANT PLATELETS added. RFLXG = MORPH.@08/17/17650: POLYCHROM added. RFLXG = MORPH.@08/17/17650: HYPERCHROM added. RFLXG = MORPH.@08/17/17650: HYPOCHROM added. RFLXG = MORPH.@08/17/17650: POIK added. RFLXG = MORPH.@08/17/17650: BASO STIP added. RFLXG = MORPH.@08/17/17650: ANISO added. RFLXG = MORPH.@08/17/17650: MICRO added. RFLXG = MORPH.@08/17/17650: MACRO added. RFLXG = MORPH.@08/17/17650: SPHERE added. RFLXG = MORPH.@08/17/17650: ELLIPTO added. RFLXG = MORPH.@08/17/17650: SIDEROCYTE added. RFLXG = MORPH.@08/17/17650: ADARSH BODIES added. RFLXG = MORPH.@08/17/17650: PELGER-HUET added. RFLXG = MORPH.@08/17/17650: ANA LILIA BODIES added. RFLXG = MORPH.@08/17/17650: SICKLE added. RFLXG = MORPH.@08/17/17650: TARGET added. RFLXG = MORPH.@08/17/17650: TEAR added. RFLXG = MORPH.@08/17/17650: OVAL added. RFLXG = MORPH.@08/17/17650: STOMATO added. RFLXG = MORPH.@08/17/17650: HELMET CELLS added. RFLXG = MORPH.@08/17/17650: HJ BODIES added. RFLXG = MORPH.@08/17/17650: TOXIC GRAN added. RFLXG = MORPH.@08/17/17650: TOXIC VAC added. RFLXG = MORPH.@12/20/17 0651: DOHLE BODIES added. RFLXG = MORPH.@08/17/17 0651: NIMISHA CELLS added. RFLXG = MORPH.@08/17/1751: CRENATED RBC added. RFLXG = MORPH.@08/17/1751: ACANTHO added. RFLXG = MORPH.@08/17/1751: ROLY RODS added. RFLXG = MORPH.@08/17/1751: ROULEAUX added. RFLXG = MORPH.@08/17/1751: SCHISTO added. RFLXG = MORPH.@08/17/1751: PARASITES added. RFLXG = MORPH. Performed By: #### C REAT-EGFR, SEC CALL ####Main Lab - [id number] [place], [place] [address] PH,PLEURAL FLUIDon 7 PH,PLEURAL FLUID 7.6 Units Normal [facility] Comment on above: Order Comment: @07/30 1147: PLF DIFF added. RFLXG = PLFCTDIFF. Performed By: #### C REAT-EGFR, SEC CALL ####Main Lab - [id number] [place], [place] [address] POIKILOCYTOSISon 08-17-2017 POIKILOCYTOSIS 1+ Abnormal [facility] Comment on above: Order Comment: @07/30: SMUDGE CELLS added. RFLXG = MORPH.@08/17/1751: GIANT PLATELETS added. RFLXG = MORPH.@08/17/1751: POLYCHROM added. RFLXG = MORPH.@08/17/1751: HYPERCHROM added. RFLXG = MORPH.@08/17/1751: HYPOCHROM added. RFLXG = MORPH.@08/17/1751: POIK added. RFLXG = MORPH.@08/17/1751: BASO STIP added. RFLXG = MORPH.@08/17/1751: ANISO added. RFLXG = MORPH.@08/17/1751: MICRO added. RFLXG = MORPH.@08/17/17650: MACRO added. RFLXG = MORPH.@08/17/17650: SPHERE added. RFLXG = MORPH.@08/17/17650: ELLIPTO added. RFLXG = MORPH.@08/17/17650: SIDEROCYTE added. RFLXG = MORPH.@08/17/17650: ADARSH BODIES added. RFLXG = MORPH.@08/17/17650: PELGER-HUET added. RFLXG = MORPH.@08/17/17650: ANA LILIA BODIES added. RFLXG = MORPH.@08/17/17650: SICKLE added. RFLXG = MORPH.@08/17/17650: TARGET added. RFLXG = MORPH.@08/17/17650: TEAR added. RFLXG = MORPH.@08/17/17650: OVAL added. RFLXG = MORPH.@08/17/17650: STOMATO added. RFLXG = MORPH.@08/17/17650: HELMET CELLS added. RFLXG = MORPH.@08/17/17650: HJ BODIES added. RFLXG = MORPH.@08/17/17650: TOXIC GRAN added. RFLXG = MORPH.@08/17/17650: TOXIC VAC added. RFLXG = MORPH.@08/17/17650: DOHLE BODIES added. RFLXG = MORPH.@08/17/17650: NIMISHA CELLS added. RFLXG = MORPH.@08/17/17650: CRENATED RBC added. RFLXG = MORPH.@08/17/17650: ACANTHO added. RFLXG = MORPH.@08/17/17650: ROLY RODS added. RFLXG = MORPH.@08/17/17650: ROULEAUX added. RFLXG = MORPH.@08/17/17650: SCHISTO added. RFLXG = MORPH.@08/17/17650: PARASITES added. RFLXG = MORPH. Performed By: #### C REAT-EGFR, SEC CALL ####Main Lab - [id number] [place], [place] [address] PROGRESS NOTEon 08-17-2017 PROGRESS NOTE [address] [place] [address] PROGRESS NOTE : [id number] Signed Name: BLAS LUJAN MRUN: [id number] : 1960 Loc: 3S Age / Sex: 57/ F Adm Status: ADM IN Adm Date:08/14/17 Room/Bed: [facility] DATE: 08/17/2017 SUBJECTIVE: Patient underwent thoracentesis today and is feeling a lot better. She would like to be discharged home. ECHO on 08/15/2017 revealed severe mitral regurgitation with prolapse of both her anterior and posterior leaflet of the mitral valve. Unfortunately, she is not a candidate for the mitral clipping because she is not considered high risk. She will need a BERTHA, which we will schedule after the holidays, and then I will subsequently refer her to CT surgeons for mitral valve repair. She did have a heart catheterization done on 09/08/2016 which revealed no CAD. ECHO at that time showed mild mitral regurgitation. MEDICATIONS: 1. Proventil. 2. DuoNeb. 3. Xanax. 4. Lasix. 5. Neurontin. 6. Zofran. 7. Protonix. 8. Advair Diskus. 9. Carafate. 10. Topamax. We will change her over to p.o. Lasix and Lopressor. PHYSICAL EXAMINATION: VITAL SIGNS: Temperature 97.6, pulse 78, respirations 18, blood pressure 114/78, SAT 98% on room air. LUNGS: Clear to auscultation. CARDIOVASCULAR: 2/6 systolic ejection murmur at the apex. ABDOMEN: Benign. EXTREMITIES: No edema. LABS: WBC 7.9, hemoglobin 9, hematocrit 27.8, platelets normal. Chem-7 normal except sodium of 134, potassium 3.4, bicarbonate 21, creatinine 0.71. ASSESSMENT: 1. Severe mitral regurgitation. We will start her on Lasix 20 mg p.o. daily, Lopressor 12.5 mg p.o. b.i.d., aspirin 81 mg p.o. every day, mag oxide 400 mg p.o. q24 hours, potassium 20 mEq p.o. every day. We will schedule her outpatient BERTHA after 09/04/2016 when she returns from her vacation, for severe MR for future MVR. 2. Hypokalemia. We will start her on potassium supplements. 3. Anemia. She has had an upper and lower GI in the past. 4. Chronic pain. Managed by PCP. Dictated By: Shea Cesar MD 08/17/17 1632 08/17/17 1632 Dictated Date/Time: 08/17/17 1217 Transcribed Date/Time: 08/17/17 1232 Normal [facility] TARGET CELLSon 08-17-2017 TARGET CELLS 1+ Abnormal [facility] Comment on above: Order Comment: @07/30 0651: SMUDGE CELLS added. RFLXG = MORPH.@08/17/17 0651: GIANT PLATELETS added. RFLXG = MORPH.@08/17/1751: POLYCHROM added. RFLXG = MORPH.@08/17/17 0651: HYPERCHROM added. RFLXG = MORPH.@08/17/1751: HYPOCHROM added. RFLXG = MORPH.@08/17/17 0651: POIK added. RFLXG = MORPH.@08/17/1751: BASO STIP added. RFLXG = MORPH.@08/17/17 0651: ANISO added. RFLXG = MORPH.@08/17/17 0651: MICRO added. RFLXG = MORPH.@08/17/1751: MACRO added. RFLXG = MORPH.@08/17/1751: SPHERE added. RFLXG = MORPH.@08/17/1751: ELLIPTO added. RFLXG = MORPH.@08/17/1751: SIDEROCYTE added. RFLXG = MORPH.@08/17/17 0651: ADARSH BODIES added. RFLXG = MORPH.@08/17/1751: PELGER-HUET added. RFLXG = MORPH.@08/17/1751: ANA LILIA BODIES added. RFLXG = MORPH.@08/17/1751: SICKLE added. RFLXG = MORPH.@08/17/1751: TARGET added. RFLXG = MORPH.@08/17/17 0651: TEAR added. RFLXG = MORPH.@08/17/17 0651: OVAL added. RFLXG = MORPH.@08/17/17 0651: STOMATO added. RFLXG = MORPH.@08/17/17 0651: HELMET CELLS added. RFLXG = MORPH.@08/17/17 0651: HJ BODIES added. RFLXG = MORPH.@08/17/17 0651: TOXIC GRAN added. RFLXG = MORPH.@08/17/17 0651: TOXIC VAC added. RFLXG = MORPH.@08/17/1751: DOHLE BODIES added. RFLXG = MORPH.@08/17/17 0651: NIMISHA CELLS added. RFLXG = MORPH.@08/17/17 0651: CRENATED RBC added. RFLXG = MORPH.@08/17/1751: ACANTHO added. RFLXG = MORPH.@08/17/1751: ROLY RODS added. RFLXG = MORPH.@08/17/1751: ROULEAUX added. RFLXG = MORPH.@08/17/1751: SCHISTO added. RFLXG = MORPH.@08/17/1751: PARASITES added. RFLXG = MORPH. Performed By: #### C REAT-EGFR, SEC CALL ####Main Lab - [id number] [place], [place] [address] TOTAL PROTEINon 08-17-2017 Protein 6.1 g/dL Low 6.3-8.2 [facility] Comment on above: Order Comment: Karlai rachel Instructions: draw within 30 minutes of the procedure Performed By: #### C REAT-EGFR, SEC CALL ####Main Lab - [id number] [place], [place] [address] US THORACENTESIS RIGHTon US THORACENTESIS RIGHT [facility] [address] [place], [place] [id number] Diagnostic Imaging Report : [id number] Signed Name: BLAS LUJAN MRUN: [id number] : 1960 Loc: 3S Age / Sex: 57 / F ADM Status: ADM IN ADM Date: 08/14/17 Room/Bed: [facility] Ordering Physician: Shea Cesar MD Procedure: US THORACENTESIS RIGHT Order Number(s): [id number] Ordered Date: 08/17/17 Ordered Time: 819 PROCEDURE: ULTRASOUNDGUIDED RIGHT THORACENTESIS 08/17/2017 HISTORY: pl effusion TECHNIQUE: Informed consent was obtained after a detailed explanation of the procedure including risks, benefits, and alternatives. Isle protocol was performed. The right chest was prepped and draped in sterile fashion and local anesthesia was achieved with lidocaine. A 6 Spanish needle sheath was advanced under ultrasound guidance into pleural effusion and thoracentesis was performed. The patient tolerated the procedure well. 860 mL serous appearing fluid removed from the right pleural space. Dressing applied the puncture site. FINDINGS: A total of 160 mL serous appearing fluid removed from right pleural space . IMPRESSION: Successful ultrasound guided right thoracentesis yielding 160 mL clear serous fluid. No residual pleural effusion or complication suggested. Dictated By: Awais Asencio DO Dictated Date/Time: 08/17/17908 Signed By: Awais Asencio DO Signed Date/Time: 08/17/17913 Transcribed Date/Time: 08/17/17909 Normal [facility] XR CHEST, ONE VIEWon 017 XR CHEST, ONE VIEW [facility] [address] [place] [address] Diagnostic Imaging Report : [id number] S[id number] MRUN: [id number] : 1960 Loc: 3S Age / Sex: 57 / F ADM Status: ADM IN ADM Date: 08/14/17 Room/Bed: [facility] Ordering Physician: Tucker Horton MD Procedure: XR CHEST, ONE VIEW Order Number(s): [id number] Ordered Date: 08/17/17 Ordered Time: 08 EXAMINATION: SINGLE VIEW OF THE CHEST 08/17/2017 8:50 am COMPARISON: Portable chest 08/04/2017 HISTORY: RIGHT PLEURAL EFFUSION FINDINGS: Stable cardiomegaly and central pulmonary vascular prominence consistent with congestive heart failure. No acute pulmonary consolidation, pleural effusion, pneumothorax, procedure related complication. IMPRESSION: Cardiomegaly and central pulmonary vascular prominence consistent congestive heart failure. No portable radiographic evidence of residual right pleural effusion or thoracentesis related complication. Dictated By: Awais Asencio DO Dictated Date/Time: 08/17/17909 Signed By: Awais Asencio DO Signed Date/Time: 08/17/17914 Transcribed Date/Time: 08/17/17910 Normal [facility] ANISOCYTOSISon 08-16-2017 Anisocytosis presence 2+ Abnormal [facility] Comment on above: Order Comment: @07/29 05/15 0639: SMUDGE CELLS added. RFLXG = MORPH.@08/16/17 0639: GIANT PLATELETS added. RFLXG = MORPH.@08/16/17 0639: POLYCHROM added. RFLXG = MORPH.@08/16/17 0639: HYPERCHROM added. RFLXG = MORPH.@08/16/1739: HYPOCHROM added. RFLXG = MORPH.@08/16/17 0639: POIK added. RFLXG = MORPH.@08/16/17 0639: BASO STIP added. RFLXG = MORPH.@08/16/17 0639: ANISO added. RFLXG = MORPH.@08/16/17 0639: MICRO added. RFLXG = MORPH.@08/16/17 0639: MACRO added. RFLXG = MORPH.@08/16/17 0639: SPHERE added. RFLXG = MORPH.@08/16/17 0639: ELLIPTO added. RFLXG = MORPH.@08/16/17 0639: SIDEROCYTE added. RFLXG = MORPH.@08/16/1739: ADARSH BODIES added. RFLXG = MORPH.@08/16/17 0639: PELGER-HUET added. RFLXG = MORPH.@08/16/17 0639: ANA LILIA BODIES added. RFLXG = MORPH.@08/16/17 0639: SICKLE added. RFLXG = MORPH.@08/16/17 0639: TARGET added. RFLXG = MORPH.@08/16/17 0639: TEAR added. RFLXG = MORPH.@08/16/17 0639: OVAL added. RFLXG = MORPH.@08/16/17 0639: STOMATO added. RFLXG = MORPH.@08/16/17 0639: HELMET CELLS added. RFLXG = MORPH.@08/16/17 0639: HJ BODIES added. RFLXG = MORPH.@08/16/17 0639: TOXIC GRAN added. RFLXG = MORPH.@08/16/17 0639: TOXIC VAC added. RFLXG = MORPH.@08/16/17 0639: DOHLE BODIES added. RFLXG = MORPH.@08/16/17 0639: NIMISHA CELLS added. RFLXG = MORPH.@08/16/17 0639: CRENATED RBC added. RFLXG = MORPH.@08/16/17 0639: ACANTHO added. RFLXG = MORPH.@08/16/17 0639: ROLY RODS added. RFLXG = MORPH.@08/16/1739: ROULEAUX added. RFLXG = MORPH.@08/16/17 0639: SCHISTO added. RFLXG = MORPH.@08/16/17 0639: PARASITES added. RFLXG = MORPH. Performed By: #### C MP, PT, CBC, PTT, ESR, CPK 1, CKMB 1, TROP 1, ST OCC BLD ####[facility] - [id number] [place], [place] [address] BASIC METABOLIC PANELon 12- Anion gap 13 mmol/L Normal -18 [facility] Comment on above: Performed By: #### C MP, PT, CBC, PTT, ESR, CPK 1, CKMB 1, TROP 1, ST OCC BLD ####Main Lab - [id number] [place], [place] [address] BUN (urea nitrogen) 26 mg/dL High 7- [facility] Comment on above: Performed By: #### C MP, PT, CBC, PTT, ESR, CPK 1, CKMB 1, TROP 1, ST OCC BLD ####Main Lab - [id number] [place], [place] [address] BUN/Creatinine Ratio 29.9 Ratio Normal 5.0-42.0 [facility] Comment on above: Performed By: #### C MP, PT, CBC, PTT, ESR, CPK 1, CKMB 1, TROP 1, ST OCC BLD ####Main Lab - [id number] [place] [address] Calcium 8.3 mg/dL Low 8.4-10.2 [facility] Comment on above: Performed By: #### C MP, PT, CBC, PTT, ESR, CPK 1, CKMB 1, TROP 1, ST OCC BLD ####Main Lab - [id number] [place] [address] Chloride 105 mmol/L Normal 98-107 [facility] Comment on above: Performed By: #### C MP, PT, CBC, PTT, ESR, CPK 1, CKMB 1, TROP 1, ST OCC BLD ####Main Lab - [id number] [place] [address] CO2 18 mmol/L Low 22-31 [facility] Comment on above: Performed By: #### C MP, PT, CBC, PTT, ESR, CPK 1, CKMB 1, TROP 1, ST OCC BLD ####Main Lab - [id number] [place] [address] Creatinine 58.31 mg/dL Normal [facility] Comment on above: Result Comment: COCK CROFT-GAULT FORMULA 1972 Performed By: #### C MP, PT, CBC, PTT, ESR, CPK 1, CKMB 1, TROP 1, ST OCC BLD ####Main Lab - [id number] [place] [address] Creatinine 0.87 mg/dL Normal 0.80-1.30 [facility] Comment on above: Performed By: #### C MP, PT, CBC, PTT, ESR, CPK 1, CKMB 1, TROP 1, ST OCC BLD ####Main Lab - [id number] [place] [address] eGFR (non-black) mL/min/{1.73_m2} Normal [facility] Comment on above: Performed By: #### C MP, PT, CBC, PTT, ESR, CPK 1, CKMB 1, TROP 1, ST OCC BLD ####Main Lab - [id number] [place] [address] Glucose mass conc 90 mg/dL Normal 70-99 [facility] Comment on above: Result Comment: The glucose range is based on recommendations from theAmerican Diabetes Association for fasting blood glucoserange. Performed By: #### C MP, PT, CBC, PTT, ESR, CPK 1, CKMB 1, TROP 1, ST OCC BLD ####Main Lab - [id number] [place] [address] Potassium molar conc 3.8 mmol/L Normal 3.6-5.0 [facility] Comment on above: Result Comment: Inco nsisitent with previous results. Performed By: #### C MP, PT, CBC, PTT, ESR, CPK 1, CKMB 1, TROP 1, ST OCC BLD ####Main Lab - [id number] [place] [address] Sodium 132 mmol/L Low 137-145 [facility] Comment on above: Performed By: #### C MP, PT, CBC, PTT, ESR, CPK 1, CKMB 1, TROP 1, ST OCC BLD ####Main Lab - [id number] [place] [address] Age 57 Years Normal [facility] Comment on above: Performed By: #### C MP, PT, CBC, PTT, ESR, CPK 1, CKMB 1, TROP 1, ST OCC BLD ####Main Lab - [id number] [place] [address] CARDIAC ENZYMESon 08-16-2017 CKMB 9.7 ng/mL High 0.0-3.7 [facility] Comment on above: Performed By: #### C MP, PT, CBC, PTT, ESR, CPK 1, CKMB 1, TROP 1, ST OCC BLD ####Main Lab - [id number] [place] [address] Creatine kinase (CK) 109 U/L Normal 55-170 [facility] Comment on above: Performed By: #### C MP, PT, CBC, PTT, ESR, CPK 1, CKMB 1, TROP 1, ST OCC BLD ####Main Lab - [id number] [place] [address] Troponin I.cardiac mass conc 0.03 ng/mL Normal 0.0-0.03 [facility] Comment on above: Result Comment: Refe rence Interval < or = 0.03 ng/mLClinical Correlation Needed 0.03 - 0.12 ng/mLAMI Cutoff, Presumptive = or > 0.12 ng/mL Performed By: #### C MP, PT, CBC, PTT, ESR, CPK 1, CKMB 1, TROP 1, ST OCC BLD ####Main Lab - [id number] [place], [place] [address] CKMB 11.5 ng/mL Critically high 0.0-3.7 [facility] Comment on above: Result Comment: Crit ical Result CKMB: Called to: MARIELENA VILLEGAS RN at:23:41:15 by:RENETTA Read back by:MARIELENA VILLEGAS RN Performed By: #### C MP, PT, CBC, PTT, ESR, CPK 1, CKMB 1, TROP 1, ST OCC BLD ####Main Lab - [id number] [place], [place] [address] Creatine kinase (CK) 145 U/L Normal 55-170 [facility] Comment on above: Performed By: #### C MP, PT, CBC, PTT, ESR, CPK 1, CKMB 1, TROP 1, ST OCC BLD ####Main Lab - [id number] [place], [place] [address] Troponin I.cardiac mass conc 0.04 ng/mL High 0.0-0.03 [facility] Comment on above: Result Comment: Refe rence Interval < or = 0.03 ng/mLClinical Correlation Needed 0.03 - 0.12 ng/mLAMI Cutoff, Presumptive = or > 0.12 ng/mL Performed By: #### C MP, PT, CBC, PTT, ESR, CPK 1, CKMB 1, TROP 1, ST OCC BLD ####Main Lab - [id number] [place], [place] [address] CBC WITH AUTO DIFFon 017 Basophils Auto #/vol (Bld) 0.1 10 3/uL Normal 0.0-0.2 [facility] Comment on above: Order Comment: @07/29 05/15 0639: SMUDGE CELLS added. RFLXG = MORPH.@08/16/17 0639: GIANT PLATELETS added. RFLXG = MORPH.@08/16/17 0639: POLYCHROM added. RFLXG = MORPH.@08/16/1739: HYPERCHROM added. RFLXG = MORPH.@08/16/1739: HYPOCHROM added. RFLXG = MORPH.@08/16/1739: POIK added. RFLXG = MORPH.@08/16/1739: BASO STIP added. RFLXG = MORPH.@08/16/1739: ANISO added. RFLXG = MORPH.@08/16/17 0639: MICRO added. RFLXG = MORPH.@08/16/1739: MACRO added. RFLXG = MORPH.@08/16/1739: SPHERE added. RFLXG = MORPH.@08/16/1739: ELLIPTO added. RFLXG = MORPH.@08/16/1739: SIDEROCYTE added. RFLXG = MORPH.@08/16/1739: ADARSH BODIES added. RFLXG = MORPH.@08/16/1739: PELGER-HUET added. RFLXG = MORPH.@08/16/1739: ANA LILIA BODIES added. RFLXG = MORPH.@08/16/1739: SICKLE added. RFLXG = MORPH.@08/16/1739: TARGET added. RFLXG = MORPH.@08/16/1739: TEAR added. RFLXG = MORPH.@08/16/1739: OVAL added. RFLXG = MORPH.@08/16/1739: STOMATO added. RFLXG = MORPH.@08/16/1739: HELMET CELLS added. RFLXG = MORPH.@08/16/1739: HJ BODIES added. RFLXG = MORPH.@08/16/1739: TOXIC GRAN added. RFLXG = MORPH.@08/16/1739: TOXIC VAC added. RFLXG = MORPH.@08/16/1739: DOHLE BODIES added. RFLXG = MORPH.@08/16/1739: NIMISHA CELLS added. RFLXG = MORPH.@08/16/1739: CRENATED RBC added. RFLXG = MORPH.@08/16/17 0639: ACANTHO added. RFLXG = MORPH.@08/16/1739: ROLY RODS added. RFLXG = MORPH.@08/16/1739: ROULEAUX added. RFLXG = MORPH.@08/16/1739: SCHISTO added. RFLXG = MORPH.@08/16/17 0639: PARASITES added. RFLXG = MORPH. Performed By: #### C MP, PT, CBC, PTT, ESR, CPK 1, CKMB 1, TROP 1, ST OCC BLD ####Main Lab - [id number] [place], [place] [address] Basophils/100 WBC Auto (Bld) 0.6 % Normal 0.0-1.0 [facility] Comment on above: Order Comment: @07/29: SMUDGE CELLS added. RFLXG = MORPH.@08/16/1739: GIANT PLATELETS added. RFLXG = MORPH.@08/16/1739: POLYCHROM added. RFLXG = MORPH.@08/16/1739: HYPERCHROM added. RFLXG = MORPH.@08/16/1739: HYPOCHROM added. RFLXG = MORPH.@08/16/1739: POIK added. RFLXG = MORPH.@08/16/1739: BASO STIP added. RFLXG = MORPH.@08/16/17 0639: ANISO added. RFLXG = MORPH.@08/16/1739: MICRO added. RFLXG = MORPH.@08/16/1739: MACRO added. RFLXG = MORPH.@08/16/1739: SPHERE added. RFLXG = MORPH.@08/16/1739: ELLIPTO added. RFLXG = MORPH.@08/16/1739: SIDEROCYTE added. RFLXG = MORPH.@08/16/1739: ADARSH BODIES added. RFLXG = MORPH.@08/16/1739: PELGER-HUET added. RFLXG = MORPH.@08/16/1739: ANA LILIA BODIES added. RFLXG = MORPH.@08/16/17 0639: SICKLE added. RFLXG = MORPH.@08/16/17 0639: TARGET added. RFLXG = MORPH.@08/16/17 0639: TEAR added. RFLXG = MORPH.@08/16/17 0639: OVAL added. RFLXG = MORPH.@08/16/17 0639: STOMATO added. RFLXG = MORPH.@08/16/17 0639: HELMET CELLS added. RFLXG = MORPH.@08/16/17 0639: HJ BODIES added. RFLXG = MORPH.@08/16/17 0639: TOXIC GRAN added. RFLXG = MORPH.@08/16/1739: TOXIC VAC added. RFLXG = MORPH.@08/16/1739: DOHLE BODIES added. RFLXG = MORPH.@08/16/1739: NIMISHA CELLS added. RFLXG = MORPH.@08/16/1739: CRENATED RBC added. RFLXG = MORPH.@08/16/17 0639: ACANTHO added. RFLXG = MORPH.@08/16/17 0639: ROLY RODS added. RFLXG = MORPH.@08/16/1739: ROULEAUX added. RFLXG = MORPH.@08/16/1739: SCHISTO added. RFLXG = MORPH.@08/16/17 0639: PARASITES added. RFLXG = MORPH. Performed By: #### C MP, PT, CBC, PTT, ESR, CPK 1, CKMB 1, TROP 1, ST OCC BLD ####Main Lab - [id number] [place], [place] [address] Eosinophils 0.3 10 3/uL Normal 0.0-0.7 [facility] Comment on above: Order Comment: @07/29: SMUDGE CELLS added. RFLXG = MORPH.@08/16/17 0639: GIANT PLATELETS added. RFLXG = MORPH.@08/16/17 0639: POLYCHROM added. RFLXG = MORPH.@08/16/1739: HYPERCHROM added. RFLXG = MORPH.@08/16/17 0639: HYPOCHROM added. RFLXG = MORPH.@08/16/17 0639: POIK added. RFLXG = MORPH.@08/16/17 0639: BASO STIP added. RFLXG = MORPH.@08/16/1739: ANISO added. RFLXG = MORPH.@08/16/17 0639: MICRO added. RFLXG = MORPH.@08/16/17 0639: MACRO added. RFLXG = MORPH.@08/16/17 0639: SPHERE added. RFLXG = MORPH.@08/16/17 0639: ELLIPTO added. RFLXG = MORPH.@08/16/1739: SIDEROCYTE added. RFLXG = MORPH.@08/16/1739: ADARSH BODIES added. RFLXG = MORPH.@08/16/1739: PELGER-HUET added. RFLXG = MORPH.@08/16/1739: ANA LILIA BODIES added. RFLXG = MORPH.@08/16/17 0639: SICKLE added. RFLXG = MORPH.@08/16/1739: TARGET added. RFLXG = MORPH.@08/16/17 0639: TEAR added. RFLXG = MORPH.@08/16/1739: OVAL added. RFLXG = MORPH.@08/16/1739: STOMATO added. RFLXG = MORPH.@08/16/1739: HELMET CELLS added. RFLXG = MORPH.@08/16/1739: HJ BODIES added. RFLXG = MORPH.@08/16/1739: TOXIC GRAN added. RFLXG = MORPH.@08/16/17 0639: TOXIC VAC added. RFLXG = MORPH.@08/16/1739: DOHLE BODIES added. RFLXG = MORPH.@08/16/1739: NIMISHA CELLS added. RFLXG = MORPH.@08/16/1739: CRENATED RBC added. RFLXG = MORPH.@08/16/1739: ACANTHO added. RFLXG = MORPH.@08/16/1739: ROLY RODS added. RFLXG = MORPH.@08/16/1739: ROULEAUX added. RFLXG = MORPH.@08/16/17 0639: SCHISTO added. RFLXG = MORPH.@08/16/17638: PARASITES added. RFLXG = MORPH. Performed By: #### C MP, PT, CBC, PTT, ESR, CPK 1, CKMB 1, TROP 1, ST OCC BLD ####Main Lab - [id number] [place], [place] [address] Eosinophils/100 leukocytes 2.9 % Normal 0.0-5.0 [facility] Comment on above: Order Comment: @07/29: SMUDGE CELLS added. RFLXG = MORPH.@08/16/17638: GIANT PLATELETS added. RFLXG = MORPH.@08/16/17638: POLYCHROM added. RFLXG = MORPH.@08/16/17638: HYPERCHROM added. RFLXG = MORPH.@08/16/17638: HYPOCHROM added. RFLXG = MORPH.@08/16/17638: POIK added. RFLXG = MORPH.@08/16/1739: BASO STIP added. RFLXG = MORPH.@08/16/1739: ANISO added. RFLXG = MORPH.@08/16/17638: MICRO added. RFLXG = MORPH.@08/16/1739: MACRO added. RFLXG = MORPH.@08/16/1739: SPHERE added. RFLXG = MORPH.@08/16/1739: ELLIPTO added. RFLXG = MORPH.@08/16/1739: SIDEROCYTE added. RFLXG = MORPH.@08/16/1739: ADARSH BODIES added. RFLXG = MORPH.@08/16/1739: PELGER-HUET added. RFLXG = MORPH.@08/16/17638: ANA LILIA BODIES added. RFLXG = MORPH.@08/16/1739: SICKLE added. RFLXG = MORPH.@08/16/1739: TARGET added. RFLXG = MORPH.@08/16/1739: TEAR added. RFLXG = MORPH.@12/19/17 0639: OVAL added. RFLXG = MORPH.@08/16/17 0639: STOMATO added. RFLXG = MORPH.@08/16/1739: HELMET CELLS added. RFLXG = MORPH.@08/16/17 0639: HJ BODIES added. RFLXG = MORPH.@08/16/1739: TOXIC GRAN added. RFLXG = MORPH.@08/16/1739: TOXIC VAC added. RFLXG = MORPH.@08/16/1739: DOHLE BODIES added. RFLXG = MORPH.@08/16/1739: NIMISHA CELLS added. RFLXG = MORPH.@08/16/17638: CRENATED RBC added. RFLXG = MORPH.@08/16/17638: ACANTHO added. RFLXG = MORPH.@08/16/17638: ROLY RODS added. RFLXG = MORPH.@08/16/17638: ROULEAUX added. RFLXG = MORPH.@08/16/17638: SCHISTO added. RFLXG = MORPH.@08/16/17638: PARASITES added. RFLXG = MORPH. Performed By: #### C MP, PT, CBC, PTT, ESR, CPK 1, CKMB 1, TROP 1, ST OCC BLD ####Main Lab - [id number] [place], [place] [address] Lymphocytes 1.8 10 3/uL Normal 1.0-3.5 [facility] Comment on above: Order Comment: @07/29: SMUDGE CELLS added. RFLXG = MORPH.@08/16/1739: GIANT PLATELETS added. RFLXG = MORPH.@08/16/1739: POLYCHROM added. RFLXG = MORPH.@08/16/1739: HYPERCHROM added. RFLXG = MORPH.@08/16/1739: HYPOCHROM added. RFLXG = MORPH.@08/16/1739: POIK added. RFLXG = MORPH.@08/16/1739: BASO STIP added. RFLXG = MORPH.@08/16/1739: ANISO added. RFLXG = MORPH.@08/16/17 0639: MICRO added. RFLXG = MORPH.@08/16/1739: MACRO added. RFLXG = MORPH.@08/16/1739: SPHERE added. RFLXG = MORPH.@08/16/1739: ELLIPTO added. RFLXG = MORPH.@08/16/1739: SIDEROCYTE added. RFLXG = MORPH.@08/16/1739: ADARSH BODIES added. RFLXG = MORPH.@08/16/1739: PELGER-HUET added. RFLXG = MORPH.@08/16/1739: ANA LILIA BODIES added. RFLXG = MORPH.@08/16/17638: SICKLE added. RFLXG = MORPH.@08/16/1739: TARGET added. RFLXG = MORPH.@08/16/1739: TEAR added. RFLXG = MORPH.@08/16/17638: OVAL added. RFLXG = MORPH.@08/16/1739: STOMATO added. RFLXG = MORPH.@08/16/1739: HELMET CELLS added. RFLXG = MORPH.@08/16/1739: HJ BODIES added. RFLXG = MORPH.@08/16/1739: TOXIC GRAN added. RFLXG = MORPH.@08/16/1739: TOXIC VAC added. RFLXG = MORPH.@08/16/1739: DOHLE BODIES added. RFLXG = MORPH.@08/16/1739: NIMISHA CELLS added. RFLXG = MORPH.@08/16/1739: CRENATED RBC added. RFLXG = MORPH.@08/16/1739: ACANTHO added. RFLXG = MORPH.@08/16/1739: ROLY RODS added. RFLXG = MORPH.@08/16/1739: ROULEAUX added. RFLXG = MORPH.@08/16/1739: SCHISTO added. RFLXG = MORPH.@08/16/1739: PARASITES added. RFLXG = MORPH. Performed By: #### C MP, PT, CBC, PTT, ESR, CPK 1, CKMB 1, TROP 1, ST OCC BLD ####Main Lab - [id number] [place], [place] [address] Lymphocytes/100 leukocytes 20.3 % Low 24.0-44.0 [facility] Comment on above: Order Comment: @07/29 05/15 06: SMUDGE CELLS added. RFLXG = MORPH.@08/16/17 0639: GIANT PLATELETS added. RFLXG = MORPH.@08/16/17 0639: POLYCHROM added. RFLXG = MORPH.@08/16/17 0639: HYPERCHROM added. RFLXG = MORPH.@08/16/1739: HYPOCHROM added. RFLXG = MORPH.@08/16/1739: POIK added. RFLXG = MORPH.@08/16/1739: BASO STIP added. RFLXG = MORPH.@08/16/17 0639: ANISO added. RFLXG = MORPH.@08/16/17 0639: MICRO added. RFLXG = MORPH.@08/16/17 0639: MACRO added. RFLXG = MORPH.@08/16/17 0639: SPHERE added. RFLXG = MORPH.@08/16/1739: ELLIPTO added. RFLXG = MORPH.@08/16/1739: SIDEROCYTE added. RFLXG = MORPH.@08/16/1739: ADARSH BODIES added. RFLXG = MORPH.@08/16/1739: PELGER-HUET added. RFLXG = MORPH.@08/16/1739: ANA LILIA BODIES added. RFLXG = MORPH.@08/16/17 0639: SICKLE added. RFLXG = MORPH.@08/16/17 0639: TARGET added. RFLXG = MORPH.@08/16/1739: TEAR added. RFLXG = MORPH.@08/16/1739: OVAL added. RFLXG = MORPH.@08/16/17 0639: STOMATO added. RFLXG = MORPH.@08/16/17 0639: HELMET CELLS added. RFLXG = MORPH.@08/16/17 0639: HJ BODIES added. RFLXG = MORPH.@08/16/17 0639: TOXIC GRAN added. RFLXG = MORPH.@08/16/1739: TOXIC VAC added. RFLXG = MORPH.@08/16/17638: DOHLE BODIES added. RFLXG = MORPH.@08/16/1739: NIMISHA CELLS added. RFLXG = MORPH.@08/16/17638: CRENATED RBC added. RFLXG = MORPH.@08/16/1739: ACANTHO added. RFLXG = MORPH.@08/16/1739: ROLY RODS added. RFLXG = MORPH.@08/16/17638: ROULEAUX added. RFLXG = MORPH.@08/16/17638: SCHISTO added. RFLXG = MORPH.@08/16/17638: PARASITES added. RFLXG = MORPH. Performed By: #### C MP, PT, CBC, PTT, ESR, CPK 1, CKMB 1, TROP 1, ST OCC BLD ####Main Lab - [id number] [place], [place] [address] Monocytes 1.2 10 3/uL High 0.2-0.8 [facility] Comment on above: Order Comment: @07/29: SMUDGE CELLS added. RFLXG = MORPH.@08/16/17638: GIANT PLATELETS added. RFLXG = MORPH.@08/16/1739: POLYCHROM added. RFLXG = MORPH.@08/16/17638: HYPERCHROM added. RFLXG = MORPH.@08/16/1739: HYPOCHROM added. RFLXG = MORPH.@08/16/1739: POIK added. RFLXG = MORPH.@08/16/1739: BASO STIP added. RFLXG = MORPH.@08/16/17638: ANISO added. RFLXG = MORPH.@08/16/1739: MICRO added. RFLXG = MORPH.@08/16/1739: MACRO added. RFLXG = MORPH.@08/16/17638: SPHERE added. RFLXG = MORPH.@12/19/17 0639: ELLIPTO added. RFLXG = MORPH.@08/16/17 0639: SIDEROCYTE added. RFLXG = MORPH.@08/16/1739: ADARSH BODIES added. RFLXG = MORPH.@08/16/17 0639: PELGER-HUET added. RFLXG = MORPH.@08/16/17 0639: ANA LILIA BODIES added. RFLXG = MORPH.@08/16/17 0639: SICKLE added. RFLXG = MORPH.@08/16/17 0639: TARGET added. RFLXG = MORPH.@08/16/17 0639: TEAR added. RFLXG = MORPH.@08/16/1739: OVAL added. RFLXG = MORPH.@08/16/1739: STOMATO added. RFLXG = MORPH.@08/16/1739: HELMET CELLS added. RFLXG = MORPH.@08/16/17 0639: HJ BODIES added. RFLXG = MORPH.@08/16/1739: TOXIC GRAN added. RFLXG = MORPH.@08/16/17 0639: TOXIC VAC added. RFLXG = MORPH.@08/16/17 0639: DOHLE BODIES added. RFLXG = MORPH.@08/16/1739: NIMISHA CELLS added. RFLXG = MORPH.@08/16/1739: CRENATED RBC added. RFLXG = MORPH.@08/16/17 0639: ACANTHO added. RFLXG = MORPH.@08/16/1739: ROLY RODS added. RFLXG = MORPH.@08/16/17 0639: ROULEAUX added. RFLXG = MORPH.@08/16/17 0639: SCHISTO added. RFLXG = MORPH.@08/16/1739: PARASITES added. RFLXG = MORPH. Performed By: #### C MP, PT, CBC, PTT, ESR, CPK 1, CKMB 1, TROP 1, ST OCC BLD ####Main Lab - [id number] [place], [place] [address] Monocytes/100 leukocytes 12.9 % High 1.7-9.3 [facility] Comment on above: Order Comment: @07/29: SMUDGE CELLS added. RFLXG = MORPH.@08/16/17 0639: GIANT PLATELETS added. RFLXG = MORPH.@08/16/1739: POLYCHROM added. RFLXG = MORPH.@08/16/17 0639: HYPERCHROM added. RFLXG = MORPH.@08/16/17 0639: HYPOCHROM added. RFLXG = MORPH.@08/16/1739: POIK added. RFLXG = MORPH.@08/16/17 0639: BASO STIP added. RFLXG = MORPH.@08/16/17 0639: ANISO added. RFLXG = MORPH.@08/16/1739: MICRO added. RFLXG = MORPH.@08/16/1739: MACRO added. RFLXG = MORPH.@08/16/1739: SPHERE added. RFLXG = MORPH.@08/16/1739: ELLIPTO added. RFLXG = MORPH.@08/16/1739: SIDEROCYTE added. RFLXG = MORPH.@08/16/1739: ADARSH BODIES added. RFLXG = MORPH.@08/16/1739: PELGER-HUET added. RFLXG = MORPH.@08/16/1739: ANA LILIA BODIES added. RFLXG = MORPH.@08/16/17 0639: SICKLE added. RFLXG = MORPH.@08/16/17 0639: TARGET added. RFLXG = MORPH.@08/16/1739: TEAR added. RFLXG = MORPH.@08/16/17 0639: OVAL added. RFLXG = MORPH.@08/16/17 0639: STOMATO added. RFLXG = MORPH.@08/16/1739: HELMET CELLS added. RFLXG = MORPH.@08/16/1739: HJ BODIES added. RFLXG = MORPH.@08/16/1739: TOXIC GRAN added. RFLXG = MORPH.@08/16/17 0639: TOXIC VAC added. RFLXG = MORPH.@08/16/17 0639: DOHLE BODIES added. RFLXG = MORPH.@08/16/1739: NIMISHA CELLS added. RFLXG = MORPH.@08/16/17638: CRENATED RBC added. RFLXG = MORPH.@08/16/17638: ACANTHO added. RFLXG = MORPH.@08/16/1739: ROLY RODS added. RFLXG = MORPH.@08/16/1739: ROULEAUX added. RFLXG = MORPH.@08/16/17638: SCHISTO added. RFLXG = MORPH.@08/16/17638: PARASITES added. RFLXG = MORPH. Performed By: #### C MP, PT, CBC, PTT, ESR, CPK 1, CKMB 1, TROP 1, ST OCC BLD ####Main Lab - [id number] [place], [place] [address] Neutrophils 5.7 10 3/uL Normal 1.5-6.7 [facility] Comment on above: Order Comment: @07/29: SMUDGE CELLS added. RFLXG = MORPH.@08/16/17638: GIANT PLATELETS added. RFLXG = MORPH.@08/16/17638: POLYCHROM added. RFLXG = MORPH.@08/16/17638: HYPERCHROM added. RFLXG = MORPH.@08/16/1739: HYPOCHROM added. RFLXG = MORPH.@08/16/1739: POIK added. RFLXG = MORPH.@08/16/1739: BASO STIP added. RFLXG = MORPH.@08/16/1739: ANISO added. RFLXG = MORPH.@08/16/1739: MICRO added. RFLXG = MORPH.@08/16/1739: MACRO added. RFLXG = MORPH.@08/16/17638: SPHERE added. RFLXG = MORPH.@08/16/1739: ELLIPTO added. RFLXG = MORPH.@08/16/1739: SIDEROCYTE added. RFLXG = MORPH.@08/16/1739: ADARSH BODIES added. RFLXG = MORPH.@08/16/17638: PELGER-HUET added. RFLXG = MORPH.@08/16/17 0639: ANA LILIA BODIES added. RFLXG = MORPH.@08/16/17 0639: SICKLE added. RFLXG = MORPH.@08/16/17 0639: TARGET added. RFLXG = MORPH.@08/16/17 0639: TEAR added. RFLXG = MORPH.@08/16/1739: OVAL added. RFLXG = MORPH.@08/16/17 0639: STOMATO added. RFLXG = MORPH.@08/16/17 0639: HELMET CELLS added. RFLXG = MORPH.@08/16/1739: HJ BODIES added. RFLXG = MORPH.@08/16/1739: TOXIC GRAN added. RFLXG = MORPH.@08/16/1739: TOXIC VAC added. RFLXG = MORPH.@08/16/1739: DOHLE BODIES added. RFLXG = MORPH.@08/16/1739: NIMISHA CELLS added. RFLXG = MORPH.@08/16/1739: CRENATED RBC added. RFLXG = MORPH.@08/16/1739: ACANTHO added. RFLXG = MORPH.@08/16/1739: ROLY RODS added. RFLXG = MORPH.@08/16/1739: ROULEAUX added. RFLXG = MORPH.@08/16/1739: SCHISTO added. RFLXG = MORPH.@08/16/1739: PARASITES added. RFLXG = MORPH. Performed By: #### C MP, PT, CBC, PTT, ESR, CPK 1, CKMB 1, TROP 1, ST OCC BLD ####Main Lab - [id number] [place], [place] [address] Segmented Neutrophils/100 leukocytes 63.3 % Normal 36.0-66.0 [facility] Comment on above: Order Comment: @07/29: SMUDGE CELLS added. RFLXG = MORPH.@08/16/1739: GIANT PLATELETS added. RFLXG = MORPH.@08/16/1739: POLYCHROM added. RFLXG = MORPH.@08/16/17 0639: HYPERCHROM added. RFLXG = MORPH.@08/16/1739: HYPOCHROM added. RFLXG = MORPH.@08/16/17 0639: POIK added. RFLXG = MORPH.@08/16/1739: BASO STIP added. RFLXG = MORPH.@08/16/17 0639: ANISO added. RFLXG = MORPH.@08/16/17 0639: MICRO added. RFLXG = MORPH.@08/16/17 0639: MACRO added. RFLXG = MORPH.@08/16/1739: SPHERE added. RFLXG = MORPH.@08/16/1739: ELLIPTO added. RFLXG = MORPH.@08/16/1739: SIDEROCYTE added. RFLXG = MORPH.@08/16/1739: ADARSH BODIES added. RFLXG = MORPH.@08/16/1739: PELGER-HUET added. RFLXG = MORPH.@08/16/1739: ANA LILIA BODIES added. RFLXG = MORPH.@08/16/1739: SICKLE added. RFLXG = MORPH.@08/16/1739: TARGET added. RFLXG = MORPH.@08/16/1739: TEAR added. RFLXG = MORPH.@08/16/1739: OVAL added. RFLXG = MORPH.@08/16/17 0639: STOMATO added. RFLXG = MORPH.@08/16/1739: HELMET CELLS added. RFLXG = MORPH.@08/16/1739: HJ BODIES added. RFLXG = MORPH.@08/16/1739: TOXIC GRAN added. RFLXG = MORPH.@08/16/1739: TOXIC VAC added. RFLXG = MORPH.@08/16/1739: DOHLE BODIES added. RFLXG = MORPH.@08/16/1739: NIMISHA CELLS added. RFLXG = MORPH.@08/16/1739: CRENATED RBC added. RFLXG = MORPH.@08/16/1739: ACANTHO added. RFLXG = MORPH.@08/16/1739: ROLY RODS added. RFLXG = MORPH.@08/16/1739: ROULEAUX added. RFLXG = MORPH.@08/16/1739: SCHISTO added. RFLXG = MORPH.@08/16/17 0639: PARASITES added. RFLXG = MORPH. Performed By: #### C MP, PT, CBC, PTT, ESR, CPK 1, CKMB 1, TROP 1, ST OCC BLD ####Main Lab - [id number] [place], [place] [address] Erythrocyte distribution width Auto Ratio (RBC) 24.3 % High 11.5-14.0 [facility] Comment on above: Order Comment: @07/29: SMUDGE CELLS added. RFLXG = MORPH.@08/16/17638: GIANT PLATELETS added. RFLXG = MORPH.@08/16/17638: POLYCHROM added. RFLXG = MORPH.@08/16/17638: HYPERCHROM added. RFLXG = MORPH.@08/16/1739: HYPOCHROM added. RFLXG = MORPH.@08/16/1739: POIK added. RFLXG = MORPH.@08/16/1739: BASO STIP added. RFLXG = MORPH.@08/16/17 0639: ANISO added. RFLXG = MORPH.@08/16/1739: MICRO added. RFLXG = MORPH.@08/16/1739: MACRO added. RFLXG = MORPH.@08/16/1739: SPHERE added. RFLXG = MORPH.@08/16/1739: ELLIPTO added. RFLXG = MORPH.@08/16/1739: SIDEROCYTE added. RFLXG = MORPH.@08/16/1739: ADARSH BODIES added. RFLXG = MORPH.@08/16/1739: PELGER-HUET added. RFLXG = MORPH.@08/16/1739: ANA LILIA BODIES added. RFLXG = MORPH.@08/16/1739: SICKLE added. RFLXG = MORPH.@08/16/1739: TARGET added. RFLXG = MORPH.@08/16/17 0639: TEAR added. RFLXG = MORPH.@08/16/1739: OVAL added. RFLXG = MORPH.@08/16/1739: STOMATO added. RFLXG = MORPH.@08/16/1739: HELMET CELLS added. RFLXG = MORPH.@08/16/17 0639: HJ BODIES added. RFLXG = MORPH.@08/16/1739: TOXIC GRAN added. RFLXG = MORPH.@08/16/17 0639: TOXIC VAC added. RFLXG = MORPH.@08/16/1739: DOHLE BODIES added. RFLXG = MORPH.@08/16/17638: NIMISHA CELLS added. RFLXG = MORPH.@08/16/17638: CRENATED RBC added. RFLXG = MORPH.@08/16/1739: ACANTHO added. RFLXG = MORPH.@08/16/17638: ROLY RODS added. RFLXG = MORPH.@08/16/1739: ROULEAUX added. RFLXG = MORPH.@08/16/17638: SCHISTO added. RFLXG = MORPH.@08/16/17638: PARASITES added. RFLXG = MORPH. Performed By: #### C MP, PT, CBC, PTT, ESR, CPK 1, CKMB 1, TROP 1, ST OCC BLD ####Main Lab - [id number] [place] [address] Erythrocytes (RBC) 4.01 x10 6/uL Normal 3.89-5.30 [facility] Comment on above: Order Comment: @07/29: SMUDGE CELLS added. RFLXG = MORPH.@08/16/1739: GIANT PLATELETS added. RFLXG = MORPH.@08/16/1739: POLYCHROM added. RFLXG = MORPH.@08/16/1739: HYPERCHROM added. RFLXG = MORPH.@08/16/17 0639: HYPOCHROM added. RFLXG = MORPH.@08/16/1739: POIK added. RFLXG = MORPH.@08/16/17 0639: BASO STIP added. RFLXG = MORPH.@08/16/17 0639: ANISO added. RFLXG = MORPH.@08/16/1739: MICRO added. RFLXG = MORPH.@08/16/1739: MACRO added. RFLXG = MORPH.@08/16/17 0639: SPHERE added. RFLXG = MORPH.@08/16/1739: ELLIPTO added. RFLXG = MORPH.@08/16/1739: SIDEROCYTE added. RFLXG = MORPH.@08/16/1739: ADARSH BODIES added. RFLXG = MORPH.@08/16/1739: PELGER-HUET added. RFLXG = MORPH.@08/16/1739: ANA LILIA BODIES added. RFLXG = MORPH.@08/16/17 0639: SICKLE added. RFLXG = MORPH.@08/16/1739: TARGET added. RFLXG = MORPH.@08/16/1739: TEAR added. RFLXG = MORPH.@08/16/1739: OVAL added. RFLXG = MORPH.@08/16/1739: STOMATO added. RFLXG = MORPH.@08/16/1739: HELMET CELLS added. RFLXG = MORPH.@08/16/1739: HJ BODIES added. RFLXG = MORPH.@08/16/1739: TOXIC GRAN added. RFLXG = MORPH.@08/16/1739: TOXIC VAC added. RFLXG = MORPH.@08/16/1739: DOHLE BODIES added. RFLXG = MORPH.@08/16/1739: NIMISHA CELLS added. RFLXG = MORPH.@08/16/1739: CRENATED RBC added. RFLXG = MORPH.@08/16/1739: ACANTHO added. RFLXG = MORPH.@08/16/1739: ROLY RODS added. RFLXG = MORPH.@08/16/1739: ROULEAUX added. RFLXG = MORPH.@08/16/1739: SCHISTO added. RFLXG = MORPH.@08/16/17 0639: PARASITES added. RFLXG = MORPH. Performed By: #### C MP, PT, CBC, PTT, ESR, CPK 1, CKMB 1, TROP 1, ST OCC BLD ####Main Lab - [id number] [place], [place] [address] Hematocrit (HCT) 24.5 % Low 34.8-45.0 [facility] Comment on above: Order Comment: @07/29: SMUDGE CELLS added. RFLXG = MORPH.@08/16/17 0639: GIANT PLATELETS added. RFLXG = MORPH.@08/16/1739: POLYCHROM added. RFLXG = MORPH.@08/16/17638: HYPERCHROM added. RFLXG = MORPH.@08/16/1739: HYPOCHROM added. RFLXG = MORPH.@08/16/1739: POIK added. RFLXG = MORPH.@08/16/1739: BASO STIP added. RFLXG = MORPH.@08/16/17 0639: ANISO added. RFLXG = MORPH.@08/16/17 0639: MICRO added. RFLXG = MORPH.@08/16/17638: MACRO added. RFLXG = MORPH.@08/16/1739: SPHERE added. RFLXG = MORPH.@08/16/1739: ELLIPTO added. RFLXG = MORPH.@08/16/1739: SIDEROCYTE added. RFLXG = MORPH.@08/16/1739: ADARSH BODIES added. RFLXG = MORPH.@08/16/1739: PELGER-HUET added. RFLXG = MORPH.@08/16/1739: ANA LILIA BODIES added. RFLXG = MORPH.@08/16/1739: SICKLE added. RFLXG = MORPH.@08/16/1739: TARGET added. RFLXG = MORPH.@08/16/1739: TEAR added. RFLXG = MORPH.@08/16/1739: OVAL added. RFLXG = MORPH.@08/16/17 0639: STOMATO added. RFLXG = MORPH.@08/16/17 0639: HELMET CELLS added. RFLXG = MORPH.@08/16/17 0639: HJ BODIES added. RFLXG = MORPH.@08/16/1739: TOXIC GRAN added. RFLXG = MORPH.@08/16/17 0639: TOXIC VAC added. RFLXG = MORPH.@08/16/1739: DOHLE BODIES added. RFLXG = MORPH.@08/16/1739: NIMISHA CELLS added. RFLXG = MORPH.@08/16/1739: CRENATED RBC added. RFLXG = MORPH.@08/16/1739: ACANTHO added. RFLXG = MORPH.@08/16/17638: ROLY RODS added. RFLXG = MORPH.@08/16/1739: ROULEAUX added. RFLXG = MORPH.@08/16/17638: SCHISTO added. RFLXG = MORPH.@08/16/17638: PARASITES added. RFLXG = MORPH. Performed By: #### C MP, PT, CBC, PTT, ESR, CPK 1, CKMB 1, TROP 1, ST OCC BLD ####Main Lab - [id number] [place] [address] Hemoglobin mass conc (Bld) 7.8 g/dL Low 11.6-14.9 [facility] Comment on above: Order Comment: @07/29: SMUDGE CELLS added. RFLXG = MORPH.@08/16/1739: GIANT PLATELETS added. RFLXG = MORPH.@08/16/1739: POLYCHROM added. RFLXG = MORPH.@08/16/1739: HYPERCHROM added. RFLXG = MORPH.@08/16/1739: HYPOCHROM added. RFLXG = MORPH.@08/16/1739: POIK added. RFLXG = MORPH.@08/16/1739: BASO STIP added. RFLXG = MORPH.@08/16/1739: ANISO added. RFLXG = MORPH.@08/16/1739: MICRO added. RFLXG = MORPH.@08/16/1739: MACRO added. RFLXG = MORPH.@08/16/1739: SPHERE added. RFLXG = MORPH.@08/16/1739: ELLIPTO added. RFLXG = MORPH.@08/16/1739: SIDEROCYTE added. RFLXG = MORPH.@08/16/1739: ADARSH BODIES added. RFLXG = MORPH.@08/16/1739: PELGER-HUET added. RFLXG = MORPH.@08/16/1739: ANA LILIA BODIES added. RFLXG = MORPH.@08/16/17638: SICKLE added. RFLXG = MORPH.@08/16/17638: TARGET added. RFLXG = MORPH.@08/16/17638: TEAR added. RFLXG = MORPH.@08/16/17638: OVAL added. RFLXG = MORPH.@08/16/17638: STOMATO added. RFLXG = MORPH.@08/16/1739: HELMET CELLS added. RFLXG = MORPH.@08/16/1739: HJ BODIES added. RFLXG = MORPH.@08/16/1739: TOXIC GRAN added. RFLXG = MORPH.@08/16/1739: TOXIC VAC added. RFLXG = MORPH.@08/16/1739: DOHLE BODIES added. RFLXG = MORPH.@08/16/1739: NIMISHA CELLS added. RFLXG = MORPH.@08/16/1739: CRENATED RBC added. RFLXG = MORPH.@08/16/1739: ACANTHO added. RFLXG = MORPH.@08/16/1739: ROLY RODS added. RFLXG = MORPH.@08/16/1739: ROULEAUX added. RFLXG = MORPH.@08/16/1739: SCHISTO added. RFLXG = MORPH.@08/16/1739: PARASITES added. RFLXG = MORPH. Performed By: #### C MP, PT, CBC, PTT, ESR, CPK 1, CKMB 1, TROP 1, ST OCC BLD ####Main Lab - [id number] [place], [place] [address] MCH 19.4 pg Low 27.0-31.0 [facility] Comment on above: Order Comment: @07/29: SMUDGE CELLS added. RFLXG = MORPH.@08/16/17 0639: GIANT PLATELETS added. RFLXG = MORPH.@08/16/17 0639: POLYCHROM added. RFLXG = MORPH.@08/16/17 0639: HYPERCHROM added. RFLXG = MORPH.@08/16/17 0639: HYPOCHROM added. RFLXG = MORPH.@08/16/17 0639: POIK added. RFLXG = MORPH.@08/16/1739: BASO STIP added. RFLXG = MORPH.@08/16/17 0639: ANISO added. RFLXG = MORPH.@08/16/17 0639: MICRO added. RFLXG = MORPH.@08/16/17 0639: MACRO added. RFLXG = MORPH.@08/16/17 0639: SPHERE added. RFLXG = MORPH.@08/16/17 0639: ELLIPTO added. RFLXG = MORPH.@08/16/17 0639: SIDEROCYTE added. RFLXG = MORPH.@08/16/17 0639: DAARSH BODIES added. RFLXG = MORPH.@08/16/17 0639: PELGER-HUET added. RFLXG = MORPH.@08/16/17 0639: ANA LILIA BODIES added. RFLXG = MORPH.@08/16/17 0639: SICKLE added. RFLXG = MORPH.@08/16/17 0639: TARGET added. RFLXG = MORPH.@08/16/17 0639: TEAR added. RFLXG = MORPH.@08/16/17 0639: OVAL added. RFLXG = MORPH.@08/16/17 0639: STOMATO added. RFLXG = MORPH.@08/16/17 0639: HELMET CELLS added. RFLXG = MORPH.@08/16/17 0639: HJ BODIES added. RFLXG = MORPH.@08/16/17 0639: TOXIC GRAN added. RFLXG = MORPH.@08/16/17 0639: TOXIC VAC added. RFLXG = MORPH.@08/16/1739: DOHLE BODIES added. RFLXG = MORPH.@08/16/17638: NIMISHA CELLS added. RFLXG = MORPH.@08/16/1739: CRENATED RBC added. RFLXG = MORPH.@08/16/1739: ACANTHO added. RFLXG = MORPH.@08/16/1739: ROLY RODS added. RFLXG = MORPH.@08/16/1739: ROULEAUX added. RFLXG = MORPH.@08/16/17638: SCHISTO added. RFLXG = MORPH.@08/16/17638: PARASITES added. RFLXG = MORPH. Performed By: #### C MP, PT, CBC, PTT, ESR, CPK 1, CKMB 1, TROP 1, ST OCC BLD ####Main Lab - [id number] [place] [address] MCHC mass conc (RBC) 31.8 g/dL Low 32.0-36.0 [facility] Comment on above: Order Comment: @07/29: SMUDGE CELLS added. RFLXG = MORPH.@08/16/17638: GIANT PLATELETS added. RFLXG = MORPH.@08/16/1739: POLYCHROM added. RFLXG = MORPH.@08/16/1739: HYPERCHROM added. RFLXG = MORPH.@08/16/1739: HYPOCHROM added. RFLXG = MORPH.@08/16/1739: POIK added. RFLXG = MORPH.@08/16/1739: BASO STIP added. RFLXG = MORPH.@08/16/1739: ANISO added. RFLXG = MORPH.@08/16/1739: MICRO added. RFLXG = MORPH.@08/16/1739: MACRO added. RFLXG = MORPH.@08/16/1739: SPHERE added. RFLXG = MORPH.@08/16/1739: ELLIPTO added. RFLXG = MORPH.@08/16/17 0639: SIDEROCYTE added. RFLXG = MORPH.@08/16/17 0639: ADARSH BODIES added. RFLXG = MORPH.@08/16/1739: PELGER-HUET added. RFLXG = MORPH.@08/16/17 0639: ANA LILIA BODIES added. RFLXG = MORPH.@08/16/17 0639: SICKLE added. RFLXG = MORPH.@08/16/17 0639: TARGET added. RFLXG = MORPH.@08/16/17 0639: TEAR added. RFLXG = MORPH.@08/16/17 0639: OVAL added. RFLXG = MORPH.@08/16/1739: STOMATO added. RFLXG = MORPH.@08/16/1739: HELMET CELLS added. RFLXG = MORPH.@08/16/1739: HJ BODIES added. RFLXG = MORPH.@08/16/1739: TOXIC GRAN added. RFLXG = MORPH.@08/16/1739: TOXIC VAC added. RFLXG = MORPH.@08/16/1739: DOHLE BODIES added. RFLXG = MORPH.@08/16/1739: NIMISHA CELLS added. RFLXG = MORPH.@08/16/1739: CRENATED RBC added. RFLXG = MORPH.@08/16/17 0639: ACANTHO added. RFLXG = MORPH.@08/16/1739: ROLY RODS added. RFLXG = MORPH.@08/16/1739: ROULEAUX added. RFLXG = MORPH.@08/16/17 0639: SCHISTO added. RFLXG = MORPH.@08/16/17 0639: PARASITES added. RFLXG = MORPH. Performed By: #### C MP, PT, CBC, PTT, ESR, CPK 1, CKMB 1, TROP 1, ST OCC BLD ####Main Lab - [id number] [place], [place] [address] MCV 61.0 fL Low 78.0-100.0 [facility] Comment on above: Order Comment: @07/29 05/15 0639: SMUDGE CELLS added. RFLXG = MORPH.@08/16/1739: GIANT PLATELETS added. RFLXG = MORPH.@08/16/17 0639: POLYCHROM added. RFLXG = MORPH.@08/16/1739: HYPERCHROM added. RFLXG = MORPH.@08/16/1739: HYPOCHROM added. RFLXG = MORPH.@08/16/1739: POIK added. RFLXG = MORPH.@08/16/1739: BASO STIP added. RFLXG = MORPH.@08/16/17 0639: ANISO added. RFLXG = MORPH.@08/16/17 0639: MICRO added. RFLXG = MORPH.@08/16/1739: MACRO added. RFLXG = MORPH.@08/16/1739: SPHERE added. RFLXG = MORPH.@08/16/1739: ELLIPTO added. RFLXG = MORPH.@08/16/1739: SIDEROCYTE added. RFLXG = MORPH.@08/16/1739: ADARSH BODIES added. RFLXG = MORPH.@08/16/1739: PELGER-HUET added. RFLXG = MORPH.@08/16/1739: ANA LILIA BODIES added. RFLXG = MORPH.@08/16/17 0639: SICKLE added. RFLXG = MORPH.@08/16/1739: TARGET added. RFLXG = MORPH.@08/16/1739: TEAR added. RFLXG = MORPH.@08/16/1739: OVAL added. RFLXG = MORPH.@08/16/1739: STOMATO added. RFLXG = MORPH.@08/16/1739: HELMET CELLS added. RFLXG = MORPH.@08/16/1739: HJ BODIES added. RFLXG = MORPH.@08/16/1739: TOXIC GRAN added. RFLXG = MORPH.@08/16/1739: TOXIC VAC added. RFLXG = MORPH.@08/16/1739: DOHLE BODIES added. RFLXG = MORPH.@08/16/1739: NIMISHA CELLS added. RFLXG = MORPH.@08/16/1739: CRENATED RBC added. RFLXG = MORPH.@08/16/17 0639: ACANTHO added. RFLXG = MORPH.@08/16/1739: ROLY RODS added. RFLXG = MORPH.@08/16/1739: ROULEAUX added. RFLXG = MORPH.@08/16/1739: SCHISTO added. RFLXG = MORPH.@08/16/1739: PARASITES added. RFLXG = MORPH. Performed By: #### C MP, PT, CBC, PTT, ESR, CPK 1, CKMB 1, TROP 1, ST OCC BLD ####Main Lab - [id number] [place] [address] Platelet mean volume (PMV) 8.6 fL Normal 6.0-9.5 [facility] Comment on above: Order Comment: @07/29: SMUDGE CELLS added. RFLXG = MORPH.@08/16/1739: GIANT PLATELETS added. RFLXG = MORPH.@08/16/1739: POLYCHROM added. RFLXG = MORPH.@08/16/1739: HYPERCHROM added. RFLXG = MORPH.@08/16/1739: HYPOCHROM added. RFLXG = MORPH.@08/16/17 0639: POIK added. RFLXG = MORPH.@08/16/1739: BASO STIP added. RFLXG = MORPH.@08/16/1739: ANISO added. RFLXG = MORPH.@08/16/17 0639: MICRO added. RFLXG = MORPH.@08/16/1739: MACRO added. RFLXG = MORPH.@08/16/1739: SPHERE added. RFLXG = MORPH.@08/16/1739: ELLIPTO added. RFLXG = MORPH.@08/16/1739: SIDEROCYTE added. RFLXG = MORPH.@08/16/1739: ADARSH BODIES added. RFLXG = MORPH.@08/16/1739: PELGER-HUET added. RFLXG = MORPH.@08/16/17 0639: ANA LILIA BODIES added. RFLXG = MORPH.@08/16/17 0639: SICKLE added. RFLXG = MORPH.@08/16/17 0639: TARGET added. RFLXG = MORPH.@08/16/17 0639: TEAR added. RFLXG = MORPH.@08/16/17 0639: OVAL added. RFLXG = MORPH.@08/16/1739: STOMATO added. RFLXG = MORPH.@08/16/17 0639: HELMET CELLS added. RFLXG = MORPH.@08/16/17 0639: HJ BODIES added. RFLXG = MORPH.@08/16/1739: TOXIC GRAN added. RFLXG = MORPH.@08/16/1739: TOXIC VAC added. RFLXG = MORPH.@08/16/1739: DOHLE BODIES added. RFLXG = MORPH.@08/16/1739: NIMISHA CELLS added. RFLXG = MORPH.@08/16/1739: CRENATED RBC added. RFLXG = MORPH.@08/16/1739: ACANTHO added. RFLXG = MORPH.@08/16/1739: ROLY RODS added. RFLXG = MORPH.@08/16/1739: ROULEAUX added. RFLXG = MORPH.@08/16/1739: SCHISTO added. RFLXG = MORPH.@08/16/17 0639: PARASITES added. RFLXG = MORPH. Performed By: #### C MP, PT, CBC, PTT, ESR, CPK 1, CKMB 1, TROP 1, ST OCC BLD ####Main Lab - [id number] [place], [place] [address] Platelets 270 10 3/uL Normal 150-450 [facility] Comment on above: Order Comment: @07/29: SMUDGE CELLS added. RFLXG = MORPH.@08/16/1739: GIANT PLATELETS added. RFLXG = MORPH.@08/16/17 0639: POLYCHROM added. RFLXG = MORPH.@08/16/1739: HYPERCHROM added. RFLXG = MORPH.@08/16/17 0639: HYPOCHROM added. RFLXG = MORPH.@08/16/17 0639: POIK added. RFLXG = MORPH.@08/16/17 0639: BASO STIP added. RFLXG = MORPH.@08/16/17 0639: ANISO added. RFLXG = MORPH.@08/16/17 0639: MICRO added. RFLXG = MORPH.@08/16/17 0639: MACRO added. RFLXG = MORPH.@08/16/17 0639: SPHERE added. RFLXG = MORPH.@08/16/1739: ELLIPTO added. RFLXG = MORPH.@08/16/1739: SIDEROCYTE added. RFLXG = MORPH.@08/16/1739: ADARSH BODIES added. RFLXG = MORPH.@08/16/1739: PELGER-HUET added. RFLXG = MORPH.@08/16/1739: ANA LILIA BODIES added. RFLXG = MORPH.@08/16/17 0639: SICKLE added. RFLXG = MORPH.@08/16/1739: TARGET added. RFLXG = MORPH.@08/16/1739: TEAR added. RFLXG = MORPH.@08/16/1739: OVAL added. RFLXG = MORPH.@08/16/1739: STOMATO added. RFLXG = MORPH.@08/16/17 0639: HELMET CELLS added. RFLXG = MORPH.@08/16/1739: HJ BODIES added. RFLXG = MORPH.@08/16/1739: TOXIC GRAN added. RFLXG = MORPH.@08/16/17 0639: TOXIC VAC added. RFLXG = MORPH.@08/16/1739: DOHLE BODIES added. RFLXG = MORPH.@08/16/1739: NIMISHA CELLS added. RFLXG = MORPH.@08/16/1739: CRENATED RBC added. RFLXG = MORPH.@08/16/17 0639: ACANTHO added. RFLXG = MORPH.@08/16/1739: ROLY RODS added. RFLXG = MORPH.@08/16/1739: ROULEAUX added. RFLXG = MORPH.@08/16/17638: SCHISTO added. RFLXG = MORPH.@08/16/17638: PARASITES added. RFLXG = MORPH. Performed By: #### C MP, PT, CBC, PTT, ESR, CPK 1, CKMB 1, TROP 1, ST OCC BLD ####Main Lab - [id number] [place] [id number] WBC (Leukocytes) 9.1 10 3/uL Normal 4.0-10.5 [facility] Comment on above: Order Comment: @07/29: SMUDGE CELLS added. RFLXG = MORPH.@08/16/17638: GIANT PLATELETS added. RFLXG = MORPH.@08/16/17638: POLYCHROM added. RFLXG = MORPH.@08/16/17638: HYPERCHROM added. RFLXG = MORPH.@08/16/17638: HYPOCHROM added. RFLXG = MORPH.@08/16/1739: POIK added. RFLXG = MORPH.@08/16/1739: BASO STIP added. RFLXG = MORPH.@08/16/1739: ANISO added. RFLXG = MORPH.@08/16/1739: MICRO added. RFLXG = MORPH.@08/16/1739: MACRO added. RFLXG = MORPH.@08/16/17638: SPHERE added. RFLXG = MORPH.@08/16/17638: ELLIPTO added. RFLXG = MORPH.@08/16/1739: SIDEROCYTE added. RFLXG = MORPH.@08/16/1739: ADARSH BODIES added. RFLXG = MORPH.@08/16/17638: PELGER-HUET added. RFLXG = MORPH.@08/16/1739: ANA LILIA BODIES added. RFLXG = MORPH.@08/16/1739: SICKLE added. RFLXG = MORPH.@08/16/1739: TARGET added. RFLXG = MORPH.@08/16/1739: TEAR added. RFLXG = MORPH.@08/16/17 0639: OVAL added. RFLXG = MORPH.@08/16/1739: STOMATO added. RFLXG = MORPH.@08/16/1739: HELMET CELLS added. RFLXG = MORPH.@08/16/17 0639: HJ BODIES added. RFLXG = MORPH.@08/16/1739: TOXIC GRAN added. RFLXG = MORPH.@08/16/17 0639: TOXIC VAC added. RFLXG = MORPH.@08/16/17 0639: DOHLE BODIES added. RFLXG = MORPH.@08/16/1739: NIMISHA CELLS added. RFLXG = MORPH.@08/16/17638: CRENATED RBC added. RFLXG = MORPH.@08/16/1739: ACANTHO added. RFLXG = MORPH.@08/16/17638: ROLY RODS added. RFLXG = MORPH.@08/16/17638: ROULEAUX added. RFLXG = MORPH.@08/16/1739: SCHISTO added. RFLXG = MORPH.@08/16/17638: PARASITES added. RFLXG = MORPH. Performed By: #### C MP, PT, CBC, PTT, ESR, CPK 1, CKMB 1, TROP 1, ST OCC BLD ####Main Lab - [id number] [place], [place] [address] EKGon 08-16-2017 EKG Ordered by an unspec ified provider. Invalid Interpretation Code [facility] Work Phone: HYPOCHROMASIAon 08-16-2017 HYPOCHROMASIA 2+ Abnormal [facility] Comment on above: Order Comment: @07/29: SMUDGE CELLS added. RFLXG = MORPH.@08/16/17638: GIANT PLATELETS added. RFLXG = MORPH.@08/16/1739: POLYCHROM added. RFLXG = MORPH.@08/16/17 0639: HYPERCHROM added. RFLXG = MORPH.@08/16/1739: HYPOCHROM added. RFLXG = MORPH.@08/16/17 0639: POIK added. RFLXG = MORPH.@08/16/17 0639: BASO STIP added. RFLXG = MORPH.@08/16/17 0639: ANISO added. RFLXG = MORPH.@08/16/17 0639: MICRO added. RFLXG = MORPH.@08/16/17 0639: MACRO added. RFLXG = MORPH.@08/16/17 0639: SPHERE added. RFLXG = MORPH.@08/16/17 0639: ELLIPTO added. RFLXG = MORPH.@08/16/17 0639: SIDEROCYTE added. RFLXG = MORPH.@08/16/1739: ADARSH BODIES added. RFLXG = MORPH.@08/16/1739: PELGER-HUET added. RFLXG = MORPH.@08/16/1739: ANA LILIA BODIES added. RFLXG = MORPH.@08/16/17 0639: SICKLE added. RFLXG = MORPH.@08/16/17 0639: TARGET added. RFLXG = MORPH.@08/16/17 0639: TEAR added. RFLXG = MORPH.@08/16/1739: OVAL added. RFLXG = MORPH.@08/16/1739: STOMATO added. RFLXG = MORPH.@08/16/1739: HELMET CELLS added. RFLXG = MORPH.@08/16/17 0639: HJ BODIES added. RFLXG = MORPH.@08/16/17 0639: TOXIC GRAN added. RFLXG = MORPH.@08/16/17 0639: TOXIC VAC added. RFLXG = MORPH.@08/16/1739: DOHLE BODIES added. RFLXG = MORPH.@08/16/1739: NIMISHA CELLS added. RFLXG = MORPH.@08/16/1739: CRENATED RBC added. RFLXG = MORPH.@08/16/17 0639: ACANTHO added. RFLXG = MORPH.@08/16/17 0639: ROLY RODS added. RFLXG = MORPH.@08/16/17 0639: ROULEAUX added. RFLXG = MORPH.@08/16/1739: SCHISTO added. RFLXG = MORPH.@08/16/1739: PARASITES added. RFLXG = MORPH. Performed By: #### C MP, PT, CBC, PTT, ESR, CPK 1, CKMB 1, TROP 1, ST OCC BLD ####Main Lab - [id number] [place], [place] [address] MAGNESIUMon 08-16-2017 Magnesium 2.0 mg/dL Normal 1.7-2.2 [facility] Comment on above: Performed By: #### C MP, PT, CBC, PTT, ESR, CPK 1, CKMB 1, TROP 1, ST OCC BLD ####Main Lab - [id number] [place], [place] [address] MICROCYTOSISon 08-16-2017 MICROCYTOSIS 3+ Abnormal [facility] Comment on above: Order Comment: @07/29: SMUDGE CELLS added. RFLXG = MORPH.@08/16/17638: GIANT PLATELETS added. RFLXG = MORPH.@08/16/1739: POLYCHROM added. RFLXG = MORPH.@08/16/17638: HYPERCHROM added. RFLXG = MORPH.@08/16/17638: HYPOCHROM added. RFLXG = MORPH.@08/16/1739: POIK added. RFLXG = MORPH.@08/16/1739: BASO STIP added. RFLXG = MORPH.@08/16/1739: ANISO added. RFLXG = MORPH.@08/16/1739: MICRO added. RFLXG = MORPH.@08/16/1739: MACRO added. RFLXG = MORPH.@08/16/1739: SPHERE added. RFLXG = MORPH.@08/16/17638: ELLIPTO added. RFLXG = MORPH.@08/16/1739: SIDEROCYTE added. RFLXG = MORPH.@08/16/1739: ADARSH BODIES added. RFLXG = MORPH.@08/16/1739: PELGER-HUET added. RFLXG = MORPH.@12/19/17 0639: ANA LILIA BODIES added. RFLXG = MORPH.@08/16/17 0639: SICKLE added. RFLXG = MORPH.@08/16/17 0639: TARGET added. RFLXG = MORPH.@08/16/17 0639: TEAR added. RFLXG = MORPH.@08/16/17 0639: OVAL added. RFLXG = MORPH.@08/16/17 0639: STOMATO added. RFLXG = MORPH.@08/16/17 0639: HELMET CELLS added. RFLXG = MORPH.@08/16/17 0639: HJ BODIES added. RFLXG = MORPH.@08/16/17 0639: TOXIC GRAN added. RFLXG = MORPH.@08/16/17 0639: TOXIC VAC added. RFLXG = MORPH.@08/16/17 0639: DOHLE BODIES added. RFLXG = MORPH.@08/16/17 0639: NIMISHA CELLS added. RFLXG = MORPH.@08/16/17 0639: CRENATED RBC added. RFLXG = MORPH.@08/16/17 0639: ACANTHO added. RFLXG = MORPH.@08/16/17 0639: ROLY RODS added. RFLXG = MORPH.@08/16/17 0639: ROULEAUX added. RFLXG = MORPH.@08/16/17 0639: SCHISTO added. RFLXG = MORPH.@08/16/17 0639: PARASITES added. RFLXG = MORPH. Performed By: #### C MP, PT, CBC, PTT, ESR, CPK 1, CKMB 1, TROP 1, ST OCC BLD ####Main Lab - [id number] [place], [place] [address] OT IP EVALUATIONon 7 OT IP EVALUATION [address] [id number] OT IP EVALUATION : [id number] Signed Name: BLAS LUJAN MRUN: [id number] : 1960 Loc: 3S Age / Sex: 57/ F Adm Status: ADM IN Adm Date:08/14/17 Room/Bed: [facility] OCCUPATIONAL THERAPY INPATIENT EVALUATION Date: 08/16/17 Time: 1044 am Diagnosis: Leukocytosis, UTI, elevated lactate Treatment Diagnosis: Muscle wasting and atrophy, not elsewhere classified, unspecified site Referring Physician: Dr. Ford Orders as They Appear on Chart: PT/OT Eval and Treat Precautions: IV, Telemetry, Fall Watch History of Present Illness: Pt is a 57 yo female who presented to the hospital with progressive dyspnea on exertion to SOB with minimal activity for 1 week duration. Pt with generalized weakness, cough, tachycardia and palpations. Urinalysis consistent with UTI. Past Medical History: COPD, anxiety/depressive disorder, GERD, chronic recurrent back pain, OA, hx of substance abuse, heart murmur, HTN, dyslipidemia, hiatal hernia Home Environment: Pt lives alone in a one bedroom apartment with 1 step to enter. Her friend lives next door and assists the pt with cooking/cleaning and transportation. She reports using straight cane for ambulation and often holds onto furniture and alicea for support. She has a tub shower with seat and is IND with her ADL's. Pt does not drive. Bed Alarm: no SUBJECTIVE Pain: Shoulder pain 6-7/10, RUE 6-7/10, LUE 5/10 OBJECTIVE Current Functional Status Self Care: LB ADL's: CGA UB ADL's: Supervision Toileting Hygiene: IND Functional Mobility: Supine to sit : SBAx1 with bed rail Sit to stand: CGAx2 In room mob: CGAx2 Sit to supine: SBAx1 Physical Assessment Range of Motion: BUE's are WFL Right elbow extension 40 deg from 0 Muscle Strength: RUE Shoulder flex: 4-/5 Elbow flex: 4/5 Ext: 4-/5 Wrist flex/ext: 4/5 LUE Shoulder flex: 4/5 Elbow flex: 4/5 Ext: 4-/5 Wrist flex/ext: 4/5 Sustained Activity Tolerance: Pt demonstrates fair- activity tolerance with increased fatigue and lethargy. Pt to receive blood transfusion today. Coordination: hair opposition intact. She is right handed Sensation: Intermittent numbness to the 4/5th digits on right hand Perception: hearing and vision appear functional. Cognition/Safety: Pt is alert and oriented x3. ASSESSMENT Pt is a 57 yo female who presented to the hospital with SOB, tachycardia and generalized weakness. Pt with co-morbidities that include: generalized weakness throughout with poor activity tolerance and endurance, assistance with safe functional transfers, mobility and self care. PLAN Treatment to include the following: ADL's, transfers, thera exc, thera act Time Frame/Duration of Treatment: 1-2x daily during inpatient stay, 5 days a week Goals were established with the patient and are as follows: 1. Pt will participate in therapeutic exercises for BUE's for at least 12 mins provided rest breaks as needed to improve UB endurance for self care. 2. Pt will complete all functional transfers provided no more than CGAx1 with good hand placement for improved safety. 3. Pt will participate in UB/LB ADL's for at least 15 mins while seated for improved overall activity tolerance. 4. Pt will stand at the sink to complete grooming routine for at least 8 mins to improve standing endurance. Discharge Recommendations: HH therapies Evaluation Complexity Level: Low Impairment code and severity modifier chosen (All patients with Medicare): CURRENT: G8987 CK GOAL: G8988 CJ Justification: Based on pt's current deficits in self care routine due to generalized weakness. This patient will be discharged from OT services at [facility] when all goals are met, patient has a plateau in progress, per physicians order or refusal of therapy services 3 consecutive times. Thank you very much for requesting our participation in the advancement of this patient's care! Dictated By: Tone ARNOLD/[id number] 08/17/17 1028 Dictated Date/Time: 08/16/171742 Transcribed Date/Time: 08/16/171742 Normal [facility] POIKILOCYTOSISon 08-16-2017 POIKILOCYTOSIS 1+ Abnormal Silvia ledezma [facility] Comment on above: Order Comment: @07/29 05/15 0639: SMUDGE CELLS added. RFLXG = MORPH.@08/16/17 0639: GIANT PLATELETS added. RFLXG = MORPH.@08/16/17 0639: POLYCHROM added. RFLXG = MORPH.@08/16/17 0639: HYPERCHROM added. RFLXG = MORPH.@08/16/17 0639: HYPOCHROM added. RFLXG = MORPH.@08/16/17 0639: POIK added. RFLXG = MORPH.@08/16/17 0639: BASO STIP added. RFLXG = MORPH.@08/16/17 0639: ANISO added. RFLXG = MORPH.@08/16/1739: MICRO added. RFLXG = MORPH.@08/16/1739: MACRO added. RFLXG = MORPH.@08/16/1739: SPHERE added. RFLXG = MORPH.@08/16/1739: ELLIPTO added. RFLXG = MORPH.@08/16/1739: SIDEROCYTE added. RFLXG = MORPH.@08/16/1739: ADARSH BODIES added. RFLXG = MORPH.@08/16/1739: PELGER-HUET added. RFLXG = MORPH.@08/16/17638: ANA LILIA BODIES added. RFLXG = MORPH.@08/16/17638: SICKLE added. RFLXG = MORPH.@08/16/17638: TARGET added. RFLXG = MORPH.@08/16/17638: TEAR added. RFLXG = MORPH.@08/16/17638: OVAL added. RFLXG = MORPH.@08/16/1739: STOMATO added. RFLXG = MORPH.@08/16/17638: HELMET CELLS added. RFLXG = MORPH.@08/16/17638: HJ BODIES added. RFLXG = MORPH.@08/16/1739: TOXIC GRAN added. RFLXG = MORPH.@08/16/1739: TOXIC VAC added. RFLXG = MORPH.@08/16/1739: DOHLE BODIES added. RFLXG = MORPH.@08/16/1739: NIMISHA CELLS added. RFLXG = MORPH.@08/16/1739: CRENATED RBC added. RFLXG = MORPH.@08/16/1739: ACANTHO added. RFLXG = MORPH.@08/16/17638: ROLY RODS added. RFLXG = MORPH.@08/16/1739: ROULEAUX added. RFLXG = MORPH.@08/16/1739: SCHISTO added. RFLXG = MORPH.@08/16/17638: PARASITES added. RFLXG = MORPH. Performed By: #### C MP, PT, CBC, PTT, ESR, CPK 1, CKMB 1, TROP 1, ST OCC BLD ####Main Lab - [id number], [place] [address] PROGRESS NOTEon 08-16-2017 PROGRESS NOTE [address] [facility] [address], [place] [address] PROGRESS NOTE : [phone] Signed Name: BLAS LUJAN MRUN: [id number] : 1960 Loc: 3S Age / Sex: 57/ F Adm Status: ADM IN Adm Date:08/14/17 Room/Bed: [facility] DATE: 08/16/2017. HISTORY OF PRESENT ILLNESS: Blas is doing better today. She was transfused. On the monitor, her QT interval prolonged, so Levaquin was stopped. She denies having any chest pain. She had a heart catheterization in August, which showed no CAD, mild mitral regurgitation, left ventricular end diastolic pressure of 17. She had an ECHO done yesterday that showed severe mitral regurgitation. She had EGD and colonoscopy done by Dr. Jama that showed no reason for her drop in hemoglobin. PHYSICAL EXAMINATION: VITAL SIGNS: Temperature 97.6, pulse 63, respirations 18, blood pressure 100/62, saturation 100% on room air. LUNGS: Decreased breath sounds. CV: Regular rate and rhythm. ABDOMEN: Soft. EXTREMITIES: No edema. LABORATORY DATA: 1. Hemoglobin 7.8, hematocrit 24.5, MCV 61, MCH 19. 2. Chem-7 normal, except sodium of 132, Bicarb 18, BUN 46. 3. Troponin 0.05, 0.04, 0.03, 0.03. ASSESSMENT AND PLAN: 1. Severe mitral regurgitation on echocardiogram yesterday. She most likely, at this point, will need mitral valve repair or replacement. I discussed this with the patient. She would like to spend the holidays with the family and then pursue intervention after the holidays. 2. Right pleural effusion. We will see if Dr. Asencio can do a thoracentesis tomorrow. 3. Exacerbation of diastolic heart failure. Continue to diurese and follow electrolytes. 4. Chronic obstructive pulmonary disease exacerbation. She was on Levaquin, but it was stopped due to the prolonged QT interval. 5. Urinary tract infection. 6. Deconditioning. 7. Acute renal failure has resolved. 8. Anemia. She did have a history of peptic ulcer disease. Dictated By: Shea Cesar MD 08/17/1781808/17/17818 Dictated Date/Time: 08/16/17 170 Transcribed Date/Time: 08/16/17 2109 Normal [facility] PROGRESS NOTE [address] [facility], [place] [address] PROGRESS NOTE : [phone] Signed Name: BLAS LUJAN MRUN: [id number] : 1960 Loc: 3S Age / Sex: 57/ F Adm Status: ADM IN Adm Date:08/14/17 Room/Bed: [facility] DATE: 08/16/2017. SUBJECTIVE: The patient is feeling better. Had a CTA done yesterday. It did show some fluid, but not a pulmonary embolism. Will transfuse a unit of blood today. OBJECTIVE: VITAL SIGNS: Today, temperature is 97.6, pulse is 61, respirations 20, blood pressure 98/53. GENERAL: The patient is in no acute distress and alert and oriented. NECK: Supple. There is no JVD. LUNGS: Breath sounds are decreased bilaterally. HEART: Regular rate and rhythm with systolic murmur. ABDOMEN: Soft, mild diffuse tenderness. Normoactive bowel sounds. EXTREMITIES: There is no edema or rashes. LABORATORY/STUDIES: White blood cell count is 9.19, hemoglobin is 7.8, platelets 270. D-dimer 1.58, sodium 132, potassium 3.8, chloride 105, carbon dioxide 18, BUN 26, creatinine 0.87, glucose 90, calcium 8.3, magnesium 2.0, creatinine kinase 109, CK-MB 9.7, troponin 0.03. Urine culture shows group B strep. CT ANGIO showed no filling defects or pulmonary embolism, increased volume and pleural effusion on the right with adjacent compressive and subsegmental atelectasis in the right lower lung field. Mediastinal lymph nodes as discussed above. A small amount of ascites fluid appears similar to previous exam. Similar compression deformity of T11. Irregular disk space at T11-12. ASSESSMENT AND PLAN: 1. Exacerbation of diastolic heart failure that may be due to her underlying valvular disease. We will continue diuresis. Noted there is some pleural effusion on CT. I spoke with Cardiology and she is going to assess the patient for possible valve replacement. She feels that it is likely that this needs to be replaced. I appreciate help in managing this patient. 2. Chronic obstructive pulmonary disease exacerbation. Continue breathing treatments and current Levaquin. 3. Urinary tract infection. Continue Levaquin. 4. Acute kidney injury has now resolved. We will continue to monitor renal function, given the patient remains on diuretics. 5. Atypical chest pain and elevated cardiac enzymes. They have now come down. The patient's symptoms are getting better, likely related to her valvular disease and fluid overload. We will continue diuresis. 6. Deconditioning. Ordering PT and OT today. 7. Anemia. The patient has history of peptic ulcer disease. Does have slow blood loss related to this and will transfuse. The unit today should help with her shortness of breath. DISPOSITION: We will continue breathing treatments, Levaquin and gentle diuresis. I appreciate Cardiology evaluation and referral for valve replacement. Will assess the patient tomorrow and she may be ready for discharge at that time. Dictated By: Carmen Ford MD 08/17/17 0908 08/17/17 0908 Dictated Date/Time: 08/16/17 0820 Transcribed Date/Time: 08/16/17 0955 Normal [facility] PT Inpatient Evaluationon PT Inpatient Evaluation [address] [place] [address] PT Inpatient Evaluation : [phone] Signed Name: BLAS LUJAN MRUN: [id number] : 1960 Loc: 3S Age / Sex: 57/ F Adm Status: DIS IN Adm Date:08/14/17 Room/Bed: [facility] Physical Therapy Inpatient Evaluation Date: 08/16/2017 Time: 1030 Diagnosis: Leukocytosis, urinary tract infection, elevated lactate. Treatment Diagnosis: Weakness, difficulty in walking. Referring Physician: Dr. Ford. Order: Physical (physical therapy eval/treat). Precautions: Fall precautions. History of Present Illness: Patient is a 57-year-old female who was not feeling well and was seen by physician. Patient was tested for strep which was negative. Patient was feeling weak and short of breath especially with walking. Patient does have history of to blood transfusions in the past few months. Patient was brought to the Emergency Room on 08/14/2017 secondary to general weakness, cough, tachycardia, palpitations and shortness of breath with minimal activity times one week. Patient received a CT of the chest, abdomen and pelvis. Patient received a chest x-ray and urinalysis. Patient was noted to have a troponin of 0.05 as well as an elevated BNP. Patient was found to have a UTI and was given IV Levaquin. Patient was admitted to acute care on 08/14/2017. Patient received an MRI of the lumbar spine and an MRI of the thoracic spine on 08/15/2017. Patient was also seen by Dr. Cesar and received a CT angio of chest. Patient is now referred to physical therapy Past Medical History: COPD, anxiety/depressive disorder, GERD, chronic back pain, osteoarthritis, substance abuse, heart murmur, HTN, dyslipidemia, hiatal hernia and back surgery. Refer to chart for further past medical history. Home Environment: Patient lives alone in a one-story apartment with 1 small step to enter. Patient's friend lives next door. Patient ambulated without an assistive device but has a straight cane that she keeps near her bed at night if she feels lightheaded upon getting up. Patient had tendency to hold onto furniture and alicea for support. Patient's friend has been cooking and cleaning for her. Patient reports that she was able to cook when able. Patient showered with use of shower seat and dressed herself. Patient's friend did the driving. Subjective: Patient is lying in bed upon therapist entering the room. Patient reports that she came in because she was short of breath with movement and had a rapid heart rate for approximately 1-2 weeks that became worse prior to admission. Patient reports that she is feeling somewhat better today. Patient reports that she is still short of breath especially with walking but that it is getting better. Patient reports that she is tired due to not able to sleep well. Patient reports that she is to receive 1 unit of blood today. Patient presently complains of pain across her shoulders and upper back region. Patient reports soreness in her arms, right greater than left. Patient has intermittent numbness to the fourth and fifth fingers of the right hand. Patient complains of feeling weak and more unsteady over the past week. Patient reports that she has history of panic attacks. Patient appears to be alert and oriented but demonstrates decreased safety awareness. Patient tends to be slow to respond to therapist at times. ROM: Active range of motion of bilateral upper extremities is within functional limits except for right elbow extension 0-40 degrees. Active range of motion of bilateral lower extremities is within functional limits with dorsiflexion 2 degrees. Muscle Strength: Patient is right-hand dominant. Refer to OT evaluation for muscle strength of bilateral upper extremities. Muscle strength of bilateral lower extremities is generally 3+/5 for hip abductors, plantar flexors to 4-/5 for hip flexors to 4/5 for knee flexors, knee extensors and dorsiflexors. Patient has decreased endurance to repetitive activities with bilateral lower extremities. Neurological: Patient presently complains of pain in the thoracic region and across bilateral posterior shoulders at 6-7/10 on the pain scale. Patient reports soreness in bilateral upper extremities at 6-7/10 on the pain scale right and 5/10 on the pain scale left. Patient experiences intermittent numbness to the fourth and fifth digits of the right hand. Fine motor coordination appears to be intact to bilateral hands. Integumentary/Circulatory: Patient has an IV located in the right upper extremity. Cardiopulmonary: Refer to patient's past medical history. Patient is currently on telemetry. Patient is noted to become short of breath with functional mobility. Patient requires verbal and physical cues as well as physical demonstration for proper deep breathing techniques. Patient tends to be a mouth breather and to breathe at a faster pace. Functional Activity: Bed mobility: Standby assist with use of side rail. Supine to sit: Standby assist with use of side rail. Sit to supine: Standby assist with use of side rail. Sit to stand: +2 contact guard with verbal and physical cues for proper hand placement and safety. Stand to sit: +2 contact guard with verbal and physical cues for proper hand placement and safety. Ambulation/Stairs: Patient ambulates 50 feet without an assistive device with contact guard to minimal assist and contact guard of another. Patient is noted to have a very narrow base of support. Patient tends to internally rotate the left lower extremity causing patient to have the scissoring gait pattern. Patient is noted to be unsteady which increases with fatigue. Patient is noted to be unsteady with 2 losses of balance requiring minimal assist and contact guard of another to regain. Patient requires verbal and physical cues for proper deep breathing techniques. Balance: Standing dynamic balance: Poor plus. Endurance: Endurance for ambulation: Poor plus. Patient Education: Patient is educated in the role of physical therapy, proper deep breathing techniques and safety techniques. Patient requires reinforcement during the evaluation. Physical Therapy Goals to be achieved in 5-7 days. 1. Increase strength and endurance of bilateral lower extremities to promote increased safety, increased gait components and increased independence with functional mobility with decreased risk of falls by performing range of motion/strength and exercises to patient's tolerance. 2. Modified independent for bed mobility. 3. Modified independent for transfers supine to sit and sit to supine. 4. Standby assist for transfers sit stand and stand to sit with increased safety to promote safe and independent functional transfers with decreased risk of falls upon return home. 5. Standby assist for ambulation at least 180 feet with increased gait components, increased safety and an appropriate assistive device to promote functional mobility with decreased risk of falls upon return home. X. Standing dynamic balance to at least fair. Patient Goals: Patient's goals are to feel better, to be stronger and to return home. Rehab Potential: Fair. Treatment Plan: Patient will be seen 1-2 treatment sessions per day 5 days per week and 1 treatment session per day one day per week consisting of therapeutic exercise bilateral lower extremities to increase strength and endurance for improved functional mobility, bed mobility training, transfer training, and gait training. Emphasis will be placed on increased gait components and safety. As patient's status improves, patient would benefit from standing balance activities. If patient continues to be unsteady, patient may be instructed in the use of an assistive device to increase safety and independence. Discharge Plan: Patient will be discharged from physical therapy upon achievement of above goals, physicians orders, and/or plateau in function. At this time, patient we further assessed for appropriate discharged needs such as home health therapy and an appropriate assistive device depending on patient's progress while on acute care. Post Treatment Positioning: Patient is lying in bed with bed alarm on. Patient has call light, phone, and tray table within reach. Nursing staff is aware of patient's position. Treatment Minutes: Evaluation in the a.m. Evaluation Complexity Level: Moderate Impairment code and severity modifier chosen (All patient's with Medicare Medicare HMOs): CURRENT : G8978 CL 60-79% impaired GOAL: G8979 CJ 20-39% impaired Justification: Patient demonstrates decreased strength and endurance of lower extremities as well as decreased balance, decreased safety and decreased functional mobility with decreased gait components. Patient requires skilled physical therapy intervention at this time. Thank you for this referral. Please feel free to call with any questions or concerns. Dictated By: Feliberto KIRAN [id number], Zamzam Courtney 09/04/17 1011 Dictated Date/Time: 08/16/17 1030 Transcribed Date/Time: 08/16/17 1858 Normal [facility] ROULEAUXon 08-16-2017 ROULEAUX PRESENT Abnormal [facility] Comment on above: Order Comment: @07/29 05/15 0639: SMUDGE CELLS added. RFLXG = MORPH.@08/16/17 0639: GIANT PLATELETS added. RFLXG = MORPH.@08/16/17 0639: POLYCHROM added. RFLXG = MORPH.@08/16/17 0639: HYPERCHROM added. RFLXG = MORPH.@08/16/17 0639: HYPOCHROM added. RFLXG = MORPH.@08/16/17 0639: POIK added. RFLXG = MORPH.@08/16/17 0639: BASO STIP added. RFLXG = MORPH.@08/16/17 0639: ANISO added. RFLXG = MORPH.@08/16/17 0639: MICRO added. RFLXG = MORPH.@08/16/17 0639: MACRO added. RFLXG = MORPH.@08/16/17 0639: SPHERE added. RFLXG = MORPH.@08/16/17 0639: ELLIPTO added. RFLXG = MORPH.@08/16/17 0639: SIDEROCYTE added. RFLXG = MORPH.@08/16/17 0639: ADARSH BODIES added. RFLXG = MORPH.@08/16/17 0639: PELGER-HUET added. RFLXG = MORPH.@08/16/17 0639: ANA LILIA BODIES added. RFLXG = MORPH.@08/16/17 0639: SICKLE added. RFLXG = MORPH.@08/16/17 0639: TARGET added. RFLXG = MORPH.@08/16/17 0639: TEAR added. RFLXG = MORPH.@08/16/1739: OVAL added. RFLXG = MORPH.@08/16/1739: STOMATO added. RFLXG = MORPH.@08/16/1739: HELMET CELLS added. RFLXG = MORPH.@08/16/17 0639: HJ BODIES added. RFLXG = MORPH.@08/16/1739: TOXIC GRAN added. RFLXG = MORPH.@08/16/17 0639: TOXIC VAC added. RFLXG = MORPH.@08/16/1739: DOHLE BODIES added. RFLXG = MORPH.@08/16/17638: NIMISHA CELLS added. RFLXG = MORPH.@08/16/17638: CRENATED RBC added. RFLXG = MORPH.@08/16/1739: ACANTHO added. RFLXG = MORPH.@08/16/17638: ROLY RODS added. RFLXG = MORPH.@08/16/1739: ROULEAUX added. RFLXG = MORPH.@08/16/1739: SCHISTO added. RFLXG = MORPH.@08/16/1739: PARASITES added. RFLXG = MORPH. Performed By: #### C MP, PT, CBC, PTT, ESR, CPK 1, CKMB 1, TROP 1, ST OCC BLD ####Main Lab - [id number] [place], [place] [address] STREP A SCREENon 08-16-2017 STREP A SCREEN STREP A SCREEN: NEG:X/NEG/24/48 NO GROUP A BETA HEMOLYTIC STREP ISOLATED @ 48 HOURS Normal [facility] Comment on above: Performed By: #### C MP, PT, CBC, PTT, ESR, CPK 1, CKMB 1, TROP 1, ST OCC BLD ####Main Lab - [id number] [place], [place] [address] TROPONIN Ion 08-16-2017 Troponin I.cardiac mass conc ng/mL Normal 0.0-0.03 [facility] Comment on above: Result Comment: Refe rence Interval < or = 0.03 ng/mLClinical Correlation Needed 0.03 - 0.12 ng/mLAMI Cutoff, Presumptive = or > 0.12 ng/mL Performed By: #### C MP, PT, CBC, PTT, ESR, CPK 1, CKMB 1, TROP 1, ST OCC BLD ####Main Lab - [id number] [place] [address] TYPE AND AJYDO-PLEN-BWxx Erythrocytes (RBC) TRANSFUSED 08/16/17 1220 Normal [facility] Comment on above: Performed By: #### C MP, PT, CBC, PTT, ESR, CPK 1, CKMB 1, TROP 1, ST OCC BLD ####Main Lab - [id number] [place] [address] TYPE AND SCREENon 08-16-2017 ANTIBODY SCREEN Negative Normal [facility] Comment on above: Order Comment: @Resu lts at Enter/Edit Orders as of 08/16/17 0813 ...@Test View Group: MOST RECENT HGB HCT RESULTS@ LABORATORY@Date Time Test Result Flag Normal Range@08/16/17 0555 HGB 7.8 *L 11.6-14.9 g/dL@08/16/17 0555 HCT 24.5 *L 34.8-45.0 %@@ Performed By: #### C MP, PT, CBC, PTT, ESR, CPK 1, CKMB 1, TROP 1, ST OCC BLD ####Main Lab - [id number] [place] [address] BLOOD TYPE Positive Normal [facility] Comment on above: Order Comment: @Resu lts at Enter/Edit Orders as of 08/16/17 0813 ...@Test View Group: MOST RECENT HGB HCT RESULTS@ LABORATORY@Date Time Test Result Flag Normal Range@08/16/17 0555 HGB 7.8 *L 11.6-14.9 g/dL@08/16/17 0555 HCT 24.5 *L 34.8-45.0 %@@ Performed By: #### C MP, PT, CBC, PTT, ESR, CPK 1, CKMB 1, TROP 1, ST OCC BLD ####Main Lab - [id number] [place] [address] BASIC METABOLIC PANELon 12-1 Anion gap 20 mmol/L High 9-18 [facility] Comment on above: Performed By: #### C MP, PT, CBC, PTT, ESR, CPK 1, CKMB 1, TROP 1, ST OCC BLD ####Main Lab - [id number] [place] [address] BUN (urea nitrogen) 37 mg/dL High 7- [facility] Comment on above: Performed By: #### C MP, PT, CBC, PTT, ESR, CPK 1, CKMB 1, TROP 1, ST OCC BLD ####Main Lab - [id number] [place] [address] BUN/Creatinine Ratio 32.7 Ratio Normal 5.0-42.0 [facility] Comment on above: Performed By: #### C MP, PT, CBC, PTT, ESR, CPK 1, CKMB 1, TROP 1, ST OCC BLD ####Main Lab - [id number] [place] [address] Calcium 8.5 mg/dL Normal 8.4-10.2 [facility] Comment on above: Performed By: #### C MP, PT, CBC, PTT, ESR, CPK 1, CKMB 1, TROP 1, ST OCC BLD ####Main Lab - [id number] [place] [address] Chloride 102 mmol/L Normal 98-107 [facility] Comment on above: Performed By: #### C MP, PT, CBC, PTT, ESR, CPK 1, CKMB 1, TROP 1, ST OCC BLD ####Main Lab - [id number] [place] [address] CO2 14 mmol/L Low 22-31 [facility] Comment on above: Performed By: #### C MP, PT, CBC, PTT, ESR, CPK 1, CKMB 1, TROP 1, ST OCC BLD ####Main Lab - [id number] [place] [address] Creatinine 44.89 mg/dL Normal [facility] Comment on above: Result Comment: COCK CROFT-GAULT FORMULA 1973 Performed By: #### C MP, PT, CBC, PTT, ESR, CPK 1, CKMB 1, TROP 1, ST OCC BLD ####Main Lab - [id number] [place] [address] Creatinine 1.13 mg/dL Normal 0.80-1.30 [facility] Comment on above: Performed By: #### C MP, PT, CBC, PTT, ESR, CPK 1, CKMB 1, TROP 1, ST OCC BLD ####Main Lab - [id number] [place] [address] eGFR (non-black) 49.000 mL/min/{1.73_m2} Normal [facility] Comment on above: Performed By: #### C MP, PT, CBC, PTT, ESR, CPK 1, CKMB 1, TROP 1, ST OCC BLD ####Main Lab - [id number] [place] [address] Glucose mass conc 102 mg/dL High 70-99 [facility] Comment on above: Result Comment: The glucose range is based on recommendations from theAmerican Diabetes Association for fasting blood glucoserange. Performed By: #### C MP, PT, CBC, PTT, ESR, CPK 1, CKMB 1, TROP 1, ST OCC BLD ####Main Lab - [id number] [place] [address] Potassium molar conc 4.8 mmol/L Normal 3.6-5.0 [facility] Comment on above: Performed By: #### C MP, PT, CBC, PTT, ESR, CPK 1, CKMB 1, TROP 1, ST OCC BLD ####Main Lab - [id number] [place] [address] Sodium 131 mmol/L Low 137-145 [facility] Comment on above: Performed By: #### C MP, PT, CBC, PTT, ESR, CPK 1, CKMB 1, TROP 1, ST OCC BLD ####Main Lab - [id number] [place], [place] [address] Age 57 Years Normal [facility] Comment on above: Performed By: #### C MP, PT, CBC, PTT, ESR, CPK 1, CKMB 1, TROP 1, ST OCC BLD ####Main Lab - [id number] [place], [place] [address] C-REACTIVE PROTEINon 017 C reactive protein (CRP) 6.30 mg/dL High 0.0-1.0 [facility] Comment on above: Performed By: #### C MP, PT, CBC, PTT, ESR, CPK 1, CKMB 1, TROP 1, ST OCC BLD ####Main Lab - [id number] [place] [address] CARDIAC ENZYMESon 08-15-2017 CKMB 10.9 ng/mL Critically high 0.0-3.7 [facility] Comment on above: Result Comment: Cons istent with previous results.Critical Result CKMB: Called to: MARINE SALGADO RN at:17:15:52 by:PAOLA Read back by:MARINE SALGADO RN Performed By: #### C MP, PT, CBC, PTT, ESR, CPK 1, CKMB 1, TROP 1, ST OCC BLD ####[facility] - [id number] [place] [address] Troponin I.cardiac mass conc 0.05 ng/mL High 0.0-0.03 [facility] Comment on above: Result Comment: Refe rence Interval < or = 0.03 ng/mLClinical Correlation Needed 0.03 - 0.12 ng/mLAMI Cutoff, Presumptive = or > 0.12 ng/mL Performed By: #### C MP, PT, CBC, PTT, ESR, CPK 1, CKMB 1, TROP 1, ST OCC BLD ####Main Lab - [id number] [place] [address] Creatine kinase (CK) 162 U/L Normal 55-170 [facility] Comment on above: Performed By: #### C MP, PT, CBC, PTT, ESR, CPK 1, CKMB 1, TROP 1, ST OCC BLD ####Main Lab - [id number] [place], [place] [address] CKMB 12.8 ng/mL Critically high 0.0-3.7 [facility] Comment on above: Result Comment: Crit ical Result CKMB: Called to: ANDREINA LAROSE RN at:11:05:46 by:BLONG Read back by:ANDREINA LAROSE RN Performed By: #### C MP, PT, CBC, PTT, ESR, CPK 1, CKMB 1, TROP 1, ST OCC BLD ####Main Lab - [id number] [place] [address] Creatine kinase (CK) 165 U/L Normal 55-170 [facility] Comment on above: Performed By: #### C MP, PT, CBC, PTT, ESR, CPK 1, CKMB 1, TROP 1, ST OCC BLD ####Main Lab - [id number] [place] [address] Troponin I.cardiac mass conc 0.05 ng/mL High 0.0-0.03 [facility] Comment on above: Result Comment: Refe rence Interval < or = 0.03 ng/mLClinical Correlation Needed 0.03 - 0.12 ng/mLAMI Cutoff, Presumptive = or > 0.12 ng/mL Performed By: #### C MP, PT, CBC, PTT, ESR, CPK 1, CKMB 1, TROP 1, ST OCC BLD ####Main Lab - [id number] [place], [place] [address] CBC WITH AUTO DIFFon 12-18-2 017 Basophils Auto #/vol (Bld) 0.0 10 3/uL Normal 0.0-0.2 [facility] Comment on above: Performed By: #### C MP, PT, CBC, PTT, ESR, CPK 1, CKMB 1, TROP 1, ST OCC BLD ####Main Lab - [id number] [place], [place] [address] Basophils/100 WBC Auto (Bld) 0.3 % Normal 0.0-1.0 [facility] Comment on above: Performed By: #### C MP, PT, CBC, PTT, ESR, CPK 1, CKMB 1, TROP 1, ST OCC BLD ####Main Lab - [id number] [place], [place] [address] Eosinophils 0.0 10 3/uL Normal 0.0-0.7 [facility] Comment on above: Performed By: #### C MP, PT, CBC, PTT, ESR, CPK 1, CKMB 1, TROP 1, ST OCC BLD ####Main Lab - [id number] [place], [place] [address] Eosinophils/100 leukocytes 0.1 % Normal 0.0-5.0 [facility] Comment on above: Performed By: #### C MP, PT, CBC, PTT, ESR, CPK 1, CKMB 1, TROP 1, ST OCC BLD ####Main Lab - [id number] [place] [address] Erythrocyte distribution width Auto Ratio (RBC) 25.0 % High 11.5-14.0 [facility] Comment on above: Performed By: #### C MP, PT, CBC, PTT, ESR, CPK 1, CKMB 1, TROP 1, [facility] BLD ####Main Lab - [id number] [place] [address] Erythrocytes (RBC) 4.71 x10 6/uL Normal 3.89-5.30 [facility] Comment on above: Performed By: #### C MP, PT, CBC, PTT, ESR, CPK 1, CKMB 1, TROP 1, ST OCC BLD ####Main Lab - [id number] [place], [place] [address] Hematocrit (HCT) 29.2 % Low 34.8-45.0 [facility] Comment on above: Performed By: #### C MP, PT, CBC, PTT, ESR, CPK 1, CKMB 1, TROP 1, ST OCC BLD ####Main Lab - [id number] [place], [place] [address] Hemoglobin mass conc (Bld) 9.0 g/dL Low 11.6-14.9 [facility] Comment on above: Performed By: #### C MP, PT, CBC, PTT, ESR, CPK 1, CKMB 1, TROP 1, ST OCC BLD ####Main Lab - [id number] [place] [address] Lymphocytes 1.9 10 3/uL Normal 1.0-3.5 [facility] Comment on above: Performed By: #### C MP, PT, CBC, PTT, ESR, CPK 1, CKMB 1, TROP 1, ST OCC BLD ####Main Lab - [id number] [place] [address] Lymphocytes/100 leukocytes 13.4 % Low 24.0-44.0 [facility] Comment on above: Performed By: #### C MP, PT, CBC, PTT, ESR, CPK 1, CKMB 1, TROP 1, ST OCC BLD ####Main Lab - [id number] [place] [address] MCH 19.1 pg Low 27.0-31.0 [facility] Comment on above: Performed By: #### C MP, PT, CBC, PTT, ESR, CPK 1, CKMB 1, TROP 1, ST OCC BLD ####Main Lab - [id number] [place] [address] MCHC mass conc (RBC) 30.8 g/dL Low 32.0-36.0 [facility] Comment on above: Performed By: #### C MP, PT, CBC, PTT, ESR, CPK 1, CKMB 1, TROP 1, ST OCC BLD ####Main Lab - [id number] [place] [address] MCV 61.9 fL Low 78.0-100.0 [facility] Comment on above: Performed By: #### C MP, PT, CBC, PTT, ESR, CPK 1, CKMB 1, TROP 1, ST OCC BLD ####Main Lab - [id number] [place] [address] Monocytes 1.8 10 3/uL High 0.2-0.8 [facility] Comment on above: Performed By: #### C MP, PT, CBC, PTT, ESR, CPK 1, CKMB 1, TROP 1, ST OCC BLD ####Main Lab - [id number] [place], [place] [address] Monocytes/100 leukocytes 12.8 % High 1.7-9.3 [facility] Comment on above: Performed By: #### C MP, PT, CBC, PTT, ESR, CPK 1, CKMB 1, TROP 1, ST OCC BLD ####Main Lab - [id number] [place], [place] [address] Neutrophils 10.2 10 3/uL High 1.5-6.7 [facility] Comment on above: Performed By: #### C MP, PT, CBC, PTT, ESR, CPK 1, CKMB 1, TROP 1, ST OCC BLD ####Main Lab - [id number] [place], [place] [address] Platelet mean volume (PMV) 8.6 fL Normal 6.0-9.5 [facility] Comment on above: Performed By: #### C MP, PT, CBC, PTT, ESR, CPK 1, CKMB 1, TROP 1, ST OCC BLD ####Main Lab - [id number] [place], [place] [address] Platelets 358 10 3/uL Normal 150-450 [facility] Comment on above: Performed By: #### C MP, PT, CBC, PTT, ESR, CPK 1, CKMB 1, TROP 1, ST OCC BLD ####Main Lab - [id number] [place], [place] [address] Segmented Neutrophils/100 leukocytes 73.4 % High 36.0-66.0 [facility] Comment on above: Performed By: #### C MP, PT, CBC, PTT, ESR, CPK 1, CKMB 1, TROP 1, ST OCC BLD ####Main Lab - [id number] [place], [place] [address] WBC (Leukocytes) 13.9 10 3/uL High 4.0-10.5 [facility] Comment on above: Performed By: #### C MP, PT, CBC, PTT, ESR, CPK 1, CKMB 1, TROP 1, ST OCC BLD ####Main Lab - [id number] [place] [address] CREATINE KINASEon 12-18-2017 Creatine kinase (CK) 160 U/L Normal 55-170 [facility] Comment on above: Performed By: #### C MP, PT, CBC, PTT, ESR, CPK 1, CKMB 1, TROP 1, ST OCC BLD ####Main Lab - [id number] [place], [place] [address] Creatine kinase (CK) 193 U/L High 55-170 [facility] Comment on above: Performed By: #### C MP, PT, CBC, PTT, ESR, CPK 1, CKMB 1, TROP 1, ST OCC BLD ####Main Lab - [id number] [place], [place] [address] CREATINE KINASE MBon 017 CKMB 11.5 ng/mL Critically high 0.0-3.7 [facility] Comment on above: Result Comment: Crit ical Result CKMB: Called to: LULA PITTMAN RN at:07:42:38 by:KATT Read back by:LULA PITTMAN RN Performed By: #### C MP, PT, CBC, PTT, ESR, CPK 1, CKMB 1, TROP 1, ST OCC BLD ####Main Lab - [id number] [place] [address] CKMB 13.4 ng/mL Critically high 0.0-3.7 [facility] Comment on above: Result Comment: Crit ical Result CKMB: Called to: AILEEN COOK RN at:02:41:06 by:TAMMY Read back by:AILEEN COOK RN Performed By: #### C MP, PT, CBC, PTT, ESR, CPK 1, CKMB 1, TROP 1, ST OCC BLD ####Main Lab - [id number] [place], [place] [address] CT ANGIO CHEST W/CONTRASTon 08-15-2017 CT ANGIO CHEST W/CONTRAST [facility] [address] [place] [address] Diagnostic Imaging Report : [id number] Signed Name: BLAS LUJAN MRUN: [id number] : 1960 Loc: 3S Age / Sex: 57 / F ADM Status: ADM IN ADM Date: 08/14/17 Room/Bed: [facility] Ordering Physician: Shea Cesar MD Procedure: CT ANGIO CHEST W/CONTRAST Order Number(s): [id number] Ordered Date: 08/15/17 Ordered Time: 1235 EXAMINATION: CTA OF THE CHEST 08/15/2017 2:19 pm TECHNIQUE: CTA of the chest was performed after the administration of intravenous contrast. Multiplanar reformatted images are provided for review. MIP images are provided for review. Dose modulation, iterative reconstruction, and/or weight based adjustment of the mA/kV was utilized to reduce the radiation dose to as low as reasonably achievable. Post IV 75 mL Visipaque 320. COMPARISON: CT chest abdomen and pelvis 08/14/2017. MR lumbar spine 07/11/2017. HISTORY: evaluate for PE FINDINGS: No filling defects to suggest pulmonary embolism. Anatomic course and caliber of the thoracic aorta. Heart size within normal limits. Subcentimeter mediastinal lymph nodes in the AP window. Slightly enlarged pretracheal lymph node 12.9 mm. Possible enlarged subcarinal lymph node 22.7 mm. More prominent pleural effusion in the right lung extending from the base to the apex suggesting moderate volume. Adjacent compressive atelectasis in the right lower lung field and subsegmental atelectatic streaks as well. No pneumothorax. No gross consolidation in the left lung. The visualized abdominal anatomy suggests a small amount of perihepatic and perisplenic fluid appearing similar. Moderate anterior wedge compression of T11 vertebral body with irregular endplate contour and some sclerosis. Some sclerosis and Schmorl's node type defect superior endplate of T12 is similar. Findings are unchanged. IMPRESSION: No filling defects for pulmonary embolism. Increased volume of pleural effusion on the right with adjacent compressive and subsegmental atelectasis in the right lower lung field. Mediastinal lymph nodes as discussed above. Small amount of ascites fluid appears similar to previous exam. Similar compression deformity of T11 and irregular disc space at T11-12. Please see above. Dictated By: Errol Vigil DO Dictated Date/Time: 08/15/17 1426 Signed By: Peyman Vigil DO Signed Date/Time: 08/15/17 1442 Transcribed Date/Time: 08/15/17 1438 Normal [facility] D-DIMERon 08-15-2017 D-DIMER 1.58 ug/mL High 0.00-0.50 [facility] Comment on above: Result Comment: The D-Dimer assay can be used to assist in the diagnosis ofvenous thromboembolism. For the assay in use at [facility]), a D-Dimer cutoff of <0.50 ug/mL FEU has anegative predictive value of 99% for all patients suspectedof venous thromboembolism. Performed By: #### C MP, PT, CBC, PTT, ESR, CPK 1, CKMB 1, TROP 1, ST OCC BLD ####Main Lab - [id number] [place], [place] [address] ECHOCARDIOGRAMon 08-15-2017 ECHOCARDIOGRAM Ordered by an unspec ified provider. Invalid Interpretation Code [facility] Work Phone: ECHOCARDIOGRAM COMPLETEon ECHOCARDIOGRAM COMPLETE [facility] [address] [place], [place] [id number] Cardiovascular Imaging Report : [id number] Signed Name: BLAS LUJAN MRUN: [id number] : 1960 Loc: 3S Age / Sex: 57 / F ADM Status: ADM IN ADM Date: 08/14/17 Room/Bed: [facility] Ordering Physician: Tucker Horton MD Procedure: ECHOCARDIOGRAM COMPLETE Order Number(s): [id number] Ordered Date: 08/15/17 Ordered Time: 957 SEOSYNCVPROD [id number].PDF Transthoracic Echo Report Ht (in): 63 Wt (lb): 141 BSA: 1.7 Technologist: Naz Gonzalez RDCS Nurse: Stay Type: I Indications: dyspna, NSVT Procedure: A complete Transthoracic Echocardiogram was performed utilizing two-dimensional evaluation, color flow and spectral Doppler analysis. BP: 121 / 76 HR: 63 Rhythm: NSR Technical Quality: Good CONCLUSIONS Left ventricular ejection fraction is estimated at 65 %. Grade II/IV diastolic dysfunction, moderately elevated filling pressures. Normal right ventricular size and systolic function, RVSP 43.9 mmHg. Moderate pulmonary hypertension. Mildly increased right atrial size. Severely increased left atrial size. Mxyomatous changes of both leaflets. Severe mitral valve regurgitation. Prolapse of the posterior mitral valve leaflet. Prolapse of the anterior mitral valve leaflet. Trace aortic valve regurgitation. Mild tricuspid valve regurgitation. Moderate pulmonary valve regurgitation. Small pericardial effusion. Small pericardial effusion. Dilated IVC. FINDINGS Left Ventricle Moderately increased left ventricular diastolic diameter. Severely increased left ventricular diastolic volume. Normal left ventricular cavity size. Normal left ventricular wall thickness. Normal left ventricular systolic function. Left ventricular ejection fraction is estimated at 65 %. Grade II/IV diastolic dysfunction, moderately elevated filling pressures. Right Ventricle Normal right ventricular size and systolic function, RVSP 43.9 mmHg.moderate pulmonary hypertension. Right Atrium Mildly increased right atrial size. Left Atrium Severely increased left atrial volume. Severely increased left atrial area. Severely increased left atrial size. Mitral Valve Structurally normal mitral valve. Prolapse of the anterior mitral valve leaflet. Prolapse of the posterior mitral valve leaflet. No mitral valve stenosis. Severe mitral valve regurgitation. Mxyomatous changes of both leaflets. Aortic Valve Structurally normal trileaflet aortic valve. No aortic valve stenosis. Trace aortic valve regurgitation. Tricuspid Valve Structurally normal tricuspid valve. No tricuspid valve stenosis. Mild tricuspid valve regurgitation. Pulmonic Valve Structurally normal pulmonic valve. No pulmonary valve stenosis. Moderate pulmonary valve regurgitation. Pericardium Small pericardial effusion. Pericardial effusion located posteriorly. Echocardiographic findings suggest a non hemodynamically significant pericardial effusion. IVC Ivc shows less than 50 % respiratory variation. Dilated IVC. Aorta Normal ascending aorta dimension. MEASUREMENTS (Male / Female) Normal Values 2D ECHO Body Surface Area 1.7 m? LV Diastolic Diameter PLAX 6.0 cm 4.2 - 5.9 / 3.9 - 5.3 cm LV Systolic Diameter PLAX 3.4 cm LV Fractional Shortening PLAX 43.7 % IVS Diastolic Thickness 1.0 cm 0.6 - 1.0 / 0.6 - 0.9 cm LVPW Diastolic Thickness 0.8 cm 0.6 - 1.0 / 0.6 - 0.9 cm LV Ejection Fraction 2D Teich 74.0 % LV Diastolic Volume MOD BP 142.0 ml 67 - 155 / 56 - 104 ml LV Systolic Volume MOD BP 33.7 ml 22 - 58 / 19 - 49 ml LV Ejection Fraction MOD BP 76.3 % >= 55 % LV Stroke Volume MOD BP 108.3 ml LA Area 4C View 40.2 cm? <= 20 cm? LA Area 2C View 40.5 cm? <= 20 cm? LA Volume 200.5 ml 18 - 58 / 22 - 52 ml LA Volume Index 118.1 ml/m? 16 - 28 ml/m? LA Systolic Volume 2C AL 195.2 ml LA Systolic Volume 4C AL 199.0 ml Right Atrial Area 29.4 cm? Ascending Aorta Diameter 3.1 cm IVC Diameter Expiration 3.0 cm M-MODE Aortic Root Diameter MM 3.7 cm LA Systolic Diameter MM 6.0 cm LA Ao Ratio MM 1.7 DOPPLER AV Peak Velocity 1.3 m/s AV Peak Gradient 7.0 mmHg LVOT Peak Velocity 1.1 m/s LVOT Peak Gradient 4.7 mmHg LVOT Mean Velocity 0.7 m/s LVOT Mean Gradient 2.5 mmHg LVOT Velocity Time Integral 19.0 cm MV Peak Velocity 1.8 m/s MV Peak Gradient 13.7 mmHg MV Mean Velocity 0.8 m/s MV Mean Gradient 3.1 mmHg MV Velocity Time Integral 48.4 cm MV Deceleration [place] 3.6 m/s? MV Pressure Half Time 107.4 ms MV Area PHT 2.0 cm? MR Peak Velocity 4.7 m/s MR Peak Gradient 88.3 mmHg MR Velocity Time Integral 118.7 cm MR Flow Rate PISA 486.9 ml/s MR ERO PISA 1.0 cm? MR Regurgitant Volume PISA 123.0 ml E/e' Ratio 14.7 Mitral E Point Velocity 170.5 cm/s Mitral A Point Velocity 93.4 cm/s Mitral E to A Ratio 1.8 MV Deceleration Time 225.4 ms TR Peak Velocity 3.0 m/s TR Peak Gradient 35.9 mmHg Right Atrial Pressure 8.0 mmHg Pulmonary Artery Systolic Pressu 43.9 mmHg Right Ventricular Systolic Press 43.9 mmHg PV Peak Velocity 0.6 m/s PV Peak Gradient 1.6 mmHg PI Peak Velocity 1.6 m/s PI Peak Gradient 9.9 mmHg Pulmonary Artery Diastolic Press 17.9 mmHg RVOT Peak Velocity 0.4 m/s RVOT Peak Gradient 0.8 mmHg RVOT Mean Velocity 0.3 m/s RVOT Mean Gradient 0.4 mmHg RVOT Velocity Time Integral 8.9 cm Shea Cesar MD (Electronically Signed) Final Date: 15 August 2017 14:54 Amended: 16 August 2017 17:44 Dictated By: Shea Cesar MD Dictated Date/Time: 08/15/17 1310 Signed By: Shea Cesar MD, MD Signed Date/Time: 08/16/17 1745 Transcribed Date/Time: 08/15/17 1310 Normal [facility] LACTATEon 08-15-2017 Lactate 1.6 mmol/L Normal 0.7-2.4 [facility] Comment on above: Performed By: #### C MP, PT, CBC, PTT, ESR, CPK 1, CKMB 1, TROP 1, ST OCC BLD ####Main Lab - [id number] [place] [address] MRI LUMBAR SPINE W/O CONTRAS Ton 08-15-2017 MRI LUMBAR SPINE W/O CONTRAST [facility] [address] [place] [address] Diagnostic Imaging Report : [id number] Signed Name: BLAS LUJAN MRUN: [id number] : 1960 Loc: 3S Age / Sex: 57 / F ADM Status: ADM IN ADM Date: 08/14/17 Room/Bed: [facility] Ordering Physician: Tucker Horton MD Procedure: MRI LUMBAR SPINE W/O CONTRAST Order Number(s): [id number] Ordered Date: 08/15/17 Ordered Time: 001 EXAMINATION: MRI OF THE LUMBAR SPINE WITHOUT CONTRAST, 08/15/2017 8:15 am TECHNIQUE: Multiplanar multisequence MRI of the lumbar spine was performed without the administration of intravenous contrast. COMPARISON: 07/11/2017 HISTORY: Probable diskitis FINDINGS: Mild signal alteration in contour deformity in the inferior endplate of T11 noted consistent with inferior endplate compression fracture and/or Schmorl's node which appears chronic with stable 20- 25% loss vertebral body height. Underlying advanced disc space narrowing also noted T11-T12 Stable bilateral spondylolysis and 8.5 mm anterior subluxation L5-S1 with underlying severe disc space narrowing, foraminal osteophyte formation and exiting nerve compression which is worse on the right. No new fractures or new/increasing subluxations. Other than T11, vertebral body heights, pedicles are intact. Other than L5-S1, spinal alignment is intact. No acute abnormality of the spinal cord or conus medullaris. T9-T10, T10-T11: No significant disc bulging, spinal canal stenosis, neural foraminal stenosis, facet ligamentous hypertrophy. No nerve root or spinal nerve compression at these levels. T11-T12: Moderate-advanced intervertebral disc space narrowing, mild -moderate circumferential disc bulging unchanged compared to prior study. No significant central spinal canal stenosis, neural foraminal stenosis, nerve root or spinal nerve compression. T12-L1, L1-L 2, L2-L3, L3-L4: No significant disc bulging, spinal canal stenosis, neural foraminal stenosis, facet ligamentous hypertrophy. L4-L5: Circumferential disc bulging without focal protrusion, extrusion or significant interval change. Bilateral spinal nerve effacement noted which is worse on the left. No significant central spinal canal stenosis, facet ligamentous hypertrophy. L5-S1: Stable advanced intervertebral disc space narrowing, stable grade 2 spondylolisthesis and foraminal osteophyte formation producing bilateral foraminal stenosis markedly worse on the right. Bilateral exiting spinal nerve effacement noted which is worse on the right. Visualized paraspinal soft tissues demonstrate no acute abnormalities. IMPRESSION: No MRI evidence of acute/ new abnormality lumbar spine or significant interval change compared to 07/11/2017. 1. Stable/ old mild inferior endplate compression fracture and Schmorl's node defects T11 with mild disc bulging however, no significant spinal canal stenosis, neural foraminal stenosis or nerve compression. 2. Stable grade 2 spondylolisthesis L5-S1 with approximately 8.5- 9 mm anterior subluxation, severe disc space narrowing and foraminal osteophyte formation producing bilateral spinal nerve effacement/mild compression which is markedly worse on the right. 3. Mild circumferential disc bulging L4-L5 which contacts/minimally effaces the exiting spinal nerves bilaterally which is subjectively worse on the left. . Dictated By: Awais Asencio DO Dictated Date/Time: 08/15/1728 Signed By: Awais Asencio DO Signed Date/Time: 08/15/17 0845 Transcribed Date/Time: 08/15/17839 Normal [facility] MRI THORACIC SPINE W/O Jose 08-15-2017 MRI THORACIC SPINE W/O CON [facility] [address] [place], [place] [id number] Diagnostic Imaging Report : [id number] Signed Name: BLAS LUJAN MRUN: [id number] : 1960 Loc: 3S Age / Sex: 57 / F ADM Status: ADM IN ADM Date: 08/14/17 Room/Bed: [facility] Ordering Physician: Tucker Horton MD Procedure: MRI THORACIC SPINE W/O CON Order Number(s): [id number] Ordered Date: 08/15/17 Ordered Time: 13 EXAMINATION: MRI OF THE THORACIC SPINE WITHOUT CONTRAST 08/15/2017 8:15 am TECHNIQUE: Multiplanar multisequence MRI of the thoracic spine was performed without the administration of intravenous contrast. COMPARISON: 07/11/2017, lumbar spine MRI 03/22/2017. HISTORY: probable discitis FINDINGS: Cortical irregularity and disc space narrowing noted T11-T12 most consistent with near completely healed mild inferior endplate compression fracture or Schmorl's node deformity without significant interval change compared to prior studies. No significant associated marrow edema or paraspinal soft tissue inflammatory change. Postoperative and degenerative changes of the incidentally visualized cervical spine also noted and unchanged as visualized compared to prior study. Current study demonstrates no MRI evidence of acute fracture or subluxation. Other than T11 which demonstrates stable 20- 25% loss vertebral body height, vertebral body heights, pedicles, facet joints, spinal alignment in the thoracic spine is intact. No significant thoracic disc bulging, spinal canal stenosis, neural foraminal stenosis, facet ligamentous hypertrophy and no thoracic nerve compression. Moderate -large right pleural effusion incidentally noted. IMPRESSION: Stable chronic mild inferior endplate compression fracture and Schmorl's node deformities at T11 with approximately 20- 25% loss vertebral body height, stable postoperative and degenerative changes of incidentally visualized cervical spine as visualized. Otherwise, no acute MRI abnormality thoracic spine or thoracic spinal cord noted. 1. Moderate-large right pleural effusion of uncertain etiology. 2. Multilevel advanced postoperative and degenerative change of the cervical spine. Dedicated cervical MRI recommended if clinical concern of radiculopathy or nerve compression. Dictated By: Awais Asencio DO Dictated Date/Time: 08/15/17 0851 Signed By: Awais Asencio DO Signed Date/Time: 08/15/17 0905 Transcribed Date/Time: 08/15/17 0900 Normal [facility] PERSONAL HISTORY AND PHYSICA Negro 08-15-2017 PERSONAL HISTORY AND PHYSICAL [address] [place] [address] PERSONAL HISTORY AND PHYSICAL : [phone] Signed [id number]: [id number] : 1960 Loc: 3S Age / Sex: 57/ F Adm Status: DIS IN Adm Date:08/14/17 Room/Bed: [facility] DATE OF SERVICE: 08/14/2017. CHIEF COMPLAINT: Shortness of breath, tachycardia, and palpitation and generalized weakness. HISTORY OF PRESENT ILLNESS: This is a 57-year-old female with history of COPD, heart murmur, hypertension and anxiety/depressive disorder, who presents with the above. The patient reported progressive dyspnea on exertion to shortness of breath with this minimal activity over the last 1 week. She endorsed associated generalized weakness, cough, tachycardia, and palpitations. The patient reported multiple other range of symptoms The patient reported multiple other symptoms including back pain, abdominal pain, chest wall pain, dry mouth, and nausea. At the ER, she was found to have WBC of 16.0 with neutrophils of 81.1%. Sodium was 129, potassium 5.7. Lactic acid 4.2. BNP was 2270 and troponin 0.05. Arterial blood gas performed on room air and reported pCO2 of 26 and pO2 of 76. Urinalysis was consistent with infection. She was started on IV Levaquin. However, she also received at least 2 units. However, she also received at least 2 liters of normal saline. REVIEW OF SYSTEMS: A 10-system review was performed. Pertinent history is as reported above. The patient has described reproducible pain with palpation at the left lower chest. She also reported ill feeling and dysuria. No vomiting or GI bleeding. No loss of consciousness or seizure activity. PAST MEDICAL HISTORY: 1. COPD. 2. Anxiety/depressive disorder. 2. GERD. 3. Chronic/recurrent back pain. 4. Osteoarthritis. 5. History of substance abuse. 6. Heart murmur. 7. Hypertension. 8. Dyslipidemia. 9. Hiatal hernia. PAST SURGICAL HISTORY: Back surgery. FAMILY HISTORY: Mother with hypertension, diabetes mellitus and rheumatoid arthritis. Brother with coronary artery disease. SOCIAL HISTORY: She lives alone. She does not smoke cigarettes. She denies significant alcohol use. Chart review indicated history of crack cocaine abuse. HOME MEDICATIONS: 1. Topamax. 2. Zanaflex 3. Carafate. 4. Omeprazole. 5. Gabapentin. 6. Advair Diskus. 7. Albuterol sulfate. 8. Xanax. ALLERGIES: 1. BROMFED DM. 2. CEFUROXIME. 3. VANCOMYCIN. 4. IBUPROFEN. 5. NAPROXEN. PHYSICAL EXAMINATION: VITAL SIGNS: Blood pressure of 116/76, pulse of 92, respiratory rate of 22, temperature of 98.2, saturation of 92 percent on 2 liters of oxygen via nasal cannula. GENERAL: Revealed middle-aged female who seems to be in mild respiratory distress. She gets more dyspneic/ tachypneic with minimal activity. She is alert and communicative. HEENT: Normocephalic. Atraumatic. NECK: Supple. CARDIOVASCULAR: First and second heart sounds audible and currently regular. LUNGS:. Diminished breath sounds with some bronchial breath sounds. CHEST: She reported diffuse point tenderness at the left lower chest region. BACK: She reported point tenderness in the mid back region. No swelling or erythema. ABDOMEN: Bowel sounds are audible. Soft. No significant tenderness. No distention. EXTREMITIES: No pedal edema. CENTRAL NERVOUS SYSTEM: Orientation as mentioned above. No facial asymmetry or dysarthria. No new focal neurologic weakness. DIAGNOSTIC DATA: As above. Also, hemoglobin 9.5, platelet is 413, bicarbonate is 15, BUN is 35, creatinine is 1.41. GFR is 38. AST 384, ALT 301, alkaline phosphatase 150, creatinine kinase 249, CK-MB 16.7. ASSESSMENT: 1. Exacerbation of diastolic congestive heart failure. 2. Acute on chronic respiratory failure with hypoxia. 3. Chronic obstructive pulmonary disease exacerbation. 4. Urinary tract infection. 5. Lactic acidosis. 6. Acute kidney injury. 7. Hyponatremia. 8. Elevated cardiac enzymes. 9. Chest pain, atypical. 10. Hyperkalemia. 11. Back pain, acute on chronic. PLAN: Admit to medical floor with telemetry. Serial cardiac enzymes and EKG. Continue empiric IV antibiotics. Followup culture results and monitor inflammatory markers. Trial of cautious diuresis. Monitor fluid input/output, weight, electrolytes and renal function. Trend lactic acid. Consider MRI of the lumbar spine. Pain management able, use opiate cautiously. Other supportive care and DVT prophylaxis will be provided. Dictated By: Tucker Horton MD 09/05/17 0904 09/05/17 0904 Dictated Date/Time: 08/14/17 2255 Transcribed Date/Time: 08/15/17 0652 Normal [facility] PROGRESS NOTEon 08-15-[address] [facility], [place], [place] [id number] PROGRESS NOTE : [id number] Signed Name: BLAS LUJAN MRUN: [id number] : 1960 Loc: 3S Age / Sex: 57/ F Adm Status: ADM IN Adm Date:08/14/17 Room/Bed: [facility] DATE: 08/15/2017. SUBJECTIVE: The patient does state that she is still having some shortness of breath as well as some nausea, but overall feeling a little bit better. No new complaints at this time. Cardiology was consulted for her slightly elevated troponin as well as her BNP. OBJECTIVE: VITAL SIGNS: Temperature is 98.1, pulse is 92, respirations 14 and blood pressure 104/66, and 1% on 1 liter. GENERAL: The patient is in no acute distress, but appears uncomfortable, is alert and oriented. NECK: Supple. There is no JVD. CHEST: Breath sounds are decreased bilaterally. CARDIAC: Regular rate and rhythm, but she does have a systolic murmur. ABDOMEN: Soft, mild diffuse tenderness. Normoactive bowel sounds. EXTREMITIES: There is no edema or rashes. LABORATORIES AND STUDIES: Her white blood cell count is 13.9, hemoglobin is 9.0, platelets 258, neutrophils 73.4%. Sodium is 131, potassium 4.8, chloride 102, carbon dioxide 14, BUN 37, creatinine 1.13, glucose 102, calcium 8.5, creatinine kinase 160, CK-MB 11.5, troponin 0.06. C-reactive protein 6.0. BNP is 2270 and urinalysis shows white blood cells. There is Strep agalactiae in her urine culture. MRI shows a stable old mild inferior endplate compression fracture and Schmorl's node defects at T11 with mild disk bulging. Stable grade 2 spondylolisthesis L5-S1 with 9 mm anterior subluxation and mild circumferential disk bulging at L4-L5 which contacts/minimally effaces the exiting spinal nerves bilaterally which is subjectively worse on the left. ASSESSMENT AND PLAN: 1. Exacerbation of diastolic heart failure, may be due to her underlying valvular disease. Continue current diuresis and monitor fluid status. Cardiology was consulted. Will continue the cardiac enzymes for now q. 6 hours until their evaluation and continue to monitor the patient's response. 2. Chronic obstructive pulmonary disease exacerbation. Continue breathing treatments. 3. Urinary tract infection. Would continue current empiric antibiotics. 4. Acute kidney injury. Is currently resolving. 5. Atypical chest pain and elevated cardiac enzymes. The patient is complaining more of shortness of breath and nausea this morning, but did have elevated BNP, probably most likely related to her heart failure. Troponins are very mild elevation. EKG does not show acute ischemic changes. I appreciate Cardiology's assistance and will continue to monitor. 6. Hyperkalemia, now resolved today. Her potassium went from 5.7-4.8. DISPOSITION. I appreciate cardiology evaluation. Will continue breathing treatments as well as Levaquin. Hospitalist admitted with gentle diuresis right now, currently not on any diuretics. We will defer to Cardiology that management and will continue to monitor the patient and also additionally for her back pain will consult Neurosurgery for assessment. Dictated By: Carmen Ford MD 08/17/17 0908 08/17/17 0908 Dictated Date/Time: 08/15/17 0917 Transcribed Date/Time: 08/15/17 0956 Normal [facility] REPORT OF CONSULTATIONon REPORT OF CONSULTATION [address] [place] [address] REPORT OF CONSULTATION : [id number] Signed Name: BLAS LUJAN MRUN: [id number] : 1960 Loc: 3S Age / Sex: 57/ F Adm Status: ADM IN Adm Date:08/14/17 Room/Bed: [facility] DATE: 08/15/2017 REFERRING: Hospitalist. INDICATION: Chest pain. HISTORY OF PRESENT ILLNESS: This is a pleasant 57-year-old female who presented to the emergency room with complaints of chest pain, shortness of breath. She said she has developed progressive dyspnea on exertion with minimal activity over the last week. She has been having this chest pain similar to what she had in August when she underwent a left heart catheterization which showed no coronary artery disease and mild mitral regurgitation. EF was 60%. Her left ventricular end-diastolic pressure was 17. She has had generalized weakness, cough, palpitations, dry heaves, dry mouth, positive orthopnea but no PND. In the emergency room, EKG was done which showed an accelerated junctional rhythm. She was transferred to [address] [place] [address], put on the monitor and she has had 2 episodes of 3 beats of nonsustained VTACH and now is in sinus rhythm. In the ER, WBC was 16. Neutrophils were 81.1. Sodium was 129, potassium 5.7. Lactic acid is 4.2. BNP was 2270. Troponin is staying mildly elevated at 0.05. ABG on room air: PCO2 was 26 and PaO2 was 76. UA was positive for Strep agalactiae. She was started on IV Levaquin. This morning, she is complaining of shortness of breath and nausea. On the monitor, she is in sinus rhythm. She is having pain that starts in her back and radiates around her left lower breast. PAST MEDICAL HISTORY: COPD, anxiety, depression, GERD, chronic back pain, osteoarthritis, history of substance abuse, hypertension, dyslipidemia, hiatal hernia, mitral regurgitation, psoriasis. PAST SURGICAL HISTORY: Back surgery. FAMILY HISTORY: Mother had hypertension, diabetes, rheumatoid arthritis. Brother had coronary artery disease. SOCIAL HISTORY: Lives alone. Does not smoke. No alcohol use. She does have a history of crack cocaine abuse. HOME MEDICATIONS: 1. Topamax. 2. Zanaflex. 3. Carafate. 4. Prilosec. 5. Gabapentin. 6. Advair Diskus. 7. Albuterol. 8. Xanax. ALLERGIES: BROMFED DM, CEFUROXIME, VANCOMYCIN, IBUPROFEN AND NAPROXEN. PHYSICAL EXAMINATION: VITAL SIGNS: Temperature 98.1, pulse 92, respirations 14, blood pressure 104/66, SAT 98% on 1 liter. GENERAL: This is an ill-appearing female sitting up in bed in no acute distress, complaining of some mild chest pain that starts in her back and radiates forward, and some shortness of breath and nausea. HEENT: No JVD. No carotid bruits. LUNGS: Clear to auscultation. CV: Regular rate and rhythm, 1/6 systolic ejection murmur heard at the apex. ABDOMEN: Soft, positive bowel sounds. EXTREMITIES: No clubbing, cyanosis, edema. NEUROLOGIC: Alert and oriented x3. Cranial nerves 2-12 grossly intact. Moved all extremities. LABORATORY DATA: WBC was 13.9, hemoglobin 9, hematocrit 29.2, MCV 61.9, MCH 19.1. ABG as stated above. Chem-7 normal except sodium of 131, bicarbonate 14, anion gap 20, BUN 37, creatinine 1.13. On admission, her creatinine was 1.41, BUN 35, potassium 5.7 and sodium 129. Lactic acid was 4.2, AST 384, ALT 301. CK-MB was 16.7, 13.4, 11.5. Troponin was 0.05, 0.06, 0.06. C-reactive protein 6.3. BNP 2270. Urine grew Strep agalactiae. Group A strep rapid screen was negative. Influenza screen is negative for A and B. Thoracic spine MRI: Showed moderate large right pleural effusion of uncertain etiology, multilevel advanced postoperative and degenerative changes of the cervical spine, stable chronic mild inferior endplate compression fracture and Schmorl's node, deformities at T11 with approximately 20-25% loss of vertebral body height. Stable postop and degenerative changes of the incidentally visualized cervical spine is visualized. Lumbar spine MRI: Stable/old mild inferior endplate compression fracture and Schmorl's node defect, T11 with mild disc bulging. However, no significant spinal canal stenosis, neural foraminal stenosis or nerve compression. Stable grade 2 spondylolisthesis L5-S1 with approximately 8.5 to 9 mm anterior subluxation. Severe disc disease narrowing and foraminal osteophyte formation producing bilateral spinal nerve effacement and mild compression, which is markedly worse on the right. Mild circumferential disc bulging L4/L5 which contacts and minimally effaces the exiting spinal nerves bilaterally which is subjectively worse on the left. ASSESSMENT: 1. Moderate to large right pleural effusion. 2. Noncardiac chest pain with left heart catheterization in August that showed no CAD. 3. Probable congestive heart failure. 4. Mild mitral regurgitation. 5. Nonsustained VTACH (ventricular tachycardia) on the monitor, 3 beats. 6. Junctional escape 7. UTI (urinary tract infection). 8. Anemia. 9. Hyponatremia. 10. Acute renal failure. 11. Elevated lactic acid level. 12. Elevated LFTs (liver function tests). 13. Positive troponin, probably secondary to demand ischemia. 14. Hyperkalemia, which has resolved. 15. Positive anion gap. 16. Degenerative joint disease. 17. History of hypertension. 18. History of substance abuse. 19. History of GERD (gastroesophageal reflux disease). 20. History of COPD (chronic obstructive pulmonary disease). 21. History of hiatal hernia. 22. History of osteoarthritis. 23. Acute kidney injury, which has resolved. 24. Noncardiac chest pain. 25. Congestive heart failure secondary to diastolic dysfunction, acute on chronic. PLAN: We will continue to diurese, follow electrolytes, consider a thoracentesis. We will check a D-dimer. If elevated, we will do CT of chest to rule out a PE. Thank you for allowing us to participate in this patient's care. Dictated By: Shea Cesar MD 08/16/17 0810 08/16/17 0810 Dictated Date/Time: 08/15/17 1006 Transcribed Date/Time: 08/15/17 1055 Normal [facility] TROPONIN Ion 08-15-2017 Troponin I.cardiac mass conc 0.06 ng/mL High 0.0-0.03 [facility] Comment on above: Result Comment: Refe rence Interval < or = 0.03 ng/mLClinical Correlation Needed 0.03 - 0.12 ng/mLAMI Cutoff, Presumptive = or > 0.12 ng/mL Performed By: #### C MP, PT, CBC, PTT, ESR, CPK 1, CKMB 1, TROP 1, ST OCC BLD ####[facility] - [id number] [place] [address] Troponin I.cardiac mass conc 0.06 ng/mL High 0.0-0.03 [facility] Comment on above: Result Comment: Refe rence Interval < or = 0.03 ng/mLClinical Correlation Needed 0.03 - 0.12 ng/mLAMI Cutoff, Presumptive = or > 0.12 ng/mL Performed By: #### C MP, PT, CBC, PTT, ESR, CPK 1, CKMB 1, TROP 1, ST OCC BLD ####[facility] - [id number] [place], [place] [address] URINE CULTUREon 08-15-2017 Urine culture, bacteria @08/14/17 1740: URINE CULT added. RFLXG = URINE CULT.@Source changed from IRICEL INS to CC by 4603.URINE CULTURE:Pending STREP AGALACTIAE (GRP B):Isolated URINE CULTURE: STRSEN Susceptibility testing of penicillins and other STRSEN2 betalactams approved by the FDA for treatment of Grps STRSEN3 A B strep, is not necessary for clinical purposes and STRSEN4 need not be done routinely, since as with vancomycin, STRSEN5 resistant strains have not been recognized. COLONY COUNT(URINE): 75,000 - 100,000 Normal [facility] Comment on above: Performed By: #### C MP, PT, CBC, PTT, ESR, CPK 1, CKMB 1, TROP 1, ST OCC BLD ####[facility] - [id number] [place], [place] [address] ANISOCYTOSISon 08-14-2017 Anisocytosis presence 2+ Abnormal [facility] Comment on above: Order Comment: @07/29 03/14 1458: SMUDGE CELLS added. RFLXG = MORPH.@08/14/17 1458: GIANT PLATELETS added. RFLXG = MORPH.@08/14/17 1458: POLYCHROM added. RFLXG = MORPH.@08/14/17 1458: HYPERCHROM added. RFLXG = MORPH.@08/14/17 1458: HYPOCHROM added. RFLXG = MORPH.@08/14/17 1458: POIK added. RFLXG = MORPH.@08/14/17 1458: BASO STIP added. RFLXG = MORPH.@08/14/17 1458: ANISO added. RFLXG = MORPH.@08/14/17 1458: MICRO added. RFLXG = MORPH.@08/14/17 1458: MACRO added. RFLXG = MORPH.@08/14/17 1458: SPHERE added. RFLXG = MORPH.@08/14/17 1458: ELLIPTO added. RFLXG = MORPH.@08/14/17 1458: SIDEROCYTE added. RFLXG = MORPH.@08/14/17 1458: ADARSH BODIES added. RFLXG = MORPH.@08/14/17 1458: PELGER-HUET added. RFLXG = MORPH.@08/14/17 1458: ANA LILIA BODIES added. RFLXG = MORPH.@08/14/17 1458: SICKLE added. RFLXG = MORPH.@08/14/17 1458: TARGET added. RFLXG = MORPH.@08/14/17 1458: TEAR added. RFLXG = MORPH.@08/14/17 145: OVAL added. RFLXG = MORPH.@08/14/17 145: STOMATO added. RFLXG = MORPH.@08/14/17 1458: HELMET CELLS added. RFLXG = MORPH.@08/14/17 145: HJ BODIES added. RFLXG = MORPH.@08/14/17 1458: TOXIC GRAN added. RFLXG = MORPH.@08/14/17 1458: TOXIC VAC added. RFLXG = MORPH.@08/14/17 145: DOHLE BODIES added. RFLXG = MORPH.@08/14/17 145: NIMISHA CELLS added. RFLXG = MORPH.@08/14/17 1458: CRENATED RBC added. RFLXG = MORPH.@08/14/17 1458: ACANTHO added. RFLXG = MORPH.@08/14/17 1458: ROLY RODS added. RFLXG = MORPH.@08/14/17 1458: ROULEAUX added. RFLXG = MORPH.@08/14/17 1458: SCHISTO added. RFLXG = MORPH.@08/14/17 145: PARASITES added. RFLXG = MORPH. Performed By: #### C MP, PT, CBC, PTT, ESR, CPK 1, CKMB 1, TROP 1, ST OCC BLD ####[facility] - [id number] [place], [place] [address] ARTERIAL BLOOD GASon 017 PATIENT TEMP 98.4 Degree Normal [facility] Comment on above: Order Comment: [place] rature 98 F Result Comment: The Blood Gas values have been corrected for patienttemperature. Performed By: #### C MP, PT, CBC, PTT, ESR, CPK 1, CKMB 1, TROP 1, ST OCC BLD ####[facility] - [id number] [place] [address] ABG BASE EXCESS -9 mmol/L Low -2 - 2 [facility] Comment on above: Order Comment: [place] rature 98 F Performed By: #### C MP, PT, CBC, PTT, ESR, CPK 1, CKMB 1, TROP 1, ST OCC BLD ####[facility] - [id number] [place] [address] ABG HCO3 18 mmol/L Low 24-32 [facility] Comment on above: Order Comment: [place] rature 98 F Performed By: #### C MP, PT, CBC, PTT, ESR, CPK 1, CKMB 1, TROP 1, ST OCC BLD ####[facility] - [id number] [place] [address] ABG OXYGEN SATURATION 96.5 % Normal 91.9-98.5 [facility] Comment on above: Order Comment: [place] rature 98 F Performed By: #### C MP, PT, CBC, PTT, ESR, CPK 1, CKMB 1, TROP 1, ST OCC BLD ####[facility] - [id number] [place] [address] ABG PH 7.36 Units Normal 7.35-7.45 [facility] Comment on above: Order Comment: [place] rature 98 F Performed By: #### C MP, PT, CBC, PTT, ESR, CPK 1, CKMB 1, TROP 1, ST OCC BLD ####[facility] - [id number] [place] [address] ABG PO2 76 mmHg Low 83-108 [facility] Comment on above: Order Comment: [place] rature 98 F Performed By: #### C MP, PT, CBC, PTT, ESR, CPK 1, CKMB 1, TROP 1, ST OCC BLD ####[facility] - [id number] [place] [address] CO2 26 mmHg Low 35-45 [facility] Comment on above: Order Comment: [place] rature 98 F Performed By: #### C MP, PT, CBC, PTT, ESR, CPK 1, CKMB 1, TROP 1, ST OCC BLD ####[facility] - [id number] [place] [address] ABG PO2 17 mmHg Critically low 83-108 [facility] Comment on above: Order Comment: [place] rature 98 F Result Comment: SPEC IMEN WAS NOT ARTERIAL. PLEASE REFER TO [id number].Critical Results,Called To:Shawna KEYS Christopher at 1433 on 08/14/17.Results then read-back for verification. Performed By: #### C MP, PT, CBC, PTT, ESR, CPK 1, CKMB 1, TROP 1, ST OCC BLD ####[facility] - [place] [address] ABG BASE EXCESS -10 mmol/L Low -2 - 2 [facility] Comment on above: Order Comment: [place] rature 98 F Result Comment: SPEC IMEN WAS NOT ARTERIAL. PLEASE REFER TO [id number]. Performed By: #### C MP, PT, CBC, PTT, ESR, CPK 1, CKMB 1, TROP 1, ST OCC BLD ####[facility] - [id number] [place] [address] ABG HCO3 15 mmol/L Low 24-32 [facility] Comment on above: Order Comment: [place] rature 98 F Result Comment: SPEC IMEN WAS NOT ARTERIAL. PLEASE REFER TO [id number]. Performed By: #### C MP, PT, CBC, PTT, ESR, CPK 1, CKMB 1, TROP 1, ST OCC BLD ####[facility] - [id number] [place] [address] ABG OXYGEN SATURATION 23.1 % Low 91.9-98.5 [facility] Comment on above: Order Comment: [place] rature 98 F Result Comment: SPEC IMEN WAS NOT ARTERIAL. PLEASE REFER TO [id number]. Performed By: #### C MP, PT, CBC, PTT, ESR, CPK 1, CKMB 1, TROP 1, ST OCC BLD ####[facility] - [id number] [place] [address] ABG PH 7.28 Units Low 7.35-7.45 [facility] Comment on above: Order Comment: [place] rature 98 F Result Comment: SPEC IMEN WAS NOT ARTERIAL. PLEASE REFER TO [id number]. Performed By: #### C MP, PT, CBC, PTT, ESR, CPK 1, CKMB 1, TROP 1, ST OCC BLD ####[facility] - [id number] [place] [address] CO2 34 mmHg Low 35-45 [facility] Comment on above: Order Comment: [place] r[place] 98 F Result Comment: SPEC IMEN WAS NOT ARTERIAL. PLEASE REFER TO [id number]. Performed By: #### C MP, PT, CBC, PTT, ESR, CPK 1, CKMB 1, TROP 1, ST OCC BLD ####[facility] - [id number] [place] [address] O2 DEVICE ROOM AIR Normal [facility] Comment on above: Order Comment: [place] r[place] 98 F Performed By: #### C MP, PT, CBC, PTT, ESR, CPK 1, CKMB 1, TROP 1, ST OCC BLD ####[facility] - [id number] [place] [address] Result Comment: SPEC IMEN WAS NOT ARTERIAL. PLEASE REFER TO [id number]. PATIENT TEMP 98.4 Degree Normal [facility] Comment on above: Order Comment: [place] rature 98 F Result Comment: SPEC IMEN WAS NOT ARTERIAL. PLEASE REFER TO [id number].The Blood Gas values have been corrected for patienttemperature. Performed By: #### C MP, PT, CBC, PTT, ESR, CPK 1, CKMB 1, TROP 1, ST OCC BLD ####[facility] - [id number] [place] [address] B-TYPE NATRIURETIC PEPTIDEon 08-14-2017 BNP 2270 pg/mL High 0-99 [facility] Comment on above: Result Comment: BNP Reference [id number] pg/mL: Indeterminate range. > 400 pg/mL: Very high probability of myocardial strain/failure. Performed By: #### C MP, PT, CBC, PTT, ESR, CPK 1, CKMB 1, TROP 1, ST OCC BLD ####[facility] - [id number] [place], [place] [address] CBC WITH AUTO DIFFon 017 Basophils Auto #/vol (Bld) 0.1 10 3/uL Normal 0.0-0.2 [facility] Comment on above: Order Comment: @07/29 03/14 1458: SMUDGE CELLS added. RFLXG = MORPH.@08/14/17 1458: GIANT PLATELETS added. RFLXG = MORPH.@08/14/17 145: POLYCHROM added. RFLXG = MORPH.@08/14/17 1458: HYPERCHROM added. RFLXG = MORPH.@08/14/17 1458: HYPOCHROM added. RFLXG = MORPH.@08/14/17 1458: POIK added. RFLXG = MORPH.@08/14/17 1458: BASO STIP added. RFLXG = MORPH.@08/14/17 1458: ANISO added. RFLXG = MORPH.@08/14/17 1458: MICRO added. RFLXG = MORPH.@08/14/17 1458: MACRO added. RFLXG = MORPH.@08/14/17 1458: SPHERE added. RFLXG = MORPH.@08/14/17 1458: ELLIPTO added. RFLXG = MORPH.@08/14/17 1458: SIDEROCYTE added. RFLXG = MORPH.@08/14/17 1458: ADARSH BODIES added. RFLXG = MORPH.@08/14/17 1458: PELGER-HUET added. RFLXG = MORPH.@08/14/17 1458: ANA LILIA BODIES added. RFLXG = MORPH.@08/14/17 1458: SICKLE added. RFLXG = MORPH.@08/14/17 1458: TARGET added. RFLXG = MORPH.@08/14/17 1458: TEAR added. RFLXG = MORPH.@08/14/17 1458: OVAL added. RFLXG = MORPH.@08/14/17 1458: STOMATO added. RFLXG = MORPH.@08/14/17 1458: HELMET CELLS added. RFLXG = MORPH.@08/14/17 145: HJ BODIES added. RFLXG = MORPH.@08/14/17 145: TOXIC GRAN added. RFLXG = MORPH.@08/14/17 1458: TOXIC VAC added. RFLXG = MORPH.@08/14/17 1458: DOHLE BODIES added. RFLXG = MORPH.@08/14/17 1458: NIMISHA CELLS added. RFLXG = MORPH.@08/14/17 145: CRENATED RBC added. RFLXG = MORPH.@08/14/17 145: ACANTHO added. RFLXG = MORPH.@08/14/17 145: ROLY RODS added. RFLXG = MORPH.@08/14/171457: ROULEAUX added. RFLXG = MORPH.@08/14/17 145: SCHISTO added. RFLXG = MORPH.@08/14/17 145: PARASITES added. RFLXG = MORPH. Performed By: #### C MP, PT, CBC, PTT, ESR, CPK 1, CKMB 1, TROP 1, ST OCC BLD ####[facility] - [id number] [place], [place] [address] Basophils/100 WBC Auto (Bld) 0.8 % Normal 0.0-1.0 [facility] Comment on above: Order Comment: @07/29: SMUDGE CELLS added. RFLXG = MORPH.@08/14/17 1458: GIANT PLATELETS added. RFLXG = MORPH.@08/14/17 1458: POLYCHROM added. RFLXG = MORPH.@08/14/171457: HYPERCHROM added. RFLXG = MORPH.@08/14/171457: HYPOCHROM added. RFLXG = MORPH.@08/14/171457: POIK added. RFLXG = MORPH.@08/14/17 145: BASO STIP added. RFLXG = MORPH.@08/14/17 1458: ANISO added. RFLXG = MORPH.@08/14/17 1458: MICRO added. RFLXG = MORPH.@08/14/17 145: MACRO added. RFLXG = MORPH.@08/14/17 145: SPHERE added. RFLXG = MORPH.@08/14/17 145: ELLIPTO added. RFLXG = MORPH.@08/14/17 1458: SIDEROCYTE added. RFLXG = MORPH.@08/14/171457: ADARSH BODIES added. RFLXG = MORPH.@08/14/17 145: PELGER-HUET added. RFLXG = MORPH.@08/14/17 145: ANA LILIA BODIES added. RFLXG = MORPH.@08/14/17 145: SICKLE added. RFLXG = MORPH.@08/14/171457: TARGET added. RFLXG = MORPH.@08/14/171457: TEAR added. RFLXG = MORPH.@08/14/171457: OVAL added. RFLXG = MORPH.@08/14/171457: STOMATO added. RFLXG = MORPH.@08/14/17 145: HELMET CELLS added. RFLXG = MORPH.@08/14/17 145: HJ BODIES added. RFLXG = MORPH.@08/14/171457: TOXIC GRAN added. RFLXG = MORPH.@08/14/17 145: TOXIC VAC added. RFLXG = MORPH.@08/14/17 145: DOHLE BODIES added. RFLXG = MORPH.@08/14/17 145: NIMISHA CELLS added. RFLXG = MORPH.@08/14/17 145: CRENATED RBC added. RFLXG = MORPH.@08/14/17 145: ACANTHO added. RFLXG = MORPH.@08/14/171457: ROLY RODS added. RFLXG = MORPH.@08/14/171457: ROULEAUX added. RFLXG = MORPH.@08/14/171457: SCHISTO added. RFLXG = MORPH.@08/14/17 145: PARASITES added. RFLXG = MORPH. Performed By: #### C MP, PT, CBC, PTT, ESR, CPK 1, CKMB 1, TROP 1, ST OCC BLD ####[facility] - [id number] [place], [place] [address] Eosinophils 0.0 10 3/uL Normal 0.0-0.7 [facility] Comment on above: Order Comment: @07/29 03/14 1458: SMUDGE CELLS added. RFLXG = MORPH.@08/14/17 1458: GIANT PLATELETS added. RFLXG = MORPH.@08/14/17 1458: POLYCHROM added. RFLXG = MORPH.@08/14/17 1458: HYPERCHROM added. RFLXG = MORPH.@08/14/17 1458: HYPOCHROM added. RFLXG = MORPH.@08/14/17 145: POIK added. RFLXG = MORPH.@08/14/17 145: BASO STIP added. RFLXG = MORPH.@08/14/17 1458: ANISO added. RFLXG = MORPH.@08/14/17 1458: MICRO added. RFLXG = MORPH.@08/14/17 1458: MACRO added. RFLXG = MORPH.@08/14/17 1458: SPHERE added. RFLXG = MORPH.@08/14/17 145: ELLIPTO added. RFLXG = MORPH.@08/14/17 145: SIDEROCYTE added. RFLXG = MORPH.@08/14/17 1458: ADARSH BODIES added. RFLXG = MORPH.@08/14/17 1458: PELGER-HUET added. RFLXG = MORPH.@08/14/17 1458: ANA LILIA BODIES added. RFLXG = MORPH.@08/14/17 1458: SICKLE added. RFLXG = MORPH.@08/14/17 1458: TARGET added. RFLXG = MORPH.@08/14/17 1458: TEAR added. RFLXG = MORPH.@08/14/17 145: OVAL added. RFLXG = MORPH.@08/14/17 1458: STOMATO added. RFLXG = MORPH.@08/14/17 1458: HELMET CELLS added. RFLXG = MORPH.@08/14/17 145: HJ BODIES added. RFLXG = MORPH.@08/14/17 1458: TOXIC GRAN added. RFLXG = MORPH.@08/14/17 1458: TOXIC VAC added. RFLXG = MORPH.@08/14/17 145: DOHLE BODIES added. RFLXG = MORPH.@08/14/171457: NIMISHA CELLS added. RFLXG = MORPH.@08/14/171457: CRENATED RBC added. RFLXG = MORPH.@08/14/17 145: ACANTHO added. RFLXG = MORPH.@08/14/17 145: ROLY RODS added. RFLXG = MORPH.@08/14/171457: ROULEAUX added. RFLXG = MORPH.@08/14/171457: SCHISTO added. RFLXG = MORPH.@08/14/171457: PARASITES added. RFLXG = MORPH. Performed By: #### C MP, PT, CBC, PTT, ESR, CPK 1, CKMB 1, TROP 1, ST OCC BLD ####Main Lab - [id number] [place], [place] [address] Eosinophils/100 leukocytes 0.1 % Normal 0.0-5.0 [facility] Comment on above: Order Comment: @07/29: SMUDGE CELLS added. RFLXG = MORPH.@08/14/171457: GIANT PLATELETS added. RFLXG = MORPH.@08/14/17 1458: POLYCHROM added. RFLXG = MORPH.@08/14/171457: HYPERCHROM added. RFLXG = MORPH.@08/14/17 1458: HYPOCHROM added. RFLXG = MORPH.@08/14/17 1458: POIK added. RFLXG = MORPH.@08/14/171457: BASO STIP added. RFLXG = MORPH.@08/14/171457: ANISO added. RFLXG = MORPH.@08/14/171457: MICRO added. RFLXG = MORPH.@08/14/17 1458: MACRO added. RFLXG = MORPH.@08/14/17 145: SPHERE added. RFLXG = MORPH.@08/14/17 1458: ELLIPTO added. RFLXG = MORPH.@08/14/17 1458: SIDEROCYTE added. RFLXG = MORPH.@08/14/17 1458: ADARSH BODIES added. RFLXG = MORPH.@08/14/17 1458: PELGER-HUET added. RFLXG = MORPH.@08/14/17 1458: ANA LILIA BODIES added. RFLXG = MORPH.@08/14/17 1458: SICKLE added. RFLXG = MORPH.@08/14/17 1458: TARGET added. RFLXG = MORPH.@08/14/17 1458: TEAR added. RFLXG = MORPH.@08/14/17 1458: OVAL added. RFLXG = MORPH.@08/14/17 1458: STOMATO added. RFLXG = MORPH.@08/14/17 1458: HELMET CELLS added. RFLXG = MORPH.@08/14/17 1458: HJ BODIES added. RFLXG = MORPH.@08/14/17 1458: TOXIC GRAN added. RFLXG = MORPH.@08/14/17 1458: TOXIC VAC added. RFLXG = MORPH.@08/14/17 1458: DOHLE BODIES added. RFLXG = MORPH.@08/14/17 1458: NIMISHA CELLS added. RFLXG = MORPH.@08/14/17 1458: CRENATED RBC added. RFLXG = MORPH.@08/14/17 1458: ACANTHO added. RFLXG = MORPH.@08/14/17 1458: ROLY RODS added. RFLXG = MORPH.@08/14/17 1458: ROULEAUX added. RFLXG = MORPH.@08/14/17 1458: SCHISTO added. RFLXG = MORPH.@08/14/17 1458: PARASITES added. RFLXG = MORPH. Performed By: #### C MP, PT, CBC, PTT, ESR, CPK 1, CKMB 1, TROP 1, ST OCC BLD ####Main Lab - [id number] [place], [place] [address] Erythrocyte distribution width Auto Ratio (RBC) 25.0 % High 11.5-14.0 [facility] Comment on above: Order Comment: @07/298: SMUDGE CELLS added. RFLXG = MORPH.@08/14/17 1458: GIANT PLATELETS added. RFLXG = MORPH.@08/14/17 1458: POLYCHROM added. RFLXG = MORPH.@08/14/17 1458: HYPERCHROM added. RFLXG = MORPH.@08/14/17 1458: HYPOCHROM added. RFLXG = MORPH.@08/14/17 1458: POIK added. RFLXG = MORPH.@08/14/17 1458: BASO STIP added. RFLXG = MORPH.@08/14/17 1458: ANISO added. RFLXG = MORPH.@08/14/17 1458: MICRO added. RFLXG = MORPH.@08/14/17 145: MACRO added. RFLXG = MORPH.@08/14/17 1458: SPHERE added. RFLXG = MORPH.@08/14/17 1458: ELLIPTO added. RFLXG = MORPH.@08/14/17 1458: SIDEROCYTE added. RFLXG = MORPH.@08/14/17 1458: ADARSH BODIES added. RFLXG = MORPH.@08/14/17 1458: PELGER-HUET added. RFLXG = MORPH.@08/14/17 145: ANA LILIA BODIES added. RFLXG = MORPH.@08/14/17 1458: SICKLE added. RFLXG = MORPH.@08/14/17 1458: TARGET added. RFLXG = MORPH.@08/14/17 1458: TEAR added. RFLXG = MORPH.@08/14/17 1458: OVAL added. RFLXG = MORPH.@08/14/17 1458: STOMATO added. RFLXG = MORPH.@08/14/17 1458: HELMET CELLS added. RFLXG = MORPH.@08/14/17 145: HJ BODIES added. RFLXG = MORPH.@08/14/17 1458: TOXIC GRAN added. RFLXG = MORPH.@08/14/17 1458: TOXIC VAC added. RFLXG = MORPH.@08/14/17 1458: DOHLE BODIES added. RFLXG = MORPH.@08/14/17 1458: NIMISHA CELLS added. RFLXG = MORPH.@08/14/17 1458: CRENATED RBC added. RFLXG = MORPH.@08/14/17 145: ACANTHO added. RFLXG = MORPH.@08/14/17 145: ROLY RODS added. RFLXG = MORPH.@08/14/17 1458: ROULEAUX added. RFLXG = MORPH.@08/14/17 1458: SCHISTO added. RFLXG = MORPH.@08/14/17 1458: PARASITES added. RFLXG = MORPH. Performed By: #### C MP, PT, CBC, PTT, ESR, CPK 1, CKMB 1, TROP 1, ST OCC BLD ####Main Lab - [id number] [place], [place] [address] Erythrocytes (RBC) 5.10 x10 6/uL Normal 3.89-5.30 [facility] Comment on above: Order Comment: @07/29 03/14 145: SMUDGE CELLS added. RFLXG = MORPH.@08/14/17 1458: GIANT PLATELETS added. RFLXG = MORPH.@08/14/17 1458: POLYCHROM added. RFLXG = MORPH.@08/14/17 145: HYPERCHROM added. RFLXG = MORPH.@08/14/17 1458: HYPOCHROM added. RFLXG = MORPH.@08/14/17 1458: POIK added. RFLXG = MORPH.@08/14/17 1458: BASO STIP added. RFLXG = MORPH.@08/14/17 1458: ANISO added. RFLXG = MORPH.@08/14/17 1458: MICRO added. RFLXG = MORPH.@08/14/17 145: MACRO added. RFLXG = MORPH.@08/14/171457: SPHERE added. RFLXG = MORPH.@08/14/17 145: ELLIPTO added. RFLXG = MORPH.@08/14/17 1458: SIDEROCYTE added. RFLXG = MORPH.@08/14/17 1458: ADARSH BODIES added. RFLXG = MORPH.@08/14/17 1458: PELGER-HUET added. RFLXG = MORPH.@08/14/17 1458: ANA LILIA BODIES added. RFLXG = MORPH.@08/14/17 1458: SICKLE added. RFLXG = MORPH.@08/14/17 1458: TARGET added. RFLXG = MORPH.@08/14/17 1458: TEAR added. RFLXG = MORPH.@08/14/17 1458: OVAL added. RFLXG = MORPH.@08/14/17 1458: STOMATO added. RFLXG = MORPH.@08/14/17 1458: HELMET CELLS added. RFLXG = MORPH.@08/14/17 145: HJ BODIES added. RFLXG = MORPH.@08/14/17 145: TOXIC GRAN added. RFLXG = MORPH.@08/14/17 1458: TOXIC VAC added. RFLXG = MORPH.@08/14/17 1458: DOHLE BODIES added. RFLXG = MORPH.@08/14/17 145: NIMISHA CELLS added. RFLXG = MORPH.@08/14/17 145: CRENATED RBC added. RFLXG = MORPH.@08/14/17 145: ACANTHO added. RFLXG = MORPH.@08/14/17 145: ROLY RODS added. RFLXG = MORPH.@08/14/17 145: ROULEAUX added. RFLXG = MORPH.@08/14/17 1458: SCHISTO added. RFLXG = MORPH.@08/14/17 145: PARASITES added. RFLXG = MORPH. Performed By: #### C MP, PT, CBC, PTT, ESR, CPK 1, CKMB 1, TROP 1, ST OCC BLD ####Main Lab - [id number] [place], [place] [address] Hematocrit (HCT) 31.9 % Low 34.8-45.0 [facility] Comment on above: Order Comment: @07/29 03/14 1458: SMUDGE CELLS added. RFLXG = MORPH.@08/14/17 1458: GIANT PLATELETS added. RFLXG = MORPH.@08/14/17 1458: POLYCHROM added. RFLXG = MORPH.@08/14/17 1458: HYPERCHROM added. RFLXG = MORPH.@08/14/17 1458: HYPOCHROM added. RFLXG = MORPH.@08/14/17 145: POIK added. RFLXG = MORPH.@08/14/17 1458: BASO STIP added. RFLXG = MORPH.@08/14/17 1458: ANISO added. RFLXG = MORPH.@08/14/17 1458: MICRO added. RFLXG = MORPH.@08/14/17 1458: MACRO added. RFLXG = MORPH.@08/14/17 145: SPHERE added. RFLXG = MORPH.@08/14/17 145: ELLIPTO added. RFLXG = MORPH.@08/14/17 145: SIDEROCYTE added. RFLXG = MORPH.@08/14/17 145: ADARSH BODIES added. RFLXG = MORPH.@08/14/17 145: PELGER-HUET added. RFLXG = MORPH.@08/14/17 1458: ANA LILIA BODIES added. RFLXG = MORPH.@08/14/17 1458: SICKLE added. RFLXG = MORPH.@08/14/17 1458: TARGET added. RFLXG = MORPH.@08/14/17 1458: TEAR added. RFLXG = MORPH.@08/14/17 1458: OVAL added. RFLXG = MORPH.@08/14/17 1458: STOMATO added. RFLXG = MORPH.@08/14/17 1458: HELMET CELLS added. RFLXG = MORPH.@08/14/17 1458: HJ BODIES added. RFLXG = MORPH.@08/14/17 1458: TOXIC GRAN added. RFLXG = MORPH.@08/14/17 1458: TOXIC VAC added. RFLXG = MORPH.@08/14/17 145: DOHLE BODIES added. RFLXG = MORPH.@08/14/17 145: NIMISHA CELLS added. RFLXG = MORPH.@08/14/17 145: CRENATED RBC added. RFLXG = MORPH.@08/14/17 1458: ACANTHO added. RFLXG = MORPH.@08/14/17 1458: ROLY RODS added. RFLXG = MORPH.@08/14/17 1458: ROULEAUX added. RFLXG = MORPH.@08/14/17 1458: SCHISTO added. RFLXG = MORPH.@08/14/17 1458: PARASITES added. RFLXG = MORPH. Performed By: #### C MP, PT, CBC, PTT, ESR, CPK 1, CKMB 1, TROP 1, ST OCC BLD ####Main Lab - [id number] [place], [place] [address] Hemoglobin mass conc (Bld) 9.5 g/dL Low 11.6-14.9 [facility] Comment on above: Order Comment: @07/29: SMUDGE CELLS added. RFLXG = MORPH.@08/14/17 1458: GIANT PLATELETS added. RFLXG = MORPH.@08/14/17 1458: POLYCHROM added. RFLXG = MORPH.@08/14/17 1458: HYPERCHROM added. RFLXG = MORPH.@08/14/17 1458: HYPOCHROM added. RFLXG = MORPH.@08/14/17 1458: POIK added. RFLXG = MORPH.@08/14/17 1458: BASO STIP added. RFLXG = MORPH.@08/14/17 1458: ANISO added. RFLXG = MORPH.@08/14/17 1458: MICRO added. RFLXG = MORPH.@08/14/17 1458: MACRO added. RFLXG = MORPH.@08/14/17 1458: SPHERE added. RFLXG = MORPH.@08/14/17 1458: ELLIPTO added. RFLXG = MORPH.@08/14/17 1458: SIDEROCYTE added. RFLXG = MORPH.@08/14/17 1458: ADARSH BODIES added. RFLXG = MORPH.@08/14/17 1458: PELGER-HUET added. RFLXG = MORPH.@08/14/17 1458: ANA LILIA BODIES added. RFLXG = MORPH.@08/14/17 1458: SICKLE added. RFLXG = MORPH.@08/14/17 1458: TARGET added. RFLXG = MORPH.@08/14/17 1458: TEAR added. RFLXG = MORPH.@08/14/17 1458: OVAL added. RFLXG = MORPH.@08/14/17 1458: STOMATO added. RFLXG = MORPH.@08/14/17 1458: HELMET CELLS added. RFLXG = MORPH.@08/14/17 1458: HJ BODIES added. RFLXG = MORPH.@08/14/17 1458: TOXIC GRAN added. RFLXG = MORPH.@08/14/17 1458: TOXIC VAC added. RFLXG = MORPH.@08/14/17 1458: DOHLE BODIES added. RFLXG = MORPH.@08/14/17 145: NIMISHA CELLS added. RFLXG = MORPH.@08/14/17 145: CRENATED RBC added. RFLXG = MORPH.@08/14/17 145: ACANTHO added. RFLXG = MORPH.@08/14/17 145: ROLY RODS added. RFLXG = MORPH.@08/14/17 1458: ROULEAUX added. RFLXG = MORPH.@08/14/17 145: SCHISTO added. RFLXG = MORPH.@08/14/17 145: PARASITES added. RFLXG = MORPH. Performed By: #### C MP, PT, CBC, PTT, ESR, CPK 1, CKMB 1, TROP 1, ST OCC BLD ####Main Lab - [id number] [place], [place] [address] Lymphocytes 1.3 10 3/uL Normal 1.0-3.5 [facility] Comment on above: Order Comment: @07/29 03/14 1458: SMUDGE CELLS added. RFLXG = MORPH.@08/14/17 145: GIANT PLATELETS added. RFLXG = MORPH.@08/14/17 1458: POLYCHROM added. RFLXG = MORPH.@08/14/17 1458: HYPERCHROM added. RFLXG = MORPH.@08/14/17 1458: HYPOCHROM added. RFLXG = MORPH.@08/14/17 1458: POIK added. RFLXG = MORPH.@08/14/17 1458: BASO STIP added. RFLXG = MORPH.@08/14/17 1458: ANISO added. RFLXG = MORPH.@08/14/17 145: MICRO added. RFLXG = MORPH.@08/14/17 145: MACRO added. RFLXG = MORPH.@08/14/17 1458: SPHERE added. RFLXG = MORPH.@08/14/17 145: ELLIPTO added. RFLXG = MORPH.@08/14/17 1458: SIDEROCYTE added. RFLXG = MORPH.@08/14/17 145: ADARSH BODIES added. RFLXG = MORPH.@08/14/17 145: PELGER-HUET added. RFLXG = MORPH.@08/14/17 145: ANA LILIA BODIES added. RFLXG = MORPH.@08/14/17 145: SICKLE added. RFLXG = MORPH.@08/14/17 145: TARGET added. RFLXG = MORPH.@08/14/17 1458: TEAR added. RFLXG = MORPH.@08/14/17 1458: OVAL added. RFLXG = MORPH.@08/14/17 145: STOMATO added. RFLXG = MORPH.@08/14/17 145: HELMET CELLS added. RFLXG = MORPH.@08/14/17 1458: HJ BODIES added. RFLXG = MORPH.@08/14/17 1458: TOXIC GRAN added. RFLXG = MORPH.@08/14/17 1458: TOXIC VAC added. RFLXG = MORPH.@08/14/17 1458: DOHLE BODIES added. RFLXG = MORPH.@08/14/17 1458: NIMISHA CELLS added. RFLXG = MORPH.@08/14/17 145: CRENATED RBC added. RFLXG = MORPH.@08/14/17 145: ACANTHO added. RFLXG = MORPH.@08/14/17 145: ROLY RODS added. RFLXG = MORPH.@08/14/17 145: ROULEAUX added. RFLXG = MORPH.@08/14/17 1458: SCHISTO added. RFLXG = MORPH.@08/14/17 1458: PARASITES added. RFLXG = MORPH. Performed By: #### C MP, PT, CBC, PTT, ESR, CPK 1, CKMB 1, TROP 1, ST OCC BLD ####Main Lab - [id number] [place], [place] [address] Lymphocytes/100 leukocytes 8.1 % Low 24.0-44.0 [facility] Comment on above: Order Comment: @07/29 03/14 1458: SMUDGE CELLS added. RFLXG = MORPH.@08/14/17 1458: GIANT PLATELETS added. RFLXG = MORPH.@08/14/17 1458: POLYCHROM added. RFLXG = MORPH.@08/14/17 1458: HYPERCHROM added. RFLXG = MORPH.@08/14/17 1458: HYPOCHROM added. RFLXG = MORPH.@08/14/17 1458: POIK added. RFLXG = MORPH.@08/14/17 1458: BASO STIP added. RFLXG = MORPH.@08/14/17 1458: ANISO added. RFLXG = MORPH.@08/14/17 1458: MICRO added. RFLXG = MORPH.@08/14/17 1458: MACRO added. RFLXG = MORPH.@08/14/17 1458: SPHERE added. RFLXG = MORPH.@08/14/17 1458: ELLIPTO added. RFLXG = MORPH.@08/14/17 1458: SIDEROCYTE added. RFLXG = MORPH.@08/14/17 1458: ADARSH BODIES added. RFLXG = MORPH.@08/14/17 1458: PELGER-HUET added. RFLXG = MORPH.@08/14/17 1458: ANA LILIA BODIES added. RFLXG = MORPH.@08/14/17 1458: SICKLE added. RFLXG = MORPH.@08/14/17 1458: TARGET added. RFLXG = MORPH.@08/14/17 1458: TEAR added. RFLXG = MORPH.@08/14/17 1458: OVAL added. RFLXG = MORPH.@08/14/17 1458: STOMATO added. RFLXG = MORPH.@08/14/17 1458: HELMET CELLS added. RFLXG = MORPH.@08/14/17 1458: HJ BODIES added. RFLXG = MORPH.@08/14/17 145: TOXIC GRAN added. RFLXG = MORPH.@08/14/17 1458: TOXIC VAC added. RFLXG = MORPH.@08/14/17 1458: DOHLE BODIES added. RFLXG = MORPH.@08/14/17 145: NIMISHA CELLS added. RFLXG = MORPH.@08/14/17 1458: CRENATED RBC added. RFLXG = MORPH.@08/14/17 145: ACANTHO added. RFLXG = MORPH.@08/14/17 145: ROLY RODS added. RFLXG = MORPH.@08/14/171457: ROULEAUX added. RFLXG = MORPH.@08/14/17 145: SCHISTO added. RFLXG = MORPH.@08/14/17 145: PARASITES added. RFLXG = MORPH. Performed By: #### C MP, PT, CBC, PTT, ESR, CPK 1, CKMB 1, TROP 1, ST OCC BLD ####Main Lab - [id number] [place] [address] MCH 18.7 pg Low 27.0-31.0 [facility] Comment on above: Order Comment: @07/29 03/14 1458: SMUDGE CELLS added. RFLXG = MORPH.@08/14/17 145: GIANT PLATELETS added. RFLXG = MORPH.@08/14/17 1458: POLYCHROM added. RFLXG = MORPH.@08/14/17 1458: HYPERCHROM added. RFLXG = MORPH.@08/14/17 145: HYPOCHROM added. RFLXG = MORPH.@08/14/17 145: POIK added. RFLXG = MORPH.@08/14/17 145: BASO STIP added. RFLXG = MORPH.@08/14/17 1458: ANISO added. RFLXG = MORPH.@08/14/17 1458: MICRO added. RFLXG = MORPH.@08/14/17 1458: MACRO added. RFLXG = MORPH.@08/14/17 145: SPHERE added. RFLXG = MORPH.@08/14/17 145: ELLIPTO added. RFLXG = MORPH.@08/14/171457: SIDEROCYTE added. RFLXG = MORPH.@08/14/171457: ADARSH BODIES added. RFLXG = MORPH.@08/14/171457: PELGER-HUET added. RFLXG = MORPH.@08/14/17 145: ANA LILIA BODIES added. RFLXG = MORPH.@08/14/17 145: SICKLE added. RFLXG = MORPH.@08/14/171457: TARGET added. RFLXG = MORPH.@08/14/171457: TEAR added. RFLXG = MORPH.@08/14/171457: OVAL added. RFLXG = MORPH.@08/14/171457: STOMATO added. RFLXG = MORPH.@08/14/171457: HELMET CELLS added. RFLXG = MORPH.@08/14/17 145: HJ BODIES added. RFLXG = MORPH.@08/14/17 145: TOXIC GRAN added. RFLXG = MORPH.@08/14/17 145: TOXIC VAC added. RFLXG = MORPH.@08/14/171457: DOHLE BODIES added. RFLXG = MORPH.@08/14/171457: NIMISHA CELLS added. RFLXG = MORPH.@08/14/171457: CRENATED RBC added. RFLXG = MORPH.@08/14/17 145: ACANTHO added. RFLXG = MORPH.@08/14/17 145: ROLY RODS added. RFLXG = MORPH.@08/14/171457: ROULEAUX added. RFLXG = MORPH.@08/14/171457: SCHISTO added. RFLXG = MORPH.@08/14/171457: PARASITES added. RFLXG = MORPH. Performed By: #### C MP, PT, CBC, PTT, ESR, CPK 1, CKMB 1, TROP 1, ST OCC BLD ####Main Lab - [id number] [place], [place] [address] MCHC mass conc (RBC) 29.9 g/dL Low 32.0-36.0 Andreia lennon [facility] Comment on above: Order Comment: @07/29 03/14 1458: SMUDGE CELLS added. RFLXG = MORPH.@08/14/17 1458: GIANT PLATELETS added. RFLXG = MORPH.@08/14/17 1458: POLYCHROM added. RFLXG = MORPH.@08/14/17 1458: HYPERCHROM added. RFLXG = MORPH.@08/14/17 1458: HYPOCHROM added. RFLXG = MORPH.@08/14/17 1458: POIK added. RFLXG = MORPH.@08/14/17 1458: BASO STIP added. RFLXG = MORPH.@08/14/17 1458: ANISO added. RFLXG = MORPH.@08/14/17 1458: MICRO added. RFLXG = MORPH.@08/14/17 1458: MACRO added. RFLXG = MORPH.@08/14/17 1458: SPHERE added. RFLXG = MORPH.@08/14/17 1458: ELLIPTO added. RFLXG = MORPH.@08/14/17 1458: SIDEROCYTE added. RFLXG = MORPH.@08/14/17 1458: ADARSH BODIES added. RFLXG = MORPH.@08/14/17 1458: PELGER-HUET added. RFLXG = MORPH.@08/14/17 1458: ANA LILIA BODIES added. RFLXG = MORPH.@08/14/17 1458: SICKLE added. RFLXG = MORPH.@08/14/17 1458: TARGET added. RFLXG = MORPH.@08/14/17 1458: TEAR added. RFLXG = MORPH.@08/14/17 1458: OVAL added. RFLXG = MORPH.@08/14/17 1458: STOMATO added. RFLXG = MORPH.@08/14/17 1458: HELMET CELLS added. RFLXG = MORPH.@08/14/17 1458: HJ BODIES added. RFLXG = MORPH.@08/14/17 1458: TOXIC GRAN added. RFLXG = MORPH.@08/14/17 1458: TOXIC VAC added. RFLXG = MORPH.@08/14/17 145: DOHLE BODIES added. RFLXG = MORPH.@08/14/17 145: NIMISHA CELLS added. RFLXG = MORPH.@08/14/171457: CRENATED RBC added. RFLXG = MORPH.@08/14/17 1458: ACANTHO added. RFLXG = MORPH.@08/14/17 145: ROLY RODS added. RFLXG = MORPH.@08/14/17 145: ROULEAUX added. RFLXG = MORPH.@08/14/17 145: SCHISTO added. RFLXG = MORPH.@08/14/17 145: PARASITES added. RFLXG = MORPH. Performed By: #### C MP, PT, CBC, PTT, ESR, CPK 1, CKMB 1, TROP 1, ST OCC BLD ####Main Lab - [id number] [place], [place] [address] MCV 62.5 fL Low 78.0-100.0 [facility] Comment on above: Order Comment: @07/29 03/14 145: SMUDGE CELLS added. RFLXG = MORPH.@08/14/17 145: GIANT PLATELETS added. RFLXG = MORPH.@08/14/17 145: POLYCHROM added. RFLXG = MORPH.@08/14/17 1458: HYPERCHROM added. RFLXG = MORPH.@08/14/17 1458: HYPOCHROM added. RFLXG = MORPH.@08/14/17 1458: POIK added. RFLXG = MORPH.@08/14/17 1458: BASO STIP added. RFLXG = MORPH.@08/14/17 1458: ANISO added. RFLXG = MORPH.@08/14/17 145: MICRO added. RFLXG = MORPH.@08/14/17 145: MACRO added. RFLXG = MORPH.@08/14/17 1458: SPHERE added. RFLXG = MORPH.@08/14/17 1458: ELLIPTO added. RFLXG = MORPH.@08/14/17 1458: SIDEROCYTE added. RFLXG = MORPH.@08/14/17 1458: ADARSH BODIES added. RFLXG = MORPH.@08/14/17 1458: PELGER-HUET added. RFLXG = MORPH.@08/14/17 1458: ANA LILIA BODIES added. RFLXG = MORPH.@08/14/17 1458: SICKLE added. RFLXG = MORPH.@08/14/17 1458: TARGET added. RFLXG = MORPH.@08/14/17 1458: TEAR added. RFLXG = MORPH.@08/14/17 1458: OVAL added. RFLXG = MORPH.@08/14/17 1458: STOMATO added. RFLXG = MORPH.@08/14/17 1458: HELMET CELLS added. RFLXG = MORPH.@08/14/17 1458: HJ BODIES added. RFLXG = MORPH.@08/14/17 1458: TOXIC GRAN added. RFLXG = MORPH.@08/14/17 1458: TOXIC VAC added. RFLXG = MORPH.@08/14/17 1458: DOHLE BODIES added. RFLXG = MORPH.@08/14/17 1458: NIMISHA CELLS added. RFLXG = MORPH.@08/14/17 145: CRENATED RBC added. RFLXG = MORPH.@08/14/17 1458: ACANTHO added. RFLXG = MORPH.@08/14/17 1458: ROLY RODS added. RFLXG = MORPH.@08/14/17 1458: ROULEAUX added. RFLXG = MORPH.@08/14/17 1458: SCHISTO added. RFLXG = MORPH.@08/14/17 1458: PARASITES added. RFLXG = MORPH. Performed By: #### C MP, PT, CBC, PTT, ESR, CPK 1, CKMB 1, TROP 1, ST OCC BLD ####Main Lab - [id number] [place], [place] [address] Monocytes 1.6 10 3/uL High 0.2-0.8 [facility] Comment on above: Order Comment: @07/29 03/14 145: SMUDGE CELLS added. RFLXG = MORPH.@08/14/17 1458: GIANT PLATELETS added. RFLXG = MORPH.@08/14/17 1458: POLYCHROM added. RFLXG = MORPH.@08/14/17 1458: HYPERCHROM added. RFLXG = MORPH.@08/14/17 1458: HYPOCHROM added. RFLXG = MORPH.@08/14/17 1458: POIK added. RFLXG = MORPH.@08/14/17 1458: BASO STIP added. RFLXG = MORPH.@08/14/17 1458: ANISO added. RFLXG = MORPH.@08/14/17 1458: MICRO added. RFLXG = MORPH.@08/14/17 145: MACRO added. RFLXG = MORPH.@08/14/17 145: SPHERE added. RFLXG = MORPH.@08/14/17 145: ELLIPTO added. RFLXG = MORPH.@08/14/17 1458: SIDEROCYTE added. RFLXG = MORPH.@08/14/17 1458: ADARSH BODIES added. RFLXG = MORPH.@08/14/17 1458: PELGER-HUET added. RFLXG = MORPH.@08/14/17 1458: ANA LILIA BODIES added. RFLXG = MORPH.@08/14/17 1458: SICKLE added. RFLXG = MORPH.@08/14/17 1458: TARGET added. RFLXG = MORPH.@08/14/17 1458: TEAR added. RFLXG = MORPH.@08/14/17 1458: OVAL added. RFLXG = MORPH.@08/14/17 1458: STOMATO added. RFLXG = MORPH.@08/14/17 1458: HELMET CELLS added. RFLXG = MORPH.@08/14/17 1458: HJ BODIES added. RFLXG = MORPH.@08/14/17 1458: TOXIC GRAN added. RFLXG = MORPH.@08/14/17 1458: TOXIC VAC added. RFLXG = MORPH.@08/14/17 1458: DOHLE BODIES added. RFLXG = MORPH.@08/14/17 145: NIMISHA CELLS added. RFLXG = MORPH.@08/14/17 1458: CRENATED RBC added. RFLXG = MORPH.@08/14/17 1458: ACANTHO added. RFLXG = MORPH.@08/14/17 145: ROLY RODS added. RFLXG = MORPH.@08/14/17 1458: ROULEAUX added. RFLXG = MORPH.@08/14/17 1458: SCHISTO added. RFLXG = MORPH.@08/14/17 1458: PARASITES added. RFLXG = MORPH. Performed By: #### C MP, PT, CBC, PTT, ESR, CPK 1, CKMB 1, TROP 1, ST OCC BLD ####Main Lab - [id number] [place], [place] [address] Monocytes/100 leukocytes 9.9 % High 1.7-9.3 [facility] Comment on above: Order Comment: @07/29 03/14 145: SMUDGE CELLS added. RFLXG = MORPH.@08/14/17 1458: GIANT PLATELETS added. RFLXG = MORPH.@08/14/17 1458: POLYCHROM added. RFLXG = MORPH.@08/14/17 1458: HYPERCHROM added. RFLXG = MORPH.@08/14/17 145: HYPOCHROM added. RFLXG = MORPH.@08/14/17 1458: POIK added. RFLXG = MORPH.@08/14/17 1458: BASO STIP added. RFLXG = MORPH.@08/14/17 1458: ANISO added. RFLXG = MORPH.@08/14/17 1458: MICRO added. RFLXG = MORPH.@08/14/17 1458: MACRO added. RFLXG = MORPH.@08/14/17 1458: SPHERE added. RFLXG = MORPH.@08/14/17 145: ELLIPTO added. RFLXG = MORPH.@08/14/17 1458: SIDEROCYTE added. RFLXG = MORPH.@08/14/178: ADARSH BODIES added. RFLXG = MORPH.@08/14/17 145: PELGER-HUET added. RFLXG = MORPH.@08/14/17 145: ANA LILIA BODIES added. RFLXG = MORPH.@08/14/17 1458: SICKLE added. RFLXG = MORPH.@08/14/17 1458: TARGET added. RFLXG = MORPH.@08/14/17 1458: TEAR added. RFLXG = MORPH.@08/14/17 1458: OVAL added. RFLXG = MORPH.@08/14/17 1458: STOMATO added. RFLXG = MORPH.@08/14/17 1458: HELMET CELLS added. RFLXG = MORPH.@08/14/17 1458: HJ BODIES added. RFLXG = MORPH.@08/14/17 1458: TOXIC GRAN added. RFLXG = MORPH.@08/14/17 145: TOXIC VAC added. RFLXG = MORPH.@08/14/17 145: DOHLE BODIES added. RFLXG = MORPH.@08/14/17 145: NIMISHA CELLS added. RFLXG = MORPH.@08/14/17 145: CRENATED RBC added. RFLXG = MORPH.@08/14/17 145: ACANTHO added. RFLXG = MORPH.@08/14/17 145: ROLY RODS added. RFLXG = MORPH.@08/14/17 145: ROULEAUX added. RFLXG = MORPH.@08/14/17 145: SCHISTO added. RFLXG = MORPH.@08/14/17 145: PARASITES added. RFLXG = MORPH. Performed By: #### C MP, PT, CBC, PTT, ESR, CPK 1, CKMB 1, TROP 1, ST OCC BLD ####Main Lab - [id number] [place], [place] [address] Neutrophils 13.0 10 3/uL High 1.5-6.7 [facility] Comment on above: Order Comment: @07/29: SMUDGE CELLS added. RFLXG = MORPH.@08/14/17 145: GIANT PLATELETS added. RFLXG = MORPH.@08/14/17 1458: POLYCHROM added. RFLXG = MORPH.@08/14/17 145: HYPERCHROM added. RFLXG = MORPH.@08/14/17 1458: HYPOCHROM added. RFLXG = MORPH.@08/14/17 1458: POIK added. RFLXG = MORPH.@08/14/17 1458: BASO STIP added. RFLXG = MORPH.@08/14/17 1458: ANISO added. RFLXG = MORPH.@08/14/17 1458: MICRO added. RFLXG = MORPH.@08/14/17 1458: MACRO added. RFLXG = MORPH.@08/14/17 1458: SPHERE added. RFLXG = MORPH.@08/14/17 145: ELLIPTO added. RFLXG = MORPH.@08/14/17 145: SIDEROCYTE added. RFLXG = MORPH.@08/14/17 145: ADARSH BODIES added. RFLXG = MORPH.@08/14/17 145: PELGER-HUET added. RFLXG = MORPH.@08/14/17 145: ANA LILIA BODIES added. RFLXG = MORPH.@08/14/17 145: SICKLE added. RFLXG = MORPH.@08/14/17 1458: TARGET added. RFLXG = MORPH.@08/14/17 145: TEAR added. RFLXG = MORPH.@08/14/17 145: OVAL added. RFLXG = MORPH.@08/14/17 1458: STOMATO added. RFLXG = MORPH.@08/14/17 1458: HELMET CELLS added. RFLXG = MORPH.@08/14/17 1458: HJ BODIES added. RFLXG = MORPH.@08/14/17 1458: TOXIC GRAN added. RFLXG = MORPH.@08/14/17 1458: TOXIC VAC added. RFLXG = MORPH.@08/14/17 145: DOHLE BODIES added. RFLXG = MORPH.@08/14/17 145: NIMISHA CELLS added. RFLXG = MORPH.@08/14/17 145: CRENATED RBC added. RFLXG = MORPH.@08/14/17 145: ACANTHO added. RFLXG = MORPH.@08/14/17 145: ROLY RODS added. RFLXG = MORPH.@08/14/17 1458: ROULEAUX added. RFLXG = MORPH.@08/14/17 1458: SCHISTO added. RFLXG = MORPH.@08/14/17 145: PARASITES added. RFLXG = MORPH. Performed By: #### C MP, PT, CBC, PTT, ESR, CPK 1, CKMB 1, TROP 1, ST OCC BLD ####Main Lab - [id number] [place] [address] Platelet mean volume (PMV) 8.7 fL Normal 6.0-9.5 [facility] Comment on above: Order Comment: @07/29 03/14 1458: SMUDGE CELLS added. RFLXG = MORPH.@08/14/17 145: GIANT PLATELETS added. RFLXG = MORPH.@08/14/17 1458: POLYCHROM added. RFLXG = MORPH.@08/14/17 1458: HYPERCHROM added. RFLXG = MORPH.@08/14/17 1458: HYPOCHROM added. RFLXG = MORPH.@08/14/17 1458: POIK added. RFLXG = MORPH.@08/14/17 1458: BASO STIP added. RFLXG = MORPH.@08/14/17 1458: ANISO added. RFLXG = MORPH.@08/14/17 1458: MICRO added. RFLXG = MORPH.@08/14/17 1458: MACRO added. RFLXG = MORPH.@08/14/17 1458: SPHERE added. RFLXG = MORPH.@08/14/17 1458: ELLIPTO added. RFLXG = MORPH.@08/14/17 1458: SIDEROCYTE added. RFLXG = MORPH.@08/14/17 1458: ADARSH BODIES added. RFLXG = MORPH.@08/14/17 1458: PELGER-HUET added. RFLXG = MORPH.@08/14/17 1458: ANA LILIA BODIES added. RFLXG = MORPH.@08/14/17 1458: SICKLE added. RFLXG = MORPH.@08/14/17 1458: TARGET added. RFLXG = MORPH.@08/14/17 1458: TEAR added. RFLXG = MORPH.@08/14/17 1458: OVAL added. RFLXG = MORPH.@08/14/17 1458: STOMATO added. RFLXG = MORPH.@08/14/17 1458: HELMET CELLS added. RFLXG = MORPH.@08/14/17 1458: HJ BODIES added. RFLXG = MORPH.@08/14/17 1458: TOXIC GRAN added. RFLXG = MORPH.@08/14/17 1458: TOXIC VAC added. RFLXG = MORPH.@08/14/17 1458: DOHLE BODIES added. RFLXG = MORPH.@08/14/17 1458: NIMISHA CELLS added. RFLXG = MORPH.@08/14/17 145: CRENATED RBC added. RFLXG = MORPH.@08/14/17 145: ACANTHO added. RFLXG = MORPH.@08/14/17 145: ROLY RODS added. RFLXG = MORPH.@08/14/17 145: ROULEAUX added. RFLXG = MORPH.@08/14/17 145: SCHISTO added. RFLXG = MORPH.@08/14/17 145: PARASITES added. RFLXG = MORPH. Performed By: #### C MP, PT, CBC, PTT, ESR, CPK 1, CKMB 1, TROP 1, ST OCC BLD ####Main Lab - [id number] [place], [place] [address] Platelets 413 10 3/uL Normal 150-450 [facility] Comment on above: Order Comment: @07/29 03/14 145: SMUDGE CELLS added. RFLXG = MORPH.@08/14/17 1458: GIANT PLATELETS added. RFLXG = MORPH.@08/14/17 1458: POLYCHROM added. RFLXG = MORPH.@08/14/17 145: HYPERCHROM added. RFLXG = MORPH.@08/14/17 1458: HYPOCHROM added. RFLXG = MORPH.@08/14/17 1458: POIK added. RFLXG = MORPH.@08/14/17 1458: BASO STIP added. RFLXG = MORPH.@08/14/17 1458: ANISO added. RFLXG = MORPH.@08/14/17 1458: MICRO added. RFLXG = MORPH.@08/14/17 145: MACRO added. RFLXG = MORPH.@08/14/17 145: SPHERE added. RFLXG = MORPH.@08/14/17 145: ELLIPTO added. RFLXG = MORPH.@08/14/17 1458: SIDEROCYTE added. RFLXG = MORPH.@08/14/17 145: ADARSH BODIES added. RFLXG = MORPH.@08/14/17 145: PELGER-HUET added. RFLXG = MORPH.@08/14/17 145: ANA LILIA BODIES added. RFLXG = MORPH.@08/14/17 145: SICKLE added. RFLXG = MORPH.@08/14/17 145: TARGET added. RFLXG = MORPH.@08/14/17 145: TEAR added. RFLXG = MORPH.@08/14/171457: OVAL added. RFLXG = MORPH.@08/14/17 145: STOMATO added. RFLXG = MORPH.@08/14/17 145: HELMET CELLS added. RFLXG = MORPH.@08/14/17 145: HJ BODIES added. RFLXG = MORPH.@08/14/17 145: TOXIC GRAN added. RFLXG = MORPH.@08/14/17 1458: TOXIC VAC added. RFLXG = MORPH.@08/14/17 145: DOHLE BODIES added. RFLXG = MORPH.@08/14/17 145: NIMISHA CELLS added. RFLXG = MORPH.@08/14/17 145: CRENATED RBC added. RFLXG = MORPH.@08/14/17 145: ACANTHO added. RFLXG = MORPH.@08/14/171457: ROLY RODS added. RFLXG = MORPH.@08/14/171457: ROULEAUX added. RFLXG = MORPH.@08/14/171457: SCHISTO added. RFLXG = MORPH.@08/14/17 145: PARASITES added. RFLXG = MORPH. Performed By: #### C MP, PT, CBC, PTT, ESR, CPK 1, CKMB 1, TROP 1, ST OCC BLD ####Main Lab - [id number] [place], [place] [address] Segmented Neutrophils/100 leukocytes 81.1 % High 36.0-66.0 [facility] Comment on above: Order Comment: @07/29 03/14 1458: SMUDGE CELLS added. RFLXG = MORPH.@08/14/17 1458: GIANT PLATELETS added. RFLXG = MORPH.@08/14/17 1458: POLYCHROM added. RFLXG = MORPH.@08/14/17 1458: HYPERCHROM added. RFLXG = MORPH.@08/14/17 145: HYPOCHROM added. RFLXG = MORPH.@08/14/17 145: POIK added. RFLXG = MORPH.@08/14/17 1458: BASO STIP added. RFLXG = MORPH.@08/14/17 1458: ANISO added. RFLXG = MORPH.@08/14/17 1458: MICRO added. RFLXG = MORPH.@08/14/17 1458: MACRO added. RFLXG = MORPH.@08/14/17 1458: SPHERE added. RFLXG = MORPH.@08/14/17 145: ELLIPTO added. RFLXG = MORPH.@08/14/17 1458: SIDEROCYTE added. RFLXG = MORPH.@08/14/17 1458: ADARSH BODIES added. RFLXG = MORPH.@08/14/17 1458: PELGER-HUET added. RFLXG = MORPH.@08/14/17 1458: ANA LILIA BODIES added. RFLXG = MORPH.@08/14/17 1458: SICKLE added. RFLXG = MORPH.@08/14/17 1458: TARGET added. RFLXG = MORPH.@08/14/17 145: TEAR added. RFLXG = MORPH.@08/14/17 145: OVAL added. RFLXG = MORPH.@08/14/17 1458: STOMATO added. RFLXG = MORPH.@08/14/17 1458: HELMET CELLS added. RFLXG = MORPH.@08/14/17 1458: HJ BODIES added. RFLXG = MORPH.@08/14/17 1458: TOXIC GRAN added. RFLXG = MORPH.@08/14/17 1458: TOXIC VAC added. RFLXG = MORPH.@08/14/17 1458: DOHLE BODIES added. RFLXG = MORPH.@08/14/17 1458: NIMISHA CELLS added. RFLXG = MORPH.@08/14/17 1458: CRENATED RBC added. RFLXG = MORPH.@08/14/17 1458: ACANTHO added. RFLXG = MORPH.@08/14/17 1458: ROLY RODS added. RFLXG = MORPH.@08/14/171457: ROULEAUX added. RFLXG = MORPH.@08/14/171457: SCHISTO added. RFLXG = MORPH.@08/14/17 145: PARASITES added. RFLXG = MORPH. Performed By: #### C MP, PT, CBC, PTT, ESR, CPK 1, CKMB 1, TROP 1, ST OCC BLD ####Main Lab - [id number] [place], [place] [address] WBC (Leukocytes) 16.0 10 3/uL High 4.0-10.5 [facility] Comment on above: Order Comment: @07/29: SMUDGE CELLS added. RFLXG = MORPH.@08/14/17 1458: GIANT PLATELETS added. RFLXG = MORPH.@08/14/17 1458: POLYCHROM added. RFLXG = MORPH.@08/14/17 1458: HYPERCHROM added. RFLXG = MORPH.@08/14/17 1458: HYPOCHROM added. RFLXG = MORPH.@08/14/17 1458: POIK added. RFLXG = MORPH.@08/14/17 1458: BASO STIP added. RFLXG = MORPH.@08/14/17 1458: ANISO added. RFLXG = MORPH.@08/14/17 1458: MICRO added. RFLXG = MORPH.@08/14/17 145: MACRO added. RFLXG = MORPH.@08/14/17 1458: SPHERE added. RFLXG = MORPH.@08/14/17 1458: ELLIPTO added. RFLXG = MORPH.@08/14/17 1458: SIDEROCYTE added. RFLXG = MORPH.@08/14/17 1458: ADARSH BODIES added. RFLXG = MORPH.@08/14/17 1458: PELGER-HUET added. RFLXG = MORPH.@08/14/17 1458: ANA LILIA BODIES added. RFLXG = MORPH.@08/14/17 1458: SICKLE added. RFLXG = MORPH.@08/14/17 1458: TARGET added. RFLXG = MORPH.@08/14/17 1458: TEAR added. RFLXG = MORPH.@08/14/17 1458: OVAL added. RFLXG = MORPH.@08/14/17 1458: STOMATO added. RFLXG = MORPH.@08/14/17 1458: HELMET CELLS added. RFLXG = MORPH.@08/14/17 1458: HJ BODIES added. RFLXG = MORPH.@08/14/17 1458: TOXIC GRAN added. RFLXG = MORPH.@08/14/17 1458: TOXIC VAC added. RFLXG = MORPH.@08/14/17 1458: DOHLE BODIES added. RFLXG = MORPH.@08/14/17 1458: NIMISHA CELLS added. RFLXG = MORPH.@08/14/17 1458: CRENATED RBC added. RFLXG = MORPH.@08/14/17 1458: ACANTHO added. RFLXG = MORPH.@08/14/17 1458: ROLY RODS added. RFLXG = MORPH.@08/14/17 1458: ROULEAUX added. RFLXG = MORPH.@08/14/17 1458: SCHISTO added. RFLXG = MORPH.@08/14/17 1458: PARASITES added. RFLXG = MORPH. Performed By: #### C MP, PT, CBC, PTT, ESR, CPK 1, CKMB 1, TROP 1, ST OCC BLD ####Main Lab - [id number] [place] [address] COMPREHENSIVE METABOLIC PANE [place] 08-14-2017 Albumin 4.0 g/dL Normal 3.9-5.0 [facility] Comment on above: Performed By: #### C MP, PT, CBC, PTT, ESR, CPK 1, CKMB 1, TROP 1, ST OCC BLD ####Main Lab - [id number] [place] [address] Albumin/Globulin Ratio 1.3 {ratio} Normal 1.1-1.8 [facility] Comment on above: Performed By: #### C MP, PT, CBC, PTT, ESR, CPK 1, CKMB 1, TROP 1, ST OCC BLD ####Main Lab - [id number] [place], [place] [address] Alkaline phosphatase (ALP) 150 U/L High 43-122 [facility] Comment on above: Performed By: #### C MP, PT, CBC, PTT, ESR, CPK 1, CKMB 1, TROP 1, ST OCC BLD ####Main Lab - [place] [id number] ALT/SGPT 301 U/L High 7-56 [facility] Comment on above: Performed By: #### C MP, PT, CBC, PTT, ESR, CPK 1, CKMB 1, TROP 1, ST OCC BLD ####Main Lab - [id number] [place] [address] Anion gap 22 mmol/L High 9-18 [facility] Comment on above: Performed By: #### C MP, PT, CBC, PTT, ESR, CPK 1, CKMB 1, TROP 1, ST OCC BLD ####Main Lab - [id number] [place] [address] AST/SGOT 384 U/L High 8-39 [facility] Comment on above: Result Comment: Spec imen Slightly Hemolyzed. Performed By: #### C MP, PT, CBC, PTT, ESR, CPK 1, CKMB 1, TROP 1, ST OCC BLD ####Main Lab - [id number] [place], [place] [address] Bilirubin (total) 1.2 mg/dL Normal 0.2-1.3 [facility] Comment on above: Performed By: #### C MP, PT, CBC, PTT, ESR, CPK 1, CKMB 1, TROP 1, ST OCC BLD ####Main Lab - [id number] [place] [address] BUN (urea nitrogen) 35 mg/dL High 7-21 [facility] Comment on above: Performed By: #### C MP, PT, CBC, PTT, ESR, CPK 1, CKMB 1, TROP 1, ST OCC BLD ####Main Lab - [id number] [place] [address] BUN/Creatinine Ratio 24.8 Ratio Normal 5.0-42.0 [facility] Comment on above: Performed By: #### C MP, PT, CBC, PTT, ESR, CPK 1, CKMB 1, TROP 1, ST OCC BLD ####Main Lab - [id number] [place] [address] Calcium 8.8 mg/dL Normal 8.4-10.2 [facility] Comment on above: Performed By: #### C MP, PT, CBC, PTT, ESR, CPK 1, CKMB 1, TROP 1, ST OCC BLD ####Main Lab - [id number] [place] [address] Chloride 98 mmol/L Normal 98-107 [facility] Comment on above: Performed By: #### C MP, PT, CBC, PTT, ESR, CPK 1, CKMB 1, TROP 1, ST OCC BLD ####Main Lab - [id number] [place] [address] CO2 15 mmol/L Low 22-31 [facility] Comment on above: Performed By: #### C MP, PT, CBC, PTT, ESR, CPK 1, CKMB 1, TROP 1, ST OCC BLD ####Main Lab - [id number] [place] [address] Creatinine 1.41 mg/dL High 0.80-1.30 [facility] Comment on above: Performed By: #### C MP, PT, CBC, PTT, ESR, CPK 1, CKMB 1, TROP 1, ST OCC BLD ####Main Lab - [id number] [place] [address] Creatinine 35.98 mg/dL Normal [facility] Comment on above: Result Comment: COCK CROFT-GAULT FORMULA 1974 Performed By: #### C MP, PT, CBC, PTT, ESR, CPK 1, CKMB 1, TROP 1, ST OCC BLD ####Main Lab - [id number] [place] [address] eGFR (non-black) 38.000 mL/min/{1.73_m2} Normal [facility] Comment on above: Performed By: #### C MP, PT, CBC, PTT, ESR, CPK 1, CKMB 1, TROP 1, ST OCC BLD ####Main Lab - [id number] [place] [address] Globulin 3.0 g/dL Normal [facility] Comment on above: Performed By: #### C MP, PT, CBC, PTT, ESR, CPK 1, CKMB 1, TROP 1, ST OCC BLD ####Main Lab - [id number] [place] [address] Glucose mass conc 86 mg/dL Normal 70-99 [facility] Comment on above: Result Comment: The glucose range is based on recommendations from theAmerican Diabetes Association for fasting blood glucoserange. Performed By: #### C MP, PT, CBC, PTT, ESR, CPK 1, CKMB 1, TROP 1, ST OCC BLD ####Main Lab - [id number] [place] [address] Potassium molar conc 5.7 mmol/L High 3.6-5.0 [facility] Comment on above: Result Comment: Spec imen Slightly Hemolyzed. Performed By: #### C MP, PT, CBC, PTT, ESR, CPK 1, CKMB 1, TROP 1, ST OCC BLD ####Main Lab - [id number] [place] [address] Protein 7.0 g/dL Normal 6.3-8.2 [facility] Comment on above: Performed By: #### C MP, PT, CBC, PTT, ESR, CPK 1, CKMB 1, TROP 1, ST OCC BLD ####Main Lab - [id number] [place] [address] Sodium 129 mmol/L Low 137-145 [facility] Comment on above: Performed By: #### C MP, PT, CBC, PTT, ESR, CPK 1, CKMB 1, TROP 1, ST OCC BLD ####Main Lab - [id number] [place], [place] [address] Age 57 Years Normal [facility] Comment on above: Performed By: #### C MP, PT, CBC, PTT, ESR, CPK 1, CKMB 1, TROP 1, ST OCC BLD ####Main Lab - [id number] [place], [place] [address] CREATINE KINASEon 08-14-2017 Creatine kinase (CK) 249 U/L High 55-170 [facility] Comment on above: Result Comment: Spec imen Slightly Hemolyzed. Performed By: #### C MP, PT, CBC, PTT, ESR, CPK 1, CKMB 1, TROP 1, ST OCC BLD ####Main Lab - [id number] [place], [place] [address] CREATINE KINASE MBon 017 CKMB 16.7 ng/mL Critically high 0.0-3.7 [facility] Comment on above: Result Comment: Crit ical Result CKMB: Called to: CONSTANTINO JORGENSEN RN at:16:01:12 by:RENETTA Read back by:CONSTANTINO JORGENSEN RN Performed By: #### C MP, PT, CBC, PTT, ESR, CPK 1, CKMB 1, TROP 1, ST OCC BLD ####Main Lab - [id number] [place], [place] [address] CT CHEST ABD PELVIS W/O CONo n 08-14-2017 CT CHEST ABD PELVIS W/O CON [facility] [address] [place] [id number] Diagnostic Imaging Report : [id number] Signed Name: BLAS LUJAN MRUN: [id number] : 1960 Loc: ED Age / Sex: 57 / F ADM Status: REG ER ADM Date: 08/14/17 Room/Bed: Ordering Physician: Rylie DELACRUZ, Dann Wiley Procedure: CT CHEST ABD PELVIS W/O CON Order Number(s): [id number] Ordered Date: 08/14/17 Ordered Time: 1634 EXAMINATION: CT OF THE CHEST, ABDOMEN, AND PELVIS WITHOUT CONTRAST 08/14/2017 6:12 pm TECHNIQUE: CT of the chest, abdomen and pelvis was performed without the administration of intravenous contrast. Multiplanar reformatted images are provided for review. Dose modulation, iterative reconstruction, and/or weight based adjustment of the mA/kV was utilized to reduce the radiation dose to as low as reasonably achievable. COMPARISON: CT abdomen pelvis 12/01/2015 and MRI 07/11/2017 HISTORY: leukocytosis, SIRS, cough, elevated liver enzymes FINDINGS: Chest: Mediastinum: There several mediastinal lymph nodes largest right peritracheal region measuring 1.8 cm short axis. Blood pool is somewhat decreased density suggesting anemia. Lungs/pleura: There is a small right pleural effusion with minimal overlying atelectasis. There is minimal ground-glass infiltrate left lower lobe. Soft Tissues/Bones: At the T11-12 level there is endplate erosion. There is loss of height T11. This is new from 02/04/2017. Given the fluid signal at the endplates on MRI of July 11, 2017 I suspect discitis. There is no paraspinal fluid collections. Abdomen/Pelvis: Organs: The liver, spleen, pancreas, adrenal glands and kidneys are within normal limits. There is trace fluid around the gallbladder. There is slight increased density in the gallbladder could represent sludge or tiny stones. GI/Bowel: There are no dilated loops of bowel. There are few diverticuli sigmoid colon. Portion of the appendix felt to be visualized within normal limits Pelvis: There is a small to moderate free fluid seen in the pelvis suggesting inflammatory or infectious process in the abdomen. Peritoneum/Retroperitoneum: There are several retroperitoneal lymph nodes which measure just under 1 cm short axis. Bones/Soft Tissues: There is severe disc space narrowing L5-S1. There is anterolisthesis of L5 measuring 1.3 cm. IMPRESSION: There is progression and erosion along the endplates at T11-12 which could represent discitis. Further evaluation with contrast-enhanced MRI recommended. Moderate right pleural effusion. There is minimal overlying atelectasis. Minimal ground-glass infiltrate left lung base and right perihilar region. Adenopathy right peritracheal region in the mediastinum. This could be reactive. Follow-up CT scan of the chest is recommended in 3 months to ensure resolution of chest findings. Slight increased density in the gallbladder could represent sludge or tiny stones. Consider further evaluation with ultrasound. Free fluid around liver edge and within the pelvis suggests inflammatory or infectious process not definitively localized. Contrast-enhanced CT could prove beneficial. There are diverticuli scattered in the sigmoid colon without focal inflammatory change noted. Several subcentimeter retroperitoneal lymph nodes noted. Severe degenerative change with grade 2 anterolisthesis L5 on S1. Findings were discussed with Dr. Dann Youngblood MD at 6:31 pm on 08/14/2017. Dictated By: Min Lynn MD Dictated Date/Time: 08/14/171813 Signed By: Min Lynn MD Signed Date/Time: 08/14/171834 Transcribed Date/Time: 08/14/171830 Normal [facility] FLU SCREENon 08-14-2017 FLU SCREEN FLU SCREEN: FLU AB NEG FLU A B antigens may be below the test's detection limits. FLU SCRN: A+/B+/N/P FLU A AND B SCREEN: PRESUMPTIVE NEGATIVE Normal [facility] Comment on above: Performed By: #### C MP, PT, CBC, PTT, ESR, CPK 1, CKMB 1, TROP 1, ST OCC BLD ####Main Lab - [id number] [place], [place] [address] LACTATEon 08-14-2017 Lactate 4.2 mmol/L Critically high 0.7-2.4 [facility] Comment on above: Result Comment: Crit ical Result LAC: Called to: CONSTANTINO JORGENSEN RN at:15:15:57 by:NATO Read back by:CONSTANTINO JORGENSEN RN Performed By: #### C MP, PT, CBC, PTT, ESR, CPK 1, CKMB 1, TROP 1, ST OCC BLD ####Main Lab - [id number] [place], [place] [address] OVALOCYTESon 08-14-2017 OVALOCYTES 1+ Normal [facility] Comment on above: Order Comment: @07/29 03/14 1458: SMUDGE CELLS added. RFLXG = MORPH.@08/14/17 1458: GIANT PLATELETS added. RFLXG = MORPH.@08/14/17 1458: POLYCHROM added. RFLXG = MORPH.@08/14/17 1458: HYPERCHROM added. RFLXG = MORPH.@08/14/17 1458: HYPOCHROM added. RFLXG = MORPH.@08/14/17 1458: POIK added. RFLXG = MORPH.@08/14/17 1458: BASO STIP added. RFLXG = MORPH.@08/14/17 1458: ANISO added. RFLXG = MORPH.@08/14/17 1458: MICRO added. RFLXG = MORPH.@08/14/17 1458: MACRO added. RFLXG = MORPH.@08/14/17 145: SPHERE added. RFLXG = MORPH.@08/14/17 145: ELLIPTO added. RFLXG = MORPH.@08/14/17 1458: SIDEROCYTE added. RFLXG = MORPH.@08/14/17 145: ADARSH BODIES added. RFLXG = MORPH.@08/14/17 145: PELGER-HUET added. RFLXG = MORPH.@08/14/17 1458: ANA LILIA BODIES added. RFLXG = MORPH.@08/14/17 1458: SICKLE added. RFLXG = MORPH.@08/14/17 1458: TARGET added. RFLXG = MORPH.@08/14/17 1458: TEAR added. RFLXG = MORPH.@08/14/17 1458: OVAL added. RFLXG = MORPH.@08/14/17 1458: STOMATO added. RFLXG = MORPH.@08/14/17 1458: HELMET CELLS added. RFLXG = MORPH.@08/14/17 1458: HJ BODIES added. RFLXG = MORPH.@08/14/17 1458: TOXIC GRAN added. RFLXG = MORPH.@08/14/17 145: TOXIC VAC added. RFLXG = MORPH.@08/14/17 145: DOHLE BODIES added. RFLXG = MORPH.@08/14/17 1458: NIMISHA CELLS added. RFLXG = MORPH.@08/14/17 145: CRENATED RBC added. RFLXG = MORPH.@08/14/17 1458: ACANTHO added. RFLXG = MORPH.@08/14/17 1458: ROLY RODS added. RFLXG = MORPH.@08/14/17 1458: ROULEAUX added. RFLXG = MORPH.@08/14/17 1458: SCHISTO added. RFLXG = MORPH.@08/14/17 1458: PARASITES added. RFLXG = MORPH. Performed By: #### C MP, PT, CBC, PTT, ESR, CPK 1, CKMB 1, TROP 1, ST OCC BLD ####Main Lab - [id number] [place] [address] TROPONIN Ion 08-14-2017 Troponin I.cardiac mass conc 0.05 ng/mL High 0.0-0.03 [facility] Comment on above: Result Comment: Refe rence Interval < or = 0.03 ng/mLClinical Correlation Needed 0.03 - 0.12 ng/mLAMI Cutoff, Presumptive = or > 0.12 ng/mL Performed By: #### C MP, PT, CBC, PTT, ESR, CPK 1, CKMB 1, TROP 1, ST OCC BLD ####Main Lab - [id number] [place] [address] URINE PROTOCOLon 08-14-2017 BLOOD,URINE Negative Normal NEGATIVE [facility] Comment on above: Performed By: #### C MP, PT, CBC, PTT, ESR, CPK 1, CKMB 1, TROP 1, ST OCC BLD ####Main Lab - [id number] [place] [address] HYALINE CASTS, URINE >50 Abnormal [facility] Comment on above: Performed By: #### C MP, PT, CBC, PTT, ESR, CPK 1, CKMB 1, TROP 1, ST OCC BLD ####Main Lab - [id number] [place] [address] MUCUS,URINE TRACE Normal [facility] Comment on above: Performed By: #### C MP, PT, CBC, PTT, ESR, CPK 1, CKMB 1, TROP 1, ST OCC BLD ####Main Lab - [id number] [place] [address] NITRITE,URINE Negative Normal NEGATIVE [facility] Comment on above: Performed By: #### C MP, PT, CBC, PTT, ESR, CPK 1, CKMB 1, TROP 1, ST OCC BLD ####Main Lab - [id number] [place] [address] PROTEIN,URINE 30 mg/dL Abnormal NEGATIVE [facility] Comment on above: Performed By: #### C MP, PT, CBC, PTT, ESR, CPK 1, CKMB 1, TROP 1, ST OCC BLD ####Main Lab - [id number] [place] [address] REFLEX TO URINE CULTURE SEE URINE CULTURE Normal [facility] Comment on above: Performed By: #### C MP, PT, CBC, PTT, ESR, CPK 1, CKMB 1, TROP 1, ST OCC BLD ####Main Lab - [id number] [place] [address] SQUAMOUS EPITHELIAL CELL,UR MANY Abnormal [facility] Comment on above: Performed By: #### C MP, PT, CBC, PTT, ESR, CPK 1, CKMB 1, TROP 1, ST OCC BLD ####Main Lab - [id number] [place] [address] TRANSITIONAL EPI CELLS,URINE RARE Abnormal [facility] Comment on above: Performed By: #### C MP, PT, CBC, PTT, ESR, CPK 1, CKMB 1, TROP 1, ST OCC BLD ####Main Lab - [id number] [place] [address] Urine, clarity SLIGHTLY-CLOUDY Normal [facility] Comment on above: Performed By: #### C MP, PT, CBC, PTT, ESR, CPK 1, CKMB 1, TROP 1, ST OCC BLD ####Main Lab - [place] [address] Urine, color SERGEY Abnormal [facility] Comment on above: Performed By: #### C MP, PT, CBC, PTT, ESR, CPK 1, CKMB 1, TROP 1, ST OCC BLD ####Main Lab - [place] [address] Urine, erythrocytes in sediment by area 4-10 Abnormal [facility] Comment on above: Performed By: #### C MP, PT, CBC, PTT, ESR, CPK 1, CKMB 1, TROP 1, ST OCC BLD ####Main Lab - [id number] [place] [address] Urine, glucose presence Negative Normal NEGATIVE [facility] Comment on above: Performed By: #### C MP, PT, CBC, PTT, ESR, CPK 1, CKMB 1, TROP 1, ST OCC BLD ####Main Lab - [id number] [place] [address] Urine, ketones presence TRACE Abnormal NEGATIVE [facility] Comment on above: Performed By: #### C MP, PT, CBC, PTT, ESR, CPK 1, CKMB 1, TROP 1, ST OCC BLD ####Main Lab - [id number] [place] [address] Urine, leukocyte esterase presence LARGE Abnormal NEGATIVE [facility] Comment on above: Performed By: #### C MP, PT, CBC, PTT, ESR, CPK 1, CKMB 1, TROP 1, ST OCC BLD ####Main Lab - [id number] [place] [address] Urine, leukocytes in sedmiment 21-50 Abnormal [facility] Comment on above: Result Comment: Unle ss otherwise noted, urine microscopic evaluation isnormal. Performed By: #### C MP, PT, CBC, PTT, ESR, CPK 1, CKMB 1, TROP 1, ST OCC BLD ####Main Lab - [id number] [place] [address] Urine, pH 5.0 [pH] Normal 5.0-8.0 [facility] Comment on above: Performed By: #### C MP, PT, CBC, PTT, ESR, CPK 1, CKMB 1, TROP 1, ST OCC BLD ####Main Lab - [id number] [place] [address] Urine, specific gravity 1.025 SP.GR. Normal <1.029 [facility] Comment on above: Performed By: #### C MP, PT, CBC, PTT, ESR, CPK 1, CKMB 1, TROP 1, ST OCC BLD ####Main Lab - [id number] [place], [place] [address] UROBILINOGEN,URINE 2.0 mg/dL Normal <2 mg/dL [facility] Comment on above: Performed By: #### C MP, PT, CBC, PTT, ESR, CPK 1, CKMB 1, TROP 1, ST OCC BLD ####Main Lab - [id number] [place], [place] [address] XR PORTABLE CHEST (1VIEW)on 08-14-2017 XR PORTABLE CHEST (1VIEW) [facility] [address] [place] [address] [id number] Diagnostic Imaging Report : [id number] Signed Name: BLAS LUJAN MRUN: [id number] : 1960 Loc: ED Age / Sex: 57 / F ADM Status: REG ER ADM Date: 08/14/17 Room/Bed: Ordering Physician: Dann Youngblood MD Procedure: XR PORTABLE CHEST (1VIEW) Order Number(s): [id number] Ordered Date: 08/14/17 Ordered Time: 1401 EXAMINATION: SINGLE VIEW OF THE CHEST 08/14/2017 3:05 pm COMPARISON: 05/2012 HISTORY: shortness of breath FINDINGS: Cardiac silhouette is mildly prominent. There are no pleural effusions. There is mild central congestion. Several monitoring leads noted. IMPRESSION: Findings suggest mild CHF. Dictated By: Min Lynn MD Dictated Date/Time: 08/14/17 1528 Signed By: Min Lynn MD Signed Date/Time: 08/14/17 1533 Transcribed Date/Time: 08/14/17 1529 Normal [facility] MRI LUMBAR SPINE W/WO CONTRA STon 07-11-2017 MRI LUMBAR SPINE W/WO CONTRAST [facility] [address] [place] [id number] Diagnostic Imaging Report : [id number] Signed Name: BLAS LUJAN MRUN: [id number] : 1960 Loc: MRI Age / Sex: 57 / F ADM Status: REG CLI ADM Date: 07/11/17 Room/Bed: Ordering Physician: Carmen Ford MD Procedure: MRI LUMBAR SPINE W/WO CONTRAST Order Number(s): [id number] Ordered Date: 07/11/17 Ordered Time: 1248 EXAMINATION: MRI OF THE LUMBAR SPINE WITHOUT AND WITH CONTRAST 07/11/2017 3:04 pm TECHNIQUE: Multiplanar multisequence MRI of the lumbar spine was performed without and with the administration of intravenous contrast. COMPARISON: 03/22/2017 HISTORY: CHRONIC THORACIC BACK PAIN,BACK PAIN Chronic mid back pain FINDINGS: BONES/ALIGNMENT: There is anterior listhesis L5 on S1 measuring 1.2 cm similar to prior exam. Severe disc space narrowing L5-S1. There is also marked disc space narrowing T11-12 with endplate degenerative signal. SPINAL CORD: The conus terminates normally. SOFT TISSUES: No abnormal enhancement is seen of the lumbar spine. No paraspinal mass identified. T11-12: Small disc bulge. No neural foraminal narrowing. Mild central canal stenosis. L1-L2: There is no significant disc protrusion, spinal canal stenosis or neural foraminal narrowing. L2-L3: There is minimal disc bulge but no disc protrusion, spinal canal stenosis or neural foraminal narrowing. L3-L4: There is minimal disc bulge but no significant disc protrusion, spinal canal stenosis or neural foraminal narrowing. L4-L5: There is small disc bulge with mild to moderate left neural foraminal narrowing and mild right neural foraminal narrowing. L5-S1: Diffuse displacement this mature related to anterior listhesis is noted with [id number] right neural foraminal narrowing no significant left neural foraminal narrowing. IMPRESSION: Abnormal signal at the T11-12 level with associated enhancement felt to represent type 1 degenerative endplate signal. This is better defined than previously noted. Mild loss of height T11 unchanged. Anterior listhesis L5 on S1 measures 1.2 cm and is unchanged. Severe degenerative disc change T11-12 and L5-S1 with mild multilevel degenerative changes at other levels. Dictated By: Min Lynn MD Dictated Date/Time: 07/11/17 1550 Signed By: Min Lynn MD Signed Date/Time: 07/11/17 1627 Transcribed Date/Time: 07/11/17 1622 Normal [facility] MRI THORACIC SPINE W/WO CONo n 07-11-2017 MRI THORACIC SPINE W/WO CON [facility] Diagnostic Imaging Services [address] [place], [place] [id number] Diagnostic Imaging Report : [id number] Signed Name: BLAS LUJAN MRUN: [id number] : 1960 Loc: MRI Age / Sex: 57 / F ADM Status: REG CLI ADM Date: 07/11/17 Room/Bed: Ordering Physician: Carmen Ford MD Procedure: MRI THORACIC SPINE W/WO CON Order Number(s): [id number] Ordered Date: 07/11/17 Ordered Time: 1248 EXAMINATION: MRI OF THE THORACIC SPINE WITHOUT AND WITH CONTRAST 07/11/2017 3:03 pm TECHNIQUE: Multiplanar multisequence MRI of the thoracic spine was performed without and with the administration of intravenous contrast. COMPARISON: None HISTORY: CHRONIC THORACIC BACK PAIN,BACK PAIN FINDINGS: BONES/ALIGNMENT: There is normal alignment of the spine. There is mild loss of height T11. Degenerative disc space narrowing with endplate high T2 and low T1 signal with associated enhancement felt represent type 1 degenerative changes also noted. Otherwise vertebral heights and alignment within normal limits. There are few small areas of disc bulge but no significant neural foraminal narrowing or central canal stenosis. SPINAL CORD: No abnormal cord signal is seen. SOFT TISSUES: No abnormal enhancement of the thoracic spine. No paraspinal mass identified. DEGENERATIVE CHANGES: There is severe degenerative changes seen C5-6 C6-7 partially visualized IMPRESSION: Persistent endplate degenerative changes T11-12. Mild loss of height T11. Marked degenerative disc changes mid to lower cervical spine. Dictated By: Min Lynn MD Dictated Date/Time: 07/11/17 1623 Signed By: Min Lynn MD Signed Date/Time: 07/11/17 1630 Transcribed Date/Time: 07/11/17 162 Normal [facility] HEMOGLOBIN AND HEMATOCRITon 07-08-2017 Hematocrit (HCT) 26.4 % Low 34.8-45.0 [facility] Comment on above: Performed By: #### C MP, PT, CBC, PTT, ESR, CPK 1, CKMB 1, TROP 1, ST OCC BLD ####Main Lab - [id number] [place] [id number] Hemoglobin mass conc (Bld) 7.8 g/dL Low 11.6-14.9 [facility] Comment on above: Performed By: #### C MP, PT, CBC, PTT, ESR, CPK 1, CKMB 1, TROP 1, ST OCC BLD ####Main Lab - [id number] [place] [address] TYPE AND GKGIA-SDPK-HGil Erythrocytes (RBC) TRANSFUSED 07/08/17 1317 Normal [facility] Comment on above: Performed By: #### C MP, PT, CBC, PTT, ESR, CPK 1, CKMB 1, TROP 1, ST OCC BLD ####Main Lab - [id number] [place] [address] TYPE AND SCREENon 07-08-2017 ANTIBODY SCREEN Negative Normal [facility] Comment on above: Order Comment: @Resu lts at Enter/Edit Orders as of 07/08/17 0941 ...@Test View Group: MOST RECENT HGB HCT RESULTS@ LABORATORY@Date Time Test Result Flag Normal Range@07/08/1740 HGB PENDING RECEIPT 11.6-14.9 g/dL@07/08/17939 HCT PENDING RECEIPT 34.8-45.0 %@@ Performed By: #### C MP, PT, CBC, PTT, ESR, CPK 1, CKMB 1, TROP 1, ST OCC BLD ####Main Lab - [id number] [place] [id number] BLOOD TYPE Positive Normal [facility] Comment on above: Order Comment: @Resu lts at Enter/Edit Orders as of 07/08/1741 ...@Test View Group: MOST RECENT HGB HCT RESULTS@ LABORATORY@Date Time Test Result Flag Normal Range@07/08/17 0940 HGB PENDING RECEIPT 11.6-14.9 g/dL@07/08/17 0940 HCT PENDING RECEIPT 34.8-45.0 %@@ Performed By: #### C MP, PT, CBC, PTT, ESR, CPK 1, CKMB 1, TROP 1, ST OCC BLD ####Main Lab - [id number] [place], [place] [address] XR CHEST, PA/LATERALon 06-09 XR CHEST, PA/LATERAL [facility] agnostic Imaging Services [address] [place] [address] Diagnostic Imaging Report : [id number] Signed Name: BLAS LUJAN MRUN: [id number] : 1960 Loc: RAD Age / Sex: 57 / F ADM Status: REG CLI ADM Date: 06/09/17 Room/Bed: Ordering Physician: Liliana DELACRUZ, Carmen Padgett Procedure: XR CHEST, PA/LATERAL Order Number(s): [id number] Ordered Date: 06/09/17 Ordered Time: 1419 # OF VIEWS: PA and lateral. REASON FOR EXAM: RIB PAIN COMPARISON: PA and lateral 04/14/2017. FINDINGS: Heart size is satisfactory. Hilar regions are within normal limits. Minimal parenchymal scar or subsegmental atelectatic streaking in the lingula. No no organized gross infiltrate or consolidation. No pleural effusion or pneumothorax. The bones appear intact. Ribs appear grossly intact as seen. IMPRESSION: Minimal parenchymal strandy scar or subsegmental atelectasis in left lower lung field/lingula. Bones appear grossly intact. Dedicated rib series if continued symptomatology referable to the ribs. Dictated By: Errol Vigil DO Dictated Date/Time: 06/09/17 1448 Signed By: Peyman Vigil DO Signed Date/Time: 06/09/17 1455 Transcribed Date/Time: 06/09/17 1451 Normal [facility] PERSONAL HISTORY AND PHYSICA Negro 05-17-2017 PERSONAL HISTORY AND PHYSICAL [address] [place] [address] PERSONAL HISTORY AND PHYSICAL : [id number] Signed Name: BLAS LUJAN MRUN: [id number] : 1960 Loc: ENDO Age / Sex: 57/ F Adm Status: PRE SDC Adm Date:05/17/17 Room/Bed: DATE: 05/17/2017 CHIEF COMPLAINT: Acute blood loss anemia and GI bleed. HISTORY OF PRESENT ILLNESS: Blas is a 57-year-old female who sees Dr. Ford. She was recently hospitalized 1 month ago and actually had to receive a blood transfusion. She denies seeing any blood or black-looking stool. She does have a history of having esophagitis as well as ulcers. She states that she last had a colonoscopy approximately a year and a half ago by Dr. Lerner where she was found to have colitis. The patient denies having any current abdominal pain. She does have some weight loss. No family history of colon or rectal cancer. PAST MEDICAL HISTORY: History of ulcers, back pain, gout and shoulder arthritis. PAST SURGICAL HISTORY: Back surgery, elbow surgery. ALLERGIES: CERTAIN ANTIBIOTICS, TRAMADOL AND IBUPROFEN. MEDICATIONS: Reviewed. See MedRec for full list. FAMILY HISTORY: Negative for colon or rectal cancer. Positive for diabetes. Negative for heart disease. SOCIAL HISTORY: The patient is single, smokes currently not interested in quitting. REVIEW OF SYSTEMS: Twelve systems reviewed. All deemed to be negative except for HPI. PHYSICAL EXAMINATION: VITAL SIGNS: Stable, afebrile. GENERAL: Alert and oriented x3, in no acute distress. HEENT: Unremarkable. HEART: Regular rate and rhythm. LUNGS: Normal respiratory effort. ABDOMEN: Soft, nontender, nondistended. No guarding, rebound or rigidity. No hepatosplenomegaly or hernias noted to be present. SKIN: Warm and dry to touch. NEURO: Cranial nerves II-XII grossly intact. EXTREMITIES: No clubbing, cyanosis or edema. ASSESSMENT: 1. GI (gastrointestinal) bleed. 2. Acute blood loss anemia. PLAN: We will plan to proceed with a repeat upper and lower endoscopy on 05/25/2017 at 1:00 PM. EXT JOB#: [id number] Dictated By: Giuseppe Jama DO 05/18/17 0714 05/18/17 0714 Dictated Date/Time: 05/17/17 1002 Transcribed Date/Time: 05/17/17 1021 Normal [facility] CBCon 04-14-2017 BANDS 1.0 % Normal 0.0 - 11.0 [facility] Comment on above: Performed By: #### 2 [id number] ####[facility] [address] [place] [address] Other Comment: COMPL ETE BLOOD COUNT Eosinophils/100 leukocytes 27.0 % High 0.0 - 8.0 [facility] Comment on above: Result Comment: {CD] Performed By: #### 2 [id number] ####[facility] [address] [place] [address] Other Comment: COMPL ETE BLOOD COUNT Erythrocyte distribution width Auto Ratio (RBC) 19.5 % High 11.5 - 15.5 [facility] Comment on above: Performed By: #### 2 [id number] ####[facility] [address] [place] [address] Other Comment: COMPL ETE BLOOD COUNT Erythrocyte morphology SEE BELOW Normal [facility] Comment on above: Performed By: #### 2 [id number] ####[facility] [address] [place] [address] Other Comment: COMPL ETE BLOOD COUNT Erythrocytes (RBC) 3.67 X106 Low 4.20 - 5.40 [facility] Comment on above: Performed By: #### 2 [id number] ####[facility] [address] [place] [address] Other Comment: COMPL ETE BLOOD COUNT Hematocrit (HCT) 27.6 % Low 37.0 - 47.0 [facility] Comment on above: Performed By: #### 2 [id number] ####[facility] [address] [place] [address] Other Comment: COMPL ETE BLOOD COUNT Hemoglobin mass conc (Bld) 8.6 g/dL Low 12.0 - 16.0 [facility] Comment on above: Performed By: #### 2 [id number] ####[facility] [address] [place] [address] Other Comment: COMPL ETE BLOOD COUNT Lymphocytes/100 leukocytes 22.0 % Normal 20.0 - 46.0 [facility] Comment on above: Performed By: #### 2 300170 ####[facility] [address] [place] [address] Other Comment: COMPL ETE BLOOD COUNT MANUAL DIFF SEE BELOW Normal [facility] Comment on above: Performed By: #### 2 [id number] ####[facility] [address] [place] [address] Other Comment: COMPL ETE BLOOD COUNT MCH 23.4 pg Low 27.0 - 31.0 [facility] Comment on above: Performed By: #### 2 [id number] ####[facility] [address] [place] [address] Other Comment: COMPL ETE BLOOD COUNT MCHC mass conc (RBC) 31.2 g/dL Low 32.0 - 36.0 [facility] Comment on above: Performed By: #### 2 363234 ####[facility] [address] [place] [address] Other Comment: COMPL ETE BLOOD COUNT MCV 75.0 fL Low 81.0 - 99.0 [facility] Comment on above: Performed By: #### 2 093075 ####[facility] [address] [place] [address] Other Comment: COMPL ETE BLOOD COUNT MICRO 1+ Normal [facility] Comment on above: Performed By: #### 2 [id number] ####[facility] [address] [place] [address] Other Comment: COMPL ETE BLOOD COUNT MONOS 3.0 % Normal 0.0 - 12.0 [facility] Comment on above: Performed By: #### 2 [id number] ####[facility] [address] [place] [address] Other Comment: COMPL ETE BLOOD COUNT Neutrophils/100 leukocytes 47.0 % Normal 42.0 - 66.0 [facility] Comment on above: Performed By: #### 2 [id number] ####[facility] [address] [place] [address] Other Comment: COMPL ETE BLOOD COUNT Platelet mean volume (PMV) 7.5 fL Normal 7.4 - 10.4 [facility] Comment on above: Performed By: #### 2 [id number] ####[facility] [address] [place] [address] Other Comment: COMPL ETE BLOOD COUNT PLTS 512 X103 High 130 - 400 [facility] Comment on above: Performed By: #### 2 743113 ####[facility] [address] [place] [address] Other Comment: COMPL ETE BLOOD COUNT WBC (Leukocytes) 11.7 X103 High 4.8 - 10.8 [facility] Comment on above: Performed By: #### 2 385904 ####[facility] [address] [place] [address] Other Comment: COMPL ETE BLOOD COUNT CRPon 04-14-2017 C reactive protein (CRP) 1.80 MG/DL High 0.01 - 1.00 [facility] Comment on above: Performed By: #### 2 [id number] ####[facility] [address] [place] [address] SED RATE WESTERGREENon 04-14 SED RATE 60 mm/hr High 1 - 20 [facility] Comment on above: Result Comment: WEST ERGREEN ESR (SED RATE) For patients over 40 use the following formulas to calculate maximun ESR. Females = \UNDo\age in years + 10\UNDx\ 2 Males = \UNDo\age in years\UNDx\ 2 Performed By: #### 2 [id number] ####[facility] [address] [place] [address] XR CHEST, PA/LATERALon 04-14 XR CHEST, PA/LATERAL [facility] agnostic Imaging Services [address] [place] [address] Diagnostic Imaging Report : [id number] Signed Name: BLAS LUJAN MRUN: [id number] : 1960 Loc: RAD Age / Sex: 57 / F ADM Status: REG CLI ADM Date: 04/14/17 Room/Bed: Ordering Physician: Liliana DELACRUZ, Carmen Padgett Procedure: XR CHEST, PA/LATERAL Order Number(s): [id number] Ordered Date: 04/14/17 Ordered Time: 1330 # OF VIEWS: 2 PA views and a lateral exposure. REASON FOR EXAM: COUGH COMPARISON: Chest PA and lateral 09/06/2016. CTA chest 02/04/2017. FINDINGS: Heart size is satisfactory. Mild aortic tortuosity is again noted. There is some increased strandy prominence in the hilar and infrahilar areas which can reflect peribronchial thickening with minimal accentuation of interstitium. No focal consolidation or pleural effusion. No pneumothorax. The bones are intact. IMPRESSION: Slight increased central stranding can reflect a degree of peribronchial thickening and minimal accentuation of interstitium. No organized focal infiltrate. Similar mild aortic tortuosity. Heart size is satisfactory. Dictated By: Errol Vigil DO Dictated Date/Time: 04/14/17 1404 Signed By: Peyman Vigil DO Signed Date/Time: 04/14/17 1410 Transcribed Date/Time: 04/14/17 1406 Normal [facility] DISCHARGE SUMMARYon 03-31-20 DISCHARGE SUMMARY [address] [place] [address] DISCHARGE SUMMARY : [id number] [id number]: [id number] : 1960 Loc: 3S Age / Sex: 56/ F Adm Status: DIS IN Adm Date:03/24/17 Room/Bed: [facility] DATE OF ADMISSION: 03/24/2017 DATE OF DISCHARGE: 03/31/2017 DISCHARGE DIAGNOSES: Include 1. Peptic ulcer disease. 2. T11 vertebral body acute compression fracture. 3. Chronic back pain. 4. Upper gastrointestinal bleed. 5. Gout. 6. Anxiety. 7. Depression. 8. Deconditioning. HOSPITAL COURSE: This patient presented to my office with worsening back pain, obtained a MRI and the MRI was concerning for osteomyelitis. I instructed the patient to come back in. I originally instructed her to come to the ER, but she came back into the office and I ordered inflammatory markers as well as CBC. It was found that her inflammatory markers were elevated and that her hemoglobin was 6.6, and based on these 2 findings, we recommended that the patient come into the emergency room, and she followed through on that. It was found on EGD that she had a large peptic ulcer and Carafate and PPI were started. She also was transfused 2 units of blood and her hemoglobin went from 6 to 9.1. Regarding her back pain, we spoke with Dr. Ross and at first the thought was to get a biopsy with IR, but IR called me back and wanted to proceed with a bone scan and a tagged WBC scan first, because on their review of the MRI it was questionable whether osteomyelitis was indeed present, and since she did not present in sepsis, we did not want to proceed with a biopsy and have her experience the risks of biopsy if it was not needed. So therefore a bone scan was done that was suggestive of a fracture, and the white blood cell scan that was done showed no gross abnormal activity defined within bony structures. So based on those findings, I spoke with both Dr. Ross and Radiology. Dr. Ross was okay with releasing the patient without antibiotics and we made a referral for the office, so she does have a followup with him. Additionally, I talked to Radiology today and they recommended a followup MRI in 8 weeks, so I made a note to do that. I did give the patient some pain medications, oxycodone 5 mg, 30, until she gets in with Pain Management based on these findings. Additionally, she will be set up for home health since she has been deconditioned from the recent turn of events. I also spoke with [facility] because there was some concern about a possible unhealthy relationship regarding this patient, but she has no admitted to that and has not been able to intervene in that setting. OBJECTIVE VITAL SIGNS ON DISCHARGE: Temperature is 98, pulse is 88, respirations 16, blood pressure is 138/85, and she is 98% on room air. GENERAL: She is alert and oriented, in no acute distress, answering questions appropriately. NECK: Supple. There is no JVD. LUNGS: Clear to auscultation bilaterally. HEART: Regular rate and rhythm. She has a systolic murmur. ABDOMEN: Soft and nontender. EXTREMITIES: There is no edema. DISPOSITION: The patient will be discharged home but getting set up for some home health and PT assistance. Additionally, the patient will follow up with Dr. Ross next week and with Dr. Ford on April 08. Will note to get a MRI in 8 weeks as recommended by Radiology, and will also monitor her anemia and peptic ulcer upon followup. EXT JOB#: [id number] Dictated By: Carmen Ford MD 04/13/17 1744 04/13/17 1744 Dictated Date/Time: 03/31/17 1802 Transcribed Date/Time: 04/01/[address] [facility] [place] 03-30-2017 [place] CERETE LEUKOC[facility]TE [facility] Diagnostic Imaging Services [address] [place] [address] Diagnostic Imaging Report : Signed Name: LEBLAS J MRUN: [id number] : 1960 Loc: 3S Age / Sex: 56 / F ADM Status: ADM IN ADM Date: 03/24/17 Room/Bed: [facility] Ordering Physician: Carmen Ford MD Procedure: [place] CERETEC LEUKOCYTE [facility] Order Number(s): [id number] Ordered Date: 03/29/17 Ordered Time: 0800 REASON FOR EXAM: possible osteomyelitis of spine COMPARISON: Three-phase bone scan 03/25/2017. MRI lumbar 7257. CTA chest 02/04/2017. TECHNIQUE: Post IV 25 mCi is Ceretec labeled white blood cells. The multi position spine images and multiplanar SPECT imaging. FINDINGS: The expected activity in the liver and spleen is noted. There appears to be normal low level uptake within the bony structures of the visualized axial and appendicular skeleton. No localized focal accumulation within the thoracolumbar spine as seen. IMPRESSION: No grossly abnormal activity is defined within the bony structures. Dictated By: Errol Vigil DO Dictated Date/Time: 03/30/17 1140 Signed By: Peyman Vigil DO Signed Date/Time: 03/30/17 1149 Transcribed Date/Time: 03/30/17 1145 [facility] OT IP DISCHARGEon 03-30-2017 OT IP DISCHARGE [address] [place] [address] OT IP DISCHARGE : Signed Name: LEBLAS J MRUN: [id number] : 1960 Loc: 3S Age / Sex: 56/ F Adm Status: ADM IN Adm Date:03/24/17 Room/Bed: 312-01 OCCUPATIONAL THERAPY INPATIENT DISCHARGE SUMMARY Date of Discharge: 03/29/17 Diagnosis: anemia, GI bleed, osteomyelitis T-spine Number of Treatment Sessions: evaluation and 2 treatments Subjective: Pt lives alone in a 1 bedroom apartment with 1 step to enter. Pt's significant other lives next door in her apartment. Pt IND with ambulating without use of an AD, but reports holding onto furniture while ambulating inside her home. Pt noting significant other does have straight cane available to use if needed. Pt with tub shower with seat. Pt reporting IND with bathing and dressing tasks. She states significant other has been assisting with cooking and cleaning tasks. Pt does not drive. Current Functional Status/Progress Toward Goals: 1. Pt will participate in therapeutic exercises for bilateral upper extremity strengthening for at least 10 mins to improve upper body endurance. Met with 10 min of tolerance within pain range and written/pictorial instructions. 2. Pt will complete in room mobility into the bathroom to perform grooming routine and UB ADL's while standing at the sink provided SBAx1. Met at independent level. 3. Pt will complete all functional transfers provided supervision assistance with good hand placement and safety by d/c. Met at independent level. Assessment: Met 3/3 goals. After collaboration with the OTR, it has been determined that the patient has met all goals set at evaluation and is ready for discharge from skilled OT services at this time. In addition, after collaboration, the OTR has set the functional limitations (G-codes) reflected below to best represent the patient's performance at the time of d/c. Status of Discharge: OSHEA and OTR have collaborated and are in agreement with further recommendations above. Thank you for this referral. Impairment code and severity modifier chosen (Medicare Medicare HMOs): GOAL:G8988 CI DISCHARGE: G8988 CI Justification: Justification based on pt's current deficits in self care routine due to generalized weakness, decreased endurance and impaired dynamic standing balance. Dictated By: William [id number] 03/30/17 0803 03/30/17 1857 Dictated Date/Time: 03/30/17 0756 Transcribed Date/Time: 03/30/17 075 Normal [facility] PROGRESS NOTEon 03-30-2017 PROGRESS NOTE [address] [facility] [place] [address] PROGRESS NOTE : [id number] Signed Name: BLAS LUJAN MRUN: [id number] : 1960 Loc: 3S Age / Sex: 56/ F Adm Status: DIS IN Adm Date:03/24/17 Room/Bed: 312[facility] SUBJECTIVE: The patient states that she had her nuclear scan yesterday. Still having some pain in her back as well as in her joints. Also complaining of some discomfort in her abdomen, but otherwise doing well. Doing well with physical therapy. I talked to [facility]. They said that she has not disclosed any violence in the home, however, there is concern about her being able to handle antibiotics at home and also some concern about her deconditioning, so we have decided that we are going to proceed with home health or consider placement if she needs IV antibiotics. OBJECTIVE: VITAL SIGNS: TEMP 98.0, pulse 59, respirations 20, BP 101/55 and 99% on room air. GENERAL: She is alert and oriented in no acute distress. NECK: Supple. There is no JVD. LUNGS: Clear to auscultation bilaterally. HEART: Regular rate and rhythm with systolic murmur. ABDOMEN: Soft with mild epigastric tenderness. EXTREMITIES: There is no edema. LAB STUDIES: No new studies today. ASSESSMENT AND PLAN: 1. Back pain, concerning for possible osteomyelitis. She has history of chronic pain, has been referred to Pain Management, however, this seems to be worsening and then when she came into my office, MRI was ordered and based on that report, there was concern for osteomyelitis versus a fracture. The patient was not having any fevers or chills with this. Inflammatory markers were elevated and we proceeded with a bone scan that was concerning for fracture and we did a tagged WBC scan to see if there is any evidence of infection. The patient was evaluated by Dr. Ross. He is concerned about possible osteomyelitis at T11, pending the report of the tagged WBC scan, and may proceed with biopsy. 2. Anemia secondary to gastrointestinal bleed. EGD was done over the weekend. They found a large peptic ulcer that is being treated with Carafate and PPI. She has had 2 units of blood and her hemoglobin went from 6 to 9.1. 3. Gout. She had a recent admission for this, was sent to [facility], thought she had a septic joint, but it was found to be gout instead of that, placed on indomethacin and colchicine and, due to intolerance to those medications, she was started on allopurinol. 4. Hypertension. Her BP has been stable off medications and since she has had some complaints of dizziness and a fall at home, we stopped her BP medications. 5. Depression. The patient had side effects with Zoloft. Will talk to her some more about this before discharge. 6. Deconditioning. I spoke with [facility] and will plan on home health for physical therapy when she goes home. If she does need IV antibiotics, may place her and then continue with physical therapy there. 7. Prophylaxis. The patient is on mechanical prophylaxis due to GI bleed. EXT JOB#: [id number] Dictated By: Liliana DELACRUZ, Carmen Padgett 04/13/17 1743 04/13/17 1743 Dictated Date/Time: 03/30/17 0850 Transcribed Date/Time: 03/30/17 0950 [facility] PROGRESS NOTEon 03-29-2017 PROGRESS NOTE [address] [place] [address] PROGRESS NOTE : [phone] Signed Name: BLAS LUJAN MRUN: [id number] : 1960 Loc: 3S Age / Sex: 56/ F Adm Status: ADM IN Adm Date:03/24/17 Room/Bed: [facility] DATE OF ADMISSION: 03/24/2017. TODAY'S DATE: 03/29/2017. SUBJECTIVE: The patient states that she still has some discomfort in her back and joints, but the pain medications have helped some with that. She has been working Physical Therapy. She has just some mild discomfort in her abdomen still. She noted that they did take some blood this morning, for her tagged WBC scan, that they are sending to [place], so she will have that scan today. No other complaints this morning. She was actually getting up on her own and seemed to be getting around a little bit better, so I think it would be a good idea to continue Physical Therapy. OBJECTIVE VITAL SIGNS: TEMP 99, P 80, R 16, BP 111/70. She is 99% on room air. GENERAL: She is alert and oriented. No acute distress. Answering questions appropriately. Seems to be, as said, a little more alert this morning. NECK: Supple. There is no JVD. LUNGS: Clear to auscultation, bilaterally. HEART: RRR. Systolic murmur. ABDOMEN: Soft, mild epigastric tenderness. EXTREMITIES: There is no edema. LAB STUDIES: There are no new LAB studies today. Last Hgb was 9.1 on 03/27/2017. ASSESSMENT AND PLAN 1. Back pain, concern for possible osteomyelitis. The patient has had chronic pain, however, this has been worsening. She came into my office. We ordered MRI and there was some concern for possible osteomyelitis versus a fracture. She is not having any neurologic deficits or fevers. Her inflammatory markers are elevated and Radiology recommended a bone scan that seemed to be consistent with a fracture, however, we are doing a tagged WBC scan today to look in to see if there is any kind of infection on that scan, but it sounds like it is more likely a fracture. 2. Anemia, secondary to gastrointestinal bleed. EGD was done over the weekend and that found a large peptic ulcer. The patient is currently on Carafate and a PPI, and she was transfused 2 units of blood. Her Hgb was 9 in January, it was 6 on admission, and it is now 9.1. We will continue to monitor this as an outpatient when she follows up. 3. Gout. The patient had a recent admission for this. She was sent to [facility] for concern for septic joint, but on evaluation, was found to be gout. She was on indomethacin and colchicine. She had trouble tolerating those medications, had been started on allopurinol. 4. Hypertension. The patient had history of this when I first saw her, however, she has done fine without BP medications and, in fact, she had some dizziness and had a fall at home. So I will keep her off of BP medications. 5. Depression. Tried to start Zoloft and the patient had side effects with this. So I will talk to her some more. I am concerned about the relationship with her significant other and consulted QCT team because it was noticed by office staff and me that there was some disrespect there. 6. Prophylaxis. The patient is on mechanical prophylaxis, due to GI bleed. EXT JOB#: [id number] Dictated By: Carmen Ford MD 03/29/170 03/29/171899 Dictated Date/Time: 03/29/17 0836 Transcribed Date/Time: 03/29/17 0929 [facility] PT Inpatient Discharge Genny cadet 03-29-2017 PT Inpatient Discharge Summary [address] [place] [address] PT Inpatient Discharge Summary : [id number] Signed Name: BLAS LUJAN MRUN: [id number] : 1960 Loc: 3S Age / Sex: 56/ F Adm Status: ADM IN Adm Date:03/24/17 Room/Bed: [facility] Physical Therapy Inpatient Discharge Summary Discharge Date: 03/29/2017 Number of Treatment Sessions: Patient was seen for initial evaluation on 03/25/2017 followed by 4 additional treatment sessions. Treatment Sessions Included: Bed mobility training, transfer training, gait training, stair training and therapeutic exercise bilateral lower extremities to increase strength and endurance for improved functional mobility. Current Functional Status: Bed mobility: Independent. Supine to sit: Independent. Sit to supine: Independent. Sit to stand: Independent. Stand to sit: Independent. Ambulation: Patient ambulates 300 feet without an assistive device with supervision. Patient continues to internally rotate bilateral lower extremities, left greater than right. Patient has no loss of balance or unsteady gait noted. Patient ambulates at a steady pace. Stairs: Patient stair climbs 5 steps without the use of the handrails with standby assist. Patient ascends and descends the steps with a step over step gait pattern. Patient has no loss of balance noted. Therapeutic Exercise: Patient completes 20 repetitions of strengthening exercises bilateral lower extremities in supine position to increase strength and endurance for improved functional mobility. Patient completes ankle pumps, quad sets, heel slides, short arc quads, hip abduction/adduction and straight leg raises. Patient requires occasional verbal cues to perform exercises at a slower pace. Patient demonstrates increased strength and endurance of bilateral lower extremities as patient demonstrates improved functional mobility with increased gait components and decreased assist. Balance: Standing dynamic balance: Good minus. Endurance: Endurance for ambulation: Good. Number of Goals Met: Patient has met all 6 goals of physical therapy. Discharge Disposition: Patient has met goals of physical therapy. Patient is safe to continue ambulating with nursing. Patient is currently discharged from physical therapy. Patient's RN, Andreina Larose, as well as the patient are informed and verbalize understanding. Impairment code and severity modifier chosen (All patients with Medicare Medicare HMOs): GOAL: G8979 CJ 20-39% impaired DISCHARGE: G8980 CI 1-19% impaired Justification: Patient has met goals of physical therapy demonstrating improved functional mobility with decreased assist and improved safety. Patient is safe to continue ambulating with nursing. Thank you for this referral. Please feel free to call with any questions or concerns. Dictated By: Feliberto KIRAN [id number] 03/29/17 174 Dictated Date/Time: 03/29/171711 Transcribed Date/Time: 03/29/171711 [facility] REPORT OF CONSULTATIONon REPORT OF CONSULTATION [address] [place] [address] REPORT OF CONSULTATION : [id number] Signed Name: BLAS LUJAN MRUN: [id number] : 1960 Loc: 3S Age / Sex: 56/ F Adm Status: DIS IN Adm Date:03/24/17 Room/Bed: [facility] DATE: 03/29/2017 Patient was seen and examined, chart reviewed, and is a well-known patient to me. HISTORY OF PRESENT ILLNESS: This is a 56 YO female I had the pleasure of taking care of back in June of 2015 when she presented with a lumbar paraspinal abscess of unknown origin. This was in the lumbar region. She underwent surgery for evacuation and drainage of this on 05/27/2015, and this was found to be MSSA infection. The lesion was around the spinous process and lamina of L2-3 on the right side, 1-3 cm. It did not involve the disc space or bone or epidural space. She was then treated with IV antibiotics for at least 3 months and with some oral medication but during that time became allergic to the vancomycin and we had to finish it with Zyvox. She has been lost to followup and now returns to the emergency room with increasing back pain. She had an MRI done of the lumbar spine suggestive of possible osteomyelitis at T11, but she has also been found to be anemic and has had to have endoscopy. She is not really complaining of any leg pain. No bowel and bladder difficulty. We do not have any of the inflammatory markers that were said to be elevated. But she has been afebrile here, was found to have severe anemia from some gastritis. Nevertheless, the reason for the consult was because of questionable OSTEO at T11. I had recommended when she came to the emergency room to do Interventional Radiology do a core biopsy and culture of this to see what it is. It lends itself more to that than open surgery. This has not been carried out yet. PAST MEDICAL HISTORY: History of hypertension, some mild valvular heart disease, mild regurgitation, elevated cholesterol and depression. ALLERGIES: SHE DOES HAVE ALLERGY NOW TO VANCOMYCIN. REVIEW OF SYSTEMS: Negative. No chest pain. No shortness of breath. SOCIAL HISTORY: Does not drink or smoke, is unemployed. PHYSICAL EXAM: GENERAL: She is 5' 5; 151 LB. NEURO: She is awake, alert, fully oriented. Normal mental status. Normal cranial nerves. Normal strength, sensation, reflex of the upper extremities. EXAM OF HER BACK: She has a well-healed incision in the region of L2-3. A little bit of tenderness but paraspinal muscle spasm or redness. She has negative straight leg raising. Negative Lasegue's. There still is a little bit of diffuse weakness in the legs. Deep tendon reflexes are absent. She is able to get up, stand and walk. IMPRESSION: 1. Suspicious lesion at T11 for osteomyelitis with thoracolumbar pain. 2. Status post primary paraspinal muscle abscess at L2-3 in 2014. It turned out to be MSSA. Patient was treated for 3 months with antibiotics. RECOMMENDATIONS: For patient to undergo a core needle biopsy and culture of this lesion at T11 to exclude an osteomyelitis. I have explained this to the patient. She understands and agrees and is ready to proceed. EXT JOB#: [id number] Dictated By: Awais Ross MD 03/31/17183803/31/171838 Dictated Date/Time: 03/29/17 1434 Transcribed Date/Time: 03/29/17 1519 [facility] PROGRESS NOTEon 03-28-2017 PROGRESS NOTE [address] [facility], [place] [address] PROGRESS NOTE : [phone] Signed [id number] MRUN: [id number] : 1960 Loc: 3S Age / Sex: 56/ F Adm Status: ADM IN Adm Date:03/24/17 Room/Bed: [facility] DATE: 03/28/2017 SUBJECTIVE: The patient states she is still having some neck, back and joint pain. I did remind her she had pain medications p.r.n. ordered for [id number] pain but she is still complaining of pain. She does not know any other complaints. She did have an ulcer on her EGD and was started on PPI and Carafate. She does deny IV drug use just because I wanted to see what risk factors she might have in case she does have osteomyelitis, although the bone scan is looking more consistent with a fracture. She cannot get her nuclear scan until tomorrow. OBJECTIVE: VITAL SIGNS: Temperature is 98.3, pulse 76, respirations 18, blood pressure 114/76, 97% on room air. GENERAL: She is in no acute distress, alert and oriented, answering questions appropriately. NECK: Supple. There is no JVD. LUNGS: Clear to auscultation bilaterally. HEART: Regular rate and rhythm. She has a systolic murmur. ABDOMEN: Soft and nontender. EXTREMITIES: No edema. LAB STUDIES: CBC yesterday: White blood cell count was 10.6, hemoglobin 9.1, platelets are 550. H. pylori was negative. EGD showed a large gastric ulcer with gastritis and esophagitis. ASSESSMENT AND PLAN: 1. Back pain concerned for osteomyelitis. She has chronic pain and it is has been worsening and she came into my office. MRI was done that showed some concern for possible osteomyelitis versus a fracture. She is not having clinically signs of osteomyelitis. There are no neurological deficits or fevers; however her inflammatory markers are elevated and she was not in sepsis. I spoke with radiology. They recommended a bone scan so we proceeded with that. It looks more like a fracture. Have not started antibiotics yet and also we ordered a nuclear scan but it cannot be done until tomorrow, but it seems more likely to be a fracture rather than osteomyelitis. 2. Anemia secondary to gastrointestinal bleed. EGD was done and showed a large peptic ulcer. The patient was placed on Carafate and a proton pump inhibitor. She was transfused 2 units. Her hemoglobin at the end of January was 9. It was 6.6 on admission here; it is now 9.1 3. Gout. The patient had a recent admission for this. There was some concern of septic joint of her left shoulder but it was found to be gout. She was placed on indomethacin and was on colchicine and then was started on allopurinol because she felt like she was having side effects from the prior medications. 4. Hypertension. The patient had this diagnosis coming into my office; however, she was having some dizziness with her medications and her blood pressure was staying stable off medications so we will continue to hold medications for this. 5. Depression. I will talk to the patient more about this. I did try to attempt Zoloft with her awhile back at an office visit but she was not able to tolerate it. I also consulted QC team because I was concerned with her relationship with her significant other. 6. Prophylaxis. The patient is placed on mechanical prophylaxis due to gastrointestinal bleed. EXT JOB#: [id number] Dictated By: Carmen Ford MD 03/29/17185803/29/171858 Dictated Date/Time: 03/28/17 0830 Transcribed Date/Time: 03/28/17 1001 [facility] CBC WITH AUTO DIFFon 017 Basophils Auto #/vol (Bld) 0.1 10 3/uL Normal 0.0-0.2 [facility] Comment on above: Performed By: #### C REAT-EGFR, SEC CALL ####Main Lab - [id number] [place], [place] [address] Basophils/100 WBC Auto (Bld) 1.3 % High 0.0-1.0 [facility] Comment on above: Performed By: #### C REAT-EGFR, SEC CALL ####Main Lab - [id number] [place], [place] [address] Eosinophils 0.5 10 3/uL Normal 0.0-0.7 [facility] Comment on above: Performed By: #### C REAT-EGFR, SEC CALL ####Main Lab - [id number] [place], [place] [address] Eosinophils/100 leukocytes 4.2 % Normal 0.0-5.0 [facility] Comment on above: Performed By: #### C REAT-EGFR, SEC CALL ####Main Lab - [id number] [place] [address] Erythrocyte distribution width Auto Ratio (RBC) 16.7 % High 11.5-14.0 [facility] Comment on above: Performed By: #### C REAT-EGFR, SEC CALL ####Main Lab - [id number] [place] [address] Erythrocytes (RBC) 3.58 x10 6/uL Low 3.89-5.30 [facility] Comment on above: Performed By: #### C REAT-EGFR, SEC CALL ####Main Lab - [id number] [place] [address] Hematocrit (HCT) 28.6 % Low 34.8-45.0 [facility] Comment on above: Performed By: #### C REAT-EGFR, SEC CALL ####Main Lab - [id number] [place] [address] Hemoglobin mass conc (Bld) 9.1 g/dL Low 11.6-14.9 [facility] Comment on above: Performed By: #### C REAT-EGFR, SEC CALL ####Main Lab - [id number] [place] [address] Lymphocytes 1.7 10 3/uL Normal 1.0-3.5 [facility] Comment on above: Performed By: #### C REAT-EGFR, SEC CALL ####Main Lab - [id number] [place] [address] Lymphocytes/100 leukocytes 16.0 % Low 24.0-44.0 [facility] Comment on above: Performed By: #### C REAT-EGFR, SEC CALL ####Main Lab - [id number] [place] [address] MCH 25.4 pg Low 27.0-31.0 [facility] Comment on above: Performed By: #### C REAT-EGFR, SEC CALL ####Main Lab - [id number] [place] [address] MCHC mass conc (RBC) 31.7 g/dL Low 32.0-36.0 [facility] Comment on above: Performed By: #### C REAT-EGFR, SEC CALL ####Main Lab - [id number] [place], [place] [address] MCV 80.0 fL Normal 78.0-100.0 [facility] Comment on above: Performed By: #### C REAT-EGFR, SEC CALL ####Main Lab - [id number] [place], [place] [address] Monocytes 1.3 10 3/uL High 0.2-0.8 [facility] Comment on above: Performed By: #### C REAT-EGFR, SEC CALL ####Main Lab - [id number] [place], [place] [address] Monocytes/100 leukocytes 12.6 % High 1.7-9.3 [facility] Comment on above: Performed By: #### C REAT-EGFR, SEC CALL ####Main Lab - [id number] [place], [place] [address] Neutrophils 7.0 10 3/uL High 1.5-6.7 [facility] Comment on above: Performed By: #### C REAT-EGFR, SEC CALL ####Main Lab - [id number] [place], [place] [address] Platelet mean volume (PMV) 6.6 fL Normal 6.0-9.5 [facility] Comment on above: Performed By: #### C REAT-EGFR, SEC CALL ####Main Lab - [id number] [place], [place] [address] Platelets 550 10 3/uL High 150-450 [facility] Comment on above: Performed By: #### C REAT-EGFR, SEC CALL ####Main Lab - [id number] [place], [place] [address] Segmented Neutrophils/100 leukocytes 65.9 % Normal 36.0-66.0 [facility] Comment on above: Performed By: #### C REAT-EGFR, SEC CALL ####Main Lab - [id number] [place], [place] [address] WBC (Leukocytes) 10.6 10 3/uL High 4.0-10.5 [facility] Comment on above: Performed By: #### C REAT-EGFR, SEC CALL ####Main Lab - [id number] [address] [place], [place] [address] PROGRESS NOTEon 03-27-2017 PROGRESS NOTE [address], [place] [address] PROGRESS NOTE : [phone] Signed Name: BLAS LUJAN MRUN: [id number] : 1960 Loc: 3S Age / Sex: 56/ F Adm Status: ADM IN Adm Date:03/24/17 Room/Bed: [facility] DATE: 03/27/2017. SUBJECTIVE: The patient complains of back pain. She was found to have gastric ulcer on her EGD yesterday and is on PPI. She has been advanced to soft diet. Her Hgb today is up to 9.1. OBJECTIVE GENERAL: She is alert, oriented, not in distress. VITAL SIGNS: BP 138/89, HR 87, RR 19, TEMP 98.2, PULSE OX 94% on room air. HEENT: NC. CHEST: Clear. HEART: RRR. ABDOMEN: Soft, nontender. EXTREMITIES: No edema. SKIN: Warm and dry. LABS: Reviewed. ASSESSMENT 1. Acute blood loss anemia, secondary to gastric ulcer. She is status post blood transfusion with 1 unit of PRBC. H/H is stable. 2. Back pain. Bone scan findings are compatible with acute compression fracture. MRI of the spine tomorrow, recommended by Radiology. 3. Hypertension, stable. 4. Depression. 5. Gout. 6. Gastric ulcer and gastritis. Continue PPI, per Dr. Sheikh. DVT prophylaxis. EXT JOB#: [id number] Dictated By: Andres Mason MD 03/29/17 1555 03/29/17 1555 Dictated Date/Time: 03/27/17 2108 Transcribed Date/Time: 03/28/17 0820 Normal [facility] PROGRESS NOTE [address], [place] [address] PROGRESS NOTE : [id number] Signed Name: BLAS LUJAN MRUN: [id number] : 1960 Loc: 3S Age / Sex: 56/ F Adm Status: ADM IN Adm Date:03/24/17 Room/Bed: [facility] DATE: 03/27/2017. SUBJECTIVE: This is a 56-year-old female who underwent upper endoscopy for GI bleed, found to have a large gastric ulcer, with gastritis and esophagitis. Started her on Carafate and PPI medication. H pylori was negative. She does not have any complaints today. She said she never had an ulcer before and really does not have a lot of epigastric pain or nausea. She is complaining about the liquid diet, wants something better to eat. No melena noted. OBJECTIVE: Slightly pale female who looks much older than her stated age; that is her baseline from what I remember before. Hgb of 9.1 today. Platelets 550. White count 10.6. H pylori is negative, as noted. She is tolerating liquids. Abdomen is soft and nontender. IMPRESSION: Gastric ulcer. PLAN: She is on Carafate and Protonix. She will be continued as an outpatient for at least 6 weeks. I will see her in the office in followup to make sure she heals up. We will advance her diet. Really no other surgical change at this point in time. I suspect the majority of her issues, at this point, are going to be in her back. EXT JOB#: [id number] Dictated By: Chavez Sheikh MD 03/29/17 1726 03/29/17 1726 Dictated Date/Time: 03/27/17 1309 Transcribed Date/Time: 03/27/17 1337 Normal [facility] HELICOBACTER PYLORIon 2016 HELICOBACTER PYLORI Negative Normal NEGATIVE [facility] Comment on above: Result Comment: @Int ernal Pos/Neg controls reacted as detailed in procedure@literature. Performed By: #### C REAT-EGFR, SEC CALL ####Main Lab - [id number] [place], [place] [address] PROGRESS NOTEon 03-26-2017 PROGRESS NOTE [address], [place] [address] PROGRESS NOTE : [phone] Signed Name: BLAS LUJAN MRUN: [id number] : 1960 Loc: 3S Age / Sex: 56/ F Adm Status: ADM IN Adm Date:03/24/17 Room/Bed: [facility] DATE: 03/26/2017. SUBJECTIVE: The patient had upper GI endoscopy today and found to have gastritis and gastric ulcers. Mild esophagitis. She has no new complaints. That is apparently the cause of her GI bleed and anemia. She was transfused 1 unit of PRBC on 03/24/2017 for Hgb of 6, and Hgb improved to 7.8 yesterday. She is currently off antibiotics, pending workup for osteomyelitis. OBJECTIVE GENERAL: The patient is alert, not in acute distress. VITAL SIGNS: BP 105/58, HR 77, RR 20, TEMP 98.1, PULSE OX is 96% on room air. CHEST: Clear. HEART: RRR. ABDOMEN: Soft, nontender. EXTREMITIES: No edema. SKIN: Warm and dry. LABS: No new LABs today. ASSESSMENT AND PLAN 1. Back pain. She had bone scan done and the findings are compatible with acute compression fracture. MRI recommended. We cannot do that until Tuesday. 2. Acute blood loss anemia, secondary to gastrointestinal bleed. Status post blood transfusion with 1 unit. We will recheck H/H again tomorrow to see where we are. Transfusion as needed. 3. Hypertension. Stable. 4. Depression. 5. Gout. DVT prophylaxis. EXT JOB#: [id number] Dictated By: Andres Mason MD 03/29/17 1520 03/29/17 1520 Dictated Date/Time: 03/26/17 1719 Transcribed Date/Time: 03/26/17 7714 Normal [facility] REPORT OF OPERATIONon 2016 REPORT OF OPERATION [address] [place] [address] REPORT OF OPERATION : [id number] Signed Name: BLAS LUJAN MRUN: [id number] : 1960 Loc: 3S Age / Sex: 56/ F Adm Status: ADM IN Adm Date:03/24/17 Room/Bed: [facility] DATE: 03/26/2017. PREOPERATIVE DIAGNOSIS: Anemia with gastrointestinal bleed. POSTOPERATIVE DIAGNOSIS: Same, secondary to gastritis ulcers. PROCEDURE: Upper GI endoscopy. ANESTHESIA: IV topical, moderate conscious sedation, supervised by me, total time 10 minutes, 8 mg of Versed IV, 100 mcg of fentanyl IV. SURGEON: Chavez Sheikh MD. DIPLOMATIC INTERPRETER: None. HISTORY: This is a 56-year-old female, came in with Hgb of 6, transfused, heme positive stool. Now for endoscopy. FINDINGS: The patient had multiple gastritis ulcers in the antrum, but one very large one. It is not actively bleeding at the moment, but was indeed an active ulcer. We did not do any biopsies of it, in order to not precipitate any further bleeding, as this was a very typical in appearance ulceration. She also had some mild reflux esophagitis. PROCEDURE: The patient was brought to the endoscopy suite, placed in the decubitus position. IV anesthetic was administered. The oropharynx was topically anesthetized. Through the bite block, the gastroscope was passed through the oropharynx, through the esophagus, into the stomach, manipulated through the pylorus, into the duodenum. The third part of the duodenum was reached. The scope was slowly withdrawn with care taken to examine all mucosal surfaces. Operating Room Assistant photographs were obtained. As noted above, she had one large antral ulcer and several small ones. The pylorus, itself, was okay as well as the duodenal bulb. The body of the stomach showed some minimal inflammation. There was no fresh blood. The scope was retroflexed in the GE junction, straightened, and brought through this. The distal esophagus revealed some mild reflux esophagitis, as noted, but no evidence of any bleeding sites. The scope was further retracted. The proximal esophagus was normal. The scope was removed. The patient tolerated the procedure well. EXT JOB#: [id number] Dictated By: Chavez Sheikh MD 03/29/17 1726 03/29/17 172 Dictated Date/Time: 03/26/17 0850 Transcribed Date/Time: 03/26/17 0928 Normal [facility] URINE CULTUREon 03-26-2017 Urine culture, bacteria @03/24/17 1819: URINE CULT added. RFLXG = URINE CULT.@Source changed from IRICEL INS to CC by [id number].URINE CULTURE:Pending STREP AGALACTIAE (GRP B):Isolated URINE CULTURE: STRSEN Susceptibility testing of penicillins and other STRSEN2 betalactams approved by the FDA for treatment of Grps STRSEN3 A B strep, is not necessary for clinical purposes and STRSEN4 need not be done routinely, since as with vancomycin, STRSEN5 resistant strains have not been recognized. COLONY COUNT(URINE): 50,000 - 75,000 Normal [facility] Comment on above: Performed By: #### C REAT-EGFR, SEC CALL ####Main Lab - [id number] [place], [place] [address] BASIC METABOLIC PANELon 02-27 Anion gap 13 mmol/L Normal 9-18 [facility] Comment on above: Order Comment: @ COL L DATE was changed from 03/24/17 to 03/25/17@ by [id number]. Old specimen was 0727:[id number]. Performed By: #### C REAT-EGFR, SEC CALL ####Main Lab - [id number] [place], [place] [address] BUN (urea nitrogen) 11 mg/dL Normal 7-21 [facility] Comment on above: Order Comment: @ COL L DATE was changed from 03/24/17 to 03/25/17@ by [id number]. Old specimen was 0727:[id number]. Performed By: #### C REAT-EGFR, SEC CALL ####Main Lab - [id number] [place], [place] [address] BUN/Creatinine Ratio 19.6 Ratio Normal 5.0-42.0 [facility] Comment on above: Order Comment: @ COL L DATE was changed from 03/24/17 to 03/25/17@ by [id number]. Old specimen was 0727:[id number]. Performed By: #### C REAT-EGFR, SEC CALL ####Main Lab - [id number] [place], [place] [address] Calcium 9.2 mg/dL Normal 8.4-10.2 [facility] Comment on above: Order Comment: @ COL L DATE was changed from 03/24/17 to 03/25/17@ by [id number]. Old specimen was 0727:[id number]. Performed By: #### C REAT-EGFR, SEC CALL ####Main Lab - [id number] [place], [place] [address] Chloride 111 mmol/L High 98-107 [facility] Comment on above: Order Comment: @ COL L DATE was changed from 03/24/17 to 03/25/17@ by [id number]. Old specimen was 0727:[id number]. Result Comment: Inco nsisitent with previous results. Performed By: #### C REAT-EGFR, SEC CALL ####Main Lab - [id number] [place], [place] [address] CO2 22 mmol/L Normal 22-31 [facility] Comment on above: Order Comment: @ COL L DATE was changed from 03/24/17 to 03/25/17@ by [id number]. Old specimen was 0727:[id number]. Performed By: #### C REAT-EGFR, SEC CALL ####Main Lab - [id number] [place], [place] [address] Creatinine 0.56 mg/dL Low 0.80-1.30 [facility] Comment on above: Order Comment: @ COL L DATE was changed from 03/24/17 to 03/25/17@ by [id number]. Old specimen was 0727:[id number]. Performed By: #### C REAT-EGFR, SEC CALL ####Main Lab - [id number] [place], [place] [address] eGFR (non-black) mL/min/{1.73_m2} Normal [facility] Comment on above: Order Comment: @ COL L DATE was changed from 03/24/17 to 03/25/17@ by [id number]. Old specimen was 0727:[id number]. Performed By: #### C REAT-EGFR, SEC CALL ####Main Lab - [id number] [place], [place] [address] Glucose mass conc 89 mg/dL Normal 70-99 [facility] Comment on above: Order Comment: @ COL L DATE was changed from 03/24/17 to 03/25/17@ by [id number]. Old specimen was 0727:[id number]. Result Comment: The glucose range is based on recommendations from theAmerican Diabetes Association for fasting blood glucoserange. Performed By: #### C REAT-EGFR, SEC CALL ####Main Lab - [id number] [place], [place] [address] Potassium molar conc 3.8 mmol/L Normal 3.6-5.0 [facility] Comment on above: Order Comment: @ COL L DATE was changed from 03/24/17 to 03/25/17@ by [id number]. Old specimen was 0727:[id number]. Performed By: #### C REAT-EGFR, SEC CALL ####Main Lab - [id number] [place] [address] Sodium 142 mmol/L Normal 137-145 [facility] Comment on above: Order Comment: @ COL L DATE was changed from 03/24/17 to 03/25/17@ by [id number]. Old specimen was 0727:[id number]. Result Comment: Inco nsisitent with previous results. Performed By: #### C REAT-EGFR, SEC CALL ####Main Lab - [id number] [place] [address] Age 56 Years Normal [facility] Comment on above: Order Comment: @ COL L DATE was changed from 03/24/17 to 03/25/17@ by [id number]. Old specimen was 0727:[id number]. Performed By: #### C REAT-EGFR, SEC CALL ####Main Lab - [id number] [place] [address] CBC WITH AUTO DIFFon 017 Basophils Auto #/vol (Bld) 0.1 10 3/uL Normal 0.0-0.2 [facility] Comment on above: Order Comment: @ COL L DATE was changed from 03/24/17 to 03/25/17@ by [id number]. Old specimen was 0727:[id number]. Performed By: #### C REAT-EGFR, SEC CALL ####Main Lab - [id number] [place] [address] Basophils/100 WBC Auto (Bld) 1.3 % High 0.0-1.0 [facility] Comment on above: Order Comment: @ COL L DATE was changed from 03/24/17 to 03/25/17@ by [id number]. Old specimen was 0727:[id number]. Performed By: #### C REAT-EGFR, SEC CALL ####Main Lab - [id number] [place] [address] Eosinophils 0.8 10 3/uL High 0.0-0.7 [facility] Comment on above: Order Comment: @ COL L DATE was changed from 03/24/17 to 03/25/17@ by [id number]. Old specimen was 0727:[id number]. Performed By: #### C REAT-EGFR, SEC CALL ####Main Lab - [id number] [place], [place] [address] Eosinophils/100 leukocytes 7.9 % High 0.0-5.0 [facility] Comment on above: Order Comment: @ COL L DATE was changed from 03/24/17 to 03/25/17@ by [id number]. Old specimen was 0727:[id number]. Performed By: #### C REAT-EGFR, SEC CALL ####Main Lab - [id number] [place] [address] Erythrocyte distribution width Auto Ratio (RBC) 16.2 % High 11.5-14.0 [facility] Comment on above: Order Comment: @ COL L DATE was changed from 03/24/17 to 03/25/17@ by [id number]. Old specimen was 0727:[id number]. Performed By: #### C REAT-EGFR, SEC CALL ####Main Lab - [id number] [place] [address] Erythrocytes (RBC) 2.97 x10 6/uL Low 3.89-5.30 [facility] Comment on above: Order Comment: @ COL L DATE was changed from 03/24/17 to 03/25/17@ by [id number]. Old specimen was 0727:[id number]. Performed By: #### C REAT-EGFR, SEC CALL ####Main Lab - [id number] [place], [place] [address] Hematocrit (HCT) 23.9 % Low 34.8-45.0 [facility] Comment on above: Order Comment: @ COL L DATE was changed from 03/24/17 to 03/25/17@ by [id number]. Old specimen was 0727:[id number]. Performed By: #### C REAT-EGFR, SEC CALL ####Main Lab - [id number] [place], [place] [address] Hemoglobin mass conc (Bld) 7.8 g/dL Low 11.6-14.9 [facility] Comment on above: Order Comment: @ COL L DATE was changed from 03/24/17 to 03/25/17@ by [id number]. Old specimen was 0727:[id number]. Performed By: #### C REAT-EGFR, SEC CALL ####Main Lab - [id number] [place] [address] Lymphocytes 1.4 10 3/uL Normal 1.0-3.5 [facility] Comment on above: Order Comment: @ COL L DATE was changed from 03/24/17 to 03/25/17@ by [id number]. Old specimen was 0727:[id number]. Performed By: #### C REAT-EGFR, SEC CALL ####Main Lab - [id number] [place] [address] Lymphocytes/100 leukocytes 14.2 % Low 24.0-44.0 [facility] Comment on above: Order Comment: @ COL L DATE was changed from 03/24/17 to 03/25/17@ by [id number]. Old specimen was 0727:[id number]. Performed By: #### C REAT-EGFR, SEC CALL ####Main Lab - [id number] [place] [address] MCH 26.4 pg Low 27.0-31.0 [facility] Comment on above: Order Comment: @ COL L DATE was changed from 03/24/17 to 03/25/17@ by [id number]. Old specimen was 0727:[id number]. Performed By: #### C REAT-EGFR, SEC CALL ####Main Lab - [id number] [place] [address] MCHC mass conc (RBC) 32.7 g/dL Normal 32.0-36.0 [facility] Comment on above: Order Comment: @ COL L DATE was changed from 03/24/17 to 03/25/17@ by [id number]. Old specimen was 0727:[id number]. Performed By: #### C REAT-EGFR, SEC CALL ####Main Lab - [id number] [place] [address] MCV 80.5 fL Normal 78.0-100.0 [facility] Comment on above: Order Comment: @ COL L DATE was changed from 03/24/17 to 03/25/17@ by [id number]. Old specimen was 0727:[id number]. Performed By: #### C REAT-EGFR, SEC CALL ####Main Lab - [id number] [place], [place] [address] Monocytes 1.1 10 3/uL High 0.2-0.8 [facility] Comment on above: Order Comment: @ COL L DATE was changed from 03/24/17 to 03/25/17@ by [id number]. Old specimen was 0727:[id number]. Performed By: #### C REAT-EGFR, SEC CALL ####Main Lab - [id number] [place] [address] Monocytes/100 leukocytes 10.6 % High 1.7-9.3 [facility] Comment on above: Order Comment: @ COL L DATE was changed from 03/24/17 to 03/25/17@ by [id number]. Old specimen was 0727:[id number]. Performed By: #### C REAT-EGFR, SEC CALL ####Main Lab - [id number] [place], [place] [address] Neutrophils 6.6 10 3/uL Normal 1.5-6.7 [facility] Comment on above: Order Comment: @ COL L DATE was changed from 03/24/17 to 03/25/17@ by [id number]. Old specimen was 0727:[id number]. Performed By: #### Chyna REAT-EGFR, SEC CALL ####Main Lab - [id number] [place], [place] [address] Platelet mean volume (PMV) 6.8 fL Normal 6.0-9.5 [facility] Comment on above: Order Comment: @ COL L DATE was changed from 03/24/17 to 03/25/17@ by [id number]. Old specimen was 0727:[id number]. Performed By: #### Chyna REAT-EGFR, SEC CALL ####Main Lab - [id number] [place], [place] [address] Platelets 493 10 3/uL High 150-450 [facility] Comment on above: Order Comment: @ COL L DATE was changed from 03/24/17 to 03/25/17@ by [id number]. Old specimen was 0727:[id number]. Performed By: #### C REAT-EGFR, SEC CALL ####Main Lab - [id number] [place], [place] [address] Segmented Neutrophils/100 leukocytes 66.0 % Normal 36.0-66.0 [facility] Comment on above: Order Comment: @ COL L DATE was changed from 03/24/17 to 03/25/17@ by [id number]. Old specimen was 0727:[id number]. Performed By: #### C REAT-EGFR, SEC CALL ####Main Lab - [id number] [place], [place] [address] WBC (Leukocytes) 10.0 10 3/uL Normal 4.0-10.5 [facility] Comment on above: Order Comment: @ COL L DATE was changed from 03/24/17 to 03/25/17@ by [id number]. Old specimen was 0727:[id number]. Performed By: #### C REAT-EGFR, SEC CALL ####Main Lab - [id number] [place], [place] [address] NM BONE SCAN 3-PHASEon 03-25 NM BONE SCAN 3-PHASE [facility] [address] [place], [place] [id number] Diagnostic Imaging Report : [id number] Signed Name: BLAS LUJAN MRUN: [id number] : 1960 Loc: 3S Age / Sex: 56 / F ADM Status: ADM IN ADM Date: 03/24/17 Room/Bed: 312[facility] Ordering Physician: Carmen Ford MD Procedure: NM BONE SCAN 3-PHASE Order Number(s): [id number] Ordered Date: 03/25/17 Ordered Time: 1148 REASON FOR EXAM: osteomylitis COMPARISON: MRI lumbar spine 03/22/2017. CTA chest 02/04/2017. Thoracic spine plain films 02/04/2017. TECHNIQUE: Post IV 22.8 mCi CC 99 M MDP. Multi position spot imaging. Multiplanar SPECT imaging. FINDINGS: There is intense uptake at the T11 vertebral body correlating with the irregular signal and anterior wedging on MR. Findings would correlate with acute compression deformity. There is also uptake near the base of the cervical spine which can reflect similar moderate uptake at C7 or perhaps T1. Clinical correlation. IMPRESSION: Intense uptake at the T11 vertebral body compatible with acute compression/fracture correlating with MR. There is additional relatively similar uptake at C7 or T1. Clinical correlation. Dictated By: Errol Vigil DO Dictated Date/Time: 03/25/171717 Signed By: Peyman Vigil DO Signed Date/Time: 03/25/17 172 Transcribed Date/Time: 03/25/171722 Normal [facility] OT IP EVALUATIONon 7 OT IP EVALUATION [address] [place] [address] OT IP EVALUATION : S[id number] MRUN: [id number] : 1960 Loc: 3S Age / Sex: 56/ F Adm Status: ADM IN Adm Date:03/24/17 Room/Bed: [facility] OCCUPATIONAL THERAPY INPATIENT EVALUATION Date: 03/25/17 Time: 1030 am Diagnosis: Anemia, GI Bleed, Osteomyelitis T spine Treatment Diagnosis: Muscle wasting and atrophy, not elsewhere classified, unspecified site Referring Physician: Dr. Ford Orders as They Appear on Chart: OT/PT Eval and Treat Precautions: Fall Watch, NPO History of Present Illness: Pt is a 56 yo female who was sent to the hospital for severe anemia and elevated inflammatory markers concerning for osteomyelitis. Pt with chronic back pain that has been worsening. Pt with admission to [facility] about one month ago for what they thought was a septic joint of the left shoulder. Pt brought into the hospital for blood transfusion and stool occlt was found to be positive. Dr. Ross recommended IR biopsy. Past Medical History: gout, chronic back pain, OA, depression, ulcerative colitis, HTN, bone spur removed, back surgery in 2015 Home Environment: Pt lives alone in a 1 bedroom apartment with 1 step to enter. Pt's significant other lives next door in her apartment. Pt IND with ambulating without use of an AD, but reports holding onto furniture while ambulating inside her home. Pt noting significant other does have straight cane available to use if needed. Pt with tub shower with seat. Pt reporting IND with bathing and dressing tasks. She states significant other has been assisting with cooking and cleaning tasks. Pt does not drive. Bed Alarm: yes SUBJECTIVE Pain: 7/10 neck and left shoulder pain reported as dull aching arthritic pain. 6/10 pain reported in low back around the waist line. OBJECTIVE Current Functional Status Self Care: LB ADL's: IND with donning and doffing socks on BLE's while seated EOB UB ADL's: IND while seated Grooming: Seated due to impaired dynamic standing balance Toileting: IND with hygiene tasks Functional Mobility: Supine to sit: IND Sit to stand: SBAx2 In room mob: CGAx2 Physical Assessment Range of Motion: Bilateral Shoulders and Wrists are WFL Left Elbow is WFL Right Elbow full flexion with limitations in extension to 50 deg from 0 Muscle Strength: RUE Shoulder flex: 4/5 Elbow flex: 4/5 Extension: 4-/5 Wrist flex/ext: 4-/5 LUE Shoulder flex: 4-/5 Elbow flex: 4/5 Extension: 3+/5 Wrist flex/ext: 4-/5 Sustained Activity Tolerance: Pt demonstrating fair+ activity tolerance during bed mobility and in room mobility. Per pt's RN, pt was just given morphine prior to completion of evaluation. Coordination: hair opposition intact. Pt is right hand dominant. Sensation: impaired sensation noted with numbness in the right hand PF Perception: Hearing and vision both intact Cognition/Safety: Pt is alert and oriented x3. Therapist placed bed alarm on post tx session due to pt given morphine and stating she has been transferring in/out of the bed independently to go into the bathroom. ASSESSMENT Pt is a 56 yo female who was admitted to the hospital with anemia and low back pain. Pt with co-morbidities that include: chronic back pain, depression, osteoarthritis. Pt with performance deficits that include: self care (impaired dynamic standing balance during completion of ADL's), overall activity tolerance and endurance, generalized weakness in bilateral upper extremities. PLAN Treatment to include the following: thera exc, ADL's, functional transfers, education on safety Time Frame/Duration of Treatment: 1x daily during inpatient stay, 5 days a week Goals were established with the patient and are as follows: 1. Pt will participate in therapeutic exercises for bilateral upper extremity strengthening for at least 10 mins to improve upper body endurance. 2. Pt will complete in room mobility into the bathroom to perform grooming routine and UB ADL's while standing at the sink provided SBAx1. 3. Pt will complete all functional transfers provided supervision assistance with good hand placement and safety by d/c. Discharge Recommendations: OTR recommends d/c to home when medically appropriate. Evaluation Complexity Level: Low Impairment code and severity modifier chosen (All patients with Medicare): CURRENT: G8987 CJ GOAL: G8988 CI Justification: Justification based on pt's current deficits in self care routine due to generalized weakness, decreased endurance and impaired dynamic standing balance. This patient will be discharged from OT services at [facility] when all goals are met, patient has a plateau in progress, per physicians order or refusal of therapy services 3 consecutive times. Thank you very much for requesting our participation in the advancement of this patient's care! Dictated By: Tone ARNOLD/[id number] 03/25/17 1601 Dictated Date/Time: 03/25/17 1131 Transcribed Date/Time: 03/25/17 1131 Normal [facility] PROGRESS NOTEon 03-25-2017 PROGRESS NOTE [address] [place] [address] PROGRESS NOTE : [id number] Signed Name: BLAS LUJAN MRUN: [id number] : 1960 Loc: 3S Age / Sex: 56/ F Adm Status: ADM IN Adm Date:03/24/17 Room/Bed: [facility] DATE: 03/25/2017 SUBJECTIVE: The patient states that she has some back and shoulder pain this morning. Otherwise, she does not have any other complaints. She had 2 units transfused and her hemoglobin has went up from 6.6, now to 7.8. Her hemoglobin on 02/23/2017 was 9.0. No other complaints his morning. OBJECTIVE: VITAL SIGNS: Temperature is 98.5, pulse is 79, respirations 28, blood pressure 127/72 and she is 97% on room air. GENERAL: She is in no acute distress and alert and oriented. NECK: Supple. There is no JVD. LUNGS: Clear to auscultation bilaterally. HEART: Regular rate and rhythm with a systolic murmur. ABDOMEN: Soft, with mild tenderness. EXTREMITIES: There is no edema. NEUROLOGICAL: There are no focal deficits, does not complain of any new neurologic symptoms. LABORATORY STUDIES: White blood cell count is 10, hemoglobin 7.8, up from 6.0. It was 6.6 at the office. Platelets are 493. Sodium is 142, potassium is 3.8, chloride is 111. Carbon dioxide is 22. BUN is 11, creatinine is 0.56. Glucose is 89. Calcium is 9.2. Her urine showed large leukocyte esterase but was otherwise negative. Stool occult blood was positive. Cultures are pending. ASSESSMENT AND PLAN: 1. Back pain, concern for osteomyelitis. The patient has chronic back pain that had been worsening recently. She came to my office. Ordered MRI. Found to have some features on imaging concerning for osteomyelitis. However, she was not having fevers at home or any neurologic deficits or signs of cord compression but when the laboratory markers were checked, ESR was elevated, suggestive of osteomyelitis. She is currently not in sepsis. ER talked to Dr. Ross and wanted to have Interventional Radiology proceed with a biopsy that has been ordered. Held off on the antibiotics since she is stable without fever or leukocytosis just to avoid any interference with the culture results. She does have a number of antibiotic allergies and she is ALLERGIC TO BOTH LINEZOLID and VANCOMYCIN so daptomycin would be an option for Staph coverage and then for gram-negative coverage, Zosyn and Cefepime are options, even though I believe she might have a CEPHALOSPORIN ALLERGY, so perhaps Zosyn would be a good choice for gram-negative coverage. 2. Anemia, secondary to gastrointestinal bleed. The patient does have a history of ulcerative colitis and has not had a chance to follow up with her physician recently regarding this. She does not note any blood in her stool but given this history, would be more concerned with a possible lower GI bleed. I did make the patient NPO today in case a procedure that required NPO would be planned today, but her hemoglobin 02/23/2017 was 9. It was 6.6 in our office, 6.0 here. It is now 7.8 after 2 units of blood. 3. Gout. The patient had a recent admission where she was transferred to [facility] for concern for possible septic joint. However, upon their evaluation, it was found to be gout. She was placed on indomethacin then was on colchicine and was transitioned recently to allopurinol because she felt like she was having side effects with the previous medication. 4. Hypertension. The patient came to me with that diagnosis. However, she was having some dizziness and I was able to wean her off her beta mary and her blood pressure has been stable without blood pressure medications. 5. Depression. I attempted to start treatment for depression on this patient several months back, but she was unable to tolerate it and I have not gotten a chance to talk to her about trying another medication. In addition, there appears to be some social issues. Both me and the staff noticed an unhappy dynamic between her and her significant other so I directed this to [facility] team to further explore. 6. Prophylaxis. The patient was placed on mechanical prophylaxis. EXT JOB#: [id number] Dictated By: Carmen Ford MD 03/29/17 1857 03/29/17 1857 Dictated Date/Time: 03/25/17 0804 Transcribed Date/Time: 03/25/17 0831 Normal [facility] PT Inpatient Evaluationon PT Inpatient Evaluation [facility] [place] [address] PT Inpatient Evaluation : Signed Name: BLAS LUJAN MRUN: [id number] : 1960 Loc: 3S Age / Sex: 56/ F Adm Status: ADM IN Adm Date:03/24/17 Room/Bed: [facility] Physical Therapy Inpatient Evaluation Date: 03/25/2017 Time: 1025 Diagnosis: Anemia, gastrointestinal bleed, osteomyelitis T-spine. Treatment Diagnosis: Pain lumbar spine, pain cervical region, pain left shoulder, weakness. Referring Physician: Dr. Ford. Order: Physical therapy eval/treat. Precautions: Fall precautions and n.p.o. History of Present Illness: Patient is a 56-year-old female who had been experiencing increased chronic back pain. Patient received an MRI which was concerning for infection. Patient received blood draw in physician's office on 03/24/2017. Patient was noted to have elevated inflammatory markers as well as a Hgb of 6.6. Patient was sent to the Emergency Room. Patient was found to have Hgb of 6.0 and stool for occult blood positive. Patient received a urinalysis. Patient was started on a blood transfusion and admitted to acute care. Patient is now referred to physical therapy. Past Medical History: Gout, chronic back pain, osteoarthritis, depression, anxiety, ulcerative colitis, HTN, high cholesterol, heart murmur, COPD, asthma and lumbar surgery. Refer to chart for further past medical history. Home Environment: Patient reports that she lives alone in a one-story apartment with one step to enter. Patient's boyfriend lives next door. Patient reports that she ambulated without an assistive device during the day but would hold objects as needed. Patient reports that she used a straight cane at times during the night when she got up. Patient reports that she was independent with tub showering with use of shower seat as well as dressing herself. Patient's boyfriend had been doing the cooking especially secondary to her left shoulder symptoms. Patient reports that she tried to clean as able. Patient did not drive. Patient has had occasional falls but reports that it is due to blood pressure going low. Subjective: Patient is lying in bed upon therapist entering the room. Patient reports that she had MRI of her back on 03/22/2017. Patient reports that she was told to go to the Emergency Room at that time but did not go. Patient reports that she called the office for a prescription then went to physician's office. Patient received blood work which revealed a low Hgb. Patient was once again called by physician's office to go to the Emergency Room to get a transfusion. Patient presently complains of pain in the left shoulder and that she had fluid recently drained from it. Patient reports chronic problems with her back since surgery in 2014. Patient reports general arthritic pain. Patient reports numbness in the right hand. Patient appears to be alert and oriented. Patient is noted to have decreased safety awareness and judgment especially since recently receiving IV pain medication. ROM: Active range of motion of bilateral upper extremities is within functional limits except for right elbow extension 0-50 degrees. Active range of motion of bilateral lower extremities is within functional limits with dorsiflexion 2 degrees. Muscle Strength: Patient reports that she is right hand dominant. Refer to OT evaluation for muscle strength of bilateral upper extremities. Muscle strength of bilateral lower extremities is generally 3+/5 for hip flexors, hip abductors to 4-/5 for knee flexors to 4/5 for knee extensors, dorsiflexors and plantar flexors with decreased endurance to repetitive activities. Neurological: Patient presently complains of left shoulder and bilateral cervical pain at 7/10 on the pain scale. Patient has chronic back pain at 6-7/10 on the pain scale. Patient reports experiencing general arthritic pain but does not rate on the pain scale. Patient reports numbness in the right hand. Fine motor coordination appears to be intact to bilateral hands. Integumentary/Circulatory: Patient has a saline lock located in the right forearm region. Patient has knee-high MONA hose and SCDs to bilateral lower extremities. Cardiopulmonary: Refer to patient's past medical history. Functional Activity: Bed mobility: Standby assist with verbal cueing for safety as patient tends to be impulsive and to perform at a faster pace. Supine to sit: Standby assist with verbal cueing for safety as patient tends to be impulsive and to perform at a faster pace. Sit to supine: Standby assist with verbal cueing for safety and to lie to side first to protect the lower back region. Sit to stand: Contact guard with verbal and physical cues for proper hand placement and safety. Stand to sit: Contact guard to standby assist with verbal and physical cues for proper hand placement and safety. Ambulation/Stairs: Patient ambulates 60 feet without an assistive device with contact guard to minimal assist and contact guard of another. Patient tends to have a flexed posture with forward head and rounded shoulders. Patient has fair plus step lengths but ambulates with an extremely narrow base of support with scissoring gait pattern noted at times. Patient tends to veer side to side at times. Patient is noted to be unsteady throughout assessment of gait. Balance: Standing dynamic balance: Poor plus. Endurance: Endurance for ambulation: Poor plus. Patient Education: Patient is educated in the role of physical therapy, the benefits of mobility, the possible use of an assistive device to promote improved safety and gait components, and safety techniques. Patient requires reinforcement during the evaluation. Physical Therapy Goals to be achieved in 5-7 days. 1. Increased strength and endurance of bilateral lower extremities to promote increased functional mobility and safety by performing strengthening exercises to patient's tolerance. 2. Modified independent for bed mobility with decreased verbal cues and increased safety. 3. Modified independent for transfers supine to sit and sit to supine with decreased verbal cues and increased safety. 4. Standby assist for transfers sit to stand and stand to sit with increased safety and decreased risk of falls to promote safe functional transfers for return home. 5. Standby assist for ambulation at least 150 feet with forward wheeled walker or most appropriate assistive device, increased posture, increased safety and increased gait components to promote safe and independent functional mobility with decreased risk of falls upon return home. 6. Assess status on one step. Patient Goals: Patient's goals are to have decreased pain and to move better so that she may return home. Rehab Potential: fair and slow due to patient's weakness and level of pain. Treatment Plan: Patient will be seen 1-2 treatment sessions per day 5 days per week and 1 treatment session per day one day per week consisting of therapeutic exercise bilateral lower extremities to increase strength and endurance for improved functional mobility, bed mobility training, transfer training, and gait training. Emphasis will be placed on increased safety and gait components with instruction in the use of an appropriate assistive device. As patient's status improves, patient will be seen for assessment of status on one step. Discharge Plan: Patient will be discharged from physical therapy upon achievement of above goals, physicians orders, and/or plateau in function. At this time, patient will be further assessed for appropriate discharge needs depending on patient's progress while on acute care. Post Treatment Positioning: Patient is lying in bed with bed alarm on. Patient has call light, phone, and tray table within reach. Nursing staff is aware of patient's position as physical therapist informs patient's RN, Andreina Larose. Treatment Minutes: Evaluation in the a.m. Evaluation Complexity Level: Moderate Impairment code and severity modifier chosen (All patient's with Medicare Medicare HMOs): CURRENT : G8978 CL 60-79% impaired GOAL: G8979 CJ 20-39% impaired Justification: Patient has had a decline in strength, safety, and functional mobility at home due to increased back pain and low Hgb. Patient currently demonstrates decreased strength and endurance of bilateral lower extremities, decreased safety as patient tends to be impulsive, decreased balance and decreased functional mobility with poor gait components. Patient requires skilled physical therapy intervention at this time. Thank you for this referral. Please feel free to call with any questions or concerns. Dictated By: Feliberto KIRAN [id number] 03/28/17 0815 Dictated Date/Time: 03/25/17 1025 Transcribed Date/Time: 03/25/17 1737 Normal [facility] PT WITH INRon 03-25-2017 INR Coag RelTime (PPP) 1.0 {INR} Normal [facility] Comment on above: Result Comment: RAMON MMENDED RANGES FOR INR: Therapeutic range for standard therapy INR: 2.0-3.0 Therapeutic range for high dose therapy INR: 2.5-3.5 Performed By: #### C REAT-EGFR, SEC CALL ####Main Lab - [id number] [place], [place] [address] Prothrombin time (PT) Coag time (PPP) 13.4 s Normal 12.0-14.5 [facility] Comment on above: Performed By: #### C REAT-EGFR, SEC CALL ####Main Lab - [id number] [place], [place] [address] REPORT OF CONSULTATIONon REPORT OF CONSULTATION [address] [place] [address] REPORT OF CONSULTATION : [id number] Signed Name: BLAS LUJAN MRUN: [id number] : 1960 Loc: 3S Age / Sex: 56/ F Adm Status: ADM IN Adm Date:03/24/17 Room/Bed: [facility] DATE: 03/25/2017 HISTORY: 56-year-old female, well-known to me from previous GI issues, who is here in the hospital. I am asked to see her in consultation. The patient has severe back pain, she had gout in her shoulder, question of osteo of the vertebrae. She underwent a workup for that today. She had a questionable MRI. She came in to the medical service. She had been anemic, required a transfusion and is now for evaluation for that. She was stool occult blood positive. I had done an endoscopic workup on her. She had a colonoscopy on 12/03/2015 for diarrhea. 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 She had been having issues with dehydration, to the point of renal impairment at that point in time, as well as weight loss. There were no visible areas of inflammation, but the biopsy was as noted. She also underwent an upper endoscopy on 10/01/2016, at which time she had just some dysphagia and esophagitis and those biopsies just showed mild acute and chronic inflammation, but no metaplasia. When I saw her today, she was in a lot of discomfort, laying on her side trying to stay off her back. Her hemoglobin today was 7.8, it was 6.0 yesterday, white count 10, platelet count 493 today. Coags were normal. Her LFTs were normal. Stool occult blood yesterday was positive. The patient does not note any gross blood in her stool, however. Really no changes in reflux or anything of that nature either. MEDICATIONS: Include Xanax, ProAir, aspirin, Naprosyn, Topamax, Neurontin, Zanaflex. She apparently has not been on anything for her microscopic colitis or reflux lately. ALLERGIES: CEFUROXIME, DEXTROMETHORPHAN, BROMPHENIRAMINE, VANCOMYCIN, IBUPROFEN, NAPROSYN, ZYVOX, PSEUDOEPHRINE. SOCIAL HISTORY: Previous smoker. PAST MEDICAL HISTORY: Includes the GI issues identified above with reflux and microscopic colitis. The back issue currently being worked up. Shoulder, as noted. Hypertension by history. She did have a paraspinal abscess in the past, history of substance abuse in the past, elevated cholesterol. FAMILY HISTORY: Negative for GI malignancy. REVIEW OF SYSTEMS: Back pain. The patient's weight, she lost a lot of weight apparently this past year, but she is only down 4 pounds since I saw her 4 months ago. No gross bleeding. Some chronic loose stool but, as noted, she has not been on current treatment for her microscopic colitis that I can find. Chronic shortness of breath, nothing acute. Colitis currently not treated. Reflux, I do not see a PPI medication prior to this admission since I last saw her. Loose stool, no gross blood. Nausea with occasional emesis. Dysphagia, which is chronic and had been worked up. Chronic pain, especially in her shoulder. No fevers, chills or jaundice, but she is rather anemic in appearance and weakness, which is consistent with her anemia. PHYSICAL EXAMINATION: GENERAL: This is a middle-aged female who looks older than her stated age. She weighs 60 kg for a BMI of 21. As noted, that is only 4 pounds lower than when I saw her 4 months ago. VITAL SIGNS: She is afebrile, heart rate is in the 70s. HEENT: Sclerae clear, she is not icteric. NECK: Without masses. EXTREMITIES: Thin. I did not try to move her around much as she was in a lot of pain and was trying to keep comfortable on her side. ABDOMEN: Seems soft and nontender, but again, it was difficult to examine her because I could not get her to lay flat due to the pain in her back. There was no obvious tenderness or masses. IMPRESSION 1. Anemia. 2. Hemoccult positive stool. 3. History of colitis. 4. Reflux. 5. Current workup for her vertebral osteo. 6. Hypertension. 7. Hypercholesterolemia. PLAN: I had been called when she came to the ER. She was admitted to the medical service, workup as noted. She is transfused. She is undergoing current evaluation today to determine if she has vertebral osteo. The way the studies are set up with the radioactive isotopes and delayed imaging, there is no way to get her to endoscopy today with any reasonable idea of being able to keep her on schedule. As such, we will go ahead and do an upper endo in the morning. I do not see the necessity of an immediate repeat colonoscopy since it has only been a year given the previous findings, but certainly with all of her issues and sudden decrease in hemoglobin, an upper endo repeat would be reasonable, though it is quite possible a chronic illness could be contributing to this, but the heme positive stool needs to be addressed. I talked with the patient and she is agreeable to having an upper endo in the morning. Thank you very much for the opportunity to evaluate this pleasant lady. EXT JOB#: [id number] Dictated By: Chavez Sheikh MD 03/29/17172503/29/17 1726 Dictated Date/Time: 03/25/17 1525 Transcribed Date/Time: 03/25/17 1653 Normal [facility] ABO/RH TYPE NCon 03-24-2017 BLOOD TYPE AP Normal [facility] Comment on above: Order Comment: @02/27: ABO/RH TYPE NC added. RFLXG = NBT2. Performed By: #### C REAT-EGFR, SEC CALL ####Main Lab - [id number] [place], [place] [address] C-REACTIVE PROTEINon 07-27-2 017 C reactive protein (CRP) 0.90 mg/dL Normal 0.0-1.0 [facility] Comment on above: Performed By: #### C REAT-EGFR, SEC CALL ####Main Lab - [id number] [place], [place] [address] CBC WITH AUTO DIFFon 017 Basophils Auto #/vol (Bld) 0.1 10 3/uL Normal 0.0-0.2 [facility] Comment on above: Performed By: #### C MP, PT, CBC, PTT, ESR, CPK 1, CKMB 1, TROP 1, ST OCC BLD ####Main Lab - [id number] [place], [place] [address] Basophils/100 WBC Auto (Bld) 1.3 % High 0.0-1.0 [facility] Comment on above: Performed By: #### C MP, PT, CBC, PTT, ESR, CPK 1, CKMB 1, TROP 1, ST OCC BLD ####Main Lab - [id number] [place], [place] [address] Eosinophils 0.7 10 3/uL Normal 0.0-0.7 [facility] Comment on above: Performed By: #### C MP, PT, CBC, PTT, ESR, CPK 1, CKMB 1, TROP 1, OCC BLD ####Main Lab - [id number] [place], [place] [address] Eosinophils/100 leukocytes 7.3 % High 0.0-5.0 [facility] Comment on above: Performed By: #### C MP, PT, CBC, PTT, ESR, CPK 1, CKMB 1, TROP 1, ST OCC BLD ####Main Lab - [id number] [place], [place] [address] Erythrocyte distribution width Auto Ratio (RBC) 16.8 % High 11.5-14.0 [facility] Comment on above: Performed By: #### C MP, PT, CBC, PTT, ESR, CPK 1, CKMB 1, TROP 1, OCC BLD ####Main Lab - [id number] [place] [address] Erythrocytes (RBC) 2.34 x10 6/uL Low 3.89-5.30 [facility] Comment on above: Performed By: #### C MP, PT, CBC, PTT, ESR, CPK 1, CKMB 1, TROP 1, ST OCC BLD ####Main Lab - [id number] [place] [address] Hematocrit (HCT) 18.6 % Low 34.8-45.0 [facility] Comment on above: Performed By: #### C MP, PT, CBC, PTT, ESR, CPK 1, CKMB 1, TROP 1, ST OCC BLD ####Main Lab - [id number] [place] [address] Hemoglobin mass conc (Bld) 6.0 g/dL Critically low 11.6-14.9 [facility] Comment on above: Result Comment: Crit ical Result HGB:6.0 Called to SYDNI GRIJALVA RN at:17:44:57 by:JOYCE Read back by:SYDNI GRIJALVA RN Performed By: #### C MP, PT, CBC, PTT, ESR, CPK 1, CKMB 1, TROP 1, ST OCC BLD ####Main Lab - [id number] [place] [address] Lymphocytes 1.7 10 3/uL Normal 1.0-3.5 [facility] Comment on above: Performed By: #### C MP, PT, CBC, PTT, ESR, CPK 1, CKMB 1, TROP 1, ST OCC BLD ####Main Lab - [id number] [place] [address] Lymphocytes/100 leukocytes 18.9 % Low 24.0-44.0 [facility] Comment on above: Performed By: #### C MP, PT, CBC, PTT, ESR, CPK 1, CKMB 1, TROP 1, ST OCC BLD ####Main Lab - [id number] [place] [address] MCH 25.8 pg Low 27.0-31.0 [facility] Comment on above: Performed By: #### C MP, PT, CBC, PTT, ESR, CPK 1, CKMB 1, TROP 1, ST OCC BLD ####Main Lab - [id number] [address] mass conc (RBC) 32.5 g/dL Normal 32.0-36.0 [facility] Comment on above: Performed By: #### C MP, PT, CBC, PTT, ESR, CPK 1, CKMB 1, TROP 1, ST OCC BLD ####Main Lab - [id number] [place] [address] MCV 79.4 fL Normal 78.0-100.0 [facility] Comment on above: Performed By: #### C MP, PT, CBC, PTT, ESR, CPK 1, CKMB 1, TROP 1, ST OCC BLD ####Main Lab - [id number] [place] [address] Monocytes 1.0 10 3/uL High 0.2-0.8 [facility] Comment on above: Performed By: #### C MP, PT, CBC, PTT, ESR, CPK 1, CKMB 1, TROP 1, ST OCC BLD ####Main Lab - [id number] [place] [address] Monocytes/100 leukocytes 11.2 % High 1.7-9.3 [facility] Comment on above: Performed By: #### C MP, PT, CBC, PTT, ESR, CPK 1, CKMB 1, TROP 1, ST OCC BLD ####Main Lab - [id number] [place] [address] Neutrophils 5.5 10 3/uL Normal 1.5-6.7 [facility] Comment on above: Performed By: #### C MP, PT, CBC, PTT, ESR, CPK 1, CKMB 1, TROP 1, ST OCC BLD ####Main Lab - [id number] [place] [address] Platelet mean volume (PMV) 6.6 fL Normal 6.0-9.5 [facility] Comment on above: Performed By: #### C MP, PT, CBC, PTT, ESR, CPK 1, CKMB 1, TROP 1, ST OCC BLD ####Main Lab - [id number] [place] [address] Platelets 521 10 3/uL High 150-450 [facility] Comment on above: Performed By: #### C MP, PT, CBC, PTT, ESR, CPK 1, CKMB 1, TROP 1, ST OCC BLD ####Main Lab - [id number] [place], [place] [address] Segmented Neutrophils/100 leukocytes 61.3 % Normal 36.0-66.0 [facility] Comment on above: Performed By: #### C MP, PT, CBC, PTT, ESR, CPK 1, CKMB 1, TROP 1, ST OCC BLD ####Main Lab - [id number] [place], [place] [address] WBC (Leukocytes) 9.0 10 3/uL Normal 4.0-10.5 [facility] Comment on above: Performed By: #### C MP, PT, CBC, PTT, ESR, CPK 1, CKMB 1, TROP 1, ST OCC BLD ####Main Lab - [id number] [place], [place] [address] COMPREHENSIVE METABOLIC PANE Negro 03-24-2017 Albumin 3.2 g/dL Low 3.9-5.0 [facility] Comment on above: Performed By: #### C MP, PT, CBC, PTT, ESR, CPK 1, CKMB 1, TROP 1, ST OCC BLD ####Main [facility] - [id number] [place], [place] [address] Albumin/Globulin Ratio 1.0 {ratio} Low 1.1-1.8 [facility] Comment on above: Performed By: #### C MP, PT, CBC, PTT, ESR, CPK 1, CKMB 1, TROP 1, ST OCC BLD ####Main [place] [id number] [place], [place] [address] Alkaline phosphatase (ALP) 73 U/L Normal 43-122 [facility] Comment on above: Performed By: #### C MP, PT, CBC, PTT, ESR, CPK 1, CKMB 1, TROP 1, ST OCC BLD ####Main Lab [place] [id number] [place], [place] [address] ALT/SGPT 11 U/L Normal 7-56 [facility] Comment on above: Performed By: #### C MP, PT, CBC, PTT, ESR, CPK 1, CKMB 1, TROP 1, ST OCC BLD ####Main Lab - [id number] [place], [place] [address] Anion gap 12 mmol/L Normal 9-18 [facility] Comment on above: Performed By: #### C MP, PT, CBC, PTT, ESR, CPK 1, CKMB 1, TROP 1, ST OCC BLD ####Main Lab - [id number] [place] [address] AST/SGOT 14 U/L Normal 8-39 [facility] Comment on above: Performed By: #### C MP, PT, CBC, PTT, ESR, CPK 1, CKMB 1, TROP 1, ST OCC BLD ####Main Lab - [id number] [place] [address] Bilirubin (total) 0.5 mg/dL Normal 0.2-1.3 [facility] Comment on above: Performed By: #### C MP, PT, CBC, PTT, ESR, CPK 1, CKMB 1, TROP 1, ST OCC BLD ####Main Lab - [id number] [place] [address] BUN (urea nitrogen) 16 mg/dL Normal 7-21 [facility] Comment on above: Performed By: #### C MP, PT, CBC, PTT, ESR, CPK 1, CKMB 1, TROP 1, ST OCC BLD ####Main Lab - [id number] [place] [address] BUN/Creatinine Ratio 25.4 Ratio Normal 5.0-42.0 [facility] Comment on above: Performed By: #### C MP, PT, CBC, PTT, ESR, CPK 1, CKMB 1, TROP 1, ST OCC BLD ####Main Lab - [id number] [place] [address] Calcium 8.3 mg/dL Low 8.4-10.2 [facility] Comment on above: Performed By: #### C MP, PT, CBC, PTT, ESR, CPK 1, CKMB 1, TROP 1, ST OCC BLD ####Main Lab - [id number] [place] [address] Chloride 105 mmol/L Normal 98-107 [facility] Comment on above: Performed By: #### C MP, PT, CBC, PTT, ESR, CPK 1, CKMB 1, TROP 1, ST OCC BLD ####Main Lab - [id number] [place] [address] CO2 21 mmol/L Low 22-31 [facility] Comment on above: Performed By: #### C MP, PT, CBC, PTT, ESR, CPK 1, CKMB 1, TROP 1, ST OCC BLD ####Main Lab - [id number] [place] [address] Creatinine 0.63 mg/dL Low 0.80-1.30 [facility] Comment on above: Performed By: #### C MP, PT, CBC, PTT, ESR, CPK 1, CKMB 1, TROP 1, ST OCC BLD ####Main Lab - [id number] [place] [address] eGFR (non-black) mL/min/{1.73_m2} Normal [facility] Comment on above: Performed By: #### C MP, PT, CBC, PTT, ESR, CPK 1, CKMB 1, TROP 1, ST OCC BLD ####Main Lab - [id number] [place] [address] Globulin 3.1 g/dL Normal [facility] Comment on above: Performed By: #### C MP, PT, CBC, PTT, ESR, CPK 1, CKMB 1, TROP 1, ST OCC BLD ####Main Lab - [id number] [place] [address] Glucose mass conc 77 mg/dL Normal 70-99 [facility] Comment on above: Result Comment: The glucose range is based on recommendations from theAmerican Diabetes Association for fasting blood glucoserange. Performed By: #### C MP, PT, CBC, PTT, ESR, CPK 1, CKMB 1, TROP 1, ST OCC BLD ####Main Lab - [id number] [place] [address] Potassium molar conc 3.9 mmol/L Normal 3.6-5.0 [facility] Comment on above: Performed By: #### C MP, PT, CBC, PTT, ESR, CPK 1, CKMB 1, TROP 1, ST OCC BLD ####Main Lab - [id number] [place] [address] Protein 6.3 g/dL Normal 6.3-8.2 [facility] Comment on above: Performed By: #### C MP, PT, CBC, PTT, ESR, CPK 1, CKMB 1, TROP 1, ST OCC BLD ####Main Lab - [id number] [place] [address] Sodium 134 mmol/L Low 137-145 [facility] Comment on above: Performed By: #### C MP, PT, CBC, PTT, ESR, CPK 1, CKMB 1, TROP 1, ST OCC BLD ####Main Lab - [id number] [place] [address] Age 56 Years Normal [facility] Comment on above: Performed By: #### C MP, PT, CBC, PTT, ESR, CPK 1, CKMB 1, TROP 1, ST OCC BLD ####[facility] - [id number] [place] [address] CREATINE KINASEon 03-24-2017 Creatine kinase (CK) 44 U/L Low 55-170 [facility] Comment on above: Performed By: #### C MP, PT, CBC, PTT, ESR, CPK 1, CKMB 1, TROP 1, ST OCC BLD ####[facility] - [id number] [place] [address] CREATINE KINASE MBon 017 CKMB 1.5 ng/mL Normal 0.0-3.7 [facility] Comment on above: Performed By: #### C REAT-EGFR, SEC CALL ####Main Lab - [id number] [place] [address] EMERGENCY ROOM NOTEon 2016 EMERGENCY ROOM NOTE [address], [place] [address] EMERGENCY ROOM NOTE : [id number] Signed Name: BLAS LUJAN MRUN: [id number] : 1960 Loc: 3S Age / Sex: 56/ F Adm Status: ADM IN Adm Date:03/24/17 Room/Bed: 312- DATE OF SERVICE: 03/24/2017. CHIEF COMPLAINT: Back pain. HISTORY OF PRESENT ILLNESS: A 56-year-old comes in complaining of chronic back pain. No radicular symptoms or loss of bowel or bladder control. No saddle paresthesias. PHYSICAL EXAMINATION HEART: RRR. LUNGS: CTA. ABDOMEN: Soft, nontender, nondistended. Positive bowel sounds. No guarding or rebound. BACK: She has some pain in her low back. EXTREMITIES: Show no clubbing, cyanosis or edema. NECK: Showed no JVD. No bruits. Trachea is in the midline. No thyromegaly. MEDICAL DECISION MAKING: Hgb is 6. She has a history surgery in the past with question of some osteomyelitis. The patient will be admitted for further evaluation and treatment. Stool for occult blood is positive. DIAGNOSES 1. Gastrointestinal bleed. 2. Anemia. 3. Chronic back pain. 4. Questionable osteomyelitis. CONDITION ON ADMISSION: Stable. EXT JOB#: [id number] Dictated By: Pito Kelley MD 03/24/17211203/24/172112 Dictated Date/Time: 03/24/171916 Transcribed Date/Time: 03/24/171940 Normal [facility] ERYTHROCYTE SEDIMENTATION RA Jimmy 03-24-2017 Erythrocyte sedimentation rate mm/h High 0-20 [facility] Comment on above: Performed By: #### C MP, PT, CBC, PTT, ESR, CPK 1, CKMB 1, TROP 1, ST OCC BLD ####Main Lab - [id number] [place], [place] [address] OCCULT BLOOD, STOOLon 2016 OCCULT BLOOD, STOOL Positive Abnormal NEGATIVE [facility] [facility] Comment on above: Result Comment: @Int ernal Pos/Neg controls reacted as detailed in procedure@literature. Performed By: #### C REAT-EGFR, SEC CALL ####Main Lab - [id number] [place], [place] [address] PARTIAL THROMBOPLASTIN TIMEo n 03-24-2017 aPTT 28.8 s Normal 24.1-41.2 [facility] Comment on above: Performed By: #### C MP, PT, CBC, PTT, ESR, CPK 1, CKMB 1, TROP 1, ST OCC BLD ####Main Lab - [id number] [place], [place] [address] PERSONAL HISTORY AND PHYSICA Negro 03-24-2017 PERSONAL HISTORY AND PHYSICAL [address] [place] [address] PERSONAL HISTORY AND PHYSICAL : [phone] Signed Name: BLAS LUJAN MRUN: [id number] : 1960 Loc: 3S Age / Sex: 56/ F Adm Status: ADM IN Adm Date:03/24/17 Room/Bed: 312-01 DATE: 03/24/2017. CHIEF COMPLAINT: Back pain. HISTORY OF PRESENT ILLNESS: This is a 56 year old female, well known to me, as she has had somewhat of a milana course this past few months, who was sent over from the office at [facility] due to her LAB findings of severe anemia as well as her MRI findings and elevated inflammatory markers concerning for osteomyelitis. This patient has chronic back pain and has had trouble with her back for some time; however, her back had been getting worse and her boyfriend was concerned when her saw her earlier this month and wanted to proceed with an MRI to see if anything was going on. During all this time, the patient did not have any complaint of any fevers, any loss of bladder or bowel function or any new numbness in the lower extremities or any saddle anesthesia but had been having progressive pain. Prior to this, she was in the hospital at [facility] about a month ago for what was thought was a septic joint but, upon evaluation further from orthopedics at [facility], they felt it was gout and the cultures ended up becoming negative, and she was treated for that with Colcrys and then was transitioned to allopurinol. However, now, the MRI findings were concerning. I wanted her to go to the ER yesterday. In fact, this patient did not end up going, and then she just came into the office today. I had the blood work done and it came back not only with elevated inflammatory markers, we also blood cultures, as well, but the severe anemia. Due to all these findings, we called the patient back and did persuade her come to the ER where she had been started on blood transfusion. Stool occult was found to be positive. They talked to Dr. Ross over the phone regarding the MRI findings, since the patient has history of having back surgery in [address] Ross and he recommended that she be admitted and get an IR biopsy of the region, so that request has been placed. The ER also talked to Dr. Cordova regarding the GI bleed. At this time, the patient just has complaints of pain. She does not have any neurologic deficits. Other than complaints of pain and muscle spasm, she does not have any other complaints currently at this point in time. PAST MEDICAL HISTORY: Gout, chronic back pain, osteoarthritis, depression, ulcerative colitis and hypertension. PAST SURGICAL HISTORY: She had a bone spur removal. She had surgery on her back in 2015. ALLERGIES: 1. TRAMADOL. 2. IBUPROFEN. 3. CEFUROXIME. 4. BROMPHENIRAMINE. 5. DEXTROMETHORPHAN. 6. REGLAN. 7. VANCOMYCIN. 8. ZYVOX. MEDICATIONS AT HOME: Allopurinol, albuterol inhaler, naproxen, Neurontin, Zanaflex, Topamax and Xanax. FAMILY HISTORY: Her brother had CHF. She had a brother who from suicide. Her father has diabetes mellitus type 2 and he had cancer of his throat. SOCIAL HISTORY: She quit smoking in 1978. She is a social drinker, drinks 1-2 drinks a week. REVIEW OF SYSTEMS All other systems review is negative other than what is mentioned in the HPI. She states that she has not noticed any bloody bowel movements or dark-tarry stools. OBJECTIVE: VITAL SIGNS: TEMP 98.0, pulse 76, respirations 16, BP 138/80 and 100% on room air. GENERAL: She is no acute distress. She is alert and oriented. Sometimes she does get confused in telling her history and does appear somewhat disheveled at times. NECK: Supple, there is no JVD. LUNGS: Clear to auscultation bilaterally. HEART: Regular rate and rhythm but she does have a systolic murmur. ABDOMEN: Soft, nontender. EXTREMITIES: No edema. NEUROLOGIC: No focal deficits. LABORATORY STUDIES: White blood cell count 9.0, hemoglobin 6.0, platelets 521, PT 13.4, INR 1.0. Sodium 134, potassium 3.9, chloride 105, carbon dioxide 21, BUN 16, creatinine 0.63, glucose 77, calcium 8.3, total Bili 0.5, AST 14, ALT 11, alkaline phosphatase 73, creatinine kinase 44, troponin 0.03. C-reactive protein 0.9, total protein 6.3, albumin 3.2. Stool occult blood positive. Urinalysis shows leukocyte esterase but negative other than that. ESR is greater than 140. Lumbar spine MRI from 03/22/2017 showed signal alteration with abnormal enhancement and mild to moderate vertebral body height loss suspicious for osteomyelitis, correlate clinically. There is intervertebral disk height loss, as well. Pathologic fracture is not excluded. Grade 2 anterolisthesis of L5 on S1 resulting in foraminal stenosis, detailed above. Motion artifacts. ASSESSMENT AND PLAN: 1. Back pain, concern for osteomyelitis. This patient has chronic back pain, however, she came to my office and it was noted between her and her significant other that this back pain seemed to have gotten worse but no new focal deficits. Proceeded with MRI to assess the status of this patient's back given that it has been causing her so much discomfort recently. She did not note any fevers or any signs of cord compression then or now. It was found that she did have some changes there that were concerning for osteomyelitis. The patient denies having any fevers but does state that she seemed to have some chills on and off for some time. Went ahead, as she came into the office, and ordered inflammatory markers and blood cultures. Inflammatory markers were elevated and, in addition, it was found that she was fairly anemic, as well. So for both of these reasons, we sent the patient over for admission. The emergency room spoke with Dr. Ross because I wanted to make sure that he was aware in case he felt like surgical intervention was necessary or transfer was necessary and he felt that the patient could stay and get an IR biopsy, so that has been placed. I did not end up putting the patient on antibiotics yet because she is not in sepsis and I just felt like, since we could wait to get the sample, that we could wait just to make sure that we get the best sample possible. Appreciate Dr. Ross's help in managing this patient. 2. Anemia secondary to gastrointestinal bleed. The patient denies any black or bloody stools; however, she does have a history of ulcerative colitis which makes the possibility of blood loss even higher. She has not followed up with this. She was supposed to followup with her physician who manages her ulcerative colitis and has not gotten a chance to do so. She will be transfused 2 units and Surgery was consulted to see the patient and determine if any intervention would be needed at this point in time and will have to urge the patient to follow back up with her office runner with this, I believe that he in [place]. I will check my records and find out and make sure that she gets followup with this. The patient's prior hemoglobin on 02/23/2017 was 9.0. 3. Gout. The patient was just recently diagnosed with gout in her left shoulder. She had a large effusion and initially it was thought to be septic but it ended up being determined that it was indeed gout. She was treated with initially indomethacin then she was transitioned to colchicine and now is maintained on allopurinol. The swelling in her shoulder has gone down significantly. 4. Hypertension. Patient had a long-standing diagnosis of hypertension; however, I ended up weaning her off of her beta-mary because she had some falls at home and I was worried that it could be contributing to some dizziness, so I tried to wean down of her sedating medication and she seems like she has been fine since and her BP is controlled here, as well. 5. Depression. I saw this patient about 2 months and I tried to start treatment for depression with Zoloft, but she states that she cannot tolerate this medicine, it made her nauseated, and I have not gotten a chance to try another medication because so many other issues came up in the meantime that are distracting us from getting back to treating her depression. This is something we can talk about some more. In addition, there appears to be some social issues that we have some concern about. Just based on my observation of this patient's significant other, there is some concern that this may be an unhealthy relationship which I directed the [facility] team to address. 6. Prophylaxis. The patient was placed on mechanical prophylaxis. EXT JOB#: [id number] Dictated By: Carmen Ford MD 03/29/177 03/29/171856 Dictated Date/Time: 03/24/17 2137 Transcribed Date/Time: 03/25/17 0704 Normal [facility] PT WITH INRon 03-24-2017 INR Coag RelTime (PPP) 1.0 {INR} Normal [facility] Comment on above: Result Comment: RAMON MMENDED RANGES FOR INR: Therapeutic range for standard therapy INR: 2.0-3.0 Therapeutic range for high dose therapy INR: 2.5-3.5 Performed By: #### C MP, PT, CBC, PTT, ESR, CPK 1, CKMB 1, TROP 1, ST OCC BLD ####Main Lab - [id number] [place] [address] Prothrombin time (PT) Coag time (PPP) 13.4 s Normal 12.0-14.5 [facility] Comment on above: Performed By: #### C MP, PT, CBC, PTT, ESR, CPK 1, CKMB 1, TROP 1, ST OCC BLD ####Main Lab - [id number] [place] [address] TROPONIN Ion 03-24-2017 Troponin I.cardiac mass conc ng/mL Normal 0.0-0.03 [facility] Comment on above: Result Comment: Refe rence Interval < or = 0.03 ng/mLClinical Correlation Needed 0.03 - 0.12 ng/mLAMI Cutoff, Presumptive = or > 0.12 ng/mL Performed By: #### C REAT-EGFR, SEC CALL ####Main Lab - [id number] [place] [address] TYPE AND NPPAU-QURF-MUbs Erythrocytes (RBC) NOT AVAILABLE Normal [facility] Comment on above: Performed By: #### C REAT-EGFR, SEC CALL ####Main Lab - [id number] [place] [address] TYPE AND SCREENon 03-24-2017 ANTIBODY SCREEN Negative Normal [facility] Comment on above: Performed By: #### C REAT-EGFR, SEC CALL ####Main Lab - [id number] [place] [address] BLOOD TYPE AP Normal [facility] Comment on above: Performed By: #### C REAT-EGFR, SEC CALL ####Main Lab - [id number] [place] [address] URINE MICROSCOPICon 03-24-20 17 REFLEX TO URINE CULTURE SEE URINE CULTURE Normal [facility] Comment on above: Order Comment: @02/27: UMIC added. RFLXG = UMIC2. Performed By: #### C REAT-EGFR, SEC CALL ####Main Lab - [id number] [place], [place] [address] SQUAMOUS EPITHELIAL CELL,UR FEW Abnormal [facility] Comment on above: Order Comment: @02/27: UMIC added. RFLXG = UMIC2. Performed By: #### C REAT-EGFR, SEC CALL ####Main Lab - [id number] [place], [place] [address] Urine, erythrocytes in sediment by area 0-3 Normal [facility] Comment on above: Order Comment: @02/27: UMIC added. RFLXG = UMIC2. Performed By: #### C REAT-EGFR, SEC CALL ####Main Lab - [id number] [place] [address] Urine, leukocytes in sedmiment 0-5 Normal [facility] Comment on above: Order Comment: @02/27: UMIC added. RFLXG = UMIC2. Result Comment: Unle ss otherwise noted, urine microscopic evaluation isnormal. Performed By: #### C REAT-EGFR, SEC CALL ####Main Lab - [id number] [place], [place] [address] URINE PROTOCOLon 03-24-2017 BLOOD,URINE Negative Normal NEGATIVE [facility] Comment on above: Order Comment: @02/27: UMIC added. RFLXG = UMIC2. Performed By: #### C REAT-EGFR, SEC CALL ####Main Lab - [id number] [place], [place] [address] NITRITE,URINE Negative Normal NEGATIVE [facility] Comment on above: Order Comment: @02/27: UMIC added. RFLXG = UMIC2. Performed By: #### C REAT-EGFR, SEC CALL ####Main Lab - [id number] [place], [place] [address] PROTEIN,URINE Negative Normal NEGATIVE [facility] Comment on above: Order Comment: @02/27: UMIC added. RFLXG = UMIC2. Performed By: #### C REAT-EGFR, SEC CALL ####Main Lab - [id number] [place], [place] [address] Urine, clarity SLIGHTLY-CLOUDY Normal [facility] Comment on above: Order Comment: @02/27: UMIC added. RFLXG = UMIC2. Performed By: #### C REAT-EGFR, SEC CALL ####Main Lab - [id number] [place] [address] Urine, color YELLOW Normal [facility] Comment on above: Order Comment: @02/27: UMIC added. RFLXG = UMIC2. Performed By: #### C REAT-EGFR, SEC CALL ####Main Lab - [id number] [place] [address] Urine, glucose presence Negative Normal NEGATIVE [facility] Comment on above: Order Comment: @02/27: UMIC added. RFLXG = UMIC2. Performed By: #### C REAT-EGFR, SEC CALL ####Main Lab - [id number] [place] [address] Urine, ketones presence Negative Normal NEGATIVE [facility] Comment on above: Order Comment: @02/27: UMIC added. RFLXG = UMIC2. Performed By: #### C REAT-EGFR, SEC CALL ####Main Lab - [id number] [place] [address] Urine, leukocyte esterase presence LARGE Abnormal NEGATIVE [facility] Comment on above: Order Comment: @02/27: UMIC added. RFLXG = UMIC2. Performed By: #### C REAT-EGFR, SEC CALL ####Main Lab - [id number] [place] [address] Urine, pH 6.0 [pH] Normal 5.0-8.0 [facility] Comment on above: Order Comment: @02/27: UMIC added. RFLXG = UMIC2. Performed By: #### C REAT-EGFR, SEC CALL ####Main Lab - [id number] [place], [place] [address] Urine, specific gravity 1.013 SP.GR. Normal <1.029 [facility] Comment on above: Order Comment: @02/27: UMIC added. RFLXG = UMIC2. Performed By: #### C REAT-EGFR, SEC CALL ####Main Lab - [id number] [place] [address] UROBILINOGEN,URINE Negative Normal <2 mg/dL [facility] Comment on above: Order Comment: @02/27: UMIC added. RFLXG = UMIC2. Performed By: #### C REAT-EGFR, SEC CALL ####Main Lab - [id number] [place] [address] CREATININE WITH EGFRon 03-22 Creatinine 0.67 mg/dL Low 0.80-1.30 [facility] Comment on above: Performed By: #### C REAT-EGFR, SEC CALL ####Main Lab - [id number] [place] [address] eGFR (non-black) mL/min/{1.73_m2} Normal [facility] Comment on above: Performed By: #### C REAT-EGFR, SEC CALL ####Main Lab - [id number] [place] [address] MRI LUMBAR SPINE W/WO CONTRA STon 03-22-2017 MRI LUMBAR SPINE W/WO CONTRAST [facility] [address] [place], [place] [id number] Diagnostic Imaging Report : [id number] Signed Name: BLAS LUJAN MRUN: [id number] : 1960 Loc: MRI Age / Sex: 56 / F ADM Status: REG CLI ADM Date: 03/22/17 Room/Bed: Ordering Physician: Liliana DELACRUZ, Carmen Padgett Procedure: MRI LUMBAR SPINE W/WO CONTRAST Order Number(s): [id number] Ordered Date: 03/22/17 Ordered Time: 925 REASON FOR EXAM: LOW BACK PAIN WITH SCIATICA PRESSURE COMPARISON: MRI lumbar spine dated 05/07/2015. TECHNIQUE: Multiplanar, multi-sequence MRI images were obtained of the lumbar spine with and without the use of IV contrast. 20 cc's of gadolinium contrast was administered. FINDINGS: The study assumes the presence of 5 lumbar-type, non-rib bearing vertebral bodies. There is height loss of T11 vertebral body which is new compared to 02/04/2017. Otherwise the lumbar vertebral bodies are normal in height. There is subtle increased STIR signal within the T11 vertebral body which demonstrates abnormal enhancement. In addition, there is low signal involving the inferior endplate of T11. Slightly increased signal involving the T11 interspinous ligament is also appreciated. No evidence of acute fracture or focal subluxation. There is grade 2 anterolisthesis of L5 on S1 measuring 11 mm. The conus terminates appropriately. Review of the paraspinal soft tissues demonstrates no specific abnormality. No enhancing paraspinal mass is seen. No enhancing intrathecal abnormalities are seen. The included lower thoracic intervertebral disk spaces are unremarkable. L1-2: Unremarkable L2-3: There is a tiny disc bulge without evidence of stenosis. L3-4: There is a tiny disc bulge without evidence of stenosis. L4-5: There is a small disc bulge without significant central canal stenosis. There is moderate left and mild to moderate right foraminal stenosis. L5-S1: Grade 2 anterolisthesis of L5 on S1 measuring 11 mm resulting in uncovering of intervertebral disc. There is no significant central canal stenosis however there is moderate to severe right and moderate left foraminal stenosis. IMPRESSION: Signal alteration with abnormal enhancement and vhrg-[id number]-ggsbbqcz vertebral body height loss suspicious for osteomyelitis, correlate clinically. There is intervertebral disc height loss is well. Pathologic fracture is not excluded. Grade 2 anterolisthesis of L5 on S1 resulting in foraminal stenosis detailed above. Motion artifacts. Dictated By: Awais Guevara MD Dictated Date/Time: 03/22/17 1322 Signed By: Awais Guevara MD, MD Signed Date/Time: 03/22/17 1342 Transcribed Date/Time: 03/22/17 1339 [facility] 3RD PRESSMAN CALL-FAXon 017 CALL OR FAX: CALLED Normal [facility] Comment on above: Performed By: #### C REAT-PRERNA, SEC CALL ####Main Lab - [id number] [place] [address] CALLED TO: ALEIDA-RAKEL [facility] Comment on above: Performed By: #### C REAT-EGFR, SEC CALL ####Main Lab - [id number] [place] [address] DATE / TIME: 03/22/17@1031 Normal [facility] Comment on above: Performed By: #### C REAT-EGFR, SEC CALL ####Main Lab - [id number] [place] [address] TEST CALLED: CREAT [facility] Comment on above: Performed By: #### C REAT-EGFR, SEC CALL ####Main Lab - [id number] [place] [address] WHO CALLED: ZULAY [facility] Comment on above: Performed By: #### C REAT-EGFR, SEC CALL ####Main Lab - [id number] [place] [address] BLOOD CULTUREon 02-25-2017 Bacteria culture NO GROWTH--PRELIMINA RY REPORT. NO GROWTH--PRELIMINARY REPORT. NO GROWTH--PRELIMINARY REPORT. NO GROWTH--PRELIMINARY REPORT. NO GROWTH--FINAL REPORT. Normal [facility] Comment on above: Order Comment: Site: not specified Performed By: #### 4 [id number] ####[facility] [place] [phone] Bacteria culture NO GROWTH--PRELIMINA RY REPORT. NO GROWTH--PRELIMINARY REPORT. NO GROWTH--PRELIMINARY REPORT. NO GROWTH--PRELIMINARY REPORT. NO GROWTH--FINAL REPORT. Normal [facility] Comment on above: Order Comment: Site: left wrist Performed By: #### 4 [id number] ####[facility] [phone] CBC WITH DIFFERENTIALon 01-29 ABSOLUTE MONO 0.8 10 3/uL High 0.2-0.6 [facility] Comment on above: Performed By: #### 4 [id number] ####[facility] [place] [phone] ABSOLUTE NEUT 11.1 10 3/uL High 2.4-6.6 [facility] Comment on above: Performed By: #### 4 [id number] ####[facility] [address] [phone] Basophils Auto #/vol (Bld) 0.0 10 3/uL Normal 0.0-0.1 [facility] Comment on above: Performed By: #### 4 [id number] ####[facility] [place], [place] [phone] Basophils/100 WBC Auto (Bld) 0.1 % Normal [facility] Comment on above: Performed By: #### 4 [id number] ####[facility] [place] [phone] Eosinophils 0.0 10 3/uL Low 0.1-0.3 [facility] Comment on above: Performed By: #### 4 [id number] ####[facility] [place] [phone] Eosinophils/100 leukocytes 0.0 % Normal [facility] Comment on above: Performed By: #### 4 [id number] ####[facility] [address] [phone] Erythrocyte distribution width Auto Ratio (RBC) 16.1 % High 11.5-14.5 [facility] Comment on above: Performed By: #### 4 [id number] ####[facility] [place] [phone] Erythrocytes (RBC) 3.07 x10 6/uL Low 3.60-5.20 [facility] Comment on above: Performed By: #### 4 [id number] ####[facility] [address] [phone] Hematocrit (HCT) 25.6 % Low 33.6-45.6 [facility] Comment on above: Performed By: #### 4 [id number] ####[facility] [place], [place] [phone] Hemoglobin mass conc (Bld) 8.2 g/dL Low 11.7-15.3 [facility] Comment on above: Performed By: #### 4 [id number] ####[facility] [address] [phone] Lymphocytes 1.4 10 3/uL Normal 1.2-3.3 [facility] Comment on above: Performed By: #### 4 [id number] ####[facility] [address] [phone] Lymphocytes/100 leukocytes 10.6 % Normal [facility] Comment on above: Performed By: #### 4 [id number] ####[facility] [address] [phone] MCH 26.7 pg Normal 26.0-34.0 [facility] Comment on above: Performed By: #### 4 [id number] ####[facility] [address] [phone] MCHC mass conc (RBC) 32.0 g/dL Normal 31.0-36.5 [facility] Comment on above: Performed By: #### 4 [id number] ####[facility] [address] [phone] MCV 83.4 fL Normal 83.0-103.0 [facility] Comment on above: Performed By: #### 4 [id number] ####[facility] [address] [phone] Monocytes/100 leukocytes 6.0 % Normal [facility] Comment on above: Performed By: #### 4 [id number] ####[facility] [address] [phone] Neutrophils/100 leukocytes 83.3 % Normal [facility] Comment on above: Performed By: #### 4 [id number] ####[facility] [address] [phone] Platelets 607.0 x10 3/uL High 150.0-440. 0 [facility] Comment on above: Performed By: #### 4 [id number] ####[facility] [address] [phone] WBC (Leukocytes) 13.3 x10 3/uL High 4.0-11.0 [facility] Comment on above: Performed By: #### 4 [id number] ####[facility] [address] [phone] CHEM 802-25-2017 Calcium 9.5 mg/dL Normal 8.4-10.4 [facility] Comment on above: Performed By: #### 4 [id number] ####[facility] [address] [phone] Glucose mass conc 108 mg/dL High 65-100 [facility] Comment on above: Performed By: #### 4 [id number] ####[facility] [address] [phone] CO2 20 mmol/L Low 22-30 [facility] Comment on above: Performed By: #### 4 [id number] ####[facility] [address] [phone] Urea nitrogen 19 mg/dL Normal 8-20 [facility] Comment on above: Performed By: #### 4 [id number] ####[address] [phone] Creatinine 0.74 mg/dL Normal 0.52-1.04 [facility] Comment on above: Performed By: #### 4 [id number] ####[address] [phone] Chloride 106 mmol/L Normal 96-109 [facility] Comment on above: Performed By: #### 4 [id number] ####[facility] [address] [address] [phone] Potassium molar conc 4.6 mmol/L Normal 3.6-5.1 [facility] Comment on above: Performed By: #### 4 [id number] ####[facility] [address] [place], [place] [phone] Sodium 139 mmol/L Normal 135-147 [facility] Comment on above: Performed By: #### 4 [id number] ####[facility] [place], [place] [phone] CRPon 02-25-2017 C reactive protein (CRP) 43.0 mg/L High 0.0-9.9 [facility] Comment on above: Performed By: #### 4 [id number] ####[facility] [place], [place] [phone] Consultson 02-25-2017 HIM IP Note OR Channeler Runner Normal [facility] EMERGENCY ROOM NOTEon 2016 EMERGENCY ROOM NOTE [address] [place] [address] EMERGENCY ROOM NOTE : [id number] Signed Name: BLAS LUJAN MRUN: [id number] : 1960 Loc: ED Age / Sex: 56/ F Adm Status: DEP ER Adm Date:02/25/17 Room/Bed: HISTORY OF PRESENT ILLNESS: Ms. Lujan is a 56-year-old pleasant female patient who presented with painful swelling in her left shoulder. The patient stated that she fell down 2 weeks ago and then started to have swelling in the left shoulder. She went to her primary physician on Tuesday, which is 2 days ago, and aspiration of the synovial fluid was performed and blood test was done. The synovial fluid results are showing cell count, synovial, with crystals, color of fluid is yellow. The fluid is cloudy and there is decreased synovial cells, about 23,030, RBCs of 24,000, poly is 89, lymphocytes 5, and macrophages 6. Calcium pyrophosate crystals are seen. Gram-stain results; many white blood cells and no organism. Body fluid culture is pending. Her doctor diagnosed her to have septic joint and referred her to the ER. PHYSICAL EXAMINATION: The patient said that she has some chills and severe pain, but her examination did not show a high fever. Her TEMP was 98.5 and her pulse is 88/MIN, respiratory rate 18, BP 124/82, O2 SAT 98%. Her left shoulder is swollen and tender. No limitation of movement. No redness. There is mild hotness. NEUROLOGIC EXAMINATION: Within normal. LUNGS: Normal. CARDIOVASCULAR SYSTEM: Showing S1 and S2 normal. ABDOMEN: Soft and lax. SKIN: No rashes or hives. Other LAB tests are showing white blood cells 14.8, Hgb 9, platelet count is 591. 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 There is possibility of infection going on, but with the presence of the crystals, the possibility is low. I discussed with Dr. Cruz, the orthopedic physician at [facility], and he recommended to send her to the ER for further evaluation. She is accepted by Dr. Whiteside, the ER physician. The reason why she was transferred there is because we do not have orthopedic or Infectious disease coverage. I spoke with Dr. Horton, and he recommended that we send her to another hospital, and the patient and her spouse decided they wanted to go [facility]. FINAL DIAGNOSIS: Monoarthritis, left shoulder joint arthritis, possible septic arthritis, possible crystal underlying degenerative arthritis. EXT JOB#: [id number] Dictated By: Harry Feliciano MD 02/26/17 17102/26/17 171 Dictated Date/Time: 02/25/17 1804 Transcribed Date/Time: 02/25/17 1851 Normal [facility] GFRon 02-25-2017 eGFR (MDRD) mL/min/{1.73_m2} Normal [facility] Comment on above: Result Comment: To e stimate the GFR for Americans, multiply the resultprovided by 1.21. Population mean GFR = 93 ml/min/1.73 sq.m. for ages 50-59 yrsFive stages of CKD and GFR for each stage:Stage 1 GFR >=90Stage 2 GFR 60-89Stage 3 GFR 30-59Stage 4 GFR 15-29Stage 5 GFR <15 Performed By: #### G FR1 ####[facility] [address] [phone] SED RATEon 02-25-2017 SED RATE >100 High 0-[address] [facility] Comment on above: Performed By: #### 4 [id number] ####[facility] [address] [phone] URINALYSISon 02-25-2017 Bilirubin Ql (U) Negative Normal Negative [facility] Comment on above: Performed By: #### 4 [id number] ####[facility] [address] [phone] CULTURE NOT INDICATED Normal [facility] Comment on above: Performed By: #### 4 [id number] ####[address] [phone] LEUKOESTERASE Negative Normal Negative [facility] Comment on above: Performed By: #### 4 [id number] ####[address] [phone] MUCOUS-URINE Rare Normal [facility] Comment on above: Performed By: #### 4 [id number] ####[address] [phone] OCCULT BLOOD Negative Normal Negative [facility] Comment on above: Performed By: #### 4 [id number] ####[address] [phone] Urine, appearance Clear Normal [facility] Comment on above: Performed By: #### 4 [id number] ####[address] [phone] Urine, color Yellow Normal [facility] Comment on above: Performed By: #### 4 [id number] ####[address] [phone] Urine, erythrocytes in sediment by area /[HPF] Normal 0-[address] [facility] Comment on above: Performed By: #### 4 [id number] ####[address] [phone] Urine, glucose presence Negative Normal Negative [facility] Comment on above: Performed By: #### 4 [id number] ####[address] [phone] Urine, ketones presence Negative Normal Negative [facility] Comment on above: Performed By: #### 4 [id number] ####[address] [phone] Urine, leukocytes in sedmiment 0 /[HPF] Normal 0-5 [facility] Comment on above: Performed By: #### 4 [id number] ####[address] [phone] Urine, nitrite presence Negative Normal Negative [facility] Comment on above: Performed By: #### 4 [id number] ####[address] [phone] Urine, pH 7.0 [pH] Normal [facility] Comment on above: Performed By: #### 4 [id number] ####[address] [phone] Urine, protein presence Negative Normal Negative [facility] Comment on above: Performed By: #### 4 [id number] ####[address] [phone] Urine, specific gravity 1.013 Normal 1.003-1.02 9 [facility] Comment on above: Performed By: #### 4 [id number] ####[address] [phone] Urine, urobilinogen Negative Normal <2.0 [facility] Comment on above: Performed By: #### 4 [id number] ####[address] [phone] URINE SOURCE Catheterized Normal [facility] Comment on above: Performed By: #### 4 [id number] ####[address] [phone] XR CHEST PORTABLE (1 VIEW)on 02-25-2017 XR CHEST PORTABLE (1 VIEW) HISTORY: fever, assess for pneumoniaCOMPARISON: None availableFINDINGS: The cardiac silhouette is within normal limits for size. Tortuous and possibly ectatic aorta. There are no pleural effusions or focal areas of consolidation. IMPRESSION: There is no radiographic evidence for acute pulmonary process.The above report was generated using voice recognition software. It may contain grammatical, syntax and spelling errors. Normal [facility] XR SHOULDER LEFT MIN 2 VIEWS (ROUTINE)on 02-25-2017 BMI (Body Mass Index) XR SHOULDER LEFT MIN 2 VIEWS (ROUTINE)HISTORY: pain, assess for bony pathologyCOMPARISON: NoneFINDINGS: 4 views are submitted. Mild degenerative changes of the glenohumeral joint including joint space narrowing, subchondral sclerosis and spurring. There is superior dislocation of the humeral head in relationship to the glenoid fossa.No evidence for acute fracture or dislocation is seen. No bone lesions or cortical erosions.IMPRESSION: Mild degenerative changes of the glenohumeral joint as above. No evidence for displaced acute fracture, dislocation or erosive arthropathy. If there is clinical concern for rotator cuff tear, further evaluation with MRI can be performed as clinically warranted.The above report was generated using voice recognition software. It may contain grammatical, syntax and spelling errors. Normal [facility] CATHETERIZATIONon 09-08-2016 CATHETERIZATION Ordered by an unspec ified provider. Invalid Interpretation Code [facility] Work Phone: Vital Signs Date Time Vital Sign Value Performing Clinician Facility 05-10-2025 14:07-0400 Body height 170.[address] Alex Chen MD Work Phone: [facility] 05-10-2025 14:07-0400 Body mass index (BMI) [Ratio] 20.3 kg/m2 Dr. Alex Chen MD Work Phone: [facility] 05-10-2025 14:07-0400 Body temperature 96.5 [degF] Dr. Alex Chen MD Work Phone: [facility] 05-10-2025 14:07-0400 Body weight 58.[address] Alex Chen MD Work Phone: [facility] 05-10-2025 14:07-0400 Diastolic blood pressure 78 mm[Hg] Dr. Alex Chen MD Work Phone: [facility] 05-10-2025 14:07-0400 Heart rate 81 /min Dr. Alex Chen MD Work Phone: [facility] 05-10-2025 14:07-0400 Respiratory rate 16 /min Dr. Alex Chen MD Work Phone: [facility] 05-10-2025 14:07-0400 SaO2% (BldA) [Mass fraction] 94 % Dr. Alex Chen MD Work Phone: [facility] 05-10-2025 14:07-0400 Systolic blood pressure 118 mm[Hg] Dr. Alex Chen MD Work Phone: [facility] 04-29-2023 00:24-0400 Heart rate 78 /min [facility] 04-29-2023 00:24-0400 Respiratory rate 16 /min [facility] 04-29-2023 00:24-0400 SaO2% (BldA) [Mass fraction] 97 % [facility] 04-28-2023 21:59-0400 Body mass index (BMI) [Ratio] 15.3 kg/m2 [facility] 04-28-2023 21:59-0400 Body weight 44.3 kg [facility] 04-28-2023 21:07-0400 Body height 170.18 cm [facility] 04-28-2023 21:07-0400 Body temperature 98.7 [degF] [facility] 04-28-2023 21:07-0400 Diastolic blood pressure 75 mm[Hg] [facility] 04-28-2023 21:07-0400 Systolic blood pressure 109 mm[Hg] [facility] 04-11-2023 09:13-0400 Blood Pressure Location OLMAN VALENZUELA MD [facility] 04-11-2023 09:13-0400 Blood Pressure Method OLMAN VALENZUELA MD [facility] 04-11-2023 09:13-0400 Body temperature 97.88 [degF] OLMAN VALENZUELA MD [facility] 04-11-2023 09:13-0400 Diastolic Blood Pressure Non-Invasive 98 1 OLMAN VALENZUELA MD [facility] 04-11-2023 09:13-0400 Heart rate 72 /min OLMAN VALENZUELA MD [facility] 04-11-2023 09:13-0400 Respiratory rate 18 /min OLMAN VALENZUELA MD [facility] 04-11-2023 09:13-0400 Systolic Blood Pressure Non-Invasive 163 1 OLMAN VALENZUELA MD [facility] 03-27-2023 19:37-0400 Diastolic Blood Pressure Non-Invasive [address] PERNELL ESCAMILLA DO [facility] 03-27-2023 19:37-0400 Heart rate 60 /min DR PERNELL ESCAMILLA DO [facility] 03-27-2023 19:37-0400 Reason For Taking VItal Signs DR PERNELL ESCAMILLA DO [facility] 03-27-2023 19:37-0400 Respiratory rate 18 /min DR PERNELL ESCAMILLA DO [facility] 03-27-2023 19:37-0400 Systolic Blood Pressure Non-Invasive [address] PERNELL ESCAMILLA DO [facility] 03-27-2023 17:53-0400 Body temperature 97.7 [degF] DR PERNELL ESCAMILLA DO [facility] 03-27-2023 17:53-0400 Diastolic Blood Pressure Non-Invasive [address] PERNELL ESCAMILLA DO [facility] 03-27-2023 17:53-0400 Heart rate 68 /min DR PERNELL ESCAMILLA DO [facility] 03-27-2023 17:53-0400 Respiratory rate 18 /min DR PERNELL ESCAMILLA DO [facility] 03-27-2023 17:53-0400 Systolic Blood Pressure Non-Invasive [address] PERNELL ESCAMILLA DO [facility] 09-09-2022 13:21-0500 Body temperature 96.6 [degF] Dr. Alex Chen Work Phone: [facility] 09-09-2022 13:21-0500 Body weight 66.[address] Alex Chen Work Phone: [facility] 09-09-2022 13:21-0500 Diastolic blood pressure 106 mm[Hg] Dr. Alex Chen Work Phone: [facility] 09-09-2022 13:21-0500 Heart rate 85 /min Dr. Alex Chen Work Phone: [facility] 09-09-2022 13:21-0500 Respiratory rate 18 /min Dr. Alex Chen Work Phone: [facility] 09-09-2022 13:21-0500 SaO2% (BldA) [Mass fraction] 96 % Dr. Alex Chen Work Phone: [facility] 09-09-2022 13:21-0500 Systolic blood pressure 144 mm[Hg] Dr. Alex Chen Work Phone: [facility] 01-21-2022 13:03-0400 Body temperature 97.7 [degF] Dr. Alex Chen Work Phone: [facility] Work Phone: 01-21-2022 13:03-0400 Body weight 64.[address] Alex Chen Work Phone: [facility] Work Phone: 01-21-2022 13:03-0400 Diastolic blood pressure 88 mm[Hg] Dr. Alex Chen Work Phone: [facility] Work Phone: 01-21-2022 13:03-0400 Heart rate 67 /min Dr. Alex Chen Work Phone: [facility] Work Phone: 01-21-2022 13:03-0400 Respiratory rate 16 /min Dr. Alex Chen Work Phone: [facility] Work Phone: 01-21-2022 13:03-0400 SaO2% (BldA) [Mass fraction] 97 % Dr. Alex Chen Work Phone: [facility] Work Phone: 01-21-2022 13:03-0400 Systolic blood pressure 124 mm[Hg] Dr. Alex Chen Work Phone: [facility] Work Phone: 12-13-2017 10:52-0400 BMI (Body Mass Index) 20.73 kg/m2 [facility] 12-13-2017 10:52-0400 BP Diastolic 97 mm[Hg] [facility] 12-13-2017 10:52-0400 BP Systolic 143 mm[Hg] [facility] 12-13-2017 10:52-0400 Height 160 cm Billfreedom Carrionom [facility] 12-13-2017 10:52-0400 Pulse (Heart Rate) 80 /min Bill Nunda [facility] 12-13-2017 10:52-0400 Pulse Oximetry 98 % Bill Carrionom [facility] 12-13-2017 10:52-0400 Weight 53.07 kg Bill Carrionom [facility] 11-18-2017 10:22-0400 BMI (Body Mass Index) 20.73 kg/m2 Yumi Will [facility] 11-18-2017 10:22-0400 BP Diastolic 75 mm[Hg] Yumi Will [facility] 11-18-2017 10:22-0400 BP Systolic 118 mm[Hg] Yumi Will [facility] 11-18-2017 10:22-0400 Height 160 cm Yumi Will [facility] 11-18-2017 10:22-0400 Pulse (Heart Rate) 83 /min Yumi Will [facility] 11-18-2017 10:22-0400 Pulse Oximetry 98 % Yumi [facility] 11-18-2017 10:22-0400 Weight 53.07 kg Yumi Will [facility] 10-18-2017 09:00-0500 BMI (Body Mass Index) 22.5 kg/m2 Bill Carrionom [facility] 10-18-2017 09:00-0500 BP Diastolic 78 mm[Hg] Billfreedom Carrionom [facility] 10-18-2017 09:00-0500 BP Systolic 119 mm[Hg] Billfreedom Carrionom [facility] 10-18-2017 09:00-0500 Height 160 cm Billfreedom Carrionom [facility] 10-18-2017 09:00-0500 Pulse (Heart Rate) 72 /min Billfreedom Carrionom [facility] 10-18-2017 09:00-0500 Pulse Oximetry 99 % Bill Carrionom [facility] 10-18-2017 09:00-0500 Weight 57.61 kg Billfreedom Carrionom [facility] 09-13-2017 13:45-0500 BMI (Body Mass Index) 21.61 kg/m2 Shea Moore [facility] Work Phone: 09-13-2017 13:45-0500 BP Diastolic 78 mm[Hg] Shea Cesar [facility] Work Phone: 09-13-2017 13:45-0500 BP Systolic 120 mm[Hg] Shea Cesar [facility] Work Phone: 09-13-2017 13:45-0500 Height 160 cm Shea Cesar [facility] Work Phone: 09-13-2017 13:45-0500 Pulse (Heart Rate) 78 /min Shea Cesar [facility] Work Phone: 09-13-2017 13:45-0500 Weight 55.34 kg Shea Cesar [facility] Work Phone: Encounters Encounter Date Encounter Type Care Provider Facility Start: 05-10-2025 End: 05-10-[address] Alex Chen MD -[facility] Work Phone: Start: 05-10-2025 End: 05-10-[address] Alex Chen MD Work Phone: -[facility] Start: 02-01-2025 End: 02-01-2025 Patient encounter procedure NINFA VAZQUEZ -[facility] Work Phone: Start: 02-01-2025 End: 02-01-[address] Alex Chen MD Work Phone: [facility] Work Phone: Start: 10-26-2024 ambulatory Efewongbe Oleghe Facili ty:[facility] Start: 10-01-2024 End: 10-01-2024 ambulatory Efewongbe Oleghe Facility:[facility] Start: 10-01-2024 End: 10-01-2024 ambulatory Efewhanoverbe Oleghe Facility:[facility] Start: 06-08-2024 End: 06-08-2024 ambulatory Efewongbe Oleghe Facility:[facility] Start: 01-04-[address] Alex Chen MD Work Phone: [facility] Start: 06-17-2023 End: 06-18-2023 ambulatory OPAL MEIER MD Facility:[facility] Start: 06-17-2023 End: 06-17-2023 Patient encounter procedure OPAL MEIER MD [facility] Start: 06-07-2023 End: 06-08-2023 ambulatory OPAL MEIER MD Facility:[facility] Start: 04-28-2023 End: 04-29-2023 Emergency department patient visit [facility]Emergency Department Work Phone: Start: 04-11-2023 End: 04-11-2023 Emergency department patient visit OLMAN VALENZUELA MD Facility:[facility] Start: 04-11-2023 End: 04-11-2023 Emergency department patient visit OLMAN VALENZUELA MD [facility] Start: 03-27-2023 End: 03-27-2023 Emergency department patient visit DR PERNELL ESCAMILLA DO Facility:[facility] Start: 03-27-2023 End: 03-27-2023 Emergency department patient visit DR PERNELL ESCAMILLA DO [facility] Start: 09-09-2022 End: 09-09-[address] Alex Chen Work Phone: [facility] Work Phone: Start: 09-09-2022 End: 09-09-[address] Alex Chen Work Phone: [facility] Start: 09-09-2022 End: 09-09-[address] Alex Chen Work Phone: [facility] Start: 07-20-2022 End: 07-20-2022 ambulatory [facility] Work Phone: Start: 07-20-2022 End: 07-20-2022 Patient encounter procedure [facility]-Outpatient Breast Imaging Start: 01-21-[address] Alex Chen Work Phone: [facility] Start: 01-21-2022 End: 01-21-2022 Encounter for general adult medical examination without abnormal findings Dr. Alex Chen Work Phone: [facility] Start: 01-21-2022 End: 01-21-[address] Alex Chen Work Phone: [facility] Start: 10-30-2020 End: 10-30-2020 Orders Only Nicolasa Luisa Catherine Work Phone: [facility] Start: 12-14-2017 Ambulatory Zen Bermudez Work Phone: [facility] Start: 12-13-2017 End: 12-13-2017 [facility] Start: 12-13-2017 End: 12-13-2017 Postop follow-up visit Bill Garibay Work Phone: [facility] Start: 12-12-2017 End: 12-12-2017 Ambulatory Carmen Ford Facility:[facility] Start: 12-02-2017 [facility] Start: 11-18-2017 End: 11-18-2017 Ambulatory YUMI CASTILLO [facility] Start: 11-18-2017 Postop follow-up visit Yumi Castillo Work Phone: [facility] Start: 11-07-2017 Ambulatory MONISHA CABRAL [facility] Start: 11-02-2017 End: 11-07-2017 [facility] Start: 11-02-2017 End: 11-02-2017 Ambulatory [facility] Start: 11-01-2017 End: 11-02-2017 Ambulatory BILL GARIBAY [facility] Start: 11-01-2017 End: 11-01-2017 Ambulatory Bill Garibay Work Phone: [facility] Start: 10-18-2017 End: 10-18-2017 Ambulatory Gayathriklarissa Barrios [facility] Start: 10-18-2017 Office/outpatient visit, new, level 3 Bill Garibay Work Phone: [facility] Start: 10-04-2017 Ambulatory Carmen A Brauch Facili ty:[facility] Start: 10-02-2017 End: 10-05-2017 Evaluation and management of inpatient Malachi Byers Facility:[facility] Start: 09-29-2017 Ambulatory Carmen A Brauch Facili ty:[facility] Start: 09-27-2017 End: 09-27-2017 Ambulatory Carmen A Brauch Facility:[facility] Start: 09-25-2017 End: 09-25-2017 Emergency department patient visit Diego Youngblood Facility:[facility] Start: 09-13-2017 End: 09-13-2017 Ambulatory SHEA CESAR [facility] Start: 09-13-2017 Office/outpatient visit, new, level 4 Shea Cesar Work Phone: [facility] Start: 09-12-2017 End: 09-12-2017 Ambulatory Shea Cesar Facility:[facility] Start: 08-23-2017 Evaluation and management of inpatient UNKNOWN PROVIDER [facility] Start: 08-14-2017 End: 08-17-2017 Evaluation and management of inpatient Tucker Horton Facility:[facility] Start: 07-29-2017 End: 07-30-2017 Ambulatory ANDRESSA DELACRUZ [facility] Start: 07-11-2017 Ambulatory Carmen A Brauch Facili ty:[facility] Start: 07-08-2017 Ambulatory Carmen A Brauch Facili ty:[facility] Start: 06-09-2017 Ambulatory Carmen A Brauch Facili ty:[facility] Start: 05-27-2017 End: 05-28-2017 Ambulatory ANDRESSA DELACRUZ [facility] Start: 05-25-2017 Ambulatory Giuseppe Wiley MikiPanfilo Facil ity:[facility] Start: 04-28-2017 End: 05-02-2017 Ambulatory ANDRESSA DELACRUZ [facility] Start: 04-22-2017 Ambulatory Andressa Alas [facility] Start: 04-14-2017 End: 04-14-2017 Ambulatory Carmen A Brauch Facility:[facility] Start: 03-24-2017 End: 03-31-2017 Evaluation and management of inpatient Carmen A Brauch Facility:[facility] Start: 03-22-2017 End: 03-22-2017 Ambulatory Carmen A Brauch Facility:[facility] Start: 02-25-2017 End: 02-25-2017 Emergency department patient visit [facility] Start: 02-25-2017 End: 02-25-2017 Emergency department patient visit Carmen A Brauch Facility:[facility] Procedures Date Procedure Procedure Detail Performing Clinician Start: 04-28-2023 Plain chest X-ray Start: 07-20-2022 Screening mammography Start: 11-01-2017 End: 11-01-2017 Breathing capacity test Bill Monk shania Work Phone: Start: 08-16-2017 End: 08-16-2017 Electrocardiogram Provider Not In Syst em Cardiac valve struct ure (body structure) DR PERNELL ESCAMILLA DO Upper limb structure (body structure) DR PERNELL ESCAMILLA DO Plan of Treatment Date Care Activity Detail Author Start: 09-09-2022 Patient referral [facility] Work Phone: Start: 01-21-2022 Patient referral [facility] Work Phone: Start: 04-29-2020 Influenza vaccination given Sequential Influenza Vaccine (#1) [facility] Start: 01-30-2018 End: 01-30-2018 Ambulatory 01/30/2018 Office Visit Cardiology Mary Benites, DIRECT SUPPORT PROFESSIONAL [address] [place] [address] [phone] [facility] Physicians Start: 12-13-2017 Ambulatory 12/13/2017 Follow-Up Cardiothoracic Surgery Bill Garibay MD [address] [facility] [address] [place] [address] [phone] [facility] Heart, Lung & Vascular Surgeons Start: 11-02-2017 Ambulatory [facility] Start: 11-01-2017 Ambulatory 11/01/2017 Clinical Support Pre-Admission Testing [facility] Start: 04-29-2017 Influenza vaccination SEQUENTIAL INFLUENZA VACCINE (#1) [facility] Work Phone: Start: 2009 Administration of herpes zoster vaccine Zoster Vaccines (1 of 2) [facility] Start: 2009 Screening for malignant neoplasm of colon [facility] Start: 1977 Hepatitis C antibody, confirmatory test Hepatitis C Screening [facility] Start: 1975 COVID-19 Vaccine (1 of 2) COVID-19 Vaccine (1 of 2) [facility] Start: 1974 HIV screening HIV Screening [facility] Start: 1962 History and physical examination, annual for health maintenance Wellness Visit [facility] Start: 1959 Screening mammography Mammogram [facility] Start: 1959 HEPATITIS C SCREENING HEPATITIS C SCREENING [facility] Work Phone: Start: 1959 Screening colonoscopy COLONOSCOPY [facility] Work Phone: Start: 1959 End: 1959 Screening for malignant neoplasm of cervix PAP SMEAR [facility] Work Phone: Start: 1959 End: 1959 Tetanus vaccination [facility] Work Phone: Patient Education ED Barbara Ski n Infection (Adult) [facility] Work Phone: Patient referral [facility] Work Phone: XR Cervical spine 2 or 3 Views [facility] XR Spine Lumbar and Sacrum GE [address] [facility] Immunizations Immunization Date Immunization Notes Care Provider Fa cility 09-09-2022 influenza, injectabl e, quadrivalent, preservative free Dr. Alex Chen MD Work Phone: [facility] 09-09-2022 influenza, seasonal, injectable Dr. Alex Chen Work Phone: [facility] 04-29-2020 pneumococcal polysaccharide vaccine, [address] Alex Chen Work Phone: [facility] 04-29-2020 pneumococcal vaccine , unspecified formulation Dr. Alex Chen Work Phone: [facility] Work Phone: 05-17-2019 Influenza, injectabl e, [place]in [place] Canine Kidney, preservative free, quadrivalent Dr. Alex Chen MD Work Phone: [facility] 04-18-2018 influenza, injectabl e, quadrivalent, preservative free Dr. Alex Chen MD Work Phone: [facility] 04-18-2018 influenza, seasonal, injectable Dr. Alex Chen Work Phone: [facility] 04-07-2017 influenza, injectabl e, quadrivalent, preservative free Dr. Alex Chen MD Work Phone: [facility] 04-21-2015 influenza, injectabl e, quadrivalent, preservative free Dr. Alex Chen MD Work Phone: [facility] Payers Date Payer Category Payer Self-pay [id number] 2023 Unknown [id number] 2023 Medicaid [id number] 2023 Unknown [id number] 2017 Medicaid [place]ICA[place] [id number] 2017-Present [id number] 2006 Medicare [id number] 2006 Medicare MEDICARE MEDICAR E PART A & B [id number] 2006-Present [place] [id number] 1959 Unknown [id number] 1959 Unknown [id number] 1959 Unknown [id number] 1959 Unknown [id number] Medicaid [id number] Medicare [id number] Medicare Medicare [id number] Medicare [id number] Unknown [id number] Unknown [id number] Unknown [id number] Unknown [id number] Unknown [id number] Unknown [id number] Unknown [id number] Social History Date Type Detail Facility Start: 12-13-2017 End: 08-20-2024 Tobacco smoking status NHIS Never smoker [facility] Sex Assigned At Not on file [employer] Work Phone: Start: 12-13-2017 Tobacco use and exposure Never used [facility] Start: 12-13-2017 Alcohol intake Current drinke r of alcohol (finding) [facility] Start: 09-13-2017 Alcohol Comment occasional [facility] Start: 01-21-2022 End: 04-28-2023 Tobacco smoking status NCIS Unknown if ever smoked [facility] Start: 10-14-2020 Secondhand [facility] Start: 1960 Sex Assigned At Female [facility] Medical Equipment Procedure Code Equipment Code Equipment Original Text Equipment Identifier Dates Kit Mini Device Cor-Knot - [id number] Start: 11-02-2017 System 45mm Aicha Exclusion Flex Atriclip - [id number] Start: 11-02-2017 Mosaic Porcine Heart Valve Start: 11-02-2017 Kit Mini Device Cor-Knot - [id number] Start: 11-02-2017 System 45mm Aicha Exclusion Flex Atriclip - [id number] Start: 11-02-2017 Mosaic Porcine Heart Valve Start: 11-02-2017 Kit Mini Device Cor-Knot - [id number] Start: 11-02-2017 System 45mm Aicha Exclusion Flex Atriclip - [id number] Start: 11-02-2017 Mosaic Porcine Heart Valve Start: 11-02-2017 Kit Mini Device Cor-Knot - [id number] Start: 11-02-2017 Comment on above: Description: SUPPLY ONLY, NOT AN IMPLANT System 45mm Aicha Exclusion Flex Atriclip - [id number] Start: 11-02-2017 Comment on above: Description: CHARGED FOR PER PERFUSION Mosaic Porcine Heart Valve [id number] Start: 11-02-2017 Comment on above: Description: IMPLANT ED MITRAL VALVE HEART. CHARGED FOR PER PERFUSION. TEMPERATURE CHECK VERIFIED AND VALID Functional Status Date Assessment Result Facility 04-11-2023 Functional Status ID band on, Allergy Band on, Call device within reach, Bed in low position, Wheels locked, Upper/Half-Length side-rails up [facility] 03-27-2023 Functional Status Standard Safet y ID band on, Call device within reach, Bed in low position, Wheels locked, Bedside Cart Locked, Safety level maintained [facility] Mental Status Date Assessment Result Facility 04-28-2023 Cognitive function Level Of Cons ciousness Awake;Alert;Appropriate;Follow s Commands [facility] Work Phone: 04-11-2023 Mental Status Oriented x 4 [facility] 03-27-2023 Mental Status Oriented x 4 [facility] 03-27-2023 Mental Status [facility] Clinical Notes 03-27-2023 to 02-01-2025 Note Date & Type Note Facility 02-01-2025 Evaluation note Diagnosis Onset Date Resolution Osteoporosis chronic February 01 10:41am [facility] Work Phone: [phone] Hospital Discharge instructions Patient Education 04/11/2023 09:22:56 Fungal Skin Infection (Tinea) Fungal Skin Infection (Tinea) A fungal infection occurs when too much fungus grows on or in the body. Fungus normally lives on the skin in small amounts and does not cause harm. But when too much grows on the skin, it causes an infection. This is also known as tinea. Fungal skin infections are common and not usually serious. The infection often starts as a small red area the size of a pea. The skin may turn dry and flaky. The area may itch. As the fungus grows, it spreads out in a red skull valley. Because of how it looks, fungal skin infection is often called ringworm, but it is not caused by a worm. Fungal skin infections can occur on many parts of the body. They can grow on the head, chest, arms, or legs. They can occuron the buttocks. On the feet, fungal infection is known as athlete s foot. It causes itchy, sometimes painful sores between the toes and the bottom or sides of the feet. In the groin, the rash is called jock itch. People with weak immune systems can get a fungal infection more easily. This includes people with diabetes or HIV, or who are being treated for cancer. In these cases, the fungal infection can spreadand cause severe illness. Fungal infections are also more common in people who are overweight. In most cases, treatment is done with antifungal cream or ointment. If the infection is on your scalp, you may take oral medicine. In some cases, a tiny piece of the skin (biopsy) may be taken. This is so it can be tested in a lab. Common fungal infections are treated with creams on the skin or oral medicine. Home care Follow all instructions when using antifungal cream or ointment on your skin. Your healthcare provider may advise using cornstarch powder to keep your skin dry or petroleum jelly to provide a barrier. General care: If you were prescribed an oral medicine, read the patient information. Talk with your healthcare provider about the risks and side effects. Let your skin dry completely after bathing. Carefully dry your feet and between your toes. Dress in loose cotton clothing. Don t scratch the affected area. This can delay healing and may spread the infection. It can also cause a bacterial infection. Keep your skin clean, but don t wash the skin too much. This can irritate your skin. Keep in mind that it may take a week before the fungus starts to go away. It can take 2 to 4 weeks to fully clear. To prevent it from coming back, use the medicine until the rash is all gone. Follow-up care Follow up with your healthcare provider if the rash does not get better after 10 days of treatment.Also follow up if the rash spreads to other parts of your body. When to seek medical advice Call your healthcare provider right away if any of these occur: Fever of 100.4 F (38 C) or higher Redness or swelling that gets worse Pain that gets worse Foul-smelling fluid leaking from the skin [phone] [employer]. [address] [place] [address], [place] [address]. All rights reserved. This information is not intended as a substitute for professional medical care. Always follow yourhealthcare professional's instructions. Follow Up Care 04/11/2023 09:05:17 With:LAEX CHEN MD Address: [address] [place] [address] [phone] When:2-4 days [facility] Jones 08-14-2023 Note Discharge Instructions Thank you for allowing [facility] to assist you with your healthcare needs. The following is importantdischarge information regarding your hospital visit. Diagnosis from Today's Visit Barbara infection Skin rash What to Do Next Instructions from Your Care Team No qualifying data available. Post Acute Orders No qualifying data available. You Need to Schedule the Following Appointments Follow Up with ALEX CHEN MD When Within 2-4 days Where: [address] [place] [phone] Allergies misc antibiotic Medications Please ask your primary doctor or pharmacist before taking any other medication not listed, including over the counter drugs, herbal medications, vitamins and or supplements as they may interact withyour home medications. What How Much When Instructions Last Dose New ketoconazole topical (ketoconazole 2% topical cream) 1 application Topical Once a day Duration: 14 Days Refills: 1 Printed Prescription Please take this list to your next doctor s visit. Bring all medications you take, including over the counter medications, herbals and other supplements with you to your doctor s visit. Patients and families are reminded to discard old lists and to update any records with all medication providers or retail pharmacies. Medication Leaflets ketoconazole topical (osmany toe KOE na zole) Micah, Ketoitz, Ynes, Nizoral A-D, Nizoral Topical What is the most important information I should know about ketoconazole topical? Follow all directions on your medicine label and package. Tell each of your healthcare providers about all your medical conditions, allergies, and all medicines you use. What is ketoconazole topical? Ketoconazole topical (for the skin) is an antifungal medicine used to treat infections such as athlete's foot, jock itch, ringworm, and seborrhea (dry, flaking skin or dandruff). Ketoconazole topical is also used to treat a fungal infection called pityriasis, which causes scalydiscolored patches on the skin of the neck, chest, arms, or legs. Ketoconazole topical may also be used for purposes not listed in this medication guide. What should I discuss with my healthcare provider before using ketoconazole topical? You should not use this medicine if you are allergic to ketoconazole. Ask a doctor or pharmacist if this medicine is safe to use if you have: asthma or a sulfite allergy; an allergic reaction to an antifungal medicine, such as clotrimazole, econazole, or miconazole. Ask a doctor before using this medicine if you are . You should not breast-feed while using ketoconazole topical. Always follow directions on the medicine label about using this medicine on a child. How should I apply ketoconazole topical? Use exactly as directed on the label, or as prescribed by your doctor. Using more of this medicine or applying it more often than prescribed will not make it work any faster, and may increase side effects. Do not take by mouth. Topical medicine is for use only on the skin. Do not use on open wounds or irritated skin. Rinse with water if this medicine gets in your eyes, nose, or mouth. Read and carefully follow any Instructions for Use provided with your medicine. Ask your doctor or pharmacist if you do not understand these instructions. Wash your hands before and after using this medicine. Clean and dry the skin before applying ketoconazole cream, foam, or gel. This medicine may be flammable. Do not use near high heat or open flame, or while smoking. Avoid heat or smoking until the medicine has completely dried on your skin. Ketoconazole shampoo is not for daily use. Allow at least 3 days to pass between uses. Use this medicine for the full prescribed length of time, even if your symptoms quickly improve. Skipping doses can increase your risk of infection that is resistant to medication. Call your doctor if your symptoms do not begin to improve after 2 to 4 weeks of treatment, or if your condition gets worse. Store ketoconazole topical at room temperature. Protect from light and do not refrigerate or freeze. What happens if I miss a dose? Use the medicine as soon as you can, but skip the missed dose if it is almost time for your next dose. Do not use two doses at one time. What happens if I overdose? An overdose of ketoconazole topical is not expected to be dangerous. Seek emergency medical attention or call the Poison Help line at if anyone has accidentally swallowed the medication. What should I avoid while using ketoconazole topical? Do not get this medicine in your eyes. If contact does occur, rinse with water. Avoid covering treated skin areas with tight-fitting, synthetic clothing (such as nylon or polyester) that doesn't allow air to circulate to your skin. If you are treating your feet, wear clean cotton socks and sandals or shoes that allow for air circulation. Keep your feet as dry as possible. You may need to avoid sunlight if you are treating pityriasis. Follow your doctor's instructions. Avoid using skin products that can cause irritation, such as harsh soaps, shampoos, hair coloring or permanent chemicals, hair removers or waxes, or skin products with alcohol, spices, astringents, or crow. Avoid using other medications on the areas you treat with ketoconazole topical unless your doctor tells you to. What are the possible side effects of ketoconazole topical? Get emergency medical help if you have signs of an allergic reaction: hives; difficult breathing; swelling of your face, lips, tongue, or throat. Call your doctor at once if you have: burning, stinging, or severe irritation after using this medicine; redness, pain, or oozing of treated skin; or shortness of breath. Common side effects may include: thinning hair; changes in the color or texture of your hair; dry skin; or mild itching. This is not a complete list of side effects and others may occur. Call your doctor for medical advice about side effects. You may report side effects to FDA at 6-058-DFJ-7165. What other drugs will affect ketoconazole topical? Medicine used on the skin is not likely to be affected by other drugs you use. But many drugs can interact with each other. Tell each of your healthcare providers about all medicines you use, including prescription and nino-stl-unpxuri medicines, vitamins, and herbal products. Where can I get more information? Your pharmacist can provide more information about ketoconazole topical. Remember, keep this and all other medicines out of the reach of children, never share your medicines with others, and use this medication only for the indication prescribed. Every effort has been made to ensure that the information provided by [employer]') is accurate, up-to-date, and complete, but no guarantee is made to that effect. Drug information contained herein may be time sensitive. [employer] information has been compiled for use by healthcare practitioners and consumers in the [place] and therefore [employer] does not warrant that uses outside of the [place] are appropriate, unless specifically indicated otherwise. [employer] drug information does not endorse drugs, diagnose patients or recommend therapy. [employer] drug information isan informational resource designed to assist licensed healthcare practitioners in caring for their p atients and/or to serve consumers viewing this service as a supplement to, and not a substitute for, the expertise, skill, knowledge and judgment of healthcare practitioners. The absence of a warningfor a given drug or drug combination in no way should be construed to indicate that the drug or drug combination is safe, effective or appropriate for any given patient. [employer] does not assume any responsibility for any aspect of healthcare administered with the aid of information [employer] provides. The information contained herein is not intended to cover all possible uses, directions, precautions, warnings, drug interactions, allergic reactions, or adverse effects. If you have questions about the drugs you are taking, check with your doctor, nurse or pharmacist. Copyright 0431-0290 [employer] Version: 7.01. Revision Date: 03/31/2023. Education Materials Fungal Skin Infection (Tinea) A fungal infection occurs when too much fungus grows on or in the body. Fungus normally lives on the skin in small amounts and does not cause harm. But when too much grows on the skin, it causes an infection. This is also known as tinea. Fungal skin infections are common and not usually serious. The infection often starts as a small red area the size of a pea. The skin may turn dry and flaky. The area may itch. As the fungus grows, it spreads out in a red skull valley. Because of how it looks, fungal skin infection is often called ringworm, but it is not caused by a worm. Fungal skin infections can occur on many parts of the body. They can grow on the head, chest, arms, or legs. They can occuron the buttocks. On the feet, fungal infection is known as athlete s foot. It causes itchy, sometimes painful sores between the toes and the bottom or sides of the feet. In the groin, the rash is called jock itch. People with weak immune systems can get a fungal infection more easily. This includes people with diabetes or HIV, or who are being treated for cancer. In these cases, the fungal infection can spreadand cause severe illness. Fungal infections are also more common in people who are overweight. In most cases, treatment is done with antifungal cream or ointment. If the infection is on your scalp, you may take oral medicine. In some cases, a tiny piece of the skin (biopsy) may be taken. This is so it can be tested in a lab. Common fungal infections are treated with creams on the skin or oral medicine. Home care Follow all instructions when using antifungal cream or ointment on your skin. Your healthcare provider may advise using cornstarch powder to keep your skin dry or petroleum jelly to provide a barrier. General care: If you were prescribed an oral medicine, read the patient information. Talk with your healthcare provider about the risks and side effects. Let your skin dry completely after bathing. Carefully dry your feet and between your toes. Dress in loose cotton clothing. Don t scratch the affected area. This can delay healing and may spread the infection. It can also cause a bacterial infection. Keep your skin clean, but don t wash the skin too much. This can irritate your skin. Keep in mind that it may take a week before the fungus starts to go away. It can take 2 to 4 weeks to fully clear. To prevent it from coming back, use the medicine until the rash is all gone. Follow-up care Follow up with your healthcare provider if the rash does not get better after 10 days of treatment.Also follow up if the rash spreads to other parts of your body. When to seek medical advice Call your healthcare provider right away if any of these occur: Fever of 100.4 F (38 C) or higher Redness or swelling that gets worse Pain that gets worse Foul-smelling fluid leaking from the skin [phone] [employer]. [address] [place] [address], [place] [address]. All rights reserved. This information is not intended as a substitute for professional medical care. Always follow yourhealthcare professional's instructions. Additional Information VACCINATE! IT SAVES LIVES! Members of the community who have not yet received the COVID-19 vaccine and would like to receive it can visit one of [facility] vaccine clinics. There are many vaccine clinic locations within the [facility]. For locations and available times, please visit www.[email or web address].[facility]avirus.[place].gov/. It is important to note that some COVID mobile vaccine clinics are held outdoors and may be canceled in rainy or stormy conditions. To learn more about pediatric vaccinations (ages 5-11), we invite you to visit the [facility] webpage. https://www.[facility].org/pages/0965-Rrbqu-Fjwxlfncokp-Mfbdbxjaag-Ldapr-Zmw stions.htmlTo learn more about the COVID-19 vaccine, we invite you to visit the CDC website for a list of frequently asked questions. https://www.cdc.gov/coronavirus/2019-ncov/vaccines/faq.html [facility] Patient Portal Access Instructions: Stay connected with your healthcare team and access your personal medical information anytime with the [facility] Patient Portal. If you would like a full copy of your medical records please contact the [facility] Medical Records Department Tuesday through Tuesday between 8a.m. and 4:30p.m. Please follow the directions below to access the portal: 1.Access the email account you provided upon registration to the hospital.2.Look for an invitation email from [facility].3.Open the email and access the invitation link: Accept Invitation to [facility]4.Fill in the required uriarte to create your account. Sign into [email or web address] with your username and password that you created in the above steps to stay up to date. You can then view a summary of results, a summary of your visits, and the ability to download your summaries to your computer or send the information securely to a physician. Remember that your healthcare information is confidential, so carefully consider who you will allow to register on the [facility] Patient Portal for access to your information. You can also access the [facility] Patient Portal on the Mapiliary kathe. Simply click on Health Records under [employer] and then click on the [facility] logo. HOW TO SAFELY DISPOSE OF PRESCRIPTION MEDICATIONS Please use one of the following methods to safely dispose of your unused medications. 1.Use a drug disposal kit: the drug disposal pouch allows you to safely discard your old and unuseddrugs. Ask your nurse to give you one when you are discharged.2.Visit a local take-back location: Many local pharmacies and police departments have programs that collect old and unwanted prescriptiondrugs. Call your local pharmacy or go to http://BAUNAT.SurDoc/1X1Nm6f to find one close to you.3.Make use of household items: Use cat litter or old coffee grounds to dispose medications if other options arenot available. Mix your drugs with these household products, seal them in an airtight container andthrow it into the garbage. Call [facility]: [phone] to be sure your drugs can be disposed of in this way. Some medicines may require a different approach.4.Never flush your medications down the toilet. IF YOU HAVE BEEN PRESCRIBED AN OPIOIDS FOR PAIN If you have been prescribed an opioid (such as hydrocodone, oxycodone or morphine), it is critical to understand the possible side effects and risks of opioid pain medications. Even when taken as directed, opioids can have several side effects including: Tolerance, meaning you might need to take more of a medication for the same pain relief. Nausea, vomiting and/or constipation. Sleepiness, dizziness, dry mouth, confusion, depression or itching. Physical dependence, meaning you have withdrawal symptoms when a medication is stopped ? this can develop within a few days. KNOW YOUR RESPONSIBILITIES It is important to know exactly how much and how often to take the opioid pain medications you are prescribed. Never take opioids in higher amounts or more often than prescribed. Do not combine opioids with alcohol or other drugs that cause drowsiness, such as benzodiazepines, also known as benzos,including diazepam and alprazolam, muscle relaxants or sleep aids. Never sell or share prescriptionopioids. This is illegal. Store opioids in a secure place and out of reach of others (including children, family, friends and visitors). The last page(s) of this document has been signed and retained as a CHART COPY Signatures Patient Education Materials Fungal Skin Infection (Tinea) Medication Leaflets ketoconazole topical My discharge plan and instructions have been reviewed and explained to me and ILE BEVERLY J understand my current condition and have read and understand these discharge instructions. I have received a written copy of the plan/instructions. If I have questions, I am aware that I should contact my doctor. Patient/Operating Room Assistant Signature: Date/Time: Relationship to Patient: Witness Name/Signature: Date/Time: [facility]07-30-2023 Hospital Discharge instructions Patient Education 03/27/2023 18:15:59 Barbara Skin Infection (Adult) Barbara Skin Infection (Adult) Barbara is type of yeast. It grows naturally on the skin and in the mouth. If it grows out of control, it can cause an infection. Barbara can cause infections in the genital area, skin folds, in the mouth, and under the breasts. Anyone can get this infection. It is more common in a person with a weak immune system, such as from diabetes, HIV, or cancer. It s also more common in someone who has been on antibiotic therapy. And it s more common people who are overweight or who have incontinence. Wearing tight-fitting clothing and taking part in activities with lots of ipws-pm-hroo contact can also put you at risk. Barbara causes the skin to become bright red and inflamed. The border of the infected part of the skin is often raised. The infection causes pain and itching. Sometimes the skin peels and bleeds. In the mouth, barbara is called thrush, and may cause white thickened areas. A Barbara rash is most often treated with an antifungal cream or ointment. The rash will clear a few days after starting the medicine. Infections that don t go away may need a prescription medicine. In rare cases, a bacterial infection can also occur. Home care Your healthcare provider will recommend an antifungal cream or ointment for the rash. He or she mayalso prescribe a medicine for the itch. Follow all instructions for using these medicines. Don t use cornstarch powder. Cornstarch can cause the Barbara infection to get worse. General care: Keep your skin clean by washing the area twice a day. Use the cream as directed until your rash is gone. Once the skin has healed, keep it dry to preventanother infection. If you are overweight, talk with your healthcare provider about a plan to lose excess weight. Avoid clothes that fit tightly. Follow-up care Follow up with your healthcare provider, or as advised. Your rash will clear in 7 to 14 days. Call your healthcare provider if the rash is not gone after 14 days. When to seek medical advice Call your healthcare provider right away if any of these occur: Pain or redness that gets worse or spreads Fluid coming from the skin Yellow crusts on the skin Fever of 100.4 F (38 C) or higher, or as directed by your healthcare provider 3410-5051 [employer]. [address] [place] [address] 13642. All rights reserved. This information is not intended as a substitute for professional medical care. Always follow yourhealthcare professional's instructions. Follow Up Care 03/27/2023 17:48:25 With:ALEX CHEN MD Address: [address] [place] [address] [place] [address]- [phone] When:2-[address] [facility] 07-30-2023 Emergency department Discharge summary Discharge Instructions Thank you for allowing [facility] to assist you with your healthcare needs. The following is importantdischarge information regarding your hospital visit. Diagnosis from Today's Visit Admits alcohol use Barbara of skin dizzy Hypoglycemia Skin rash What to Do Next Instructions from Your Care Team No qualifying data available. Post Acute Orders No qualifying data available. You Need to Schedule the Following Appointments Follow Up with ALEX CHEN MD When Within 2-4 days Where: [address] [place] [address] [place] [address]- [phone] Allergies misc antibiotic Medications Please ask your primary doctor or pharmacist before taking any other medication not listed, including over the counter drugs, herbal medications, vitamins and or supplements as they may interact withyour home medications. What How Much When Instructions Last Dose New nystatin topical (nystatin 100,000 units/ g topical ointment) 1 application Topical Three (3) times a day Duration: 10 Days Printed Prescription Please take this list to your next doctor s visit. Bring all medications you take, including over the counter medications, herbals and other supplements with you to your doctor s visit. Patients and families are reminded to discard old lists and to update any records with all medication providers or retail pharmacies. Education Materials Barbara Skin Infection (Adult) Barbara is type of yeast. It grows naturally on the skin and in the mouth. If it grows out of control, it can cause an infection. Barbara can cause infections in the genital area, skin folds, in the mouth, and under the breasts. Anyone can get this infection. It is more common in a person with a weak immune system, such as from diabetes, HIV, or cancer. It s also more common in someone who has been on antibiotic therapy. And it s more common people who are overweight or who have incontinence. Wearing tight-fitting clothing and taking part in activities with lots of bzrv-qj-niwi contact can also put you at risk. Barbara causes the skin to become bright red and inflamed. The border of the infected part of the skin is often raised. The infection causes pain and itching. Sometimes the skin peels and bleeds. In the mouth, barbara is called thrush, and may cause white thickened areas. A Barbara rash is most often treated with an antifungal cream or ointment. The rash will clear a few days after starting the medicine. Infections that don t go away may need a prescription medicine. In rare cases, a bacterial infection can also occur. Home care Your healthcare provider will recommend an antifungal cream or ointment for the rash. He or she mayalso prescribe a medicine for the itch. Follow all instructions for using these medicines. Don t use cornstarch powder. Cornstarch can cause the Barbara infection to get worse. General care: Keep your skin clean by washing the area twice a day. Use the cream as directed until your rash is gone. Once the skin has healed, keep it dry to preventanother infection. If you are overweight, talk with your healthcare provider about a plan to lose excess weight. Avoid clothes that fit tightly. Follow-up care Follow up with your healthcare provider, or as advised. Your rash will clear in 7 to 14 days. Call your healthcare provider if the rash is not gone after 14 days. When to seek medical advice Call your healthcare provider right away if any of these occur: Pain or redness that gets worse or spreads Fluid coming from the skin Yellow crusts on the skin Fever of 100.4 F (38 C) or higher, or as directed by your healthcare provider [phone] [employer]. [address] [place] [address] 80118. All rights reserved. This information is not intended as a substitute for professional medical care. Always follow yourhealthcare professional's instructions. Additional Information VACCINATE! IT SAVES LIVES! Members of the community who have not yet received the COVID-19 vaccine and would like to receive it can visit one of [facility] vaccine clinics. There are many vaccine clinic locations within the [facility]. For locations and available times, please visit www.[email or web address].[place].gov/. It is important to note that some COVID mobile vaccine clinics are held outdoors and may be canceled in rainy or stormy conditions. To learn more about pediatric vaccinations (ages 5-11), we invite you to visit the [facility] webpage. https://www.[email or web address].org/pages/2863-Ypvyy-Fuxfbjuuajw-Rdoasdqjeu-Qyfwi-Sfw stions.htmlTo learn more about the COVID-19 vaccine, we invite you to visit the CDC website for a list of frequently asked questions. https://www.cdc.gov/coronavirus/2019-ncov/vaccines/faq.html [facility] Patient Portal Access Instructions: Stay connected with your healthcare team and access your personal medical information anytime with the [facility] Patient Portal. If you would like a full copy of your medical records please contact the [facility] Medical Records Department Tuesday through Tuesday between 8a.m. and 4:30p.m. Please follow the directions below to access the portal: 1.Access the email account you provided upon registration to the [facility].2.Look for an invitation email from [facility].3.Open the email and access the invitation link: Accept Invitation to [facility].Fill in the required uriarte to create your account. Sign into [email or web address] with your username and password that you created in the above steps to stay up to date. You can then view a summary of results, a summary of your visits, and the ability to download your summaries to your computer or send the information securely to a physician. Remember that your healthcare information is confidential, so carefully consider who you will allow to register on the [facility] Patient Portal for access to your information. You can also access the [facility] Patient Portal on the Mapiliary kathe. Simply click on Health Records under [facility] and then click on the [employer] logo. HOW TO SAFELY DISPOSE OF PRESCRIPTION MEDICATIONS Please use one of the following methods to safely dispose of your unused medications. 1.Use a drug disposal kit: the drug disposal pouch allows you to safely discard your old and unuseddrugs. Ask your nurse to give you one when you are discharged.2.Visit a local take-back location: Many local pharmacies and police departments have programs that collect old and unwanted prescriptiondrugs. Call your local pharmacy or go to http://BAUNAT.SurDoc/4D1Jq6a to find one close to you.3.Make use of household items: Use cat litter or old coffee grounds to dispose medications if other options arenot available. Mix your drugs with these household products, seal them in an airtight container andthrow it into the garbage. Call [facility]: [phone] to be sure your drugs can be disposed of in this way. Some medicines may require a different approach.4.Never flush your medications down the toilet. IF YOU HAVE BEEN PRESCRIBED AN OPIOIDS FOR PAIN If you have been prescribed an opioid (such as hydrocodone, oxycodone or morphine), it is critical to understand the possible side effects and risks of opioid pain medications. Even when taken as directed, opioids can have several side effects including: Tolerance, meaning you might need to take more of a medication for the same pain relief. Nausea, vomiting and/or constipation. Sleepiness, dizziness, dry mouth, confusion, depression or itching. Physical dependence, meaning you have withdrawal symptoms when a medication is stopped ? this can develop within a few days. KNOW YOUR RESPONSIBILITIES It is important to know exactly how much and how often to take the opioid pain medications you are prescribed. Never take opioids in higher amounts or more often than prescribed. Do not combine opioids with alcohol or other drugs that cause drowsiness, such as benzodiazepines, also known as benzos,including diazepam and alprazolam, muscle relaxants or sleep aids. Never sell or share prescriptionopioids. This is illegal. Store opioids in a secure place and out of reach of others (including children, family, friends and visitors). The last page(s) of this document has been signed and retained as a CHART COPY Signatures Patient Education Materials Barbara Skin Infection (Adult) Medication Leaflets My discharge plan and instructions have been reviewed and explained to me and I,BLAS LUJAN understand my current condition and have read and understand these discharge instructions. I have received a written copy of the plan/instructions. If I have questions, I am aware that I should contact my doctor. Patient/Operating Room Assistant Signature: Date/Time: Relationship to Patient: Witness Name/Signature: Date/Time: [facility]07-30-2023 NoteSinus rhythm Inferior infarct, old Electronic Signature: PERNELL ESCAMILLA DO 03/27/2023 18:33:57[facility] Evaluation + Plan note No data available for this section [facility] Evaluation note* Diagnosis Onset Date Resolution Status Encounter for preventative a dult health care examination acute Hypertension chronic Non-rheumatic mitral regurgitation chronic [facility] Work Phone: Evaluation noteNo assessment information available [facility] Work Phone: Evaluation note* Diagnosis Onset Date Resolution Status Cervical radiculopathy acute Flu vaccine need acute Hypertension chronic Lumbar radiculopathy chronic Neuropathy chronic Tinnitus chronic [facility] Work Phone: [facility] Hospital Discharge instructions No data available for this section [facility] Hospital Discharge instructionsAmbulatory Orders* Dermatology Location: None Selected * Rheumatology Location: None Selected [facility] Work Phone: Progress note No data available for this section [facility] Reason for referral (narrative)No reason for referral information availableSh[facility] Work Phone: Assessments Diagnosis Non-rheumatic mitral regurgi tation - Primary Ventricular diastolic dysfun ction determined by echocardiography Diagnosis Mitral valve replaced - Prim celina Heart valve replaced by other means Diagnosis SOB (shortness of breath) Shortness of breath Diagnosis Non-rheumatic mitral regurgi tation - Primary Diagnosis Severe mitral regurgitation by prior echocardiogram - Primary Nonsustained ventricular tac hycardia (HCC) Dyslipidemia Other and unspecified hyperlipidemia Hiatal hernia Diaphragmatic hernia without mention of obstruction or gangrene Psoriasis Other psoriasis Chronic low back pain, unspe cified back pain laterality, with sciatica presence unspecified History of cocaine abuse Instructions * Patient Instructions - Shea Cesar MD - 09/13/2017 1:57 PM EST Mitral Valve Prolapse: Care Instructions Your Care Instructions Your heart is a muscular pump that has four chambers and four valves. Your mitral valve is like a one-way gate that regulates blood flow in your heart. It allows blood to flow in only one direction, from the upper to the lower heart chamber on the left side of the heart. Normally the mitral valve closes after blood flows through it. This keeps blood from leaking back into the upper chamber. In mitral valve prolapse, the flap of the valve bulges backward (prolapses) into the upper chamber. In most cases, a prolapse does not cause a problem. This is because the seal between the two heart chambers remains tight enough to prevent a leak, and blood moves normally through the valve. You will probably not need treatment for mitral valve prolapse. You may not have symptoms. But you have a risk for a problem called mitral valve regurgitation. With this problem, the flaps of the mitral valve do not seal tightly and blood leaks back into the upper chamber. Your doctor will likely check for signs of this problem at regular checkups. Follow-up care is a cates part of your treatment and safety. Be sure to make and go to all appointments, and call your doctor if you are having problems. It's also a good idea to know your test resultsand keep a list of the medicines you take. How can you care for yourself at home? Lifestyle changes Do not smoke. If you need help quitting, talk to your doctor about stop-smoking programs and medicines. These can increase your chances of quitting for good. Eat heart-healthy foods such as fruits, vegetables, whole grains, fish, lean meats, and low-fat or nonfat dairy foods. Limit sodium, sugars, and alcohol. Stay at a healthy weight. Lose weight if you need to. Activity Be active. If you have not been active before, talk with your doctor before starting an exercise program. Get at least 30 minutes of exercise on most days of the week. Walking is a good choice. You also may want to do other activities, such as running, swimming, cycling, or playing tennis or team sports. When should you call for help? Call your doctor now or seek immediate medical care if: You have new or increased shortness of breath. You have new or worse fluttering in your chest or skipped heartbeats. Watch closely for changes in your health, and be sure to contact your doctor if you are not gettingbetter as expected. Where can you learn more? Log into your personal health record on https://[employer].SHEEX and enter V423 in the Education box to learn more about Mitral Valve Prolapse: Care Instructions. Current as of: September 24, 2015 Content Version: 11.2 1728-7125 [employer] (T/A). Care instructions adapted under license by your healthcare professional. If you have questions about a medical condition or this instruction, always ask your healthcare professional. [employer] (T[employer]) disclaims any warranty or liability for your use of this information. Mitral Valve Regurgitation: Care Instructions Your Care Instructions The mitral valve lets blood flow from the upper to lower areas of the heart. Mitral valve regurgitation occurs when the valve cannot close all the way and blood backs up (regurgitates) into the upperarea of the heart. This causes the heart to work harder to pump the extra blood. Mild regurgitation causes few problems. Many people have it for many years without having problems.But if the regurgitation is severe, it can weaken the heart and lead to heart failure. The causes of mitral valve regurgitation include a heart attack, heart infection (endocarditis), mitral valve prolapse, cardiomyopathy, calcium buildup in the heart, the weight-loss medicine Fen-Phen, and diseases such as lupus and rheumatoid arthritis. Some people are born with the valve problem. Your doctor may just want to watch your health closely if you have mild mitral valve regurgitation.For more severe disease, you may need medicine or surgery to fix the valve. Follow-up care is a cates part of your treatment and safety. Be sure to make and go to all appointments, and call your doctor if you are having problems. It's also a good idea to know your test resultsand keep a list of the medicines you take. How can you care for yourself at home? Be safe with medicines. Take your medicines exactly as prescribed. Call your doctor if you think you are having a problem with your medicine. You will get more details on the specific medicines your doctor prescribes. Eat heart-healthy foods such as fruits, vegetables, whole grains, fish, lean meats, and low-fat or nonfat dairy foods. Limit sodium, sugar, and alcohol. Be active. Ask your doctor what type and level of exercise is safe for you. Walking is a good choice. You also may want to swim, bike, or do other activities. Let your doctor know if your ability to exercise changes. Do not smoke. If you need help quitting, talk to your doctor about stop-smoking programs and medicines. These can increase your chances of quitting for good. Stay at a healthy weight. Lose weight if you need to. Avoid colds and flu. Get a pneumococcal vaccine shot. If you have had one before, ask your doctor if you need another dose. Get a flu vaccine every year. Take care of your teeth and gums. Get regular dental checkups. Good dental health is important because bacteria can spread from infected teeth and gums to the heart valves. When should you call for help? Call 911 anytime you think you may need emergency care. For example, call if: You have severe trouble breathing. You cough up pink, foamy mucus. You have symptoms of a heart attack. These may include: Chest pain or pressure, or a strange feeling in the chest. Sweating. Shortness of breath. Nausea or vomiting. Pain, pressure, or a strange feeling in the back, neck, jaw, or upper belly or in one or both shoulders or arms. Lightheadedness or sudden weakness. A fast or irregular heartbeat. After you call 911, the central control room operator may tell you to chew 1 adult-strength or 2 to 4 low-dose aspirin. Wait for an ambulance. Do not try to drive yourself. Call your doctor now or seek immediate medical care if: You have new or increased shortness of breath. You are dizzy or lightheaded, or you feel like you may faint. You have sudden weight gain, such as 3 pounds or more in 2 to 3 days. You have increased swelling in your legs, ankles, or feet. You are suddenly so tired or weak that you cannot do your usual activities. Watch closely for changes in your health, and be sure to contact your doctor if you develop new symptoms. Where can you learn more? Log into your personal health record on https://[employer].SHEEX and enter G003 in the Education box to learn more about Mitral Valve Regurgitation: Care Instructions. Current as of: September 24, 2015 Content Version: 11.2 8832-1477 [employer] (T[employer]). Care instructions adapted under license by your healthcare professional. If you have questions about a medical condition or this instruction, always ask your healthcare professional. [employer] ([employer] disclaims any warranty or liability for your use of this information. Mitral Valve Repair or Replacement: Before Your Surgery What is mitral valve repair or replacement? Mitral valve surgery can repair or replace your heart's mitral valve. The new valve may be mechanical or made of animal tissue, often from a pig. Your doctor will talk with you about which type of valve is best for you. The mitral valve opens and closes to keep blood flowing in the proper direction through your heart.When the mitral valve does not close properly, it's called mitral valve regurgitation. If the valveis very tight and narrow, it's called mitral valve stenosis. In both of these cases, blood does notflow through the heart the right way. The doctor will make a cut in the skin over your breastbone (sternum). This cut is called an incision. Then the doctor will cut through your sternum to reach your heart. The doctor will connect you to a heart-lung bypass machine. It adds oxygen to your blood and moves the blood through your body. This machine will allow the doctor to stop your heartbeat while he or she works on your heart. After the doctor has repaired or replaced your mitral valve, he or she will restart your heartbeat.Then the doctor will use wire to put your sternum back together. Your incision will be closed with stitches or elda. The wire will stay in your chest. The incision will leave a scar that will fadewith time. You will stay in the hospital for 3 to 8 days after surgery. Follow-up care is a cates part of your treatment and safety. Be sure to make and go to all appointments, and call your doctor if you are having problems. It's also a good idea to know your test resultsand keep a list of the medicines you take. What happens before surgery? Surgery can be stressful. This information will help you understand what you can expect. And it will help you safely prepare for surgery. Preparing for surgery Understand exactly what surgery is planned, along with the risks, benefits, and other options. Tell your doctors ALL the medicines, vitamins, supplements, and herbal remedies you take. Some of these can increase the risk of bleeding or interact with anesthesia. If you take blood thinners, such as warfarin (Coumadin), clopidogrel (Plavix), or aspirin, be sure to talk to your doctor. He or she will tell you if you should stop taking these medicines before your surgery. Make sure that you understand exactly what your doctor wants you to do. Your doctor will tell you which medicines to take or stop before your surgery. You may need to stoptaking certain medicines a week or more before surgery. So talk to your doctor as soon as you can. If you have an advance directive, let your doctor know. It may include a living will and a durable power of derrick worker well service for health care. Bring a copy to the hospital. If you don't have one, you may wantto prepare one. It lets your doctor and loved ones know your health care wishes. Doctors advise that everyone prepare these papers before any type of surgery or procedure. What happens on the day of surgery? Follow the instructions exactly about when to stop eating and drinking. If you don't, your surgery may be canceled. If your doctor told you to take your medicines on the day of surgery, take them with only a sip of water. Take a bath or shower before you come in for your surgery. Do not apply lotions, perfumes, deodorants, or nail faroese. Do not shave the surgical site yourself. Take off all jewelry and piercings. And take out contact lenses, if you wear them. At the hospital or surgery center Bring a picture ID. The area for surgery is often marked to make sure there are no errors. You will be kept comfortable and safe by your anesthesia provider. You will be asleep during the surgery. The surgery will take about 3 to 5 hours. After surgery You will go to the intensive care unit (ICU) right after surgery. You will probably stay in the ICUfor 1 or 2 days before you go to your regular hospital room. You will have a breathing tube down your throat. This is usually removed within 6 hours after surgery. You will not be able to talk or drink liquids while the tube is in your throat. After the tube is removed, your throat will feel dry and scratchy. Your nurse will tell you when it is safe to drinkliquids again. As you wake up in the ICU, the nurse will check to be sure you are stable and comfortable. It is important for you to tell your doctor and nurse how you feel and ask questions about any concerns you may have. You will have a thin plastic tube in a vein in your neck. This tube is called a catheter. It is used to keep track of how well your heart is working. This is usually removed in 1 to 3 days. You will have chest tubes to drain fluid and blood after surgery. The fluid and extra blood are normal. They usually last for only a few days. The chest tubes are usually removed in 1 or 2 days. You will have several thin wires coming out of your chest near your incision. These wires can help keep your heartbeat steady after surgery. They will be removed before you go home. Going home Be sure you have someone to drive you home. Anesthesia and pain medicine make it unsafe for you to drive. You will be given more specific instructions about recovering from your surgery. They will cover things like diet, wound care, follow-up care, driving, and getting back to your normal routine. When should you call your doctor? You have questions or concerns. You don't understand how to prepare for your surgery. You become ill before the surgery (such as fever, flu, or a cold). You need to reschedule or have changed your mind about having the surgery. Where can you learn more? Log into your personal health record on [email or web address] and enter O995 in the Education box to learn more about Mitral Valve Repair or Replacement: Before Your Surgery. Current as of: September 24, 2015 Content Version: 11.2 6269-5590 [employer] ([employer] Care instructions adapted under license by your healthcare professional. If you have questions about a medical condition or this instruction, always ask your healthcare professional. [employer] ([employer]) disclaims any warranty or liability for your use of this information. in this encounter Summary Purpose Family History No Family History Records Found Relationship Condition Age at Onset Recorded Date/T farrah mother Diabetes mellitus Unknown Advance Directives No Advanced Directives Records FoundLatest Code Status on File Code Status Date Activated Date Inactivated Comments Full Code 11/03/2017 9:29 AM Full Code 11/02/2017 11:01 AM 11/03/2017 9:29 AM Advance Directive Response Recorded Date/ Time Living Will No September 09 12:07pm Power of Fish Trapper No September 09, 2021 12:07pm Advance Directive Response Recorded Date/ Time Living Will No September 09 11:07am Power of Fish Trapper No September 09, 2021 11:07am Advance Directive Response Recorded Date/ Time Living Will No April 28 9:58pm Power of Fish Trapper No April 28, 023 9:58pm Chief Complaint and Reason for Visit Chief Complaint ROUTINE VISIT FOR CT DS Reason for Visit Encounter for [facility] care examination Hypertension Non-rheumatic mitral regurgitation Chief Complaint SCREENING Chief Complaint SCREENING Follow up Reason for Visit Cervical radiculopat hy Flu vaccine need Hypertension Lumbar radiculopathy Neuropathy Tinnitus Chief Complaint MULTIPLE COMPLAINTS Chief Complaint Admit Date PROLIA February 01, 2025 10:41 am Chief Complaint Admit Date PROLIA February 01, 2025 10:41 am MED FU May 10, 2025 1:46pm Reason for Visit Admit Date Osteoporosis February 01, 2025 10:41 am Additional Source Comments INFORMATION SOURCE (unrecogn ized section and content) DATE CREATED AUTHOR 02/16/2018 [facility] DATE CREATED AUTHOR AUTHOR'S ORGANIZ ATION 02/16/2018 [facility] DATE CREATED AUTHOR AUTHOR'S ORGANIZ ATION 02/17/2018 [facility] DATE CREATED AUTHOR AUTHOR'S ORGANIZ ATION 02/20/2018 [facility] DATE CREATED AUTHOR AUTHOR'S ORGANIZ ATION 02/21/2018 [facility] DATE CREATED AUTHOR AUTHOR'S ORGANIZ ATION 02/21/2018 [facility] DATE CREATED AUTHOR AUTHOR'S ORGANIZ ATION 02/22/2018 [facility] DATE CREATED AUTHOR AUTHOR'S ORGANIZ ATION 07/01/2023 [facility] ([place] DATE CREATED AUTHOR AUTHOR'S ORGANIZ ATION 05/12/2025 [facility] Goals (unrecognized section and content) Goals may be documented in a n alternate sectionGoals may be documented in an alternate sectionGoals may be documented in an alternate section No data available for this section No data available for this sectionGoals may be documented in an alternate section No data available for this sectionGoals may be documented in an alternate sectionGoals may be documented in an alternate section Care Teams (unrecognized sec tion and content) Team Status: Active Member Role Status Dates Dr. Alex Chen MD Family Provider Active Dr. Alex Chen MD Primary Care Provider Active Team Status: Inactive Member Role Status Dates Dr. Alex Chen MD Primary Care Saurabh shelley, Attending Provider, Referring Provider Active Team Status: Inactive Member Role Status Dates Dr. Alex Chen MD Primary Care Provider Active Marco Antonio Castrejon BEAM DYER OPERATOR, BEAM DYER OPERATOR-C Attending Provider, Referring Prov ider Active Team Status: Inactive Member Role Status Dates Dr. Alex Chen MD Primary Care Provider Active Dr. Ricki Peña MD Emergency Provider Active Team Status: Active Member Role Status Dates Dr. Alex Chen MD Primary Care Provider Active Team Status: Inactive Member Role Status Dates Dr. Alex Chen MD Primary Care Provider Active Start: February 01, 2025 End: February 01, 2025 Dr. Alex Chen MD Referring Provider Active Start: February 01, 2025 End: February 01, 2025 BIM NURSE Attending Provider Active Start: 2024 End: February 01, 2025 Team Status: Active Member Role/Relationship Status Dates Dr. Alex Chen MD Primary Care Provider Active Team Status: Inactive Member Role/Relationship Status Dates Dr. Alex Chen MD Primary Care Provider Active Start: February 01, 2025 End: February 01, 2025 Dr. Alex Chen MD Attending Provider Active Start: February 01, 2025 End: February 01, 2025 Dr. Alex Chen MD Referring Provider Active Start: February 01, 2025 End: February 01, 2025 Team Status: Inactive Member Role/Relationship Status Dates Dr. Alex Chen MD Primary Care Provider Active Start: May 10, 2025 End: May 10, 2025 Dr. Alex Chen MD Attending Provider Active Start: May 10, 2025 End: May 10, 2025 Dr. Alex Chen MD Referring Provider Active Start: May 10, 2025 End: May 10, 2025 FOR RECORDS PERTAINING TO PATIENTS WHO ARE OR HAVE BEEN ENROLLED IN A CHEMICAL DEPENDENCY/SUBSTANCEABUSE PROGRAM, SOME INFORMATION MAY BE OMITTED. This clinical summary was aggregated from multiple sources. Caution should be exercised in using it in the provision of clinical care. This summary normalizes information from multiple sources, and as a consequence, information in this document may materially change the coding, format and clinical context of patient data. In addition, data may be omitted in some cases. CLINICAL DECISIONS SHOULD BE BASED ON THE PRIMARY CLINICAL RECORDS. [employer] provides no warranty or guarantee of the accuracy or completeness of information in this document.
== END 2025-07-18 15:02 | disposition short-term general hospital (02) ==
PROVIDERS: Emergency Provider Surgery; PCP Internal Medicine; Visit Provider Surgery
DX: S72.012A Unspecified intracapsular fracture of left femur, initial encounter for closed fracture (principal); J44.9 Chronic obstructive pulmonary disease, unspecified; F41.9 Anxiety disorder, unspecified; K21.9 Gastro-esophageal reflux disease without esophagitis; F32.A Depression, unspecified; I10 Essential (primary) hypertension; D72.829 Elevated white blood cell count, unspecified; F10.129 Alcohol abuse with intoxication, unspecified; W19.XXXA Unspecified fall, initial encounter; E86.0 Dehydration; R74.01 Elevation of levels of liver transaminase levels
CPT/HCPCS: 51702; 70450; 71045; 72125; 73502; 80053; 80307; 81001; 82077; 82550; 85025; 85610; 85730; 93005; 96361; 96374; 96375; 99285; A4216; J2405